=== PATIENT | male | born 1950 | race Caucasian/White ===

== ENCOUNTER 2018-05-31 15:54 | Inpatient (IN) | payer OTHER ==
[2018-05-31 18:15] LABS: BASO % 0.6 % (0-2.0); EOS % 0.1 % (0-4.5); HEMATOCRIT 24.8 % (35.4-49); HEMOGLOBIN 8.2 GM/dL (11.7-16.9); LYMPH % 5.4 % (8-40); MCH 29.4 pg (25.7-33.7); MCHC 33.1 g/dl (32.0-35.9); MEAN CELL VOLUME 88.8 fl (80-96); MEAN PLT VOLUME 7.8 fl (7.5-11.1); MONO % 4.6 % (3.8-10.2); NEUT % 89.3 % (42.8-82.8); PLATELET COUNT 270 K/MM3 (134-434); RBC 2.79 M/mm3 (4.00-5.60); RDW 18.4 % (11.9-15.9); WHITE BLOOD COUNT 10.6 K/mm3 (4.0-10.0)
--- NOTE | 2018-05-31 18:16 | PDOC ---
History of Present Illness - General Chief Complaint: Blood Pressure Problem Stated Complaint: Blood Pressure Problem Time Seen by Provider: 05/31/18 17:20 History Source: Patient, Family Exam Limitations: No Limitations - History of Present Illness Initial Comments: 05/31/18 18:12 Maksim 67 YOM with h/o CAD s/p CABG, CHF with Defibrillator, COPD on 2-3L O2, ESRD on T//Sa HD via tunnel cath, HTN, HLD, hypothyroidism, gout, BPH, rt IT hip fx s/p repair, c/b ?VTE provoking mesenteric ischemia now on Eliquis, Recent mesenteric ischemia s/p colectomy in 04/2018 at [facility], s/p paracentesis with intra abdominal fluid/SBP/infection? s/p abx. From rehab facility presenting with anterior substernal chest pain, palpitations , sweats and sob at 2pm today, since resolved. also noted to be hypotensive earlier, pt states there is history of hypotension and he is on midodrine. Social: former smoker, resides at [facility] ROS Constitutional: no fevers or chills. HEENT: no headache or dizziness. No congestion. No visual/hearing disturbances. CVS: no syncope. +cp, palp Resp: +sob. No cough. Gastrointestinal: no abdominal pain, nausea or vomiting. Genitourinary: no urinary sx, hematuria. MUSCULOSKELETAL: No joint pain and swelling. No neck or back pain. SKIN: no redness or skin changes, no discharge, no rash. No wounds. Hematologic: no easy bruising/bleeding. NEUROLOGIC: No headache, dizziness, LOC or altered mental status. No weakness, numbness or tingling. Allergic/Immunologic: no allergies All other systems reviewed and negative, or as documented in HPI. PE: General: Awake, malaised appearing HEENT: NCAT, PERRL, EOMI, left eye lid with soft yellow nodular lesion, no oropharyngeal lesions, dry mucus membranes Resp: CTAB, normal and even respirations, no respiratory distress CVS: RRR, no murmurs, 2+ peripheral pulses throughout, no peripheral edema Chest: anterior sternotomy scar Abdomen: soft, obese, nontender, +fluid wave. no peritoneal signs. mid abdominal ex-lap vertical scar. Back: nontender, normal inspection and ROM MSK: no edema, NAM x4, ROM intact. No clubbing or cyanosis. normal bulk and tone. Extremities: no calf tenderness Neuro: alert, oriented appropriately; no focal neurologic deficits Skin: cool to touch, cap refill <2 sec, pale 06/04/18 07:43 Past History - Past Medical History Allergies/Adverse Reactions: Allergies Allergy/AdvReac Type Severity Reaction Status Date / Time gluten Allergy Verified 05/31/18 19:44 No Known Drug Allergies Allergy Verified 05/31/18 19:44 Home Medications: Ambulatory Orders Allopurinol [Zyloprim -] 1 tab PO DAILY 03/17/18 Amiodarone HCl 1 tab PO DAILY 03/17/18 Aspirin [ASA -] 81 mg PO DAILY 03/17/18 Carvedilol 1 tab PO BID 03/17/18 Levothyroxine [Synthroid -] 1 tab PO DAILY 03/17/18 Pravastatin Sodium [Pravachol -] 1 tab PO DAILY 03/17/18 Zolpidem Tartrate [Ambien Cr] 1 tab PO HS 03/17/18 Acetaminophen [Tylenol] 650 mg PO DAILY PRN 05/31/18 Apixaban [Eliquis -] 2.5 mg PO BID 05/31/18 Calcium Carbonate [Calcium] 500 mg PO AC 05/31/18 Citalopram Hydrobromide [Citalopram HBr] 20 mg PO DAILY 05/31/18 Cyanocobalamin [Vitamin B12 -] 100 mcg PO DAILY 05/31/18 Folic Acid - 1 mg PO DAILY 05/31/18 Melatonin/Pyridoxine HCl (B6) [Melatonin 10 mg Tablet] 1 each PO HS 05/31/18 Midodrine HCl [Proamatine -] 5 mg PO TID 05/31/18 Vit B Comp No.3/Folic/C/Biotin [Krystina-Zane Rx Tablet] 1 each PO DAILY 05/31/18 Anemia: Yes Asthma: No Cancer: No Cardiac Disorders: Yes (defibrillator (Chevia)) CVA: No COPD: Yes CHF: Yes Dementia: No Diabetes: No GI Disorders: Yes (celiac sprue) Disorders: No HTN: No Hypercholesterolemia: No Liver Disease: No Seizures: No Thyroid Disease: Yes - Surgical History Cardiac Surgery: Yes (2006 bypass 5,defib) Orthopedic Surgery: Yes (right arm fracture repair) - Suicide/Smoking/Psychosocial Hx Smoking History: Former smoker Have you smoked in the past 12 months: No If you are a former smoker, when did you quit?: 12yrs Hx Alcohol Use: No Drug/Substance Use Hx: No Substance Use Type: None Hx Substance Use Treatment: No *Physical Exam - Vital Signs Last Vital Signs Temp Pulse Resp BP Pulse Ox 105/70 05/31/18 17:30 Moderate Sedation - Procedure Monitoring Vital Signs: Procedure Monitoring Vital Signs Temperature Pulse Rate Respiratory Rate Blood Pressure 105/70 05/31/18 17:30 O2 Sat by Pulse Oximetry (%) Heart Score/ECG Review - ECG Impressions Normal ECG: No Comment:: 05/31/18 18:41 EKG normal sinus rhythm, low voltage, no interval abnormalities, narrow QRS, ST and T wave segments and morphology normal. Nonspecific T wave abnormalities ED Treatment Course - LABORATORY CBC & Chemistry Diagram: 06/03/18 21:10 06/03/18 16:30 - RADIOLOGY Radiology Studies Ordered: Category Date Time Status CHEST X-RAY PORTABLE* [RAD] Stat Radiology 05/31/18 17:51 Ordered ABDOMEN US -LIMITED [US] Stat Ultrasound 05/31/18 17:52 Ordered Medical Decision Making - Medical Decision Making 05/31/18 18:40 I, Jeanne Manriquez MD, attest that this document has been prepared under my direction and personally reviewed by me in its entirety. I further attest, that it accurately reflects all work, treatment, procedures and medical decision -making performed by me. See HPI for details Vital signs reviewed, wnl. mildly soft BP. on home 2-3L O2 via nasal cannula for baseline COPD, BP stable on recheck Prior notes reviewed, including admissions, discharges and consultations. laboratory results and imaging reviewed, basic labs notable for acute change in H/H, drop down to 8.2/24.8 Guaic negative for occult blood. anuric coags_elevated, on NOAC witht INR >5. currently no bleeding episodes/ complication. Cr c/w ESRD. due for dialysis tomorrow. Cardiac panel_trop neg, reassuring; needs trending and serials/tele EKG normal sinus rhythm, low voltage, no interval abnormalities, narrow QRS, ST and T wave segments and morphology normal. Nonspecific T wave abnormalities ED course: uncomplicated. BP soft, but improved, no e/o infection or hypovolemia. has h/o chf, so no fluids for now or gently. RUQ sono to eval for ascites Dispo: anticipate admission for anemia, chest pain eval, deranged INR and trending, abdominal ascites of unclear etiology. 06/04/18 07:45 06/04/18 07:46 06/04/18 07:46 *DC/Admit/Observation/Transfer Diagnosis at time of Disposition: ESRD (end stage renal disease), S/P partial colectomy, Hypotension, Supratherapeutic INR, Chest pain - Discharge Dispostion Condition at time of disposition: Guarded Decision to Admit order: Yes - Referrals - Patient Instructions - Post Discharge Activity
[2018-05-31 18:35] LABS: PROTHROMBIN TIME (PATIENT) 61.5 SEC (9.7-13.0)
[2018-05-31 18:48] LABS: ALBUMIN 1.6 g/dl (3.4-5.0); ALK PHOS 168 U/L (45-117); ANION GAP 11 MMOL/L (8-16); BILIRUBIN,TOTAL 0.4 mg/dL (0.2-1); BLOOD UREA NITROGEN 45 mg/dL (7-18); CALCIUM 7.4 mg/dL (8.5-10.1); CHLORIDE 101 mmol/L (98-107); CO2 25 mmol/L (21-32); CREATININE 5.3 mg/dL (0.55-1.3); GLUCOSE,RANDOM 184 mg/dL (74-106); INR 5.13 (0.83-1.09); MAGNESIUM 2.3 mg/dL (1.8-2.4); PHOSPHOROUS 4.3 mg/dL (2.5-4.9); POTASSIUM 4.9 mmol/L (3.5-5.1); SGOT/AST 26 U/L (15-37); SGPT/ALT 24 U/L (13-61); SODIUM 137 mmol/L (136-145); TOT PROT 4.5 g/dl (6.4-8.2)
--- NOTE | 2018-05-31 22:38 | PDOC ---
*Physical Exam - Vital Signs Last Vital Signs Temp Pulse Resp BP Pulse Ox 98.4 F 75 18 104/54 L 99 05/31/18 20:54 05/31/18 20:54 05/31/18 20:54 05/31/18 20:54 05/31/18 20:54 ED Treatment Course - LABORATORY CBC & Chemistry Diagram: 05/31/18 17:56 05/31/18 17:56 - ADDITIONAL ORDERS Additional order review: Laboratory Results 05/31/18 05/31/18 05/31/18 19:25 18:08 17:56 PT with INR INR PTT (Actin FS) 38.6 H Sodium 137 Potassium 4.9 Chloride 101 Carbon Dioxide 25 Anion Gap 11 BUN 45 H Creatinine 5.3 H Creat Clearance w eGFR 10.84 Random Glucose 184 H Calcium 7.4 L Phosphorus 4.3 Magnesium 2.3 Total Bilirubin 0.4 AST 26 ALT 24 Alkaline Phosphatase 168 H Troponin I 0.02 Total Protein 4.5 L Albumin 1.6 L Stool Occult Blood Negative 05/31/18 17:56 PT with INR 61.50 H INR 5.13 H* PTT (Actin FS) Sodium Potassium Chloride Carbon Dioxide Anion Gap BUN Creatinine Creat Clearance w eGFR Random Glucose Calcium Phosphorus Magnesium Total Bilirubin AST ALT Alkaline Phosphatase Troponin I Total Protein Albumin Stool Occult Blood 05/31/18 17:56 RBC 2.79 L MCV 88.8 D MCHC 33.1 RDW 18.4 H MPV 7.8 D Neutrophils % 89.3 H D Lymphocytes % 5.4 L D Monocytes % 4.6 Eosinophils % 0.1 D Basophils % 0.6 Medical Decision Making - Medical Decision Making 05/31/18 22:36 Patient signed out to me by day attending Dr. Manriquez Will follow up ultrasound, will admit per plan for new anemia, chest pain 05/31/18 23:[address] Mireles will admit to med tele *DC/Admit/Observation/Transfer Diagnosis at time of Disposition: ESRD (end stage renal disease) - Discharge Dispostion Condition at time of disposition: Good Decision to Admit order: Yes - Referrals Referrals: Flakito Cintron MD [Primary Care Provider] - - Patient Instructions - Post Discharge Activity
--- NOTE | 2018-05-31 23:28 | PN ---
Teaching Attending Note Name of Resident: Ej Mireles ATTENDING PHYSICIAN STATEMENT I saw and evaluated the patient. I reviewed the resident's note and discussed the case with the resident. I agree with the resident's findings and plan as documented. PCP: Dr. Su and Dr. Cintron ([facility] in [place]) SUBJECTIVE: Seen and examined, please see resident note and paper documents from [facility] from 05/29 DC for further historical information. In summation he presents from [facility] [place] for hypotension and palpitations /SOB felt today during OT; he did have his HD session cut early due to malaise, etc. yesterday. He has a complicated recent history as documented below; he requested to be taken somewhere other than [facility] so he was brought here. He states that these sx are accompanied by anxiety and his daughter who is bedside does agree. He was found to be hypotensive in a matter that sounds consistent with his prior hospitalization for which he was started on midodrine several days ago. He had transient SOB with the episode. He tells me that he is on home O2 now at 2-3 liters but prior to his recent multiple hospitalizations he was not on any O2 and he hasn't smoked cigarettes in years. His functional status has diminished a remarkable amount since his hip fracture in april (please see below). He is being compliant with his abx for SBP; he had an echo done last week which showed moderate global hypokinesis. He is free of symptoms at this moment. Ascites noted on exam. Summation of prior hospitalization at [facility]: 04/26/2018 with R- intertrochanteric hip fx s/p ORIF complicated by mesenteric ischemia. He had an ex-lap with SBP (~55cm jejunum with extended R-hemicollectomy and 19cm ileum resected). He was discharged to [facility] 05/08/2018 on NOAC. He syncopized on 05/12 and had his AICD interrogated which had no documented significant issues. At that visit he was noted to be anemic and was transfused 2 PRBC at HD. Discharged back to rehab on 05/17. On 05/23/18 to 05/29/18 he was admitted for a third time to [facility] due to SOB/nausea at HD and was treated for SOB 2/2 fluid overload and SBP. That hospitalization he is documented as having a lactic acidosis. Echo done which revealed moderate global hypokinesis. He had imaging done showing free intraperitoneal fluid which grew out Klebsiella oxytoca and he was discharged on PO cipro/flagyl ( total of 14 days abx recommended). He had repeated bouts of hypotension documented; his antihypertensives were DCd and he was started on midodrine 5 TID prior to being sent back to [facility] on 05/29 10 sys ROS done and negative aside from HPI PMH and PSH reviewed; CAD s/p CABG 2005, CHF s/p AICD ([facility]), COPD, Chronic O2 dependence on Home O2 2-3L, ESRD TTS via tunneled catheter, hypotension on midodrine, gout, HTN, HLD, BPH Recent abdominal surgery for mesenteric ischemia Recent hip repair with rehab complicated for the above Home Meds: Eliquis 2.5 BID, amio 200 QD, ASA 81 QD, LT4 100 QD, Ambien 12.5 qHS , pravastatin 40 QD, Loperamide 2mg PO TID, allopurinol 100 QD, metro 500 PO q8H , cipro 500 PO Q12H OBJECTIVE: VS, labs, imaging reviewed NAD, AAO, resting comfortably in bed with no complaints on 2L O2 via NC Abdomen is distended with positive fluid wave; post-op ex-lap scar noted with good healing and no surrounding cellulitic change RRR s1/2 no mgr Lungs CTAB w/ sym exp CN2-12 wnl, no fnd ASSESSMENT AND PLAN: Patient presents after multiple complex admissions at outside facility with recurring hypotension and transient SOB; he wishes to pursue his further care at [facility] 1) Transient Hypotension with SOB -Based on the present information we have, this sounds similar to his previous presentations at the alf. He is on his baseline O2 saturation at 2-3L but this has only been his requirements for the past month since the surgery. -For the SOB we will investigate heart failure as potential cause given that he had prior incomplete HD session with 1+ LE edema and trace crackles on exam. Checking BNP. Just had CTA at other facility to r/o PE so no need to repeat. Checking flu and viral pannel in case he caught a pathogen at his facility. No clarice PNA. COPD exacerbation less likely given that he is a nonsmoker for many years. -For the transient hypotension, we will obtain full old records. Need the full echo report, but he is known to have moderate global hypokinesis per DC summary. He was recently started on midodrine 5 TID for this which will be continued. We will interrogate his pacemaker and check orthostatics. He doesn' t appear septic, etc. but he has multiple other reasons for continued orthostasis. Would also DC his ambien due to potential autonomic interplay. 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 2) Palpitations -Similar to prior episodes he had in the past; no clarice chest pain, persay. Happened with #1. Will place on telemetry and interrogate pacemaker. Will optimize K and Mg. CV to see. 3) +Ascites with SBP, ?h/o cirrhosis -Checking hepatitis pannel and HIV pannel -Continue cipro/flagyl for his full 14 day course. Obtain full sensativities from [facility]. If ID is needed can involve. -Check RUQ US. He does have ascites on exam but don't want to precipitate any hypotension by doing a STAT paracentesis. 4) CHF (need full echo report; moderate global hypokinesis known from [facility]) -Cardiomegaly noted; known moderate global hypokinesis -Fluid management at HD -In terms of PO meds, he is not on any evidence-based BB or DELANO; I suspect this is due to his recurring hypotension. Will need to go over old records to ensure he is on as proper GDMT as possible. CV to see, as well. 5) ESRD on HD -Dry weight in 80kg range; his key sander doesn't come here. Via permacath. -Consult nephro for HD. Monitor BMP, Mg, Phos. Renal Diet. QD weights. He does not make urine. 6) Supratherepeutic INR -On eliquis; holding and hold ASA to mitigate bleeding risk. Trend INR. Resume meds when clinically appropriate. May be due to excretion? He is on dose-adjusted. No s/s bleeding 7) Recent Mesenteric Ischemia -On eliquis with ST INR; post op scars noted. -Resume eliquis when clinically appropriate; obtain old surgical records. 8) Recent R-intertrochanteric fx s/p ORIF 04/26 -Has not been ambulating post op. Consult PT. Pain is controlled at this point. 9) HTN -Home meds DCd on prior visit due to recurring hypotension 10) HLD -Continue home statin 11) Recurring transient hypotension on midodrine -Per above 12) Hypothyroidism -Check TSH, continue LT4 13) Hx Gout -Continue allopurinol 14) Hx CAD s/p CABG 2005 -Resume ASA when clinically appropriate. Continue statin. not documented as being on plavix, BB, delano. CV seeing for above issue. 15) Hypoalbuminemia -Check prealbumin; consult nutrition 16) Chronic Normocytic Anemia -Has required transfusions in past; monitor and XF perameter of 8 17) Leukocytosis -Could be due to ongoing issues from SBP. Trend and obtain old labs from [facility] to compare. 18) Weakness -Consulting PT 19) Need for AVF -Planning as outpatient; encourage followup FENA -2L fluid restriction -PRN replete; QD BMP, Mg, Phos -Renal diet -As tolerated with PT consult Full Code
--- NOTE | 2018-06-01 01:02 | HP ---
<Sara Kapadia - Last Filed: 06/05/18 06:44> CHIEF COMPLAINT: SOB + Palpitations + Chest pain PCP: Dr. Cintron CARDIO: Dr. Shah ([facility]) HISTORY OF PRESENT ILLNESS: 67 y/o F with PMHx of CAD s/p CABG, Defibrillator ([employer]), COPD (on 2-3L Home O2), ESRD (On HD // via Right Tunnel Cath), CHF presents from [facility]) with Chest pain. Patients daughter was present at bedside and provided the bulk of the history. In early April, Patient had his Right Hip repaired s/p fall. A few days later patient became unresponsive and was found to have VTE provoking mesenteric ischemia for which a colectomy was preformed. Since then, patient has been declining, becoming more anxious and lethargic. One week ago, patients HD session was stopped short because he became nauseous. Later that day he was sent to [facility] for lethargy and was found to have ascities for which a paracentesis was preformed; Unclear if the fluid was infected however patient was discharged on Metronidazole 500mg PO. Earlier today, patient became anxious and ended his HD session early again. Today while sitting, patient felt a 5/10 substernal chest pain described as a nonradiating Ache. It was accompanied by palpitations, SOB and diaphoresis at approx. 2pm. Currently his chest pain in 0/10. Patient mentions his chest pain comes on with thoughts of fear and anxiety. He has had this combination of symptoms The daughter mentions that the patient has had increased anxiety since begining HD approximately 2 years ago, and it has become more intense since his hip sx. Additionally she mentions that his anxiety contributes to his palpitations. He has had psych follow up at this Rehab center and has mentioned "feelings of uselessness" to his daughter. Patient recently started on Midodrine approx. 1 week ago; his BP at the rehab has reached 75/45 earlier today. 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 Ambulation: Without assistance Residence: [facility] Family History: Father: after MS at age 52 Mother: Heart disease Allergies gluten Allergy (Verified 05/31/18 19:44) No Known Drug Allergies Allergy (Verified 05/31/18 19:44) HOME MEDICATIONS: Home Medications Medication Instructions Recorded Allopurinol [Zyloprim -] 1 tab PO DAILY 03/17/18 Amiodarone HCl 1 tab PO DAILY 03/17/18 Aspirin [ASA -] 81 mg PO DAILY 03/17/18 Carvedilol 1 tab PO BID 03/17/18 Levothyroxine [Synthroid -] 1 tab PO DAILY 03/17/18 Pravastatin Sodium [Pravachol -] 1 tab PO DAILY 03/17/18 Zolpidem Tartrate [Ambien Cr] 1 tab PO HS 03/17/18 Acetaminophen [Tylenol] 650 mg PO DAILY PRN 05/31/18 Apixaban [Eliquis -] 2.5 mg PO BID 05/31/18 Calcium Carbonate [Calcium] 500 mg PO AC 05/31/18 Citalopram Hydrobromide 20 mg PO DAILY 05/31/18 [Citalopram HBr] Cyanocobalamin [Vitamin B12 -] 100 mcg PO DAILY 05/31/18 Folic Acid - 1 mg PO DAILY 05/31/18 Melatonin/Pyridoxine HCl (B6) 1 each PO HS 05/31/18 [Melatonin 10 mg Tablet] Midodrine HCl [Proamatine -] 5 mg PO TID 05/31/18 Vit B Comp No.3/Folic/C/Biotin 1 each PO DAILY 05/31/18 [Krystina-Zane Rx Tablet] REVIEW OF SYSTEMS As per HPI PHYSICAL EXAMINATION Vital Signs - 24 hr 05/31/18 05/31/18 05/31/18 17:30 18:35 19:00 Temperature Pulse Rate [ 77 72 Left Radial] Respiratory 18 Rate Blood Pressure 105/70 106/59 L 88/56 L [Arm] O2 Sat by Pulse 100 100 Oximetry (%) 05/31/18 05/31/18 19:44 20:54 Temperature 98.4 F Pulse Rate [ 72 75 Left Radial] Respiratory 20 18 Rate Blood Pressure 107/54 L 104/54 L [Arm] O2 Sat by Pulse 100 99 Oximetry (%) GENERAL: A&Ox3, NAD HEAD: NCAT EYES: PERRL, EOMI EARS, NOSE, THROAT: Oropharynx clear without exudates. Moist mucous membranes. NECK: No JVD, Right sided tunnel Catheter placement LUNGS: CTA b/l, No wheezes, no crackles, on 2L NC HEART: Regular rate and rhythm, normal S1 and S2 without murmur ABDOMEN: Soft, nontender, Distended with positive fluid wave, + bowel sounds, no guarding, no rebound EXTREMITIES: 2+ pulses, warm, No peripheral edema. NEUROLOGICAL: Cranial nerves II-XII intact. Normal speech. Gross sensation intact throughout. 5/5 Muscle strength throughout. SKIN: Warm, dry. Post-Colectomy scar mid-abdomen without active drainage, not tender to palpation. Laboratory Results - last 24 hr 05/31/18 05/31/18 05/31/18 17:56 17:56 17:56 WBC 10.6 H RBC 2.79 L Hgb 8.2 L Hct 24.8 L D MCV 88.8 D MCH 29.4 MCHC 33.1 RDW 18.4 H Plt Count 270 D MPV 7.8 D Absolute Neuts (auto) 9.5 H Neutrophils % 89.3 H D Lymphocytes % 5.4 L D Monocytes % 4.6 Eosinophils % 0.1 D Basophils % 0.6 Nucleated RBC % 0 PT with INR 61.50 H INR 5.13 H* PTT (Actin FS) Sodium 137 Potassium 4.9 Chloride 101 Carbon Dioxide 25 Anion Gap 11 BUN 45 H Creatinine 5.3 H Creat Clearance w eGFR 10.84 Random Glucose 184 H Calcium 7.4 L Phosphorus 4.3 Magnesium 2.3 Total Bilirubin 0.4 AST 26 ALT 24 Alkaline Phosphatase 168 H Troponin I 0.02 Total Protein 4.5 L Albumin 1.6 L Stool Occult Blood 05/31/18 05/31/18 05/31/18 18:08 19:25 22:00 WBC RBC Hgb Hct MCV MCH MCHC RDW Plt Count MPV Absolute Neuts (auto) Neutrophils % Lymphocytes % Monocytes % Eosinophils % Basophils % Nucleated RBC % PT with INR INR PTT (Actin FS) 38.6 H Sodium Potassium Chloride Carbon Dioxide Anion Gap BUN Creatinine Creat Clearance w eGFR Random Glucose Calcium Phosphorus Magnesium Total Bilirubin AST ALT Alkaline Phosphatase Troponin I 0.03 Total Protein Albumin Stool Occult Blood Negative ASSESSMENT/PLAN: 67 y/o F with PMHx of CAD s/p CABG, Defibrillator ([employer]), COPD (on 2-3L Home O2), ESRD (On HD // via Right Tunnel Cath), CHF presents with SOB, Palpitations and Hypotension #SOB + Palpitations -Uses 2-3L via NC at home for the past month -CTA at [facility] did not reveal PE -CXR did not reveal effusion, infiltrate -Unclear Etiology however will consider HF -BNP, Flu swab ordered -Monitor Electrolytes -Cardiology (Dr. Rudolph) Consulted #Hypotension -Transient as patient was 104/54 in ED -Will need to obtain Echo report and prior Cardiology records -Will need to interrogate pacemaker -Recently started on Midodrine 5mg TID (as per [facility] DC Summary) -Hold Ambien #Ascites with SNP -S/P Thoracentesis at [facility]; Obtain records for Cytologies -Hepatitis panel, HIV pannel, RUQ US ordered -Continue PO Flagyl #CHF -Will need to obtain Echo report and prior Cardiology records as patients home med list does not include BB or ACEi -Cardiology (Dr. Rudolph) Consulted -Fluid management at HD #ESRD on HD (TuThSat) -Via Tunnel Catheter, Anuric at baseline -Nephrology (Dr. Jones) consulted for HD -Continue to monitor Electrolytes -Renal Diet -Daily weights -Prior plans for AVF were placed on hold as patient had R Hip fx, will need to follow up as outpatient #SupraTherapeutic INR -On Eliquis (Renal dosing) -Will Hold ASA, Eliquis -Trend INR #Normocytic Anemia -Unclear Etiology -Consider Transfusion threshold 8.0 however will leave final decision as per primary team #Leukocytosis -Afebrile however recent hx of Ascites, SBP -Trend #HypoAlbuminemia -In the setting of of CHF, Liver disease; Still consider malnutrition -Will Check Prealbumin -Consider Dietary consult #Mesenteric Ischemia s/p Surgery, on Eliquis -Supratherapeutic INR noted today -Hold Eliquis -Would benefit from obtaining prior surgical records #Hx of Right Hip Fx s/p ORIF -Would benefit from obtaining prior surgical records -Will Consult PT as patient has not been ambulating post-op #Hx of HTN/HLD -Has been becoming Hypotensive at home -Hold anti-htn meds -Continue home dose stating #Hx of HypoThyroidism -Check TSH -Continue home dose Levothyroxine #Hx of Gout -Continue home dose Allopurinol #Hx of CAD s/p CABG -Continue home dose Statin -Hold ASA -Cardiology (Dr. Rudolph) Consulted for further rec's #FEN -PO Fluids -Lytes WNL -Renal diet #PPx -DVT: SCDs Dispo: Admit to tele Visit type - Emergency Visit Emergency Visit: Yes ED Registration Date: 05/31/18 Care time: The patient presented to the Emergency Department on the above date and was hospitalized for further evaluation of their emergent condition. - New Patient This patient is new to me today: Yes Date on this admission: 06/05/18 - Critical Care Critical Care patient: No <Gregg Williamson - Last Filed: 06/12/18 21:00> Seen and examined;agree with all the above aside form as edited by me in my own note. Thank you. Was present for all vital parts of encounter; plan discussed with me. Agree with above as documented by the resident.
[2018-06-01 06:21] LABS: BASO % 0.2 % (0-2.0); EOS % 0.4 % (0-4.5); HEMATOCRIT 23.9 % (35.4-49); HEMOGLOBIN 7.5 GM/dL (11.7-16.9); LYMPH % 7.4 % (8-40); MCHC 31.2 g/dl (32.0-35.9); MEAN CELL VOLUME 89.7 fl (80-96); MEAN PLT VOLUME 7.6 fl (7.5-11.1); MONO % 5.6 % (3.8-10.2); NEUT % 86.4 % (42.8-82.8); PLATELET COUNT 243 K/MM3 (134-434); RBC 2.67 M/mm3 (4.00-5.60); RDW 18.1 % (11.9-15.9); WHITE BLOOD COUNT 9.8 K/mm3 (4.0-10.0)
[2018-06-01 06:48] LABS: ALBUMIN 1.5 g/dl (3.4-5.0); ALK PHOS 149 U/L (45-117); ANION GAP 8 MMOL/L (8-16); BILIRUBIN,TOTAL 0.4 mg/dL (0.2-1); BLOOD UREA NITROGEN 49 mg/dL (7-18); CALCIUM 7.1 mg/dL (8.5-10.1); CHLORIDE 102 mmol/L (98-107); CO2 27 mmol/L (21-32); CREATININE 5.5 mg/dL (0.55-1.3); GLUCOSE,RANDOM 155 mg/dL (74-106); MAGNESIUM 2.2 mg/dL (1.8-2.4); PHOSPHOROUS 4.2 mg/dL (2.5-4.9); POTASSIUM 4.9 mmol/L (3.5-5.1); PREALBUMIN 4.7 mg/dl (20-40); SGOT/AST 20 U/L (15-37); SGPT/ALT 18 U/L (13-61); SODIUM 138 mmol/L (136-145); TOT PROT 4.3 g/dl (6.4-8.2)
--- NOTE | 2018-06-01 09:38 | PN ---
Physical Exam: SUBJECTIVE: Patient seen and examined at bed side today. States that he is feeling uncomfortable in the stretcher. Otherwise he fees fine. Review of systems negative. Patient's mother at bed side requesting for him to get something to eat as he hasn't eaten for more than 25 hours. Information as per discharge summary from [facility] (attached in the chart):- Patient is a 67 year old male new patient at [facility] came from a fci at [facility] for evaluation of chest pain and shortness of breath. Patient reports he was at usual state of health until 04/26/18 then he had a left hip fracture underwent ORIF at [facility]. Had a DVT followed by mesenteric ischemia s/p Ex lap with right hemicolectomy and resection of 55 cm of jejunum. Patient on Eliquis 2.5 mg BID. He was again readmitted for hypotension, shortness of breath and nausea during dialysis, Midodrine was started. At that admission, was found to have ascites on CT abdomen/Pelvis, s/p paracentesis 700 mls, cx positive for Klebsiella. Was treated with Ceftriaxone and discharged home on Ciprofloxacin BID and Metronidazole for 7 days. OBJECTIVE: Vital Signs Period Temp Pulse Resp BP Sys/Emery Pulse Ox Last 24 Hr 98.2 F-98.4 F 72-77 17-20 88-110/54-70 98-100 GENERAL: Middle aged male, lying in bed, is awake, alert, and fully oriented, in no acute distress. EYES: EOM intact, no pallor or icterus. NECK: Supple. LUNGS: B/L coarse breath sounds, no wheeze. HEART: Regular rate and rhythm, S1, S2 with systolic murmur. ABDOMEN: Vertical surgical scar johnny + wellington removed, area looks dry and clean , abdomen is soft, nontender, no organomegaly. UPPER EXTREMITIES: 2+ pulses, warm, well-perfused, no edema. LOWER EXTREMITIES: Left Heel: Stage II ulcer + B/L no edema. NEUROLOGICAL: No facial droop, Normal speech, gait not observed. PSYCH: Normal mood, normal affect. SKIN: Warm, dry, normal turgor, no rashes or lesions noted Laboratory Results - last 24 hr 05/31/18 05/31/18 05/31/18 17:56 17:56 17:56 WBC 10.6 H RBC 2.79 L Hgb 8.2 L Hct 24.8 L D MCV 88.8 D MCH 29.4 MCHC 33.1 RDW 18.4 H Plt Count 270 D MPV 7.8 D Absolute Neuts (auto) 9.5 H Neutrophils % 89.3 H D Lymphocytes % 5.4 L D Monocytes % 4.6 Eosinophils % 0.1 D Basophils % 0.6 Nucleated RBC % 0 PT with INR 61.50 H INR 5.13 H* PTT (Actin FS) Sodium 137 Potassium 4.9 Chloride 101 Carbon Dioxide 25 Anion Gap 11 BUN 45 H Creatinine 5.3 H Creat Clearance w eGFR 10.84 Random Glucose 184 H Calcium 7.4 L Phosphorus 4.3 Magnesium 2.3 Total Bilirubin 0.4 AST 26 ALT 24 Alkaline Phosphatase 168 H Troponin I 0.02 B-Natriuretic Peptide Total Protein 4.5 L Albumin 1.6 L Prealbumin Stool Occult Blood 05/31/18 05/31/18 05/31/18 18:08 19:25 22:00 WBC RBC Hgb Hct MCV MCH MCHC RDW Plt Count MPV Absolute Neuts (auto) Neutrophils % Lymphocytes % Monocytes % Eosinophils % Basophils % Nucleated RBC % PT with INR INR PTT (Actin FS) 38.6 H Sodium Potassium Chloride Carbon Dioxide Anion Gap BUN Creatinine Creat Clearance w eGFR Random Glucose Calcium Phosphorus Magnesium Total Bilirubin AST ALT Alkaline Phosphatase Troponin I 0.03 B-Natriuretic Peptide Total Protein Albumin Prealbumin Stool Occult Blood Negative 06/01/18 06/01/18 06/01/18 05:10 05:30 05:30 WBC 9.8 RBC 2.67 L Hgb 7.5 L Hct 23.9 L MCV 89.7 MCH 28.0 MCHC 31.2 L RDW 18.1 H Plt Count 243 MPV 7.6 Absolute Neuts (auto) 8.4 H Neutrophils % 86.4 H Lymphocytes % 7.4 L D Monocytes % 5.6 Eosinophils % 0.4 D Basophils % 0.2 Nucleated RBC % 0 PT with INR INR PTT (Actin FS) Sodium 138 Potassium 4.9 Chloride 102 Carbon Dioxide 27 Anion Gap 8 BUN 49 H Creatinine 5.5 H Creat Clearance w eGFR 10.39 Random Glucose 155 H Calcium 7.1 L Phosphorus 4.2 Magnesium 2.2 Total Bilirubin 0.4 AST 20 ALT 18 Alkaline Phosphatase 149 H Troponin I 0.03 B-Natriuretic Peptide Total Protein 4.3 L Albumin 1.5 L Prealbumin 4.7 L Stool Occult Blood 06/01/18 07:55 WBC RBC Hgb Hct MCV MCH MCHC RDW Plt Count MPV Absolute Neuts (auto) Neutrophils % Lymphocytes % Monocytes % Eosinophils % Basophils % Nucleated RBC % PT with INR INR PTT (Actin FS) Sodium Potassium Chloride Carbon Dioxide Anion Gap BUN Creatinine Creat Clearance w eGFR Random Glucose Calcium Phosphorus Magnesium Total Bilirubin AST ALT Alkaline Phosphatase Troponin I B-Natriuretic Peptide 36310.4 H Total Protein Albumin Prealbumin Stool Occult Blood Active Medications Generic Name Dose Route Start Last Admin Trade Name Freq PRN Reason Stop Dose Admin Amiodarone HCl mg 06/01/18 10:00 Cordarone - PO DAILY [facility] Citalopram Hydrobromide 20 mg 06/01/18 10:00 Celexa - PO DAILY [facility] Cyanocobalamin 100 mcg 06/01/18 10:00 Vitamin B12 - PO DAILY [facility] Folic Acid 1 mg 06/01/18 10:00 Folic Acid - PO DAILY [facility] Levothyroxine Sodium mcg 06/01/18 10:00 Synthroid - PO DAILY [facility] Metronidazole 500 mg 06/01/18 10:00 Flagyl - PO DAILY [facility] Midodrine 5 mg 06/01/18 14:00 Proamatine - PO TID [facility] Non-Formulary Medication 500 mg 06/01/18 08:30 Calcium Carbonate [Calcium] PO AC [facility] Non-Formulary Medication 1 each 06/01/18 10:00 Vit B Comp No.3/Folic/C/Biotin [Krystina-Zane Rx Tablet] PO DAILY [facility] IMAGING: The CTA of A/P report from 05/23/18 revealed a prior hemicolectomy, dilated loops of small bowel, large volume of ascites with scattered bubbles of free air in the LUQ, homogeneous liver that was not enlarged, normal appearing spleen, non specific segmental small bowel wall thickening. ? if related to surgery vs. bowel leak. CTA of the chest 05/23/18: Report was provided: small rt. pleural effusion, filling defect in SVC around HD catheter, partially occluded infra azygous/ supra azygous SVC, partially occluding filling defect in the lt. brachiocephalic vein, innumerable chest wall and mediastinal collateral 05/24/[address] scan of the A/P with PO and IV contrast to eval for the previously noted air bubbles in ascites: small b/l pleural effusions, no extravasation of contrast, mod amount of fluid in abdomen with thin rim of peripheral enhancement and multiple foci of free air. ? normal peritoneal enhancement with ? resolving post surgical airvs. infectious fluid collection. 05/24/18 US of abdomen at time of paracentesis: innumerable loculations and septations: paracentesis performed in "outer right abdomen". It does appear that 60 cc was removed for labarotory analysis. Ultrasound abdomen 06/01/18: Complex fluid/Ascites with septations seen in [address] abdomen/Pelvis. CXR: s/p CABG, right sided pleural effusion, infiltrate at the bases cannot be excluded. ASSESSMENT/PLAN: Patient is a 67 year old male with PMHx of CAD s/p CABG, Defibrillator ([employer]), COPD (on 2-3L Home O2), ESRD (On HD // via Right Tunnel Cath) , CHF presents from [facility]) with Chest pain. # Chest pain -unlikely ACS Troponin x 3 negative Likely due to anxiety. EKG: Sinus rhythm with prolonged Qtc. ECHO pending CXR: s/p CABG, right sided pleural effusion, infiltrate at the bases cannot be excluded. # Shortness of breath/Palpitations likely from anxiety # Prolonged Qtc Qtc is 544. Avoid qtc prolonging agents. # Recent hx of ascites Paracentesis done at [facility], cx Klebsiella and discharged on Metronidazole and Ciprofloxacin Medical records from [facility] attached in the chart. Ultrasound of abdomen 05/31/18 showed Complex fluid/Ascites with septations seen in 4 quadrants Hepatitis panel, HIV pending Started on IV Flagyl 500 mg TID and IV Ceftriaxone daily. ID consult requested. Pending CT abdomen/Pelvis with IV and PO contrast, HD to follow after CT. GI consult, recommended ID/Surgical evaluation. # History of ischemic colitis s/p right hemicolectomy # Congestive heart failure BNP 60851.4. ECHO pending Hold Coreg 3.125 mg PO BID # ESRD on TTS AVF created on 05/03/18 at [facility]. # Normocytic anemia likely from anemia of chronic disease H/H 8.2/24.8--> 7.5/23.9 Continue Folic acid and Vitamin B12 # CAD s/p CABG Continue Aspirin 81 mg # Hypotensive episodes during dialysis On Midodrine 5 mg TID # Hypothyroidism Continue Synthroid 100 mcg # Insomnia On Melatonin 10 mg, hold for now # Depression Continue Citalopram and Zolpidem # FEN Not on IV Fluids Electrolytes WNL Sodium controlled diet # Prophylaxis For DVT: On Eliquis at home, will hold since he might need thoracocentesis For GI: Not indicated # Code Status: Full Code # Dispo: Admit in Med. Surg. Duration of stay unknown. Plan of care explained to the patient and his family. They verbalized understanding. Case discussed with Dr. Pink. Visit type - Emergency Visit Emergency Visit: Yes ED Registration Date: 05/31/18 Care time: The patient presented to the Emergency Department on the above date and was hospitalized for further evaluation of their emergent condition. - New Patient This patient is new to me today: Yes Date on this admission: 06/01/18 - Critical Care Critical Care patient: No - Discharge Referral Referred to [facility] Med P.C.: No
--- NOTE | 2018-06-01 09:49 | PN ---
Teaching Attending Note Name of Resident: Silvina Cleveland ATTENDING PHYSICIAN STATEMENT I saw and evaluated the patient. I reviewed the resident's note and discussed the case with the resident. I agree with the resident's findings and plan as documented. SUBJECTIVE: Mr Schaeffer complains of weakness. Currently no cp, sob, n/v. OBJECTIVE: Last Vital Signs Temp Pulse Resp BP Pulse Ox 36.8 C 72 17 110/54 L 98 06/01/18 06:20 06/01/18 06:20 06/01/18 06:20 06/01/18 06:20 06/01/18 06:20 Gen: nad Pulm: ctab w/o w/r/r CV: rrr w/o m/r/g Abd: +bs, s/nt, distention/ascites Ext: minimal edema BLE CBC, BMP 06/01/18 05:30 06/01/18 05:30 ASSESSMENT AND PLAN: Problem List - Problems (1) Hypotension Assessment/Plan: -has worsened since surgeries back in April per patient -cannot tolerate hypertensives -on midodrine to maintain blood pressure for HD -? if aspect of sepsis considering loculated ascites -start antibiotics -monitor -continue midodrine Code(s): I95.9 - HYPOTENSION, UNSPECIFIED (2) ESRD (end stage renal disease) Assessment/Plan: -case d/w Dr Jones -planning for HD Code(s): N18.6 - END STAGE RENAL DISEASE (3) Ascites Assessment/Plan: -patient with ischemic colitis s/p partial resection -recent paracentesis at OSH showing SBP -started on antibiotics -U/S here showing loculations -GI and surgery consulted -start on IV rocephin and flagyl -ID consult as well Code(s): R18.8 - OTHER ASCITES (4) Supratherapeutic INR Assessment/Plan: -currently holding eliquis -recheck INR -? if underlying liver pathology as elevated more than expected Code(s): R79.1 - ABNORMAL COAGULATION PROFILE (5) CAD (coronary artery disease) Assessment/Plan: -case d/w Cardiology -ECHO reviewed -holding coreg secondary to hypotension Code(s): I25.10 - ATHSCL HEART DISEASE OF [place] CORONARY ARTERY W/O ANG PCTRS (6) CHF (congestive heart failure) Assessment/Plan: -ECHO reviewed -most likely secondary to incomplete HD -case d/w cardiology -planning for HD Code(s): I50.9 - HEART FAILURE, UNSPECIFIED Qualifiers: Heart failure chronicity: acute on chronic (7) Hypothyroid Assessment/Plan: -continue synthroid Code(s): E03.9 - HYPOTHYROIDISM, UNSPECIFIED (8) SBP (spontaneous bacterial peritonitis) Assessment/Plan: -with loculated ascites -change to IV antibiotics as above -consult GI/ID/surgery Code(s): K65.2 - SPONTANEOUS BACTERIAL PERITONITIS
[2018-06-01] MEDS ORDERED: metroNIDAZOLE 250 MG TABLET PO SCH (10:00)
[2018-06-01] MEDS ORDERED: LEVOTHYROXINE NA 100 MCG TABLET (FP) PO SCH (10:00)
[2018-06-01] MEDS ORDERED: AMIODARONE HCL 200 MG TABLET (FP) PO SCH (10:00)
--- NOTE | 2018-06-01 12:44 | CON.NEP ---
Consult - History of Present Illness History of Present Illness: Patient is a 67 y/o gentleman with a significant past medical history of CAD s/ p CABG, Defibrillator ([employer]), COPD (on 2-3L Home O2), ESRD (On HD / via Right Tunnel Cath), CHF, R-intertrochanteric hip fx s/p ORIF complicated by mesenteric ischemia (04/2018), SBP who presented to [facility] from [facility]) with hypotension and palpitations/SOB while in OT. Furthermore, pt endorses that he has been experiencing anxiety before his HD sessions, last HD was this past Tuesday. Pt endorses he was started on HD approximately 2 years ago via R permacath. Presently resting in bed, family at bedside. Denies sob, chest pain, dizziness currently. Classified Advertising Manager: Dr Flakito Cintron - Alcohol/Substance Use Hx Alcohol Use: No - Smoking History Smoking history: Former smoker Have you smoked in the past 12 months: No If you are a former smoker, when did you quit?: 12yrs Home Medications - Allergies Allergies/Adverse Reactions: Allergies Allergy/AdvReac Type Severity Reaction Status Date / Time gluten Allergy Verified 05/31/18 19:44 No Known Drug Allergies Allergy Verified 05/31/18 19:44 - Home Medications Home Medications: Ambulatory Orders Allopurinol [Zyloprim -] 1 tab PO DAILY 03/17/18 Amiodarone HCl 1 tab PO DAILY 03/17/18 Aspirin [ASA -] 81 mg PO DAILY 03/17/18 Carvedilol 1 tab PO BID 03/17/18 Levothyroxine [Synthroid -] 1 tab PO DAILY 03/17/18 Pravastatin Sodium [Pravachol -] 1 tab PO DAILY 03/17/18 Zolpidem Tartrate [Ambien Cr] 1 tab PO HS 03/17/18 Acetaminophen [Tylenol] 650 mg PO DAILY PRN 05/31/18 Apixaban [Eliquis -] 2.5 mg PO BID 05/31/18 Calcium Carbonate [Calcium] 500 mg PO AC 05/31/18 Citalopram Hydrobromide [Citalopram HBr] 20 mg PO DAILY 05/31/18 Cyanocobalamin [Vitamin B12 -] 100 mcg PO DAILY 05/31/18 Folic Acid - 1 mg PO DAILY 05/31/18 Melatonin/Pyridoxine HCl (B6) [Melatonin 10 mg Tablet] 1 each PO HS 05/31/18 Midodrine HCl [Proamatine -] 5 mg PO TID 05/31/18 Vit B Comp No.3/Folic/C/Biotin [Krystina-Zane Rx Tablet] 1 each PO DAILY 05/31/18 Nephrology Consult - Height Height: 1.73 m - Weight Weight: 78.471 kg - BMI Body Mass Index (BMI): 26.3 - Lab Results CBC,BMP: CBC, BMP 06/01/18 05:30 06/01/18 05:30 Anion Gap: Anion Gap Anion Gap 8 MMOL/L (8-16) 06/01/18 05:30 - Physical Examination Vital Signs: Vital Signs Temperature 98.2 F 06/01/18 06:20 Pulse Rate 72 06/01/18 06:20 Respiratory Rate 17 06/01/18 06:20 Blood Pressure 110/54 L 06/01/18 06:20 O2 Sat by Pulse Oximetry (%) 98 06/01/18 06:20 Constitutional: Yes: Calm Eyes: Yes: EOM Intact (Nodular lesion above left eyelid.) HENT: Yes: Atraumatic, Normocephalic Cardiovascular: Yes: Regular Rate and Rhythm, S1, S2 Respiratory: Yes: Diminished Gastrointestinal: Yes: Soft (Linear Surgical scar abdomen s/p ex-lap), Ascites, Hypoactive Bowel Sounds Access for Hemodialysis: Permacath Extremities: Yes: Other (2= pitting edema b/l lower extremities) Edema: LLE: 2+, RLE: 2+ Neurological: Yes: Alert, Oriented Assessment/Plan Pt is a 67 y/o gentleman with a significant past medical history of CAD s/p CABG , Defibrillator ([employer]), COPD (on 2-3L Home O2), ESRD (On HD // via Right Tunnel Cath), CHF, R-intertrochanteric hip fx s/p ORIF complicated by mesenteric ischemia (04/2018) who presented to [facility] from [facility]) with hypotension and palpitations/SOB while in OT. # ESRD -Will undergo HD session today. Pt endorses that his usual HD time is 3 hours. -Monitor BP -BMP in AM -Antihypertensive medications held due to recent episodes of hypotension. Will continue to follow.
--- NOTE | 2018-06-01 12:46 | EKG ---
Test Reason : Blood Pressure : / mmHG Vent. Rate : 080 BPM Atrial Rate : 080 BPM P-R Int : 202 ms QRS Dur : 108 ms QT Int : 472 ms P-R-T Axes : 016 036 027 degrees QTc Int : 544 ms NORMAL SINUS RHYTHM SEPTAL INFARCT , AGE UNDETERMINED PROLONGED QT ABNORMAL ECG NO PREVIOUS ECGS AVAILABLE Confirmed by SYLVESTER HEMPHILL MD ([id number]) on 06/01/2018 12:46:20 PM Referred By: Confirmed By:SYLVESTER HEMPHILL MD
--- NOTE | 2018-06-01 14:18 | ECHO ---
Name: CARYN, LARY Exam:Adult Echocardiogram Study Date: 06/01/2018 10:30 AM Age: 67 yrs Reason For Study: EVALUATE LV FUNCTION MMode/2D Measurements & Calculations IVSd: 0.90 cm Ao root diam: 3.4 cm LVIDd: 4.2 cm LA dimension: 3.9 cm LVIDs: 3.3 cm LVPWd: 1.00 cm LVPWs: 2.0 cm EDV(Teich): 78.9 ml ESV(Teich): 43.4 ml Doppler Measurements & Calculations MV E max maciel: 41.5 cm/sec Ao V2 max: 105.2 cm/sec MV A max maciel: 65.6 cm/sec Ao max P.5 mmHg MV E/A: 0.63 MV dec time: 0.13 sec LV V1 max P.5 mmHg TR max maciel: 238.9 cm/sec LV V1 max: 79.5 cm/sec TR max P.4 mmHg PA V2 max: 97.1 cm/sec Med Peak E' Maciel: 7.7 cm/sec PA max P.8 mmHg Med E/e': 5.4 Lat Peak E' Maciel: 10.7 cm/sec Lat E/e': 3.9 Procedure A complete two-dimensional transthoracic echocardiogram was performed (2D, M-mode, Doppler and color flow Doppler). Left Ventricle The left ventricle is normal in size. Ejection Fraction = 45-50%. Left ventricular systolic function is mildly reduced. There is mild global hypokinesis of the left ventricle. Right Ventricle The right ventricle is normal in size and function. There is a pacemaker lead in the right ventricle. Atria Normal left and right atrial size and function. Mitral Valve There is no mitral regurgitation noted. Tricuspid Valve There is trace tricuspid regurgitation. Right ventricular systolic pressure is normal. Aortic Valve No hemodynamically significant valvular aortic stenosis. No aortic regurgitation is present. Pulmonic Valve There is no pulmonic valvular regurgitation. Great Vessels The aortic root is normal size. Pericardium/Pleura There is no pericardial effusion. Interpretation Summary Left ventricular systolic function is mildly reduced. There is mild global hypokinesis of the left ventricle. The right ventricle is normal in size and function. There is a pacemaker lead in the right ventricle and atrium. There is trace tricuspid regurgitation. MD Sandro Kemp 06/01/2018 02:17 PM
[2018-06-01] MEDS ORDERED: PT OWN MED DRAWER 7, Y5N ONE (14:43)
--- NOTE | 2018-06-01 14:54 | CON.CARD ---
Consult Consult Specialty:: Cardiology Referred by:: Apryl Reason for Consultation:: hypotension, h/o CHF - History of Present Illness Chief Complaint: hypotension, CHF History of Present Illness: 67M h/o CAD s/p CABG 2005, chronic systolic HF s/p ICD ([employer]), COPD on chronic O2 2-3L, ESRD on HD, hypotension on midodrine, HTN, HLD p/w hypotension, palpitations, dyspnea. Recently admitted to [facility] for hip fx s/p ORIF c/b mesenteric ischemia, s/p ex lap, discharged on eliquis. ICD interrogated 05/12 as patient also had syncope, no events. Echo also was done during that admission which showed moderate global hypokinesis, report not avilable. He also was started on midodrine for hypotension and BP meds were stopped. Presently no chest pain, palps, dizziness, dyspnea. Eliquis and aspirin were stopped due to elevated INR. He used to see Dr. Shah at [place] for cardiology, has not been seen since 2012, recently saw Dr. Stover for device check in clinic 03/2018. Currently he complains of feeling tired, notes that he had a sudden episode of feeling very short of breath yesterday, anxiety , palpitations. - Past Medical History Cardio/Vascular: Yes: CAD Pulmonary: Yes: COPD, O2 Dependent - Alcohol/Substance Use Hx Alcohol Use: No - Smoking History Smoking history: Former smoker Have you smoked in the past 12 months: No If you are a former smoker, when did you quit?: 12yrs Home Medications - Allergies Allergies/Adverse Reactions: Allergies Allergy/AdvReac Type Severity Reaction Status Date / Time gluten Allergy Verified 05/31/18 19:44 No Known Drug Allergies Allergy Verified 05/31/18 19:44 - Home Medications Home Medications: Ambulatory Orders Allopurinol [Zyloprim -] 1 tab PO DAILY 03/17/18 Amiodarone HCl 1 tab PO DAILY 03/17/18 Aspirin [ASA -] 81 mg PO DAILY 03/17/18 Carvedilol 1 tab PO BID 03/17/18 Levothyroxine [Synthroid -] 1 tab PO DAILY 03/17/18 Pravastatin Sodium [Pravachol -] 1 tab PO DAILY 03/17/18 Zolpidem Tartrate [Ambien Cr] 1 tab PO HS 03/17/18 Acetaminophen [Tylenol] 650 mg PO DAILY PRN 05/31/18 Apixaban [Eliquis -] 2.5 mg PO BID 05/31/18 Calcium Carbonate [Calcium] 500 mg PO AC 05/31/18 Citalopram Hydrobromide [Citalopram HBr] 20 mg PO DAILY 05/31/18 Cyanocobalamin [Vitamin B12 -] 100 mcg PO DAILY 05/31/18 Folic Acid - 1 mg PO DAILY 05/31/18 Melatonin/Pyridoxine HCl (B6) [Melatonin 10 mg Tablet] 1 each PO HS 05/31/18 Midodrine HCl [Proamatine -] 5 mg PO TID 05/31/18 Vit B Comp No.3/Folic/C/Biotin [Krystina-Zane Rx Tablet] 1 each PO DAILY 05/31/18 Review of Systems - Review of Systems Constitutional: reports: No Symptoms Eyes: reports: No Symptoms HENT: reports: No Symptoms Neck: reports: No Symptoms Cardiovascular: reports: Edema Respiratory: reports: No Symptoms Gastrointestinal: reports: No Symptoms Genitourinary: reports: No Symptoms Musculoskeletal: reports: No Symptoms Integumentary: reports: No Symptoms Neurological: reports: No Symptoms Endocrine: reports: No Symptoms Hematology/Lymphatic: reports: No Symptoms Psychiatric: reports: No Symptoms Vital Signs: Vital Signs Temperature 98.2 F 06/01/18 06:20 Pulse Rate 70 06/01/18 13:39 Respiratory Rate 20 06/01/18 13:39 Blood Pressure 111/56 L 06/01/18 13:39 O2 Sat by Pulse Oximetry (%) 97 06/01/18 13:53 Constitutional: Yes: Well Nourished, No Distress, Calm Eyes: Yes: Conjunctiva Clear, EOM Intact HENT: Yes: Atraumatic, Normocephalic Neck: Yes: Supple, Trachea Midline Respiratory: Yes: Regular, Rales (bases bilaterally) Gastrointestinal: Yes: Normal Bowel Sounds, Soft Cardiovascular: Yes: Regular Rate and Rhythm JVD: No Carotid Bruit: No PMI: Non-Displaced Heart Sounds: Yes: S1, S2 Musculoskeletal: No: Back Pain Extremities: No: Cold Edema: Yes Edema: LLE: 1+, RLE: 1+ Peripheral Pulses WNL: Yes Peripheral Pulses: 2+ Left Doralis Pedis, 2+ Right Dorsalis Pedis Integumentary: No: Jaundice Neurological: Yes: Alert, Oriented Psychiatric: Yes: Alert, Oriented - Other Data Labs, Other Data: CBC, BMP 06/01/18 05:30 06/01/18 05:30 INR, PTT INR 5.13 (0.83-1.09) H* 05/31/18 17:56 Troponin, BNP 05/31/18 05/31/18 06/01/18 17:56 22:00 05:10 Troponin I 0.02 0.03 0.03 B-Natriuretic Peptide 06/01/18 07:55 Troponin I B-Natriuretic Peptide 88163.4 H Troponin, BNP 05/31/18 05/31/18 06/01/18 17:56 22:00 05:10 Troponin I 0.02 0.03 0.03 B-Natriuretic Peptide 06/01/18 07:55 Troponin I B-Natriuretic Peptide 39246.4 H Assessment/Plan echo 05/2018 nl LV size, mildly reduced function EF 45-50%, mild global hypokinesis of LV, nl RV, ppm lead in RV and RA, tr TR EKG: sinus, prolonged QTC, old septal infarct Shortness of breath, palpitations - trop neg x 3 - BNP elevated however unclear significance in patient with ESRD with known HF, however does have edema, rales on exam - due for HD, nephrology following - also with COPD hx, on chronic O2 - device interrogation pending, [employer] -admitted to tele acute on chronic systolic HF - mildly reduced EF on echo - appears volume up as above, however had partial HD session on Tuesday due to feeling anxious and is due today - volume management per renal - not on DELANO/BB due to low BP Prolonged QTc - avoid QT prolonging agents - maintain K >4, Mg >2 s/p ICD - outpatient follow up, Dr. Stover - recent device checks unremarkable per patient, pending device check here for recnet palps hypotension - continue midodrine ESRD on HD - renal consulted CAD, s/p CABG - cont statin - holding aspirin, elevated INR and anemia mesenteric ischemia - recent dx, s/p surgery during recent admission for hip fx, was started on eliquis - holding eliquis due to elevated INR and anemia anemia - manage per primary
--- NOTE | 2018-06-01 15:32 | PN ---
Teaching Attending Note Name of Resident: Myke Gilliland (nephrology) ATTENDING PHYSICIAN STATEMENT I saw and evaluated the patient. I reviewed the resident's note and discussed the case with the resident. I agree with the resident's findings and plan as documented. Renal Pt is a 67 year old male with pmhx of ESRD, CAD, CABG, COPD, CHF, SBP, DVT, and HLD who presents with shortness of breath. He said it began when he was in rehab. He wantd bipap as it usually helps him however they did not give him any. He later felt worsening shortness of breath and chest discomfort. He is now awake and alert. He is on a TTS HD schedule. He was last dialyzed on Tuesday. He is due for HD today. pmhx esrd cad chf hypothyroidism, aicd, copd hld htn gout pshx aicd cabg allergies gluten family hx denies social hx liven in de ros dyspnea on exertion Current Medications Generic Name Dose Route Start Last Admin Trade Name Freq PRN Reason Stop Dose Admin Amiodarone HCl 200 mg 06/01/18 11:21 Cordarone - PO DAILY JULIAN Calcium Carbonate 500 mg 06/01/18 16:30 Os-Merlin 500mg - PO TIDAC JULIAN Citalopram Hydrobromide 20 mg 06/01/18 13:15 Celexa - PO DAILY JULIAN Cyanocobalamin 100 mcg 06/01/18 13:15 Vitamin B12 - PO DAILY JULIAN Folic Acid 1 mg 06/01/18 13:15 Folic Acid - PO DAILY JULIAN Ceftriaxone Sodium 2 gm in 50 mls @ 100 mls/hr 06/01/18 13:45 Ceftriaxone 2 Gm-D5w Bag IVPB DAILY JULIAN Protocol Metronidazole 500 mg in 100 mls @ 100 mls/hr 06/01/18 13:45 Flagyl 500mg Premixed Ivpb - IVPB Q8H-IV JULIAN Levothyroxine Sodium 100 mcg 06/02/18 07:00 Synthroid - PO DAILY@0700 JULIAN Midodrine 5 mg 06/01/18 14:00 Proamatine - PO TID-MID JULIAN Multivit/Ca Carb/B Cmplx/FA/Prenat 1 tablet 06/01/18 13:30 Nephro-Zane - PO DAILY JULIAN Last Vital Signs Temp Pulse Resp BP Pulse Ox 98.2 F 70 20 111/56 L 97 06/01/18 06:20 06/01/18 13:39 06/01/18 13:39 06/01/18 13:39 06/01/18 13:53 Laboratory Tests 05/31/18 05/31/18 06/01/18 17:56 17:56 05:30 WBC 10.6 H Hgb 8.2 L 7.5 L Sodium Potassium BUN 45 H Creatinine 5.3 H B-Natriuretic Peptide Albumin 1.6 L 06/01/18 06/01/18 05:30 07:55 WBC Hgb Sodium 138 Potassium 4.9 BUN 49 H Creatinine 5.5 H B-Natriuretic Peptide 81438.4 H Albumin 1.5 L Laboratory Tests 05/31/18 05/31/18 06/01/18 17:56 22:00 05:10 Troponin I 0.02 0.03 0.03 cardio s1s2 pulm scattered rhonchi GI surgical scars, bs positive ext trace edema neuro awake skin neg rash ext pos pulses psych calm Impression 1. ESRD 2. CAD 3. CABG 4. COPD 5. CHF 6. SBP 7. DVT 8. hx mesinteric ischemia 9. hypothyroidism 10. gout 11. hld 12. pleural effusion Plan - will arrange for HD today - monitor bp - cardio eval, trop neg - cont oxygen and monitor pulse ox - pt admitted to tele - albumin with HD - midodrine for hypotension - will follow Dr Jones
[2018-06-01] MEDS ORDERED: SODIUM CHLORIDE 250 ML IV PRN (15:34)
--- NOTE | 2018-06-01 16:20 | CON.GI ---
Consult Consult Specialty:: GI Referred by:: Hospitalist Service Reason for Consultation:: Ascites - History of Present Illness Chief Complaint: "I had chest pain, was anxious and lost my breath" History of Present Illness: 67M admitted from HD decondary to chest pain, SOB and anxiety. he does not received care at [facility] and was residing in the . There is a discharge summary from [facility]: he was admitted there 05/23/18 and discharged 05/29/18. He recently had right ORIF secondary to fall/syncope at [facility] 04/26/18 during previous admission. post operatively his course was complicated by mesenteric ischemia, s/p Ex-Lap with resection of jejnum/ileum and including extended right hemicolectomy. Describes him receiving 2 U PRBC transfusion. Discharged from [facility] then readmitted 05/23/18 secondary to SBH secondary to nausea, SOB during HD. Diarrhea was noted since bowel resection. During 05/23-05/29 admission: noted to have lactic acidosis, echo revealed mod global hypokinesis, CTA of the abdomen/pelvis revealed ascites. He underwent 700cc paracentesis. seropurulent fluid described. cultures + for Kleb Oxytoca. Started on ceftriaxone, with hospital course complicated by hypotension. Started on midodrine and BP meds were D/C's. Diagnosed with SBP and CHF exacerbation per discharge summary. Discharge instruction recommended he take cipro twice a day / flagyl for 7 days. The CTA of A/P report from 05/23/18 revealed a prior hemicolectomy, dilated loops of small bowel, large volume of ascites with scattered bubbles of free air in the LUQ, homogeneous liver that was not enlarged, normal appearing spleen, non specific segmental small bowel wall thickening. ? if related to surgery vs. bowel leak. CTA of the chest 05/23/18: Report was provided: small rt. pleural effusion, filling defect in SVC around HD catheter, partially occluded infra azygous/ supra azygous SVC, partially occluding filling defect in the lt. brachiocephalic vein, innumerable chest wall and mediastinal collateral 05/24/[address] scan of the A/P with PO and IV contrast to eval for the previously noted air bubbles in ascites: small b/l pleural effusions, no extravasation of contrast, mod amount of fluid in abdomen with thin rim of peripheral enhancement and multiple foci of free air. ? normal peritoneal enhancement with ? resolving post surgical airvs. infectious fluid collection. 05/24/18 US of abdomen at time of paracentesis: innumerable loculations and septations: paracentesis performed in "outer right abdomen". It does appear that 60 cc was removed for labarotory analysis. He currently denies any abdominal pain There has been no overt GI bleeding INR was 5 on admission, however, he was not on coumadin. Was on Eliquis - History Source History Provided By: Patient, Medical Record - Past Medical History Cardio/Vascular: Yes: CAD, CHF, Hyperlipdemia Pulmonary: Yes: COPD, O2 Dependent Gastrointestinal: Yes: Other (mesenteric ischemia) Renal/: Yes: Renal Failure (ESRD on HD) Rheumatology: Yes: Gout Endocrine: Yes: Hypothyroidism - Past Surgical History Past Surgical History: Yes: AV Fistula/Graft Additional Surgical History: Small bowel resection / extended right hemicomectomy - Alcohol/Substance Use Hx Alcohol Use: No - Smoking History Smoking history: Former smoker Have you smoked in the past 12 months: No If you are a former smoker, when did you quit?: 12yrs - Social History Usual Living Arrangement: Jail ADL: Support Services Place of : [facility] History of Recent Travel: No Home Medications - Allergies Allergies/Adverse Reactions: Allergies Allergy/AdvReac Type Severity Reaction Status Date / Time gluten Allergy Verified 05/31/18 19:44 No Known Drug Allergies Allergy Verified 05/31/18 19:44 - Home Medications Home Medications: Ambulatory Orders Allopurinol [Zyloprim -] 1 tab PO DAILY 03/17/18 Amiodarone HCl 1 tab PO DAILY 03/17/18 Aspirin [ASA -] 81 mg PO DAILY 03/17/18 Carvedilol 1 tab PO BID 03/17/18 Levothyroxine [Synthroid -] 1 tab PO DAILY 03/17/18 Pravastatin Sodium [Pravachol -] 1 tab PO DAILY 03/17/18 Zolpidem Tartrate [Ambien Cr] 1 tab PO HS 03/17/18 Acetaminophen [Tylenol] 650 mg PO DAILY PRN 05/31/18 Apixaban [Eliquis -] 2.5 mg PO BID 05/31/18 Calcium Carbonate [Calcium] 500 mg PO AC 05/31/18 Citalopram Hydrobromide [Citalopram HBr] 20 mg PO DAILY 05/31/18 Cyanocobalamin [Vitamin B12 -] 100 mcg PO DAILY 05/31/18 Folic Acid - 1 mg PO DAILY 05/31/18 Melatonin/Pyridoxine HCl (B6) [Melatonin 10 mg Tablet] 1 each PO HS 05/31/18 Midodrine HCl [Proamatine -] 5 mg PO TID 05/31/18 Vit B Comp No.3/Folic/C/Biotin [Krystina-Zane Rx Tablet] 1 each PO DAILY 05/31/18 Family Disease History - Family Disease History Other Family History: No family history of colorectal cancer or other GI malignancy. Review of Systems - Review of Systems Constitutional: denies: Chills, Fever Cardiovascular: reports: Chest Pain, Palpitations, Shortness of Breath Gastrointestinal: reports: Diarrhea. denies: Abdominal Pain, Melena, Rectal Bleeding, Vomiting, Vomiting Blood Physical Exam-GI Vital Signs: Vital Signs Temperature 98.2 F 06/01/18 06:20 Pulse Rate 70 06/01/18 13:39 Respiratory Rate 20 06/01/18 13:39 Blood Pressure 111/56 L 06/01/18 13:39 O2 Sat by Pulse Oximetry (%) 97 06/01/18 13:53 Constitutional: Yes: Calm Eyes: No: Sclera Icterus Cardiovascular: Yes: Regular Rate and Rhythm. No: Murmur Respiratory: Yes: CTA Bilaterally Gastrointestinal Inspection: Yes: Distention (mildley protuberant), Scars ( mideline surgical scar with [place]) ...Auscultate: Yes: Normoactive Bowel Sounds ...Palpate: No: Hepatomegaly, Splenomegaly, Tenderness ...Rectal Exam: Yes: Other (No external lesions, no masses, light espino stool) Edema: Yes Edema: RLE: 1+ Neurological: Yes: Alert Labs: CBC, BMP 06/01/18 05:30 06/01/18 05:30 INR, PTT INR 5.13 (0.83-1.09) H* 05/31/18 17:56 Hepatic Panel Total Bilirubin 0.4 mg/dL (0.2-1) 06/01/18 05:30 AST 20 U/L (15-37) 06/01/18 05:30 ALT 18 U/L (13-61) 06/01/18 05:30 Alkaline Phosphatase 149 U/L (45-117) H 06/01/18 05:30 Albumin 1.5 g/dl (3.4-5.0) L 06/01/18 05:30 Problem List - Problems (1) Ascites Assessment/Plan: Given previous history of recent bowel ischemia and surgery without a prior history of liver disease, it would be hard to chalk this up to spontaneous bacterial peritonitis secondary to preexisting liver disease. I question if this was a secondary peritonitis secondary secondary to the above Would advise obtaining fluid analysis and official peritoneal fluid culture/ sentivity results to make sure this was not a polymicrobial infection. fluid analysis will also help clarify etiology of the ascites Repeat CT scan of the abdomen and pelvis with IV contrast ID consult to help direct antibiotic management Will likely need repeat diagnostic paracentesis depending on CT scan results when coagulopathy permits Anemic: No overt GI bleeding. Guaiac negative oin specimen sent from ER and nor overt blooc or melena noted on my digital rectal exam. Likely multifactorial. Anemia work-up per primary team. Considere heme evaluation coagulation derangement, anemia and thromboses. Code(s): R18.8 - OTHER ASCITES
[2018-06-01] MEDS ORDERED: CEFTRIAXONE 2 GM-D5W BAG 2 GM/50 ML BAG IVPB SCH (17:15)
--- NOTE | 2018-06-01 17:16 | CON.ID ---
Consult Consult Specialty:: infectious diseases Reason for Consultation:: sepsis,ascites - History of Present Illness Chief Complaint: abd pain ,distension History of Present Illness: 67M admitted from HD decondary to chest pain, SOB and anxiety. he does not received care at [facility] and was residing in the . There is a discharge summary from [facility]: he was admitted there 05/23/18 and discharged 05/29/18. He recently had right ORIF secondary to fall/syncope at [facility] 04/26/18 during previous admission. post operatively his course was complicated by mesenteric ischemia, s/p Ex-Lap with resection of jejnum/ileum and including extended right hemicolectomy. Describes him receiving 2 U PRBC transfusion. Discharged from [facility] then readmitted 05/23/18 secondary to SB secondary to nausea, SOB during HD. Diarrhea was noted since bowel resection. During 05/23-05/29 admission: noted to have lactic acidosis, echo revealed mod global hypokinesis, CTA of the abdomen/pelvis revealed ascites. He underwent 700cc paracentesis. seropurulent fluid described. cultures + for Kleb Oxytoca. Started on ceftriaxone, with hospital course complicated by hypotension. Started on midodrine and BP meds were D/C's. Diagnosed with SBP and CHF exacerbation per discharge summary. Discharge instruction recommended he take cipro twice a day / flagyl for 7 days. patient now came here with the above complaint - History Source History Provided By: Patient, Family Member Limitations to Obtaining History: No Limitations - Past Medical History Cardio/Vascular: Yes: CAD, CHF, Hyperlipdemia Pulmonary: Yes: COPD, O2 Dependent Gastrointestinal: Yes: Other (mesenteric ischemia) Renal/: Yes: Renal Failure (ESRD on HD) Rheumatology: Yes: Gout Endocrine: Yes: Hypothyroidism - Past Surgical History Past Surgical History: Yes: AV Fistula/Graft Additional Surgical History: Small bowel resection / extended right hemicomectomy - Alcohol/Substance Use Hx Alcohol Use: No - Smoking History Smoking history: Former smoker Have you smoked in the past 12 months: No If you are a former smoker, when did you quit?: 12yrs - Social History Usual Living Arrangement: Skilled Nursing ADL: Support Services History of Recent Travel: No Home Medications - Allergies Allergies/Adverse Reactions: Allergies Allergy/AdvReac Type Severity Reaction Status Date / Time gluten Allergy Verified 05/31/18 19:44 No Known Drug Allergies Allergy Verified 05/31/18 19:44 - Home Medications Home Medications: Ambulatory Orders RX: Amiodarone HCl 1 tab PO DAILY 03/17/18 RX: Levothyroxine [Synthroid -] 1 tab PO DAILY 03/17/18 RX: Pravastatin Sodium [Pravachol -] 1 tab PO DAILY 03/17/18 RX: Acetaminophen [Tylenol] 650 mg PO DAILY PRN 05/31/18 RX: Calcium Carbonate [Calcium] 500 mg PO AC 05/31/18 RX: Citalopram Hydrobromide [Citalopram HBr] 20 mg PO DAILY 05/31/18 RX: Cyanocobalamin [Vitamin B12 -] 100 mcg PO DAILY 05/31/18 RX: Folic Acid - 1 mg PO DAILY 05/31/18 RX: Melatonin/Pyridoxine HCl (B6) [Melatonin Tr 10 mg Tablet] 1 each PO HS 05/31 RX: Midodrine HCl [Proamatine -] 5 mg PO TID 05/31/18 RX: Vit B Comp No.3/Folic/C/Biotin [Krystina-Zane Rx Tablet] 1 each PO DAILY RX: Acetaminophen [Tylenol .Regular Strength -] 650 mg PO Q4H PRN tablet RX: Buspirone HCl [Buspar -] 10 mg PO TID tablet 06/15/18 RX: Collagenase Clostridium Hist. [Santyl -] 1 applic TP DAILY tube 06/15/18 RX: Cyclobenzaprine HCl 2.5 mg PO Q12H PRN tablet 06/15/18 RX: Lidocaine 5% Patch [Lidoderm -] 1 patch TP DAILY patch 06/15/18 RX: Lidocaine Patch Removal [Lidoderm Patch Removal] 1 each MC DAILY@2200 each 06/15/18 RX: Piperacillin/Tazob 2.25 gm [Zosyn -] 2.25 gm IVPB Q8H-IV vial 06/15/18 RX: Ranitidine [Zantac -] 150 mg PO BID tablet 06/15/18 RX: Heparin - 1,000 unit IVPUSH PRN PRN vial 06/21/18 RX: Heparin - 5,000 unit IVPUSH PRN PRN vial 06/21/18 RX: Heparin - 25,000 unit IV TITR vial 06/21/18 Family Disease History - Family Disease History Other Family History: No family history of colorectal cancer or other GI malignancy. Review of Systems - Review of Systems Constitutional: reports: Weakness Eyes: reports: No Symptoms HENT: reports: No Symptoms Neck: reports: No Symptoms Cardiovascular: reports: No Symptoms Respiratory: reports: SOB Gastrointestinal: reports: Abdominal Pain, Other Genitourinary: reports: No Symptoms Musculoskeletal: reports: No Symptoms Integumentary: reports: Wound Neurological: reports: No Symptoms Endocrine: reports: No Symptoms Hematology/Lymphatic: reports: No Symptoms Psychiatric: reports: No Symptoms Physical Exam Vital Signs: Vital Signs Temperature 97.9 F 06/01/18 16:13 Pulse Rate 73 06/01/18 16:13 Respiratory Rate 20 06/01/18 16:13 Blood Pressure 107/56 L 06/01/18 16:13 O2 Sat by Pulse Oximetry (%) 97 06/01/18 16:59 Constitutional: Yes: No Distress, Calm Eyes: Yes: Conjunctiva Clear Cardiovascular: Yes: Regular Rate and Rhythm Respiratory: Yes: Regular, Poor Air Entry (bases) Gastrointestinal: Yes: Normal Bowel Sounds, Soft, Ascites Musculoskeletal: Yes: WNL Extremities: Yes: Other Wound/Incision: Yes: Dressing Dry and Intact Neurological: Yes: Alert, Oriented Psychiatric: Yes: Alert, Oriented Labs: CBC, BMP 06/01/18 05:30 06/01/18 05:30 Imaging - Results Chest X-ray: Report Reviewed, Image Reviewed Ultrasound: Report Reviewed, Image Reviewed Assessment/Plan ASSESSMENT AND PLAN: (1) Hypotension Code(s): I95.9 - HYPOTENSION, UNSPECIFIED (2) ESRD (end stage renal disease) Code(s): N18.6 - END STAGE RENAL DISEASE (3) Ascites Code(s): R18.8 - OTHER ASCITES (4) Supratherapeutic INR Code(s): R79.1 - ABNORMAL COAGULATION PROFILE (5) CAD (coronary artery disease) Code(s): I25.10 - ATHSCL HEART DISEASE OF [place] CORONARY ARTERY W/O ANG PCTRS (6) CHF (congestive heart failure) Code(s): I50.9 - HEART FAILURE, UNSPECIFIED Qualifiers: Heart failure chronicity: acute on chronic (7) Hypothyroid Code(s): E03.9 - HYPOTHYROIDISM, UNSPECIFIED (8) SBP (secondary bacterial peritonitis) Code(s): K65.2 - SPONTANEOUS BACTERIAL PERITONITIS (9) Anxiety -consult psychiatry 10 b/l heel ulcer plan will start patient on zosyn patient will need tapping surgery to see the patient rest continue current mgmt once we have all the results then will decide further
[2018-06-01] MEDS ORDERED: EPOETIN ALFA 3,000 UNIT/1 ML ML IVPUSH ONE (18:00)
[2018-06-01] MEDS: ALBUMIN HUMAN 25% 12.5 GM/50 ML VIAL IVPB SCH ×3 (21:04→21:09)
[2018-06-02] MEDS ORDERED: MELATONIN 5 MG TABLETS PO ONE (01:39)
[2018-06-02 04:17] LABS: HEP.C VIRUS AB 0.1 s/co ratio (0.0-0.9); HEPATITIS B CORE ANTIBODY,IGM Negative (Negative)
[2018-06-02 06:45] LABS: HEMATOCRIT 22.9 % (35.4-49); HEMOGLOBIN 7.1 GM/dL (11.7-16.9); MCH 27.8 pg (25.7-33.7); MCHC 30.8 g/dl (32.0-35.9); MEAN CELL VOLUME 90.2 fl (80-96); MEAN PLT VOLUME 7.7 fl (7.5-11.1); PLATELET COUNT 206 K/MM3 (134-434); RBC 2.54 M/mm3 (4.00-5.60); RDW 18.5 % (11.9-15.9); WHITE BLOOD COUNT 8.3 K/mm3 (4.0-10.0)
[2018-06-02] MEDS: CALCIUM (OYSTER SHELL) 500 MG TABLET (FP) PO SCH ×3 (07:00→16:43)
[2018-06-02 07:01] LABS: INR 3.53 (0.83-1.09); PROTHROMBIN TIME (PATIENT) 42.2 SEC (9.7-13.0)
[2018-06-02] MEDS: LEVOTHYROXINE NA 100 MCG TABLET (FP) PO SCH (07:01)
[2018-06-02 07:37] LABS: ALBUMIN 2.1 g/dl (3.4-5.0); ALK PHOS 129 U/L (45-117); ANION GAP 8 MMOL/L (8-16); BILIRUBIN,TOTAL 0.4 mg/dL (0.2-1); BLOOD UREA NITROGEN 28 mg/dL (7-18); CALCIUM 7.2 mg/dL (8.5-10.1); CHLORIDE 103 mmol/L (98-107); CO2 30 mmol/L (21-32); CREATININE 3.6 mg/dL (0.55-1.3); GLUCOSE,RANDOM 145 mg/dL (74-106); MAGNESIUM 2.1 mg/dL (1.8-2.4); PHOSPHOROUS 2.4 mg/dL (2.5-4.9); POTASSIUM 3.9 mmol/L (3.5-5.1); SGOT/AST 17 U/L (15-37); SGPT/ALT 15 U/L (13-61); SODIUM 141 mmol/L (136-145); TOT PROT 4.7 g/dl (6.4-8.2)
[2018-06-02] MEDS: COLLAGENASE CLOSTRIDIUM HIST. 30 GRAMS TUBE TP SCH ×2 (07:44→09:40)
[2018-06-02] MEDS: FOLIC ACID 1 MG TABLET (FP) PO SCH ×2 (07:52→09:34)
[2018-06-02] MEDS: VITAMIN B COMP W-C 1 EA TABLET PO SCH ×2 (07:52→09:34)
[2018-06-02] MEDS: CYANOCOBALAMIN (VITAMIN B-12) 100 MCG TABLET PO SCH ×2 (07:52→09:34)
[2018-06-02] MEDS: CITALOPRAM HYDROBROMIDE 20 MG TABLET (FP) PO SCH ×2 (07:52→09:34)
[2018-06-02] MEDS: MIDODRINE HCL 5 MG TABLET PO SCH ×4 (07:53→17:24)
[2018-06-02] MEDS ORDERED: PT OWN MED DRAWER 7, Y5N ONE ×2 (09:07→13:57)
[2018-06-02] MEDS ORDERED: DEXTROSE 5%-WATER 100 ML IVPB ONE (09:26)
[2018-06-02] MEDS: AMIODARONE HCL 200 MG TABLET (FP) PO SCH (09:34)
[2018-06-02] MEDS: ACETAMINOPHEN 325 MG TABLET (FP) PO PRN (09:35)
[2018-06-02] MEDS ORDERED: CEFTRIAXONE 2 GM in DEXTROSE 5%-WATER 100 ML IVPB SCH (10:00)
--- NOTE | 2018-06-02 11:49 | PN ---
Physical Exam: SUBJECTIVE: Patient seen and examined at bedside. Endorses poor sleep overnight. Underwent HD yesterday, 1 KG removed. OBJECTIVE: Vital Signs Period Temp Pulse Resp BP Sys/Emery Pulse Ox Last 24 Hr 97.3 F-98.4 F 70-90 18-20 99-125/56-94 97-97 GENERAL: NAD. AAOx3 HEAD: Normal with no signs of trauma. Nodular lesion above left eyelid. EYES: EOMI, Conjunctiva clear NECK: Trachea midline, full range of motion, supple. LUNGS: Crackles at bases HEART: RRR S1S2 ABDOMEN: Nontender, +ascited. Surgical scar 2/2 ex-lap. No dilated veins appreciated. EXTREMITIES: Right lower extremity visibly more swollen than left. 1+ pitting edema b/l. Ulcer left heel stage II. Laboratory Results - last 24 hr 06/01/18 06/01/18 06/01/18 07:55 07:55 12:30 WBC RBC Hgb Hct MCV MCH MCHC RDW Plt Count MPV PT with INR INR PTT (Actin FS) Sodium Potassium Chloride Carbon Dioxide Anion Gap BUN Creatinine Creat Clearance w eGFR Random Glucose Calcium Phosphorus Magnesium Total Bilirubin AST ALT Alkaline Phosphatase Total Protein Albumin TSH Hepatitis A IgM Ab Negative Hep Bs Antigen Negative Hep B Core IgM Ab Negative Negative Hepatitis C Antibody 0.1 HIV Genotype Non reactive Influenza A (Rapid) Negative Influenza B (Rapid) Negative 06/02/18 06/02/18 06/02/18 05:30 05:30 05:30 WBC 8.3 RBC 2.54 L Hgb 7.1 L Hct 22.9 L MCV 90.2 MCH 27.8 MCHC 30.8 L RDW 18.5 H Plt Count 206 MPV 7.7 PT with INR 42.20 H INR 3.53 H PTT (Actin FS) Sodium 141 Potassium 3.9 Chloride 103 Carbon Dioxide 30 Anion Gap 8 BUN 28 H Creatinine 3.6 H Creat Clearance w eGFR 16.95 Random Glucose 145 H Calcium 7.2 L Phosphorus 2.4 L Magnesium 2.1 Total Bilirubin 0.4 AST 17 ALT 15 Alkaline Phosphatase 129 H Total Protein 4.7 L Albumin 2.1 L TSH 19.40 H Hepatitis A IgM Ab Hep Bs Antigen Hep B Core IgM Ab Hepatitis C Antibody HIV Genotype Influenza A (Rapid) Influenza B (Rapid) 06/02/18 05:30 WBC RBC Hgb Hct MCV MCH MCHC RDW Plt Count MPV PT with INR INR PTT (Actin FS) 36.4 Sodium Potassium Chloride Carbon Dioxide Anion Gap BUN Creatinine Creat Clearance w eGFR Random Glucose Calcium Phosphorus Magnesium Total Bilirubin AST ALT Alkaline Phosphatase Total Protein Albumin TSH Hepatitis A IgM Ab Hep Bs Antigen Hep B Core IgM Ab Hepatitis C Antibody HIV Genotype Influenza A (Rapid) Influenza B (Rapid) Active Medications Generic Name Dose Route Start Last Admin Trade Name Freq PRN Reason Stop Dose Admin Acetaminophen 650 mg 06/02/18 08:58 06/02/18 09:35 Tylenol - PO 650 mg Q4H PRN Administration HEADACHE Amiodarone HCl 200 mg 06/01/18 11:21 06/02/18 09:34 Cordarone - PO 200 mg DAILY JULIAN Administration Calcium Carbonate 500 mg 06/01/18 16:30 06/02/18 07:00 Os-Merlin 500mg - PO 500 mg TIDAC JULIAN Administration Citalopram Hydrobromide 20 mg 06/01/18 13:15 06/02/18 09:34 Celexa - PO 20 mg DAILY JULIAN Administration Collagenase 1 applic 06/01/18 17:15 06/02/18 09:40 Santyl - TP 1 applic DAILY JULIAN Administration Protocol Cyanocobalamin 100 mcg 06/01/18 13:15 06/02/18 09:34 Vitamin B12 - PO 100 mcg DAILY JULIAN Administration Folic Acid 1 mg 06/01/18 13:15 06/02/18 09:34 Folic Acid - PO 1 mg DAILY JULIAN Administration Metronidazole 500 mg in 100 mls @ 100 mls/hr 06/01/18 18:00 06/02/18 09:34 Flagyl 500mg Premixed Ivpb - IVPB 100 mls/hr Q8H-IV JULIAN Administration Sodium Chloride 250 mls @ 3,000 mls/hr 06/01/18 15:34 Normal Saline - IV 06/02/18 15:34 PRN PRN Hypotension during Dialysis Ceftriaxone Sodium 2 gm/ 100 mls @ 200 mls/hr 06/02/18 10:00 06/02/18 09:34 Dextrose IVPB 200 mls/hr DAILY JULIAN Administration Protocol Levothyroxine Sodium 100 mcg 06/02/18 07:00 06/02/18 07:01 Synthroid - PO 100 mcg DAILY@0700 JULIAN Administration Midodrine 5 mg 06/01/18 14:00 06/02/18 09:34 Proamatine - PO 5 mg TID-MID JULIAN Administration Multivit/Ca Carb/B Cmplx/FA/Prenat 1 tablet 06/01/18 13:30 06/02/18 09:34 Nephro-Zane - PO 1 tablet DAILY JULIAN Administration ASSESSMENT/PLAN: Pt is a 67 y/o gentleman with a significant past medical history of CAD s/p CABG , Defibrillator ([employer]), COPD (on 2-3L Home O2), ESRD (On HD // via Right Tunnel Cath), CHF, R-intertrochanteric hip fx s/p ORIF complicated by mesenteric ischemia (04/2018) who presented to [facility] from [facility] with hypotension and palpitations/SOB while in OT. # ESRD -Underwent HD yesterday. 1 KG removed. No acute events. 3 Hrs duration. -Albumin 12.5 gm x 4 doses w/ HD. -HD tomorrow. -Midodrine for hypotension -Epogen for anemia -CTAP--> Ascites large amount seen in abdomen and pelvis associated w/ mild smooth diffuse peritoneal thickening. Surgery consulted. No Fluids Monitor Electrolytes Sodium Controlled Diet DVT ppx: INR Supratherapeutic. Not on AC at this juncture Dispo: Tele Visit type - Emergency Visit Emergency Visit: Yes ED Registration Date: 05/31/18 Care time: The patient presented to the Emergency Department on the above date and was hospitalized for further evaluation of their emergent condition. - New Patient This patient is new to me today: No - Critical Care Critical Care patient: No - Discharge Referral Referred to [facility] Med P.C.: No
--- NOTE | 2018-06-02 12:18 | PN ---
Teaching Attending Note Name of Resident: Myke Gilliland (Nephrology) ATTENDING PHYSICIAN STATEMENT I saw and evaluated the patient. I reviewed the resident's note and discussed the case with the resident. I agree with the resident's findings and plan as documented. Renal Pt seen and examined at bedside. He tolerated HD last night. He feels that his breathing is much improved. Current Medications Generic Name Dose Route Start Last Admin Trade Name Freq PRN Reason Stop Dose Admin Acetaminophen 650 mg 06/02/18 08:58 06/02/18 09:35 Tylenol - PO 650 mg Q4H PRN Administration HEADACHE Amiodarone HCl 200 mg 06/01/18 11:21 06/02/18 09:34 Cordarone - PO 200 mg DAILY JULIAN Administration Calcium Carbonate 500 mg 06/01/18 16:30 06/02/18 12:06 Os-Merlin 500mg - PO 500 mg TIDAC JULIAN Administration Citalopram Hydrobromide 20 mg 06/01/18 13:15 06/02/18 09:34 Celexa - PO 20 mg DAILY JULIAN Administration Collagenase 1 applic 06/01/18 17:15 06/02/18 09:40 Santyl - TP 1 applic DAILY JULIAN Administration Protocol Cyanocobalamin 100 mcg 06/01/18 13:15 06/02/18 09:34 Vitamin B12 - PO 100 mcg DAILY JULIAN Administration Folic Acid 1 mg 06/01/18 13:15 06/02/18 09:34 Folic Acid - PO 1 mg DAILY JULIAN Administration Metronidazole 500 mg in 100 mls @ 100 mls/hr 06/01/18 18:00 06/02/18 09:34 Flagyl 500mg Premixed Ivpb - IVPB 100 mls/hr Q8H-IV JULIAN Administration Sodium Chloride 250 mls @ 3,000 mls/hr 06/01/18 15:34 Normal Saline - IV 06/02/18 15:34 PRN PRN Hypotension during Dialysis Ceftriaxone Sodium 2 gm/ 100 mls @ 200 mls/hr 06/02/18 10:00 06/02/18 09:34 Dextrose IVPB 200 mls/hr DAILY JULIAN Administration Protocol Levothyroxine Sodium 100 mcg 06/02/18 07:00 06/02/18 07:01 Synthroid - PO 100 mcg DAILY@0700 JULIAN Administration Midodrine 5 mg 06/01/18 14:00 06/02/18 09:34 Proamatine - PO 5 mg TID-MID JULIAN Administration Multivit/Ca Carb/B Cmplx/FA/Prenat 1 tablet 06/01/18 13:30 06/02/18 09:34 Nephro-Zane - PO 1 tablet DAILY JULIAN Administration Last Vital Signs Temp Pulse Resp BP Pulse Ox 97.3 F L 82 18 125/94 100 06/02/18 06:20 06/02/18 06:20 06/02/18 06:20 06/02/18 06:20 06/02/18 09:00 Laboratory Tests 06/02/18 05:30 Potassium 3.9 Creatinine 3.6 H cardio s1s2 pulm scattered rhonchi GI surgical scars, bs positive ext trace edema neuro awake skin neg rash ext pos pulses psych calm Impression 1. ESRD 2. CAD 3. CABG 4. COPD 5. CHF 6. SBP 7. DVT 8. hx mesinteric ischemia 9. hypothyroidism 10. gout 11. hld 12. pleural effusion 13. anemia Plan - will arrange for HD in am - surgery follow up for ct findings - pt feels that breathing is improved today - albumin with HD - midodrine for hypotension, bp relatively stable - epogen for anemia - monitor hg - will follow Dr Jones
--- NOTE | 2018-06-02 12:39 | PN ---
Progress Note (short form) - Note Progress Note: s: no cp sob palps dizzy o: Vital Signs Period Temp Pulse Resp BP Sys/Emery Pulse Ox Last 24 Hr 97.3 F-98.4 F 70-90 18-20 99-125/56-94 97-100 Constitutional: Yes: Well Nourished, No Distress, Calm Eyes: Yes: Conjunctiva Clear, EOM Intact HENT: Yes: Atraumatic, Normocephalic Neck: Yes: Supple, Trachea Midline Respiratory: Yes: Regular, Rales (bases bilaterally) Gastrointestinal: Yes: Normal Bowel Sounds, Soft Cardiovascular: Yes: Regular Rate and Rhythm JVD: No Carotid Bruit: No PMI: Non-Displaced Heart Sounds: Yes: S1, S2 Musculoskeletal: No: Back Pain Extremities: No: Cold Edema: trace Peripheral Pulses: 2+ Left Doralis Pedis, 2+ Right Dorsalis Pedis Integumentary: No: Jaundice Neurological: Yes: Alert, Oriented - Other Data Labs, Other Data: CBC, BMP 06/02/18 05:30 06/02/18 05:30 Current Medications Generic Name Dose Route Start Last Admin Trade Name Freq PRN Reason Stop Dose Admin Acetaminophen 650 mg 06/02/18 08:58 06/02/18 09:35 Tylenol - PO 650 mg Q4H PRN Administration HEADACHE Albumin Human 12.5 gm 06/03/18 12:30 Albumin Human 25% IVPB 06/03/18 14:01 Q30M JULIAN Amiodarone HCl 200 mg 06/01/18 11:21 06/02/18 09:34 Cordarone - PO 200 mg DAILY JULIAN Administration Calcium Carbonate 500 mg 06/01/18 16:30 06/02/18 12:06 Os-Merlin 500mg - PO 500 mg TIDAC JULIAN Administration Citalopram Hydrobromide 20 mg 06/01/18 13:15 06/02/18 09:34 Celexa - PO 20 mg DAILY JULIAN Administration Collagenase 1 applic 06/01/18 17:15 06/02/18 09:40 Santyl - TP 1 applic DAILY JULIAN Administration Protocol Cyanocobalamin 100 mcg 06/01/18 13:15 06/02/18 09:34 Vitamin B12 - PO 100 mcg DAILY JULIAN Administration Epoetin Josemanuel 10,000 unit 06/03/18 12:18 Procrit - IVPUSH 06/03/18 12:19 ONCE ONE Folic Acid 1 mg 06/01/18 13:15 06/02/18 09:34 Folic Acid - PO 1 mg DAILY JULIAN Administration Metronidazole 500 mg in 100 mls @ 100 mls/hr 06/01/18 18:00 06/02/18 09:34 Flagyl 500mg Premixed Ivpb - IVPB 100 mls/hr Q8H-IV JULIAN Administration Sodium Chloride 250 mls @ 3,000 mls/hr 06/01/18 15:34 Normal Saline - IV 06/02/18 15:34 PRN PRN Hypotension during Dialysis Ceftriaxone Sodium 2 gm/ 100 mls @ 200 mls/hr 06/02/18 10:00 06/02/18 09:34 Dextrose IVPB 200 mls/hr DAILY JULIAN Administration Protocol Sodium Chloride 250 mls @ 3,000 mls/hr 06/02/18 12:18 Normal Saline - IV 06/03/18 12:18 PRN PRN Hypotension during Dialysis Levothyroxine Sodium 100 mcg 06/02/18 07:00 06/02/18 07:01 Synthroid - PO 100 mcg DAILY@0700 JULIAN Administration Midodrine 5 mg 06/01/18 14:00 06/02/18 09:34 Proamatine - PO 5 mg TID-MID JULIAN Administration Multivit/Ca Carb/B Cmplx/FA/Prenat 1 tablet 06/01/18 13:30 06/02/18 09:34 Nephro-Zane - PO 1 tablet DAILY JULIAN Administration Assessment/Plan echo 05/2018 nl LV size, mildly reduced function EF 45-50%, mild global hypokinesis of LV, nl RV, ppm lead in RV and RA, tr TR EKG: sinus, prolonged QTC, old septal infarct tele: sr Shortness of breath, palpitations - trop neg x 3 - BNP elevated however unclear significance in patient with ESRD with known HF, however does have edema, rales on exam - due for HD, nephrology following - also with COPD hx, on chronic O2 - device interrogation pending, [employer] -after hd pt feeling better, no sob acute on chronic systolic HF - mildly reduced EF on echo - appears volume up as above, however had partial HD session on Tuesday due to feeling anxious and is due today - volume management per renal-->pt feeling better after hd - not on DELANO/BB due to low BP Prolonged QTc - avoid QT prolonging agents - maintain K >4, Mg >2 s/p ICD - outpatient follow up, Dr. Stover - recent device checks unremarkable per patient, pending device check here for recent palps hypotension - continue midodrine ESRD on HD - renal consulted CAD, s/p CABG - cont statin - holding aspirin, elevated INR and anemia mesenteric ischemia - recent dx, s/p surgery during recent admission for hip fx, was started on eliquis - holding eliquis due to elevated INR and anemia anemia - manage per primary
--- NOTE | 2018-06-02 14:06 | PN ---
GI Progress Note Subjective: No acute events No abdominal pain States feeling well Discussed things with Mr. Schaeffer a bit more. He denies prior history of liver disease, alcohol abuse. Does not recall ever being told of having ascites prior to the hospitalization at [facility] at which time paracentesis was performed. - Objective Vital Signs: Vital Signs Temperature 97.9 F 06/02/18 11:00 Pulse Rate 91 H 06/02/18 11:00 Respiratory Rate 18 06/02/18 11:00 Blood Pressure 113/59 L 06/02/18 11:00 O2 Sat by Pulse Oximetry (%) 100 06/02/18 09:00 Constitutional: Calm Eyes: No: Sclera Icterus Cardiovascular: Yes: Regular Rate and Rhythm Respiratory: Yes: Diminished (at bases biaterally) Gastrointestinal Inspection: Yes: Scars (midline scar with [place]). No: Distention ...Auscultate: Yes: Normoactive Bowel Sounds ...Palpate: Yes: Soft. No: Tenderness ...Percussion: Yes: Fluid Wave. No: Tympanitic Neurological: Yes: Alert Labs: CBC, BMP 06/02/18 05:30 06/02/18 05:30 INR, PTT INR 3.53 (0.83-1.09) H 06/02/18 05:30 Problem List - Problems (1) Ascites Assessment/Plan: Obtain previous culture and fluid analysis studies from [facility] Will likely need repeat diagnostic paracentesis with fluid sent for cell count with diff, culture,cytology, albumin, total protein, LDH, glucose, AFB culture and smear Abx per ID Anemia w/u per primary team Code(s): R18.8 - OTHER ASCITES
--- NOTE | 2018-06-02 15:54 | PN ---
Physical Exam: SUBJECTIVE: Patient seen and examined at bed side this morning. Wants to get his anti-anxiety medications. States he takes Ambient 30 mg HS daily and is asking for medications to help him sleep. Denies chest pain, sob, cough, palpitation, abdominal pain, nausea or vomiting. HD done yesterday after CT abdomen/pelvis with IV and PO contrast. OBJECTIVE: Vital Signs Period Temp Pulse Resp BP Sys/Emery Pulse Ox Last 24 Hr 97.3 F-98.4 F 73-91 18-20 99-125/56-94 97-100 GENERAL: Middle aged male, lying in bed, is awake, alert, and fully oriented, in no acute distress. EYES: EOM intact, no pallor or icterus. NECK: Supple. LUNGS: B/L coarse breath sounds, no wheeze. HEART: Regular rate and rhythm, S1, S2 with systolic murmur. ABDOMEN: Vertical surgical scar johnny + [place] removed, area looks dry and clean , abdomen is soft, nontender, no organomegaly. UPPER EXTREMITIES: 2+ pulses, warm, well-perfused, no edema. LOWER EXTREMITIES: Left Heel: Stage II ulcer + B/L no edema. NEUROLOGICAL: No facial droop, Normal speech, gait not observed. PSYCH: Normal mood, normal affect. SKIN: Warm, dry, normal turgor, no rashes or lesions noted Laboratory Results - last 24 hr 06/01/18 06/01/18 06/02/18 07:55 07:55 05:30 WBC RBC Hgb Hct MCV MCH MCHC RDW Plt Count MPV PT with INR INR PTT (Actin FS) Sodium 141 Potassium 3.9 Chloride 103 Carbon Dioxide 30 Anion Gap 8 BUN 28 H Creatinine 3.6 H Creat Clearance w eGFR 16.95 POC Glucometer Random Glucose 145 H Calcium 7.2 L Phosphorus 2.4 L Magnesium 2.1 Total Bilirubin 0.4 AST 17 ALT 15 Alkaline Phosphatase 129 H Total Protein 4.7 L Albumin 2.1 L TSH 19.40 H Hepatitis A IgM Ab Negative Hep Bs Antigen Negative Hep B Core IgM Ab Negative Negative Hepatitis C Antibody 0.1 HIV Genotype Non reactive 06/02/18 06/02/18 06/02/18 05:30 05:30 05:30 WBC 8.3 RBC 2.54 L Hgb 7.1 L Hct 22.9 L MCV 90.2 MCH 27.8 MCHC 30.8 L RDW 18.5 H Plt Count 206 MPV 7.7 PT with INR 42.20 H INR 3.53 H PTT (Actin FS) 36.4 Sodium Potassium Chloride Carbon Dioxide Anion Gap BUN Creatinine Creat Clearance w eGFR POC Glucometer Random Glucose Calcium Phosphorus Magnesium Total Bilirubin AST ALT Alkaline Phosphatase Total Protein Albumin TSH Hepatitis A IgM Ab Hep Bs Antigen Hep B Core IgM Ab Hepatitis C Antibody HIV Genotype 06/02/18 12:23 WBC RBC Hgb Hct MCV MCH MCHC RDW Plt Count MPV PT with INR INR PTT (Actin FS) Sodium Potassium Chloride Carbon Dioxide Anion Gap BUN Creatinine Creat Clearance w eGFR POC Glucometer 215 Random Glucose Calcium Phosphorus Magnesium Total Bilirubin AST ALT Alkaline Phosphatase Total Protein Albumin TSH Hepatitis A IgM Ab Hep Bs Antigen Hep B Core IgM Ab Hepatitis C Antibody HIV Genotype Active Medications Generic Name Dose Route Start Last Admin Trade Name Freq PRN Reason Stop Dose Admin Acetaminophen 650 mg 06/02/18 08:58 06/02/18 09:35 Tylenol - PO 650 mg Q4H PRN Administration HEADACHE Albumin Human 12.5 gm 06/03/18 12:30 Albumin Human 25% IVPB 06/03/18 14:01 Q30M JULIAN Amiodarone HCl 200 mg 06/01/18 11:21 06/02/18 09:34 Cordarone - PO 200 mg DAILY JULIAN Administration Calcium Carbonate 500 mg 06/01/18 16:30 06/02/18 12:06 Os-Merlin 500mg - PO 500 mg TIDAC JULIAN Administration Citalopram Hydrobromide 20 mg 06/01/18 13:15 06/02/18 09:34 Celexa - PO 20 mg DAILY JULIAN Administration Collagenase 1 applic 06/01/18 17:15 06/02/18 09:40 Santyl - TP 1 applic DAILY JULIAN Administration Protocol Cyanocobalamin 100 mcg 06/01/18 13:15 06/02/18 09:34 Vitamin B12 - PO 100 mcg DAILY JULIAN Administration Epoetin Josemanuel 10,000 unit 06/03/18 12:18 Procrit - IVPUSH 06/03/18 12:19 ONCE ONE Folic Acid 1 mg 06/01/18 13:15 06/02/18 09:34 Folic Acid - PO 1 mg DAILY JULIAN Administration Sodium Chloride 250 mls @ 3,000 mls/hr 06/02/18 12:18 Normal Saline - IV 06/03/18 12:18 PRN PRN Hypotension during Dialysis Piperacillin Sod/Tazobactam 50 mls @ 100 mls/hr 06/02/18 18:00 Sod 2.25 gm/ Dextrose IVPB Q8H-IV JULIAN Protocol Levothyroxine Sodium 100 mcg 06/02/18 07:00 06/02/18 07:01 Synthroid - PO 100 mcg DAILY@0700 JULIAN Administration Midodrine 5 mg 06/01/18 14:00 06/02/18 14:00 Proamatine - PO 5 mg TID-MID JULIAN Administration Multivit/Ca Carb/B Cmplx/FA/Prenat 1 tablet 06/01/18 13:30 06/02/18 09:34 Nephro-Zane - PO 1 tablet DAILY JULIAN Administration IMAGING DONE AT another facility: The CTA of A/P 05/23/18 revealed a prior hemicolectomy, dilated loops of small bowel, large volume of ascites with scattered bubbles of free air in the LUQ, homogeneous liver that was not enlarged, normal appearing spleen, non specific segmental small bowel wall thickening. ? if related to surgery vs. bowel leak. CTA of the chest 05/23/18: Report was provided: small rt. pleural effusion, filling defect in SVC around HD catheter, partially occluded infra azygous/ supra azygous SVC, partially occluding filling defect in the lt. brachiocephalic vein, innumerable chest wall and mediastinal collateral 05/24/[address] scan of the A/P with PO and IV contrast to eval for the previously noted air bubbles in ascites: small b/l pleural effusions, no extravasation of contrast, mod amount of fluid in abdomen with thin rim of peripheral enhancement and multiple foci of free air. ? normal peritoneal enhancement with ? resolving post surgical airvs. infectious fluid collection. 05/24/18 US of abdomen at time of paracentesis: innumerable loculations and septations: paracentesis performed in "outer right abdomen". IMAGING DONE AT [facility]: Ultrasound abdomen 06/01/18: Complex fluid/Ascites with septations seen in [address] abdomen/Pelvis. CXR: s/p CABG, right sided pleural effusion, infiltrate at the bases cannot be excluded. 06/01/18 CT abdomen/Pelvis with IV and PO contrast: A large amount of ascites is seen within the abdomen and pelvis with associated mild smooth diffuse peritoneal thickening. A small pneumoperitoneum is noted - ? history of recent paracentesis (and/or secondary to perforation). Correlate clinically. Marked bilateral renal atrophy. Bilateral flank subcutaneous edema. No definite CT evidence of current colitis. 06/01/18: ECHO: Left ventricular systolic function is mildly reduced. There is mild global hypokinesis of left ventricle. Right ventricle is normal in size and function. There is a pacemaker lead in the right ventricle and atrium. Trace TR. ASSESSMENT/PLAN: Patient is a 67 year old male with PMHx of CAD s/p CABG, Defibrillator (Cochise Trusera), COPD (on 2-3L Home O2), ESRD (On HD // via Right Tunnel Cath) , CHF presents from [facility] with Chest pain. Records from [facility]3] attached in the chart. # Loculated ascites CT abdomen/Pelvis done yesterday, unable to see loculation as was previously seen in Ultrasound Will try to obtain records from [facility]3]-the reports of paracentesis done last week. HIV, Hep panel negative Continue to treat empirically with IV Ceftriaxone and IV Azithromycin. GI recommending repeat diagnostic paracentesis. However the INR is 3.5, will hold paracentesis until INR Is <1.5 # Supratherapeutic INR INR 5 on admission, 3.5 today. Patient on Eliquis which doesn't affect INR. Suspect it could be from liver disease Eliquis is on hold. Heme/onc consulted. # Chest pain -Likely due to anxiety. Troponin x 3 negative. EKG: Sinus rhythm no ST or T wave changes, unlikely ACS ECHO 06/01/18, report as above CXR: s/p CABG, right sided pleural effusion, infiltrate at the bases cannot be excluded. # Shortness of breath/Palpitations likely from anxiety # Prolonged Qtc Qtc is 544. Avoid qtc prolonging agents. # History of ischemic colitis s/p right hemicolectomy # Congestive heart failure BNP 80228.4. ECHO pending Hold Coreg 3.125 mg PO BID # ESRD on TTS AVF created on 05/03/18 at [facility]. HD done yesterday. # Normocytic anemia likely from anemia of chronic disease H/H 8.2/24.8--> 7.5/23.9--> 7.1/22.9 Continue Folic acid and Vitamin B12 # CAD s/p CABG Continue Aspirin 81 mg # Hypotensive episodes during dialysis On Midodrine 5 mg TID # Hypothyroidism Continue Synthroid 100 mcg # Insomnia On Melatonin 10 mg, hold for now # Depression Continue Citalopram and Zolpidem # FEN Not on IV Fluids Electrolytes WNL Sodium controlled diet # Prophylaxis For DVT: On Eliquis at home, has supratherapeutic INR so hold Eliquis For GI: Not indicated # Code Status: Full Code # Dispo: Admit in Tele. Duration of stay unknown. Plan of care explained to the patient and his family. They verbalized understanding. Case discussed with Dr. Pink. Visit type - Emergency Visit Emergency Visit: Yes ED Registration Date: 05/31/18 Care time: The patient presented to the Emergency Department on the above date and was hospitalized for further evaluation of their emergent condition. - New Patient This patient is new to me today: No - Critical Care Critical Care patient: No - Discharge Referral Referred to [facility] Med P.C.: No
--- NOTE | 2018-06-02 16:50 | PN ---
Teaching Attending Note Name of Resident: Silvina Cleveland ATTENDING PHYSICIAN STATEMENT I saw and evaluated the patient. I reviewed the resident's note and discussed the case with the resident. I agree with the resident's findings and plan as documented. SUBJECTIVE: Mr Schaeffer complains of insomnia and anxiety. No cp, sob, n/v OBJECTIVE: Last Vital Signs Temp Pulse Resp BP Pulse Ox 36.6 C 91 H 18 113/59 L 100 06/02/18 11:00 06/02/18 11:00 06/02/18 11:00 06/02/18 11:00 06/02/18 09:00 Gen: nad Pulm: ctab w/o w/r/r CV: rrr w/o m/r/g Abd: +bs, s/nt, distention Ext: no c/c/e CBC, BMP 06/02/18 05:30 06/02/18 05:30 ASSESSMENT AND PLAN: (1) Hypotension Assessment/Plan: -improved -? if infectious (even though no leukocytosis or fever) secondary to fluid infection -also consider if he takes anxiolytics because he is constantly demanding something for anxiety -improved today -continue antibiotics -continue midodrine -if blood pressure stable today, will trial low dose of anxiolytics Code(s): I95.9 - HYPOTENSION, UNSPECIFIED (2) ESRD (end stage renal disease) Assessment/Plan: -case d/w Dr Jones -s/p HD -continue per nephrology recommendations Code(s): N18.6 - END STAGE RENAL DISEASE (3) Ascites Assessment/Plan: -case d/w surgery and ID -plan to change rocephin and flagyl to zosyn -CT scan reviewed with Dr Crum -Dr Crum to d/w surgeon at [facility] previous surgeries -no leak found on CT scan -may benefit from drainage by IR Code(s): R18.8 - OTHER ASCITES (4) Supratherapeutic INR Assessment/Plan: -consult hematology Code(s): R79.1 - ABNORMAL COAGULATION PROFILE (5) CAD (coronary artery disease) Assessment/Plan: -case d/w Cardiology -ECHO reviewed -holding coreg secondary to hypotension Code(s): I25.10 - ATHSCL HEART DISEASE OF [place] CORONARY ARTERY W/O ANG PCTRS (6) CHF (congestive heart failure) Assessment/Plan: -ECHO reviewed -improved after HD Code(s): I50.9 - HEART FAILURE, UNSPECIFIED Qualifiers: Heart failure chronicity: acute on chronic (7) Hypothyroid Assessment/Plan: -continue synthroid Code(s): E03.9 - HYPOTHYROIDISM, UNSPECIFIED (8) SBP (secondary bacterial peritonitis) Assessment/Plan: -with loculated ascites -as above Code(s): K65.2 - SPONTANEOUS BACTERIAL PERITONITIS (9) Anxiety -consult psychiatry Problem List - Problems (1) Hypotension Code(s): I95.9 - HYPOTENSION, UNSPECIFIED (2) ESRD (end stage renal disease) Code(s): N18.6 - END STAGE RENAL DISEASE (3) Ascites Code(s): R18.8 - OTHER ASCITES (4) Supratherapeutic INR Code(s): R79.1 - ABNORMAL COAGULATION PROFILE (5) CAD (coronary artery disease) Code(s): I25.10 - ATHSCL HEART DISEASE OF [place] CORONARY ARTERY W/O ANG PCTRS (6) CHF (congestive heart failure) Code(s): I50.9 - HEART FAILURE, UNSPECIFIED Qualifiers: Heart failure chronicity: acute on chronic (7) Hypothyroid Code(s): E03.9 - HYPOTHYROIDISM, UNSPECIFIED (8) SBP (spontaneous bacterial peritonitis) Code(s): K65.2 - SPONTANEOUS BACTERIAL PERITONITIS
[2018-06-02] MEDS ORDERED: DEXTROSE 5%-WATER - 50 ML IVPB ONE (17:11)
[2018-06-02] MEDS ORDERED: PIPERACILLIN/TAZOBACTAM 2.25 GM VIAL IVPB ONE (17:11)
[2018-06-02] MEDS: PIPERACILLIN/TAZOB 2.25 GM 2.25 GM in DEXTROSE 5%-WATER - 50 ML IVPB SCH (17:24)
[2018-06-02] MEDS ORDERED: SODIUM CHLORIDE 250 ML IV PRN (18:07)
--- NOTE | 2018-06-02 19:18 | CONSULT ---
Consult Consult Specialty:: General Surgery Referred by:: Dr. Pink Reason for Consultation:: loculated ascites, ?peritonitis - History of Present Illness Chief Complaint: anxiety, denies abd pain; loculated ascites on imaging History of Present Illness: 67yoM with multiple medical problems and significant surgical history, including CAD s/p CABG, ESRD on HD, and COPD on O2; recently had fall requiring ORIF R hip, complicated right after by SB and extended R colon resection in April at [facility] for ischemic bowel, more recently found to have loculated ascites that grew Klebsiella on tap at [facility] last week. He was d/c' d from [facility] 05/29 to rehab, but readmitted here 05/31 after he had nausea and palpitations and anxiety during HD, similar to an episode that took him back to [facility] from 05/23-05/29. He did not want to return to [facility] from rehab, or again, according to chart. He had CT scan here that also shows large ascites with few air bubbles in LUQ (similar to report from [facility] last week), and surgery is asked to evaluate need for any intervention. He is seen and examined in bed, and he denies abdominal pain or vomiting. He has not had a fever. He has had loose stool, probably from the oral contrast from CT. He was dialyzed last night after the CT. He is tolerating diet. - History Source History Provided By: Patient, Medical Record, Caregiver (Dr. Pink) Limitations to Obtaining History: No Limitations - Past Medical History Cardio/Vascular: Yes: CAD, CHF, Deep Vein Thrombosis, Hyperlipdemia Pulmonary: Yes: COPD, O2 Dependent (only since hospital in Apr per pt) Gastrointestinal: Yes: Other (mesenteric/bowel ischemia) Renal/: Yes: Renal Failure (ESRD on HD), Hemodialysis Psych: Yes: Anxiety Rheumatology: Yes: Gout Endocrine: Yes: Hypothyroidism - Past Surgical History Past Surgical History: Yes: AICD (2006), CABG (2005), Colectomy (jejunal resection; also terminal ileal/appendix resection with extended right hemicolectomy for ischemia 05/09), Permanent Pacemaker (/AICD). No: AV Fistula/ Graft (planned but not yet done) Additional Surgical History: right wrist surgery w/hardware; right neck/chest permacath for HD; R hip ORIF 05/09 - Alcohol/Substance Use Hx Alcohol Use: No History of Substance Use: reports: None - Smoking History Smoking history: Former smoker Have you smoked in the past 12 months: No If you are a former smoker, when did you quit?: May 2005 - Social History Usual Living Arrangement: Skilled Nursing (since 05/09 - was previously at home and independent) ADL: Support Services History of Recent Travel: No Home Medications - Allergies Allergies/Adverse Reactions: Allergies Allergy/AdvReac Type Severity Reaction Status Date / Time gluten Allergy Verified 05/31/18 19:44 No Known Drug Allergies Allergy Verified 05/31/18 19:44 - Home Medications Home Medications: Ambulatory Orders Allopurinol [Zyloprim -] 1 tab PO DAILY 03/17/18 Amiodarone HCl 1 tab PO DAILY 03/17/18 Aspirin [ASA -] 81 mg PO DAILY 03/17/18 Carvedilol 1 tab PO BID 03/17/18 Levothyroxine [Synthroid -] 1 tab PO DAILY 03/17/18 Pravastatin Sodium [Pravachol -] 1 tab PO DAILY 03/17/18 Zolpidem Tartrate [Ambien Cr] 1 tab PO HS 03/17/18 Acetaminophen [Tylenol] 650 mg PO DAILY PRN 05/31/18 Apixaban [Eliquis -] 2.5 mg PO BID 05/31/18 Calcium Carbonate [Calcium] 500 mg PO AC 05/31/18 Citalopram Hydrobromide [Citalopram HBr] 20 mg PO DAILY 05/31/18 Cyanocobalamin [Vitamin B12 -] 100 mcg PO DAILY 05/31/18 Folic Acid - 1 mg PO DAILY 05/31/18 Melatonin/Pyridoxine HCl (B6) [Melatonin 10 mg Tablet] 1 each PO HS 05/31/18 Midodrine HCl [Proamatine -] 5 mg PO TID 05/31/18 Vit B Comp No.3/Folic/C/Biotin [Krystina-Zane Rx Tablet] 1 each PO DAILY 05/31/18 Family Disease History - Family Disease History Family History: Unremarkable Other Family History: No family history of colorectal cancer or other GI malignancy. Review of Systems - Review of Systems Constitutional: denies: Chills, Fever Eyes: denies: Blurred Vision, Recent Change in Vision HENT: denies: Difficult Swallowing, Throat Pain Neck: denies: Swollen Glands, Tenderness Cardiovascular: reports: Palpitations. denies: Chest Pain Respiratory: denies: Cough, SOB Gastrointestinal: denies: Abdominal Pain, Constipation, Diarrhea, Nausea, Vomiting Genitourinary: denies: Burning, Dysuria Musculoskeletal: reports: Extremity Pain (left heel (has sore/ulcer)). denies: Back Pain, Joint Swelling Integumentary: denies: Change in Color, Rash Neurological: denies: Dizziness, Headache Psychiatric: reports: Anxiety Physical Exam Vital Signs: Vital Signs Temperature 97.9 F 06/02/18 11:00 Pulse Rate 91 H 06/02/18 11:00 Respiratory Rate 18 06/02/18 11:00 Blood Pressure 113/59 L 06/02/18 11:00 O2 Sat by Pulse Oximetry (%) 100 06/02/18 09:00 Constitutional: Yes: Well Nourished, No Distress, Calm (but c/o anxiety) Eyes: Yes: Conjunctiva Clear, EOM Intact HENT: Yes: Atraumatic, Normocephalic Neck: Yes: Supple, Trachea Midline Cardiovascular: Yes: Regular Rate and Rhythm, Other (right permacath in place, left anterior chest with palpable aicd/healed scar) Respiratory: Yes: Regular, Diminished (at bases), On Nasal O2. No: Accessory Muscle Use, Wheezes Gastrointestinal: Yes: Normal Bowel Sounds (more on right), Soft, Ascites (+ fluid wave), Distention (with some tympany), Other (healing scar with scabbing in few spots, [place] have been removed). No: Tenderness ...Rectal Exam: Yes: Deferred Renal/: No: CVA Tenderness - Left, CVA Tenderness - Right Musculoskeletal: No: Joint Stiffness, Joint Swelling Extremities: Yes: Other (left foot/heel dressed - not taken down). No: Cool, Cyanosis Peripheral Pulses WNL: Yes (faint DP pulses) Integumentary: Yes: Incision (midline, healing). No: Jaundice, Rash Wound/Incision: Yes: Clean/Dry, Well Approximated, Open to air. No: Reddened Neurological: Yes: Alert, Oriented Psychiatric: Yes: Alert, Oriented Labs: CBC, BMP 06/02/18 05:30 06/02/18 05:30 CMP Sodium 141 mmol/L (136-145) 06/02/18 05:30 Potassium 3.9 mmol/L (3.5-5.1) 06/02/18 05:30 Chloride 103 mmol/L (98-107) 06/02/18 05:30 Carbon Dioxide 30 mmol/L (21-32) 06/02/18 05:30 Anion Gap 8 MMOL/L (8-16) 06/02/18 05:30 BUN 28 mg/dL (7-18) H 06/02/18 05:30 Creatinine 3.6 mg/dL (0.55-1.3) H 06/02/18 05:30 Creat Clearance w eGFR 16.95 (>60) 06/02/18 05:30 POC Glucometer 215 UNITS (80-120) 06/02/18 12:23 Random Glucose 145 mg/dL (74-106) H 06/02/18 05:30 Calcium 7.2 mg/dL (8.5-10.1) L 06/02/18 05:30 Phosphorus 2.4 mg/dL (2.5-4.9) L 06/02/18 05:30 Magnesium 2.1 mg/dL (1.8-2.4) 06/02/18 05:30 Total Bilirubin 0.4 mg/dL (0.2-1) 06/02/18 05:30 AST 17 U/L (15-37) 06/02/18 05:30 ALT 15 U/L (13-61) 06/02/18 05:30 Alkaline Phosphatase 129 U/L (45-117) H 06/02/18 05:30 Troponin I 0.03 ng/ml (0.00-0.05) 06/01/18 05:10 B-Natriuretic Peptide 25267.4 pg/ml (5-125) H 06/01/18 07:55 Total Protein 4.7 g/dl (6.4-8.2) L 06/02/18 05:30 Albumin 2.1 g/dl (3.4-5.0) L 06/02/18 05:30 Prealbumin 4.7 mg/dl (20-40) L 06/01/18 05:30 TSH 19.40 uIU/ml (0.358-3.74) H 06/02/18 05:30 INR, PTT INR 3.53 (0.83-1.09) H 06/02/18 05:30 INR down from 5 Microbiology 06/01/18 13:50 Blood Culture - Preliminary Blood - Peripheral Venous NO GROWTH OBTAINED AFTER 24 HOURS, INCUBATION TO CONTINUE FOR 4 DAYS. 06/01/18 13:40 Blood Culture - Preliminary Blood - Peripheral Venous NO GROWTH OBTAINED AFTER 24 HOURS, INCUBATION TO CONTINUE FOR 4 DAYS. Imaging - Results Cat Scan: Report Reviewed, Image Reviewed (images personally reviewed - copious ascites, few locules of air in LUQ, no apparent septations visible on CT; enteral contrast throughout bowel to rectum, anastomosis of SB to colon noted in LUQ, no contrast extravasation; no obstruction, also some pleural effusions) Problem List - Problems (1) Ascites Assessment/Plan: s/p paracentesis 05/24 at [facility] by report, possibly source of air locules? vs infectious peritonitis pt on abx per ID no abdominal pain or tenderness, no contrast extravasation on CT, no wbc, no fevers tends to argue against active infectious process ascites may be related to CHF, passive liver congestion? will review records from [facility], will reach out to surgeon for more info may be reasonable to retap fluid from LUQ for culture, possibly pelvis as well, if loculated, but would limit drainage to ~2L no acute surgical intervention indicated at this time will follow up discussed with Dr. Pink and Dr. Jones Thank you for the opportunity to participate in the care of this patient. Code(s): R18.8 - OTHER ASCITES Qualifiers: Ascites type: other type Qualified Code(s): R18.8 - Other ascites (2) S/P partial colectomy Code(s): Z90.49 - ACQUIRED ABSENCE OF OTHER SPECIFIED PARTS OF DIGESTIVE TRACT (3) S/P small bowel resection Code(s): Z90.49 - ACQUIRED ABSENCE OF OTHER SPECIFIED PARTS OF DIGESTIVE TRACT (4) Supratherapeutic INR Code(s): R79.1 - ABNORMAL COAGULATION PROFILE (5) CAD (coronary artery disease) Code(s): I25.10 - ATHSCL HEART DISEASE OF [place] CORONARY ARTERY W/O ANG PCTRS Qualifiers: Coronary Disease-Associated Artery/Lesion type: [place] artery [place] vs. transplanted heart: [place] heart Associated angina: without angina Qualified Code(s): I25.10 - Atherosclerotic heart disease of [place] coronary artery without angina pectoris (6) CHF (congestive heart failure) Code(s): I50.9 - HEART FAILURE, UNSPECIFIED Qualifiers: Heart failure type: unspecified Heart failure chronicity: acute on chronic Qualified Code(s): I50.9 - Heart failure, unspecified (7) ESRD (end stage renal disease) Code(s): N18.6 - END STAGE RENAL DISEASE (8) Hypothyroid Code(s): E03.9 - HYPOTHYROIDISM, UNSPECIFIED Qualifiers: Hypothyroidism type: unspecified Qualified Code(s): E03.9 - Hypothyroidism , unspecified
--- NOTE | 2018-06-02 23:06 | PN ---
Teaching Attending Note Name of Resident: Kenzie Yeung ATTENDING PHYSICIAN STATEMENT I saw and evaluated the patient. I reviewed the resident's note and discussed the case with the resident. I agree with the resident's findings and plan as documented. ASSESSMENT AND PLAN: 67M admitted from HD secondary to chest pain, SOB and anxiety. he was admitted to [facility] 05/23/18 and discharged 05/29/18. He recently had right ORIF secondary to fall/syncope at [facility] 04/26/18 during previous admission. post operatively his course was complicated by mesenteric ischemia, s/p Ex-Lap with resection of jejnum/ileum and including extended right hemicolectomy. . Discharged from [facility] then readmitted 05/23/18 secondary to SBH secondary to nausea , SOB during HD. Diarrhea was noted since bowel resection. During 05/23-05/29 admission: noted to have lactic acidosis, echo revealed mod global hypokinesis, CTA of the abdomen/pelvis revealed ascites. He underwent 700cc paracentesis. seropurulent fluid described. cultures + for Kleb Oxytoca. Started on ceftriaxone, with hospital course complicated by hypotension. CTA of the chest 05/23/18: Report was provided: small rt. pleural effusion, filling defect in SVC around HD catheter, partially occluded infra azygous/ supra azygous SVC, partially occluding filling defect in the lt. brachiocephalic vein, innumerable chest wall and mediastinal collateral 05/24/[address] a [address] scan of the A/P with PO and IV contrast to eval for the previously noted air bubbles in ascites: small b/l pleural effusions, no extravasation of contrast, mod amount of fluid in abdomen with thin rim of peripheral enhancement and multiple foci of free air. ? normal peritoneal enhancement with ? resolving post surgical airvs. infectious fluid collection. 05/24/18 US of abdomen at time of paracentesis: innumerable loculations and septations: paracentesis performed in "outer right abdomen". It does appear that 60 cc was removed for labarotory analysis. He currently denies any abdominal pain. Feels very fatigues - History Source History Provided By: Patient, Medical Record - Past Medical History Cardio/Vascular: Yes: CAD, CHF, Hyperlipdemia Pulmonary: Yes: COPD, O2 Dependent Gastrointestinal: Yes: Other (mesenteric ischemia) Renal/: Yes: Renal Failure (ESRD on HD) Rheumatology: Yes: Gout Endocrine: Yes: Hypothyroidism - Past Surgical History Past Surgical History: Yes: AV Fistula/Graft Additional Surgical History: Small bowel resection / extended right hemicomectomy - Alcohol/Substance Use Hx Alcohol Use: No - Smoking History Smoking history: Former smoker Have you smoked in the past 12 months: No If you are a former smoker, when did you quit?: 12yrs - Social History Usual Living Arrangement: [facility]L: Support Services [facility] of : [facility] History of Recent Travel: No Home Medications - Allergies Allergies/Adverse Reactions: Allergies Allergy/AdvReac Type Severity Reaction Status Date / Time gluten Allergy Verified 05/31/18 19:44 No Known Drug Allergies Allergy Verified 05/31/18 19:44 - Home Medications Home Medications: Ambulatory Orders Allopurinol [Zyloprim -] 1 tab PO DAILY 03/17/18 Amiodarone HCl 1 tab PO DAILY 03/17/18 Aspirin [ASA -] 81 mg PO DAILY 03/17/18 Carvedilol 1 tab PO BID 03/17/18 Levothyroxine [Synthroid -] 1 tab PO DAILY 03/17/18 Pravastatin Sodium [Pravachol -] 1 tab PO DAILY 03/17/18 Zolpidem Tartrate [Ambien Cr] 1 tab PO HS 03/17/18 Acetaminophen [Tylenol] 650 mg PO DAILY PRN 05/31/18 Apixaban [Eliquis -] 2.5 mg PO BID 05/31/18 Calcium Carbonate [Calcium] 500 mg PO AC 05/31/18 Citalopram Hydrobromide [Citalopram HBr] 20 mg PO DAILY 05/31/18 Cyanocobalamin [Vitamin B12 -] 100 mcg PO DAILY 05/31/18 Folic Acid - 1 mg PO DAILY 05/31/18 Melatonin/Pyridoxine HCl (B6) [Melatonin 10 mg Tablet] 1 each PO HS 05/31/18 Midodrine HCl [Proamatine -] 5 mg PO TID 05/31/18 Vit B Comp No.3/Folic/C/Biotin [Krystina-Zane Rx Tablet] 1 each PO DAILY 05/31/18 Family Disease History - Family Disease History Other Family History: No family history of colorectal cancer or other GI malignancy. Review of Systems - Review of Systems Constitutional: denies: Chills, Fever Cardiovascular: reports: Chest Pain, Palpitations, Shortness of Breath Gastrointestinal: reports: Diarrhea. denies: Abdominal Pain, Melena, Rectal Bleeding, Vomiting, Vomiting Blood Physical Exam-GI Vital Signs: Last Vital Signs Temp Pulse Resp BP Pulse Ox 98.4 F 69 18 120/63 98 06/02/18 22:00 06/02/18 22:00 06/02/18 22:00 06/02/18 22:00 06/02/18 21:00 Constitutional: Yes: Calm Eyes: No: Sclera Icterus Cardiovascular: Yes: Regular Rate and Rhythm. No: Murmur Respiratory: Yes: CTA Bilaterally Gastrointestinal Inspection: Yes: Distention (mildley protuberant), Scars ( mideline surgical scar with [place]) ...Auscultate: Yes: Normoactive Bowel Sounds ...Palpate: No: Hepatomegaly, Splenomegaly, Tenderness Edema: Yes Edema: RLE: 1+ Neurological: Yes: Alert Labs: Abnormal Lab Results 06/02/18 06/02/18 06/02/18 05:30 05:30 05:30 RBC 2.54 L Hgb 7.1 L Hct 22.9 L MCHC 30.8 L RDW 18.5 H PT with INR 42.20 H INR 3.53 H BUN 28 H Creatinine 3.6 H Random Glucose 145 H Calcium 7.2 L Phosphorus 2.4 L Alkaline Phosphatase 129 H Total Protein 4.7 L Albumin 2.1 L TSH 19.40 H A/P 67 y/o patient with multiple comorbidities including hypothyroid, COPD, CAD, CHF , ESRD on HD, recent fall/fx/admission to [facility] for ORIF , post op. complicated by mesenteric ischemia--s/p rt. hemicoloectomy. also readmitted there for ascites, new onset. Noted to have ? filling defects in SVC around the catheter. ascites w/u per gi team anemia--multifactorial CKD/chf ? gi losses tristan k iron studies transfuse prbcs at dialysis tomorrow svc filling defects around hd catheter check duplex ? ct chest with contrast--to coordinate with dialysis eliquis on hold for procedures mesenteric ischemia--? h/o--s/p extended rt. hemicolectomhy ? related to low flow state? ? no obvious thrombus ? thombophilia w/u utility
[2018-06-03] MEDS ORDERED: PIPERACILLIN/TAZOBACTAM 2.25 GM VIAL IVPB ONE ×3 (00:50→21:42)
[2018-06-03] MEDS ORDERED: DEXTROSE 5%-WATER - 50 ML IVPB ONE ×3 (00:50→21:43)
[2018-06-03] MEDS: PIPERACILLIN/TAZOB 2.25 GM 2.25 GM in DEXTROSE 5%-WATER - 50 ML IVPB SCH ×3 (01:30→21:55)
[2018-06-03] MEDS: LEVOTHYROXINE NA 100 MCG TABLET (FP) PO SCH (06:46)
[2018-06-03] MEDS: CALCIUM (OYSTER SHELL) 500 MG TABLET (FP) PO SCH ×3 (06:46→18:51)
[2018-06-03 08:02] LABS: INR 2.69 (0.83-1.09); PROTHROMBIN TIME (PATIENT) 32.1 SEC (9.7-13.0)
[2018-06-03 08:31] LABS: MAGNESIUM 2.1 mg/dL (1.8-2.4); PHOSPHOROUS 2.7 mg/dL (2.5-4.9)
[2018-06-03] MEDS: AMIODARONE HCL 200 MG TABLET (FP) PO SCH (10:21)
[2018-06-03] MEDS: COLLAGENASE CLOSTRIDIUM HIST. 30 GRAMS TUBE TP SCH (10:21)
[2018-06-03] MEDS: CYANOCOBALAMIN (VITAMIN B-12) 100 MCG TABLET PO SCH (10:21)
[2018-06-03] MEDS: CITALOPRAM HYDROBROMIDE 20 MG TABLET (FP) PO SCH (10:21)
[2018-06-03] MEDS: MIDODRINE HCL 5 MG TABLET PO SCH ×3 (10:21→18:51)
[2018-06-03] MEDS: VITAMIN B COMP W-C 1 EA TABLET PO SCH (10:21)
[2018-06-03] MEDS: FOLIC ACID 1 MG TABLET (FP) PO SCH (10:21)
--- NOTE | 2018-06-03 10:32 | PN ---
Progress Note (short form) - Note Progress Note: s: no cp sob palps dizzy o: Vital Signs Period Temp Pulse Resp BP Sys/Emery Pulse Ox Last 24 Hr 97.4 F-98.4 F 69-91 18-18 113-132/55-66 98 Constitutional: Yes: Well Nourished, No Distress, Calm Eyes: Yes: Conjunctiva Clear, EOM Intact HENT: Yes: Atraumatic, Normocephalic Neck: Yes: Supple, Trachea Midline Respiratory: Yes: Regular, Rales (bases bilaterally) Gastrointestinal: Yes: Normal Bowel Sounds, Soft Cardiovascular: Yes: Regular Rate and Rhythm JVD: No Carotid Bruit: No PMI: Non-Displaced Heart Sounds: Yes: S1, S2 Musculoskeletal: No: Back Pain Extremities: No: Cold Edema: trace Peripheral Pulses: 2+ Left Doralis Pedis, 2+ Right Dorsalis Pedis Integumentary: No: Jaundice Neurological: Yes: Alert, Oriented - Other Data Labs, Other Data: Current Medications Generic Name Dose Route Start Last Admin Trade Name Lois PRN Reason Stop Dose Admin Acetaminophen 650 mg 06/02/18 08:58 06/02/18 09:35 Tylenol - PO 650 mg Q4H PRN Administration HEADACHE Albumin Human 12.5 gm 06/03/18 12:30 Albumin Human 25% IVPB 06/03/18 14:01 Q30M JULIAN Amiodarone HCl 200 mg 06/01/18 11:21 06/03/18 10:21 Cordarone - PO 200 mg DAILY JULIAN Administration Calcium Carbonate 500 mg 06/01/18 16:30 06/03/18 06:46 Os-Merlin 500mg - PO 500 mg TIDAC JULIAN Administration Citalopram Hydrobromide 20 mg 06/01/18 13:15 06/03/18 10:21 Celexa - PO 20 mg DAILY JULIAN Administration Collagenase 1 applic 06/01/18 17:15 06/03/18 10:21 Santyl - TP 1 applic DAILY JULIAN Administration Protocol Cyanocobalamin 100 mcg 06/01/18 13:15 06/03/18 10:21 Vitamin B12 - PO 100 mcg DAILY JULIAN Administration Epoetin Josemanuel 10,000 unit 06/03/18 12:18 Procrit - IVPUSH 06/03/18 12:19 ONCE ONE Folic Acid 1 mg 06/01/18 13:15 06/03/18 10:21 Folic Acid - PO 1 mg DAILY JULIAN Administration Sodium Chloride 250 mls @ 3,000 mls/hr 06/02/18 12:18 Normal Saline - IV 06/03/18 12:18 PRN PRN Hypotension during Dialysis Piperacillin Sod/Tazobactam 50 mls @ 100 mls/hr 06/02/18 18:00 06/03/18 10:20 Sod 2.25 gm/ Dextrose IVPB 100 mls/hr Q8H-IV JULIAN Administration Protocol Levothyroxine Sodium 100 mcg 06/02/18 07:00 06/03/18 06:46 Synthroid - PO 100 mcg DAILY@0700 JULIAN Administration Midodrine 5 mg 06/01/18 14:00 06/03/18 10:21 Proamatine - PO 5 mg TID-MID JULIAN Administration Multivit/Ca Carb/B Cmplx/FA/Prenat 1 tablet 06/01/18 13:30 06/03/18 10:21 Nephro-Zane - PO 1 tablet DAILY JULIAN Administration CBC, BMP 06/02/18 05:30 06/02/18 05:30 Assessment/Plan echo 05/2018 nl LV size, mildly reduced function EF 45-50%, mild global hypokinesis of LV, nl RV, ppm lead in RV and RA, tr TR EKG: sinus, prolonged QTC, old septal infarct tele: sr Shortness of breath - trop neg x 3 - BNP elevated however unclear significance in patient with ESRD with known HF, however does have edema, rales on exam - due for HD, nephrology following - also with COPD hx, on chronic O2 - after hd pt feeling better, no sob acute on chronic systolic HF - mildly reduced EF on echo - appears volume up as above, however had partial HD session on Tuesday due to feeling anxious and is due today - volume management per renal-->pt feeling better after hd - not on DELANO/BB due to low BP Prolonged QTc - avoid QT prolonging agents - maintain K >4, Mg >2 s/p ICD ([employer]) - outpatient follow up, Dr. Stover - recent device checks unremarkable per patient hypotension - continue midodrine ESRD on HD - renal consulted CAD, s/p CABG - cont statin - holding aspirin, elevated INR and anemia mesenteric ischemia - recent dx, s/p surgery during recent admission for hip fx, was started on eliquis - holding eliquis due to elevated INR and anemia anemia - manage per primary
--- NOTE | 2018-06-03 13:01 | PN ---
Progress Note (short form) - Note Progress Note: RENAL Pt is awake and alert has not been dialyzed today yet but he will has a permcath in right chest no specific complaints Last Vital Signs Temp Pulse Resp BP Pulse Ox 98.0 F 94 H 18 143/74 100 06/03/18 09:00 06/03/18 09:00 06/03/18 09:00 06/03/18 09:00 06/03/18 09:00 lungs clear cvs s1s2 rr abd soft, some areas of fullness ext no edema CBC, BMP 06/02/18 05:30 06/02/18 05:30 Current Medications Generic Name Dose Route Start Last Admin Trade Name Freq PRN Reason Stop Dose Admin Acetaminophen 650 mg 06/02/18 08:58 06/02/18 09:35 Tylenol - PO 650 mg Q4H PRN Administration HEADACHE Albumin Human 12.5 gm 06/03/18 12:30 Albumin Human 25% IVPB 06/03/18 14:01 Q30M JULIAN Amiodarone HCl 200 mg 06/01/18 11:21 06/03/18 10:21 Cordarone - PO 200 mg DAILY JULIAN Administration Calcium Carbonate 500 mg 06/01/18 16:30 06/03/18 12:39 Os-Merlin 500mg - PO 500 mg TIDAC JULIAN Administration Citalopram Hydrobromide 20 mg 06/01/18 13:15 06/03/18 10:21 Celexa - PO 20 mg DAILY JULIAN Administration Collagenase 1 applic 06/01/18 17:15 06/03/18 10:21 Santyl - TP 1 applic DAILY JULIAN Administration Protocol Cyanocobalamin 100 mcg 06/01/18 13:15 06/03/18 10:21 Vitamin B12 - PO 100 mcg DAILY JULIAN Administration Epoetin Josemanuel 10,000 unit 06/03/18 12:18 Procrit - IVPUSH 06/03/18 12:19 ONCE ONE Folic Acid 1 mg 06/01/18 13:15 06/03/18 10:21 Folic Acid - PO 1 mg DAILY JULIAN Administration Sodium Chloride 250 mls @ 3,000 mls/hr 06/02/18 12:18 Normal Saline - IV 06/03/18 12:18 PRN PRN Hypotension during Dialysis Piperacillin Sod/Tazobactam 50 mls @ 100 mls/hr 06/02/18 18:00 06/03/18 10:20 Sod 2.25 gm/ Dextrose IVPB 100 mls/hr Q8H-IV JULIAN Administration Protocol Levothyroxine Sodium 100 mcg 06/02/18 07:00 06/03/18 06:46 Synthroid - PO 100 mcg DAILY@0700 JULIAN Administration Midodrine 5 mg 06/01/18 14:00 06/03/18 10:21 Proamatine - PO 5 mg TID-MID JULIAN Administration Multivit/Ca Carb/B Cmplx/FA/Prenat 1 tablet 06/01/18 13:30 06/03/18 10:21 Nephro-Zane - PO 1 tablet DAILY JULIAN Administration Impression 1. ESRD 2. CAD 3. CABG 4. COPD 5. CHF 6. SBP 7. DVT 8. hx mesinteric ischemia 9. hypothyroidism uncontrolled 10. gout 11. hld 12. pleural effusion 13. anemia 14 AICD Plan -surgical follow up -will need a fistula which will make it easier for him to get into a dialysis unit locally -HD today -fluid restriction -ascites fluid aspiration for SAAG MV
--- NOTE | 2018-06-03 13:56 | CON.PSY ---
Psychiatry Consult Chief Complaint: 67 year old male with anxiety and panic Disorder , ESRD on Dailysis seen for Psych eval. Patuient had been on Buspar 10 mg po tis for anxiety in the [facility]. Symptoms: reports: Anxiety - Previous Psychiatric Treatment Outpatient: None Inpatient: None - Previous Substance Abuse Treatment Outpatient: None Inpatient: None - Reason for Previous Treatment Reason for Previous Treatment: Anxiety or Panic Disorder - Current Medications Current Medications: Active Medications Acetaminophen (Tylenol -) 650 mg PO Q4H PRN PRN Reason: HEADACHE Last Admin: 06/02/18 09:35 Dose: 650 mg Albumin Human (Albumin Human 25%) 12.5 gm IVPB Q30M JULIAN Stop: 06/03/18 14:01 Amiodarone HCl (Cordarone -) 200 mg PO DAILY JULIAN Last Admin: 06/03/18 10:21 Dose: 200 mg Calcium Carbonate (Os-Merlin 500mg -) 500 mg PO TIDAC JULIAN Last Admin: 06/03/18 12:39 Dose: 500 mg Citalopram Hydrobromide (Celexa -) 20 mg PO DAILY JULIAN Last Admin: 06/03/18 10:21 Dose: 20 mg Collagenase (Santyl -) 1 applic TP DAILY [facility]; Protocol Last Admin: 06/03/18 10:21 Dose: 1 applic Cyanocobalamin (Vitamin B12 -) 100 mcg PO DAILY JULIAN Last Admin: 06/03/18 10:21 Dose: 100 mcg Epoetin Josemanuel (Procrit -) 10,000 unit IVPUSH ONCE ONE Stop: 06/03/18 12:19 Folic Acid (Folic Acid -) 1 mg PO DAILY JULIAN Last Admin: 06/03/18 10:21 Dose: 1 mg Sodium Chloride (Normal Saline -) 250 mls @ 3,000 mls/hr IV PRN PRN PRN Reason: Hypotension during Dialysis Stop: 06/03/18 12:18 Piperacillin Sod/Tazobactam (Sod 2.25 gm/ Dextrose) 50 mls @ 100 mls/hr IVPB Q8H-IV JULIAN; Protocol Last Admin: 06/03/18 10:20 Dose: 100 mls/hr Levothyroxine Sodium (Synthroid -) 100 mcg PO DAILY@0700 JULIAN Last Admin: 06/03/18 06:46 Dose: 100 mcg Midodrine (Proamatine -) 5 mg PO TID-MID JULIAN Last Admin: 06/03/18 10:21 Dose: 5 mg Multivit/Ca Carb/B Cmplx/FA/Prenat (Nephro-Zane -) 1 tablet PO DAILY [facility] Last Admin: 06/03/18 10:21 Dose: 1 tablet - Allergies Allergies: Allergies Allergy/AdvReac Type Severity Reaction Status Date / Time gluten Allergy Verified 05/31/18 19:44 No Known Drug Allergies Allergy Verified 05/31/18 19:44 - Current Living Status Usual Living Arrangement: Longterm - Current Mental Status Evaluation Appearance: Well Groomed Attitude: Cooperative - Affect Affect: Full Range - Mood Mood: Anxious - Speech/Language Expressive: Coherent - Psychomotor Activity Psychomotor Activity: Hyperactive - Thought Process Thought Process: Intact - Thought Content Hallucinations: Absent Delusions: Absent - Self Perception Self Perception: No Impairment - Cognition Attention: Alert Orientation: Time Memory, Immediate Recall: Intact Memory, Short Term: 3/3 Memory, Remote with Promptin/3 - Concentration Serial Sevens Intact: Yes Simple Calculations Intact: Yes - Abstraction Proverb Interpretation: Intact Judgement: Intact - Insight Insight: Intact - Impulse Control Impulse Control: Good Control - Suicidal Ideation Suicidal Ideation: No - Homicidal Ideation Homicidal Ideation: No Assessment/Plan 1) Add Buspar 10 mg po tid. 2) Continue with celexa 20mg po od.
[2018-06-03] MEDS ORDERED: PT OWN MED DRAWER 7, Y5N ONE (14:28)
[2018-06-03] MEDS: busPIRone HCL 10 MG TABLET (FP) PO SCH ×2 (14:46→21:58)
--- NOTE | 2018-06-03 14:50 | PN ---
Progress Note, Physician History of Present Illness: stable no new issues very anxious says he needs something for anxiousness - Current Medication List Current Medications: Active Medications Acetaminophen (Tylenol -) 650 mg PO Q4H PRN PRN Reason: HEADACHE Last Admin: 06/02/18 09:35 Dose: 650 mg Albumin Human (Albumin Human 25%) 12.5 gm IVPB Q30M JULIAN Stop: 06/03/18 14:01 Amiodarone HCl (Cordarone -) 200 mg PO DAILY [facility] Last Admin: 06/03/18 10:21 Dose: 200 mg Buspirone HCl (Buspar -) 10 mg PO TID [facility] Last Admin: 06/03/18 14:46 Dose: 10 mg Calcium Carbonate (Os-Merlin 500mg -) 500 mg PO TIDAC [facility] Last Admin: 06/03/18 12:39 Dose: 500 mg Citalopram Hydrobromide (Celexa -) 20 mg PO DAILY [facility] Last Admin: 06/03/18 10:21 Dose: 20 mg Collagenase (Santyl -) 1 applic TP DAILY [facility]; Protocol Last Admin: 06/03/18 10:21 Dose: 1 applic Cyanocobalamin (Vitamin B12 -) 100 mcg PO DAILY [facility] Last Admin: 06/03/18 10:21 Dose: 100 mcg Epoetin Josemanuel (Procrit -) 10,000 unit IVPUSH ONCE ONE Stop: 06/03/18 12:19 Folic Acid (Folic Acid -) 1 mg PO DAILY [facility] Last Admin: 06/03/18 10:21 Dose: 1 mg Sodium Chloride (Normal Saline -) 250 mls @ 3,000 mls/hr IV PRN PRN PRN Reason: Hypotension during Dialysis Stop: 06/03/18 12:18 Piperacillin Sod/Tazobactam (Sod 2.25 gm/ Dextrose) 50 mls @ 100 mls/hr IVPB Q8H-IV [facility]; Protocol Last Admin: 06/03/18 10:20 Dose: 100 mls/hr Levothyroxine Sodium (Synthroid -) 100 mcg PO DAILY@0700 [facility] Last Admin: 06/03/18 06:46 Dose: 100 mcg Midodrine (Proamatine -) 5 mg PO TID-MID [facility] Last Admin: 06/03/18 14:46 Dose: 5 mg Multivit/Ca Carb/B Cmplx/FA/Prenat (Nephro-Zane -) 1 tablet PO DAILY JULIAN Last Admin: 06/03/18 10:21 Dose: 1 tablet - Objective Vital Signs: Vital Signs Temperature 98.0 F 06/03/18 09:00 Pulse Rate 94 H 06/03/18 09:00 Respiratory Rate 18 06/03/18 09:00 Blood Pressure 143/74 06/03/18 09:00 O2 Sat by Pulse Oximetry (%) 100 06/03/18 09:00 Constitutional: Yes: No Distress, Anxious Cardiovascular: Yes: S1, S2 Respiratory: Yes: Regular, CTA Bilaterally Gastrointestinal: Yes: Normal Bowel Sounds, Soft Musculoskeletal: Yes: WNL Extremities: Yes: Other Neurological: Yes: Alert, Oriented Psychiatric: Yes: Alert, Oriented Labs: CBC, BMP 06/02/18 05:30 06/02/18 05:30 INR, PTT INR 2.69 (0.83-1.09) H 06/03/18 06:30 Assessment/Plan ASSESSMENT AND PLAN: (1) Hypotension Code(s): I95.9 - HYPOTENSION, UNSPECIFIED (2) ESRD (end stage renal disease) Code(s): N18.6 - END STAGE RENAL DISEASE (3) Ascites Code(s): R18.8 - OTHER ASCITES (4) Supratherapeutic INR Code(s): R79.1 - ABNORMAL COAGULATION PROFILE (5) CAD (coronary artery disease) Code(s): I25.10 - ATHSCL HEART DISEASE OF [place] CORONARY ARTERY W/O ANG PCTRS (6) CHF (congestive heart failure) Code(s): I50.9 - HEART FAILURE, UNSPECIFIED Qualifiers: Heart failure chronicity: acute on chronic (7) Hypothyroid Code(s): E03.9 - HYPOTHYROIDISM, UNSPECIFIED (8) SBP (secondary bacterial peritonitis) Code(s): K65.2 - SPONTANEOUS BACTERIAL PERITONITIS (9) Anxiety -consult psychiatry plan will change abx to zosyn nutrition rest as per the team close watch
--- NOTE | 2018-06-03 14:57 | PN ---
Progress Note, Physician History of Present Illness: patient stable no new issues - Current Medication List Current Medications: Active Medications Acetaminophen (Tylenol -) 650 mg PO Q4H PRN PRN Reason: HEADACHE Last Admin: 06/02/18 09:35 Dose: 650 mg Albumin Human (Albumin Human 25%) 12.5 gm IVPB Q30M [facility] Stop: 06/03/18 14:01 Amiodarone HCl (Cordarone -) 200 mg PO DAILY [facility] Last Admin: 06/03/18 10:21 Dose: 200 mg Buspirone HCl (Buspar -) 10 mg PO TID [facility] Last Admin: 06/03/18 14:46 Dose: 10 mg Calcium Carbonate (Os-Merlin 500mg -) 500 mg PO TIDAC [facility] Last Admin: 06/03/18 12:39 Dose: 500 mg Citalopram Hydrobromide (Celexa -) 20 mg PO DAILY [facility] Last Admin: 06/03/18 10:21 Dose: 20 mg Collagenase (Santyl -) 1 applic TP DAILY [facility]; Protocol Last Admin: 06/03/18 10:21 Dose: 1 applic Cyanocobalamin (Vitamin B12 -) 100 mcg PO DAILY [facility] Last Admin: 06/03/18 10:21 Dose: 100 mcg Epoetin Josemanuel (Procrit -) 10,000 unit IVPUSH ONCE ONE Stop: 06/03/18 12:19 Folic Acid (Folic Acid -) 1 mg PO DAILY [facility] Last Admin: 06/03/18 10:21 Dose: 1 mg Sodium Chloride (Normal Saline -) 250 mls @ 3,000 mls/hr IV PRN PRN PRN Reason: Hypotension during Dialysis Stop: 06/03/18 12:18 Piperacillin Sod/Tazobactam (Sod 2.25 gm/ Dextrose) 50 mls @ 100 mls/hr IVPB Q8H-IV [facility]; Protocol Last Admin: 06/03/18 10:20 Dose: 100 mls/hr Levothyroxine Sodium (Synthroid -) 100 mcg PO DAILY@0700 [facility] Last Admin: 06/03/18 06:46 Dose: 100 mcg Midodrine (Proamatine -) 5 mg PO TID-MID [facility] Last Admin: 06/03/18 14:46 Dose: 5 mg Multivit/Ca Carb/B Cmplx/FA/Prenat (Nephro-Zane -) 1 tablet PO DAILY [facility] Last Admin: 06/03/18 10:21 Dose: 1 tablet - Objective Vital Signs: Vital Signs Temperature 98.0 F 06/03/18 09:00 Pulse Rate 94 H 06/03/18 09:00 Respiratory Rate 18 06/03/18 09:00 Blood Pressure 143/74 06/03/18 09:00 O2 Sat by Pulse Oximetry (%) 100 06/03/18 09:00 Constitutional: Yes: No Distress, Calm Cardiovascular: Yes: Regular Rate and Rhythm Respiratory: Yes: Regular, CTA Bilaterally Gastrointestinal: Yes: Normal Bowel Sounds, Soft, Ascites Musculoskeletal: Yes: WNL Extremities: Yes: WNL Neurological: Yes: Alert, Oriented Psychiatric: Yes: Alert, Oriented Labs: CBC, BMP 06/02/18 05:30 06/02/18 05:30 INR, PTT INR 2.69 (0.83-1.09) H 06/03/18 06:30 Assessment/Plan ASSESSMENT AND PLAN: (1) Hypotension Code(s): I95.9 - HYPOTENSION, UNSPECIFIED (2) ESRD (end stage renal disease) Code(s): N18.6 - END STAGE RENAL DISEASE (3) Ascites Code(s): R18.8 - OTHER ASCITES (4) Supratherapeutic INR Code(s): R79.1 - ABNORMAL COAGULATION PROFILE (5) CAD (coronary artery disease) Code(s): I25.10 - ATHSCL HEART DISEASE OF [place] CORONARY ARTERY W/O ANG PCTRS (6) CHF (congestive heart failure) Code(s): I50.9 - HEART FAILURE, UNSPECIFIED Qualifiers: Heart failure chronicity: acute on chronic (7) Hypothyroid Code(s): E03.9 - HYPOTHYROIDISM, UNSPECIFIED (8) SBP (secondary bacterial peritonitis) Code(s): K65.2 - SPONTANEOUS BACTERIAL PERITONITIS (9) Anxiety -consult psychiatry plan continue abx consider tapping might deescalte abx rest as per the team final plan needs to be made dialysis
--- NOTE | 2018-06-03 16:12 | PN ---
Progress Note, Physician Chief Complaint: Mr Schaeffer is without complaint today. No cp, sob, n/v. - Current Medication List Current Medications: Active Medications Acetaminophen (Tylenol -) 650 mg PO Q4H PRN PRN Reason: HEADACHE Last Admin: 06/02/18 09:35 Dose: 650 mg Albumin Human (Albumin Human 25%) 12.5 gm IVPB Q30M JULIAN Stop: 06/03/18 14:01 Amiodarone HCl (Cordarone -) 200 mg PO DAILY [facility] Last Admin: 06/03/18 10:21 Dose: 200 mg Buspirone HCl (Buspar -) 10 mg PO TID [facility] Last Admin: 06/03/18 14:46 Dose: 10 mg Calcium Carbonate (Os-Merlin 500mg -) 500 mg PO TIDAC [facility] Last Admin: 06/03/18 12:39 Dose: 500 mg Citalopram Hydrobromide (Celexa -) 20 mg PO DAILY [facility] Last Admin: 06/03/18 10:21 Dose: 20 mg Collagenase (Santyl -) 1 applic TP DAILY [facility]; Protocol Last Admin: 06/03/18 10:21 Dose: 1 applic Cyanocobalamin (Vitamin B12 -) 100 mcg PO DAILY [facility] Last Admin: 06/03/18 10:21 Dose: 100 mcg Epoetin Josemanuel (Procrit -) 10,000 unit IVPUSH ONCE ONE Stop: 06/03/18 12:19 Folic Acid (Folic Acid -) 1 mg PO DAILY [facility] Last Admin: 06/03/18 10:21 Dose: 1 mg Sodium Chloride (Normal Saline -) 250 mls @ 3,000 mls/hr IV PRN PRN PRN Reason: Hypotension during Dialysis Stop: 06/03/18 12:18 Piperacillin Sod/Tazobactam (Sod 2.25 gm/ Dextrose) 50 mls @ 100 mls/hr IVPB Q8H-IV [facility]; Protocol Last Admin: 06/03/18 10:20 Dose: 100 mls/hr Levothyroxine Sodium (Synthroid -) 100 mcg PO DAILY@0700 [facility] Last Admin: 06/03/18 06:46 Dose: 100 mcg Midodrine (Proamatine -) 5 mg PO TID-MID [facility] Last Admin: 06/03/18 14:46 Dose: 5 mg Multivit/Ca Carb/B Cmplx/FA/Prenat (Nephro-Zane -) 1 tablet PO DAILY JULIAN Last Admin: 06/03/18 10:21 Dose: 1 tablet - Objective Vital Signs: Vital Signs Temperature 36.5 C 06/03/18 13:40 Pulse Rate 71 06/03/18 13:40 Respiratory Rate 18 06/03/18 13:40 Blood Pressure 122/62 06/03/18 13:40 O2 Sat by Pulse Oximetry (%) 100 06/03/18 09:00 Constitutional: Yes: Well Nourished, No Distress, Calm Cardiovascular: Yes: Regular Rate and Rhythm. No: Gallop, Murmur, Rub Respiratory: Yes: Regular, CTA Bilaterally. No: Rales, Rhonchi, Wheezes Gastrointestinal: Yes: Normal Bowel Sounds, Soft, Distention. No: Tenderness Extremities: Yes: WNL Edema: No Labs: CBC, BMP 06/02/18 05:30 06/02/18 05:30 INR, PTT INR 2.69 (0.83-1.09) H 06/03/18 06:30 Problem List - Problems (1) Hypotension Code(s): I95.9 - HYPOTENSION, UNSPECIFIED (2) ESRD (end stage renal disease) Code(s): N18.6 - END STAGE RENAL DISEASE (3) Ascites Code(s): R18.8 - OTHER ASCITES Qualifiers: Ascites type: other type Qualified Code(s): R18.8 - Other ascites (4) Supratherapeutic INR Code(s): R79.1 - ABNORMAL COAGULATION PROFILE (5) CAD (coronary artery disease) Code(s): I25.10 - ATHSCL HEART DISEASE OF [place] CORONARY ARTERY W/O ANG PCTRS Qualifiers: Coronary Disease-Associated Artery/Lesion type: [place] artery [place] vs. transplanted heart: [place] heart Associated angina: without angina Qualified Code(s): I25.10 - Atherosclerotic heart disease of [place] coronary artery without angina pectoris (6) CHF (congestive heart failure) Code(s): I50.9 - HEART FAILURE, UNSPECIFIED Qualifiers: Heart failure type: unspecified Heart failure chronicity: acute on chronic Qualified Code(s): I50.9 - Heart failure, unspecified (7) Hypothyroid Code(s): E03.9 - HYPOTHYROIDISM, UNSPECIFIED Qualifiers: Hypothyroidism type: unspecified Qualified Code(s): E03.9 - Hypothyroidism , unspecified (8) SBP (spontaneous bacterial peritonitis) Code(s): K65.2 - SPONTANEOUS BACTERIAL PERITONITIS Assessment/Plan (1) Hypotension Assessment/Plan: -currently resolved -off all antihypertensives -will transfuse 2 units since also hypotensive -attempt to stop midodrine if possible Code(s): I95.9 - HYPOTENSION, UNSPECIFIED (2) ESRD (end stage renal disease) Assessment/Plan: -cont HD per nephrology recommendations Code(s): N18.6 - END STAGE RENAL DISEASE (3) Ascites Assessment/Plan: -continue zosyn for possible infected ascites -may benefit from paracentesis on Tuesday Code(s): R18.8 - OTHER ASCITES (4) Supratherapeutic INR Assessment/Plan: -hematology consulted and appreciate assistance Code(s): R79.1 - ABNORMAL COAGULATION PROFILE (5) CAD (coronary artery disease) Assessment/Plan: -cardiology following -ECHO reviewed -holding coreg secondary to hypotension Code(s): I25.10 - ATHSCL HEART DISEASE OF [place] CORONARY ARTERY W/O ANG PCTRS (6) CHF (congestive heart failure) Assessment/Plan: -treating with HD Code(s): I50.9 - HEART FAILURE, UNSPECIFIED Qualifiers: Heart failure chronicity: acute on chronic (7) Hypothyroid Assessment/Plan: -continue synthroid Code(s): E03.9 - HYPOTHYROIDISM, UNSPECIFIED (8) SBP (secondary bacterial peritonitis) Assessment/Plan: -with loculated ascites -as above Code(s): K65.2 - SPONTANEOUS BACTERIAL PERITONITIS (9) Anxiety -appreciate psychiatry assistance -started on buspar -patient feels control is improved with starting buspar (10) Anemia -anemia of chronic disease -normally would transfuse below 7 -but since with lower blood pressures patient will benefit from transfusion -transfuse with HD
--- NOTE | 2018-06-03 16:41 | PN ---
Progress Note, Physician History of Present Illness: Reviewed available records from [facility]; orthopedic op note is present, gen surg op notes are not. In April, pt sustained R intertrochanteric fracture and had ORIF with gamma nail on 04/25/18. 04/27, he was febrile with change in mental status, R side weakness, but CT showed no clear evidence of stroke. He then became hypotensive with declining mental status and was intubated. Antibiotics and pressors were started for presumed septic shock. CT C/A/P showed pneumatosis of bowel, and 04/28 am, he went to OR for bowel resection. 55cm jejunum was removed (separately), and extended right hemicolectomy also performed (including terminal ileum, appendix, cecum, right colon, transverse colon), and ABTHERA (abdominal VAC dressing) was placed. He was returned to OR 04/30 for abdominal washout, resection and redo of SB anastomosis (presumed from pathology report), with ileocolic anastomosis and abdominal closure. He was extubated 05/01 and pressors weaned. Interrogation of his AICD showed 2 shocks back on 04/27 for tachycardia. Eliquis was started for presumed thromboembolic cause of bowel ischemia and questionable TIA/CVA. He was discharged to rehab 05/08. He was readmitted after a fall ?syncope 05/12, was transfused during HD for anemia, and discharged to rehab 05/17. At 05/22 dialysis, he c/o nausea and SOB and HD was terminated prematurely; he was sent back to ED, and readmitted 05/23-05/29/18. PE was ruled out, and echo showed moderate global hypokinesis. CT 05/23 also showed large volume ascites with few bubbles of air in LUQ. "Right outer abdomen" paracentesis was performed, with 60ml sent for culture/analysis (grew Klebsiella), and 700ml seropurulent fluid removed. Ceftriaxone was given. Hypotension was addressed by stopping his antihypertensive medication and starting midodrine. PO Cipro/Flagyl was recommended at d/c to rehab again 05/29, for 14 days. "Case discussed with surgery who state methylene blue test is not possible to evaluate for possible anastomotic leak at this time as patient does not have any drain in place." CT with oral contrast later in the day after paracentesis 05/24 showed no evidence of extravasation. He remained stable, comfortable and without distress or fever. Spoke with surgical manager Marycarmen at [facility] by phone, who will try to send the missing operative notes. Time spent on floor and phone with [facility], 45 minutes. Patient is off floor for hemodialysis and is not examined at this time. No acute events or change in status by report. Pt has been on diet. - Current Medication List Current Medications: Active Medications Acetaminophen (Tylenol -) 650 mg PO Q4H PRN PRN Reason: HEADACHE Last Admin: 06/02/18 09:35 Dose: 650 mg Albumin Human (Albumin Human 25%) 12.5 gm IVPB Q30M JULIAN Stop: 06/03/18 14:01 Amiodarone HCl (Cordarone -) 200 mg PO DAILY [facility] Last Admin: 06/03/18 10:21 Dose: 200 mg Buspirone HCl (Buspar -) 10 mg PO TID [facility] Last Admin: 06/03/18 14:46 Dose: 10 mg Calcium Carbonate (Os-Merlin 500mg -) 500 mg PO TIDAC [facility] Last Admin: 06/03/18 12:39 Dose: 500 mg Citalopram Hydrobromide (Celexa -) 20 mg PO DAILY [facility] Last Admin: 06/03/18 10:21 Dose: 20 mg Collagenase (Santyl -) 1 applic TP DAILY [facility]; Protocol Last Admin: 06/03/18 10:21 Dose: 1 applic Cyanocobalamin (Vitamin B12 -) 100 mcg PO DAILY [facility] Last Admin: 06/03/18 10:21 Dose: 100 mcg Epoetin Josemanuel (Procrit -) 10,000 unit IVPUSH ONCE ONE Stop: 06/03/18 12:19 Folic Acid (Folic Acid -) 1 mg PO DAILY [facility] Last Admin: 06/03/18 10:21 Dose: 1 mg Sodium Chloride (Normal Saline -) 250 mls @ 3,000 mls/hr IV PRN PRN PRN Reason: Hypotension during Dialysis Stop: 06/03/18 12:18 Piperacillin Sod/Tazobactam (Sod 2.25 gm/ Dextrose) 50 mls @ 100 mls/hr IVPB Q8H-IV JULIAN; Protocol Last Admin: 06/03/18 10:20 Dose: 100 mls/hr Levothyroxine Sodium (Synthroid -) 100 mcg PO DAILY@0700 [facility] Last Admin: 06/03/18 06:46 Dose: 100 mcg Midodrine (Proamatine -) 5 mg PO TID-MID [facility] Last Admin: 06/03/18 14:46 Dose: 5 mg Multivit/Ca Carb/B Cmplx/FA/Prenat (Nephro-Zane -) 1 tablet PO DAILY [facility] Last Admin: 06/03/18 10:21 Dose: 1 tablet - Objective Vital Signs: Vital Signs Temperature 97.7 F 06/03/18 13:40 Pulse Rate 71 06/03/18 13:40 Respiratory Rate 18 06/03/18 13:40 Blood Pressure 122/62 06/03/18 13:40 O2 Sat by Pulse Oximetry (%) 100 06/03/18 09:00 Labs: no new labs yet before HD except INR, PTT INR 2.69 (0.83-1.09) H 06/03/18 06:30 Problem List - Problems (1) Ascites Assessment/Plan: s/p SB resection and R extended hemicolectomy with return to OR for washout, additional small resection and closure CT findings by report very similar to those noted 05/23/18 s/p paracentesis 05/24/18 with growth of Klebsiella and abx treatment pt currently on Zosyn per ID ascites may be related to CHF, passive liver congestion? had bacterial growth 10d ago, but no contrast extravasation on CT, no wbc, no fevers - no evidence of bowel leak, tends to argue against active infectious process may be reasonable to retap fluid from LUQ for culture, possibly pelvis as well, if loculated, but would limit drainage to ~2L no acute surgical intervention indicated at this time discussed with Dr. Pink Code(s): R18.8 - OTHER ASCITES Qualifiers: Ascites type: other type Qualified Code(s): R18.8 - Other ascites (2) S/P partial colectomy Code(s): Z90.49 - ACQUIRED ABSENCE OF OTHER SPECIFIED PARTS OF DIGESTIVE TRACT (3) S/P small bowel resection Code(s): Z90.49 - ACQUIRED ABSENCE OF OTHER SPECIFIED PARTS OF DIGESTIVE TRACT (4) Supratherapeutic INR Code(s): R79.1 - ABNORMAL COAGULATION PROFILE (5) CAD (coronary artery disease) Code(s): I25.10 - ATHSCL HEART DISEASE OF [place] CORONARY ARTERY W/O ANG PCTRS Qualifiers: Coronary Disease-Associated Artery/Lesion type: [place] artery [place] vs. transplanted heart: [place] heart Associated angina: without angina Qualified Code(s): I25.10 - Atherosclerotic heart disease of [place] coronary artery without angina pectoris (6) CHF (congestive heart failure) Code(s): I50.9 - HEART FAILURE, UNSPECIFIED Qualifiers: Heart failure type: unspecified Heart failure chronicity: acute on chronic Qualified Code(s): I50.9 - Heart failure, unspecified (7) ESRD (end stage renal disease) Code(s): N18.6 - END STAGE RENAL DISEASE (8) Hypothyroid Code(s): E03.9 - HYPOTHYROIDISM, UNSPECIFIED Qualifiers: Hypothyroidism type: unspecified Qualified Code(s): E03.9 - Hypothyroidism , unspecified
[2018-06-03 17:20] LABS: HEMATOCRIT 22.5 % (35.4-49); HEMOGLOBIN 7.1 GM/dL (11.7-16.9); MCH 28.7 pg (25.7-33.7); MCHC 31.7 g/dl (32.0-35.9); MEAN CELL VOLUME 90.7 fl (80-96); MEAN PLT VOLUME 8.1 fl (7.5-11.1); PLATELET COUNT 222 K/MM3 (134-434); RBC 2.48 M/mm3 (4.00-5.60); RDW 18.8 % (11.9-15.9)
[2018-06-03 17:43] LABS: ANION GAP 11 MMOL/L (8-16); BLOOD UREA NITROGEN 36 mg/dL (7-18); CALCIUM 7.4 mg/dL (8.5-10.1); CHLORIDE 100 mmol/L (98-107); CO2 27 mmol/L (21-32); CREATININE 4.7 mg/dL (0.55-1.3); GLUCOSE,RANDOM 203 mg/dL (74-106); POTASSIUM 4.2 mmol/L (3.5-5.1); SODIUM 138 mmol/L (136-145)
[2018-06-03] MEDS ORDERED: EPOETIN ALFA 10,000 UNIT/1 ML VIAL IVPUSH ONE (18:15)
[2018-06-03] MEDS: ALBUMIN HUMAN 25% 12.5 GM/50 ML VIAL IVPB SCH ×4 (18:15→19:45)
[2018-06-03 21:23] LABS: HEMATOCRIT 23.5 % (35.4-49); HEMOGLOBIN 7.5 GM/dL (11.7-16.9); MCH 28.8 pg (25.7-33.7); MEAN CELL VOLUME 89.9 fl (80-96); MEAN PLT VOLUME 7.9 fl (7.5-11.1); PLATELET COUNT 200 K/MM3 (134-434); RBC 2.62 M/mm3 (4.00-5.60); RDW 18.7 % (11.9-15.9); WHITE BLOOD COUNT 9.9 K/mm3 (4.0-10.0)
[2018-06-03] MEDS: ACETAMINOPHEN 325 MG TABLET (FP) PO PRN (22:07)
[2018-06-04] MEDS ORDERED: PIPERACILLIN/TAZOBACTAM 2.25 GM VIAL IVPB ONE ×3 (02:07→12:51)
[2018-06-04] MEDS ORDERED: DEXTROSE 5%-WATER - 50 ML IVPB ONE ×3 (02:08→12:51)
[2018-06-04] MEDS: PIPERACILLIN/TAZOB 2.25 GM 2.25 GM in DEXTROSE 5%-WATER - 50 ML IVPB SCH ×3 (02:24→17:07)
[2018-06-04] MEDS: LEVOTHYROXINE NA 100 MCG TABLET (FP) PO SCH (06:45)
[2018-06-04] MEDS: CALCIUM (OYSTER SHELL) 500 MG TABLET (FP) PO SCH ×3 (06:45→16:48)
[2018-06-04] MEDS: busPIRone HCL 10 MG TABLET (FP) PO SCH ×3 (06:45→21:12)
[2018-06-04 07:49] LABS: BASO % 0.4 % (0-2.0); EOS % 0.8 % (0-4.5); HEMATOCRIT 27.4 % (35.4-49); HEMOGLOBIN 8.2 GM/dL (11.7-16.9); LYMPH % 8.9 % (8-40); MCH 27.8 pg (25.7-33.7); MCHC 29.9 g/dl (32.0-35.9); MEAN PLT VOLUME 8.3 fl (7.5-11.1); MONO % 6.6 % (3.8-10.2); NEUT % 83.3 % (42.8-82.8); PLATELET COUNT 181 K/MM3 (134-434); RBC 2.95 M/mm3 (4.00-5.60); RDW 18.8 % (11.9-15.9); WHITE BLOOD COUNT 9.2 K/mm3 (4.0-10.0)
[2018-06-04 08:12] LABS: INR 1.98 (0.83-1.09); PROTHROMBIN TIME (PATIENT) 23.5 SEC (9.7-13.0)
[2018-06-04 08:27] LABS: ANION GAP 8 MMOL/L (8-16); BLOOD UREA NITROGEN 20 mg/dL (7-18); CALCIUM 7.6 mg/dL (8.5-10.1); CHLORIDE 100 mmol/L (98-107); CO2 29 mmol/L (21-32); CREATININE 3.1 mg/dL (0.55-1.3); GLUCOSE,RANDOM 166 mg/dL (74-106); MAGNESIUM 1.9 mg/dL (1.8-2.4); PHOSPHOROUS 2.4 mg/dL (2.5-4.9); POTASSIUM 3.7 mmol/L (3.5-5.1); SODIUM 138 mmol/L (136-145)
[2018-06-04] MEDS ORDERED: PT OWN MED DRAWER 7, Y5N ONE ×3 (08:50→21:04)
[2018-06-04] MEDS: VITAMIN B COMP W-C 1 EA TABLET PO SCH (09:21)
[2018-06-04] MEDS: CITALOPRAM HYDROBROMIDE 20 MG TABLET (FP) PO SCH (09:21)
[2018-06-04] MEDS: CYANOCOBALAMIN (VITAMIN B-12) 100 MCG TABLET PO SCH (09:21)
[2018-06-04] MEDS: AMIODARONE HCL 200 MG TABLET (FP) PO SCH (09:21)
[2018-06-04] MEDS: MIDODRINE HCL 5 MG TABLET PO SCH ×3 (09:22→17:06)
[2018-06-04] MEDS: FOLIC ACID 1 MG TABLET (FP) PO SCH (09:22)
[2018-06-04] MEDS: COLLAGENASE CLOSTRIDIUM HIST. 30 GRAMS TUBE TP SCH (09:29)
--- NOTE | 2018-06-04 10:48 | PN ---
Progress Note (short form) - Note Progress Note: s: no cp sob palps dizzy o: Vital Signs Period Temp Pulse Resp BP Sys/Emery Pulse Ox Last 24 Hr 97.2 F-98.0 F 64-77 18-20 97-126/48-67 98-100 Constitutional: Yes: Well Nourished, No Distress, Calm Eyes: Yes: Conjunctiva Clear, EOM Intact HENT: Yes: Atraumatic, Normocephalic Neck: Yes: Supple, Trachea Midline Respiratory: Yes: Regular, Rales (bases bilaterally) Gastrointestinal: Yes: Normal Bowel Sounds, Soft Cardiovascular: Yes: Regular Rate and Rhythm JVD: No Carotid Bruit: No PMI: Non-Displaced Heart Sounds: Yes: S1, S2 Musculoskeletal: No: Back Pain Extremities: No: Cold Edema: trace Peripheral Pulses: 2+ Left Doralis Pedis, 2+ Right Dorsalis Pedis Integumentary: No: Jaundice Neurological: Yes: Alert, Oriented - Other Data Labs, Other Data: Current Medications Generic Name Dose Route Start Last Admin Trade Name Lois PRN Reason Stop Dose Admin Acetaminophen 650 mg 06/02/18 08:58 06/03/18 22:07 Tylenol - PO 650 mg Q4H PRN Administration HEADACHE Amiodarone HCl 200 mg 06/01/18 11:21 06/04/18 09:21 Cordarone - PO 200 mg DAILY JULIAN Administration Buspirone HCl 10 mg 06/03/18 14:00 06/04/18 06:45 Buspar - PO 10 mg TID JULIAN Administration Calcium Carbonate 500 mg 06/01/18 16:30 06/04/18 10:42 Os-Merlin 500mg - PO 500 mg TIDAC JULIAN Administration Citalopram Hydrobromide 20 mg 06/01/18 13:15 06/04/18 09:21 Celexa - PO 20 mg DAILY JULIAN Administration Collagenase 1 applic 06/01/18 17:15 06/04/18 09:29 Santyl - TP 1 applic DAILY JULIAN Administration Protocol Cyanocobalamin 100 mcg 06/01/18 13:15 06/04/18 09:21 Vitamin B12 - PO 100 mcg DAILY JULIAN Administration Folic Acid 1 mg 06/01/18 13:15 06/04/18 09:22 Folic Acid - PO 1 mg DAILY [facility]ULIAN Administration Piperacillin Sod/Tazobactam 50 mls @ 100 mls/hr 06/02/18 18:00 06/04/18 09:21 Sod 2.25 gm/ Dextrose IVPB 100 mls/hr Q8H-IV JULIAN Administration Protocol Levothyroxine Sodium 100 mcg 06/02/18 07:00 06/04/18 06:45 Synthroid - PO 100 mcg DAILY@0700 JULIAN Administration Midodrine 5 mg 06/01/18 14:00 06/04/18 09:22 Proamatine - PO 5 mg TID-MID JULIAN Administration Multivit/Ca Carb/B Cmplx/FA/Prenat 1 tablet 06/01/18 13:30 06/04/18 09:21 Nephro-Zane - PO 1 tablet DAILY JULIAN Administration CBC, BMP 06/04/18 06:30 06/04/18 06:30 Assessment/Plan echo 05/2018 nl LV size, mildly reduced function EF 45-50%, mild global hypokinesis of LV, nl RV, ppm lead in RV and RA, tr TR EKG: sinus, prolonged QTC, old septal infarct tele: sr Shortness of breath - trop neg x 3 - BNP elevated however unclear significance in patient with ESRD with known HF, however does have edema, rales on exam - also with COPD hx, on chronic O2 - after hd pt feeling better, no sob acute on chronic systolic HF - mildly reduced EF on echo - appeared volume up as above on admit - volume management per renal-->pt feeling better after hd - not on DELANO/BB due to low BP Prolonged QTc - avoid QT prolonging agents - maintain K >4, Mg >2 s/p ICD ([employer]) - outpatient follow up, Dr. Stover - recent device checks unremarkable per patient hypotension - continue midodrine ESRD on HD - renal consulted CAD, s/p CABG - cont statin - holding aspirin, elevated INR and anemia mesenteric ischemia - recent dx, s/p surgery during recent admission for hip fx, was started on eliquis - holding eliquis due to elevated INR and anemia anemia - manage per primary
--- NOTE | 2018-06-04 13:20 | PN ---
Progress Note, Physician History of Present Illness: patient stable doing well no complaints - Current Medication List Current Medications: Active Medications Acetaminophen (Tylenol -) 650 mg PO Q4H PRN PRN Reason: HEADACHE Last Admin: 06/03/18 22:07 Dose: 650 mg Amiodarone HCl (Cordarone -) 200 mg PO DAILY [facility] Last Admin: 06/04/18 09:21 Dose: 200 mg Buspirone HCl (Buspar -) 10 mg PO TID [facility] Last Admin: 06/04/18 13:09 Dose: 10 mg Calcium Carbonate (Os-Merlin 500mg -) 500 mg PO TIDAC [facility] Last Admin: 06/04/18 10:42 Dose: 500 mg Citalopram Hydrobromide (Celexa -) 20 mg PO DAILY [facility] Last Admin: 06/04/18 09:21 Dose: 20 mg Collagenase (Santyl -) 1 applic TP DAILY [facility]; Protocol Last Admin: 06/04/18 09:29 Dose: 1 applic Cyanocobalamin (Vitamin B12 -) 100 mcg PO DAILY [facility] Last Admin: 06/04/18 09:21 Dose: 100 mcg Folic Acid (Folic Acid -) 1 mg PO DAILY [facility] Last Admin: 06/04/18 09:22 Dose: 1 mg Piperacillin Sod/Tazobactam (Sod 2.25 gm/ Dextrose) 50 mls @ 100 mls/hr IVPB Q8H-IV [facility]; Protocol Last Admin: 06/04/18 09:21 Dose: 100 mls/hr Levothyroxine Sodium (Synthroid -) 100 mcg PO DAILY@0700 [facility] Last Admin: 06/04/18 06:45 Dose: 100 mcg Midodrine (Proamatine -) 5 mg PO TID-MID [facility] Last Admin: 06/04/18 13:09 Dose: 5 mg Multivit/Ca Carb/B Cmplx/FA/Prenat (Nephro-Zane -) 1 tablet PO DAILY [facility] Last Admin: 06/04/18 09:21 Dose: 1 tablet - Objective Vital Signs: Vital Signs Temperature 97.7 F 06/04/18 10:00 Pulse Rate 64 06/04/18 10:00 Respiratory Rate 20 06/04/18 10:00 Blood Pressure 110/57 L 06/04/18 10:00 O2 Sat by Pulse Oximetry (%) 100 06/04/18 09:00 Constitutional: Yes: No Distress, Calm Cardiovascular: Yes: S1, S2 Respiratory: Yes: Regular, CTA Bilaterally Gastrointestinal: Yes: Normal Bowel Sounds, Soft, Ascites Musculoskeletal: Yes: WNL Extremities: Yes: Other (b/l heel ulcers) Wound/Incision: Yes: Dressing Dry and Intact Neurological: Yes: Alert, Oriented Psychiatric: Yes: Alert, Oriented Labs: CBC, BMP 06/04/18 06:30 06/04/18 06:30 INR, PTT INR 1.98 (0.83-1.09) H 06/04/18 06:30 Assessment/Plan ASSESSMENT AND PLAN: (1) Hypotension Code(s): I95.9 - HYPOTENSION, UNSPECIFIED (2) ESRD (end stage renal disease) Code(s): N18.6 - END STAGE RENAL DISEASE (3) Ascites Code(s): R18.8 - OTHER ASCITES (4) Supratherapeutic INR Code(s): R79.1 - ABNORMAL COAGULATION PROFILE (5) CAD (coronary artery disease) Code(s): I25.10 - ATHSCL HEART DISEASE OF [place] CORONARY ARTERY W/O ANG PCTRS (6) CHF (congestive heart failure) Code(s): I50.9 - HEART FAILURE, UNSPECIFIED Qualifiers: Heart failure chronicity: acute on chronic (7) Hypothyroid Code(s): E03.9 - HYPOTHYROIDISM, UNSPECIFIED (8) SBP (secondary bacterial peritonitis) Code(s): K65.2 - SPONTANEOUS BACTERIAL PERITONITIS (9) Anxiety -consult psychiatry plan continue abx wound care final plan awaited rest as per the team
--- NOTE | 2018-06-04 13:22 | PN ---
Progress Note, Physician Chief Complaint: Mr Schaeffer is without complaint today. No cp, sob, n/v. - Current Medication List Current Medications: Active Medications Acetaminophen (Tylenol -) 650 mg PO Q4H PRN PRN Reason: HEADACHE Last Admin: 06/03/18 22:07 Dose: 650 mg Amiodarone HCl (Cordarone -) 200 mg PO DAILY [facility] Last Admin: 06/04/18 09:21 Dose: 200 mg Buspirone HCl (Buspar -) 10 mg PO TID [facility] Last Admin: 06/04/18 13:09 Dose: 10 mg Calcium Carbonate (Os-Merlin 500mg -) 500 mg PO TIDAC [facility] Last Admin: 06/04/18 10:42 Dose: 500 mg Citalopram Hydrobromide (Celexa -) 20 mg PO DAILY [facility] Last Admin: 06/04/18 09:21 Dose: 20 mg Collagenase (Santyl -) 1 applic TP DAILY [facility]; Protocol Last Admin: 06/04/18 09:29 Dose: 1 applic Cyanocobalamin (Vitamin B12 -) 100 mcg PO DAILY [facility] Last Admin: 06/04/18 09:21 Dose: 100 mcg Folic Acid (Folic Acid -) 1 mg PO DAILY [facility] Last Admin: 06/04/18 09:22 Dose: 1 mg Piperacillin Sod/Tazobactam (Sod 2.25 gm/ Dextrose) 50 mls @ 100 mls/hr IVPB Q8H-IV [facility]; Protocol Last Admin: 06/04/18 09:21 Dose: 100 mls/hr Levothyroxine Sodium (Synthroid -) 100 mcg PO DAILY@0700 [facility] Last Admin: 06/04/18 06:45 Dose: 100 mcg Midodrine (Proamatine -) 5 mg PO TID-MID [facility] Last Admin: 06/04/18 13:09 Dose: 5 mg Multivit/Ca Carb/B Cmplx/FA/Prenat (Nephro-Zane -) 1 tablet PO DAILY [facility] Last Admin: 06/04/18 09:21 Dose: 1 tablet - Objective Vital Signs: Vital Signs Temperature 36.5 C 06/04/18 10:00 Pulse Rate 64 06/04/18 10:00 Respiratory Rate 20 06/04/18 10:00 Blood Pressure 110/57 L 06/04/18 10:00 O2 Sat by Pulse Oximetry (%) 100 06/04/18 09:00 Constitutional: Yes: Well Nourished, No Distress, Calm Cardiovascular: Yes: Regular Rate and Rhythm. No: Gallop, Murmur, Rub Respiratory: Yes: Regular, CTA Bilaterally. No: Rales, Rhonchi, Wheezes Gastrointestinal: Yes: Normal Bowel Sounds, Soft, Ascites, Distention. No: Tenderness Extremities: Yes: WNL Edema: No Labs: CBC, BMP 06/04/18 06:30 06/04/18 06:30 INR, PTT INR 1.98 (0.83-1.09) H 06/04/18 06:30 Problem List - Problems (1) Hypotension Code(s): I95.9 - HYPOTENSION, UNSPECIFIED (2) ESRD (end stage renal disease) Code(s): N18.6 - END STAGE RENAL DISEASE (3) Ascites Code(s): R18.8 - OTHER ASCITES Qualifiers: Ascites type: other type Qualified Code(s): R18.8 - Other ascites (4) Supratherapeutic INR Code(s): R79.1 - ABNORMAL COAGULATION PROFILE (5) CAD (coronary artery disease) Code(s): I25.10 - ATHSCL HEART DISEASE OF [place] CORONARY ARTERY W/O ANG PCTRS Qualifiers: Coronary Disease-Associated Artery/Lesion type: [place] artery [place] vs. transplanted heart: [place] heart Associated angina: without angina Qualified Code(s): I25.10 - Atherosclerotic heart disease of [place] coronary artery without angina pectoris (6) CHF (congestive heart failure) Code(s): I50.9 - HEART FAILURE, UNSPECIFIED Qualifiers: Heart failure type: unspecified Heart failure chronicity: acute on chronic Qualified Code(s): I50.9 - Heart failure, unspecified (7) Hypothyroid Code(s): E03.9 - HYPOTHYROIDISM, UNSPECIFIED Qualifiers: Hypothyroidism type: unspecified Qualified Code(s): E03.9 - Hypothyroidism , unspecified (8) SBP (spontaneous bacterial peritonitis) Code(s): K65.2 - SPONTANEOUS BACTERIAL PERITONITIS Assessment/Plan (1) Hypotension Assessment/Plan: -currently resolved -off all antihypertensives -transfuse 2 units with HD since hypotensive -does not need urgently but suspect blood pressure would benefit from transfusion Code(s): I95.9 - HYPOTENSION, UNSPECIFIED (2) ESRD (end stage renal disease) Assessment/Plan: -cont HD per nephrology recommendations Code(s): N18.6 - END STAGE RENAL DISEASE (3) Ascites Assessment/Plan: -continue zosyn for possible infected ascites -may benefit from paracentesis on Tuesday -will d/w ID Code(s): R18.8 - OTHER ASCITES (4) Supratherapeutic INR Assessment/Plan: -hematology consulted and appreciate assistance Code(s): R79.1 - ABNORMAL COAGULATION PROFILE (5) CAD (coronary artery disease) Assessment/Plan: -cardiology following -ECHO reviewed -holding coreg secondary to hypotension Code(s): I25.10 - ATHSCL HEART DISEASE OF [place] CORONARY ARTERY W/O ANG PCTRS (6) CHF (congestive heart failure) Assessment/Plan: -treating with HD Code(s): I50.9 - HEART FAILURE, UNSPECIFIED Qualifiers: Heart failure chronicity: acute on chronic (7) Hypothyroid Assessment/Plan: -continue synthroid Code(s): E03.9 - HYPOTHYROIDISM, UNSPECIFIED (8) SBP (secondary bacterial peritonitis) Assessment/Plan: -with loculated ascites -as above Code(s): K65.2 - SPONTANEOUS BACTERIAL PERITONITIS (9) Anxiety -appreciate psychiatry assistance -started on buspar -patient feels control is improved with starting buspar (10) Anemia -anemia of chronic disease -normally would transfuse below 7 -but since with lower blood pressures patient will benefit from transfusion -transfuse with HD
--- NOTE | 2018-06-04 13:44 | PN ---
Progress Note (short form) - Note Progress Note: RENAL Pt is awake and alert says he has not felt better since falling Last Vital Signs Temp Pulse Resp BP Pulse Ox 97.7 F 64 20 110/57 L 100 06/04/18 10:00 06/04/18 10:00 06/04/18 10:00 06/04/18 10:00 06/04/18 09:00 lungs clear cvs s1s2 rr abd soft, some areas of fullness ext no edema neuro a+ox3 no tremors CBC, BMP 06/04/18 06:30 06/04/18 06:30 Current Medications Generic Name Dose Route Start Last Admin Trade Name Freq PRN Reason Stop Dose Admin Acetaminophen 650 mg 06/02/18 08:58 06/03/18 22:07 Tylenol - PO 650 mg Q4H PRN Administration HEADACHE Amiodarone HCl 200 mg 06/01/18 11:21 06/04/18 09:21 Cordarone - PO 200 mg DAILY JULIAN Administration Buspirone HCl 10 mg 06/03/18 14:00 06/04/18 13:09 Buspar - PO 10 mg TID JULIAN Administration Calcium Carbonate 500 mg 06/01/18 16:30 06/04/18 10:42 Os-Merlin 500mg - PO 500 mg TIDAC JULIAN Administration Citalopram Hydrobromide 20 mg 06/01/18 13:15 06/04/18 09:21 Celexa - PO 20 mg DAILY JULIAN Administration Collagenase 1 applic 06/01/18 17:15 06/04/18 09:29 Santyl - TP 1 applic DAILY JULIAN Administration Protocol Cyanocobalamin 100 mcg 06/01/18 13:15 06/04/18 09:21 Vitamin B12 - PO 100 mcg DAILY JULIAN Administration Folic Acid 1 mg 06/01/18 13:15 06/04/18 09:22 Folic Acid - PO 1 mg DAILY JULIAN Administration Piperacillin Sod/Tazobactam 50 mls @ 100 mls/hr 06/02/18 18:00 06/04/18 09:21 Sod 2.25 gm/ Dextrose IVPB 100 mls/hr Q8H-IV JULIAN Administration Protocol Levothyroxine Sodium 100 mcg 06/02/18 07:00 06/04/18 06:45 Synthroid - PO 100 mcg DAILY@0700 JULIAN Administration Midodrine 5 mg 06/01/18 14:00 06/04/18 13:09 Proamatine - PO 5 mg TID-MID JULIAN Administration Multivit/Ca Carb/B Cmplx/FA/Prenat 1 tablet 06/01/18 13:30 06/04/18 09:21 Nephro-Zane - PO 1 tablet DAILY JULIAN Administration Impression 1. ESRD 2. CAD 3. CABG 4. COPD 5. CHF 6. SBP 7. DVT 8. hx mesinteric ischemia 9. hypothyroidism uncontrolled 10. gout 11. hld 12. pleural effusion 13. anemia 14 AICD Plan -surgical follow up -will need a fistula which will make it easier for him to get into a dialysis unit locally -fluid restriction -ascites fluid aspiration for SAAG do not give calcium with food since his phos is low MV
--- NOTE | 2018-06-04 17:06 | PN ---
Progress Note, Physician History of Present Illness: Reviewed available records from [facility]; orthopedic op note is present, gen surg op notes are not. See summary of events in yesterday's note. Also spoke with surgical scheduler Marycarmen at [facility] by phone, who will try to send the missing operative notes. Nothing has been received by fax since. Patient is seen and examined in bed, daughter at bedside. He states he is feeling the best he has in a while. No GI complaints. Tolerating diet but not eating too much. No abdominal pain. Had some diarrhea, probably still from oral contrast. He has not been up much or had much PT for a while now, but would like to get up more. - Current Medication List Current Medications: Active Medications Acetaminophen (Tylenol -) 650 mg PO Q4H PRN PRN Reason: HEADACHE Last Admin: 06/03/18 22:07 Dose: 650 mg Amiodarone HCl (Cordarone -) 200 mg PO DAILY [facility] Last Admin: 06/04/18 09:21 Dose: 200 mg Buspirone HCl (Buspar -) 10 mg PO TID [facility] Last Admin: 06/04/18 13:09 Dose: 10 mg Calcium Carbonate (Os-Merlin 500mg -) 500 mg PO TIDAC [facility] Last Admin: 06/04/18 16:48 Dose: 500 mg Citalopram Hydrobromide (Celexa -) 20 mg PO DAILY [facility] Last Admin: 06/04/18 09:21 Dose: 20 mg Collagenase (Santyl -) 1 applic TP DAILY [facility]; Protocol Last Admin: 06/04/18 09:29 Dose: 1 applic Cyanocobalamin (Vitamin B12 -) 100 mcg PO DAILY [facility] Last Admin: 06/04/18 09:21 Dose: 100 mcg Folic Acid (Folic Acid -) 1 mg PO DAILY [facility] Last Admin: 06/04/18 09:22 Dose: 1 mg Piperacillin Sod/Tazobactam (Sod 2.25 gm/ Dextrose) 50 mls @ 100 mls/hr IVPB Q8H-IV [facility]; Protocol Last Admin: 06/04/18 09:21 Dose: 100 mls/hr Levothyroxine Sodium (Synthroid -) 100 mcg PO DAILY@0600 [facility] Midodrine (Proamatine -) 5 mg PO TID-MID [facility] Last Admin: 06/04/18 13:09 Dose: 5 mg Multivit/Ca Carb/B Cmplx/FA/Prenat (Nephro-Zane -) 1 tablet PO DAILY JULIAN Last Admin: 06/04/18 09:21 Dose: 1 tablet - Objective Vital Signs: Vital Signs Temperature 99.2 F 06/04/18 14:31 Pulse Rate 71 06/04/18 14:31 Respiratory Rate 20 06/04/18 14:31 Blood Pressure 109/46 L 06/04/18 14:31 O2 Sat by Pulse Oximetry (%) 100 06/04/18 09:00 Constitutional: Yes: Well Nourished, No Distress, Calm Eyes: Yes: Conjunctiva Clear, EOM Intact HENT: Yes: Atraumatic, Normocephalic Respiratory: Yes: Regular, On Nasal O2 Gastrointestinal: Yes: Soft, Ascites, Distention. No: Tenderness Extremities: No: Cool, Cyanosis Integumentary: Yes: Incision (healing midline). No: Jaundice, Rash Wound/Incision: Yes: Clean/Dry, Well Approximated, Open to air Neurological: Yes: Alert, Oriented Labs: CBC, BMP 06/04/18 06:30 06/04/18 06:30 INR, PTT INR 1.98 (0.83-1.09) H 06/04/18 06:30 INR down further, not quite normal yet Hb over 8 Problem List - Problems (1) Ascites Assessment/Plan: s/p SB resection and R extended hemicolectomy with return to OR for washout, additional small resection and closure CT findings by report very similar to those noted 05/23/18 s/p paracentesis 05/24/18 with growth of Klebsiella and abx treatment pt currently on Zosyn per ID ascites may be related to CHF, passive liver congestion? had bacterial growth 10d ago, but no contrast extravasation on CT, no wbc, no fevers - no evidence of bowel leak, tends to argue against active infectious process may be reasonable to retap fluid from LUQ for culture, possibly pelvis as well, if loculated, but would limit drainage to ~2L no acute surgical intervention indicated at this time will try to reach medical records at [facility] tomorrow for missing operative notes daughter may try to obtain CD with CT scans from there for comparison here Code(s): R18.8 - OTHER ASCITES Qualifiers: Ascites type: other type Qualified Code(s): R18.8 - Other ascites (2) S/P partial colectomy Code(s): Z90.49 - ACQUIRED ABSENCE OF OTHER SPECIFIED PARTS OF DIGESTIVE TRACT (3) S/P small bowel resection Code(s): Z90.49 - ACQUIRED ABSENCE OF OTHER SPECIFIED PARTS OF DIGESTIVE TRACT (4) Supratherapeutic INR Code(s): R79.1 - ABNORMAL COAGULATION PROFILE (5) CAD (coronary artery disease) Code(s): I25.10 - ATHSCL HEART DISEASE OF [id number] CORONARY ARTERY W/O ANG PCTRS Qualifiers: Coronary Disease-Associated Artery/Lesion type: [place] artery [place] vs. transplanted heart: [place] heart Associated angina: without angina Qualified Code(s): I25.10 - Atherosclerotic heart disease of [place] coronary artery without angina pectoris (6) CHF (congestive heart failure) Code(s): I50.9 - HEART FAILURE, UNSPECIFIED Qualifiers: Heart failure type: unspecified Heart failure chronicity: acute on chronic Qualified Code(s): I50.9 - Heart failure, unspecified (7) ESRD (end stage renal disease) Code(s): N18.6 - END STAGE RENAL DISEASE (8) Hypothyroid Code(s): E03.9 - HYPOTHYROIDISM, UNSPECIFIED Qualifiers: Hypothyroidism type: unspecified Qualified Code(s): E03.9 - Hypothyroidism , unspecified
[2018-06-05] MEDS ORDERED: DEXTROSE 5%-WATER - 50 ML IVPB ONE ×4 (01:24→17:21)
[2018-06-05] MEDS ORDERED: PIPERACILLIN/TAZOBACTAM 2.25 GM VIAL IVPB ONE ×4 (01:24→17:21)
[2018-06-05] MEDS: PIPERACILLIN/TAZOB 2.25 GM 2.25 GM in DEXTROSE 5%-WATER - 50 ML IVPB SCH ×3 (01:34→17:34)
[2018-06-05] MEDS ORDERED: PT OWN MED DRAWER 7, Y5N ONE ×2 (05:29→20:40)
[2018-06-05] MEDS: CALCIUM (OYSTER SHELL) 500 MG TABLET (FP) PO SCH ×3 (06:18→17:33)
[2018-06-05] MEDS: LEVOTHYROXINE NA 100 MCG TABLET (FP) PO SCH (06:18)
[2018-06-05] MEDS: busPIRone HCL 10 MG TABLET (FP) PO SCH ×3 (06:18→23:00)
[2018-06-05 06:58] LABS: EOS % 1.1 % (0-4.5); HEMATOCRIT 25.8 % (35.4-49); HEMOGLOBIN 7.8 GM/dL (11.7-16.9); LYMPH % 9.5 % (8-40); MCHC 30.2 g/dl (32.0-35.9); MEAN CELL VOLUME 92.5 fl (80-96); MEAN PLT VOLUME 8.1 fl (7.5-11.1); MONO % 7.7 % (3.8-10.2); NEUT % 80.7 % (42.8-82.8); PLATELET COUNT 172 K/MM3 (134-434); RBC 2.79 M/mm3 (4.00-5.60); RDW 19.2 % (11.9-15.9); WHITE BLOOD COUNT 9.1 K/mm3 (4.0-10.0)
[2018-06-05 07:20] LABS: INR 1.59 (0.83-1.09); PROTHROMBIN TIME (PATIENT) 18.8 SEC (9.7-13.0)
[2018-06-05 07:52] LABS: ANION GAP 9 MMOL/L (8-16); BLOOD UREA NITROGEN 25 mg/dL (7-18); CALCIUM 7.8 mg/dL (8.5-10.1); CHLORIDE 98 mmol/L (98-107); CO2 30 mmol/L (21-32); GLUCOSE,RANDOM 164 mg/dL (74-106); POTASSIUM 3.9 mmol/L (3.5-5.1); SODIUM 138 mmol/L (136-145)
[2018-06-05] MEDS: FOLIC ACID 1 MG TABLET (FP) PO SCH (09:46)
[2018-06-05] MEDS: AMIODARONE HCL 200 MG TABLET (FP) PO SCH (09:46)
[2018-06-05] MEDS: CITALOPRAM HYDROBROMIDE 20 MG TABLET (FP) PO SCH (09:46)
[2018-06-05] MEDS: VITAMIN B COMP W-C 1 EA TABLET PO SCH (09:46)
[2018-06-05] MEDS: CYANOCOBALAMIN (VITAMIN B-12) 100 MCG TABLET PO SCH (09:46)
[2018-06-05] MEDS: MIDODRINE HCL 5 MG TABLET PO SCH ×3 (09:47→17:33)
[2018-06-05] MEDS: COLLAGENASE CLOSTRIDIUM HIST. 30 GRAMS TUBE TP SCH (09:50)
[2018-06-05] MEDS: ACETAMINOPHEN 325 MG TABLET (FP) PO PRN (09:58)
--- NOTE | 2018-06-05 11:55 | PN ---
Progress Note, Physician Chief Complaint: Mr Schaeffer is without complaint today. No cp, sob, n/v. - Current Medication List Current Medications: Active Medications Acetaminophen (Tylenol -) 650 mg PO Q4H PRN PRN Reason: HEADACHE Last Admin: 06/05/18 09:58 Dose: 650 mg Amiodarone HCl (Cordarone -) 200 mg PO DAILY [facility] Last Admin: 06/05/18 09:46 Dose: 200 mg Buspirone HCl (Buspar -) 10 mg PO TID [facility] Last Admin: 06/05/18 06:18 Dose: 10 mg Calcium Carbonate (Os-Merlin 500mg -) 500 mg PO TIDAC [facility] Last Admin: 06/05/18 11:03 Dose: 500 mg Citalopram Hydrobromide (Celexa -) 20 mg PO DAILY [facility] Last Admin: 06/05/18 09:46 Dose: 20 mg Collagenase (Santyl -) 1 applic TP DAILY [facility]; Protocol Last Admin: 06/05/18 09:50 Dose: 1 applic Cyanocobalamin (Vitamin B12 -) 100 mcg PO DAILY [facility] Last Admin: 06/05/18 09:46 Dose: 100 mcg Folic Acid (Folic Acid -) 1 mg PO DAILY [facility] Last Admin: 06/05/18 09:46 Dose: 1 mg Piperacillin Sod/Tazobactam (Sod 2.25 gm/ Dextrose) 50 mls @ 100 mls/hr IVPB Q8H-IV [facility]; Protocol Last Admin: 06/05/18 09:47 Dose: 100 mls/hr Levothyroxine Sodium (Synthroid -) 100 mcg PO DAILY@0600 [facility] Last Admin: 06/05/18 06:18 Dose: 100 mcg Midodrine (Proamatine -) 5 mg PO TID-MID [facility] Last Admin: 06/05/18 09:47 Dose: 5 mg Multivit/Ca Carb/B Cmplx/FA/Prenat (Nephro-Zane -) 1 tablet PO DAILY [facility] Last Admin: 06/05/18 09:46 Dose: 1 tablet - Objective Vital Signs: Vital Signs Temperature 36.8 C 06/05/18 10:00 Pulse Rate 82 06/05/18 10:00 Respiratory Rate 20 06/05/18 10:00 Blood Pressure 121/60 06/05/18 10:00 O2 Sat by Pulse Oximetry (%) 100 06/05/18 09:00 Constitutional: Yes: Well Nourished, No Distress, Calm Cardiovascular: Yes: Regular Rate and Rhythm. No: Gallop, Murmur, Rub Respiratory: Yes: Regular, CTA Bilaterally. No: Rales, Rhonchi, Wheezes Gastrointestinal: Yes: Normal Bowel Sounds, Soft, Distention. No: Tenderness Extremities: Yes: WNL Edema: No Labs: CBC, BMP 06/05/18 05:30 06/05/18 05:30 INR, PTT INR 1.59 (0.83-1.09) H 06/05/18 05:30 Problem List - Problems (1) Hypotension Code(s): I95.9 - HYPOTENSION, UNSPECIFIED (2) ESRD (end stage renal disease) Code(s): N18.6 - END STAGE RENAL DISEASE (3) Ascites Code(s): R18.8 - OTHER ASCITES Qualifiers: Ascites type: other type Qualified Code(s): R18.8 - Other ascites (4) Supratherapeutic INR Code(s): R79.1 - ABNORMAL COAGULATION PROFILE (5) CAD (coronary artery disease) Code(s): I25.10 - ATHSCL HEART DISEASE OF [place] CORONARY ARTERY W/O ANG PCTRS Qualifiers: Coronary Disease-Associated Artery/Lesion type: [place] artery [place] vs. transplanted heart: [place] heart Associated angina: without angina Qualified Code(s): I25.10 - Atherosclerotic heart disease of [place] coronary artery without angina pectoris (6) CHF (congestive heart failure) Code(s): I50.9 - HEART FAILURE, UNSPECIFIED Qualifiers: Heart failure type: unspecified Heart failure chronicity: acute on chronic Qualified Code(s): I50.9 - Heart failure, unspecified (7) Hypothyroid Code(s): E03.9 - HYPOTHYROIDISM, UNSPECIFIED Qualifiers: Hypothyroidism type: unspecified Qualified Code(s): E03.9 - Hypothyroidism , unspecified (8) SBP (spontaneous bacterial peritonitis) Code(s): K65.2 - SPONTANEOUS BACTERIAL PERITONITIS Assessment/Plan (1) Hypotension Assessment/Plan: -currently resolved -off all antihypertensives -transfuse 2 units with HD since hypotensive -does not need urgently but suspect blood pressure would benefit from transfusion Code(s): I95.9 - HYPOTENSION, UNSPECIFIED (2) ESRD (end stage renal disease) Assessment/Plan: -cont HD per nephrology recommendations Code(s): N18.6 - END STAGE RENAL DISEASE (3) Ascites Assessment/Plan: -continue zosyn for possible infected ascites -INR stable -will d/w ID about paracentesis, will time it after transfusion if possible Code(s): R18.8 - OTHER ASCITES (4) Supratherapeutic INR Assessment/Plan: -hematology consulted and appreciate assistance -normalizing Code(s): R79.1 - ABNORMAL COAGULATION PROFILE (5) CAD (coronary artery disease) Assessment/Plan: -cardiology following -ECHO reviewed -holding coreg secondary to hypotension Code(s): I25.10 - ATHSCL HEART DISEASE OF [place] CORONARY ARTERY W/O ANG PCTRS (6) CHF (congestive heart failure) Assessment/Plan: -treating with HD Code(s): I50.9 - HEART FAILURE, UNSPECIFIED Qualifiers: Heart failure chronicity: acute on chronic (7) Hypothyroid Assessment/Plan: -continue synthroid Code(s): E03.9 - HYPOTHYROIDISM, UNSPECIFIED (8) SBP (secondary bacterial peritonitis) Assessment/Plan: -with loculated ascites -as above Code(s): K65.2 - SPONTANEOUS BACTERIAL PERITONITIS (9) Anxiety -continue buspar (10) Anemia -transfuse with HD
--- NOTE | 2018-06-05 12:23 | PN ---
Progress Note, Physician Chief Complaint: sob History of Present Illness: breathing great. best he's felt in many weeks no leg swelling no cp, palpit - Current Medication List Current Medications: Active Medications Acetaminophen (Tylenol -) 650 mg PO Q4H PRN PRN Reason: HEADACHE Last Admin: 06/05/18 09:58 Dose: 650 mg Amiodarone HCl (Cordarone -) 200 mg PO DAILY [facility] Last Admin: 06/05/18 09:46 Dose: 200 mg Buspirone HCl (Buspar -) 10 mg PO TID [facility] Last Admin: 06/05/18 06:18 Dose: 10 mg Calcium Carbonate (Os-Merlin 500mg -) 500 mg PO TIDAC [facility] Last Admin: 06/05/18 11:03 Dose: 500 mg Citalopram Hydrobromide (Celexa -) 20 mg PO DAILY [facility] Last Admin: 06/05/18 09:46 Dose: 20 mg Collagenase (Santyl -) 1 applic TP DAILY [facility]; Protocol Last Admin: 06/05/18 09:50 Dose: 1 applic Cyanocobalamin (Vitamin B12 -) 100 mcg PO DAILY [facility] Last Admin: 06/05/18 09:46 Dose: 100 mcg Folic Acid (Folic Acid -) 1 mg PO DAILY [facility] Last Admin: 06/05/18 09:46 Dose: 1 mg Piperacillin Sod/Tazobactam (Sod 2.25 gm/ Dextrose) 50 mls @ 100 mls/hr IVPB Q8H-IV [facility]; Protocol Last Admin: 06/05/18 09:47 Dose: 100 mls/hr Levothyroxine Sodium (Synthroid -) 100 mcg PO DAILY@0600 [facility] Last Admin: 06/05/18 06:18 Dose: 100 mcg Midodrine (Proamatine -) 5 mg PO TID-MID [facility] Last Admin: 06/05/18 09:47 Dose: 5 mg Multivit/Ca Carb/B Cmplx/FA/Prenat (Nephro-Zane -) 1 tablet PO DAILY [facility] Last Admin: 06/05/18 09:46 Dose: 1 tablet - Objective Vital Signs: Vital Signs Temperature 98.2 F 06/05/18 10:00 Pulse Rate 82 06/05/18 10:00 Respiratory Rate 20 06/05/18 10:00 Blood Pressure 121/60 06/05/18 10:00 O2 Sat by Pulse Oximetry (%) 100 06/05/18 09:00 Constitutional: Yes: Well Nourished, No Distress, Calm Cardiovascular: Yes: Regular Rate and Rhythm, JVD (probably mild), S1, S2. No: Gallop, Murmur Respiratory: Yes: Regular, CTA Bilaterally. No: Accessory Muscle Use, Rales, Wheezes Extremities: No: Cold Edema: No Neurological: Yes: Alert, Oriented Psychiatric: No: Agitated Labs: CBC, BMP 06/05/18 05:30 06/05/18 05:30 INR, PTT INR 1.59 (0.83-1.09) H 06/05/18 05:30 Assessment/Plan echo 05/2018 nl LV size, mildly reduced function EF 45-50%, mild global hypokinesis of LV, nl RV, ppm lead in RV and RA, tr TR EKG: sinus, prolonged QTC, old septal infarct CXR: blunting of R costophrenic angle. o/w clear CT abd: large ascites, small pneumoperitoneum, bilateral flank soft tissue edema tele: sr acute on chronic systolic HF, large ascites, bilat flank soft tissue edema - CT findings as above--right >> left sided volume overload. ? related to TSH of 14. ? 3rd spacing (albumin borderline) - mildly reduced EF on echo - sob much improved--cont volume management per renal via HD - workup and management of ascites per hospitalist, surgery (following) - not on DELANO/BB due to low BP - no signs ACS with neg troponins ESRD on HD - plan per renal Prolonged QTc - avoid QT prolonging agents - maintain K >4, Mg >2 s/p ICD ([employer]) - outpatient follow up, Dr. Stover - recent device checks unremarkable per patient hypotension history - bp stable here - continue midodrine ESRD on HD - renal consulted CAD, s/p CABG - cont statin - holding aspirin, elevated INR and anemia mesenteric ischemia - recent dx, s/p surgery during recent admission for hip fx, was started on eliquis - holding eliquis for now due to elevated INR and anemia--need to revisit this later in light of ? AF burden previously on ICD (will check with Dr Stover) and GI input re: need for preventing further bowel ischemia anemia - workup and management per primary D/C TELEMETRY
--- NOTE | 2018-06-05 15:17 | PN ---
Progress Note, Physician History of Present Illness: stable no complaints - Current Medication List Current Medications: Active Medications Acetaminophen (Tylenol -) 650 mg PO Q4H PRN PRN Reason: HEADACHE Last Admin: 06/05/18 09:58 Dose: 650 mg Amiodarone HCl (Cordarone -) 200 mg PO DAILY [facility] Last Admin: 06/05/18 09:46 Dose: 200 mg Buspirone HCl (Buspar -) 10 mg PO TID [facility] Last Admin: 06/05/18 13:30 Dose: 10 mg Calcium Carbonate (Os-Merlin 500mg -) 500 mg PO TIDAC [facility] Last Admin: 06/05/18 11:03 Dose: 500 mg Citalopram Hydrobromide (Celexa -) 20 mg PO DAILY [facility] Last Admin: 06/05/18 09:46 Dose: 20 mg Collagenase (Santyl -) 1 applic TP DAILY [facility]; Protocol Last Admin: 06/05/18 09:50 Dose: 1 applic Cyanocobalamin (Vitamin B12 -) 100 mcg PO DAILY [facility] Last Admin: 06/05/18 09:46 Dose: 100 mcg Folic Acid (Folic Acid -) 1 mg PO DAILY [facility] Last Admin: 06/05/18 09:46 Dose: 1 mg Piperacillin Sod/Tazobactam (Sod 2.25 gm/ Dextrose) 50 mls @ 100 mls/hr IVPB Q8H-IV [facility]; Protocol Last Admin: 06/05/18 09:47 Dose: 100 mls/hr Levothyroxine Sodium (Synthroid -) 100 mcg PO DAILY@0600 [facility] Last Admin: 06/05/18 06:18 Dose: 100 mcg Midodrine (Proamatine -) 5 mg PO TID-MID [facility] Last Admin: 06/05/18 13:30 Dose: 5 mg Multivit/Ca Carb/B Cmplx/FA/Prenat (Nephro-Zane -) 1 tablet PO DAILY [facility] Last Admin: 06/05/18 09:46 Dose: 1 tablet - Objective Vital Signs: Vital Signs Temperature 98.2 F 06/05/18 15:03 Pulse Rate 63 06/05/18 15:03 Respiratory Rate 20 06/05/18 15:03 Blood Pressure 92/40 L 06/05/18 15:03 O2 Sat by Pulse Oximetry (%) 100 06/05/18 09:00 Constitutional: Yes: No Distress, Calm Cardiovascular: Yes: S1, S2 Respiratory: Yes: Regular, CTA Bilaterally Gastrointestinal: Yes: Normal Bowel Sounds, Soft, Ascites Musculoskeletal: Yes: WNL Extremities: Yes: WNL Neurological: Yes: Alert, Oriented Psychiatric: Yes: Alert, Oriented Labs: CBC, BMP 06/05/18 05:30 06/05/18 05:30 INR, PTT INR 1.59 (0.83-1.09) H 06/05/18 05:30 Assessment/Plan ASSESSMENT AND PLAN: (1) Hypotension Code(s): I95.9 - HYPOTENSION, UNSPECIFIED (2) ESRD (end stage renal disease) Code(s): N18.6 - END STAGE RENAL DISEASE (3) Ascites Code(s): R18.8 - OTHER ASCITES (4) Supratherapeutic INR Code(s): R79.1 - ABNORMAL COAGULATION PROFILE (5) CAD (coronary artery disease) Code(s): I25.10 - ATHSCL HEART DISEASE OF [place] CORONARY ARTERY W/O ANG PCTRS (6) CHF (congestive heart failure) Code(s): I50.9 - HEART FAILURE, UNSPECIFIED Qualifiers: Heart failure chronicity: acute on chronic (7) Hypothyroid Code(s): E03.9 - HYPOTHYROIDISM, UNSPECIFIED (8) SBP (secondary bacterial peritonitis) Code(s): K65.2 - SPONTANEOUS BACTERIAL PERITONITIS (9) Anxiety -consult psychiatry plan continue abx consider tapping if everything negative stop abx rest as per the team
--- NOTE | 2018-06-05 15:42 | PN ---
Progress Note, Physician History of Present Illness: Reviewed available records from [facility]; orthopedic op note is present, gen surg op notes are not. See summary of events in yesterday's note. Spoke with med records at [facility] this morning, who will try to send the missing operative notes. Nothing more has been received by fax yet. Patient is seen and examined in bed, mother and sister at bedside. He states he is feeling almost the best he has since his Apr fall. No GI complaints. Tolerating diet. No abdominal pain. Just got back to bed. Pt states his daughter is trying to get CD of his CT scans from [facility]. - Current Medication List Current Medications: Active Medications Acetaminophen (Tylenol -) 650 mg PO Q4H PRN PRN Reason: HEADACHE Last Admin: 06/05/18 09:58 Dose: 650 mg Amiodarone HCl (Cordarone -) 200 mg PO DAILY [facility] Last Admin: 06/05/18 09:46 Dose: 200 mg Buspirone HCl (Buspar -) 10 mg PO TID [facility] Last Admin: 06/05/18 13:30 Dose: 10 mg Calcium Carbonate (Os-Merlin 500mg -) 500 mg PO TIDAC [facility] Last Admin: 06/05/18 11:03 Dose: 500 mg Citalopram Hydrobromide (Celexa -) 20 mg PO DAILY [facility] Last Admin: 06/05/18 09:46 Dose: 20 mg Collagenase (Santyl -) 1 applic TP DAILY [facility]; Protocol Last Admin: 06/05/18 09:50 Dose: 1 applic Cyanocobalamin (Vitamin B12 -) 100 mcg PO DAILY [facility] Last Admin: 06/05/18 09:46 Dose: 100 mcg Folic Acid (Folic Acid -) 1 mg PO DAILY [facility] Last Admin: 06/05/18 09:46 Dose: 1 mg Piperacillin Sod/Tazobactam (Sod 2.25 gm/ Dextrose) 50 mls @ 100 mls/hr IVPB Q8H-IV [facility]; Protocol Last Admin: 06/05/18 09:47 Dose: 100 mls/hr Levothyroxine Sodium (Synthroid -) 100 mcg PO DAILY@0600 [facility] Last Admin: 06/05/18 06:18 Dose: 100 mcg Midodrine (Proamatine -) 5 mg PO TID-MID [facility] Last Admin: 06/05/18 13:30 Dose: 5 mg Multivit/Ca Carb/B Cmplx/FA/Prenat (Nephro-Zane -) 1 tablet PO DAILY [facility] Last Admin: 06/05/18 09:46 Dose: 1 tablet - Objective Vital Signs: Vital Signs Temperature 98.2 F 06/05/18 15:03 Pulse Rate 63 06/05/18 15:03 Respiratory Rate 20 06/05/18 15:03 Blood Pressure 92/40 L 06/05/18 15:03 O2 Sat by Pulse Oximetry (%) 100 06/05/18 09:00 Constitutional: Yes: Well Nourished, No Distress, Calm Eyes: Yes: Conjunctiva Clear, EOM Intact HENT: Yes: Atraumatic, Normocephalic Respiratory: Yes: Regular, On Nasal O2 Gastrointestinal: Yes: Soft, Ascites, Distention. No: Tenderness Extremities: No: Cool, Cyanosis Integumentary: Yes: Incision (midline, healing). No: Jaundice, Rash Wound/Incision: Yes: Clean/Dry, Well Approximated (small scabbed spot in middle portion), Open to air. No: Draining, Reddened Neurological: Yes: Alert, Oriented Labs: CBC, BMP 06/05/18 05:30 06/05/18 05:30 INR, PTT INR 1.59 (0.83-1.09) H 06/05/18 05:30 coags almost down to normal Problem List - Problems (1) Ascites Assessment/Plan: s/p 04/28 SB resection and R extended hemicolectomy with return to OR 04/30 for washout, additional small resection and closure CT findings by report very similar to those noted 05/23/18 s/p paracentesis 05/24/18 with growth of Klebsiella and abx treatment pt currently on Zosyn per ID ascites may be related to CHF, passive liver congestion? had bacterial growth 10d ago, but no contrast extravasation on CT, no wbc, no fevers - no evidence of bowel leak, tends to argue against active infectious process may be reasonable to retap fluid from LUQ for culture, possibly pelvis as well, if loculated, but would limit drainage to ~2L no acute surgical intervention indicated at this time f/u when more records are available Code(s): R18.8 - OTHER ASCITES Qualifiers: Ascites type: other type Qualified Code(s): R18.8 - Other ascites (2) S/P partial colectomy Code(s): Z90.49 - ACQUIRED ABSENCE OF OTHER SPECIFIED PARTS OF DIGESTIVE TRACT (3) S/P small bowel resection Code(s): Z90.49 - ACQUIRED ABSENCE OF OTHER SPECIFIED PARTS OF DIGESTIVE TRACT (4) Supratherapeutic INR Code(s): R79.1 - ABNORMAL COAGULATION PROFILE (5) CAD (coronary artery disease) Code(s): I25.10 - ATHSCL HEART DISEASE OF [place] CORONARY ARTERY W/O ANG PCTRS Qualifiers: Coronary Disease-Associated Artery/Lesion type: [place] artery [place] vs. transplanted heart: [place] heart Associated angina: without angina Qualified Code(s): I25.10 - Atherosclerotic heart disease of [place] coronary artery without angina pectoris (6) CHF (congestive heart failure) Code(s): I50.9 - HEART FAILURE, UNSPECIFIED Qualifiers: Heart failure type: unspecified Heart failure chronicity: acute on chronic Qualified Code(s): I50.9 - Heart failure, unspecified (7) ESRD (end stage renal disease) Code(s): N18.6 - END STAGE RENAL DISEASE (8) Hypothyroid Code(s): E03.9 - HYPOTHYROIDISM, UNSPECIFIED Qualifiers: Hypothyroidism type: unspecified Qualified Code(s): E03.9 - Hypothyroidism , unspecified
--- NOTE | 2018-06-05 15:55 | PN ---
Progress Note, Physician History of Present Illness: Pt seen and examined at bedside. He is awake and appear comfortable. He denies shortness of breath. - Current Medication List Current Medications: Active Medications Acetaminophen (Tylenol -) 650 mg PO Q4H PRN PRN Reason: HEADACHE Last Admin: 06/05/18 09:58 Dose: 650 mg Amiodarone HCl (Cordarone -) 200 mg PO DAILY [facility] Last Admin: 06/05/18 09:46 Dose: 200 mg Buspirone HCl (Buspar -) 10 mg PO TID [facility] Last Admin: 06/05/18 13:30 Dose: 10 mg Calcium Carbonate (Os-Merlin 500mg -) 500 mg PO TIDAC [facility] Last Admin: 06/05/18 11:03 Dose: 500 mg Citalopram Hydrobromide (Celexa -) 20 mg PO DAILY [facility] Last Admin: 06/05/18 09:46 Dose: 20 mg Collagenase (Santyl -) 1 applic TP DAILY [facility]; Protocol Last Admin: 06/05/18 09:50 Dose: 1 applic Cyanocobalamin (Vitamin B12 -) 100 mcg PO DAILY [facility] Last Admin: 06/05/18 09:46 Dose: 100 mcg Folic Acid (Folic Acid -) 1 mg PO DAILY [facility] Last Admin: 06/05/18 09:46 Dose: 1 mg Piperacillin Sod/Tazobactam (Sod 2.25 gm/ Dextrose) 50 mls @ 100 mls/hr IVPB Q8H-IV [facility]; Protocol Last Admin: 06/05/18 09:47 Dose: 100 mls/hr Levothyroxine Sodium (Synthroid -) 100 mcg PO DAILY@0600 [facility] Last Admin: 06/05/18 06:18 Dose: 100 mcg Midodrine (Proamatine -) 5 mg PO TID-MID [facility] Last Admin: 06/05/18 13:30 Dose: 5 mg Multivit/Ca Carb/B Cmplx/FA/Prenat (Nephro-Zane -) 1 tablet PO DAILY [facility] Last Admin: 06/05/18 09:46 Dose: 1 tablet - Objective Vital Signs: Vital Signs Temperature 98.2 F 06/05/18 15:03 Pulse Rate 63 06/05/18 15:03 Respiratory Rate 20 06/05/18 15:03 Blood Pressure 92/40 L 06/05/18 15:03 O2 Sat by Pulse Oximetry (%) 100 06/05/18 09:00 Constitutional: Yes: Calm Eyes: Yes: Conjunctiva Clear HENT: Yes: Atraumatic Neck: Yes: Supple Cardiovascular: Yes: S1, S2 Respiratory: Yes: CTA Bilaterally Gastrointestinal: Yes: Soft Genitourinary: Yes: Incontinence Edema: Yes Edema: LLE: Trace, RLE: Trace Neurological: Yes: Oriented Labs: CBC, BMP 06/05/18 05:30 06/05/18 05:30 INR, PTT INR 1.59 (0.83-1.09) H 06/05/18 05:30 Assessment/Plan Current Medications Generic Name Dose Route Start Last Admin Trade Name Freq PRN Reason Stop Dose Admin Acetaminophen 650 mg 06/02/18 08:58 06/05/18 09:58 Tylenol - PO 650 mg Q4H PRN Administration HEADACHE Amiodarone HCl 200 mg 06/01/18 11:21 06/05/18 09:46 Cordarone - PO 200 mg DAILY [facility] Administration Buspirone HCl 10 mg 06/03/18 14:00 06/05/18 13:30 Buspar - PO 10 mg TID [facility] Administration Calcium Carbonate 500 mg 06/01/18 16:30 06/05/18 11:03 Os-Merlin 500mg - PO 500 mg TIDAC [facility] Administration Citalopram Hydrobromide 20 mg 06/01/18 13:15 06/05/18 09:46 Celexa - PO 20 mg DAILY [facility] Administration Collagenase 1 applic 06/01/18 17:15 06/05/18 09:50 Santyl - TP 1 applic DAILY [facility] Administration Protocol Cyanocobalamin 100 mcg 06/01/18 13:15 06/05/18 09:46 Vitamin B12 - PO 100 mcg DAILY [facility] Administration Folic Acid 1 mg 06/01/18 13:15 06/05/18 09:46 Folic Acid - PO 1 mg DAILY [facility] Administration Piperacillin Sod/Tazobactam 50 mls @ 100 mls/hr 06/02/18 18:00 06/05/18 09:47 Sod 2.25 gm/ Dextrose IVPB 100 mls/hr Q8H-IV [facility] Administration Protocol Levothyroxine Sodium 100 mcg 06/05/18 06:00 06/05/18 06:18 Synthroid - PO 100 mcg DAILY@0600 [facility] Administration Midodrine 5 mg 06/01/18 14:00 06/05/18 13:30 Proamatine - PO 5 mg TID-MID [facility] Administration Multivit/Ca Carb/B Cmplx/FA/Prenat 1 tablet 06/01/18 13:30 06/05/18 09:46 Nephro-Zane - PO 1 tablet DAILY [facility] Administration Impression 1. ESRD 2. CAD 3. CABG 4. COPD 5. CHF 6. SBP 7. DVT 8. hx mesinteric ischemia 9. hypothyroidism 10. gout 11. hld 12. pleural effusion 13. anemia Plan - HD tomorrow - epogen for anemia - surgery follow up - pending placement for HD - will need follow up with Dr Woodard for fistula - monitor hg - will follow Dr Jones
[2018-06-05] MEDS ORDERED: SODIUM CHLORIDE 250 ML IV PRN ×2 (15:57→15:58)
[2018-06-06] MEDS ORDERED: DEXTROSE 5%-WATER - 50 ML IVPB ONE ×2 (03:19→16:43)
[2018-06-06] MEDS ORDERED: PIPERACILLIN/TAZOBACTAM 2.25 GM VIAL IVPB ONE ×2 (03:19→16:43)
[2018-06-06] MEDS: PIPERACILLIN/TAZOB 2.25 GM 2.25 GM in DEXTROSE 5%-WATER - 50 ML IVPB SCH ×3 (03:22→17:14)
[2018-06-06] MEDS: busPIRone HCL 10 MG TABLET (FP) PO SCH ×3 (05:57→21:01)
[2018-06-06] MEDS: LEVOTHYROXINE NA 100 MCG TABLET (FP) PO SCH (05:57)
[2018-06-06] MEDS: CALCIUM (OYSTER SHELL) 500 MG TABLET (FP) PO SCH ×4 (06:16→17:14)
--- NOTE | 2018-06-06 09:51 | PN ---
Progress Note (short form) - Note Progress Note: Chief Complaint: sob History of Present Illness: sob improved, no cp, palps, dizziness, edema Current Medications Acetaminophen (Tylenol -) 650 mg PO Q4H PRN PRN Reason: HEADACHE Last Admin: 06/05/18 09:58 Dose: 650 mg Albumin Human (Albumin Human 25%) 12.5 gm IVPB Q30M [facility] Amiodarone HCl (Cordarone -) 200 mg PO DAILY [facility] Last Admin: 06/05/18 09:46 Dose: 200 mg Buspirone HCl (Buspar -) 10 mg PO TID [facility] Last Admin: 06/06/18 05:57 Dose: Not Given Calcium Carbonate (Os-Merlin 500mg -) 500 mg PO TIDAC [facility] Last Admin: 06/06/18 06:16 Dose: Not Given Citalopram Hydrobromide (Celexa -) 20 mg PO DAILY [facility] Last Admin: 06/05/18 09:46 Dose: 20 mg Collagenase (Santyl -) 1 applic TP DAILY [facility]; Protocol Last Admin: 06/05/18 09:50 Dose: 1 applic Cyanocobalamin (Vitamin B12 -) 100 mcg PO DAILY [facility] Last Admin: 06/05/18 09:46 Dose: 100 mcg Epoetin Josemanuel (Epogen -) 10,000 unit IVPUSH ONCE ONE Stop: 06/06/18 15:59 Folic Acid (Folic Acid -) 1 mg PO DAILY [facility] Last Admin: 06/05/18 09:46 Dose: 1 mg Piperacillin Sod/Tazobactam (Sod 2.25 gm/ Dextrose) 50 mls @ 100 mls/hr IVPB Q8H-IV [facility]; Protocol Last Admin: 06/06/18 03:22 Dose: 100 mls/hr Sodium Chloride (Normal Saline -) 250 mls @ 3,000 mls/hr IV PRN PRN PRN Reason: Hypotension during Dialysis Stop: 06/06/18 15:57 Sodium Chloride (Normal Saline -) 250 mls @ 3,000 mls/hr IV PRN PRN PRN Reason: Hypotension during Dialysis Stop: 06/06/18 15:58 Levothyroxine Sodium (Synthroid -) 100 mcg PO DAILY@0600 [facility] Last Admin: 06/06/18 05:57 Dose: Not Given Midodrine (Proamatine -) 5 mg PO TID-MID [facility] Last Admin: 06/05/18 17:33 Dose: 5 mg Multivit/Ca Carb/B Cmplx/FA/Prenat (Nephro-Zane -) 1 tablet PO DAILY [facility] Last Admin: 06/05/18 09:46 Dose: 1 tablet - Objective Vital Signs: Vital Signs Period Temp Pulse Resp BP Sys/Emery Pulse Ox Last 24 Hr 98.1 F-98.2 F 63-82 20-20 92-121/40-60 100 Constitutional: Yes: Well Nourished, No Distress, Calm Cardiovascular: Yes: Regular Rate and Rhythm, JVD (probably mild), S1, S2. No: Gallop, Murmur Respiratory: Yes: Regular, CTA Bilaterally. No: Accessory Muscle Use, Rales, Wheezes Extremities: No: Cold Edema: No Neurological: Yes: Alert, Oriented Psychiatric: No: Agitated Assessment/Plan echo 05/2018 nl LV size, mildly reduced function EF 45-50%, mild global hypokinesis of LV, nl RV, ppm lead in RV and RA, tr TR EKG: sinus, prolonged QTC, old septal infarct CXR: blunting of R costophrenic angle. o/w clear CT abd: large ascites, small pneumoperitoneum, bilateral flank soft tissue edema tele: sr acute on chronic systolic HF, large ascites, bilat flank soft tissue edema - CT findings as above--right >> left sided volume overload. ? related to TSH of 14. ? 3rd spacing (albumin borderline) - mildly reduced EF on echo - sob improving --cont volume management per renal via HD - workup and management of ascites per hospitalist, surgery (following) - not on DELANO/BB due to low BP - no signs ACS with neg troponins ESRD on HD - plan per renal Prolonged QTc - avoid QT prolonging agents - maintain K >4, Mg >2 s/p ICD ([employer]ING) - implanted for CHF, ischemic cardiomyopathy in 2012 - outpatient follow up, Dr. Stover - recent device checks unremarkable per patient hypotension history - bp stable here - continue midodrine ESRD on HD - renal consulted CAD, s/p CABG - cont statin - holding aspirin, elevated INR and anemia mesenteric ischemia - recent dx, s/p surgery during recent admission for hip fx, was started on eliquis - holding eliquis for now due to elevated INR and anemia - per Dr. Stover no AF previously noted on ICD anemia - workup and management per primary
[2018-06-06] MEDS: FOLIC ACID 1 MG TABLET (FP) PO SCH ×2 (09:58→14:26)
[2018-06-06] MEDS: CITALOPRAM HYDROBROMIDE 20 MG TABLET (FP) PO SCH ×2 (09:58→14:26)
[2018-06-06] MEDS: AMIODARONE HCL 200 MG TABLET (FP) PO SCH (09:58)
[2018-06-06] MEDS: COLLAGENASE CLOSTRIDIUM HIST. 30 GRAMS TUBE TP SCH (09:59)
[2018-06-06] MEDS: CYANOCOBALAMIN (VITAMIN B-12) 100 MCG TABLET PO SCH ×2 (09:59→14:26)
[2018-06-06] MEDS: MIDODRINE HCL 5 MG TABLET PO SCH ×3 (09:59→17:14)
[2018-06-06] MEDS: VITAMIN B COMP W-C 1 EA TABLET PO SCH ×2 (09:59→14:26)
[2018-06-06] MEDS ORDERED: EPOETIN ALFA 10,000 UNIT/1 ML VIAL IVPUSH ONE (10:00)
[2018-06-06 11:02] LABS: ANION GAP 10 MMOL/L (8-16); BLOOD UREA NITROGEN 30 mg/dL (7-18); CALCIUM 7.7 mg/dL (8.5-10.1); CHLORIDE 101 mmol/L (98-107); CO2 28 mmol/L (21-32); CREATININE 4.9 mg/dL (0.55-1.3); GLUCOSE,RANDOM 147 mg/dL (74-106); POTASSIUM 4.1 mmol/L (3.5-5.1); SODIUM 139 mmol/L (136-145)
[2018-06-06 12:39] LABS: INR 1.37 (0.83-1.09); PROTHROMBIN TIME (PATIENT) 16.2 SEC (9.7-13.0)
[2018-06-06 13:11] LABS: CREATININE 1.8 mg/dL (0.55-1.3)
--- NOTE | 2018-06-06 13:14 | PN ---
Progress Note, Physician History of Present Illness: Pt seen and examined at bedside. He is awake and alert. He is tolerating HD. - Current Medication List Current Medications: Active Medications Acetaminophen (Tylenol -) 650 mg PO Q4H PRN PRN Reason: HEADACHE Last Admin: 06/05/18 09:58 Dose: 650 mg Albumin Human (Albumin Human 25%) 12.5 gm IVPB Q30M [facility] Amiodarone HCl (Cordarone -) 200 mg PO DAILY [facility] Last Admin: 06/06/18 09:58 Dose: Not Given Buspirone HCl (Buspar -) 10 mg PO TID [facility] Last Admin: 06/06/18 05:57 Dose: Not Given Calcium Carbonate (Os-Merlin 500mg -) 500 mg PO TIDAC [facility] Last Admin: 06/06/18 09:59 Dose: Not Given Citalopram Hydrobromide (Celexa -) 20 mg PO DAILY [facility] Last Admin: 06/06/18 09:58 Dose: Not Given Collagenase (Santyl -) 1 applic TP DAILY [facility]; Protocol Last Admin: 06/06/18 09:59 Dose: Not Given Cyanocobalamin (Vitamin B12 -) 100 mcg PO DAILY [facility] Last Admin: 06/06/18 09:59 Dose: Not Given Folic Acid (Folic Acid -) 1 mg PO DAILY [facility] Last Admin: 06/06/18 09:58 Dose: Not Given Piperacillin Sod/Tazobactam (Sod 2.25 gm/ Dextrose) 50 mls @ 100 mls/hr IVPB Q8H-IV [facility]; Protocol Last Admin: 06/06/18 09:59 Dose: Not Given Sodium Chloride (Normal Saline -) 250 mls @ 3,000 mls/hr IV PRN PRN PRN Reason: Hypotension during Dialysis Stop: 06/06/18 15:57 Sodium Chloride (Normal Saline -) 250 mls @ 3,000 mls/hr IV PRN PRN PRN Reason: Hypotension during Dialysis Stop: 06/06/18 15:58 Levothyroxine Sodium (Synthroid -) 100 mcg PO DAILY@0600 [facility] Last Admin: 06/06/18 05:57 Dose: Not Given Midodrine (Proamatine -) 5 mg PO TID-MID [facility] Last Admin: 06/06/18 09:59 Dose: Not Given Multivit/Ca Carb/B Cmplx/FA/Prenat (Nephro-Zane -) 1 tablet PO DAILY [facility] Last Admin: 06/06/18 09:59 Dose: Not Given - Objective Vital Signs: Vital Signs Temperature 97.8 F 06/06/18 08:35 Pulse Rate 79 06/06/18 12:05 Respiratory Rate 18 06/06/18 12:05 Blood Pressure 123/56 L 06/06/18 12:05 O2 Sat by Pulse Oximetry (%) 100 06/06/18 09:00 Constitutional: Yes: Calm Eyes: Yes: Conjunctiva Clear HENT: Yes: Atraumatic Neck: Yes: Supple Cardiovascular: Yes: S1, S2 Respiratory: Yes: CTA Bilaterally Gastrointestinal: Yes: Soft Genitourinary: Yes: Incontinence Extremities: Yes: WNL Edema: Yes Edema: LLE: Trace, RLE: Trace Neurological: Yes: Oriented Psychiatric: Yes: Oriented Labs: CBC, BMP 06/06/18 11:42 INR, PTT INR 1.37 (0.83-1.09) H 06/06/18 09:50 Assessment/Plan Current Medications Generic Name Dose Route Start Last Admin Trade Name Freq PRN Reason Stop Dose Admin Acetaminophen 650 mg 06/02/18 08:58 06/05/18 09:58 Tylenol - PO 650 mg Q4H PRN Administration HEADACHE Albumin Human 12.5 gm 06/06/18 16:00 Albumin Human 25% IVPB Q30M [facility] Amiodarone HCl 200 mg 06/01/18 11:21 06/06/18 09:58 Cordarone - PO Not Given DAILY [facility] Buspirone HCl 10 mg 06/03/18 14:00 06/06/18 05:57 Buspar - PO Not Given TID [facility] Calcium Carbonate 500 mg 06/01/18 16:30 06/06/18 09:59 Os-Merlin 500mg - PO Not Given TIDAC [facility] Citalopram Hydrobromide 20 mg 06/01/18 13:15 06/06/18 09:58 Celexa - PO Not Given DAILY [facility] Collagenase 1 applic 06/01/18 17:15 06/06/18 09:59 Santyl - TP Not Given DAILY [facility] Protocol Cyanocobalamin 100 mcg 06/01/18 13:15 06/06/18 09:59 Vitamin B12 - PO Not Given DAILY [facility] Folic Acid 1 mg 06/01/18 13:15 06/06/18 09:58 Folic Acid - PO Not Given DAILY [facility] Piperacillin Sod/Tazobactam 50 mls @ 100 mls/hr 06/02/18 18:00 06/06/18 09:59 Sod 2.25 gm/ Dextrose IVPB Not Given Q8H-IV [facility] Protocol Sodium Chloride 250 mls @ 3,000 mls/hr 06/05/18 15:57 Normal Saline - IV 06/06/18 15:57 PRN PRN Hypotension during Dialysis Sodium Chloride 250 mls @ 3,000 mls/hr 06/05/18 15:58 Normal Saline - IV 06/06/18 15:58 PRN PRN Hypotension during Dialysis Levothyroxine Sodium 100 mcg 06/05/18 06:00 06/06/18 05:57 Synthroid - PO Not Given DAILY@0600 [facility] Midodrine 5 mg 06/01/18 14:00 06/06/18 09:59 Proamatine - PO Not Given TID-MID [facility] Multivit/Ca Carb/B Cmplx/FA/Prenat 1 tablet 06/01/18 13:30 06/06/18 09:59 Nephro-Zane - PO Not Given DAILY [facility] Impression 1. ESRD 2. CAD 3. CABG 4. COPD 5. CHF 6. SBP 7. DVT 8. hx mesinteric ischemia 9. hypothyroidism 10. gout 11. hld 12. pleural effusion 13. anemia Plan - HD today - follow up hg - epogen for anemia - pending placement for HD - will need follow up with Dr Woodard for fistula - will follow Dr Jones
[2018-06-06 14:09] LABS: BASO % 1.3 % (0-2.0); EOS % 1.1 % (0-4.5); HEMOGLOBIN 7.3 GM/dL (11.7-16.9); LYMPH % 8.4 % (8-40); MCH 28.4 pg (25.7-33.7); MCHC 30.4 g/dl (32.0-35.9); MEAN CELL VOLUME 93.4 fl (80-96); MONO % 7.3 % (3.8-10.2); NEUT % 81.9 % (42.8-82.8); PLATELET COUNT 160 K/MM3 (134-434); RBC 2.57 M/mm3 (4.00-5.60); RDW 20.5 % (11.9-15.9); WHITE BLOOD COUNT 7.9 K/mm3 (4.0-10.0)
[2018-06-06] MEDS ORDERED: PT OWN MED DRAWER 7, Y5N ONE (14:16)
--- NOTE | 2018-06-06 14:22 | PN ---
Progress Note, Physician History of Present Illness: stable no complaints - Current Medication List Current Medications: Active Medications Acetaminophen (Tylenol -) 650 mg PO Q4H PRN PRN Reason: HEADACHE Last Admin: 06/05/18 09:58 Dose: 650 mg Albumin Human (Albumin Human 25%) 12.5 gm IVPB Q30M [facility] Amiodarone HCl (Cordarone -) 200 mg PO DAILY [facility] Last Admin: 06/06/18 09:58 Dose: Not Given Buspirone HCl (Buspar -) 10 mg PO TID [facility] Last Admin: 06/06/18 05:57 Dose: Not Given Calcium Carbonate (Os-Merlin 500mg -) 500 mg PO TIDAC [facility] Last Admin: 06/06/18 09:59 Dose: Not Given Citalopram Hydrobromide (Celexa -) 20 mg PO DAILY [facility] Last Admin: 06/06/18 09:58 Dose: Not Given Collagenase (Santyl -) 1 applic TP DAILY [facility]; Protocol Last Admin: 06/06/18 09:59 Dose: Not Given Cyanocobalamin (Vitamin B12 -) 100 mcg PO DAILY [facility] Last Admin: 06/06/18 09:59 Dose: Not Given Folic Acid (Folic Acid -) 1 mg PO DAILY [facility] Last Admin: 06/06/18 09:58 Dose: Not Given Piperacillin Sod/Tazobactam (Sod 2.25 gm/ Dextrose) 50 mls @ 100 mls/hr IVPB Q8H-IV [facility]; Protocol Last Admin: 06/06/18 09:59 Dose: Not Given Sodium Chloride (Normal Saline -) 250 mls @ 3,000 mls/hr IV PRN PRN PRN Reason: Hypotension during Dialysis Stop: 06/06/18 15:57 Sodium Chloride (Normal Saline -) 250 mls @ 3,000 mls/hr IV PRN PRN PRN Reason: Hypotension during Dialysis Stop: 06/06/18 15:58 Levothyroxine Sodium (Synthroid -) 100 mcg PO DAILY@0600 [facility] Last Admin: 06/06/18 05:57 Dose: Not Given Midodrine (Proamatine -) 5 mg PO TID-MID [facility] Last Admin: 06/06/18 09:59 Dose: Not Given Multivit/Ca Carb/B Cmplx/FA/Prenat (Nephro-Zane -) 1 tablet PO DAILY [facility] Last Admin: 06/06/18 09:59 Dose: Not Given - Objective Vital Signs: Vital Signs Temperature 97.8 F 06/06/18 08:35 Pulse Rate 79 06/06/18 12:05 Respiratory Rate 18 06/06/18 12:05 Blood Pressure 123/56 L 06/06/18 12:05 O2 Sat by Pulse Oximetry (%) 100 06/06/18 09:00 Constitutional: Yes: No Distress, Calm Cardiovascular: Yes: S1, S2 Respiratory: Yes: Regular, CTA Bilaterally Gastrointestinal: Yes: Normal Bowel Sounds, Soft, Ascites Musculoskeletal: Yes: WNL Extremities: Yes: Other Wound/Incision: Yes: Dressing Dry and Intact Neurological: Yes: Alert, Oriented Psychiatric: Yes: Alert, Oriented Labs: CBC, BMP 06/06/18 08:40 06/06/18 11:42 INR, PTT INR 1.37 (0.83-1.09) H 06/06/18 09:50 Assessment/Plan ASSESSMENT AND PLAN: (1) Hypotension Code(s): I95.9 - HYPOTENSION, UNSPECIFIED (2) ESRD (end stage renal disease) Code(s): N18.6 - END STAGE RENAL DISEASE (3) Ascites Code(s): R18.8 - OTHER ASCITES (4) Supratherapeutic INR Code(s): R79.1 - ABNORMAL COAGULATION PROFILE (5) CAD (coronary artery disease) Code(s): I25.10 - ATHSCL HEART DISEASE OF [place] CORONARY ARTERY W/O ANG PCTRS (6) CHF (congestive heart failure) Code(s): I50.9 - HEART FAILURE, UNSPECIFIED Qualifiers: Heart failure chronicity: acute on chronic (7) Hypothyroid Code(s): E03.9 - HYPOTHYROIDISM, UNSPECIFIED (8) SBP (secondary bacterial peritonitis) Code(s): K65.2 - SPONTANEOUS BACTERIAL PERITONITIS (9) Anxiety -consult psychiatry 10 b/l heel ulcer plan continue abx wound care final plan awaited rest as per the team will stop abx tomorrow
[2018-06-06 14:59] LABS: ANISOCYTOSIS 2+; MACROCYTOSIS 1+; OVALOCYTE 1+
[2018-06-06 15:18] LABS: PLATELET ESTIMATE ADEQUATE
--- NOTE | 2018-06-06 15:50 | PN ---
Teaching Attending Note Name of Resident: Mindy Floyd ATTENDING PHYSICIAN STATEMENT I saw and evaluated the patient. I reviewed the resident's note and discussed the case with the resident. I agree with the resident's findings and plan as documented. SUBJECTIVE: Mr Schaeffer is without complaint. No cp, sob, n/v. OBJECTIVE: Last Vital Signs Temp Pulse Resp BP Pulse Ox 36.6 C 79 18 97/44 L 100 06/06/18 08:35 06/06/18 12:05 06/06/18 14:52 06/06/18 14:52 06/06/18 09:00 Gen: nad Pulm: ctab w/o w/r/r CV: rrr w/o m/r/g Abd: +bs, s/nt, distention Ext: no c/c/e CBC, BMP 06/06/18 08:40 06/06/18 11:42 ASSESSMENT AND PLAN: (1) Hypotension Assessment/Plan: -transfuse today -continue midodrine but see if can stop after transfusion Code(s): I95.9 - HYPOTENSION, UNSPECIFIED (2) ESRD (end stage renal disease) Assessment/Plan: -cont HD per nephrology recommendations -received HD today Code(s): N18.6 - END STAGE RENAL DISEASE (3) Ascites Assessment/Plan: -continue zosyn for concern for secondary bacterial peritonitis -paracentesis ordered Code(s): R18.8 - OTHER ASCITES (4) Supratherapeutic INR Assessment/Plan: -hematology consulted and appreciate assistance -normalized Code(s): R79.1 - ABNORMAL COAGULATION PROFILE (5) CAD (coronary artery disease) Assessment/Plan: -cardiology following -ECHO reviewed -holding coreg secondary to hypotension Code(s): I25.10 - ATHSCL HEART DISEASE OF [place] CORONARY ARTERY W/O ANG PCTRS (6) CHF (congestive heart failure) Assessment/Plan: -treating with HD Code(s): I50.9 - HEART FAILURE, UNSPECIFIED Qualifiers: Heart failure chronicity: acute on chronic (7) Hypothyroid Assessment/Plan: -continue synthroid Code(s): E03.9 - HYPOTHYROIDISM, UNSPECIFIED (8) SBP (secondary bacterial peritonitis) Assessment/Plan: -with loculated ascites -on zosyn Code(s): K65.2 - SPONTANEOUS BACTERIAL PERITONITIS (9) Anxiety -continue buspar (10) Anemia -transfuse today Dispo -patient much improved -will need paracentesis with fluid evaluation -d/w ID after paracentesis if need to continue Abx -expect discharge in next 48-72 hours Problem List - Problems (1) Hypotension Code(s): I95.9 - HYPOTENSION, UNSPECIFIED (2) ESRD (end stage renal disease) Code(s): N18.6 - END STAGE RENAL DISEASE (3) Ascites Code(s): R18.8 - OTHER ASCITES Qualifiers: Ascites type: other type Qualified Code(s): R18.8 - Other ascites (4) Supratherapeutic INR Code(s): R79.1 - ABNORMAL COAGULATION PROFILE (5) CAD (coronary artery disease) Code(s): I25.10 - ATHSCL HEART DISEASE OF [place] CORONARY ARTERY W/O ANG PCTRS Qualifiers: Coronary Disease-Associated Artery/Lesion type: [place] artery [place] vs. transplanted heart: [place] heart Associated angina: without angina Qualified Code(s): I25.10 - Atherosclerotic heart disease of [place] coronary artery without angina pectoris (6) CHF (congestive heart failure) Code(s): I50.9 - HEART FAILURE, UNSPECIFIED Qualifiers: Heart failure type: unspecified Heart failure chronicity: acute on chronic Qualified Code(s): I50.9 - Heart failure, unspecified (7) Hypothyroid Code(s): E03.9 - HYPOTHYROIDISM, UNSPECIFIED Qualifiers: Hypothyroidism type: unspecified Qualified Code(s): E03.9 - Hypothyroidism , unspecified (8) SBP (spontaneous bacterial peritonitis) Code(s): K65.2 - SPONTANEOUS BACTERIAL PERITONITIS
[2018-06-06] MEDS ORDERED: ALBUMIN HUMAN 25% 12.5 GM/50 ML VIAL IVPB SCH (16:00)
--- NOTE | 2018-06-06 16:36 | PN ---
Physical Exam: SUBJECTIVE: Patient seen and examined by me at bedside. Patient reports prior to admission he was able to walk but is too weak to walk now States chest pain has resolved after starting Celexa and Buspar Otherwise, patient denies fever, chills, nausea, vomiting, abdominal pain, chest pain, palpitations, headaches, acute vision changes, urinary symptoms. OBJECTIVE: Vital Signs Period Temp Pulse Resp BP Sys/Emery Pulse Ox Last 24 Hr 97.8 F-98.1 F 0-83 18-20 92-123/44-68 100-100 GENERAL: The patient is awake, alert, frail looking and fully oriented, in no acute distress. EYES: Sclera anicteric, conjunctiva clear. No ptosis. ENT:Moist mucous membranes. LUNGS: Breath sounds equal, clear to auscultation bilaterally, no wheezes, no crackles, no accessory muscle use. HEART: Regular rate and rhythm, S1, S2 with (+) JOSIE ABDOMEN: Soft, nontender, nondistended, normoactive bowel sounds (+) vertical incisional scar C/D/I EXTREMITIES: No edema. (+) Stage II ulcer of left heel and second toe SKIN: Warm, dry, normal turgor, no rashes or lesions noted Laboratory Tests 06/06/18 08:40 06/06/18 11:42 06/06/18 09:50 PT with INR 16.20 H INR 1.37 H Active Medications Generic Name Dose Route Start Last Admin Trade Name Freq PRN Reason Stop Dose Admin Acetaminophen 650 mg 06/02/18 08:58 06/05/18 09:58 Tylenol - PO 650 mg Q4H PRN Administration HEADACHE Albumin Human 12.5 gm 06/06/18 16:00 Albumin Human 25% IVPB Q30M JULIAN Amiodarone HCl 200 mg 06/01/18 11:21 06/06/18 09:58 Cordarone - PO Not Given DAILY JULIAN Buspirone HCl 10 mg 06/03/18 14:00 06/06/18 14:26 Buspar - PO 10 mg TID JULIAN Administration Calcium Carbonate 500 mg 06/01/18 16:30 06/06/18 14:26 Os-Merlin 500mg - PO 500 mg TIDAC JULIAN Administration Citalopram Hydrobromide 20 mg 06/01/18 13:15 06/06/18 14:26 Celexa - PO 20 mg DAILY JULIAN Administration Collagenase 1 applic 06/01/18 17:15 06/06/18 09:59 Santyl - TP Not Given DAILY JULIAN Protocol Cyanocobalamin 100 mcg 06/01/18 13:15 06/06/18 14:26 Vitamin B12 - PO 100 mcg DAILY JULIAN Administration Folic Acid 1 mg 06/01/18 13:15 06/06/18 14:26 Folic Acid - PO 1 mg DAILY JULIAN Administration Piperacillin Sod/Tazobactam 50 mls @ 100 mls/hr 06/02/18 18:00 06/06/18 09:59 Sod 2.25 gm/ Dextrose IVPB Not Given Q8H-IV JULIAN Protocol Sodium Chloride 250 mls @ 3,000 mls/hr 06/05/18 15:57 Normal Saline - IV 06/06/18 15:57 PRN PRN Hypotension during Dialysis Levothyroxine Sodium 100 mcg 06/05/18 06:00 06/06/18 05:57 Synthroid - PO Not Given DAILY@0600 JULIAN Midodrine 5 mg 06/01/18 14:00 06/06/18 14:26 Proamatine - PO 5 mg TID-MID JULIAN Administration Multivit/Ca Carb/B Cmplx/FA/Prenat 1 tablet 06/01/18 13:30 06/06/18 14:26 Nephro-Zane - PO 1 tablet DAILY JULIAN Administration ASSESSMENT/PLAN: Patienti s a 67 year old male with a PMHx of CAD s/p CABG, Defibrillator ( [employer]), COPD (on 2-3L Home O2), ESRD (On HD // via Right Tunnel Cath), CHF presents from [facility]) with Chest pain. #Loculated Ascites -Concerning for SMP -Continue Zosyn 2.25gm Q8H (Day #4) -ID following -HIV and Hep negative -Paracentesis pending #Supratherapeutic INR- Improved -Today 1.37 -Patient no longer requires Eliquis, as per oncology -Continue to monitor #Hypotension -Continue Midodrine -Patient with low BP today # Chest pain -Likely due to anxiety. -Troponin x 3 negative. EKG: Sinus rhythm no ST or T wave changes, unlikely ACS #ESRD -HD today -Epogen for anemia -Will need follow up with Dr Woodard for fistula #CAD -Holding Coreg due to hypotension -Continue Amiodarone Acute on Chronic systolic CHF -Improved -No SOB today -Continue HD to remove fluid -On no ARB/DELANO or BB due to low BP #Hypothyroidism -Continue Synthroid #Anxiety -Continue Buspar and Celexa #F/E/N -On no fluids -Electrolytes wnl -Sodium controlled diet #Prophylaxis -SCD's for DVT. -No GI required #Disposition -Full code -Pending Paracentesis tomorrow Mindy Floyd MD-PGY3 Visit type - Emergency Visit Emergency Visit: Yes ED Registration Date: 05/31/18 Care time: The patient presented to the Emergency Department on the above date and was hospitalized for further evaluation of their emergent condition. - New Patient This patient is new to me today: Yes Date on this admission: 06/06/18 - Critical Care Critical Care patient: No
[2018-06-07] MEDS ORDERED: DEXTROSE 5%-WATER - 50 ML IVPB ONE ×2 (00:46→09:40)
[2018-06-07] MEDS ORDERED: PIPERACILLIN/TAZOBACTAM 2.25 GM VIAL IVPB ONE ×2 (00:46→09:40)
[2018-06-07] MEDS: PIPERACILLIN/TAZOB 2.25 GM 2.25 GM in DEXTROSE 5%-WATER - 50 ML IVPB SCH ×2 (01:25→09:57)
[2018-06-07] MEDS: ACETAMINOPHEN 325 MG TABLET (FP) PO PRN ×2 (02:54→22:36)
[2018-06-07] MEDS: busPIRone HCL 10 MG TABLET (FP) PO SCH ×3 (05:56→22:36)
[2018-06-07] MEDS: LEVOTHYROXINE NA 100 MCG TABLET (FP) PO SCH (05:56)
[2018-06-07 06:14] LABS: BASO % 1.2 % (0-2.0); EOS % 0.7 % (0-4.5); HEMATOCRIT 28.6 % (35.4-49); HEMOGLOBIN 9.4 GM/dL (11.7-16.9); LYMPH % 9.8 % (8-40); MCH 29.8 pg (25.7-33.7); MEAN CELL VOLUME 90.3 fl (80-96); MONO % 8.3 % (3.8-10.2); PLATELET COUNT 156 K/MM3 (134-434); RBC 3.16 M/mm3 (4.00-5.60); RDW 18.6 % (11.9-15.9); WHITE BLOOD COUNT 7.4 K/mm3 (4.0-10.0)
[2018-06-07] MEDS: CALCIUM (OYSTER SHELL) 500 MG TABLET (FP) PO SCH ×3 (06:27→18:39)
[2018-06-07 06:32] LABS: ANION GAP 8 MMOL/L (8-16); BLOOD UREA NITROGEN 20 mg/dL (7-18); CALCIUM 7.7 mg/dL (8.5-10.1); CHLORIDE 101 mmol/L (98-107); CO2 30 mmol/L (21-32); CREATININE 3.6 mg/dL (0.55-1.3); GLUCOSE,RANDOM 150 mg/dL (74-106); MAGNESIUM 1.9 mg/dL (1.8-2.4); PHOSPHOROUS 2.7 mg/dL (2.5-4.9); POTASSIUM 3.4 mmol/L (3.5-5.1); SODIUM 139 mmol/L (136-145)
[2018-06-07 06:44] LABS: INR 1.39 (0.83-1.09); PROTHROMBIN TIME (PATIENT) 16.4 SEC (9.7-13.0)
[2018-06-07 06:46] LABS: ACTIVATED PTT 31.1 SECONDS (25.2-36.5)
--- NOTE | 2018-06-07 07:56 | PN ---
Physical Exam: SUBJECTIVE: Patient seen and examined by me at bedside. No acute events overnight. Reports he's having full body aches, especially his back due to the bed. Patient's family did bring in a foam mattress support. Patient also reports multiple episodes of watery diarrhea in the past 24 hours, confirmed by nurse Otherwise, patient denies any chest pain, palpitations, shortness of breath, fever, chills, nausea, vomiting, headaches, acute vision changes. OBJECTIVE: Vital Signs Period Temp Pulse Resp BP Sys/Emery Pulse Ox Last 24 Hr 97.5 F-98 F 0-98 18-20 92-126/44-68 100-100 GENERAL: The patient is awake, alert, frail looking and fully oriented, in no acute distress. EYES: Sclera anicteric, conjunctiva clear. No ptosis. ENT: Moist mucous membranes. LUNGS: bibasilar fine rales with no wheezing or no accessory muscle use. HEART: Regular rate and rhythm, S1, S2 with (+) JOSIE ABDOMEN: Soft, nontender, nondistended, normoactive bowel sounds (+) vertical incisional scar C/D/I EXTREMITIES: No edema. (+) Stage II ulcer of left heel and second toe SKIN: Warm, dry, normal turgor, no rashes or lesions noted Laboratory Results 06/07/18 05:30 06/07/18 05:30 06/07/18 06/07/18 05:30 05:30 PT with INR 16.40 H INR 1.39 H Phosphorus 2.7 Magnesium 1.9 Active Medications Generic Name Dose Route Start Last Admin Trade Name Freq PRN Reason Stop Dose Admin Acetaminophen 650 mg 06/02/18 08:58 06/07/18 02:54 Tylenol - PO 650 mg Q4H PRN Administration HEADACHE Albumin Human 12.5 gm 06/06/18 16:00 Albumin Human 25% IVPB Q30M JULIAN Amiodarone HCl 200 mg 06/01/18 11:21 06/06/18 09:58 Cordarone - PO Not Given DAILY JULIAN Buspirone HCl 10 mg 06/03/18 14:00 06/07/18 05:56 Buspar - PO 10 mg TID JULIAN Administration Calcium Carbonate 500 mg 06/01/18 16:30 06/07/18 06:27 Os-Merlin 500mg - PO 500 mg TIDAC JULIAN Administration Citalopram Hydrobromide 20 mg 06/01/18 13:15 06/06/18 14:26 Celexa - PO 20 mg DAILY JULIAN Administration Collagenase 1 applic 06/01/18 17:15 06/06/18 09:59 Santyl - TP Not Given DAILY JULIAN Protocol Cyanocobalamin 100 mcg 06/01/18 13:15 06/06/18 14:26 Vitamin B12 - PO 100 mcg DAILY JULIAN Administration Folic Acid 1 mg 06/01/18 13:15 06/06/18 14:26 Folic Acid - PO 1 mg DAILY JULIAN Administration Piperacillin Sod/Tazobactam 50 mls @ 100 mls/hr 06/02/18 18:00 06/07/18 01:25 Sod 2.25 gm/ Dextrose IVPB 100 mls/hr Q8H-IV JULIAN Administration Protocol Sodium Chloride 250 mls @ 3,000 mls/hr 06/05/18 15:57 Normal Saline - IV 06/06/18 15:57 PRN PRN Hypotension during Dialysis Levothyroxine Sodium 100 mcg 06/05/18 06:00 06/07/18 05:56 Synthroid - PO 100 mcg DAILY@0600 JULIAN Administration Midodrine 5 mg 06/01/18 14:00 06/06/18 17:14 Proamatine - PO Not Given TID-MID JULIAN Multivit/Ca Carb/B Cmplx/FA/Prenat 1 tablet 06/01/18 13:30 06/06/18 14:26 Nephro-Zane - PO 1 tablet DAILY JULIAN Administration ASSESSMENT/PLAN: Patient is a 67 year old male with a PMHx of CAD s/p CABG, Defibrillator ( [employer]), COPD (on 2-3L Home O2), ESRD (On HD // via Right Tunnel Cath), CHF presents from [facility] with Chest pain. #Loculated Ascites -Discontinued antibiotics today, as per ID. Will monitor off abx -ID following -Paracentesis to be done today with fluid analysis ordered #Supratherapeutic INR- Improved -Today 1.39 -Patient no longer requires Eliquis, as per oncology. Will continue to monitor off of it -Continue to monitor Diarrhea -Possibly infectious vs mechanical. Rule out C.diff. Possibly from recent colectomy -Cdiff and stool cultures/stain sent -Continue to monitor #Filling defect SVC/Left brachiocephalic -Shown on CTA chest report from 05/23/2018 -Will check UE duplex of neck #Hypotension -Continue Midodrine -Patient with low BP today but has improved -Continue to monitor # Chest pain -Likely due to anxiety. -Troponin x 3 negative. EKG: Sinus rhythm no ST or T wave changes, unlikely ACS -Denies any chest pain, especially after celexa was given #ESRD -HD done yesterday and scheduled for tomorrow -Epogen for anemia -Will need follow up with Dr Woodard for fistula #CAD -Holding Coreg due to hypotension -Continue Amiodarone as patient has history of shocks from ICD Acute on Chronic systolic CHF -Improved -No SOB today -Continue HD to remove fluid -On no ARB/DELANO or BB due to low BP #Hypothyroidism -TSH elevated -Free T4 and T3 pending -Endocrinology consult placed #Anxiety -Continue Buspar and Celexa #Mesentric ischemia s/p right hemicolectomy #F/E/N -On no fluids -Hypokalemia. -Sodium controlled diet #Prophylaxis -SCD's for DVT. -No GI required #Disposition -Full code -Pending Paracentesis. Mindy Floyd MD-PGY3 Visit type - Emergency Visit Emergency Visit: Yes ED Registration Date: 05/31/18 Care time: The patient presented to the Emergency Department on the above date and was hospitalized for further evaluation of their emergent condition. - New Patient This patient is new to me today: No - Critical Care Critical Care patient: No
--- NOTE | 2018-06-07 09:34 | PN ---
Progress Note (short form) - Note Progress Note: Chief Complaint: sob History of Present Illness: sob improved, no cp, palps, dizziness, edema Current Medications Acetaminophen (Tylenol -) 650 mg PO Q4H PRN PRN Reason: HEADACHE Last Admin: 06/07/18 02:54 Dose: 650 mg Albumin Human (Albumin Human 25%) 12.5 gm IVPB Q30M ON LICENSE OF [facility] Amiodarone HCl (Cordarone -) 200 mg PO DAILY ON LICENSE OF [facility] Last Admin: 06/06/18 09:58 Dose: Not Given Buspirone HCl (Buspar -) 10 mg PO TID ON LICENSE OF [facility] Last Admin: 06/07/18 05:56 Dose: 10 mg Calcium Carbonate (Os-Merlin 500mg -) 500 mg PO TIDAC ON LICENSE OF [facility] Last Admin: 06/07/18 06:27 Dose: 500 mg Citalopram Hydrobromide (Celexa -) 20 mg PO DAILY ON LICENSE OF [facility] Last Admin: 06/06/18 14:26 Dose: 20 mg Collagenase (Santyl -) 1 applic TP DAILY ON LICENSE OF [facility]; Protocol Last Admin: 06/06/18 09:59 Dose: Not Given Cyanocobalamin (Vitamin B12 -) 100 mcg PO DAILY ON LICENSE OF [facility] Last Admin: 06/06/18 14:26 Dose: 100 mcg Folic Acid (Folic Acid -) 1 mg PO DAILY ON LICENSE OF [facility] Last Admin: 06/06/18 14:26 Dose: 1 mg Piperacillin Sod/Tazobactam (Sod 2.25 gm/ Dextrose) 50 mls @ 100 mls/hr IVPB Q8H-IV ON LICENSE OF [facility]; Protocol Last Admin: 06/07/18 01:25 Dose: 100 mls/hr Sodium Chloride (Normal Saline -) 250 mls @ 3,000 mls/hr IV PRN PRN PRN Reason: Hypotension during Dialysis Stop: 06/06/18 15:57 Levothyroxine Sodium (Synthroid -) 100 mcg PO DAILY@0600 ON LICENSE OF [facility] Last Admin: 06/07/18 05:56 Dose: 100 mcg Midodrine (Proamatine -) 5 mg PO TID-MID ON LICENSE OF [facility] Last Admin: 06/06/18 17:14 Dose: Not Given Multivit/Ca Carb/B Cmplx/FA/Prenat (Nephro-Zane -) 1 tablet PO DAILY ON LICENSE OF [facility] Last Admin: 06/06/18 14:26 Dose: 1 tablet - Objective Vital Signs: Vital Signs Period Temp Pulse Resp BP Sys/Emery Pulse Ox Last 24 Hr 97.5 F-98 F 0-98 18-18 92-126/42-65 100-100 Constitutional: Yes: Well Nourished, No Distress, Calm Cardiovascular: Yes: Regular Rate and Rhythm, JVD (probably mild), S1, S2. No: Gallop, Murmur Respiratory: Yes: Regular, CTA Bilaterally. No: Accessory Muscle Use, Rales, Wheezes Extremities: No: Cold Edema: No Neurological: Yes: Alert, Oriented Psychiatric: No: Agitated Assessment/Plan echo 05/2018 nl LV size, mildly reduced function EF 45-50%, mild global hypokinesis of LV, nl RV, ppm lead in RV and RA, tr TR EKG: sinus, prolonged QTC, old septal infarct CXR: blunting of R costophrenic angle. o/w clear CT abd: large ascites, small pneumoperitoneum, bilateral flank soft tissue edema tele: sr acute on chronic systolic HF, large ascites, bilat flank soft tissue edema - CT findings as above--right >> left sided volume overload. ? related to TSH of 14. ? 3rd spacing (albumin borderline) - mildly reduced EF on echo - sob improved --cont volume management per renal via HD - workup and management of ascites per hospitalist, surgery (following) - not on DELANO/BB due to low BP - no signs ACS with neg troponins ESRD on HD - plan per renal Prolonged QTc - avoid QT prolonging agents - maintain K >4, Mg >2 s/p ICD ([employer]) - implanted for CHF, ischemic cardiomyopathy in 2012 - outpatient follow up, Dr. Stover - recent device checks unremarkable per patient hypotension history - bp stable here - continue midodrine - holding ACEI, BB ESRD on HD - renal consulted CAD, s/p CABG - cont statin - holding aspirin, elevated INR and anemia mesenteric ischemia - recent dx, s/p surgery during recent admission for hip fx, was started on eliquis - holding eliquis due to elevated INR and anemia - per Dr. Stover no AF previously noted on ICD anemia - workup and management per primary
[2018-06-07] MEDS: FOLIC ACID 1 MG TABLET (FP) PO SCH (09:57)
[2018-06-07] MEDS: AMIODARONE HCL 200 MG TABLET (FP) PO SCH (09:58)
[2018-06-07] MEDS: VITAMIN B COMP W-C 1 EA TABLET PO SCH (09:58)
[2018-06-07] MEDS: CYANOCOBALAMIN (VITAMIN B-12) 100 MCG TABLET PO SCH (09:58)
[2018-06-07] MEDS: COLLAGENASE CLOSTRIDIUM HIST. 30 GRAMS TUBE TP SCH (09:58)
[2018-06-07] MEDS: CITALOPRAM HYDROBROMIDE 20 MG TABLET (FP) PO SCH (09:59)
[2018-06-07] MEDS: MIDODRINE HCL 5 MG TABLET PO SCH ×3 (09:59→18:39)
--- NOTE | 2018-06-07 11:34 | PN ---
Progress Note, Physician History of Present Illness: stable no new issues cx reports from previous hospital from tap noted no abd pain - Current Medication List Current Medications: Active Medications Acetaminophen (Tylenol -) 650 mg PO Q4H PRN PRN Reason: HEADACHE Last Admin: 06/07/18 02:54 Dose: 650 mg Albumin Human (Albumin Human 25%) 12.5 gm IVPB Q30M [facility] Amiodarone HCl (Cordarone -) 200 mg PO DAILY [facility] Last Admin: 06/07/18 09:58 Dose: 200 mg Buspirone HCl (Buspar -) 10 mg PO TID [facility] Last Admin: 06/07/18 05:56 Dose: 10 mg Calcium Carbonate (Os-Merlin 500mg -) 500 mg PO TIDAC [facility] Last Admin: 06/07/18 06:27 Dose: 500 mg Citalopram Hydrobromide (Celexa -) 20 mg PO DAILY [facility] Last Admin: 06/07/18 09:59 Dose: 20 mg Collagenase (Santyl -) 1 applic TP DAILY [facility]; Protocol Last Admin: 06/07/18 09:58 Dose: 1 applic Cyanocobalamin (Vitamin B12 -) 100 mcg PO DAILY [facility] Last Admin: 06/07/18 09:58 Dose: 100 mcg Folic Acid (Folic Acid -) 1 mg PO DAILY [facility] Last Admin: 06/07/18 09:57 Dose: 1 mg Sodium Chloride (Normal Saline -) 250 mls @ 3,000 mls/hr IV PRN PRN PRN Reason: Hypotension during Dialysis Stop: 06/06/18 15:57 Levothyroxine Sodium (Synthroid -) 100 mcg PO DAILY@0600 [facility] Last Admin: 06/07/18 05:56 Dose: 100 mcg Midodrine (Proamatine -) 5 mg PO TID-MID [facility] Last Admin: 06/07/18 09:59 Dose: 5 mg Multivit/Ca Carb/B Cmplx/FA/Prenat (Nephro-Zane -) 1 tablet PO DAILY [facility] Last Admin: 06/07/18 09:58 Dose: 1 tablet - Objective Vital Signs: Vital Signs Temperature 97.5 F L 06/07/18 06:33 Pulse Rate 74 06/07/18 06:33 Respiratory Rate 18 06/07/18 09:19 Blood Pressure 93/42 L 06/07/18 09:19 O2 Sat by Pulse Oximetry (%) 100 06/07/18 08:46 Constitutional: Yes: No Distress, Calm Cardiovascular: Yes: S1, S2 Respiratory: Yes: Regular, CTA Bilaterally Gastrointestinal: Yes: Normal Bowel Sounds, Soft Musculoskeletal: Yes: WNL Extremities: Yes: Other Neurological: Yes: Alert, Oriented Psychiatric: Yes: Alert, Oriented Labs: CBC, BMP 06/07/18 05:30 06/07/18 05:30 INR, PTT INR 1.39 (0.83-1.09) H 06/07/18 05:30 Assessment/Plan ASSESSMENT AND PLAN: (1) Hypotension Code(s): I95.9 - HYPOTENSION, UNSPECIFIED (2) ESRD (end stage renal disease) Code(s): N18.6 - END STAGE RENAL DISEASE (3) Ascites Code(s): R18.8 - OTHER ASCITES (4) Supratherapeutic INR Code(s): R79.1 - ABNORMAL COAGULATION PROFILE (5) CAD (coronary artery disease) Code(s): I25.10 - ATHSCL HEART DISEASE OF [place] CORONARY ARTERY W/O ANG PCTRS (6) CHF (congestive heart failure) Code(s): I50.9 - HEART FAILURE, UNSPECIFIED Qualifiers: Heart failure chronicity: acute on chronic (7) Hypothyroid Code(s): E03.9 - HYPOTHYROIDISM, UNSPECIFIED (8) SBP (secondary bacterial peritonitis) Code(s): K65.2 - SPONTANEOUS BACTERIAL PERITONITIS (9) Anxiety -consult psychiatry 10 b/l heel ulcer plan will stop abx awaiting for tapping rest as per the tem patient improving
[2018-06-07] MEDS ORDERED: SODIUM CHLORIDE 250 ML IV PRN (11:41)
--- NOTE | 2018-06-07 11:41 | PN ---
Progress Note, Physician History of Present Illness: Pt seen and examined at bedside. He is awake and alert. He had a prbc transfusion yesterday. - Current Medication List Current Medications: Active Medications Acetaminophen (Tylenol -) 650 mg PO Q4H PRN PRN Reason: HEADACHE Last Admin: 06/07/18 02:54 Dose: 650 mg Albumin Human (Albumin Human 25%) 12.5 gm IVPB Q30M [facility] Amiodarone HCl (Cordarone -) 200 mg PO DAILY [facility] Last Admin: 06/07/18 09:58 Dose: 200 mg Buspirone HCl (Buspar -) 10 mg PO TID [facility] Last Admin: 06/07/18 05:56 Dose: 10 mg Calcium Carbonate (Os-Merlin 500mg -) 500 mg PO TIDAC [facility] Last Admin: 06/07/18 06:27 Dose: 500 mg Citalopram Hydrobromide (Celexa -) 20 mg PO DAILY [facility] Last Admin: 06/07/18 09:59 Dose: 20 mg Collagenase (Santyl -) 1 applic TP DAILY [facility]; Protocol Last Admin: 06/07/18 09:58 Dose: 1 applic Cyanocobalamin (Vitamin B12 -) 100 mcg PO DAILY [facility] Last Admin: 06/07/18 09:58 Dose: 100 mcg Folic Acid (Folic Acid -) 1 mg PO DAILY [facility] Last Admin: 06/07/18 09:57 Dose: 1 mg Sodium Chloride (Normal Saline -) 250 mls @ 3,000 mls/hr IV PRN PRN PRN Reason: Hypotension during Dialysis Stop: 06/06/18 15:57 Levothyroxine Sodium (Synthroid -) 100 mcg PO DAILY@0600 [facility] Last Admin: 06/07/18 05:56 Dose: 100 mcg Midodrine (Proamatine -) 5 mg PO TID-MID [facility] Last Admin: 06/07/18 09:59 Dose: 5 mg Multivit/Ca Carb/B Cmplx/FA/Prenat (Nephro-Zane -) 1 tablet PO DAILY [facility] Last Admin: 06/07/18 09:58 Dose: 1 tablet - Objective Vital Signs: Vital Signs Temperature 97.5 F L 06/07/18 06:33 Pulse Rate 74 06/07/18 06:33 Respiratory Rate 18 06/07/18 09:19 Blood Pressure 93/42 L 06/07/18 09:19 O2 Sat by Pulse Oximetry (%) 100 06/07/18 08:46 Constitutional: Yes: Calm Eyes: Yes: Conjunctiva Clear HENT: Yes: Atraumatic Neck: Yes: Supple Cardiovascular: Yes: S1, S2 Respiratory: Yes: CTA Bilaterally, On Nasal O2 Gastrointestinal: Yes: Soft, Other (abd scars) Genitourinary: Yes: Incontinence Musculoskeletal: Yes: Muscle Weakness Edema: No Neurological: Yes: Oriented Psychiatric: Yes: Oriented Labs: CBC, BMP 06/07/18 05:30 06/07/18 05:30 INR, PTT INR 1.39 (0.83-1.09) H 06/07/18 05:30 Assessment/Plan Current Medications Generic Name Dose Route Start Last Admin Trade Name Freq PRN Reason Stop Dose Admin Acetaminophen 650 mg 06/02/18 08:58 06/07/18 02:54 Tylenol - PO 650 mg Q4H PRN Administration HEADACHE Albumin Human 12.5 gm 06/06/18 16:00 Albumin Human 25% IVPB Q30M [facility] Amiodarone HCl 200 mg 06/01/18 11:21 06/07/18 09:58 Cordarone - PO 200 mg DAILY [facility] Administration Buspirone HCl 10 mg 06/03/18 14:00 06/07/18 05:56 Buspar - PO 10 mg TID [facility] Administration Calcium Carbonate 500 mg 06/01/18 16:30 06/07/18 06:27 Os-Merlin 500mg - PO 500 mg TIDAC [facility] Administration Citalopram Hydrobromide 20 mg 06/01/18 13:15 06/07/18 09:59 Celexa - PO 20 mg DAILY [facility] Administration Collagenase 1 applic 06/01/18 17:15 06/07/18 09:58 Santyl - TP 1 applic DAILY [facility] Administration Protocol Cyanocobalamin 100 mcg 06/01/18 13:15 06/07/18 09:58 Vitamin B12 - PO 100 mcg DAILY [facility] Administration Folic Acid 1 mg 06/01/18 13:15 06/07/18 09:57 Folic Acid - PO 1 mg DAILY [facility] Administration Sodium Chloride 250 mls @ 3,000 mls/hr 06/05/18 15:57 Normal Saline - IV 06/06/18 15:57 PRN PRN Hypotension during Dialysis Levothyroxine Sodium 100 mcg 06/05/18 06:00 06/07/18 05:56 Synthroid - PO 100 mcg DAILY@0600 [facility] Administration Midodrine 5 mg 06/01/18 14:00 06/07/18 09:59 Proamatine - PO 5 mg TID-MID [facility] Administration Multivit/Ca Carb/B Cmplx/FA/Prenat 1 tablet 06/01/18 13:30 06/07/18 09:58 Nephro-Zane - PO 1 tablet DAILY [facility] Administration Impression 1. ESRD 2. CAD 3. CABG 4. COPD 5. CHF 6. SBP 7. DVT 8. hx mesinteric ischemia 9. hypothyroidism 10. gout 11. hld 12. pleural effusion 13. anemia Plan - HD in am - hg improved - cont epogen - pending placement for HD - will need follow up with Dr Woodard for fistula once stable - will follow Dr Jones
--- NOTE | 2018-06-07 12:10 | PN ---
Teaching Attending Note Name of Resident: Mindy Floyd ATTENDING PHYSICIAN STATEMENT I saw and evaluated the patient. I reviewed the resident's note and discussed the case with the resident. I agree with the resident's findings and plan as documented with exceptions below. SUBJECTIVE: Patient seen and examined. Occasional abdominal pain, overall unchanged. Has been having multiple episodes of watery non bloody diarrhea. NO fevers, chills, dyspnea, new chest pain or concerns otherwise. Occasionally anxious. Tolerating diet well. OBJECTIVE: Vital Signs Period Temp Pulse Resp BP Sys/Emery Pulse Ox Last 24 Hr 97.5 F-98 F 71-98 18-18 93-126/42-58 100-100 Intake & Output 06/04/18 06/05/18 06/06/18 06/07/18 23:59 23:59 23:59 23:59 Intake Total 640 400 130 450 Balance 640 400 130 450 Weight 200 lb 6.4 oz 200 lb 12.8 oz 202 lb 6.4 oz General: lying in bed in no acute distress Neck: soft, supple, no JVD Chest: bibasilar fine rales, no wheezing, good air entry Abdomen:Soft, distended, midline surgical scar, no active discharge/erythema or bleed, mild vague tenderness around the scar, no voluntary or involuntary guarding or rigidity, positive bowel sounds Extremities: no edema Home Medications Medication Instructions Recorded Allopurinol [Zyloprim -] 1 tab PO DAILY 03/17/18 Amiodarone HCl 1 tab PO DAILY 03/17/18 Aspirin [ASA -] 81 mg PO DAILY 03/17/18 Carvedilol 1 tab PO BID 03/17/18 Levothyroxine [Synthroid -] 1 tab PO DAILY 03/17/18 Pravastatin Sodium [Pravachol -] 1 tab PO DAILY 03/17/18 Zolpidem Tartrate [Ambien Cr] 1 tab PO HS 03/17/18 Acetaminophen [Tylenol] 650 mg PO DAILY PRN 05/31/18 Apixaban [Eliquis -] 2.5 mg PO BID 05/31/18 Calcium Carbonate [Calcium] 500 mg PO AC 05/31/18 Citalopram Hydrobromide 20 mg PO DAILY 05/31/18 [Citalopram HBr] Cyanocobalamin [Vitamin B12 -] 100 mcg PO DAILY 05/31/18 Folic Acid - 1 mg PO DAILY 05/31/18 Melatonin/Pyridoxine HCl (B6) 1 each PO HS 05/31/18 [Melatonin 10 mg Tablet] Midodrine HCl [Proamatine -] 5 mg PO TID 05/31/18 Vit B Comp No.3/Folic/C/Biotin 1 each PO DAILY 05/31/18 [Krystina-Zane Rx Tablet] Active Medications Acetaminophen (Tylenol -) 650 mg PO Q4H PRN PRN Reason: HEADACHE Last Admin: 06/07/18 02:54 Dose: 650 mg Albumin Human (Albumin Human 25%) 12.5 gm IVPB Q30M [facility] Albumin Human (Albumin Human 25%) 12.5 gm IVPB Q30M [facility] Amiodarone HCl (Cordarone -) 200 mg PO DAILY [facility] Last Admin: 06/07/18 09:58 Dose: 200 mg Buspirone HCl (Buspar -) 10 mg PO TID [facility] Last Admin: 06/07/18 05:56 Dose: 10 mg Calcium Carbonate (Os-Merlin 500mg -) 500 mg PO TIDAC [facility] Last Admin: 06/07/18 06:27 Dose: 500 mg Citalopram Hydrobromide (Celexa -) 20 mg PO DAILY [facility] Last Admin: 06/07/18 09:59 Dose: 20 mg Collagenase (Santyl -) 1 applic TP DAILY [facility]; Protocol Last Admin: 06/07/18 09:58 Dose: 1 applic Cyanocobalamin (Vitamin B12 -) 100 mcg PO DAILY [facility] Last Admin: 06/07/18 09:58 Dose: 100 mcg Epoetin Josemanuel (Epogen -) 10,000 unit IVPUSH ONCE ONE Stop: 06/08/18 11:42 Folic Acid (Folic Acid -) 1 mg PO DAILY [facility] Last Admin: 06/07/18 09:57 Dose: 1 mg Sodium Chloride (Normal Saline -) 250 mls @ 3,000 mls/hr IV PRN PRN PRN Reason: Hypotension during Dialysis Stop: 06/06/18 15:57 Sodium Chloride (Normal Saline -) 250 mls @ 3,000 mls/hr IV PRN PRN PRN Reason: Hypotension during Dialysis Stop: 06/08/18 11:41 Levothyroxine Sodium (Synthroid -) 100 mcg PO DAILY@0600 [facility] Last Admin: 06/07/18 05:56 Dose: 100 mcg Midodrine (Proamatine -) 5 mg PO TID-MID [facility] Last Admin: 06/07/18 09:59 Dose: 5 mg Multivit/Ca Carb/B Cmplx/FA/Prenat (Nephro-Zane -) 1 tablet PO DAILY [facility] Last Admin: 06/07/18 09:58 Dose: 1 tablet Laboratory Results - last 24 hr 06/03/18 06/06/18 06/06/18 16:30 08:40 09:50 WBC 7.9 RBC 2.57 L Hgb 7.3 L Hct 24.0 L MCV 93.4 MCH 28.4 MCHC 30.4 L RDW 20.5 H Plt Count 160 MPV 8.0 Absolute Neuts (auto) 6.5 Neutrophils % 81.9 Lymphocytes % 8.4 Monocytes % 7.3 Eosinophils % 1.1 Basophils % 1.3 Nucleated RBC % 0 Hypochromia 0 Platelet Estimate Adequate Polychromasia 1+ Poikilocytosis 0 Anisocytosis 2+ Microcytosis 0 Macrocytosis 1+ Ovalocytes 1+ PT with INR 16.20 H INR 1.37 H PTT (Actin FS) Sodium Potassium Chloride Carbon Dioxide Anion Gap BUN Creatinine Creat Clearance w eGFR Random Glucose Calcium Phosphorus Magnesium Blood Type O POSITIVE Antibody Screen Negative Crossmatch See Detail 06/06/18 06/07/18 06/07/18 11:42 05:30 05:30 WBC 7.4 RBC 3.16 L Hgb 9.4 L Hct 28.6 L D MCV 90.3 MCH 29.8 MCHC 33.0 RDW 18.6 H Plt Count 156 MPV 8.0 Absolute Neuts (auto) 5.9 Neutrophils % 80.0 Lymphocytes % 9.8 Monocytes % 8.3 Eosinophils % 0.7 Basophils % 1.2 Nucleated RBC % 0 Hypochromia Platelet Estimate Polychromasia Poikilocytosis Anisocytosis Microcytosis Macrocytosis Ovalocytes PT with INR INR PTT (Actin FS) Sodium 139 Potassium 3.4 L Chloride 101 Carbon Dioxide 30 Anion Gap 8 BUN 10 20 H Creatinine 1.8 H 3.6 H Creat Clearance w eGFR 16.95 Random Glucose 150 H Calcium 7.7 L Phosphorus 2.7 Magnesium 1.9 Blood Type Antibody Screen Crossmatch 06/07/18 05:30 WBC RBC Hgb Hct MCV MCH MCHC RDW Plt Count MPV Absolute Neuts (auto) Neutrophils % Lymphocytes % Monocytes % Eosinophils % Basophils % Nucleated RBC % Hypochromia Platelet Estimate Polychromasia Poikilocytosis Anisocytosis Microcytosis Macrocytosis Ovalocytes PT with INR 16.40 H INR 1.39 H PTT (Actin FS) 31.1 Sodium Potassium Chloride Carbon Dioxide Anion Gap BUN Creatinine Creat Clearance w eGFR Random Glucose Calcium Phosphorus Magnesium Blood Type Antibody Screen Crossmatch Microbiology 06/01/18 13:40 Blood - Peripheral Venous Blood Culture - Final NO GROWTH AFTER 5 DAYS INCUBATION 06/01/18 13:50 Blood - Peripheral Venous Blood Culture - Final NO GROWTH AFTER 5 DAYS INCUBATION ASSESSMENT AND PLAN: 67 yom with PMhx of CAD s/p CABG 2005, chronic systolic HF s/p ICD ([employer]), COPD on chronic O2 2-3L, ESRD on HD, hypotension on midodrine, HTN , HLD, admitted to [facility] for hip fracture s/p ORIF, course complicated by mesentric ischemia, s/p right hemicolectomy, readmitted on 05/23/2018 with shortness of breath/nausea with HD, found with ascitis s/p paracentesis, cultures with Kleb Oxytoca, s/p ceftriaxone, d/dena on ?Cipro/flagyl x 7 days readmitted with chest pain/dyspnea/anxiety during HD, found with ascitis, elevated INR . -Dyspnea, acute on chronic systolic heart failure exacerbation, EF 45-50% -Chest pain, ?anxiety mediated, resolved -Elevated INR, suspect from passive hepatic congestion/Nutritional/Eliquis -Ascitis, r/o secondary bacterial peritonitis -Mesentric ischemia s/p right hemicolectomy -Diarrhea, ?from colectomy, r/o C difficile -?Filling defect SVC/Left brachiocephalic on CTA chest report from 05/23/2018 -CAD s/p CABG -ICD s/p reported h/o shocks on Amiodarone -COPD on 2-3 l home oxygen -Hypotension on Midodrine (off coreg/ACEi) -Hypothyroidism -Hypoalbuminemia -Anemia, suspect multifactorial s/p 1 unit PRBC 06/06 Plan: Abdominal exam benign currently. Surgery/GI/ID input noted. For IR guided paracentesis today, send fluid studies. ID input noted, off zosyn, monitor clinically. Check Stool C difficile. FOBT neg. s/p 1unit PRBC, appropriate response. HD per renal, ongoing fluid removal. Albumin/epoeitin per renal Cardiology input noted. Continue amiodarone. OFf coreg/ACEi for now given hypotension. Continue midodrine. Discussed with Dr. Doe about fpc AC, will check Duplex UE and neck for now. Eliquis on hold given elevated INR on admission, now pending further plans for intervention. TSH noted, check Free T4 and total T3. Endocrine input. DVTPPX sCDs dispo pending resolution of medical issues. PT eval. Add incentive spirometry Plan discussed with patient, all questions answered
--- NOTE | 2018-06-07 14:15 | PN ---
Progress Note, Physician History of Present Illness: Pt seen/examined at bedside, feeling better, reports generalized aches which he states is not new, also reports 2 episodes of loose stool this am, no blood, denies abdominal pain, n/v, fever/chills. HD yesterday, pending paracentesis today. - Current Medication List Current Medications: Active Medications Acetaminophen (Tylenol -) 650 mg PO Q4H PRN PRN Reason: HEADACHE Last Admin: 06/07/18 02:54 Dose: 650 mg Albumin Human (Albumin Human 25%) 12.5 gm IVPB Q30M [facility] Albumin Human (Albumin Human 25%) 12.5 gm IVPB Q30M [facility] Amiodarone HCl (Cordarone -) 200 mg PO DAILY [facility] Last Admin: 06/07/18 09:58 Dose: 200 mg Buspirone HCl (Buspar -) 10 mg PO TID [facility] Last Admin: 06/07/18 05:56 Dose: 10 mg Calcium Carbonate (Os-Merlin 500mg -) 500 mg PO TIDAC [facility] Last Admin: 06/07/18 12:42 Dose: Not Given Citalopram Hydrobromide (Celexa -) 20 mg PO DAILY [facility] Last Admin: 06/07/18 09:59 Dose: 20 mg Collagenase (Santyl -) 1 applic TP DAILY [facility]; Protocol Last Admin: 06/07/18 09:58 Dose: 1 applic Cyanocobalamin (Vitamin B12 -) 100 mcg PO DAILY [facility] Last Admin: 06/07/18 09:58 Dose: 100 mcg Epoetin Josemanuel (Epogen -) 10,000 unit IVPUSH ONCE ONE Stop: 06/08/18 11:42 Folic Acid (Folic Acid -) 1 mg PO DAILY [facility] Last Admin: 06/07/18 09:57 Dose: 1 mg Sodium Chloride (Normal Saline -) 250 mls @ 3,000 mls/hr IV PRN PRN PRN Reason: Hypotension during Dialysis Stop: 06/06/18 15:57 Sodium Chloride (Normal Saline -) 250 mls @ 3,000 mls/hr IV PRN PRN PRN Reason: Hypotension during Dialysis Stop: 06/08/18 11:41 Levothyroxine Sodium (Synthroid -) 100 mcg PO DAILY@0600 [facility] Last Admin: 06/07/18 05:56 Dose: 100 mcg Midodrine (Proamatine -) 5 mg PO TID-MID [facility] Last Admin: 06/07/18 09:59 Dose: 5 mg Multivit/Ca Carb/B Cmplx/FA/Prenat (Nephro-Zane -) 1 tablet PO DAILY [facility] Last Admin: 06/07/18 09:58 Dose: 1 tablet - Objective Vital Signs: Vital Signs Temperature 97.5 F L 06/07/18 06:33 Pulse Rate 74 06/07/18 06:33 Respiratory Rate 18 06/07/18 09:19 Blood Pressure 93/42 L 06/07/18 09:19 O2 Sat by Pulse Oximetry (%) 100 06/07/18 08:46 Constitutional: Yes: Well Nourished, No Distress, Calm Cardiovascular: Yes: WNL, Regular Rate and Rhythm Respiratory: Yes: WNL, Regular, CTA Bilaterally Gastrointestinal: Yes: WNL, Normal Bowel Sounds, Soft, Other (Abd soft, nt, nd) Edema: No Labs: CBC, BMP 06/07/18 05:30 06/07/18 05:30 INR, PTT INR 1.39 (0.83-1.09) H 06/07/18 05:30 Problem List - Problems (1) Ascites Assessment/Plan: 67 yo male h/o CAD s/p CABG (2005), CHF s/p ICD, COPD on chronic O2 2-3L, ESRD on HD, hypotension on midodrine, HTN, recently admitted to [facility] for hip fracture s/p ORIF, course complicated by mesenteric ischemia, s/p right hemicolectomy presenting with chest pain and sob with ascites of unclear exact etiology ?cardiac. No known h/o liver disease. Pending paracentesis today. Loose stool reported, no blood. -Follow up results of peritoneal fluid analysis - as previously noted, please send for cell count with diff, culture, cytology, albumin, total protein, LDH, glucose, AFB culture -Recommend check stool C difficile, ova/parasites if further loose stool, though may be component of bile salt diarrhea Code(s): R18.8 - OTHER ASCITES Qualifiers: Ascites type: other type Qualified Code(s): R18.8 - Other ascites
--- NOTE | 2018-06-07 17:09 | CONSULT ---
Consult Consult Specialty:: Endocrinology Referred by:: Dr Jurado Reason for Consultation:: Hypothyroidism - History of Present Illness Chief Complaint: Tiredness History of Present Illness: This is a 67 yo man with PMhx of CAD s/p CABG 2005, chronic systolic HF s/p ICD ([employer] COPD on chronic O2 2-3L, ESRD on HD, hypotension on midodrine, HTN, HLD, Hypothyroidism for about a year admitted to [facility] for hip fracture s/p ORIF, course complicated by mesentric ischemia, s/p right hemicolectomy, readmitted on 05/23/2018 with shortness of breath/nausea with HD, found with ascitis s/p paracentesis, cultures with Kleb Oxytoca, s/p ceftriaxone , d/dena on ?Cipro/flagyl x 7 days readmitted with chest pain/dyspnea/anxiety during HD, found with ascitis, elevated INR . Pt referred for evaluation of elevated TSH. Pt currently c/o Tiredness and loose BM. - History Source History Provided By: Patient, Family Member, Medical Record - Past Medical History Cardio/Vascular: Yes: CAD, CHF, Deep Vein Thrombosis, Hyperlipdemia Pulmonary: Yes: COPD, O2 Dependent (only since hospital in Apr per pt) Gastrointestinal: Yes: Other (mesenteric/bowel ischemia) Renal/: Yes: Renal Failure (ESRD on HD), Hemodialysis Psych: Yes: Anxiety Rheumatology: Yes: Gout Endocrine: Yes: Hypothyroidism - Past Surgical History Past Surgical History: Yes: AICD (2006), CABG (2005), Colectomy (jejunal and ileal resection with extended right hemicolectomy for ischemia 05/09). No: AV Fistula/Graft (planned but not yet done) Additional Surgical History: right wrist surgery w/hardware; right neck/chest permacath for HD; R hip ORIF 05/09 - Alcohol/Substance Use Hx Alcohol Use: No History of Substance Use: reports: None - Smoking History Smoking history: Former smoker Have you smoked in the past 12 months: No If you are a former smoker, when did you quit?: 12yrs - Social History Usual Living Arrangement: [facility] ADL: Support Services History of Recent Travel: No Home Medications - Allergies Allergies/Adverse Reactions: Allergies Allergy/AdvReac Type Severity Reaction Status Date / Time gluten Allergy Verified 05/31/18 19:44 No Known Drug Allergies Allergy Verified 05/31/18 19:44 - Home Medications Home Medications: Ambulatory Orders Allopurinol [Zyloprim -] 1 tab PO DAILY 03/17/18 Amiodarone HCl 1 tab PO DAILY 03/17/18 Aspirin [ASA -] 81 mg PO DAILY 03/17/18 Carvedilol 1 tab PO BID 03/17/18 Levothyroxine [Synthroid -] 1 tab PO DAILY 03/17/18 Pravastatin Sodium [Pravachol -] 1 tab PO DAILY 03/17/18 Zolpidem Tartrate [Ambien Cr] 1 tab PO HS 03/17/18 Acetaminophen [Tylenol] 650 mg PO DAILY PRN 05/31/18 Apixaban [Eliquis -] 2.5 mg PO BID 05/31/18 Calcium Carbonate [Calcium] 500 mg PO AC 05/31/18 Citalopram Hydrobromide [Citalopram HBr] 20 mg PO DAILY 05/31/18 Cyanocobalamin [Vitamin B12 -] 100 mcg PO DAILY 05/31/18 Folic Acid - 1 mg PO DAILY 05/31/18 Melatonin/Pyridoxine HCl (B6) [Melatonin 10 mg Tablet] 1 each PO HS 05/31/18 Midodrine HCl [Proamatine -] 5 mg PO TID 05/31/18 Vit B Comp No.3/Folic/C/Biotin [Krystina-Zane Rx Tablet] 1 each PO DAILY 05/31/18 Family Disease History - Family Disease History Family Disease History: Other: Daughter (Thyroid disorder ?type) Other Family History: No family history of colorectal cancer or other GI malignancy. Review of Systems - Review of Systems Constitutional: reports: Malaise, Weakness Eyes: reports: No Symptoms HENT: reports: No Symptoms Neck: reports: No Symptoms Cardiovascular: reports: No Symptoms Respiratory: reports: No Symptoms Gastrointestinal: reports: Diarrhea Genitourinary: reports: No Symptoms Musculoskeletal: reports: No Symptoms Integumentary: reports: No Symptoms Neurological: reports: No Symptoms Endocrine: reports: No Symptoms Hematology/Lymphatic: reports: No Symptoms Physical Exam Vital Signs: Vital Signs Temperature 97.9 F 06/07/18 15:04 Pulse Rate 69 06/07/18 15:04 Respiratory Rate 20 06/07/18 15:04 Blood Pressure 120/54 L 06/07/18 15:04 O2 Sat by Pulse Oximetry (%) 100 06/07/18 08:46 Constitutional: Yes: No Distress, Calm Eyes: Yes: Conjunctiva Clear, EOM Intact HENT: Yes: Atraumatic, Normocephalic Neck: Yes: Supple, Trachea Midline Cardiovascular: Yes: Regular Rate and Rhythm Respiratory: Yes: Regular, CTA Bilaterally Gastrointestinal: Yes: Normal Bowel Sounds, Soft Extremities: Yes: WNL, Other (Dressings over both heels) Edema: No Neurological: Yes: Alert, Oriented Labs: CBC, BMP 06/07/18 05:30 06/07/18 05:30 Assessment/Plan AP: Hypothyroidism: TSH 19.4 with FT4 1.15 in the hospital Will multiple GI issues pt had including Hemicolectomy, it is very likely that the elevated TSH is secondary to malabsorption of LT4 continue LT4 100 for now' Repeat TSH in 2 days. If not improvement in TSH will consider changing dose of LT4 ESRD CAD s/p CABG COPD CHF H/O mesinteric ischemia S/p Ex-Lap with resection of jejnum/ileum and extended right hemicolectomy HLD Anemia
[2018-06-07 17:35] LABS: BF WBC & OTHER NUCLEATED CELLS 68965 /mm3
--- NOTE | 2018-06-07 18:59 | PN ---
Progress Note, Physician History of Present Illness: Reviewed available records from [facility]; orthopedic op note is present, gen surg op notes are not, despite second request sent specifically for those. He is seen and examined in bed, sleeping but wakes while I'm there. He felt somewhat weak today, and is eating but not as well today. HD due tomorrow. Got blood but after HD yesterday, not with. Denies abdominal pain. Mother and daughter are at bedside. Daughter obtained multiple CDs from [facility] for us to review - will do so with radiology tomorrow. Pt had paracentesis today - spoke with Dr. Golden, who stated he has multiple loculated areas of fluid, difficult to find a window, but he got 60ml from right abdomen for cell counts and cultures, dark, turbid-appearing. There are numerous septations present on ultrasound. - Current Medication List Current Medications: Active Medications Acetaminophen (Tylenol -) 650 mg PO Q4H PRN PRN Reason: HEADACHE Last Admin: 06/07/18 02:54 Dose: 650 mg Albumin Human (Albumin Human 25%) 12.5 gm IVPB Q30M [facility] Amiodarone HCl (Cordarone -) 200 mg PO DAILY [facility] Last Admin: 06/07/18 09:58 Dose: 200 mg Buspirone HCl (Buspar -) 10 mg PO TID [facility] Last Admin: 06/07/18 14:39 Dose: 10 mg Calcium Carbonate (Os-Merlin 500mg -) 500 mg PO TIDAC [facility] Last Admin: 06/07/18 18:39 Dose: 500 mg Citalopram Hydrobromide (Celexa -) 20 mg PO DAILY [facility] Last Admin: 06/07/18 09:59 Dose: 20 mg Collagenase (Santyl -) 1 applic TP DAILY [facility]; Protocol Last Admin: 06/07/18 09:58 Dose: 1 applic Cyanocobalamin (Vitamin B12 -) 100 mcg PO DAILY [facility] Last Admin: 06/07/18 09:58 Dose: 100 mcg Epoetin Josemanuel (Epogen -) 10,000 unit IVPUSH ONCE ONE Stop: 06/08/18 11:42 Folic Acid (Folic Acid -) 1 mg PO DAILY [facility] Last Admin: 06/07/18 09:57 Dose: 1 mg Sodium Chloride (Normal Saline -) 250 mls @ 3,000 mls/hr IV PRN PRN PRN Reason: Hypotension during Dialysis Stop: 06/08/18 11:41 Levothyroxine Sodium (Synthroid -) 100 mcg PO DAILY@0600 [facility] Last Admin: 06/07/18 05:56 Dose: 100 mcg Midodrine (Proamatine -) 5 mg PO TID-MID [facility] Last Admin: 06/07/18 18:39 Dose: 5 mg Multivit/Ca Carb/B Cmplx/FA/Prenat (Nephro-Zane -) 1 tablet PO DAILY [facility] Last Admin: 06/07/18 09:58 Dose: 1 tablet - Objective Vital Signs: Vital Signs Temperature 97.9 F 06/07/18 15:04 Pulse Rate 69 06/07/18 15:04 Respiratory Rate 20 06/07/18 15:04 Blood Pressure 120/54 L 06/07/18 15:04 O2 Sat by Pulse Oximetry (%) 100 06/07/18 08:46 Constitutional: Yes: Well Nourished, No Distress, Calm Eyes: Yes: Conjunctiva Clear, EOM Intact HENT: Yes: Atraumatic, Normocephalic Respiratory: Yes: Cough (wet/productive), On Nasal O2 Gastrointestinal: Yes: Soft, Ascites, Distention, Other (healing incision). No : Tenderness Extremities: No: Cool, Cyanosis Integumentary: Yes: Incision (midline, healing). No: Jaundice, Rash Wound/Incision: Yes: Clean/Dry, Well Approximated, Open to air Neurological: Yes: Alert, Oriented Labs: CBC, BMP 06/07/18 05:30 06/07/18 05:30 INR, PTT INR 1.39 (0.83-1.09) H 06/07/18 05:30 Microbiology 06/01/18 13:40 Blood Culture - Final Blood - Peripheral Venous NO GROWTH AFTER 5 DAYS INCUBATION 06/01/18 13:50 Blood Culture - Final Blood - Peripheral Venous NO GROWTH AFTER 5 DAYS INCUBATION - ....Imaging Ultrasound: Image Reviewed (images from US guided paracentesis reviewed - numerous loculated/septated areas of fluid noted) Problem List - Problems (1) Ascites Assessment/Plan: s/p paracentesis 1/2 at [facility] by report, possibly source of air locules? vs infectious peritonitis pt on abx per ID no abdominal pain or tenderness, no contrast extravasation on CT, no wbc, no fevers tends to argue against active infectious process ascites may be related to CHF, passive liver congestion? reviewed records from [facility], do not have surgical operative notes from abdominal operations s/p paracentesis today of small amount dark turbid fluid for cultures and studies no acute surgical intervention indicated at this time will follow up cultures Code(s): R18.8 - OTHER ASCITES Qualifiers: Ascites type: other type Qualified Code(s): R18.8 - Other ascites (2) S/P partial colectomy Code(s): Z90.49 - ACQUIRED ABSENCE OF OTHER SPECIFIED PARTS OF DIGESTIVE TRACT (3) S/P small bowel resection Code(s): Z90.49 - ACQUIRED ABSENCE OF OTHER SPECIFIED PARTS OF DIGESTIVE TRACT (4) Supratherapeutic INR Code(s): R79.1 - ABNORMAL COAGULATION PROFILE (5) CAD (coronary artery disease) Code(s): I25.10 - ATHSCL HEART DISEASE OF [place] CORONARY ARTERY W/O ANG PCTRS Qualifiers: Coronary Disease-Associated Artery/Lesion type: [place] artery [place] vs. transplanted heart: [place] heart Associated angina: without angina Qualified Code(s): I25.10 - Atherosclerotic heart disease of [place] coronary artery without angina pectoris (6) CHF (congestive heart failure) Code(s): I50.9 - HEART FAILURE, UNSPECIFIED Qualifiers: Heart failure type: unspecified Heart failure chronicity: acute on chronic Qualified Code(s): I50.9 - Heart failure, unspecified (7) ESRD (end stage renal disease) Code(s): N18.6 - END STAGE RENAL DISEASE (8) Hypothyroid Code(s): E03.9 - HYPOTHYROIDISM, UNSPECIFIED Qualifiers: Hypothyroidism type: unspecified Qualified Code(s): E03.9 - Hypothyroidism , unspecified
[2018-06-07 20:56] LABS: BODY FLUID MACROPHAGES 2 %
[2018-06-07] MEDS ORDERED: PT OWN MED DRAWER 7, Y5N ONE (21:00)
[2018-06-08] MEDS: busPIRone HCL 10 MG TABLET (FP) PO SCH ×3 (05:26→21:19)
[2018-06-08] MEDS: LEVOTHYROXINE NA 100 MCG TABLET (FP) PO SCH (05:26)
[2018-06-08 06:22] LABS: EOS % 1.1 % (0-4.5); HEMATOCRIT 28.6 % (35.4-49); HEMOGLOBIN 9.5 GM/dL (11.7-16.9); LYMPH % 13.8 % (8-40); MCH 30.2 pg (25.7-33.7); MCHC 33.1 g/dl (32.0-35.9); MEAN CELL VOLUME 91.3 fl (80-96); MEAN PLT VOLUME 8.3 fl (7.5-11.1); MONO % 9.3 % (3.8-10.2); NEUT % 74.8 % (42.8-82.8); PLATELET COUNT 147 K/MM3 (134-434); RBC 3.13 M/mm3 (4.00-5.60); RDW 19.7 % (11.9-15.9); WHITE BLOOD COUNT 6.5 K/mm3 (4.0-10.0)
[2018-06-08] MEDS: ACETAMINOPHEN 325 MG TABLET (FP) PO PRN ×4 (06:34→21:19)
[2018-06-08 08:43] LABS: ALBUMIN 1.9 g/dl (3.4-5.0); ALK PHOS 108 U/L (45-117); ANION GAP 12 MMOL/L (8-16); BILIRUBIN,TOTAL 0.6 mg/dL (0.2-1); BLOOD UREA NITROGEN 28 mg/dL (7-18); CALCIUM 7.7 mg/dL (8.5-10.1); CHLORIDE 102 mmol/L (98-107); CO2 28 mmol/L (21-32); CREATININE 4.4 mg/dL (0.55-1.3); GLUCOSE,RANDOM 120 mg/dL (74-106); MAGNESIUM 1.7 mg/dL (1.8-2.4); PHOSPHOROUS 3.1 mg/dL (2.5-4.9); POTASSIUM 3.5 mmol/L (3.5-5.1); SGOT/AST 15 U/L (15-37); SGPT/ALT 15 U/L (13-61); SODIUM 141 mmol/L (136-145); TOT PROT 4.6 g/dl (6.4-8.2)
[2018-06-08] MEDS: CALCIUM (OYSTER SHELL) 500 MG TABLET (FP) PO SCH ×4 (08:48→17:57)
--- NOTE | 2018-06-08 08:49 | PN ---
GI Progress Note Subjective: No acute events Reviewed old records: did not see prior peritoneal fluid analysis or officiel culture reports Echo at [facility] revealed global mod to severe hypokinesis Fluid analysis s/p paracentesis at [facility]: WBC > 60K and predominantly neutrophils Denies abdominal pain - Objective Vital Signs: Vital Signs Temperature 97.9 F 06/08/18 05:35 Pulse Rate 73 06/08/18 05:35 Respiratory Rate 16 06/08/18 08:23 Blood Pressure 120/56 L 06/08/18 05:35 O2 Sat by Pulse Oximetry (%) 99 06/08/18 08:23 Constitutional: Calm Cardiovascular: Yes: Regular Rate and Rhythm Respiratory: No: Diminished Gastrointestinal Inspection: Yes: Distention (mildly proptuberant), Scars ...Auscultate: Yes: Normoactive Bowel Sounds ...Palpate: No: Hepatomegaly, Splenomegaly, Tenderness ...Percussion: No: Tympanitic Neurological: Yes: Alert Labs: CBC, BMP 06/08/18 05:30 INR, PTT INR 1.39 (0.83-1.09) H 06/07/18 05:30 Hepatic Panel Total Bilirubin 0.6 mg/dL (0.2-1) 06/08/18 05:30 AST 15 U/L (15-37) 06/08/18 05:30 ALT 15 U/L (13-61) 06/08/18 05:30 Alkaline Phosphatase 108 U/L (45-117) 06/08/18 05:30 Albumin 1.9 g/dl (3.4-5.0) L 06/08/18 05:30 Problem List - Problems (1) Ascites Assessment/Plan: Very high WBC count in current peritoneal fluid analysis. Unclear if this is trending down from recent paracentesis at [facility] as do not have prior fluid analysis for comparison. ? if ascites secondary post op in setting of chronic kidney disease, to preexisting and unknown chronic liver disease with decompensation s/p surgical interventions and subsequent perotinitis. Asymptomatic currently and off antibiotics. Would have ID reevaluate given current fluid analysis findings Culture is pending Follow-up peritoneal fluid chemistries Check LFTS this morning Obtain prior records of peritoneal fluid analysis /official culture report from [facility] Code(s): R18.8 - OTHER ASCITES Qualifiers: Ascites type: other type Qualified Code(s): R18.8 - Other ascites
[2018-06-08] MEDS ORDERED: PIPERACILLIN/TAZOB 2.25 GM 2.25 GM in DEXTROSE 5%-WATER - 50 ML IVPB ONE (10:38)
[2018-06-08] MEDS ORDERED: EPOETIN ALFA 10,000 UNIT/1 ML VIAL IVPUSH ONE (11:15)
[2018-06-08] MEDS: ALBUMIN HUMAN 25% 12.5 GM/50 ML VIAL IVPB SCH ×4 (11:15→12:45)
--- NOTE | 2018-06-08 11:39 | PN ---
Progress Note (short form) - Note Progress Note: s: no cp sob palps dizzy o: Vital Signs Period Temp Pulse Resp BP Sys/Emery Pulse Ox Last 24 Hr 97.1 F-98.0 F 55-78 16-21 110-126/47-68 98-100 Constitutional: Yes: Well Nourished, No Distress, Calm Eyes: Yes: Conjunctiva Clear, EOM Intact HENT: Yes: Atraumatic, Normocephalic Neck: Yes: Supple, Trachea Midline Respiratory: Yes: cta bl nl eff Gastrointestinal: Yes: Normal Bowel Sounds, Soft Cardiovascular: Yes: Regular Rate and Rhythm JVD: No Carotid Bruit: No PMI: Non-Displaced Heart Sounds: Yes: S1, S2 Musculoskeletal: No: Back Pain Extremities: No: Cold Edema: trace Peripheral Pulses: 2+ Left Doralis Pedis, 2+ Right Dorsalis Pedis Integumentary: No: Jaundice Neurological: Yes: Alert, Oriented Current Medications Generic Name Dose Route Start Last Admin Trade Name Freq PRN Reason Stop Dose Admin Acetaminophen 650 mg 06/02/18 08:58 06/08/18 10:28 Tylenol - PO 650 mg Q4H PRN Administration HEADACHE Albumin Human 12.5 gm 06/08/18 11:15 Albumin Human 25% IVPB 06/08/18 12:46 Q30M [facility] Amiodarone HCl 200 mg 06/01/18 11:21 06/07/18 09:58 Cordarone - PO 200 mg DAILY [facility] Administration Buspirone HCl 10 mg 06/03/18 14:00 06/08/18 05:26 Buspar - PO Not Given TID JULIAN Calcium Carbonate 500 mg 06/01/18 16:30 06/07/18 18:39 Os-Merlin 500mg - PO 500 mg TIDAC JULIAN Administration Citalopram Hydrobromide 20 mg 06/01/18 13:15 06/07/18 09:59 Celexa - PO 20 mg DAILY [facility] Administration Collagenase 1 applic 06/01/18 17:15 06/07/18 09:58 Santyl - TP 1 applic DAILY [facility] Administration Protocol Cyanocobalamin 100 mcg 06/01/18 13:15 06/07/18 09:58 Vitamin B12 - PO 100 mcg DAILY [facility] Administration Folic Acid 1 mg 06/01/18 13:15 06/07/18 09:57 Folic Acid - PO 1 mg DAILY [facility] Administration Sodium Chloride 250 mls @ 3,000 mls/hr 06/07/18 11:41 Normal Saline - IV 06/08/18 11:41 PRN PRN Hypotension during Dialysis Piperacillin Sod/Tazobactam 50 mls @ 100 mls/hr 06/08/18 10:38 Sod 2.25 gm/ Dextrose IVPB 06/08/18 11:07 ONCE ONE Protocol Levothyroxine Sodium 100 mcg 06/05/18 06:00 06/08/18 05:26 Synthroid - PO Not Given DAILY@0600 [facility] Midodrine 5 mg 06/08/18 10:00 Proamatine - PO TID-MID [facility] Multivit/Ca Carb/B Cmplx/FA/Prenat 1 tablet 06/01/18 13:30 06/07/18 09:58 Nephro-Zane - PO 1 tablet DAILY [facility] Administration CBC, BMP 06/08/18 05:30 06/08/18 05:30 Assessment/Plan echo 05/2018 nl LV size, mildly reduced function EF 45-50%, mild global hypokinesis of LV, nl RV, ppm lead in RV and RA, tr TR EKG: sinus, prolonged QTC, old septal infarct Shortness of breath - trop neg x 3 - BNP elevated however unclear significance in patient with ESRD with known HF, however does have edema, rales on exam - also with COPD hx, on chronic O2 - after hd pt feeling better, no sob acute on chronic systolic HF - mildly reduced EF on echo - appeared volume up as above on admit - volume management per renal-->pt feeling better after hd - not on DELANO/BB due to low BP Prolonged QTc - avoid QT prolonging agents - maintain K >4, Mg >2 s/p ICD (RotaryView) - outpatient follow up, Dr. Stover - recent device checks unremarkable per patient hypotension - continue midodrine ESRD on HD - renal consulted CAD, s/p CABG - cont statin - holding aspirin, elevated INR and anemia mesenteric ischemia - recent dx, s/p surgery during recent admission for hip fx, was started on eliquis - holding eliquis due to elevated INR and anemia anemia - manage per primary ascites: -GI, ID following
--- NOTE | 2018-06-08 11:51 | PN ---
Teaching Attending Note Name of Resident: Mindy Floyd ATTENDING PHYSICIAN STATEMENT I saw and evaluated the patient. I reviewed the resident's note and discussed the case with the resident. I agree with the resident's findings and plan as documented with exceptions below. SUBJECTIVE: Patient seen and examined. denies any new abdominal pain. Ongoing diarrhea, tolerating diet. no new chest pain, dyspnea noted. OBJECTIVE: Vital Signs Period Temp Pulse Resp BP Sys/Emery Pulse Ox Last 24 Hr 97.1 F-98.0 F 55-78 16-21 110-126/47-68 98-100 Intake & Output 06/05/18 06/06/18 06/07/18 06/08/18 23:59 23:59 23:59 23:59 Intake Total 400 130 540 10 Balance 400 130 540 10 Weight 200 lb 12.8 oz 202 lb 6.4 oz 197 lb 9.6 oz General: lying in bed in no acute distress Chest: few basilar rales, otherwise clear Abdomen:soft, unchanged distension, vertical midline scar with no active erythema/discharge, non tender throughout, no voluntary or involuntary guarding or rigidity, positive bowel sounds Extremities: no edema Home Medications Medication Instructions Recorded Allopurinol [Zyloprim -] 1 tab PO DAILY 03/17/18 Amiodarone HCl 1 tab PO DAILY 03/17/18 Aspirin [ASA -] 81 mg PO DAILY 03/17/18 Carvedilol 1 tab PO BID 03/17/18 Levothyroxine [Synthroid -] 1 tab PO DAILY 03/17/18 Pravastatin Sodium [Pravachol -] 1 tab PO DAILY 03/17/18 Zolpidem Tartrate [Ambien Cr] 1 tab PO HS 03/17/18 Acetaminophen [Tylenol] 650 mg PO DAILY PRN 05/31/18 Apixaban [Eliquis -] 2.5 mg PO BID 05/31/18 Calcium Carbonate [Calcium] 500 mg PO AC 05/31/18 Citalopram Hydrobromide 20 mg PO DAILY 05/31/18 [Citalopram HBr] Cyanocobalamin [Vitamin B12 -] 100 mcg PO DAILY 05/31/18 Folic Acid - 1 mg PO DAILY 05/31/18 Melatonin/Pyridoxine HCl (B6) 1 each PO HS 05/31/18 [Melatonin 10 mg Tablet] Midodrine HCl [Proamatine -] 5 mg PO TID 05/31/18 Vit B Comp No.3/Folic/C/Biotin 1 each PO DAILY 05/31/18 [Krystina-Zane Rx Tablet] Active Medications Acetaminophen (Tylenol -) 650 mg PO Q4H PRN PRN Reason: HEADACHE Last Admin: 06/08/18 10:28 Dose: 650 mg Albumin Human (Albumin Human 25%) 12.5 gm IVPB Q30M [facility] Stop: 06/08/18 12:46 Last Admin: 06/08/18 11:45 Dose: 12.5 gm Amiodarone HCl (Cordarone -) 200 mg PO DAILY [facility] Last Admin: 06/07/18 09:58 Dose: 200 mg Buspirone HCl (Buspar -) 10 mg PO TID [facility] Last Admin: 06/08/18 05:26 Dose: Not Given Calcium Carbonate (Os-Merlin 500mg -) 500 mg PO TIDAC [facility] Last Admin: 06/07/18 18:39 Dose: 500 mg Citalopram Hydrobromide (Celexa -) 20 mg PO DAILY [facility] Last Admin: 06/07/18 09:59 Dose: 20 mg Collagenase (Santyl -) 1 applic TP DAILY [facility]; Protocol Last Admin: 06/07/18 09:58 Dose: 1 applic Cyanocobalamin (Vitamin B12 -) 100 mcg PO DAILY [facility] Last Admin: 06/07/18 09:58 Dose: 100 mcg Folic Acid (Folic Acid -) 1 mg PO DAILY [facility] Last Admin: 06/07/18 09:57 Dose: 1 mg Levothyroxine Sodium (Synthroid -) 100 mcg PO DAILY@0600 [facility] Last Admin: 06/08/18 05:26 Dose: Not Given Midodrine (Proamatine -) 5 mg PO TID-MID [facility] Multivit/Ca Carb/B Cmplx/FA/Prenat (Nephro-Zane -) 1 tablet PO DAILY [facility] Last Admin: 06/07/18 09:58 Dose: 1 tablet Laboratory Results - last 24 hr 06/07/18 06/07/18 06/08/18 05:30 15:10 01:31 WBC RBC Hgb Hct MCV MCH MCHC RDW Plt Count MPV Absolute Neuts (auto) Neutrophils % Lymphocytes % Monocytes % Eosinophils % Basophils % Nucleated RBC % Sodium 139 Potassium 3.4 L Chloride 101 Carbon Dioxide 30 Anion Gap 8 BUN 20 H Creatinine 3.6 H Creat Clearance w eGFR 16.95 Random Glucose 150 H Calcium 7.7 L Phosphorus 2.7 Magnesium 1.9 Total Bilirubin AST ALT Alkaline Phosphatase Total Protein Albumin Free T4 1.15 Fluid Source Ascitic fluid Fluid WBC 75108 Fluid RBC 0 Fluid Neutrophils 86 Fluid Lymphocytes 12 Pleural Macrophages 2 Stool Occult Blood Negative 06/08/18 06/08/18 05:30 05:30 WBC 6.5 RBC 3.13 L Hgb 9.5 L Hct 28.6 L MCV 91.3 MCH 30.2 MCHC 33.1 RDW 19.7 H Plt Count 147 MPV 8.3 Absolute Neuts (auto) 4.8 Neutrophils % 74.8 Lymphocytes % 13.8 D Monocytes % 9.3 Eosinophils % 1.1 Basophils % 1.0 Nucleated RBC % 0 Sodium 141 Potassium 3.5 Chloride 102 Carbon Dioxide 28 Anion Gap 12 BUN 28 H Creatinine 4.4 H Creat Clearance w eGFR 13.44 Random Glucose 120 H Calcium 7.7 L Phosphorus 3.1 Magnesium 1.7 L Total Bilirubin 0.6 AST 15 ALT 15 Alkaline Phosphatase 108 Total Protein 4.6 L Albumin 1.9 L Free T4 Fluid Source Fluid WBC Fluid RBC Fluid Neutrophils Fluid Lymphocytes Pleural Macrophages Stool Occult Blood Microbiology 06/07/18 15:10 Paracentesis AFB Smear Concentration - Preliminary 06/07/18 15:10 Paracentesis Mycobacterial Culture - Preliminary 06/01/18 13:40 Blood - Peripheral Venous Blood Culture - Final NO GROWTH AFTER 5 DAYS INCUBATION 06/01/18 13:50 Blood - Peripheral Venous Blood Culture - Final NO GROWTH AFTER 5 DAYS INCUBATION ASSESSMENT AND PLAN: 67 yom with PMhx of CAD s/p CABG 2005, chronic systolic HF s/p ICD ([email or web address]), COPD on chronic O2 2-3L, ESRD on HD, hypotension on midodrine, HTN , HLD, admitted to [facility] for hip fracture s/p ORIF, course complicated by mesentric ischemia, s/p right hemicolectomy, readmitted on 05/23/2018 with shortness of breath/nausea with HD, found with ascitis s/p paracentesis, cultures with Kleb Oxytoca, s/p ceftriaxone, d/dena on ?Cipro/flagyl x 7 days readmitted with chest pain/dyspnea/anxiety during HD, found with ascitis, elevated INR . -Dyspnea, acute on chronic systolic heart failure exacerbation, EF 45-50% -Chest pain, ?anxiety mediated, resolved -Elevated INR, suspect from passive hepatic congestion/Nutritional/Eliquis -Ascitis, r/o secondary bacterial peritonitis -Mesentric ischemia s/p right hemicolectomy -Diarrhea, ?from colectomy, r/o C difficile -?Filling defect SVC/Left brachiocephalic on CTA chest report from 05/23/2018, ? SVC thrombus -CAD s/p CABG -ICD s/p reported h/o shocks on Amiodarone -COPD on 2-3 l home oxygen -Hypotension on Midodrine (off coreg/ACEi) -Hypothyroidism -Hypoalbuminemia -Anemia, suspect multifactorial s/p 1 unit PRBC 06/06 Plan: Abdominal exam benign currently. Surgery/GI/ID input noted. Ascitic fluid with >00622 WBc, zosyn x1. discuss with Id to resume abx for now. Follow up cultures. GI input appreciated. Attempting to get records from [facility], advised patient if daughter can bring in CD of entire medical records. Follow up stool studies. FOBT neg. s/p 1unit PRBC, appropriate response. HD per renal, ongoing fluid removal. Albumin/epoeitin per renal Cardiology input noted. Continue amiodarone. OFf coreg/ACEi for now given hypotension. Continue midodrine. Discussed with Dr. Doe about nursing home AC, will check Duplex UE and neck for now. Plan for additional chest imaging and AC accordingly. Eliquis on hold given elevated INR on admission, now pending further plans for intervention. Heparin drip in 24 hours till additional imaging available, if ok with GI and no active bleed concerns. TSH noted, Free T4 noted, Endocrine input appreciated, repeat TSH in 2 days, levothyroxine redosing accordingly. DVTPPX start heparin DVTPPX for now. dispo pending resolution of medical issues. PT eval. Add incentive spirometry Plan discussed with patient, hematology, GI, all questions answered
[2018-06-08] MEDS ORDERED: PT OWN MED DRAWER 7, Y5N ONE ×2 (14:54→18:42)
[2018-06-08] MEDS: CYANOCOBALAMIN (VITAMIN B-12) 100 MCG TABLET PO SCH (15:00)
[2018-06-08] MEDS: AMIODARONE HCL 200 MG TABLET (FP) PO SCH (15:00)
[2018-06-08] MEDS: FOLIC ACID 1 MG TABLET (FP) PO SCH (15:00)
[2018-06-08] MEDS: VITAMIN B COMP W-C 1 EA TABLET PO SCH (15:00)
[2018-06-08] MEDS: CITALOPRAM HYDROBROMIDE 20 MG TABLET (FP) PO SCH (15:00)
[2018-06-08] MEDS: MIDODRINE HCL 2.5 MG TABLET PO SCH ×3 (15:01→17:57)
[2018-06-08] MEDS: COLLAGENASE CLOSTRIDIUM HIST. 30 GRAMS TUBE TP SCH (15:01)
[2018-06-08] MEDS: HEPARIN NA (PORCINE) 5,000 UNITS/ML 1ML VIAL SQ SCH ×2 (15:02→21:31)
--- NOTE | 2018-06-08 15:21 | PN ---
Progress Note, Physician History of Present Illness: Pt seen and examined at bedside. He is awake and alert. He is tolerating HD. - Current Medication List Current Medications: Active Medications Acetaminophen (Tylenol -) 650 mg PO Q4H PRN PRN Reason: HEADACHE Last Admin: 06/08/18 14:57 Dose: 650 mg Amiodarone HCl (Cordarone -) 200 mg PO DAILY [facility] Last Admin: 06/08/18 15:00 Dose: 200 mg Buspirone HCl (Buspar -) 10 mg PO TID [facility] Last Admin: 06/08/18 14:59 Dose: 10 mg Calcium Carbonate (Os-Merlin 500mg -) 500 mg PO TIDAC [facility] Last Admin: 06/08/18 14:59 Dose: 500 mg Citalopram Hydrobromide (Celexa -) 20 mg PO DAILY [facility] Last Admin: 06/08/18 15:00 Dose: 20 mg Collagenase (Santyl -) 1 applic TP DAILY [facility]; Protocol Last Admin: 06/08/18 15:01 Dose: 1 applic Cyanocobalamin (Vitamin B12 -) 100 mcg PO DAILY [facility] Last Admin: 06/08/18 15:00 Dose: 100 mcg Folic Acid (Folic Acid -) 1 mg PO DAILY [facility] Last Admin: 06/08/18 15:00 Dose: 1 mg Heparin Sodium (Porcine) (Heparin -) 5,000 unit SQ TID [facility] Last Admin: 06/08/18 15:02 Dose: 5,000 unit Levothyroxine Sodium (Synthroid -) 100 mcg PO DAILY@0600 [facility] Last Admin: 06/08/18 05:26 Dose: Not Given Midodrine (Proamatine -) 5 mg PO TID-MID [facility] Last Admin: 06/08/18 15:01 Dose: 5 mg Multivit/Ca Carb/B Cmplx/FA/Prenat (Nephro-Zane -) 1 tablet PO DAILY [facility] Last Admin: 06/08/18 15:00 Dose: 1 tablet - Objective Vital Signs: Vital Signs Temperature 97.3 F L 06/08/18 14:10 Pulse Rate 76 06/08/18 14:10 Respiratory Rate 18 06/08/18 14:10 Blood Pressure 147/67 06/08/18 14:10 O2 Sat by Pulse Oximetry (%) 100 06/08/18 10:55 Constitutional: Yes: Calm Eyes: Yes: Conjunctiva Clear HENT: Yes: Atraumatic Neck: Yes: Supple Cardiovascular: Yes: S1, S2 Respiratory: Yes: CTA Bilaterally Gastrointestinal: Yes: Soft Musculoskeletal: Yes: Muscle Weakness Edema: No Neurological: Yes: Oriented Labs: CBC, BMP 06/08/18 05:30 06/08/18 05:30 INR, PTT INR 1.39 (0.83-1.09) H 06/07/18 05:30 Assessment/Plan Current Medications Generic Name Dose Route Start Last Admin Trade Name Freq PRN Reason Stop Dose Admin Acetaminophen 650 mg 06/02/18 08:58 06/08/18 14:57 Tylenol - PO 650 mg Q4H PRN Administration HEADACHE Amiodarone HCl 200 mg 06/01/18 11:21 06/08/18 15:00 Cordarone - PO 200 mg DAILY [facility]ULIAN Administration Buspirone HCl 10 mg 06/03/18 14:00 06/08/18 14:59 Buspar - PO 10 mg TID JULIAN Administration Calcium Carbonate 500 mg 06/01/18 16:30 06/08/18 14:59 Os-Merlin 500mg - PO 500 mg TIDAC JULIAN Administration Citalopram Hydrobromide 20 mg 06/01/18 13:15 06/08/18 15:00 Celexa - PO 20 mg DAILY [facility]IAN Administration Collagenase 1 applic 06/01/18 17:15 06/08/18 15:01 Santyl - TP 1 applic DAILY [facility] Administration Protocol Cyanocobalamin 100 mcg 06/01/18 13:15 06/08/18 15:00 Vitamin B12 - PO 100 mcg DAILY [facility] Administration Folic Acid 1 mg 06/01/18 13:15 06/08/18 15:00 Folic Acid - PO 1 mg DAILY [facility] Administration Heparin Sodium (Porcine) 5,000 unit 06/08/18 14:00 06/08/18 15:02 Heparin - SQ 5,000 unit TID [facility]ULIAN Administration Levothyroxine Sodium 100 mcg 06/05/18 06:00 06/08/18 05:26 Synthroid - PO Not Given DAILY@0600 [facility] Midodrine 5 mg 06/08/18 10:00 06/08/18 15:01 Proamatine - PO 5 mg TID-MID [facility]IAN Administration Multivit/Ca Carb/B Cmplx/FA/Prenat 1 tablet 06/01/18 13:30 06/08/18 15:00 Nephro-Zane - PO 1 tablet DAILY [facility] Administration Impression 1. ESRD 2. CAD 3. CABG 4. COPD 5. CHF 6. SBP 7. DVT 8. hx mesinteric ischemia 9. hypothyroidism 10. gout 11. hld 12. pleural effusion 13. anemia Plan - HD today - monitor hg - cont epogen - will need fistula once medically stable - will follow - renal diet Dr Jones
[2018-06-08] MEDS ORDERED: DEXTROSE 5%-WATER - 50 ML IVPB ONE (17:14)
[2018-06-08] MEDS ORDERED: PIPERACILLIN/TAZOBACTAM 2.25 GM VIAL IVPB ONE (17:14)
--- NOTE | 2018-06-08 17:15 | PATH ---
Cytology Non-Gynecological Report Patient Name: LARY RUBIN Med. Rec. #: [id number] /Age/Gender: 1950 (Age: 67) / M Account: [id number] Location: 4 W TELEMETRY U Taken: 06/07/2018 Received: 06/07/2018 Reported: 06/08/2018 Physicians: Arnold Jacobs M.D. Specimen(s) Received PERITONEAL FLUID Clinical History Ascites Final Diagnosis ABDOMINAL FLUID, PARACENTESIS: SATISFACTORY FOR EVALUATION. NO MALIGNANT CELLS IDENTIFIED. ACUTE INFLAMMATORY EXUDATE COMPRISED OF NUMEROUS NEUTROPHILS AND SCATTERED LYMPHOCYTES IN A BACKGROUND CELLULAR DEBRIS. Electronically Signed Bianca Dimas M.D. Gross Description Approximately 50 cc of yellow fluid received fixed in 50% alcohol. One cytofunnel prepared and Pap stained. One cellblock prepared.
--- NOTE | 2018-06-08 17:27 | PN ---
Progress Note, Physician History of Present Illness: Pt seen and examined. Events noted. s/p paracentesis, results so far noted. Pt denies abd pain. Had 3 unformed stools today, reports improvement. - Current Medication List Current Medications: Active Medications Acetaminophen (Tylenol -) 650 mg PO Q4H PRN PRN Reason: HEADACHE Last Admin: 06/08/18 14:57 Dose: 650 mg Amiodarone HCl (Cordarone -) 200 mg PO DAILY [facility] Last Admin: 06/08/18 15:00 Dose: 200 mg Buspirone HCl (Buspar -) 10 mg PO TID [facility] Last Admin: 06/08/18 14:59 Dose: 10 mg Calcium Carbonate (Os-Merlin 500mg -) 500 mg PO TIDAC [facility] Last Admin: 06/08/18 14:59 Dose: 500 mg Citalopram Hydrobromide (Celexa -) 20 mg PO DAILY [facility] Last Admin: 06/08/18 15:00 Dose: 20 mg Collagenase (Santyl -) 1 applic TP DAILY [facility]; Protocol Last Admin: 06/08/18 15:01 Dose: 1 applic Cyanocobalamin (Vitamin B12 -) 100 mcg PO DAILY [facility] Last Admin: 06/08/18 15:00 Dose: 100 mcg Folic Acid (Folic Acid -) 1 mg PO DAILY [facility] Last Admin: 06/08/18 15:00 Dose: 1 mg Heparin Sodium (Porcine) (Heparin -) 5,000 unit SQ TID [facility] Last Admin: 06/08/18 15:02 Dose: 5,000 unit Piperacillin Sod/Tazobactam (Sod 2.25 gm/ Dextrose) 50 mls @ 100 mls/hr IVPB Q8H-IV [facility]; Protocol Levothyroxine Sodium (Synthroid -) 100 mcg PO DAILY@0600 [facility] Last Admin: 06/08/18 05:26 Dose: Not Given Midodrine (Proamatine -) 5 mg PO TID-MID [facility] Last Admin: 06/08/18 15:01 Dose: 5 mg Multivit/Ca Carb/B Cmplx/FA/Prenat (Nephro-Zane -) 1 tablet PO DAILY [facility] Last Admin: 06/08/18 15:00 Dose: 1 tablet - Objective Vital Signs: Vital Signs Temperature 97.3 F L 06/08/18 14:10 Pulse Rate 76 06/08/18 14:10 Respiratory Rate 18 06/08/18 14:10 Blood Pressure 147/67 06/08/18 14:10 O2 Sat by Pulse Oximetry (%) 100 06/08/18 10:55 Constitutional: Yes: No Distress Cardiovascular: Yes: Regular Rate and Rhythm Respiratory: Yes: Regular Gastrointestinal: Yes: Normal Bowel Sounds, Soft Neurological: Yes: Alert Labs: CBC, BMP 06/08/18 05:30 06/08/18 05:30 INR, PTT INR 1.39 (0.83-1.09) H 06/07/18 05:30 Laboratory Last Values WBC 6.5 K/mm3 (4.0-10.0) 06/08/18 05:30 RBC 3.13 M/mm3 (4.00-5.60) L 06/08/18 05:30 Hgb 9.5 GM/dL (11.7-16.9) L 06/08/18 05:30 Hct 28.6 % (35.4-49) L 06/08/18 05:30 MCV 91.3 fl (80-96) 06/08/18 05:30 MCH 30.2 pg (25.7-33.7) 06/08/18 05:30 MCHC 33.1 g/dl (32.0-35.9) 06/08/18 05:30 RDW 19.7 % (11.9-15.9) H 06/08/18 05:30 Plt Count 147 K/MM3 (134-434) 06/08/18 05:30 MPV 8.3 fl (7.5-11.1) 06/08/18 05:30 Absolute Neuts (auto) 4.8 K/mm3 (1.5-8.0) 06/08/18 05:30 Neutrophils % 74.8 % (42.8-82.8) 06/08/18 05:30 Lymphocytes % 13.8 % (8-40) D 06/08/18 05:30 Monocytes % 9.3 % (3.8-10.2) 06/08/18 05:30 Eosinophils % 1.1 % (0-4.5) 06/08/18 05:30 Basophils % 1.0 % (0-2.0) 06/08/18 05:30 Nucleated RBC % 0 % (0-0) 06/08/18 05:30 Hypochromia 0 06/06/18 08:40 Platelet Estimate Adequate 06/06/18 08:40 Polychromasia 1+ 06/06/18 08:40 Poikilocytosis 0 06/06/18 08:40 Anisocytosis 2+ 06/06/18 08:40 Microcytosis 0 06/06/18 08:40 Macrocytosis 1+ 06/06/18 08:40 Ovalocytes 1+ 06/06/18 08:40 PT with INR 16.40 SEC (9.7-13.0) H 06/07/18 05:30 INR 1.39 (0.83-1.09) H 06/07/18 05:30 PTT (Actin FS) 31.1 SECONDS (25.2-36.5) 06/07/18 05:30 Sodium 141 mmol/L (136-145) 06/08/18 05:30 Potassium 3.5 mmol/L (3.5-5.1) 06/08/18 05:30 Chloride 102 mmol/L (98-107) 06/08/18 05:30 Carbon Dioxide 28 mmol/L (21-32) 06/08/18 05:30 Anion Gap 12 MMOL/L (8-16) 06/08/18 05:30 BUN 28 mg/dL (7-18) H 06/08/18 05:30 Creatinine 4.4 mg/dL (0.55-1.3) H 06/08/18 05:30 Creat Clearance w eGFR 13.44 (>60) 06/08/18 05:30 POC Glucometer 215 UNITS (80-120) 06/02/18 12:23 Random Glucose 120 mg/dL (74-106) H 06/08/18 05:30 Calcium 7.7 mg/dL (8.5-10.1) L 06/08/18 05:30 Phosphorus 3.1 mg/dL (2.5-4.9) 06/08/18 05:30 Magnesium 1.7 mg/dL (1.8-2.4) L 06/08/18 05:30 Total Bilirubin 0.6 mg/dL (0.2-1) 06/08/18 05:30 AST 15 U/L (15-37) 06/08/18 05:30 ALT 15 U/L (13-61) 06/08/18 05:30 Alkaline Phosphatase 108 U/L (45-117) 06/08/18 05:30 Troponin I 0.03 ng/ml (0.00-0.05) 06/01/18 05:10 B-Natriuretic Peptide 94622.4 pg/ml (5-125) H 06/01/18 07:55 Total Protein 4.6 g/dl (6.4-8.2) L 06/08/18 05:30 Albumin 1.9 g/dl (3.4-5.0) L 06/08/18 05:30 Prealbumin 4.7 mg/dl (20-40) L 06/01/18 05:30 TSH 19.40 uIU/ml (0.358-3.74) H 06/02/18 05:30 Free T4 1.15 ng/dl (0.76-1.16) 06/07/18 05:30 Fluid Source Ascitic fluid 06/07/18 15:10 Fluid WBC 06089 /mm3 06/07/18 15:10 Fluid RBC 0 /mm3 06/07/18 15:10 Fluid Neutrophils 86 % 06/07/18 15:10 Fluid Lymphocytes 12 % 06/07/18 15:10 Pleural Macrophages 2 % 06/07/18 15:10 Stool Occult Blood Negative (NEGATIVE) 06/08/18 01:31 Hepatitis A IgM Ab Negative (Negative) 06/01/18 07:55 Hep Bs Antigen Negative (Negative) 06/01/18 07:55 Hep B Core IgM Ab Negative (Negative) 06/01/18 07:55 Hepatitis C Antibody 0.1 s/co ratio (0.0-0.9) 06/01/18 07:55 HIV Genotype Non reactive (Non Reactive) 06/01/18 07:55 Influenza A (Rapid) Negative 06/01/18 12:30 Influenza B (Rapid) Negative 06/01/18 12:30 Blood Type O POSITIVE 06/03/18 16:30 Antibody Screen Negative 06/03/18 16:30 Crossmatch See Detail 06/03/18 16:30 Assessment/Plan Ascites fluid s/p paracentesis Diarrhea b/l heel ulcers ESRD CAD mesenteric ischemia s/p hemicolectomy COPD -- ascites fluid >68.9K, neut 86% -- restart antibiotics, await cultures -- CDT/Ag negative
--- NOTE | 2018-06-08 17:33 | PN ---
Physical Exam: SUBJECTIVE: Patient seen and examined by me at bedside. Patient continues to have diarrhea. C.diff came back negative Medical disk CD brought in by daughter and given to Dr. Crum for further review Patient otherwise offers no complaints Denies any fever, chill, nausea, vomiting, chest pain, urinary or bladder symptoms, headaches, dizziness. OBJECTIVE: Vital Signs Period Temp Pulse Resp BP Sys/Emery Pulse Ox Last 24 Hr 96.1 F-98.2 F 55-79 16-21 106-147/47-68 98-100 GENERAL: The patient is awake, alert, frail looking and fully oriented, in no acute distress. EYES: Sclera anicteric, conjunctiva clear. No ptosis. ENT: Moist mucous membranes. LUNGS: bibasilar fine rales with no wheezing or no accessory muscle use. HEART: Regular rate and rhythm, S1, S2 with (+) JOSIE ABDOMEN: Soft, nontender, nondistended, normoactive bowel sounds (+) vertical incisional scar C/D/I EXTREMITIES: No edema. (+) Stage II ulcer of left heel and second toe SKIN: Warm, dry, normal turgor, no rashes or lesions noted Laboratory Results 06/08/18 05:30 06/08/18 05:30 06/08/18 05:30 Phosphorus 3.1 Magnesium 1.7 L Total Bilirubin 0.6 AST 15 ALT 15 Alkaline Phosphatase 108 Total Protein 4.6 L Albumin 1.9 L Active Medications Generic Name Dose Route Start Last Admin Trade Name Freq PRN Reason Stop Dose Admin Acetaminophen 650 mg 06/02/18 08:58 06/08/18 14:57 Tylenol - PO 650 mg Q4H PRN Administration HEADACHE Amiodarone HCl 200 mg 06/01/18 11:21 06/08/18 15:00 Cordarone - PO 200 mg DAILY [facility] Administration Buspirone HCl 10 mg 06/03/18 14:00 06/08/18 14:59 Buspar - PO 10 mg TID [facility] Administration Calcium Carbonate 500 mg 06/01/18 16:30 06/08/18 14:59 Os-Merlin 500mg - PO 500 mg TIDAC [facility] Administration Citalopram Hydrobromide 20 mg 06/01/18 13:15 06/08/18 15:00 Celexa - PO 20 mg DAILY [facility] Administration Collagenase 1 applic 06/01/18 17:15 06/08/18 15:01 Santyl - TP 1 applic DAILY [facility] Administration Protocol Cyanocobalamin 100 mcg 06/01/18 13:15 06/08/18 15:00 Vitamin B12 - PO 100 mcg DAILY [facility] Administration Folic Acid 1 mg 06/01/18 13:15 06/08/18 15:00 Folic Acid - PO 1 mg DAILY [facility] Administration Heparin Sodium (Porcine) 5,000 unit 06/08/18 14:00 06/08/18 15:02 Heparin - SQ 5,000 unit TID [facility] Administration Piperacillin Sod/Tazobactam 50 mls @ 100 mls/hr 06/08/18 18:00 Sod 2.25 gm/ Dextrose IVPB Q8H-IV [facility] Protocol Levothyroxine Sodium 100 mcg 06/05/18 06:00 06/08/18 05:26 Synthroid - PO Not Given DAILY@0600 [facility] Midodrine 5 mg 06/08/18 10:00 06/08/18 15:01 Proamatine - PO 5 mg TID-MID [facility] Administration Multivit/Ca Carb/B Cmplx/FA/Prenat 1 tablet 06/01/18 13:30 06/08/18 15:00 Nephro-Zane - PO 1 tablet DAILY [facility] Administration ASSESSMENT/PLAN: Patient is a 67 year old male with a PMHx of CAD s/p CABG, Defibrillator ( [employer]), COPD (on 2-3L Home O2), ESRD (On HD // via Right Tunnel Cath), CHF presents from [facility]) with Chest pain. #Loculated Ascites -Discontinued antibiotics today, as per ID. Will monitor off abx -ID following -Paracentesis done yesterday with >35343 WBC predominately neutrophils. Spoke to ID and one order of Zosyn ordered -Rest of the fluid analysis pending #Supratherapeutic INR- Improved -Today 1.39 -Patient no longer requires Eliquis, as per oncology. Will continue to monitor off of it -Continue to monitor #Mesentric ischemia s/p right hemicolectomy -Patient had procedures done at [facility] but refuses to go back there. Would like to have different opinions at this hospital and further management. -Disks of his medical record at [facility] brought in by daughter today and gave it to Dr. Crum, who will further evaluate. #Diarrhea -Possibly infectious vs mechanical. Rule out C.diff. Possibly from recent colectomy -Cdiff and stool cultures/stain sent -Continue to monitor #Filling defect SVC/Left brachiocephalic -Shown on CTA chest report from 05/23/2018 -UE duplex of neck pending #Hypotension -Continue Midodrine -Patient with low BP but has improved -Continue to monitor # Chest pain -Likely due to anxiety. -Troponin x 3 negative. EKG: Sinus rhythm no ST or T wave changes, unlikely ACS -Denies any chest pain, especially after celexa was given #ESRD -HD to be done today -Epogen for anemia -Will need follow up with Dr Woodard for fistula #CAD -Holding Coreg due to hypotension -Continue Amiodarone as patient has history of shocks from ICD Acute on Chronic systolic CHF -Improved -No SOB today -Continue HD to remove fluid -On no ARB/DELANO or BB due to low BP #Hypothyroidism -TSH elevated -Free T4 and T3 pending -Endocrinology consult placed #Anxiety -Continue Buspar and Celexa #F/E/N -On no fluids -Hypokalemia. -Sodium controlled diet #Prophylaxis -SCD's for DVT. -No GI required #Disposition -Full code -Pending Paracentesis. Mindy Floyd [id number] Visit type - Emergency Visit Emergency Visit: Yes ED Registration Date: 05/31/18 Care time: The patient presented to the Emergency Department on the above date and was hospitalized for further evaluation of their emergent condition. - New Patient This patient is new to me today: No - Critical Care Critical Care patient: No
[2018-06-08] MEDS: PIPERACILLIN/TAZOB 2.25 GM 2.25 GM in DEXTROSE 5%-WATER - 50 ML IVPB SCH (17:55)
--- NOTE | 2018-06-08 18:31 | PN ---
Progress Note, Physician History of Present Illness: Patient seen and examined at bedside. No complaint after HD. No acute event reported by RN. - Current Medication List Current Medications: Active Medications Acetaminophen (Tylenol -) 650 mg PO Q4H PRN PRN Reason: HEADACHE Last Admin: 06/08/18 14:57 Dose: 650 mg Amiodarone HCl (Cordarone -) 200 mg PO DAILY [facility] Last Admin: 06/08/18 15:00 Dose: 200 mg Buspirone HCl (Buspar -) 10 mg PO TID [facility] Last Admin: 06/08/18 14:59 Dose: 10 mg Calcium Carbonate (Os-Merlin 500mg -) 500 mg PO TIDAC [facility] Last Admin: 06/08/18 17:57 Dose: 500 mg Citalopram Hydrobromide (Celexa -) 20 mg PO DAILY [facility] Last Admin: 06/08/18 15:00 Dose: 20 mg Collagenase (Santyl -) 1 applic TP DAILY [facility]; Protocol Last Admin: 06/08/18 15:01 Dose: 1 applic Cyanocobalamin (Vitamin B12 -) 100 mcg PO DAILY [facility] Last Admin: 06/08/18 15:00 Dose: 100 mcg Folic Acid (Folic Acid -) 1 mg PO DAILY [facility] Last Admin: 06/08/18 15:00 Dose: 1 mg Heparin Sodium (Porcine) (Heparin -) 5,000 unit SQ TID [facility] Last Admin: 06/08/18 15:02 Dose: 5,000 unit Piperacillin Sod/Tazobactam (Sod 2.25 gm/ Dextrose) 50 mls @ 100 mls/hr IVPB Q8H-IV [facility]; Protocol Last Admin: 06/08/18 17:55 Dose: 100 mls/hr Levothyroxine Sodium (Synthroid -) 100 mcg PO DAILY@0600 [facility] Last Admin: 06/08/18 05:26 Dose: Not Given Midodrine (Proamatine -) 5 mg PO TID-MID [facility] Last Admin: 06/08/18 17:57 Dose: 5 mg Multivit/Ca Carb/B Cmplx/FA/Prenat (Nephro-Zane -) 1 tablet PO DAILY [facility] Last Admin: 06/08/18 15:00 Dose: 1 tablet - Objective Vital Signs: Vital Signs Temperature 97.3 F L 06/08/18 14:10 Pulse Rate 76 06/08/18 14:10 Respiratory Rate 18 06/08/18 14:10 Blood Pressure 147/67 06/08/18 14:10 O2 Sat by Pulse Oximetry (%) 100 06/08/18 10:55 Constitutional: Yes: No Distress, Calm Cardiovascular: Yes: Regular Rate and Rhythm, Murmur, S1, S2 Respiratory: Yes: Rhonchi Gastrointestinal: Yes: Normal Bowel Sounds, Soft Edema: No Labs: CBC, BMP 06/08/18 05:30 06/08/18 05:30 INR, PTT INR 1.39 (0.83-1.09) H 06/07/18 05:30 Impression/Plan Impression/Plan: 67 yo m h.o cad s/p cabg, sCHF w. ICD, COPD on home O2, ESRD on HD, mesenteric ischemia s/p hemicolectomy admitted to the hospital for sob, chest pain now being evaluated for mesenteric ischemia. Impression Mesenteria ischemia ascite w/ SBP supratherapeutic INR Plan record from [facility] showed thrombus in L brachiocephalic vein and SVC awaiting doppler of UE and neck vascular consult patient will need to be on AC pending vascular input Joe Argueta PGY3 Visit type - Emergency Visit Emergency Visit: No - New Patient This patient is new to me today: Yes Date on this admission: 06/08/18 - Critical Care Critical Care patient: No - Discharge Referral Referred to [facility] Med P.C.: No
--- NOTE | 2018-06-08 19:22 | PN ---
Progress Note (short form) - Note Progress Note: VA[facility] Surgery Pt seen and examined. Left heel eschar from pressure. Start santyl and offload heel with heel pads. Once pt is cleared from medical and ID standpoint, can place avf in right arm. If pt still here next week can do before DC Armando Woodard DO
--- NOTE | 2018-06-08 22:30 | PN ---
Teaching Attending Note Name of Resident: Joe Argueta ATTENDING PHYSICIAN STATEMENT I saw and evaluated the patient. I reviewed the resident's note and discussed the case with the resident. I agree with the resident's findings and plan as documented. ASSESSMENT AND PLAN: 67 y/o patient with multiple comorbidities including hypothyroid, COPD, CAD, CHF , ESRD on HD, recent fall/fx/admission to [facility] for ORIF , post op. complicated by mesenteric ischemia--s/p rt. hemicoloectomy. also readmitted there for ascites, new onset. Noted to have ? filling defects in SVC around the catheter. ascites--?peritonitis anemia--multifactorial CKD/chf ? gi losses tristan k iron studies transfuse prbcs as necessary svc filling defects around hd catheter check duplex ? ct chest with contrast--to coordinate with dialysis a/c onhold mesenteric ischemia--? h/o--s/p extended rt. hemicolectomhy ? related to low flow state? ? no obvious thrombus ? thombophilia w/u utility
[2018-06-08] MEDS ORDERED: HEPARIN NA (PORCINE) 5,000 UNITS/ML 1ML VIAL IVPUSH PRN ×2 (23:20)
[2018-06-09] MEDS: HEPARIN - 25,000 UNIT in SODIUM CHLORIDE 495 ML IV SCH ×3 (00:05→23:34)
[2018-06-09] MEDS ORDERED: PIPERACILLIN/TAZOBACTAM 2.25 GM VIAL IVPB ONE ×3 (01:03→17:08)
[2018-06-09] MEDS ORDERED: DEXTROSE 5%-WATER - 50 ML IVPB ONE ×3 (01:04→17:08)
[2018-06-09] MEDS: PIPERACILLIN/TAZOB 2.25 GM 2.25 GM in DEXTROSE 5%-WATER - 50 ML IVPB SCH ×3 (01:30→17:11)
[2018-06-09] MEDS: CALCIUM (OYSTER SHELL) 500 MG TABLET (FP) PO SCH ×3 (06:46→17:10)
[2018-06-09] MEDS: busPIRone HCL 10 MG TABLET (FP) PO SCH ×3 (06:46→21:05)
[2018-06-09] MEDS: LEVOTHYROXINE NA 100 MCG TABLET (FP) PO SCH (06:46)
--- NOTE | 2018-06-09 07:49 | HOSP ---
Subjective - Review of Symptoms Subjective: Was notified by the nurse that the patient's US results showed a new DVT in the patient's right IJ. Patient's vital signs stable and patient has no new complaints at this time. Ordered PTT stat. Started Heparin gtt. Will sign out to day team to follow up. Physical Examination Vital Signs: Vital Signs Temperature 98.1 F 06/09/18 05:36 Pulse Rate 81 06/09/18 05:36 Respiratory Rate 20 06/09/18 05:36 Blood Pressure 126/52 L 06/09/18 05:36 O2 Sat by Pulse Oximetry (%) 96 06/08/18 21:00 Visit type - Emergency Visit Emergency Visit: Yes ED Registration Date: 05/31/18 Care time: The patient presented to the Emergency Department on the above date and was hospitalized for further evaluation of their emergent condition. - New Patient This patient is new to me today: Yes Date on this admission: 06/09/18 - Critical Care Critical Care patient: No
[2018-06-09 08:00] LABS: BASO % 1.3 % (0-2.0); EOS % 1.1 % (0-4.5); HEMATOCRIT 28.5 % (35.4-49); HEMOGLOBIN 9.5 GM/dL (11.7-16.9); LYMPH % 12.2 % (8-40); MCH 30.6 pg (25.7-33.7); MCHC 33.3 g/dl (32.0-35.9); MEAN CELL VOLUME 91.8 fl (80-96); MEAN PLT VOLUME 8.1 fl (7.5-11.1); MONO % 9.7 % (3.8-10.2); NEUT % 75.7 % (42.8-82.8); PLATELET COUNT 146 K/MM3 (134-434); RDW 19.7 % (11.9-15.9); WHITE BLOOD COUNT 5.2 K/mm3 (4.0-10.0)
[2018-06-09 08:18] LABS: INR 1.31 (0.83-1.09); PROTHROMBIN TIME (PATIENT) 15.5 SEC (9.7-13.0)
[2018-06-09 08:20] LABS: ACTIVATED PTT 46.9 SECONDS (25.2-36.5)
[2018-06-09 08:25] LABS: ALBUMIN 2.4 g/dl (3.4-5.0); ALK PHOS 106 U/L (45-117); ANION GAP 9 MMOL/L (8-16); BILIRUBIN,TOTAL 0.8 mg/dL (0.2-1); BLOOD UREA NITROGEN 17 mg/dL (7-18); CHLORIDE 102 mmol/L (98-107); CO2 30 mmol/L (21-32); CREATININE 3.3 mg/dL (0.55-1.3); GLUCOSE,RANDOM 121 mg/dL (74-106); POTASSIUM 3.6 mmol/L (3.5-5.1); SGOT/AST 12 U/L (15-37); SGPT/ALT 13 U/L (13-61); SODIUM 142 mmol/L (136-145); TOT PROT 4.8 g/dl (6.4-8.2)
[2018-06-09] MEDS ORDERED: PT OWN MED DRAWER 7, Y5N ONE (09:00)
--- NOTE | 2018-06-09 10:16 | PN ---
Teaching Attending Note Name of Resident: Mindy Floyd ATTENDING PHYSICIAN STATEMENT I saw and evaluated the patient. I reviewed the resident's note and discussed the case with the resident. I agree with the resident's findings and plan as documented with exceptions below SUBJECTIVE: Patient seen and examined. No nausea, vomiting, abdominal pain. Ongoing watery non bloody diarrhea. No fevers, chills or new concerns. Tolerating diet well. OBJECTIVE: Vital Signs Period Temp Pulse Resp BP Sys/Emery Pulse Ox Last 24 Hr 96.1 F-98.2 F 60-81 18-20 106-147/52-67 96-100 Intake & Output 06/06/18 06/07/18 06/08/18 06/09/18 23:59 23:59 23:59 23:59 Intake Total 130 540 360 290 Balance 130 540 360 290 Weight 202 lb 6.4 oz 197 lb 9.6 oz General: lying in bed in no acute distress Chest bibasilar rales Abdomen:Soft, unchanged distension, midline surgical scar, no voluntary or involuntary guarding or rigidity, positive bowel sounds Extremities: no edema Home Medications Medication Instructions Recorded Allopurinol [Zyloprim -] 1 tab PO DAILY 03/17/18 Amiodarone HCl 1 tab PO DAILY 03/17/18 Aspirin [ASA -] 81 mg PO DAILY 03/17/18 Carvedilol 1 tab PO BID 03/17/18 Levothyroxine [Synthroid -] 1 tab PO DAILY 03/17/18 Pravastatin Sodium [Pravachol -] 1 tab PO DAILY 03/17/18 Zolpidem Tartrate [Ambien Cr] 1 tab PO HS 03/17/18 Acetaminophen [Tylenol] 650 mg PO DAILY PRN 05/31/18 Apixaban [Eliquis -] 2.5 mg PO BID 05/31/18 Calcium Carbonate [Calcium] 500 mg PO AC 05/31/18 Citalopram Hydrobromide 20 mg PO DAILY 05/31/18 [Citalopram HBr] Cyanocobalamin [Vitamin B12 -] 100 mcg PO DAILY 05/31/18 Folic Acid - 1 mg PO DAILY 05/31/18 Melatonin/Pyridoxine HCl (B6) 1 each PO HS 05/31/18 [Melatonin 10 mg Tablet] Midodrine HCl [Proamatine -] 5 mg PO TID 05/31/18 Vit B Comp No.3/Folic/C/Biotin 1 each PO DAILY 05/31/18 [Krystina-Zane Rx Tablet] Active Medications Acetaminophen (Tylenol -) 650 mg PO Q4H PRN PRN Reason: HEADACHE Last Admin: 06/08/18 21:19 Dose: 650 mg Amiodarone HCl (Cordarone -) 200 mg PO DAILY [facility] Last Admin: 06/08/18 15:00 Dose: 200 mg Buspirone HCl (Buspar -) 10 mg PO TID [facility] Last Admin: 06/09/18 06:46 Dose: 10 mg Calcium Carbonate (Os-Merlin 500mg -) 500 mg PO TIDAC [facility] Last Admin: 06/09/18 06:46 Dose: 500 mg Citalopram Hydrobromide (Celexa -) 20 mg PO DAILY [facility] Last Admin: 06/08/18 15:00 Dose: 20 mg Collagenase (Santyl -) 1 applic TP DAILY [facility]; Protocol Last Admin: 06/08/18 15:01 Dose: 1 applic Cyanocobalamin (Vitamin B12 -) 100 mcg PO DAILY [facility] Last Admin: 06/08/18 15:00 Dose: 100 mcg Folic Acid (Folic Acid -) 1 mg PO DAILY [facility] Last Admin: 06/08/18 15:00 Dose: 1 mg Heparin Sodium (Porcine) (Heparin -) 1,000 unit IVPUSH PRN PRN PRN Reason: Heparin Heparin Sodium (Porcine) (Heparin -) 5,000 unit IVPUSH PRN PRN PRN Reason: Heparin Piperacillin Sod/Tazobactam (Sod 2.25 gm/ Dextrose) 50 mls @ 100 mls/hr IVPB Q8H-IV [facility]; Protocol Last Admin: 06/09/18 01:30 Dose: 100 mls/hr Heparin Sodium (Porcine) 25, (000 unit/ Sodium Chloride) 500 mls @ 20 mls/hr IV TITR [facility]; Protocol Last Admin: 06/09/18 00:05 Dose: 1,000 unit/hr, 20 mls/hr Levothyroxine Sodium (Synthroid -) 100 mcg PO DAILY@0600 [facility] Last Admin: 06/09/18 06:46 Dose: 100 mcg Midodrine (Proamatine -) 5 mg PO TID-MID [facility] Last Admin: 06/08/18 17:57 Dose: 5 mg Multivit/Ca Carb/B Cmplx/FA/Prenat (Nephro-Zane -) 1 tablet PO DAILY [facility] Last Admin: 06/08/18 15:00 Dose: 1 tablet Laboratory Results - last 24 hr 06/07/18 06/08/18 06/09/18 05:30 23:20 06:20 WBC RBC Hgb Hct MCV MCH MCHC RDW Plt Count MPV Absolute Neuts (auto) Neutrophils % Lymphocytes % Monocytes % Eosinophils % Basophils % Nucleated RBC % PT with INR INR PTT (Actin FS) 32.9 Sodium 142 Potassium 3.6 Chloride 102 Carbon Dioxide 30 Anion Gap 9 BUN 17 Creatinine 3.3 H Creat Clearance w eGFR 18.74 Random Glucose 121 H Calcium 8.0 L Phosphorus 2.0 L Magnesium 2.0 Total Bilirubin 0.8 AST 12 L ALT 13 Alkaline Phosphatase 106 Total Protein 4.8 L Albumin 2.4 L TSH 26.70 H D Total T3 58.00 L 06/09/18 06/09/18 06:20 06:20 WBC 5.2 RBC 3.10 L Hgb 9.5 L Hct 28.5 L MCV 91.8 MCH 30.6 MCHC 33.3 RDW 19.7 H Plt Count 146 MPV 8.1 Absolute Neuts (auto) 3.9 Neutrophils % 75.7 Lymphocytes % 12.2 Monocytes % 9.7 Eosinophils % 1.1 Basophils % 1.3 Nucleated RBC % 0 PT with INR 15.50 H INR 1.31 H PTT (Actin FS) 46.9 H Sodium Potassium Chloride Carbon Dioxide Anion Gap BUN Creatinine Creat Clearance w eGFR Random Glucose Calcium Phosphorus Magnesium Total Bilirubin AST ALT Alkaline Phosphatase Total Protein Albumin TSH Total T3 Microbiology 06/07/18 15:10 Paracentesis Gram Stain - Final 06/07/18 15:10 Paracentesis Body Fluid Culture - Preliminary NO AEROBIC GROWTH, 24 HRS 06/08/18 01:31 Stool Gram Stain - Final 06/08/18 01:31 Stool Clostridium difficile Antigen (FLORINA) - Final 06/08/18 01:31 Stool Clostridium difficile Toxin Assay - Final 06/07/18 15:10 Paracentesis RODRIGUEZ Preparation - Preliminary 06/07/18 15:10 Paracentesis Fungal Culture - Preliminary 06/07/18 15:10 Paracentesis AFB Smear Concentration - Preliminary 06/07/18 15:10 Paracentesis Mycobacterial Culture - Preliminary 06/01/18 13:40 Blood - Peripheral Venous Blood Culture - Final NO GROWTH AFTER 5 DAYS INCUBATION 06/01/18 13:50 Blood - Peripheral Venous Blood Culture - Final NO GROWTH AFTER 5 DAYS INCUBATION ASSESSMENT AND PLAN: 67 yom with PMhx of CAD s/p CABG 2005, chronic systolic HF s/p ICD ([employer]), COPD on chronic O2 2-3L, ESRD on HD, hypotension on midodrine, HTN , HLD, admitted to [facility] for hip fracture s/p ORIF, course complicated by mesentric ischemia, s/p right hemicolectomy/jejunal/ileal resection, readmitted on 05/23/2018 with shortness of breath/nausea with HD, found with ascitis s/p paracentesis wiht 700 seropurulent fluid, reported cultures with Kleb Oxytoca, s /p ceftriaxone, d/dena on ?Cipro/flagyl x 7 days readmitted with chest pain/ dyspnea/anxiety during HD, found with ascitis, elevated INR . 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 SVC thrombus -CAD s/p CABG -ICD s/p reported h/o shocks on Amiodarone -COPD on 2-3 L home oxygen -Hypotension on Midodrine (off coreg/ACEi) -Hypothyroidism -Hypoalbuminemia -Anemia, suspect multifactorial s/p 1 unit PRBC 06/06 Plan: Abdominal exam benign currently. Surgery/GI/ID input noted. Ascitic fluid with >[id number] WBc, zosyn x1. Cultures neg so far, Continue Zosyn per ID. Follow up with surgery for further plan, retrieve prior records information from patient/daughter. GI input appreciated. Stool studies neg so far. FOBT neg. s/p 1unit PRBC, appropriate response. Neck US with Right IJ thrombus. Heparin drip.transition to eliquis pending surgery/GI input for possible intervention. Hematology input appreciated. Monitor h/h closely. HD per renal, ongoing fluid removal. Albumin/epoeitin per renal Cardiology input noted. Continue amiodarone (prior h/o ICD shocks x 2). OFf coreg/ACEi for now given hypotension. Continue midodrine. TSH noted, Free T4 noted, Endocrine input appreciated, repeat TSH in 2 days, levothyroxine redosing accordingly. DVTPPX heparin drip as above PT eval. Incentive spirometry Plan for D/c to SNF once medical issues improve if no furhter intervention planned. Plan discussed with patient and CM.
[2018-06-09] MEDS: FOLIC ACID 1 MG TABLET (FP) PO SCH (10:41)
[2018-06-09] MEDS: VITAMIN B COMP W-C 1 EA TABLET PO SCH (10:41)
[2018-06-09] MEDS: AMIODARONE HCL 200 MG TABLET (FP) PO SCH (10:41)
[2018-06-09] MEDS: CITALOPRAM HYDROBROMIDE 20 MG TABLET (FP) PO SCH (10:41)
[2018-06-09] MEDS: CYANOCOBALAMIN (VITAMIN B-12) 100 MCG TABLET PO SCH (10:41)
[2018-06-09] MEDS: MIDODRINE HCL 2.5 MG TABLET PO SCH ×3 (10:42→17:13)
[2018-06-09] MEDS: COLLAGENASE CLOSTRIDIUM HIST. 30 GRAMS TUBE TP SCH (10:43)
--- NOTE | 2018-06-09 10:58 | PN ---
Progress Note (short form) - Note Progress Note: s: no cp sob palps dizzy o: Vital Signs Period Temp Pulse Resp BP Sys/Emery Pulse Ox Last 24 Hr 97.3 F-98.2 F 60-81 18-20 106-147/52-67 96 Constitutional: Yes: Well Nourished, No Distress, Calm Eyes: Yes: Conjunctiva Clear HENT: Yes: Atraumatic, Normocephalic Neck: Yes: Supple, Trachea Midline Respiratory: Yes: cta bl nl eff Gastrointestinal: Yes: Normal Bowel Sounds, Soft Cardiovascular: Yes: Regular Rate and Rhythm JVD: No Carotid Bruit: No PMI: Non-Displaced Heart Sounds: Yes: S1, S2 Musculoskeletal: No: Back Pain Extremities: No: Cold Edema: trace Peripheral Pulses: 2+ Left Doralis Pedis, 2+ Right Dorsalis Pedis Integumentary: No: Jaundice Neurological: Yes: Alert, Oriented Current Medications Generic Name Dose Route Start Last Admin Trade Name Freq PRN Reason Stop Dose Admin Acetaminophen 650 mg 06/02/18 08:58 06/08/18 21:19 Tylenol - PO 650 mg Q4H PRN Administration HEADACHE Amiodarone HCl 200 mg 06/01/18 11:21 06/09/18 10:41 Cordarone - PO 200 mg DAILY [facility]UL[facility] Administration Buspirone HCl 10 mg 06/03/18 14:00 06/09/18 06:46 Buspar - PO 10 mg TID [facility] Administration Calcium Carbonate 500 mg 06/01/18 16:30 06/09/18 10:47 Os-Merlin 500mg - PO 500 mg TIDAC [facility] Administration Citalopram Hydrobromide 20 mg 06/01/18 13:15 06/09/18 10:41 Celexa - PO 20 mg DAILY [facility] Administration Collagenase 1 applic 06/01/18 17:15 06/09/18 10:43 Santyl - TP 1 applic DAILY [facility] Administration Protocol Cyanocobalamin 100 mcg 06/01/18 13:15 06/09/18 10:41 Vitamin B12 - PO 100 mcg DAILY [facility] Administration Folic Acid 1 mg 06/01/18 13:15 06/09/18 10:41 Folic Acid - PO 1 mg DAILY [facility] Administration Heparin Sodium (Porcine) 1,000 unit 06/08/18 23:20 Heparin - IVPUSH PRN PRN Heparin Heparin Sodium (Porcine) 5,000 unit 06/08/18 23:20 Heparin - IVPUSH PRN PRN Heparin Piperacillin Sod/Tazobactam 50 mls @ 100 mls/hr 06/08/18 18:00 06/09/18 10:39 Sod 2.25 gm/ Dextrose IVPB 100 mls/hr Q8H-IV [facility] Administration Protocol Heparin Sodium (Porcine) 25, 500 mls @ 20 mls/hr 06/08/18 23:30 06/09/18 00: 05 000 unit/ Sodium Chloride IV 1,000 unit/hr TITR [facility]UL[facility] 20 mls/hr Administration Protocol 1,000 UNIT/HR Levothyroxine Sodium 100 mcg 06/05/18 06:00 06/09/18 06:46 Synthroid - PO 100 mcg DAILY@0600 [facility] Administration Midodrine 5 mg 06/08/18 10:00 06/09/18 10:42 Proamatine - PO 5 mg TID-MID [facility] Administration Multivit/Ca Carb/B Cmplx/FA/Prenat 1 tablet 06/01/18 13:30 06/09/18 10:41 Nephro-Zane - PO 1 tablet DAILY [facility] Administration CBC, BMP 06/09/18 06:20 06/09/18 06:20 Assessment/Plan echo 05/2018 nl LV size, mildly reduced function EF 45-50%, mild global hypokinesis of LV, nl RV, ppm lead in RV and RA, tr TR EKG: sinus, prolonged QTC, old septal infarct Shortness of breath - trop neg x 3 - also with COPD hx, on chronic O2 - after hd pt feeling better, no sob acute on chronic systolic HF - mildly reduced EF on echo - appeared volume up as above on admit - volume management per renal-->pt feeling better after hd - not on DELANO/BB due to low BP Prolonged QTc - avoid QT prolonging agents - maintain K >4, Mg >2 s/p ICD ([employer]) - outpatient follow up, Dr. Stover - recent device checks unremarkable per patient hypotension - continue midodrine ESRD on HD - renal consulted CAD, s/p CABG - cont statin - holding aspirin, elevated INR and anemia mesenteric ischemia - recent dx, s/p surgery during recent admission for hip fx, was started on eliquis - holding eliquis due to elevated INR and anemia anemia - manage per primary ascites: -GI, ID following Right IJ dvt: -plans per vascular, on hep gtt
--- NOTE | 2018-06-09 12:57 | PN ---
Progress Note, Physician History of Present Illness: Pt seen and examined at bedside. He is awake and alert. He denies chest pain. - Current Medication List Current Medications: Active Medications Acetaminophen (Tylenol -) 650 mg PO Q4H PRN PRN Reason: HEADACHE Last Admin: 06/08/18 21:19 Dose: 650 mg Amiodarone HCl (Cordarone -) 200 mg PO DAILY [facility] Last Admin: 06/09/18 10:41 Dose: 200 mg Buspirone HCl (Buspar -) 10 mg PO TID [facility] Last Admin: 06/09/18 06:46 Dose: 10 mg Calcium Carbonate (Os-Merlin 500mg -) 500 mg PO TIDAC [facility] Last Admin: 06/09/18 10:47 Dose: 500 mg Citalopram Hydrobromide (Celexa -) 20 mg PO DAILY [facility] Last Admin: 06/09/18 10:41 Dose: 20 mg Collagenase (Santyl -) 1 applic TP DAILY [facility]; Protocol Last Admin: 06/09/18 10:43 Dose: 1 applic Cyanocobalamin (Vitamin B12 -) 100 mcg PO DAILY [facility] Last Admin: 06/09/18 10:41 Dose: 100 mcg Folic Acid (Folic Acid -) 1 mg PO DAILY [facility] Last Admin: 06/09/18 10:41 Dose: 1 mg Heparin Sodium (Porcine) (Heparin -) 1,000 unit IVPUSH PRN PRN PRN Reason: Heparin Heparin Sodium (Porcine) (Heparin -) 5,000 unit IVPUSH PRN PRN PRN Reason: Heparin Piperacillin Sod/Tazobactam (Sod 2.25 gm/ Dextrose) 50 mls @ 100 mls/hr IVPB Q8H-IV [facility]; Protocol Last Admin: 06/09/18 10:39 Dose: 100 mls/hr Heparin Sodium (Porcine) 25, (000 unit/ Sodium Chloride) 500 mls @ 20 mls/hr IV TITR [facility]; Protocol Last Admin: 06/09/18 00:05 Dose: 1,000 unit/hr, 20 mls/hr Levothyroxine Sodium (Synthroid -) 100 mcg PO DAILY@0600 [facility] Last Admin: 06/09/18 06:46 Dose: 100 mcg Midodrine (Proamatine -) 5 mg PO TID-MID [facility] Last Admin: 06/09/18 10:42 Dose: 5 mg Multivit/Ca Carb/B Cmplx/FA/Prenat (Nephro-Zane -) 1 tablet PO DAILY [facility] Last Admin: 06/09/18 10:41 Dose: 1 tablet - Objective Vital Signs: Vital Signs Temperature 98.2 F 06/09/18 10:00 Pulse Rate 80 06/09/18 10:00 Respiratory Rate 20 06/09/18 10:00 Blood Pressure 120/52 L 06/09/18 10:00 O2 Sat by Pulse Oximetry (%) 96 06/09/18 09:00 Constitutional: Yes: Calm Eyes: Yes: Conjunctiva Clear HENT: Yes: Atraumatic Neck: Yes: Supple Cardiovascular: Yes: S1, S2 Respiratory: Yes: On Nasal O2 Gastrointestinal: Yes: Soft Genitourinary: Yes: Incontinence Musculoskeletal: Yes: Muscle Weakness Edema: No Neurological: Yes: Oriented Psychiatric: Yes: Oriented Labs: CBC, BMP 06/09/18 06:20 06/09/18 06:20 INR, PTT INR 1.31 (0.83-1.09) H 06/09/18 06:20 Problem List - Problems (1) ESRD (end stage renal disease) Code(s): N18.6 - END STAGE RENAL DISEASE Assessment/Plan Current Medications Generic Name Dose Route Start Last Admin Trade Name Freq PRN Reason Stop Dose Admin Acetaminophen 650 mg 06/02/18 08:58 06/08/18 21:19 Tylenol - PO 650 mg Q4H PRN Administration HEADACHE Amiodarone HCl 200 mg 06/01/18 11:21 06/09/18 10:41 Cordarone - PO 200 mg DAILY [facility] Administration Buspirone HCl 10 mg 06/03/18 14:00 06/09/18 06:46 Buspar - PO 10 mg TID [facility] Administration Calcium Carbonate 500 mg 06/01/18 16:30 06/09/18 10:47 Os-Merlin 500mg - PO 500 mg TIDAC [facility] Administration Citalopram Hydrobromide 20 mg 06/01/18 13:15 06/09/18 10:41 Celexa - PO 20 mg DAILY [facility] Administration Collagenase 1 applic 06/01/18 17:15 06/09/18 10:43 Santyl - TP 1 applic DAILY [facility] Administration Protocol Cyanocobalamin 100 mcg 06/01/18 13:15 06/09/18 10:41 Vitamin B12 - PO 100 mcg DAILY [facility] Administration Folic Acid 1 mg 06/01/18 13:15 06/09/18 10:41 Folic Acid - PO 1 mg DAILY [facility] Administration Heparin Sodium (Porcine) 1,000 unit 06/08/18 23:20 Heparin - IVPUSH PRN PRN Heparin Heparin Sodium (Porcine) 5,000 unit 06/08/18 23:20 Heparin - IVPUSH PRN PRN Heparin Piperacillin Sod/Tazobactam 50 mls @ 100 mls/hr 06/08/18 18:00 06/09/18 10:39 Sod 2.25 gm/ Dextrose IVPB 100 mls/hr Q8H-IV [facility] Administration Protocol Heparin Sodium (Porcine) 25, 500 mls @ 20 mls/hr 06/08/18 23:30 06/09/18 00: 05 000 unit/ Sodium Chloride IV 1,000 unit/hr TITR [facility] 20 mls/hr Administration Protocol 1,000 UNIT/HR Levothyroxine Sodium 100 mcg 06/05/18 06:00 06/09/18 06:46 Synthroid - PO 100 mcg DAILY@0600 [facility] Administration Midodrine 5 mg 06/08/18 10:00 06/09/18 10:42 Proamatine - PO 5 mg TID-MID [facility] Administration Multivit/Ca Carb/B Cmplx/FA/Prenat 1 tablet 06/01/18 13:30 06/09/18 10:41 Nephro-Zane - PO 1 tablet DAILY [facility] Administration Impression 1. ESRD 2. CAD 3. CABG 4. COPD 5. CHF 6. SBP 7. DVT 8. hx mesinteric ischemia 9. hypothyroidism 10. gout 11. hld 12. pleural effusion 13. anemia Plan - HD in am - vascular follow up for clot - monitor hg - cont epogen - will need fistula once medically stable - will follow - renal diet Dr Jones
[2018-06-09 13:16] LABS: BODY FLUID ALBUMIN 1.5 g/dL (.)
--- NOTE | 2018-06-09 14:17 | PN ---
Progress Note (short form) - Note Progress Note: No new complaints Still has diarrhoea Vital Signs Period Temp Pulse Resp BP Sys/Emery Pulse Ox Last 24 Hr 98.1 F-98.4 F 60-81 20-20 119-129/52-59 96-96 PE: AOx3 Neck: Supple, No JVD Lungs: CTA CVS: S1S2 Acd: Benign Ext: No edema Neuro: No focal deficit CMP Sodium 142 mmol/L (136-145) 06/09/18 06:20 Potassium 3.6 mmol/L (3.5-5.1) 06/09/18 06:20 Chloride 102 mmol/L (98-107) 06/09/18 06:20 Carbon Dioxide 30 mmol/L (21-32) 06/09/18 06:20 Anion Gap 9 MMOL/L (8-16) 06/09/18 06:20 BUN 17 mg/dL (7-18) 06/09/18 06:20 Creatinine 3.3 mg/dL (0.55-1.3) H 06/09/18 06:20 Creat Clearance w eGFR 18.74 (>60) 06/09/18 06:20 POC Glucometer 144 UNITS (80-120) 06/07/18 16:44 Random Glucose 121 mg/dL (74-106) H 06/09/18 06:20 Calcium 8.0 mg/dL (8.5-10.1) L 06/09/18 06:20 Phosphorus 2.0 mg/dL (2.5-4.9) L 06/09/18 06:20 Magnesium 2.0 mg/dL (1.8-2.4) 06/09/18 06:20 Total Bilirubin 0.8 mg/dL (0.2-1) 06/09/18 06:20 AST 12 U/L (15-37) L 06/09/18 06:20 ALT 13 U/L (13-61) 06/09/18 06:20 Alkaline Phosphatase 106 U/L (45-117) 06/09/18 06:20 Troponin I 0.03 ng/ml (0.00-0.05) 06/01/18 05:10 B-Natriuretic Peptide 83107.4 pg/ml (5-125) H 06/01/18 07:55 Total Protein 4.8 g/dl (6.4-8.2) L 06/09/18 06:20 Albumin 2.4 g/dl (3.4-5.0) L 06/09/18 06:20 Prealbumin 4.7 mg/dl (20-40) L 06/01/18 05:30 TSH 26.70 uIU/ml (0.358-3.74) H D 06/09/18 06:20 Free T4 1.15 ng/dl (0.76-1.16) 06/07/18 05:30 Total T3 58.00 ng/dl (71-180) L 06/07/18 05:30 Current Medications Generic Name Dose Route Start Last Admin Trade Name Freq PRN Reason Stop Dose Admin Acetaminophen 650 mg 06/02/18 08:58 06/08/18 21:19 Tylenol - PO 650 mg Q4H PRN Administration HEADACHE Albumin Human 12.5 gm 06/10/18 13:00 Albumin Human 25% IVPB Q30M [facility] Amiodarone HCl 200 mg 06/01/18 11:21 06/09/18 10:41 Cordarone - PO 200 mg DAILY [facility] Administration Buspirone HCl 10 mg 06/03/18 14:00 06/09/18 14:45 Buspar - PO 10 mg TID [facility] Administration Calcium Carbonate 500 mg 06/01/18 16:30 06/09/18 10:47 Os-Merlin 500mg - PO 500 mg TIDAC [facility] Administration Citalopram Hydrobromide 20 mg 06/01/18 13:15 06/09/18 10:41 Celexa - PO 20 mg DAILY [facility] Administration Collagenase 1 applic 06/01/18 17:15 06/09/18 10:43 Santyl - TP 1 applic DAILY [facility] Administration Protocol Cyanocobalamin 100 mcg 06/01/18 13:15 06/09/18 10:41 Vitamin B12 - PO 100 mcg DAILY [facility] Administration Epoetin Josemanuel 10,000 unit 06/10/18 12:57 Epogen - IVPUSH 06/10/18 12:58 ONCE ONE Folic Acid 1 mg 06/01/18 13:15 06/09/18 10:41 Folic Acid - PO 1 mg DAILY [facility] Administration Heparin Sodium (Porcine) 1,000 unit 06/08/18 23:20 Heparin - IVPUSH PRN PRN Heparin Heparin Sodium (Porcine) 5,000 unit 06/08/18 23:20 Heparin - IVPUSH PRN PRN Heparin Piperacillin Sod/Tazobactam 50 mls @ 100 mls/hr 06/08/18 18:00 06/09/18 10:39 Sod 2.25 gm/ Dextrose IVPB 100 mls/hr Q8H-IV [facility] Administration Protocol Heparin Sodium (Porcine) 25, 500 mls @ 20 mls/hr 06/08/18 23:30 06/09/18 00: 05 000 unit/ Sodium Chloride IV 1,000 unit/hr TITR [facility] 20 mls/hr Administration Protocol 1,000 UNIT/HR Sodium Chloride 250 mls @ 3,000 mls/hr 06/09/18 12:57 Normal Saline - IV 06/10/18 12:57 PRN PRN Hypotension during Dialysis Fluconazole 100 mls @ 100 mls/hr 06/09/18 16:00 Diflucan 200 Mg/D5w Premixed Ivpb - IVPB Q48H [facility] Levothyroxine Sodium 100 mcg 06/05/18 06:00 06/09/18 06:46 Synthroid - PO 100 mcg DAILY@0600 [facility] Administration Midodrine 5 mg 06/08/18 10:00 06/09/18 14:45 Proamatine - PO 5 mg TID-MID [facility] Administration Multivit/Ca Carb/B Cmplx/FA/Prenat 1 tablet 06/01/18 13:30 06/09/18 10:41 Nephro-Zane - PO 1 tablet DAILY [facility] Administration AP: Hypothyroidism: TSH 26.7 from 19.4 with FT4 1.15 in the hospital Will multiple GI issues pt had including Hemicolectomy, it is very likely that the elevated TSH is secondary to malabsorption of LT4 Pt has missed doses when he goes for HD Increase LT4 125 mcg ESRD CAD s/p CABG COPD CHF H/O mesinteric ischemia S/p Ex-Lap with resection of jejnum/ileum and extended right hemicolectomy HLD Anemia
--- NOTE | 2018-06-09 14:35 | PN ---
Progress Note, Physician History of Present Illness: patient says he has no complaints but belly looks slightly big n rt ij thrombus noted no new issues - Current Medication List Current Medications: Active Medications Acetaminophen (Tylenol -) 650 mg PO Q4H PRN PRN Reason: HEADACHE Last Admin: 06/08/18 21:19 Dose: 650 mg Albumin Human (Albumin Human 25%) 12.5 gm IVPB Q30M [facility] Amiodarone HCl (Cordarone -) 200 mg PO DAILY [facility] Last Admin: 06/09/18 10:41 Dose: 200 mg Buspirone HCl (Buspar -) 10 mg PO TID [facility] Last Admin: 06/09/18 06:46 Dose: 10 mg Calcium Carbonate (Os-Merlin 500mg -) 500 mg PO TIDAC [facility] Last Admin: 06/09/18 10:47 Dose: 500 mg Citalopram Hydrobromide (Celexa -) 20 mg PO DAILY [facility] Last Admin: 06/09/18 10:41 Dose: 20 mg Collagenase (Santyl -) 1 applic TP DAILY [facility]; Protocol Last Admin: 06/09/18 10:43 Dose: 1 applic Cyanocobalamin (Vitamin B12 -) 100 mcg PO DAILY [facility] Last Admin: 06/09/18 10:41 Dose: 100 mcg Epoetin Josemanuel (Epogen -) 10,000 unit IVPUSH ONCE ONE Stop: 06/10/18 12:58 Folic Acid (Folic Acid -) 1 mg PO DAILY [facility] Last Admin: 06/09/18 10:41 Dose: 1 mg Heparin Sodium (Porcine) (Heparin -) 1,000 unit IVPUSH PRN PRN PRN Reason: Heparin Heparin Sodium (Porcine) (Heparin -) 5,000 unit IVPUSH PRN PRN PRN Reason: Heparin Piperacillin Sod/Tazobactam (Sod 2.25 gm/ Dextrose) 50 mls @ 100 mls/hr IVPB Q8H-IV [facility]; Protocol Last Admin: 06/09/18 10:39 Dose: 100 mls/hr Heparin Sodium (Porcine) 25, (000 unit/ Sodium Chloride) 500 mls @ 20 mls/hr IV TITR [facility]; Protocol Last Admin: 06/09/18 00:05 Dose: 1,000 unit/hr, 20 mls/hr Sodium Chloride (Normal Saline -) 250 mls @ 3,000 mls/hr IV PRN PRN PRN Reason: Hypotension during Dialysis Stop: 06/10/18 12:57 Levothyroxine Sodium (Synthroid -) 100 mcg PO DAILY@0600 [facility] Last Admin: 06/09/18 06:46 Dose: 100 mcg Midodrine (Proamatine -) 5 mg PO TID-MID [facility] Last Admin: 06/09/18 10:42 Dose: 5 mg Multivit/Ca Carb/B Cmplx/FA/Prenat (Nephro-Zane -) 1 tablet PO DAILY [facility] Last Admin: 06/09/18 10:41 Dose: 1 tablet - Objective Vital Signs: Vital Signs Temperature 98.2 F 06/09/18 10:00 Pulse Rate 80 06/09/18 10:00 Respiratory Rate 20 06/09/18 10:00 Blood Pressure 120/52 L 06/09/18 10:00 O2 Sat by Pulse Oximetry (%) 96 06/09/18 09:00 Constitutional: Yes: No Distress, Calm Cardiovascular: Yes: Regular Rate and Rhythm Respiratory: Yes: Regular, CTA Bilaterally Gastrointestinal: Yes: Normal Bowel Sounds, Soft Musculoskeletal: Yes: WNL Extremities: Yes: Other Wound/Incision: Yes: Dressing Dry and Intact Neurological: Yes: Alert, Oriented Psychiatric: Yes: Alert, Oriented Labs: CBC, BMP 06/09/18 06:20 06/09/18 06:20 INR, PTT INR 1.31 (0.83-1.09) H 06/09/18 06:20 Assessment/Plan ASSESSMENT AND PLAN: (1) Hypotension Code(s): I95.9 - HYPOTENSION, UNSPECIFIED (2) ESRD (end stage renal disease) Code(s): N18.6 - END STAGE RENAL DISEASE (3) Ascites Code(s): R18.8 - OTHER ASCITES (4) Supratherapeutic INR Code(s): R79.1 - ABNORMAL COAGULATION PROFILE (5) CAD (coronary artery disease) Code(s): I25.10 - ATHSCL HEART DISEASE OF [place] CORONARY ARTERY W/O ANG PCTRS (6) CHF (congestive heart failure) Code(s): I50.9 - HEART FAILURE, UNSPECIFIED Qualifiers: Heart failure chronicity: acute on chronic (7) Hypothyroid Code(s): E03.9 - HYPOTHYROIDISM, UNSPECIFIED (8) SBP (secondary bacterial peritonitis) Code(s): K65.2 - SPONTANEOUS BACTERIAL PERITONITIS (9) Anxiety -consult psychiatry 10 b/l heel ulcer as far as i think i am worried is there any leak from the gi tract a small leak as the collection poly microbial from the last time as far as i know had 2 0rganism and patient has loculated effusions plan will continue abx await for final cx rest as per the team consider further plan
--- NOTE | 2018-06-09 14:50 | PN ---
<Jose Manuel Boykin - Last Filed: 06/09/18 15:20> Progress Note, Physician - Current Medication List Current Medications: Active Medications Acetaminophen (Tylenol -) 650 mg PO Q4H PRN PRN Reason: HEADACHE Last Admin: 06/08/18 21:19 Dose: 650 mg Albumin Human (Albumin Human 25%) 12.5 gm IVPB Q30M [facility] Amiodarone HCl (Cordarone -) 200 mg PO DAILY [facility] Last Admin: 06/09/18 10:41 Dose: 200 mg Buspirone HCl (Buspar -) 10 mg PO TID [facility] Last Admin: 06/09/18 14:45 Dose: 10 mg Calcium Carbonate (Os-Merlin 500mg -) 500 mg PO TIDAC [facility] Last Admin: 06/09/18 10:47 Dose: 500 mg Citalopram Hydrobromide (Celexa -) 20 mg PO DAILY [facility] Last Admin: 06/09/18 10:41 Dose: 20 mg Collagenase (Santyl -) 1 applic TP DAILY [facility]; Protocol Last Admin: 06/09/18 10:43 Dose: 1 applic Cyanocobalamin (Vitamin B12 -) 100 mcg PO DAILY [facility] Last Admin: 06/09/18 10:41 Dose: 100 mcg Epoetin Josemanuel (Epogen -) 10,000 unit IVPUSH ONCE ONE Stop: 06/10/18 12:58 Folic Acid (Folic Acid -) 1 mg PO DAILY [facility] Last Admin: 06/09/18 10:41 Dose: 1 mg Heparin Sodium (Porcine) (Heparin -) 1,000 unit IVPUSH PRN PRN PRN Reason: Heparin Heparin Sodium (Porcine) (Heparin -) 5,000 unit IVPUSH PRN PRN PRN Reason: Heparin Piperacillin Sod/Tazobactam (Sod 2.25 gm/ Dextrose) 50 mls @ 100 mls/hr IVPB Q8H-IV [facility]; Protocol Last Admin: 06/09/18 10:39 Dose: 100 mls/hr Heparin Sodium (Porcine) 25, (000 unit/ Sodium Chloride) 500 mls @ 20 mls/hr IV TITR [facility]; Protocol Last Admin: 06/09/18 00:05 Dose: 1,000 unit/hr, 20 mls/hr Sodium Chloride (Normal Saline -) 250 mls @ 3,000 mls/hr IV PRN PRN PRN Reason: Hypotension during Dialysis Stop: 06/10/18 12:57 Levothyroxine Sodium (Synthroid -) 100 mcg PO DAILY@0600 [facility] Last Admin: 06/09/18 06:46 Dose: 100 mcg Midodrine (Proamatine -) 5 mg PO TID-MID [facility] Last Admin: 06/09/18 14:45 Dose: 5 mg Multivit/Ca Carb/B Cmplx/FA/Prenat (Nephro-Zane -) 1 tablet PO DAILY [facility] Last Admin: 06/09/18 10:41 Dose: 1 tablet - Objective Vital Signs: Vital Signs Temperature 98.4 F 06/09/18 14:05 Pulse Rate 80 06/09/18 14:05 Respiratory Rate 20 06/09/18 14:05 Blood Pressure 119/59 L 06/09/18 14:05 O2 Sat by Pulse Oximetry (%) 96 06/09/18 09:00 Labs: CBC, BMP 06/09/18 06:20 06/09/18 06:20 INR, PTT INR 1.31 (0.83-1.09) H 06/09/18 06:20 <Joe Argueta - Last Filed: 06/09/18 16:01> Progress Note, Physician History of Present Illness: Patient seen and examined at bedside. No complaint, denies fever, chills, sob, chest pain, abd pain. - Current Medication List Current Medications: Active Medications Acetaminophen (Tylenol -) 650 mg PO Q4H PRN PRN Reason: HEADACHE Last Admin: 06/08/18 21:19 Dose: 650 mg Albumin Human (Albumin Human 25%) 12.5 gm IVPB Q30M [facility] Amiodarone HCl (Cordarone -) 200 mg PO DAILY [facility] Last Admin: 06/09/18 10:41 Dose: 200 mg Buspirone HCl (Buspar -) 10 mg PO TID [facility] Last Admin: 06/09/18 14:45 Dose: 10 mg Calcium Carbonate (Os-Merlin 500mg -) 500 mg PO TIDAC [facility] Last Admin: 06/09/18 10:47 Dose: 500 mg Citalopram Hydrobromide (Celexa -) 20 mg PO DAILY [facility] Last Admin: 06/09/18 10:41 Dose: 20 mg Collagenase (Santyl -) 1 applic TP DAILY [facility]; Protocol Last Admin: 06/09/18 10:43 Dose: 1 applic Cyanocobalamin (Vitamin B12 -) 100 mcg PO DAILY [facility] Last Admin: 06/09/18 10:41 Dose: 100 mcg Epoetin Josemanuel (Epogen -) 10,000 unit IVPUSH ONCE ONE Stop: 06/10/18 12:58 Folic Acid (Folic Acid -) 1 mg PO DAILY [facility] Last Admin: 06/09/18 10:41 Dose: 1 mg Heparin Sodium (Porcine) (Heparin -) 1,000 unit IVPUSH PRN PRN PRN Reason: Heparin Heparin Sodium (Porcine) (Heparin -) 5,000 unit IVPUSH PRN PRN PRN Reason: Heparin Piperacillin Sod/Tazobactam (Sod 2.25 gm/ Dextrose) 50 mls @ 100 mls/hr IVPB Q8H-IV [facility]; Protocol Last Admin: 06/09/18 10:39 Dose: 100 mls/hr Heparin Sodium (Porcine) 25, (000 unit/ Sodium Chloride) 500 mls @ 20 mls/hr IV TITR [facility]; Protocol Last Admin: 06/09/18 00:05 Dose: 1,000 unit/hr, 20 mls/hr Sodium Chloride (Normal Saline -) 250 mls @ 3,000 mls/hr IV PRN PRN PRN Reason: Hypotension during Dialysis Stop: 06/10/18 12:57 Levothyroxine Sodium (Synthroid -) 100 mcg PO DAILY@0600 [facility] Last Admin: 06/09/18 06:46 Dose: 100 mcg Midodrine (Proamatine -) 5 mg PO TID-MID [facility] Last Admin: 06/09/18 14:45 Dose: 5 mg Multivit/Ca Carb/B Cmplx/FA/Prenat (Nephro-Zane -) 1 tablet PO DAILY [facility] Last Admin: 06/09/18 10:41 Dose: 1 tablet - Objective Vital Signs: Vital Signs Temperature 98.2 F 06/09/18 10:00 Pulse Rate 80 06/09/18 10:00 Respiratory Rate 20 06/09/18 10:00 Blood Pressure 120/52 L 06/09/18 10:00 O2 Sat by Pulse Oximetry (%) 96 06/09/18 09:00 Constitutional: Yes: No Distress, Calm HENT: Yes: Atraumatic, Normocephalic Cardiovascular: Yes: Regular Rate and Rhythm, S1, S2. No: Murmur Respiratory: Yes: CTA Bilaterally Gastrointestinal: Yes: Normal Bowel Sounds, Soft, Other (perm cath upper R chest ) Edema: No Wound/Incision: Yes: Dressing Dry and Intact Neurological: Yes: Alert, Oriented Labs: CBC, BMP 06/09/18 06:20 06/09/18 06:20 INR, PTT INR 1.31 (0.83-1.09) H 06/09/18 06:20 Impression/Plan Impression/Plan: 67 yo m h.o cad s/p cabg, sCHF w. ICD, COPD on home O2, ESRD on HD, mesenteric ischemia s/p hemicolectomy admitted to the hospital for sob, chest pain now being evaluated for mesenteric ischemia. Impression Mesenteria ischemia ascite w/ SBP supratherapeutic INR Plan doppler of UE and neck confirms IJ thrombus recommend CT chest to r/o other etiologies of thrombosis will obtain 2nd opinion from covering package checker from [facility] regarding role of AC Joe Argueta PGY3 Visit type - Emergency Visit Emergency Visit: No - New Patient This patient is new to me today: No - Critical Care Critical Care patient: No - Discharge Referral Referred to [facility] Med [facility] No
--- NOTE | 2018-06-09 15:20 | PN ---
Teaching Attending Note Name of Resident: Joe Argueta ATTENDING PHYSICIAN STATEMENT I saw and evaluated the patient. I reviewed the resident's note and discussed the case with the resident. I agree with the resident's findings and plan as documented. SUBJECTIVE: Patient seen and examined Complains of diarrhea. No chest pain Last Vital Signs Temp Pulse Resp BP Pulse Ox 98.4 F 80 20 119/59 L 96 06/09/18 14:05 06/09/18 14:05 06/09/18 14:05 06/09/18 14:05 06/09/18 09:00 HEENT: RADHA, EOM Intact Oropharynx: No thrush, No mucositis Cor: RSR, No murmurs, No gallops Lungs: Clear to P&A Abd: Soft, Normal bowel sounds, No organomegaly, surgical scar Ext:No significant edema Skin: No rashes, Integument intact Catheter right neck CBC, BMP 06/09/18 06:20 06/09/18 06:20 Current Medications Generic Name Dose Route Start Last Admin Trade Name Freq PRN Reason Stop Dose Admin Acetaminophen 650 mg 06/02/18 08:58 06/08/18 21:19 Tylenol - PO 650 mg Q4H PRN Administration HEADACHE Albumin Human 12.5 gm 06/10/18 13:00 Albumin Human 25% IVPB Q30M [facility] Amiodarone HCl 200 mg 06/01/18 11:21 06/09/18 10:41 Cordarone - PO 200 mg DAILY [facility] Administration Buspirone HCl 10 mg 06/03/18 14:00 06/09/18 14:45 Buspar - PO 10 mg TID [facility] Administration Calcium Carbonate 500 mg 06/01/18 16:30 06/09/18 10:47 Os-Merlin 500mg - PO 500 mg TIDAC [facility] Administration Citalopram Hydrobromide 20 mg 06/01/18 13:15 06/09/18 10:41 Celexa - PO 20 mg DAILY [facility] Administration Collagenase 1 applic 06/01/18 17:15 06/09/18 10:43 Santyl - TP 1 applic DAILY [facility] Administration Protocol Cyanocobalamin 100 mcg 06/01/18 13:15 06/09/18 10:41 Vitamin B12 - PO 100 mcg DAILY [facility] Administration Epoetin Josemanuel 10,000 unit 06/10/18 12:57 Epogen - IVPUSH 06/10/18 12:58 ONCE ONE Folic Acid 1 mg 06/01/18 13:15 06/09/18 10:41 Folic Acid - PO 1 mg DAILY [facility] Administration Heparin Sodium (Porcine) 1,000 unit 06/08/18 23:20 Heparin - IVPUSH PRN PRN Heparin Heparin Sodium (Porcine) 5,000 unit 06/08/18 23:20 Heparin - IVPUSH PRN PRN Heparin Piperacillin Sod/Tazobactam 50 mls @ 100 mls/hr 06/08/18 18:00 06/09/18 10:39 Sod 2.25 gm/ Dextrose IVPB 100 mls/hr Q8H-IV [facility] Administration Protocol Heparin Sodium (Porcine) 25, 500 mls @ 20 mls/hr 06/08/18 23:30 06/09/18 00: 05 000 unit/ Sodium Chloride IV 1,000 unit/hr TITR [facility] 20 mls/hr Administration Protocol 1,000 UNIT/HR Sodium Chloride 250 mls @ 3,000 mls/hr 06/09/18 12:57 Normal Saline - IV 06/10/18 12:57 PRN PRN Hypotension during Dialysis Levothyroxine Sodium 100 mcg 06/05/18 06:00 06/09/18 06:46 Synthroid - PO 100 mcg DAILY@0600 [facility] Administration Midodrine 5 mg 06/08/18 10:00 06/09/18 14:45 Proamatine - PO 5 mg TID-MID [facility] Administration Multivit/Ca Carb/B Cmplx/FA/Prenat 1 tablet 06/01/18 13:30 06/09/18 10:41 Nephro-Zane - PO 1 tablet DAILY [facility] Administration Impression: Multiple co- morbid medical problems Mesenteric ischemia Ascites SbP Right IJ thrombus Presumed etiology for Right IJ thrombusis is catheter . However would do CTA -- CT with contrast and follow with HD. Will need fistula and when catheter removed would continue with 3 months of a/ c. Eliquis would be preferred NOAC. ASSESSMENT AND PLAN:
--- NOTE | 2018-06-09 17:06 | PN ---
Progress Note (short form) - Note Progress Note: Peritoneal chemistry analysis noted: SAA.4 Total protein: 3.0 (elevated) LDH: markedly elevated Low SAAG high protein ascites with markedly elevated LDH does not support cardiac / portal hypertensive etiology. It is more consistent with an exudative process. Suspect secondary perotinitis Suspect related to ischemic bowel episode and subsequent surgery. Clnically he is asymptomatic and there is no growth from current fluid cultures Awaiting previous records re: prior cell count / official culture report ID following: will need to determine total length of treatment. Problem List - Problems (1) Ascites Code(s): R18.8 - OTHER ASCITES Qualifiers: Ascites type: other type Qualified Code(s): R18.8 - Other ascites
[2018-06-09] MEDS: FLUCONAZOLE 200 MG/D5W 100 ML IVPB SCH (17:09)
--- NOTE | 2018-06-09 17:30 | PN ---
Progress Note, Physician History of Present Illness: Reviewed available records from [facility]; orthopedic op note is present, gen surg op notes are not, despite second request sent specifically for those. He is seen and examined in bed, awake, with daughter at bedside. He is frustrated and upset about possibly needing to return to [facility]. Denies abdominal pain. His other daughter obtained multiple CDs from [facility] for us to review; radiology has uploaded a number of studies, all of which appear to be from his April visit and nearly all preop. Pt had paracentesis by IR, which had numerous WBC in turbid sample, but is growing nothing 2 days later. Fluid analysis shows elevated LDH but mostly exudative picture. I spoke with Marycarmen, salesperson surgical appliances at [facility], and requested a call from one of his surgeons, as well as the operative notes and his fluid analysis from paracentesis there to be faxed to us. She will try to have both done. I also left a message on a number thought to be Dr. Schilling's (one of the surgeons) to please call me back. - Current Medication List Current Medications: Active Medications Acetaminophen (Tylenol -) 650 mg PO Q4H PRN PRN Reason: HEADACHE Last Admin: 06/08/18 21:19 Dose: 650 mg Albumin Human (Albumin Human 25%) 12.5 gm IVPB Q30M [facility] Amiodarone HCl (Cordarone -) 200 mg PO DAILY [facility] Last Admin: 06/09/18 10:41 Dose: 200 mg Buspirone HCl (Buspar -) 10 mg PO TID [facility] Last Admin: 06/09/18 14:45 Dose: 10 mg Calcium Carbonate (Os-Merlin 500mg -) 500 mg PO TIDAC [facility] Last Admin: 06/09/18 17:10 Dose: 500 mg Citalopram Hydrobromide (Celexa -) 20 mg PO DAILY [facility] Last Admin: 06/09/18 10:41 Dose: 20 mg Collagenase (Santyl -) 1 applic TP DAILY [facility]; Protocol Last Admin: 06/09/18 10:43 Dose: 1 applic Cyanocobalamin (Vitamin B12 -) 100 mcg PO DAILY [facility] Last Admin: 06/09/18 10:41 Dose: 100 mcg Epoetin Josemanuel (Epogen -) 10,000 unit IVPUSH ONCE ONE Stop: 06/10/18 12:58 Folic Acid (Folic Acid -) 1 mg PO DAILY [facility] Last Admin: 06/09/18 10:41 Dose: 1 mg Heparin Sodium (Porcine) (Heparin -) 1,000 unit IVPUSH PRN PRN PRN Reason: Heparin Heparin Sodium (Porcine) (Heparin -) 5,000 unit IVPUSH PRN PRN PRN Reason: Heparin Piperacillin Sod/Tazobactam (Sod 2.25 gm/ Dextrose) 50 mls @ 100 mls/hr IVPB Q8H-IV [facility]; Protocol Last Admin: 06/09/18 17:11 Dose: 100 mls/hr Heparin Sodium (Porcine) 25, (000 unit/ Sodium Chloride) 500 mls @ 20 mls/hr IV TITR [facility]; Protocol Last Admin: 06/09/18 09:06 Dose: 1,100 unit/hr, 22 mls/hr Sodium Chloride (Normal Saline -) 250 mls @ 3,000 mls/hr IV PRN PRN PRN Reason: Hypotension during Dialysis Stop: 06/10/18 12:57 Fluconazole (Diflucan 200 Mg/D5w Premixed Ivpb -) 100 mls @ 100 mls/hr IVPB Q48H [facility] Last Admin: 06/09/18 17:09 Dose: 100 mls/hr Levothyroxine Sodium (Synthroid -) 125 mcg PO DAILY@0600 [facility] Midodrine (Proamatine -) 5 mg PO TID-MID [facility] Last Admin: 06/09/18 17:13 Dose: 5 mg Multivit/Ca Carb/B Cmplx/FA/Prenat (Nephro-Zane -) 1 tablet PO DAILY [facility] Last Admin: 06/09/18 10:41 Dose: 1 tablet - Objective Vital Signs: Vital Signs Temperature 98.4 F 06/09/18 14:05 Pulse Rate 80 06/09/18 14:05 Respiratory Rate 20 06/09/18 14:05 Blood Pressure 119/59 L 06/09/18 14:05 O2 Sat by Pulse Oximetry (%) 96 06/09/18 09:00 Constitutional: Yes: Well Nourished, No Distress, Anxious Eyes: Yes: Conjunctiva Clear, EOM Intact HENT: Yes: Atraumatic, Normocephalic Gastrointestinal: Yes: Soft, Ascites, Distention. No: Tenderness Extremities: Yes: Other (heels dressed). No: Cool, Cyanosis Wound/Incision: Yes: Clean/Dry (midline abdominal scar/healing incision), Well Approximated, Open to air Neurological: Yes: Alert, Oriented Labs: CBC, BMP 06/09/18 06:20 06/09/18 06:20 INR, PTT INR 1.31 (0.83-1.09) H 06/09/18 06:20 PTT 50 CMP Sodium 142 mmol/L (136-145) 06/09/18 06:20 Potassium 3.6 mmol/L (3.5-5.1) 06/09/18 06:20 Chloride 102 mmol/L (98-107) 06/09/18 06:20 Carbon Dioxide 30 mmol/L (21-32) 06/09/18 06:20 Anion Gap 9 MMOL/L (8-16) 06/09/18 06:20 BUN 17 mg/dL (7-18) 06/09/18 06:20 Creatinine 3.3 mg/dL (0.55-1.3) H 06/09/18 06:20 Creat Clearance w eGFR 18.74 (>60) 06/09/18 06:20 POC Glucometer 144 UNITS (80-120) 06/07/18 16:44 Random Glucose 121 mg/dL (74-106) H 06/09/18 06:20 Calcium 8.0 mg/dL (8.5-10.1) L 06/09/18 06:20 Phosphorus 2.0 mg/dL (2.5-4.9) L 06/09/18 06:20 Magnesium 2.0 mg/dL (1.8-2.4) 06/09/18 06:20 Total Bilirubin 0.8 mg/dL (0.2-1) 06/09/18 06:20 AST 12 U/L (15-37) L 06/09/18 06:20 ALT 13 U/L (13-61) 06/09/18 06:20 Alkaline Phosphatase 106 U/L (45-117) 06/09/18 06:20 Troponin I 0.03 ng/ml (0.00-0.05) 06/01/18 05:10 B-Natriuretic Peptide 36998.4 pg/ml (5-125) H 06/01/18 07:55 Total Protein 4.8 g/dl (6.4-8.2) L 06/09/18 06:20 Albumin 2.4 g/dl (3.4-5.0) L 06/09/18 06:20 Prealbumin 4.7 mg/dl (20-40) L 06/01/18 05:30 TSH 26.70 uIU/ml (0.358-3.74) H D 06/09/18 06:20 Free T4 1.15 ng/dl (0.76-1.16) 06/07/18 05:30 Total T3 58.00 ng/dl (71-180) L 06/07/18 05:30 Microbiology 06/08/18 09:20 Salmonella/Shigella Culture - Preliminary Stool NO ENTERIC PATHOGENS, 24 HOURS, ON PRIMARY PLATES Yersinia Culture - Preliminary NO ENTERIC PATHOGENS, 24 HOURS, ON PRIMARY PLATES Vibrio Culture - Final NO GROWTH OF VIBRIO SPECIES OBTAINED Escherichia coli 0157 Culture - Final NO GROWTH OF E COLI 0157 OBTAINED 06/07/18 15:10 Gram Stain - Final Paracentesis Body Fluid Culture - Preliminary NO AEROBIC GROWTH, 24 HRS 06/08/18 01:31 Gram Stain - Final Stool 06/08/18 01:31 Clostridium difficile Antigen (FLORINA) - Final Stool Clostridium difficile Toxin Assay - Final 06/07/18 15:10 RODRIGUEZ Preparation - Preliminary Paracentesis Fungal Culture - Preliminary Problem List - Problems (1) Ascites Assessment/Plan: s/p paracentesis 05/24 at [facility] was to finish abx outpatient but came here on 05/31 pt on abx per ID no abdominal pain or tenderness, no contrast extravasation on CT, no wbc, no fevers tends to argue against active infectious process no growth on paracentesis fluid, lots of wbc in fluid - may represent resolving peritonitis? reviewed records from [facility], do not have surgical operative notes from abdominal operations also trying to get fluid analysis from their paracentesis for comparison in absence of leukocytosis, fever, abdominal pain or tenderness, clinical signs of peritonitis, would not pursue surgical intervention at this time trying to reach [facility] surgeon(s) to discuss per daughter, while there in early May, "when he was worse than he is now," they did not want to operate in any case, if surgery were indicated, he would need to return to [facility], or a tertiary center willing to accept him discussed with Dr. Floyd of primary team and Dr. Jurado Code(s): R18.8 - OTHER ASCITES Qualifiers: Qualified Code(s): R18.8 - Other ascites (2) S/P partial colectomy Code(s): Z90.49 - ACQUIRED ABSENCE OF OTHER SPECIFIED PARTS OF DIGESTIVE TRACT (3) S/P small bowel resection Code(s): Z90.49 - ACQUIRED ABSENCE OF OTHER SPECIFIED PARTS OF DIGESTIVE TRACT (4) Supratherapeutic INR Code(s): R79.1 - ABNORMAL COAGULATION PROFILE (5) CAD (coronary artery disease) Code(s): I25.10 - ATHSCL HEART DISEASE OF [place] CORONARY ARTERY W/O ANG PCTRS Qualifiers: Qualified Code(s): I25.10 - Atherosclerotic heart disease of [place] coronary artery without angina pectoris (6) CHF (congestive heart failure) Code(s): I50.9 - HEART FAILURE, UNSPECIFIED Qualifiers: Qualified Code(s): I50.9 - Heart failure, unspecified (7) ESRD (end stage renal disease) Code(s): N18.6 - END STAGE RENAL DISEASE (8) Hypothyroid Code(s): E03.9 - HYPOTHYROIDISM, UNSPECIFIED Qualifiers: Qualified Code(s): E03.9 - Hypothyroidism, unspecified
--- NOTE | 2018-06-09 17:53 | PN ---
Physical Exam: SUBJECTIVE: Patient seen and examined by me at bedside. No acute events overnight Still complains of diarrhea Patient is still feeling weak and unable to ambulate Denies any fever, chill, nausea, vomiting, chest pain, urinary or bladder symptoms, headaches, dizziness. OBJECTIVE: Vital Signs Period Temp Pulse Resp BP Sys/Emery Pulse Ox Last 24 Hr 98.1 F-98.4 F 60-81 20-20 119-129/52-59 96-96 GENERAL: The patient is awake, alert, frail looking and fully oriented, in no acute distress. EYES: Sclera anicteric, conjunctiva clear. No ptosis. ENT: Moist mucous membranes. LUNGS: bibasilar fine rales with no wheezing or no accessory muscle use. HEART: Regular rate and rhythm, S1, S2 with (+) JOSIE ABDOMEN: Soft, nontender, nondistended, normoactive bowel sounds (+) vertical incisional scar C/D/I EXTREMITIES: No edema. (+) Stage I ulcer of left heel and second toe SKIN: Warm, dry, normal turgor, no rashes or lesions noted Laboratory Results 06/09/18 06:20 06/09/18 06:20 Active Medications Generic Name Dose Route Start Last Admin Trade Name Freq PRN Reason Stop Dose Admin Acetaminophen 650 mg 06/02/18 08:58 06/08/18 21:19 Tylenol - PO 650 mg Q4H PRN Administration HEADACHE Albumin Human 12.5 gm 06/10/18 13:00 Albumin Human 25% IVPB Q30M JULIAN Amiodarone HCl 200 mg 06/01/18 11:21 06/09/18 10:41 Cordarone - PO 200 mg DAILY JULIAN Administration Buspirone HCl 10 mg 06/03/18 14:00 06/09/18 14:45 Buspar - PO 10 mg TID JULIAN Administration Calcium Carbonate 500 mg 06/01/18 16:30 06/09/18 17:10 Os-Merlin 500mg - PO 500 mg TIDAC JULIAN Administration Citalopram Hydrobromide 20 mg 06/01/18 13:15 06/09/18 10:41 Celexa - PO 20 mg DAILY JULIAN Administration Collagenase 1 applic 06/01/18 17:15 06/09/18 10:43 Santyl - TP 1 applic DAILY JULIAN Administration Protocol Cyanocobalamin 100 mcg 06/01/18 13:15 06/09/18 10:41 Vitamin B12 - PO 100 mcg DAILY JULIAN Administration Epoetin Josemanuel 10,000 unit 06/10/18 12:57 Epogen - IVPUSH 06/10/18 12:58 ONCE ONE Folic Acid 1 mg 06/01/18 13:15 06/09/18 10:41 Folic Acid - PO 1 mg DAILY JULIAN Administration Heparin Sodium (Porcine) 1,000 unit 06/08/18 23:20 Heparin - IVPUSH PRN PRN Heparin Heparin Sodium (Porcine) 5,000 unit 06/08/18 23:20 Heparin - IVPUSH PRN PRN Heparin Piperacillin Sod/Tazobactam 50 mls @ 100 mls/hr 06/08/18 18:00 06/09/18 17:11 Sod 2.25 gm/ Dextrose IVPB 100 mls/hr Q8H-IV JULIAN Administration Protocol Heparin Sodium (Porcine) 25, 500 mls @ 20 mls/hr 06/08/18 23:30 06/09/18 09: 06 000 unit/ Sodium Chloride IV 1,100 unit/hr TITR JULIAN 22 mls/hr Administration Protocol 1,000 UNIT/HR Sodium Chloride 250 mls @ 3,000 mls/hr 06/09/18 12:57 Normal Saline - IV 06/10/18 12:57 PRN PRN Hypotension during Dialysis Fluconazole 100 mls @ 100 mls/hr 06/09/18 16:00 06/09/18 17:09 Diflucan 200 Mg/D5w Premixed Ivpb - IVPB 100 mls/hr Q48H JULIAN Administration Levothyroxine Sodium 125 mcg 06/10/18 06:00 Synthroid - PO DAILY@0600 JULIAN Midodrine 5 mg 06/08/18 10:00 06/09/18 17:13 Proamatine - PO 5 mg TID-MID JULIAN Administration Multivit/Ca Carb/B Cmplx/FA/Prenat 1 tablet 06/01/18 13:30 06/09/18 10:41 Nephro-Zane - PO 1 tablet DAILY JULIAN Administration ASSESSMENT/PLAN: Patient is a 67 year old male with a PMHx of CAD s/p CABG, Defibrillator ( [employer]), COPD (on 2-3L Home O2), ESRD (On HD // via Right Tunnel Cath), CHF presents from [facility] ([place]) with Chest pain. #Loculated Ascites -Paracentesis done with >49279 WBC predominately neutrophils. Fluid analysis revealed SAAG <1.1, with high protein and LDH, Consistent with exudative fluid. This may be from possible obstruction, infection, peritonitis -Continue IV Zosyn 2.25gm Q8H -Surgery following and will need to call surgeon from [facility] ([facility] however patient refuses to go to [facility] Patient clinically stable with no fevers , leukocytosis and tolerating PO #Supratherapeutic INR- Improved -Today 1.39 -Patient no longer requires Eliquis, as per oncology. Will continue to monitor off of it -Continue to monitor #Mesentric ischemia s/p right hemicolectomy -Patient had procedures done at [facility] but refuses to go back there. Would like to have different opinions at this hospital and further management. Spoke to surgeon, Dr. Menon for second opinion but is not currently air control/anti air warfare officer and unable to see patient. Recommended patient to be transferred to [facility] where the procedure happened. -Will attempt to have patient transferred to [facility]. #Diarrhea -Possibly infectious vs mechanical. C.Diff negative. Possibly from recent colectomy -Continue to monitor #Filling defect SVC/Left brachiocephalic -Shown on CTA chest report from 05/23/2018 -UE duplex shows right IJ thrombus -Started Heparin drip and then transition to Eliquis outpatient #Hypotension -Continue Midodrine -Patient with low BP but has improved -Continue to monitor #Chest pain -Likely due to anxiety. -Troponin x 3 negative. 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 -Sodium controlled diet #Prophylaxis -SCD's for DVT. -No GI required #Disposition -Full code -Pending Paracentesis. Mindy Floyd [id number] Visit type - Emergency Visit Emergency Visit: Yes ED Registration Date: 05/31/18 Care time: The patient presented to the Emergency Department on the above date and was hospitalized for further evaluation of their emergent condition. - New Patient This patient is new to me today: No - Critical Care Critical Care patient: No
[2018-06-09] MEDS: ACETAMINOPHEN 325 MG TABLET (FP) PO PRN (23:32)
[2018-06-10] MEDS: HEPARIN - 25,000 UNIT in SODIUM CHLORIDE 495 ML IV SCH ×2 (00:46→18:21)
[2018-06-10] MEDS ORDERED: PIPERACILLIN/TAZOBACTAM 2.25 GM VIAL IVPB ONE ×3 (01:37→17:53)
[2018-06-10] MEDS ORDERED: DEXTROSE 5%-WATER - 50 ML IVPB ONE ×3 (01:37→17:53)
[2018-06-10] MEDS: PIPERACILLIN/TAZOB 2.25 GM 2.25 GM in DEXTROSE 5%-WATER - 50 ML IVPB SCH ×3 (02:47→18:03)
[2018-06-10] MEDS: LEVOTHYROXINE NA 125 MCG TABLET (FP) PO SCH (06:31)
[2018-06-10] MEDS: busPIRone HCL 10 MG TABLET (FP) PO SCH ×3 (06:31→22:40)
[2018-06-10] MEDS: CALCIUM (OYSTER SHELL) 500 MG TABLET (FP) PO SCH ×3 (06:31→15:36)
[2018-06-10] MEDS ORDERED: SODIUM CHLORIDE 250 ML IV PRN (07:00)
[2018-06-10] MEDS: ACETAMINOPHEN 325 MG TABLET (FP) PO PRN ×3 (07:16→22:57)
[2018-06-10 08:23] LABS: BASO % 1.9 % (0-2.0); EOS % 1.1 % (0-4.5); HEMATOCRIT 29.1 % (35.4-49); HEMOGLOBIN 9.6 GM/dL (11.7-16.9); LYMPH % 16.2 % (8-40); MCH 30.4 pg (25.7-33.7); MCHC 32.9 g/dl (32.0-35.9); MEAN CELL VOLUME 92.6 fl (80-96); MEAN PLT VOLUME 8.2 fl (7.5-11.1); MONO % 10.8 % (3.8-10.2); PLATELET COUNT 161 K/MM3 (134-434); RBC 3.14 M/mm3 (4.00-5.60); RDW 21.5 % (11.9-15.9); WHITE BLOOD COUNT 5.3 K/mm3 (4.0-10.0)
[2018-06-10] MEDS: ALBUMIN HUMAN 25% 12.5 GM/50 ML VIAL IVPB SCH ×4 (08:30→10:33)
[2018-06-10 08:51] LABS: ANION GAP 9 MMOL/L (8-16); BLOOD UREA NITROGEN 23 mg/dL (7-18); CALCIUM 7.9 mg/dL (8.5-10.1); CHLORIDE 102 mmol/L (98-107); CO2 28 mmol/L (21-32); GLUCOSE,RANDOM 113 mg/dL (74-106); MAGNESIUM 1.9 mg/dL (1.8-2.4); PHOSPHOROUS 1.9 mg/dL (2.5-4.9); POTASSIUM 3.7 mmol/L (3.5-5.1); SODIUM 139 mmol/L (136-145)
[2018-06-10] MEDS ORDERED: EPOETIN ALFA 10,000 UNIT/1 ML VIAL IVPUSH ONE (09:00)
[2018-06-10] MEDS: AMIODARONE HCL 200 MG TABLET (FP) PO SCH (12:16)
[2018-06-10] MEDS: FOLIC ACID 1 MG TABLET (FP) PO SCH (12:16)
[2018-06-10] MEDS: CITALOPRAM HYDROBROMIDE 20 MG TABLET (FP) PO SCH (12:16)
[2018-06-10] MEDS: VITAMIN B COMP W-C 1 EA TABLET PO SCH (12:17)
[2018-06-10] MEDS: CYANOCOBALAMIN (VITAMIN B-12) 100 MCG TABLET PO SCH (12:18)
[2018-06-10] MEDS: COLLAGENASE CLOSTRIDIUM HIST. 30 GRAMS TUBE TP SCH (12:18)
[2018-06-10] MEDS: MIDODRINE HCL 2.5 MG TABLET PO SCH ×3 (12:19→18:12)
--- NOTE | 2018-06-10 12:29 | PN ---
Progress Note, Physician History of Present Illness: Pt remains afebrile, denies abd pain. Still with loose stools. - Current Medication List Current Medications: Active Medications Acetaminophen (Tylenol -) 650 mg PO Q4H PRN PRN Reason: HEADACHE Last Admin: 06/10/18 07:16 Dose: 650 mg Amiodarone HCl (Cordarone -) 200 mg PO DAILY [facility] Last Admin: 06/10/18 12:16 Dose: 200 mg Buspirone HCl (Buspar -) 10 mg PO TID [facility] Last Admin: 06/10/18 06:31 Dose: 10 mg Calcium Carbonate (Os-Merlin 500mg -) 500 mg PO TIDAC [facility] Last Admin: 06/10/18 12:16 Dose: 500 mg Citalopram Hydrobromide (Celexa -) 20 mg PO DAILY [facility] Last Admin: 06/10/18 12:16 Dose: 20 mg Collagenase (Santyl -) 1 applic TP DAILY [facility]; Protocol Last Admin: 06/10/18 12:18 Dose: 1 applic Cyanocobalamin (Vitamin B12 -) 100 mcg PO DAILY [facility] Last Admin: 06/10/18 12:18 Dose: 100 mcg Folic Acid (Folic Acid -) 1 mg PO DAILY [facility] Last Admin: 06/10/18 12:16 Dose: 1 mg Heparin Sodium (Porcine) (Heparin -) 1,000 unit IVPUSH PRN PRN PRN Reason: Heparin Heparin Sodium (Porcine) (Heparin -) 5,000 unit IVPUSH PRN PRN PRN Reason: Heparin Piperacillin Sod/Tazobactam (Sod 2.25 gm/ Dextrose) 50 mls @ 100 mls/hr IVPB Q8H-IV JULIAN; Protocol Last Admin: 06/10/18 12:17 Dose: 100 mls/hr Heparin Sodium (Porcine) 25, (000 unit/ Sodium Chloride) 500 mls @ 20 mls/hr IV TITR JULIAN; Protocol Last Admin: 06/10/18 00:46 Dose: 1,100 unit/hr, 22 mls/hr Sodium Chloride (Normal Saline -) 250 mls @ 3,000 mls/hr IV PRN PRN PRN Reason: Hypotension during Dialysis Stop: 06/10/18 18:00 Fluconazole (Diflucan 200 Mg/D5w Premixed Ivpb -) 100 mls @ 100 mls/hr IVPB Q48H JULIAN Last Admin: 06/09/18 17:09 Dose: 100 mls/hr Levothyroxine Sodium (Synthroid -) 125 mcg PO DAILY@0600 [facility] Last Admin: 06/10/18 06:31 Dose: 125 mcg Midodrine (Proamatine -) 5 mg PO TID-MID [facility] Last Admin: 06/10/18 12:19 Dose: 5 mg Multivit/Ca Carb/B Cmplx/FA/Prenat (Nephro-Zane -) 1 tablet PO DAILY [facility] Last Admin: 06/10/18 12:17 Dose: 1 tablet - Objective Vital Signs: Vital Signs Temperature 97.7 F 06/10/18 07:25 Pulse Rate 63 06/10/18 11:05 Respiratory Rate 18 06/10/18 11:05 Blood Pressure 109/56 L 06/10/18 11:05 O2 Sat by Pulse Oximetry (%) 98 06/09/18 20:30 Constitutional: Yes: No Distress, Calm Cardiovascular: Yes: Regular Rate and Rhythm Respiratory: Yes: Regular Gastrointestinal: Yes: Normal Bowel Sounds, Soft, Ascites Extremities: Yes: WNL Integumentary: Yes: WNL Neurological: Yes: Alert Labs: CBC, BMP 06/10/18 07:30 06/10/18 07:30 INR, PTT INR 1.31 (0.83-1.09) H 06/09/18 06:20 Microbiology 06/07/18 15:10 Paracentesis Gram Stain - Final 06/07/18 15:10 Paracentesis Body Fluid Culture - Preliminary NO AEROBIC GROWTH, 24 HRS 06/07/18 15:10 Paracentesis Anaerobic Culture - Final NO ANAEROBES WERE ISOLATED 06/08/18 09:20 Stool Salmonella/Shigella Culture - Preliminary NO ENTERIC PATHOGENS, 24 HOURS, ON PRIMARY PLATES 06/08/18 09:20 Stool Yersinia Culture - Preliminary NO ENTERIC PATHOGENS, 24 HOURS, ON PRIMARY PLATES 06/08/18 09:20 Stool Vibrio Culture - Final NO GROWTH OF VIBRIO SPECIES OBTAINED 06/08/18 09:20 Stool Escherichia coli 0157 Culture - Final NO GROWTH OF E COLI 0157 OBTAINED 06/08/18 01:31 Stool Gram Stain - Final 06/08/18 01:31 Stool Clostridium difficile Antigen (FLORINA) - Final 06/08/18 01:31 Stool Clostridium difficile Toxin Assay - Final 06/07/18 15:10 Paracentesis RODRIGUEZ Preparation - Preliminary 06/07/18 15:10 Paracentesis Fungal Culture - Preliminary 06/07/18 15:10 Paracentesis AFB Smear Concentration - Preliminary 06/07/18 15:10 Paracentesis Mycobacterial Culture - Preliminary 06/01/18 13:40 Blood - Peripheral Venous Blood Culture - Final NO GROWTH AFTER 5 DAYS INCUBATION 06/01/18 13:50 Blood - Peripheral Venous Blood Culture - Final NO GROWTH AFTER 5 DAYS INCUBATION Assessment/Plan Ascites fluid s/p paracentesis Diarrhea b/l heel ulcers ESRD CAD mesenteric ischemia s/p hemicolectomy COPD R IJ thrombus -- lab results noted -- awaiting fluid analysis results from previous hospitalization -- stool studies neg -- cont. current antibiotics
--- NOTE | 2018-06-10 13:02 | PN ---
Physical Exam: SUBJECTIVE: Patient seen and examined, denies any nausea, vomiting, abdominal pain. No new chest pain or new concerns. OBJECTIVE: Vital Signs Period Temp Pulse Resp BP Sys/Emery Pulse Ox Last 24 Hr 97.7 F-98.4 F 63-86 17-20 90-127/50-66 98 GENERAL: The patient is awake, alert, and fully oriented, in no acute distress. HEAD: Normal with no signs of trauma. EYES: PERRL, extraocular movements intact, sclera anicteric, conjunctiva clear. No ptosis. ENT: Ears normal, nares patent, oropharynx clear without exudates, moist mucous membranes. NECK: Trachea midline, full range of motion, supple. LUNGS: few basilar rales, good air entry, no wheezing HEART: Regular rate and rhythm, S1, S2 without murmur, rub or gallop. ABDOMEN: Soft, unchanged distension, midline surgical scar, no voluntary or involuntary guarding or rigidity, positive bowel sounds Extremities: no edema PSYCH: Normal mood, normal affect. SKIN: Warm, dry, normal turgor, no rashes or lesions noted Laboratory Results - last 24 hr 06/03/18 06/07/18 06/07/18 16:30 12:19 15:10 WBC RBC Hgb Hct MCV MCH MCHC RDW Plt Count MPV Absolute Neuts (auto) Neutrophils % Lymphocytes % Monocytes % Eosinophils % Basophils % Nucleated RBC % PTT (Actin FS) Sodium Potassium Chloride Carbon Dioxide Anion Gap BUN Creatinine Creat Clearance w eGFR POC Glucometer 193 Random Glucose Calcium Phosphorus Magnesium Fluid Total Protein 3.0 Fluid Albumin 1.5 Body Fluid LDH Source 9447 Fluid Amylase 40 Fluid Triglycerides 35 Blood Type O POSITIVE Antibody Screen Negative Crossmatch See Detail 06/07/18 06/09/18 06/10/18 16:44 15:45 07:30 WBC RBC Hgb Hct MCV MCH MCHC RDW Plt Count MPV Absolute Neuts (auto) Neutrophils % Lymphocytes % Monocytes % Eosinophils % Basophils % Nucleated RBC % PTT (Actin FS) 50.0 H 71.5 H Sodium Potassium Chloride Carbon Dioxide Anion Gap BUN Creatinine Creat Clearance w eGFR POC Glucometer 144 Random Glucose Calcium Phosphorus Magnesium Fluid Total Protein Fluid Albumin Body Fluid LDH Source Fluid Amylase Fluid Triglycerides Blood Type Antibody Screen Crossmatch 06/10/18 06/10/18 07:30 07:30 WBC 5.3 RBC 3.14 L Hgb 9.6 L Hct 29.1 L MCV 92.6 MCH 30.4 MCHC 32.9 RDW 21.5 H Plt Count 161 MPV 8.2 Absolute Neuts (auto) 3.7 Neutrophils % 70.0 Lymphocytes % 16.2 D Monocytes % 10.8 H Eosinophils % 1.1 Basophils % 1.9 Nucleated RBC % 0 PTT (Actin FS) Sodium 139 Potassium 3.7 Chloride 102 Carbon Dioxide 28 Anion Gap 9 BUN 23 H Creatinine 4.0 H Creat Clearance w eGFR 15.01 POC Glucometer Random Glucose 113 H Calcium 7.9 L Phosphorus 1.9 L Magnesium 1.9 Fluid Total Protein Fluid Albumin Body Fluid LDH Source Fluid Amylase Fluid Triglycerides Blood Type Antibody Screen Crossmatch Active Medications Generic Name Dose Route Start Last Admin Trade Name Freq PRN Reason Stop Dose Admin Acetaminophen 650 mg 06/10/18 00:02 06/10/18 13:00 Tylenol - PO 650 mg Q4H PRN Administration HEADACHE Amiodarone HCl 200 mg 06/10/18 10:00 06/10/18 12:16 Cordarone - PO 200 mg DAILY JULIAN Administration Buspirone HCl 10 mg 06/10/18 06:00 06/10/18 06:31 Buspar - PO 10 mg TID JULIAN Administration Calcium Carbonate 500 mg 06/10/18 07:00 06/10/18 12:16 Os-Merlin 500mg - PO 500 mg TIDAC JULIAN Administration Citalopram Hydrobromide 20 mg 06/10/18 10:00 06/10/18 12:16 Celexa - PO 20 mg DAILY JULIAN Administration Collagenase 1 applic 06/10/18 10:00 06/10/18 12:18 Santyl - TP 1 applic DAILY JULIAN Administration Protocol Cyanocobalamin 100 mcg 06/10/18 10:00 06/10/18 12:18 Vitamin B12 - PO 100 mcg DAILY JULIAN Administration Folic Acid 1 mg 06/10/18 10:00 06/10/18 12:16 Folic Acid - PO 1 mg DAILY JULIAN Administration Heparin Sodium (Porcine) 1,000 unit 06/08/18 23:20 Heparin - IVPUSH PRN PRN Heparin Heparin Sodium (Porcine) 5,000 unit 06/08/18 23:20 Heparin - IVPUSH PRN PRN Heparin Piperacillin Sod/Tazobactam 50 mls @ 100 mls/hr 06/08/18 18:00 06/10/18 12:17 Sod 2.25 gm/ Dextrose IVPB 100 mls/hr Q8H-IV JULIAN Administration Protocol Heparin Sodium (Porcine) 25, 500 mls @ 20 mls/hr 06/08/18 23:30 06/10/18 00: 46 000 unit/ Sodium Chloride IV 1,100 unit/hr TITR JULIAN 22 mls/hr Administration Protocol 1,000 UNIT/HR Sodium Chloride 250 mls @ 3,000 mls/hr 06/10/18 07:00 Normal Saline - IV 06/10/18 18:00 PRN PRN Hypotension during Dialysis Fluconazole 100 mls @ 100 mls/hr 06/09/18 16:00 06/09/18 17:09 Diflucan 200 Mg/D5w Premixed Ivpb - IVPB 100 mls/hr Q48H JULIAN Administration Levothyroxine Sodium 125 mcg 06/10/18 06:00 06/10/18 06:31 Synthroid - PO 125 mcg DAILY@0600 JULIAN Administration Midodrine 5 mg 06/08/18 10:00 06/10/18 12:19 Proamatine - PO 5 mg TID-MID JULIAN Administration Multivit/Ca Carb/B Cmplx/FA/Prenat 1 tablet 06/10/18 10:00 06/10/18 12:17 Nephro-Zane - PO 1 tablet DAILY JULIAN Administration ASSESSMENT/PLAN: 67 yom with PMhx of CAD s/p CABG 2005, chronic systolic HF s/p ICD ([employer]), COPD on chronic O2 2-3L, ESRD on HD, hypotension on midodrine, HTN , HLD, admitted to [facility] for hip fracture s/p ORIF, course complicated by mesentric ischemia, s/p right hemicolectomy/jejunal/ileal resection, readmitted on 05/23/2018 with shortness of breath/nausea with HD, found with ascitis s/p paracentesis wiht 700 seropurulent fluid, reported cultures with Kleb Oxytoca, s /p ceftriaxone, d/dena on ?Cipro/flagyl x 7 days readmitted with chest pain/ dyspnea/anxiety during HD, found with ascitis, elevated INR . 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 SVC thrombus -CAD s/p CABG -ICD s/p reported h/o shocks on Amiodarone -COPD on 2-3 L home oxygen -Hypotension on Midodrine (off coreg/ACEi) -Hypothyroidism -Hypoalbuminemia -Anemia, suspect multifactorial s/p 1 unit PRBC 06/06 Plan: Abdominal exam benign currently. Surgery/GI/ID input noted. Ascitic fluid with >92323 WBc, zosyn x1. Cultures neg so far, Continue Zosyn per ID. Discussed with Dr. Crum, in process with discussion with Surgeon at [facility] to retrieve information and co-ordinate further care. GI input appreciated. Stool studies neg so far. FOBT neg. s/p 1unit PRBC, appropriate response. Neck US with Right IJ thrombus. Heparin drip.CTA chest noted. Ttransition to eliquis pending surgery/GI input for possible intervention. Hematology input appreciated. Monitor h/h closely. HD per renal, ongoing fluid removal. Albumin/epoeitin per renal Cardiology input noted. Continue amiodarone (prior h/o ICD shocks x 2). OFf coreg/ACEi for now given hypotension. Continue midodrine. TSH noted, Free T4 noted, Endocrine input appreciated, levothyroxine dose increased. DVTPPX heparin drip as above PT eval. Incentive spirometry Plan for D/c to SNF vs transfer for further care based on clinical course. Plan discussed with patient and nursing. Extensive discussion was held with patient's both daughters on 06/09, current clinical course, management were discussed in detail. Visit type - Emergency Visit Emergency Visit: Yes ED Registration Date: 05/31/18 Care time: The patient presented to the Emergency Department on the above date and was hospitalized for further evaluation of their emergent condition. - New Patient This patient is new to me today: No - Critical Care Critical Care patient: No - Discharge Referral Referred to [facility] Med [facility] No
[2018-06-10 13:58] LABS: ANISOCYTOSIS 1+; MACROCYTOSIS 0; PLATELET ESTIMATE DECREASED; TEAR DROP CELLS 1+
--- NOTE | 2018-06-10 14:00 | PN ---
Progress Note (short form) - Note Progress Note: Patient seen in follow up. No new complaints. No significant events overnight. Inpatient Meds reviewed. Current Medications Generic Name Dose Route Start Last Admin Trade Name Frefletcher PRN Reason Stop Dose Admin Acetaminophen 650 mg 06/10/18 00:02 06/10/18 13:00 Tylenol - PO 650 mg Q4H PRN Administration HEADACHE Amiodarone HCl 200 mg 06/10/18 10:00 06/10/18 12:16 Cordarone - PO 200 mg DAILY JLUIAN Administration Buspirone HCl 10 mg 06/10/18 06:00 06/10/18 06:31 Buspar - PO 10 mg TID JULIAN Administration Calcium Carbonate 500 mg 06/10/18 07:00 06/10/18 12:16 Os-Merlin 500mg - PO 500 mg TIDAC JULIAN Administration Citalopram Hydrobromide 20 mg 06/10/18 10:00 06/10/18 12:16 Celexa - PO 20 mg DAILY JULIAN Administration Collagenase 1 applic 06/10/18 10:00 06/10/18 12:18 Santyl - TP 1 applic DAILY JULIAN Administration Protocol Cyanocobalamin 100 mcg 06/10/18 10:00 06/10/18 12:18 Vitamin B12 - PO 100 mcg DAILY JULIAN Administration Folic Acid 1 mg 06/10/18 10:00 06/10/18 12:16 Folic Acid - PO 1 mg DAILY JULIAN Administration Heparin Sodium (Porcine) 1,000 unit 06/08/18 23:20 Heparin - IVPUSH PRN PRN Heparin Heparin Sodium (Porcine) 5,000 unit 06/08/18 23:20 Heparin - IVPUSH PRN PRN Heparin Piperacillin Sod/Tazobactam 50 mls @ 100 mls/hr 06/08/18 18:00 06/10/18 12:17 Sod 2.25 gm/ Dextrose IVPB 100 mls/hr Q8H-IV JULIAN Administration Protocol Heparin Sodium (Porcine) 25, 500 mls @ 20 mls/hr 06/08/18 23:30 06/10/18 00: 46 000 unit/ Sodium Chloride IV 1,100 unit/hr TITR JULIAN 22 mls/hr Administration Protocol 1,000 UNIT/HR Sodium Chloride 250 mls @ 3,000 mls/hr 06/10/18 07:00 Normal Saline - IV 06/10/18 18:00 PRN PRN Hypotension during Dialysis Fluconazole 100 mls @ 100 mls/hr 06/09/18 16:00 06/09/18 17:09 Diflucan 200 Mg/D5w Premixed Ivpb - IVPB 100 mls/hr Q48H JULIAN Administration Levothyroxine Sodium 125 mcg 06/10/18 06:00 06/10/18 06:31 Synthroid - PO 125 mcg DAILY@0600 JULIAN Administration Midodrine 5 mg 06/08/18 10:00 06/10/18 12:19 Proamatine - PO 5 mg TID-MID JULIAN Administration Multivit/Ca Carb/B Cmplx/FA/Prenat 1 tablet 06/10/18 10:00 06/10/18 12:17 Nephro-Zane - PO 1 tablet DAILY JULIAN Administration On Examination: General: In no acute distress, lying comfortably in bed. Extremities: No pallor or icterus. No pedal edema. No palpable lymphadenopathy. Tunneled catheter RIJ, no visible swelling. CVS: S1, S2, regular, no gallop or murmur. Chest: good air entry bilaterally, clear Abdomen: Non-distended, non-tender, no palpable organomegaly. Neuro: Alert, oriented, non-focal. Labs: CBC, BMP 06/10/18 07:30 06/10/18 07:30 Assessment. Suspected mesenteric ischemia, and multiple other comorbidities (incl ESRF on HD , ascites/peritonitis) Hematologyconsulted re concenr about incidentally noted RIJ catheter associated thrombosis, also concern about possible SVC thrombosis, not confirmed or ruled out on recent CT. No plans to remove catheter presently. Agree with ongoing anticoagulation while catheter in-situ. Heparin gtt presently, but would be reasonable to use renally doses apixaban. Ongoing risk:benefit evaluation of anticoagulation. Appears to be high risk for thrombosis presently. When recovered from acute issues, if follow up imaging reveals resolution of observed thrombi, then would be reasonable to discontinue anticoagulation at that time.
--- NOTE | 2018-06-10 14:07 | PN ---
Progress Note, Physician History of Present Illness: Pt seen and examined at bedside. He is awake and alert. He feels that his breathing is improved today compared to yesterday. - Current Medication List Current Medications: Active Medications Acetaminophen (Tylenol -) 650 mg PO Q4H PRN PRN Reason: HEADACHE Last Admin: 06/10/18 13:00 Dose: 650 mg Amiodarone HCl (Cordarone -) 200 mg PO DAILY [facility] Last Admin: 06/10/18 12:16 Dose: 200 mg Buspirone HCl (Buspar -) 10 mg PO TID [facility] Last Admin: 06/10/18 06:31 Dose: 10 mg Calcium Carbonate (Os-Merlin 500mg -) 500 mg PO TIDAC [facility] Last Admin: 06/10/18 12:16 Dose: 500 mg Citalopram Hydrobromide (Celexa -) 20 mg PO DAILY [facility] Last Admin: 06/10/18 12:16 Dose: 20 mg Collagenase (Santyl -) 1 applic TP DAILY [facility]; Protocol Last Admin: 06/10/18 12:18 Dose: 1 applic Cyanocobalamin (Vitamin B12 -) 100 mcg PO DAILY [facility] Last Admin: 06/10/18 12:18 Dose: 100 mcg Folic Acid (Folic Acid -) 1 mg PO DAILY [facility] Last Admin: 06/10/18 12:16 Dose: 1 mg Heparin Sodium (Porcine) (Heparin -) 1,000 unit IVPUSH PRN PRN PRN Reason: Heparin Heparin Sodium (Porcine) (Heparin -) 5,000 unit IVPUSH PRN PRN PRN Reason: Heparin Piperacillin Sod/Tazobactam (Sod 2.25 gm/ Dextrose) 50 mls @ 100 mls/hr IVPB Q8H-IV [facility]; Protocol Last Admin: 06/10/18 12:17 Dose: 100 mls/hr Heparin Sodium (Porcine) 25, (000 unit/ Sodium Chloride) 500 mls @ 20 mls/hr IV TITR [facility]; Protocol Last Admin: 06/10/18 00:46 Dose: 1,100 unit/hr, 22 mls/hr Sodium Chloride (Normal Saline -) 250 mls @ 3,000 mls/hr IV PRN PRN PRN Reason: Hypotension during Dialysis Stop: 06/10/18 18:00 Fluconazole (Diflucan 200 Mg/D5w Premixed Ivpb -) 100 mls @ 100 mls/hr IVPB Q48H [facility] Last Admin: 06/09/18 17:09 Dose: 100 mls/hr Levothyroxine Sodium (Synthroid -) 125 mcg PO DAILY@0600 [facility] Last Admin: 06/10/18 06:31 Dose: 125 mcg Midodrine (Proamatine -) 5 mg PO TID-MID [facility] Last Admin: 06/10/18 12:19 Dose: 5 mg Multivit/Ca Carb/B Cmplx/FA/Prenat (Nephro-Zane -) 1 tablet PO DAILY [facility] Last Admin: 06/10/18 12:17 Dose: 1 tablet - Objective Vital Signs: Vital Signs Temperature 97.7 F 06/10/18 07:25 Pulse Rate 63 06/10/18 11:05 Respiratory Rate 18 06/10/18 11:05 Blood Pressure 109/56 L 06/10/18 11:05 O2 Sat by Pulse Oximetry (%) 98 06/09/18 20:30 Constitutional: Yes: Calm Eyes: Yes: Conjunctiva Clear HENT: Yes: Atraumatic Cardiovascular: Yes: S1, S2 Respiratory: Yes: On Nasal O2 Gastrointestinal: Yes: Soft Musculoskeletal: Yes: Muscle Weakness Edema: No Neurological: Yes: Oriented Psychiatric: Yes: Oriented Labs: CBC, BMP 06/10/18 07:30 06/10/18 07:30 INR, PTT INR 1.31 (0.83-1.09) H 06/09/18 06:20 Problem List - Problems (1) ESRD (end stage renal disease) Code(s): N18.6 - END STAGE RENAL DISEASE Assessment/Plan Current Medications Generic Name Dose Route Start Last Admin Trade Name Freq PRN Reason Stop Dose Admin Acetaminophen 650 mg 06/10/18 00:02 06/10/18 13:00 Tylenol - PO 650 mg Q4H PRN Administration HEADACHE Amiodarone HCl 200 mg 06/10/18 10:00 06/10/18 12:16 Cordarone - PO 200 mg DAILY [facility] Administration Buspirone HCl 10 mg 06/10/18 06:00 06/10/18 06:31 Buspar - PO 10 mg TID [facility] Administration Calcium Carbonate 500 mg 06/10/18 07:00 06/10/18 12:16 Os-Merlin 500mg - PO 500 mg TIDAC [facility] Administration Citalopram Hydrobromide 20 mg 06/10/18 10:00 06/10/18 12:16 Celexa - PO 20 mg DAILY [facility] Administration Collagenase 1 applic 06/10/18 10:00 06/10/18 12:18 Santyl - TP 1 applic DAILY [facility] Administration Protocol Cyanocobalamin 100 mcg 06/10/18 10:00 06/10/18 12:18 Vitamin B12 - PO 100 mcg DAILY [facility] Administration Folic Acid 1 mg 06/10/18 10:00 06/10/18 12:16 Folic Acid - PO 1 mg DAILY [facility] Administration Heparin Sodium (Porcine) 1,000 unit 06/08/18 23:20 Heparin - IVPUSH PRN PRN Heparin Heparin Sodium (Porcine) 5,000 unit 06/08/18 23:20 Heparin - IVPUSH PRN PRN Heparin Piperacillin Sod/Tazobactam 50 mls @ 100 mls/hr 06/08/18 18:00 06/10/18 12:17 Sod 2.25 gm/ Dextrose IVPB 100 mls/hr Q8H-IV [facility] Administration Protocol Heparin Sodium (Porcine) 25, 500 mls @ 20 mls/hr 06/08/18 23:30 06/10/18 00: 46 000 unit/ Sodium Chloride IV 1,100 unit/hr TITR [facility] 22 mls/hr Administration Protocol 1,000 UNIT/HR Sodium Chloride 250 mls @ 3,000 mls/hr 06/10/18 07:00 Normal Saline - IV 06/10/18 18:00 PRN PRN Hypotension during Dialysis Fluconazole 100 mls @ 100 mls/hr 06/09/18 16:00 06/09/18 17:09 Diflucan 200 Mg/D5w Premixed Ivpb - IVPB 100 mls/hr Q48H [facility] Administration Levothyroxine Sodium 125 mcg 06/10/18 06:00 06/10/18 06:31 Synthroid - PO 125 mcg DAILY@0600 [facility] Administration Midodrine 5 mg 06/08/18 10:00 06/10/18 12:19 Proamatine - PO 5 mg TID-MID [facility] Administration Multivit/Ca Carb/B Cmplx/FA/Prenat 1 tablet 06/10/18 10:00 06/10/18 12:17 Nephro-Zane - PO 1 tablet DAILY [facility] Administration Impression 1. ESRD 2. CAD 3. CABG 4. COPD 5. CHF 6. SBP 7. DVT 8. hx mesinteric ischemia 9. hypothyroidism 10. gout 11. hld 12. pleural effusion 13. anemia Plan - HD today - renal diet - vascular follow up - pt had ct angio yesterday - monitor hg - cont epogen - will need fistula once medically stable - will follow Dr Jones
[2018-06-10] MEDS ORDERED: PT OWN MED DRAWER 7, Y5N ONE (18:16)
[2018-06-10] MEDS: BANATROL PLUS POWDER PACKET PO SCH (22:40)
[2018-06-11] MEDS ORDERED: PIPERACILLIN/TAZOBACTAM 2.25 GM VIAL IVPB ONE ×3 (00:23→18:09)
[2018-06-11] MEDS ORDERED: DEXTROSE 5%-WATER - 50 ML IVPB ONE ×3 (00:24→18:09)
[2018-06-11] MEDS: HEPARIN - 25,000 UNIT in SODIUM CHLORIDE 495 ML IV SCH ×2 (01:58→18:28)
[2018-06-11] MEDS: PIPERACILLIN/TAZOB 2.25 GM 2.25 GM in DEXTROSE 5%-WATER - 50 ML IVPB SCH ×3 (01:59→18:30)
[2018-06-11] MEDS: ACETAMINOPHEN 325 MG TABLET (FP) PO PRN ×4 (06:22→21:54)
[2018-06-11] MEDS: busPIRone HCL 10 MG TABLET (FP) PO SCH ×3 (06:22→21:54)
[2018-06-11] MEDS: LEVOTHYROXINE NA 125 MCG TABLET (FP) PO SCH (06:25)
[2018-06-11] MEDS: BANATROL PLUS POWDER PACKET PO SCH ×3 (06:25→21:57)
[2018-06-11 06:26] LABS: BASO % 1.4 % (0-2.0); EOS % 1.6 % (0-4.5); HEMATOCRIT 29.9 % (35.4-49); HEMOGLOBIN 9.7 GM/dL (11.7-16.9); MCH 30.5 pg (25.7-33.7); MCHC 32.4 g/dl (32.0-35.9); MEAN CELL VOLUME 94.2 fl (80-96); MEAN PLT VOLUME 7.7 fl (7.5-11.1); MONO % 12.4 % (3.8-10.2); NEUT % 65.6 % (42.8-82.8); PLATELET COUNT 150 K/MM3 (134-434); RBC 3.18 M/mm3 (4.00-5.60); RDW 22.6 % (11.9-15.9); WHITE BLOOD COUNT 4.6 K/mm3 (4.0-10.0)
[2018-06-11] MEDS: CALCIUM (OYSTER SHELL) 500 MG TABLET (FP) PO SCH ×3 (06:49→16:18)
[2018-06-11 08:09] LABS: ALBUMIN 2.4 g/dl (3.4-5.0); ALK PHOS 104 U/L (45-117); ANION GAP 10 MMOL/L (8-16); BILIRUBIN,TOTAL 0.4 mg/dL (0.2-1); BLOOD UREA NITROGEN 13 mg/dL (7-18); CALCIUM 8.4 mg/dL (8.5-10.1); CHLORIDE 103 mmol/L (98-107); CO2 29 mmol/L (21-32); CREATININE 3.1 mg/dL (0.55-1.3); GLUCOSE,RANDOM 121 mg/dL (74-106); MAGNESIUM 1.9 mg/dL (1.8-2.4); PHOSPHOROUS 1.7 mg/dL (2.5-4.9); POTASSIUM 3.5 mmol/L (3.5-5.1); SGOT/AST 14 U/L (15-37); SGPT/ALT 12 U/L (13-61); SODIUM 142 mmol/L (136-145); TOT PROT 4.9 g/dl (6.4-8.2)
--- NOTE | 2018-06-11 11:20 | PN ---
Physical Exam: SUBJECTIVE: Patient seen and examined, no chest pain, nausea, vomiting or abdominal pain. Tolerating diet well, no new concerns . OBJECTIVE: Vital Signs Period Temp Pulse Resp BP Sys/Emery Pulse Ox Last 24 Hr 98.1 F-98.6 F 65-83 18-22 101-121/54-75 98 Intake & Output 06/08/18 06/09/18 06/10/18 06/11/18 23:59 23:59 23:59 23:59 Intake Total 286 413 2648 50 Balance 483 742 2853 50 Weight 197 lb 9.6 oz 189 lb 12.8 oz GENERAL: The patient is awake, alert, and fully oriented, in no acute distress. HEAD: Normal with no signs of trauma. EYES: PERRL, extraocular movements intact, sclera anicteric, conjunctiva clear. No ptosis. ENT: Ears normal, nares patent, oropharynx clear without exudates, moist mucous membranes. NECK: Trachea midline, full range of motion, supple. LUNGS: few basilar rales, good air entry HEART: S1S2 Regular ABDOMEN: Soft, unchanged distension, non tenderness throughout, no voluntary or involuntary guarding or rigidity, positive bowel sounds, midline well healing incision EXTREMITIES: no pedal edema NEUROLOGICAL: Cranial nerves II through XII grossly intact. Normal speech, gait not observed. PSYCH: Normal mood, normal affect. Laboratory Results - last 24 hr 06/07/18 06/08/18 06/10/18 15:10 09:20 07:30 WBC RBC Hgb Hct MCV MCH MCHC RDW Plt Count MPV Absolute Neuts (auto) Neutrophils % Lymphocytes % Monocytes % Eosinophils % Basophils % Nucleated RBC % Hypochromia 0 Platelet Estimate Decreased Polychromasia 1+ Poikilocytosis 1+ Basophilic Stippling 1+ Anisocytosis 1+ Microcytosis 1+ Macrocytosis 0 Tear Drop Cells 1+ Stomatocytes 1+ PTT (Actin FS) Sodium Potassium Chloride Carbon Dioxide Anion Gap BUN Creatinine Creat Clearance w eGFR Random Glucose Calcium Phosphorus Magnesium Total Bilirubin AST ALT Alkaline Phosphatase Total Protein Albumin POC Fluid pH 7.0 Stool O & P Wet [place] & P Permanent Slide Final report 06/11/18 06/11/18 06/11/18 05:50 05:50 05:50 WBC 4.6 RBC 3.18 L Hgb 9.7 L Hct 29.9 L MCV 94.2 MCH 30.5 MCHC 32.4 RDW 22.6 H Plt Count 150 MPV 7.7 Absolute Neuts (auto) 3.0 Neutrophils % 65.6 Lymphocytes % 19.0 Monocytes % 12.4 H Eosinophils % 1.6 Basophils % 1.4 Nucleated RBC % 0 Hypochromia Platelet Estimate Polychromasia Poikilocytosis Basophilic Stippling Anisocytosis Microcytosis Macrocytosis Tear Drop Cells Stomatocytes PTT (Actin FS) 63.2 H Sodium 142 Potassium 3.5 Chloride 103 Carbon Dioxide 29 Anion Gap 10 BUN 13 Creatinine 3.1 H Creat Clearance w eGFR 20.14 Random Glucose 121 H Calcium 8.4 L Phosphorus 1.7 L Magnesium 1.9 Total Bilirubin 0.4 AST 14 L ALT 12 L Alkaline Phosphatase 104 Total Protein 4.9 L Albumin 2.4 L POC Fluid pH Stool O & P Wet [place] P Permanent Slide Active Medications Generic Name Dose Route Start Last Admin Trade Name Freq PRN Reason Stop Dose Admin Acetaminophen 650 mg 06/10/18 00:02 06/11/18 06:22 Tylenol - PO 650 mg Q4H PRN Administration HEADACHE Amiodarone HCl 200 mg 06/10/18 10:00 06/10/18 12:16 Cordarone - PO 200 mg DAILY [facility] Administration Buspirone HCl 10 mg 06/10/18 06:00 06/11/18 06:22 Buspar - PO 10 mg TID [facility] Administration Calcium Carbonate 500 mg 06/10/18 07:00 06/11/18 06:49 Os-Merlin 500mg - PO 500 mg TIDAC [facility] Administration Citalopram Hydrobromide 20 mg 06/10/18 10:00 06/10/18 12:16 Celexa - PO 20 mg DAILY [facility] Administration Collagenase 1 applic 06/10/18 10:00 06/10/18 12:18 Santyl - TP 1 applic DAILY [facility] Administration Protocol Cyanocobalamin 100 mcg 06/10/18 10:00 06/10/18 12:18 Vitamin B12 - PO 100 mcg DAILY [facility] Administration Folic Acid 1 mg 06/10/18 10:00 06/10/18 12:16 Folic Acid - PO 1 mg DAILY [facility] Administration Heparin Sodium (Porcine) 1,000 unit 06/08/18 23:20 Heparin - IVPUSH PRN PRN Heparin Heparin Sodium (Porcine) 5,000 unit 06/08/18 23:20 Heparin - IVPUSH PRN PRN Heparin Piperacillin Sod/Tazobactam 50 mls @ 100 mls/hr 06/08/18 18:00 06/11/18 01:59 Sod 2.25 gm/ Dextrose IVPB 100 mls/hr Q8H-IV [facility] Administration Protocol Heparin Sodium (Porcine) 25, 500 mls @ 20 mls/hr 06/08/18 23:30 06/11/18 01: 58 000 unit/ Sodium Chloride IV Not Given TITR [facility] Protocol 1,000 UNIT/HR Fluconazole 100 mls @ 100 mls/hr 06/09/18 16:00 06/09/18 17:09 Diflucan 200 Mg/D5w Premixed Ivpb - IVPB 100 mls/hr Q48H [facility] Administration Levothyroxine Sodium 125 mcg 06/10/18 06:00 06/11/18 06:25 Synthroid - PO 125 mcg DAILY@0600 [facility] Administration Midodrine 5 mg 06/08/18 10:00 06/10/18 18:12 Proamatine - PO 5 mg TID-MID [facility] Administration Multivit/Ca Carb/B Cmplx/FA/Prenat 1 tablet 06/10/18 10:00 06/10/18 12:17 Nephro-Zane - PO 1 tablet DAILY [facility] Administration Microbiology 06/07/18 15:10 Paracentesis Gram Stain - Final 06/07/18 15:10 Paracentesis Body Fluid Culture - Final NO GROWTH OF AEROBIC ORGANISMS AFTER 48 HOURS INCUBATION 06/07/18 15:10 Paracentesis Anaerobic Culture - Final NO ANAEROBES WERE ISOLATED 06/08/18 09:20 Stool Salmonella/Shigella Culture - Final NO GROWTH OF SALMONELLA OR SHIGELLA SPECIES OBTAINED 06/08/18 09:20 Stool Campylobacter Culture - Final NO GROWTH OF CAMPYLOBACTER SPECIES OBTAINED 06/08/18 09:20 Stool Yersinia Culture - Final NO GROWTH OF YERSINIA SPECIES OBTAINED 06/08/18 09:20 Stool Vibrio Culture - Final NO GROWTH OF VIBRIO SPECIES OBTAINED 06/08/18 09:20 Stool Escherichia coli 0157 Culture - Final NO GROWTH OF E COLI 0157 OBTAINED 06/08/18 01:31 Stool Gram Stain - Final 06/08/18 01:31 Stool Clostridium difficile Antigen (FLORINA) - Final 06/08/18 01:31 Stool Clostridium difficile Toxin Assay - Final 06/07/18 15:10 Paracentesis RODRIGUEZ Preparation - Preliminary 06/07/18 15:10 Paracentesis Fungal Culture - Preliminary 06/07/18 15:10 Paracentesis AFB Smear Concentration - Preliminary 06/07/18 15:10 Paracentesis Mycobacterial Culture - Preliminary 06/01/18 13:40 Blood - Peripheral Venous Blood Culture - Final NO GROWTH AFTER 5 DAYS INCUBATION 06/01/18 13:50 Blood - Peripheral Venous Blood Culture - Final NO GROWTH AFTER 5 DAYS INCUBATION ASSESSMENT/PLAN: 67 yom with PMhx of CAD s/p CABG 2005, chronic systolic HF s/p ICD ([employer]), COPD on chronic O2 2-3L, ESRD on HD, hypotension on midodrine, HTN , HLD, admitted to [facility] for hip fracture s/p ORIF, course complicated by mesentric ischemia, s/p right hemicolectomy/jejunal/ileal resection, readmitted on 05/23/2018 with shortness of breath/nausea with HD, found with ascitis s/p paracentesis wiht 700 seropurulent fluid, reported cultures with Kleb Oxytoca, s /p ceftriaxone, d/dena on ?Cipro/flagyl x 7 days readmitted with chest pain/ dyspnea/anxiety during HD, found with ascitis, elevated INR . 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 SVC thrombus -CAD s/p CABG -ICD s/p reported h/o shocks on Amiodarone -COPD on 2-3 L home oxygen -Hypotension on Midodrine (off coreg/ACEi) -Hypothyroidism -Hypoalbuminemia -Anemia, suspect multifactorial s/p 1 unit PRBC 06/06 Plan: Abdominal exam benign currently. Surgery/GI/ID input noted. Ascitic fluid with >19874 WBC. Cultures neg so far, Continue Zosyn per ID. Discussed with Dr. Crum, in process with discussion with Surgeon at [facility] to retrieve information and co-ordinate further care. GI input appreciated. Stool studies neg so far. FOBT neg. s/p 1unit PRBC, appropriate response. Neck US with Right IJ thrombus. Heparin drip.CTA chest noted. Transition to eliquis pending surgery/GI input for possible intervention. Hematology input appreciated. Monitor h/h closely. HD per renal, ongoing fluid removal. Albumin/epoeitin per renal Cardiology input noted. Continue amiodarone (prior h/o ICD shocks x 2). OFf coreg/ACEi for now given hypotension. Continue midodrine. TSH noted, Free T4 noted, Endocrine input appreciated, levothyroxine dose increased. DVTPPX heparin drip as above PT eval. Incentive spirometry Plan for D/c to SNF vs transfer for further care based on clinical course. Plan discussed with patient and nursing. Visit type - Emergency Visit Emergency Visit: Yes ED Registration Date: 05/31/18 Care time: The patient presented to the Emergency Department on the above date and was hospitalized for further evaluation of their emergent condition. - New Patient This patient is new to me today: No - Critical Care Critical Care patient: No - Discharge Referral Referred to [facility] Med P.C.: No
[2018-06-11] MEDS: FOLIC ACID 1 MG TABLET (FP) PO SCH (11:25)
[2018-06-11] MEDS: AMIODARONE HCL 200 MG TABLET (FP) PO SCH (11:25)
[2018-06-11] MEDS: MIDODRINE HCL 2.5 MG TABLET PO SCH ×3 (11:26→18:30)
[2018-06-11] MEDS: CITALOPRAM HYDROBROMIDE 20 MG TABLET (FP) PO SCH (11:26)
[2018-06-11] MEDS: VITAMIN B COMP W-C 1 EA TABLET PO SCH (11:27)
[2018-06-11] MEDS: CYANOCOBALAMIN (VITAMIN B-12) 100 MCG TABLET PO SCH (11:27)
[2018-06-11] MEDS: COLLAGENASE CLOSTRIDIUM HIST. 30 GRAMS TUBE TP SCH (11:27)
--- NOTE | 2018-06-11 13:46 | PN ---
Progress Note (short form) - Note Progress Note: Patient seen in follow up. No new complaints. No significant events overnight. Inpatient Meds reviewed. Current Medications Acetaminophen (Tylenol -) 650 mg PO Q4H PRN PRN Reason: HEADACHE Last Admin: 06/11/18 11:25 Dose: 650 mg Amiodarone HCl (Cordarone -) 200 mg PO DAILY [facility] Last Admin: 06/11/18 11:25 Dose: 200 mg Buspirone HCl (Buspar -) 10 mg PO TID [facility] Last Admin: 06/11/18 13:21 Dose: 10 mg Calcium Carbonate (Os-Merlin 500mg -) 500 mg PO TIDAC [facility] Last Admin: 06/11/18 11:25 Dose: 500 mg Citalopram Hydrobromide (Celexa -) 20 mg PO DAILY [facility] Last Admin: 06/11/18 11:26 Dose: 20 mg Collagenase (Santyl -) 1 applic TP DAILY [facility]; Protocol Last Admin: 06/11/18 11:27 Dose: 1 applic Cyanocobalamin (Vitamin B12 -) 100 mcg PO DAILY [facility] Last Admin: 06/11/18 11:27 Dose: 100 mcg Folic Acid (Folic Acid -) 1 mg PO DAILY [facility] Last Admin: 06/11/18 11:25 Dose: 1 mg Heparin Sodium (Porcine) (Heparin -) 1,000 unit IVPUSH PRN PRN PRN Reason: Heparin Heparin Sodium (Porcine) (Heparin -) 5,000 unit IVPUSH PRN PRN PRN Reason: Heparin Piperacillin Sod/Tazobactam (Sod 2.25 gm/ Dextrose) 50 mls @ 100 mls/hr IVPB Q8H-IV [facility]; Protocol Last Admin: 06/11/18 11:26 Dose: 100 mls/hr Heparin Sodium (Porcine) 25, (000 unit/ Sodium Chloride) 500 mls @ 20 mls/hr IV TITR [facility]; Protocol Last Admin: 06/11/18 01:58 Dose: Not Given Fluconazole (Diflucan 200 Mg/D5w Premixed Ivpb -) 100 mls @ 100 mls/hr IVPB Q48H [facility] Last Admin: 06/09/18 17:09 Dose: 100 mls/hr Levothyroxine Sodium (Synthroid -) 125 mcg PO DAILY@0600 [facility] Last Admin: 06/11/18 06:25 Dose: 125 mcg Midodrine (Proamatine -) 5 mg PO TID-MID [facility] Last Admin: 06/11/18 13:22 Dose: 5 mg Multivit/Ca Carb/B Cmplx/FA/Prenat (Nephro-Zane -) 1 tablet PO DAILY [facility] Last Admin: 06/11/18 11:27 Dose: 1 tablet On Examination: Last Vital Signs Temp Pulse Resp BP Pulse Ox 98.1 F 68 18 121/54 L 98 06/11/18 07:00 06/11/18 07:00 06/11/18 07:00 06/11/18 07:00 06/10/18 21:00 General: In no acute distress, lying comfortably in bed. Labs: CBC, BMP 06/11/18 05:50 06/11/18 05:50 Assessment. Suspected mesenteric ischemia, and multiple other comorbidities (incl ESRF on HD , ascites/peritonitis) Hematologyconsulted re concenr about incidentally noted RIJ catheter associated thrombosis, also concern about possible SVC thrombosis, not confirmed or ruled out on recent CT. No plans to remove catheter presently. Agree with ongoing anticoagulation while catheter in-situ. Heparin gtt presently, but would be reasonable to use renally doses apixaban. Ongoing risk:benefit evaluation of anticoagulation. Appears to be high risk for thrombosis presently. When recovered from acute issues, if follow up imaging reveals resolution of observed thrombi, then would be reasonable to discontinue anticoagulation at that time.
--- NOTE | 2018-06-11 15:22 | PN ---
Progress Note, Physician History of Present Illness: Pt without new complaints. Denies abd pain, remains afebrile. - Current Medication List Current Medications: Active Medications Acetaminophen (Tylenol -) 650 mg PO Q4H PRN PRN Reason: HEADACHE Last Admin: 06/11/18 11:25 Dose: 650 mg Amiodarone HCl (Cordarone -) 200 mg PO DAILY [facility] Last Admin: 06/11/18 11:25 Dose: 200 mg Buspirone HCl (Buspar -) 10 mg PO TID [facility] Last Admin: 06/11/18 13:21 Dose: 10 mg Calcium Carbonate (Os-Merlin 500mg -) 500 mg PO TIDAC [facility] Last Admin: 06/11/18 11:25 Dose: 500 mg Citalopram Hydrobromide (Celexa -) 20 mg PO DAILY [facility] Last Admin: 06/11/18 11:26 Dose: 20 mg Collagenase (Santyl -) 1 applic TP DAILY [facility]; Protocol Last Admin: 06/11/18 11:27 Dose: 1 applic Cyanocobalamin (Vitamin B12 -) 100 mcg PO DAILY [facility] Last Admin: 06/11/18 11:27 Dose: 100 mcg Folic Acid (Folic Acid -) 1 mg PO DAILY [facility] Last Admin: 06/11/18 11:25 Dose: 1 mg Heparin Sodium (Porcine) (Heparin -) 1,000 unit IVPUSH PRN PRN PRN Reason: Heparin Heparin Sodium (Porcine) (Heparin -) 5,000 unit IVPUSH PRN PRN PRN Reason: Heparin Piperacillin Sod/Tazobactam (Sod 2.25 gm/ Dextrose) 50 mls @ 100 mls/hr IVPB Q8H-IV [facility]; Protocol Last Admin: 06/11/18 11:26 Dose: 100 mls/hr Heparin Sodium (Porcine) 25, (000 unit/ Sodium Chloride) 500 mls @ 20 mls/hr IV TITR [facility]; Protocol Last Admin: 06/11/18 01:58 Dose: Not Given Fluconazole (Diflucan 200 Mg/D5w Premixed Ivpb -) 100 mls @ 100 mls/hr IVPB Q48H [facility] Last Admin: 06/09/18 17:09 Dose: 100 mls/hr Levothyroxine Sodium (Synthroid -) 125 mcg PO DAILY@0600 [facility] Last Admin: 06/11/18 06:25 Dose: 125 mcg Midodrine (Proamatine -) 5 mg PO TID-MID [facility] Last Admin: 06/11/18 13:22 Dose: 5 mg Multivit/Ca Carb/B Cmplx/FA/Prenat (Nephro-Zane -) 1 tablet PO DAILY [facility] Last Admin: 06/11/18 11:27 Dose: 1 tablet - Objective Vital Signs: Vital Signs Temperature 97.8 F 06/11/18 14:07 Pulse Rate 70 06/11/18 14:07 Respiratory Rate 17 06/11/18 14:07 Blood Pressure 112/58 L 06/11/18 14:07 O2 Sat by Pulse Oximetry (%) 98 06/10/18 21:00 Constitutional: Yes: No Distress Cardiovascular: Yes: Regular Rate and Rhythm Respiratory: Yes: Regular Gastrointestinal: Yes: Normal Bowel Sounds, Soft Wound/Incision: Yes: Dressing Dry and Intact Psychiatric: Yes: Alert Labs: CBC, BMP 06/11/18 05:50 06/11/18 05:50 INR, PTT INR 1.31 (0.83-1.09) H 06/09/18 06:20 Microbiology 06/07/18 15:10 Paracentesis Gram Stain - Final 06/07/18 15:10 Paracentesis Body Fluid Culture - Final NO GROWTH OF AEROBIC ORGANISMS AFTER 48 HOURS INCUBATION 06/07/18 15:10 Paracentesis Anaerobic Culture - Final NO ANAEROBES WERE ISOLATED 06/08/18 09:20 Stool Salmonella/Shigella Culture - Final NO GROWTH OF SALMONELLA OR SHIGELLA SPECIES OBTAINED 06/08/18 09:20 Stool Campylobacter Culture - Final NO GROWTH OF CAMPYLOBACTER SPECIES OBTAINED 06/08/18 09:20 Stool Yersinia Culture - Final NO GROWTH OF YERSINIA SPECIES OBTAINED 06/08/18 09:20 Stool Vibrio Culture - Final NO GROWTH OF VIBRIO SPECIES OBTAINED 06/08/18 09:20 Stool Escherichia coli 0157 Culture - Final NO GROWTH OF E COLI 0157 OBTAINED 06/08/18 01:31 Stool Gram Stain - Final 06/08/18 01:31 Stool Clostridium difficile Antigen (FLORINA) - Final 06/08/18 01:31 Stool Clostridium difficile Toxin Assay - Final 06/07/18 15:10 Paracentesis RODRIGUEZ Preparation - Preliminary 06/07/18 15:10 Paracentesis Fungal Culture - Preliminary 06/07/18 15:10 Paracentesis AFB Smear Concentration - Preliminary 06/07/18 15:10 Paracentesis Mycobacterial Culture - Preliminary 06/01/18 13:40 Blood - Peripheral Venous Blood Culture - Final NO GROWTH AFTER 5 DAYS INCUBATION 06/01/18 13:50 Blood - Peripheral Venous Blood Culture - Final NO GROWTH AFTER 5 DAYS INCUBATION Assessment/Plan Ascites fluid s/p paracentesis Diarrhea b/l heel ulcers ESRD CAD mesenteric ischemia s/p hemicolectomy COPD R IJ thrombus -- Pt remains stable, afebrile -- Peritoneal fluid cultures - no growth -- awaiting fluid analysis results, not available -- stool studies neg -- will consider d/c antibiotics tomorrow
[2018-06-11] MEDS: FLUCONAZOLE 200 MG/D5W 100 ML IVPB SCH (16:18)
[2018-06-11] MEDS ORDERED: PT OWN MED DRAWER 7, Y5N ONE (18:09)
--- NOTE | 2018-06-11 18:19 | PN ---
Progress Note, Physician History of Present Illness: Pt seen and examined at bedside. He is awake and alert. He denies shortness of breath. - Current Medication List Current Medications: Active Medications Acetaminophen (Tylenol -) 650 mg PO Q4H PRN PRN Reason: HEADACHE Last Admin: 06/11/18 16:19 Dose: 650 mg Amiodarone HCl (Cordarone -) 200 mg PO DAILY [facility] Last Admin: 06/11/18 11:25 Dose: 200 mg Buspirone HCl (Buspar -) 10 mg PO TID [facility] Last Admin: 06/11/18 13:21 Dose: 10 mg Calcium Carbonate (Os-Merlin 500mg -) 500 mg PO TIDAC [facility] Last Admin: 06/11/18 16:18 Dose: 500 mg Citalopram Hydrobromide (Celexa -) 20 mg PO DAILY [facility] Last Admin: 06/11/18 11:26 Dose: 20 mg Collagenase (Santyl -) 1 applic TP DAILY [facility]; Protocol Last Admin: 06/11/18 11:27 Dose: 1 applic Cyanocobalamin (Vitamin B12 -) 100 mcg PO DAILY [facility] Last Admin: 06/11/18 11:27 Dose: 100 mcg Folic Acid (Folic Acid -) 1 mg PO DAILY [facility] Last Admin: 06/11/18 11:25 Dose: 1 mg Heparin Sodium (Porcine) (Heparin -) 1,000 unit IVPUSH PRN PRN PRN Reason: Heparin Heparin Sodium (Porcine) (Heparin -) 5,000 unit IVPUSH PRN PRN PRN Reason: Heparin Piperacillin Sod/Tazobactam (Sod 2.25 gm/ Dextrose) 50 mls @ 100 mls/hr IVPB Q8H-IV [facility]; Protocol Last Admin: 06/11/18 11:26 Dose: 100 mls/hr Heparin Sodium (Porcine) 25, (000 unit/ Sodium Chloride) 500 mls @ 20 mls/hr IV TITR [facility]; Protocol Last Admin: 06/11/18 01:58 Dose: Not Given Fluconazole (Diflucan 200 Mg/D5w Premixed Ivpb -) 100 mls @ 100 mls/hr IVPB Q48H [facility] Last Admin: 06/11/18 16:18 Dose: 100 mls/hr Levothyroxine Sodium (Synthroid -) 125 mcg PO DAILY@0600 [facility] Last Admin: 06/11/18 06:25 Dose: 125 mcg Midodrine (Proamatine -) 5 mg PO TID-MID [facility] Last Admin: 06/11/18 13:22 Dose: 5 mg Multivit/Ca Carb/B Cmplx/FA/Prenat (Nephro-Zane -) 1 tablet PO DAILY [facility] Last Admin: 06/11/18 11:27 Dose: 1 tablet - Objective Vital Signs: Vital Signs Temperature 97.8 F 06/11/18 14:07 Pulse Rate 70 06/11/18 14:07 Respiratory Rate 17 06/11/18 14:07 Blood Pressure 112/58 L 06/11/18 14:07 O2 Sat by Pulse Oximetry (%) 98 06/10/18 21:00 Constitutional: Yes: Calm Eyes: Yes: Conjunctiva Clear HENT: Yes: Atraumatic Neck: Yes: Supple Cardiovascular: Yes: S1, S2 Respiratory: Yes: On Nasal O2 Gastrointestinal: Yes: Normal Bowel Sounds, Soft Musculoskeletal: Yes: Muscle Weakness Edema: No Neurological: Yes: Oriented Psychiatric: Yes: Oriented Labs: CBC, BMP 06/11/18 05:50 06/11/18 05:50 INR, PTT INR 1.31 (0.83-1.09) H 06/09/18 06:20 Problem List - Problems (1) ESRD (end stage renal disease) Code(s): N18.6 - END STAGE RENAL DISEASE Assessment/Plan Current Medications Generic Name Dose Route Start Last Admin Trade Name Freq PRN Reason Stop Dose Admin Acetaminophen 650 mg 06/10/18 00:02 06/11/18 16:19 Tylenol - PO 650 mg Q4H PRN Administration HEADACHE Amiodarone HCl 200 mg 06/10/18 10:00 06/11/18 11:25 Cordarone - PO 200 mg DAILY [facility] Administration Buspirone HCl 10 mg 06/10/18 06:00 06/11/18 13:21 Buspar - PO 10 mg TID [facility] Administration Calcium Carbonate 500 mg 06/10/18 07:00 06/11/18 16:18 Os-Merlin 500mg - PO 500 mg TIDAC [facility] Administration Citalopram Hydrobromide 20 mg 06/10/18 10:00 06/11/18 11:26 Celexa - PO 20 mg DAILY [facility] Administration Collagenase 1 applic 06/10/18 10:00 06/11/18 11:27 Santyl - TP 1 applic DAILY [facility] Administration Protocol Cyanocobalamin 100 mcg 06/10/18 10:00 06/11/18 11:27 Vitamin B12 - PO 100 mcg DAILY [facility] Administration Folic Acid 1 mg 06/10/18 10:00 06/11/18 11:25 Folic Acid - PO 1 mg DAILY [facility] Administration Heparin Sodium (Porcine) 1,000 unit 06/08/18 23:20 Heparin - IVPUSH PRN PRN Heparin Heparin Sodium (Porcine) 5,000 unit 06/08/18 23:20 Heparin - IVPUSH PRN PRN Heparin Piperacillin Sod/Tazobactam 50 mls @ 100 mls/hr 06/08/18 18:00 06/11/18 11:26 Sod 2.25 gm/ Dextrose IVPB 100 mls/hr Q8H-IV [facility] Administration Protocol Heparin Sodium (Porcine) 25, 500 mls @ 20 mls/hr 06/08/18 23:30 06/11/18 01: 58 000 unit/ Sodium Chloride IV Not Given TITR [facility] Protocol 1,000 UNIT/HR Fluconazole 100 mls @ 100 mls/hr 06/09/18 16:00 06/11/18 16:18 Diflucan 200 Mg/D5w Premixed Ivpb - IVPB 100 mls/hr Q48H [facility] Administration Levothyroxine Sodium 125 mcg 06/10/18 06:00 06/11/18 06:25 Synthroid - PO 125 mcg DAILY@0600 [facility] Administration Midodrine 5 mg 06/08/18 10:00 06/11/18 13:22 Proamatine - PO 5 mg TID-MID [facility] Administration Multivit/Ca Carb/B Cmplx/FA/Prenat 1 tablet 06/10/18 10:00 06/11/18 11:27 Nephro-Zane - PO 1 tablet DAILY [facility] Administration Impression 1. ESRD 2. CAD 3. CABG 4. COPD 5. CHF 6. SBP 7. DVT 8. hx mesinteric ischemia 9. hypothyroidism 10. gout 11. hld 12. pleural effusion 13. anemia Plan - next HD on Tuesday - renal diet - vascular follow up - pending placement for HD - monitor hg - cont epogen - will need fistula once medically stable - will follow Dr Jones
[2018-06-12] MEDS ORDERED: DEXTROSE 5%-WATER - 50 ML IVPB ONE ×3 (00:57→17:19)
[2018-06-12] MEDS ORDERED: PIPERACILLIN/TAZOBACTAM 2.25 GM VIAL IVPB ONE ×3 (00:57→17:19)
[2018-06-12] MEDS: PIPERACILLIN/TAZOB 2.25 GM 2.25 GM in DEXTROSE 5%-WATER - 50 ML IVPB SCH ×3 (01:41→19:54)
[2018-06-12] MEDS: HEPARIN - 25,000 UNIT in SODIUM CHLORIDE 495 ML IV SCH ×2 (01:47→19:18)
[2018-06-12] MEDS: ACETAMINOPHEN 325 MG TABLET (FP) PO PRN ×4 (01:49→21:59)
[2018-06-12] MEDS: BANATROL PLUS POWDER PACKET PO SCH ×3 (06:09→21:59)
[2018-06-12] MEDS: busPIRone HCL 10 MG TABLET (FP) PO SCH ×3 (06:09→21:59)
[2018-06-12] MEDS: CALCIUM (OYSTER SHELL) 500 MG TABLET (FP) PO SCH ×3 (06:26→19:52)
[2018-06-12] MEDS: LEVOTHYROXINE NA 125 MCG TABLET (FP) PO SCH (06:26)
[2018-06-12 07:29] LABS: BASO % 1.4 % (0-2.0); EOS % 1.9 % (0-4.5); HEMATOCRIT 31.4 % (35.4-49); HEMOGLOBIN 10.1 GM/dL (11.7-16.9); LYMPH % 16.7 % (8-40); MCH 30.6 pg (25.7-33.7); MCHC 32.2 g/dl (32.0-35.9); MEAN CELL VOLUME 94.9 fl (80-96); MEAN PLT VOLUME 8.1 fl (7.5-11.1); MONO % 12.3 % (3.8-10.2); NEUT % 67.7 % (42.8-82.8); PLATELET COUNT 154 K/MM3 (134-434); RBC 3.31 M/mm3 (4.00-5.60); RDW 23.3 % (11.9-15.9); WHITE BLOOD COUNT 4.9 K/mm3 (4.0-10.0)
[2018-06-12 07:52] LABS: ANION GAP 10 MMOL/L (8-16); BLOOD UREA NITROGEN 18 mg/dL (7-18); CALCIUM 8.1 mg/dL (8.5-10.1); CHLORIDE 103 mmol/L (98-107); CO2 27 mmol/L (21-32); CREATININE 3.9 mg/dL (0.55-1.3); GLUCOSE,RANDOM 133 mg/dL (74-106); MAGNESIUM 1.8 mg/dL (1.8-2.4); POTASSIUM 3.6 mmol/L (3.5-5.1); SODIUM 140 mmol/L (136-145)
[2018-06-12] MEDS ORDERED: PT OWN MED DRAWER 7, Y5N ONE ×3 (09:42→19:50)
[2018-06-12] MEDS: VITAMIN B COMP W-C 1 EA TABLET PO SCH (09:47)
[2018-06-12] MEDS: AMIODARONE HCL 200 MG TABLET (FP) PO SCH (09:48)
[2018-06-12] MEDS: CITALOPRAM HYDROBROMIDE 20 MG TABLET (FP) PO SCH (09:48)
[2018-06-12] MEDS: CYANOCOBALAMIN (VITAMIN B-12) 100 MCG TABLET PO SCH (09:48)
[2018-06-12] MEDS: FOLIC ACID 1 MG TABLET (FP) PO SCH (09:48)
--- NOTE | 2018-06-12 09:51 | PN ---
Physical Exam: SUBJECTIVE: Patient seen and examined by me at bedside Reports back pain for the last week and getting worse with no improvement with Tylenol Patient otherwise denies any abdominal pain, chest pain, palpitations, shortness of breath, headaches, nausea, vomiting, fever, chills. OBJECTIVE: Vital Signs Period Temp Pulse Resp BP Sys/Emery Pulse Ox Last 24 Hr 97.3 F-98.0 F 65-70 17-18 112-129/58-63 98 GENERAL: The patient is awake, alert, frail looking and fully oriented, in no acute distress. EYES: Sclera anicteric, conjunctiva clear. No ptosis. ENT: Moist mucous membranes. LUNGS: bibasilar fine rales with no wheezing or no accessory muscle use. HEART: Regular rate and rhythm, S1, S2 with (+) JOSIE ABDOMEN: Soft, nontender, nondistended, normoactive bowel sounds (+) vertical incisional scar C/D/I EXTREMITIES: No edema. (+) Stage I ulcer of left heel and second toe SKIN: Warm, dry, normal turgor, no rashes or lesions noted Laboratory Results 06/12/18 06:30 06/12/18 06:30 Active Medications Generic Name Dose Route Start Last Admin Trade Name Freq PRN Reason Stop Dose Admin Acetaminophen 650 mg 06/10/18 00:02 06/12/18 06:09 Tylenol - PO 650 mg Q4H PRN Administration HEADACHE Amiodarone HCl 200 mg 06/10/18 10:00 06/11/18 11:25 Cordarone - PO 200 mg DAILY [facility] Administration Buspirone HCl 10 mg 06/10/18 06:00 06/12/18 06:09 Buspar - PO 10 mg TID [facility] Administration Calcium Carbonate 500 mg 06/10/18 07:00 06/12/18 06:26 Os-Merlin 500mg - PO 500 mg TIDAC [facility] Administration Citalopram Hydrobromide 20 mg 06/10/18 10:00 06/11/18 11:26 Celexa - PO 20 mg DAILY [facility] Administration Collagenase 1 applic 06/10/18 10:00 06/11/18 11:27 Santyl - TP 1 applic DAILY [facility] Administration Protocol Cyanocobalamin 100 mcg 06/10/18 10:00 06/11/18 11:27 Vitamin B12 - PO 100 mcg DAILY [facility] Administration Folic Acid 1 mg 06/10/18 10:00 06/11/18 11:25 Folic Acid - PO 1 mg DAILY [facility] Administration Heparin Sodium (Porcine) 1,000 unit 06/08/18 23:20 Heparin - IVPUSH PRN PRN Heparin Heparin Sodium (Porcine) 5,000 unit 06/08/18 23:20 Heparin - IVPUSH PRN PRN Heparin Piperacillin Sod/Tazobactam 50 mls @ 100 mls/hr 06/08/18 18:00 06/12/18 01:41 Sod 2.25 gm/ Dextrose IVPB 100 mls/hr Q8H-IV [facility] Administration Protocol Heparin Sodium (Porcine) 25, 500 mls @ 20 mls/hr 06/08/18 23:30 06/12/18 08: 04 000 unit/ Sodium Chloride IV 1,100 unit/hr TITR [facility] 22 mls/hr Titration Protocol 1,000 UNIT/HR Fluconazole 100 mls @ 100 mls/hr 06/09/18 16:00 06/11/18 16:18 Diflucan 200 Mg/D5w Premixed Ivpb - IVPB 100 mls/hr Q48H [facility] Administration Levothyroxine Sodium 125 mcg 06/10/18 06:00 06/12/18 06:26 Synthroid - PO 125 mcg DAILY@0600 [facility] Administration Lidocaine 1 patch 06/12/18 10:00 Lidoderm Patch - TP DAILY [facility] Midodrine 5 mg 06/08/18 10:00 06/11/18 18:30 Proamatine - PO 5 mg TID-MID [facility] Administration Miscellaneous 1 each 06/12/18 22:00 Lidoderm Patch Removal MC DAILY@2200 [facility] Multivit/Ca Carb/B Cmplx/FA/Prenat 1 tablet 06/10/18 10:00 06/11/18 11:27 Nephro-Zane - PO 1 tablet DAILY [facility] Administration ASSESSMENT/PLAN: Patient is a 67 year old male with a PMHx of CAD s/p CABG, Defibrillator ( [employer]), COPD (on 2-3L Home O2), ESRD (On HD // via Right Tunnel Cath), CHF presents from [facility]) with Chest pain. #Loculated Ascites -Paracentesis done with >01045 WBC predominately neutrophils. Fluid analysis revealed SAAG <1.1, with high protein and LDH, Consistent with exudative fluid. This may be from possible obstruction, infection, peritonitis -Continue IV Zosyn 2.25gm Q8H day#5 -Surgery following and will need to call surgeon from [facility], however patient refuses to go to [facility]. Patient clinically stable with no fevers , leukocytosis and tolerating PO #Mesentric ischemia s/p right hemicolectomy -Patient had procedures done at [facility] but refuses to go back there. Would like to have different opinions at this hospital and further management. Spoke to surgeon, Dr. 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 Recommended patient to be transferred to [facility] where the procedure happened. -Will attempt to have patient transferred back to [facility] once Dr. Crum speaks to surgeon there #Supratherapeutic INR- Resolved -Continue Heparin Drip for thrombus -Continue to monitor #Back Pain -Lidocaine patch for pain #Diarrhea -Possibly infectious vs mechanical. C.Diff negative. Possibly from recent colectomy -Continue to monitor #Filling defect SVC/Left brachiocephalic -Shown on CTA chest report from 05/23/2018 -UE duplex shows right IJ thrombus -Continue Heparin drip and then transition to Eliquis outpatient #Hypotension -Continue Midodrine -Patient with low BP but has improved -Continue to monitor #Chest pain -Likely due to anxiety. -Resolved #ESRD -HD to be done (T,TH,Tue) -Epogen for anemia -Will need follow up with Dr Woodard for fistula #CAD -Holding Coreg due to hypotension -Continue Amiodarone as patient has history of shocks from ICD #Acute on Chronic systolic CHF -Improved -No SOB today -Continue HD to remove fluid -On no ARB/DELANO or BB due to low BP #Hypothyroidism elevated TSH is secondary to malabsorption of LT4 -Increased LT4 125 mcg, as per endo #Anxiety -Continue Buspar and Celexa #F/E/N -On no fluids -Electrolytes wnl. -Sodium controlled diet #Prophylaxis -Heparin drip for DVT. -No GI required #Disposition -Full code -Pending call back from surgeon art [facility] Mindy Floyd [id number] Visit type - Emergency Visit Emergency Visit: Yes ED Registration Date: 05/31/18 Care time: The patient presented to the Emergency Department on the above date and was hospitalized for further evaluation of their emergent condition. - New Patient This patient is new to me today: No - Critical Care Critical Care patient: No
[2018-06-12] MEDS: MIDODRINE HCL 2.5 MG TABLET PO SCH ×3 (09:52→19:52)
[2018-06-12] MEDS: RANITIDINE HCL 150 MG TABLET (FP) PO SCH ×3 (11:28→21:43)
[2018-06-12] MEDS: LIDOCAINE 5% TOPICAL PATCH TP SCH (11:29)
--- NOTE | 2018-06-12 11:59 | PN ---
Teaching Attending Note Name of Resident: Mindy Floyd ATTENDING PHYSICIAN STATEMENT I saw and evaluated the patient. I reviewed the resident's note and discussed the case with the resident. I agree with the resident's findings and plan as documented with exceptions below. SUBJECTIVE: Patient seen and examined. Reports generalize back pain/spasms, attributes to the 'bed'. no nausea, vomiting, chest pain or abdominal symptoms, tolerating diet well. OBJECTIVE: Vital Signs Period Temp Pulse Resp BP Sys/Emery Pulse Ox Last 24 Hr 97.3 F-98.0 F 65-70 17-18 112-129/58-63 98 Intake & Output 06/09/18 06/10/18 06/11/18 06/12/18 23:59 23:59 23:59 23:59 Intake Total 716 1490 700 292 Balance 716 1490 700 292 Weight 189 lb 12.8 oz General: lying in bed in no acute distress Chest; few basilar rales Abdomen:Soft, unchanged distension, well healing midline incision, positive bowel sounds, NT throughout Musculoskeletal: no spinal or paraspinal tenderness, LE power 5/5 Home Medications Medication Instructions Recorded Allopurinol [Zyloprim -] 1 tab PO DAILY 03/17/18 Amiodarone HCl 1 tab PO DAILY 03/17/18 Aspirin [ASA -] 81 mg PO DAILY 03/17/18 Carvedilol 1 tab PO BID 03/17/18 Levothyroxine [Synthroid -] 1 tab PO DAILY 03/17/18 Pravastatin Sodium [Pravachol -] 1 tab PO DAILY 03/17/18 Zolpidem Tartrate [Ambien Cr] 1 tab PO HS 03/17/18 Acetaminophen [Tylenol] 650 mg PO DAILY PRN 05/31/18 Apixaban [Eliquis -] 2.5 mg PO BID 05/31/18 Calcium Carbonate [Calcium] 500 mg PO AC 05/31/18 Citalopram Hydrobromide 20 mg PO DAILY 05/31/18 [Citalopram HBr] Cyanocobalamin [Vitamin B12 -] 100 mcg PO DAILY 05/31/18 Folic Acid - 1 mg PO DAILY 05/31/18 Melatonin/Pyridoxine HCl (B6) 1 each PO HS 05/31/18 [Melatonin 10 mg Tablet] Midodrine HCl [Proamatine -] 5 mg PO TID 05/31/18 Vit B Comp No.3/Folic/C/Biotin 1 each PO DAILY 05/31/18 [Krystina-Zane Rx Tablet] Active Medications Acetaminophen (Tylenol -) 650 mg PO Q4H PRN PRN Reason: HEADACHE Last Admin: 06/12/18 06:09 Dose: 650 mg Amiodarone HCl (Cordarone -) 200 mg PO DAILY [facility] Last Admin: 06/12/18 09:48 Dose: 200 mg Buspirone HCl (Buspar -) 10 mg PO TID [facility] Last Admin: 06/12/18 06:09 Dose: 10 mg Calcium Carbonate (Os-Merlin 500mg -) 500 mg PO TIDAC [facility] Last Admin: 06/12/18 11:27 Dose: 500 mg Citalopram Hydrobromide (Celexa -) 20 mg PO DAILY [facility] Last Admin: 06/12/18 09:48 Dose: 20 mg Collagenase (Santyl -) 1 applic TP DAILY [facility]; Protocol Last Admin: 06/11/18 11:27 Dose: 1 applic Cyanocobalamin (Vitamin B12 -) 100 mcg PO DAILY [facility] Last Admin: 06/12/18 09:48 Dose: 100 mcg Folic Acid (Folic Acid -) 1 mg PO DAILY [facility] Last Admin: 06/12/18 09:48 Dose: 1 mg Heparin Sodium (Porcine) (Heparin -) 1,000 unit IVPUSH PRN PRN PRN Reason: Heparin Heparin Sodium (Porcine) (Heparin -) 5,000 unit IVPUSH PRN PRN PRN Reason: Heparin Piperacillin Sod/Tazobactam (Sod 2.25 gm/ Dextrose) 50 mls @ 100 mls/hr IVPB Q8H-IV [facility]; Protocol Last Admin: 06/12/18 09:53 Dose: 100 mls/hr Heparin Sodium (Porcine) 25, (000 unit/ Sodium Chloride) 500 mls @ 20 mls/hr IV TITR [facility]; Protocol Last Titration: 06/12/18 08:04 Dose: 1,100 unit/hr, 22 mls/hr Fluconazole (Diflucan 200 Mg/D5w Premixed Ivpb -) 100 mls @ 100 mls/hr IVPB Q48H [facility] Last Admin: 06/11/18 16:18 Dose: 100 mls/hr Levothyroxine Sodium (Synthroid -) 125 mcg PO DAILY@0600 [facility] Last Admin: 06/12/18 06:26 Dose: 125 mcg Lidocaine (Lidoderm Patch -) 1 patch TP DAILY [facility] Last Admin: 06/12/18 11:29 Dose: 1 patch Midodrine (Proamatine -) 5 mg PO TID-MID [facility] Last Admin: 06/12/18 09:52 Dose: 5 mg Miscellaneous (Lidoderm Patch Removal) 1 each MC DAILY@2200 [facility] Multivit/Ca Carb/B Cmplx/FA/Prenat (Nephro-Zane -) 1 tablet PO DAILY [facility] Last Admin: 06/12/18 09:47 Dose: 1 tablet Ranitidine HCl (Zantac -) 150 mg PO BID [facility] Last Admin: 06/12/18 11:28 Dose: Not Given Laboratory Results - last 24 hr 06/12/18 06/12/18 06/12/18 06:30 06:30 06:30 WBC 4.9 RBC 3.31 L Hgb 10.1 L Hct 31.4 L MCV 94.9 MCH 30.6 MCHC 32.2 RDW 23.3 H Plt Count 154 MPV 8.1 Absolute Neuts (auto) 3.3 Neutrophils % 67.7 Lymphocytes % 16.7 Monocytes % 12.3 H Eosinophils % 1.9 Basophils % 1.4 Nucleated RBC % 0 PTT (Actin FS) 56.4 H Sodium 140 Potassium 3.6 Chloride 103 Carbon Dioxide 27 Anion Gap 10 BUN 18 Creatinine 3.9 H Creat Clearance w eGFR 15.45 Random Glucose 133 H Calcium 8.1 L Phosphorus 2.0 L Magnesium 1.8 Microbiology 06/07/18 15:10 Paracentesis Gram Stain - Final 06/07/18 15:10 Paracentesis Body Fluid Culture - Final NO GROWTH OF AEROBIC ORGANISMS AFTER 48 HOURS INCUBATION 06/07/18 15:10 Paracentesis Anaerobic Culture - Final NO ANAEROBES WERE ISOLATED 06/08/18 09:20 Stool Salmonella/Shigella Culture - Final NO GROWTH OF SALMONELLA OR SHIGELLA SPECIES OBTAINED 06/08/18 09:20 Stool Campylobacter Culture - Final NO GROWTH OF CAMPYLOBACTER SPECIES OBTAINED 06/08/18 09:20 Stool Yersinia Culture - Final NO GROWTH OF YERSINIA SPECIES OBTAINED 06/08/18 09:20 Stool Vibrio Culture - Final NO GROWTH OF VIBRIO SPECIES OBTAINED 06/08/18 09:20 Stool Escherichia coli 0157 Culture - Final NO GROWTH OF E COLI 0157 OBTAINED 06/08/18 01:31 Stool Gram Stain - Final 06/08/18 01:31 Stool Clostridium difficile Antigen (FLORINA) - Final 06/08/18 01:31 Stool Clostridium difficile Toxin Assay - Final 06/07/18 15:10 Paracentesis RODRIGUEZ Preparation - Preliminary 06/07/18 15:10 Paracentesis Fungal Culture - Preliminary 06/07/18 15:10 Paracentesis AFB Smear Concentration - Preliminary 06/07/18 15:10 Paracentesis Mycobacterial Culture - Preliminary 06/01/18 13:40 Blood - Peripheral Venous Blood Culture - Final NO GROWTH AFTER 5 DAYS INCUBATION 06/01/18 13:50 Blood - Peripheral Venous Blood Culture - Final NO GROWTH AFTER 5 DAYS INCUBATION ASSESSMENT AND PLAN: 67 yom with PMhx of CAD s/p CABG 2005, chronic systolic HF s/p ICD ([employer]), COPD on chronic O2 2-3L, ESRD on HD, hypotension on midodrine, HTN , HLD, admitted to [facility] for hip fracture s/p ORIF, course complicated by mesentric ischemia, s/p right hemicolectomy/jejunal/ileal resection, readmitted on 05/23/2018 with shortness of breath/nausea with HD, found with ascitis s/p paracentesis wiht 700 seropurulent fluid, reported cultures with Kleb Oxytoca, s /p ceftriaxone, d/dena on ?Cipro/flagyl x 7 days readmitted with chest pain/ dyspnea/anxiety during HD, found with ascitis, elevated INR . 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 SVC thrombus -CAD s/p CABG -ICD s/p reported h/o shocks on Amiodarone -COPD on 2-3 L home oxygen -Hypotension on Midodrine (off coreg/ACEi) -Hypothyroidism -Hypoalbuminemia -Anemia, suspect multifactorial s/p 1 unit PRBC 06/06 -Low back pain, musculoskeletal Plan: Abdominal exam benign currently. Surgery/GI/ID input noted. Ascitic fluid with >05734 WBC. Cultures neg so far, Continue Zosyn per ID. Discussed with Dr. Crum, in process with discussion with Surgeon at [facility] to retrieve information and co-ordinate further care, awaiting call back as discussed Patient currently stable, afebrile, with normal WBC and non concerning abdominal exam. GI input appreciated. Stool studies neg so far. FOBT neg. s/p 1unit PRBC, appropriate response. Neck US with Right IJ thrombus. Heparin drip.CTA chest noted. Transition to [facility] pending surgery/GI input for possible intervention. Hematology input appreciated. Monitor h/h closely. HD per renal, ongoing fluid removal. Albumin/epoeitin per renal Cardiology input noted. Continue amiodarone (prior h/o ICD shocks x 2). OFf coreg/ACEi for now given hypotension. Continue midodrine. TSH noted, Free T4 noted, Endocrine input appreciated, levothyroxine dose increased. OFfer to do lumbar xray, patient declines "no its the bed". DVTPPX heparin drip as above PT eval. Incentive spirometry Plan for D/c to SNF vs transfer for further care based on clinical course. Plan discussed with patient and nursing.
--- NOTE | 2018-06-12 12:51 | PN ---
Progress Note (short form) - Note Progress Note: - Note Progress Note: s: no cp sob palps dizzy o: Vital Signs Period Temp Pulse Resp BP Sys/Emery Pulse Ox Last 24 Hr 97.3 F-98.2 F 60-81 18-20 106-147/52-67 96 Constitutional: Yes: Well Nourished, No Distress, Calm Eyes: Yes: Conjunctiva Clear HENT: Yes: Atraumatic, Normocephalic Neck: Yes: Supple, Trachea Midline Respiratory: Yes: cta bl nl eff Gastrointestinal: Yes: Normal Bowel Sounds, Soft Cardiovascular: Yes: Regular Rate and Rhythm JVD: No Carotid Bruit: No PMI: Non-Displaced Heart Sounds: Yes: S1, S2 Musculoskeletal: No: Back Pain Extremities: No: Cold Edema: trace Peripheral Pulses: 2+ Left Doralis Pedis, 2+ Right Dorsalis Pedis Integumentary: No: Jaundice Neurological: Yes: Alert, Oriented Current Medications Acetaminophen (Tylenol -) 650 mg PO Q4H PRN PRN Reason: HEADACHE Last Admin: 06/12/18 06:09 Dose: 650 mg Amiodarone HCl (Cordarone -) 200 mg PO DAILY [facility] Last Admin: 06/12/18 09:48 Dose: 200 mg Buspirone HCl (Buspar -) 10 mg PO TID [facility] Last Admin: 06/12/18 06:09 Dose: 10 mg Calcium Carbonate (Os-Merlin 500mg -) 500 mg PO TIDAC [facility] Last Admin: 06/12/18 11:27 Dose: 500 mg Citalopram Hydrobromide (Celexa -) 20 mg PO DAILY [facility] Last Admin: 06/12/18 09:48 Dose: 20 mg Collagenase (Santyl -) 1 applic TP DAILY [facility]; Protocol Last Admin: 06/11/18 11:27 Dose: 1 applic Cyanocobalamin (Vitamin B12 -) 100 mcg PO DAILY [facility] Last Admin: 06/12/18 09:48 Dose: 100 mcg Folic Acid (Folic Acid -) 1 mg PO DAILY [facility] Last Admin: 06/12/18 09:48 Dose: 1 mg Heparin Sodium (Porcine) (Heparin -) 1,000 unit IVPUSH PRN PRN PRN Reason: Heparin Heparin Sodium (Porcine) (Heparin -) 5,000 unit IVPUSH PRN PRN PRN Reason: Heparin Piperacillin Sod/Tazobactam (Sod 2.25 gm/ Dextrose) 50 mls @ 100 mls/hr IVPB Q8H-IV [facility]; Protocol Last Admin: 06/12/18 09:53 Dose: 100 mls/hr Heparin Sodium (Porcine) 25, (000 unit/ Sodium Chloride) 500 mls @ 20 mls/hr IV TITR [facility]; Protocol Last Titration: 06/12/18 08:04 Dose: 1,100 unit/hr, 22 mls/hr Fluconazole (Diflucan 200 Mg/D5w Premixed Ivpb -) 100 mls @ 100 mls/hr IVPB Q48H [facility] Last Admin: 06/11/18 16:18 Dose: 100 mls/hr Levothyroxine Sodium (Synthroid -) 125 mcg PO DAILY@0600 [facility] Last Admin: 06/12/18 06:26 Dose: 125 mcg Lidocaine (Lidoderm Patch -) 1 patch TP DAILY [facility] Last Admin: 06/12/18 11:29 Dose: 1 patch Midodrine (Proamatine -) 5 mg PO TID-MID [facility] Last Admin: 06/12/18 09:52 Dose: 5 mg Miscellaneous (Lidoderm Patch Removal) 1 each MC DAILY@2200 [facility] Multivit/Ca Carb/B Cmplx/FA/Prenat (Nephro-Zane -) 1 tablet PO DAILY [facility] Last Admin: 06/12/18 09:47 Dose: 1 tablet Ranitidine HCl (Zantac -) 150 mg PO BID [facility] Last Admin: 06/12/18 11:28 Dose: Not Given Assessment/Plan echo 05/2018 nl LV size, mildly reduced function EF 45-50%, mild global hypokinesis of LV, nl RV, ppm lead in RV and RA, tr TR EKG: sinus, prolonged QTC, old septal infarct Shortness of breath - trop neg x 3 - also with COPD hx, on chronic O2 - after hd pt feeling better, no sob acute on chronic systolic HF - mildly reduced EF on echo - appeared volume up as above on admit - volume management per renal-->pt feeling better after hd - not on DELANO/BB due to low BP Prolonged QTc - avoid QT prolonging agents - maintain K >4, Mg >2 s/p ICD ([place]) - outpatient follow up, Dr. Stover - recent device checks unremarkable per patient - cont amiodarone hypotension - continue midodrine ESRD on HD - renal consulted CAD, s/p CABG - cont statin - holding aspirin, elevated INR and anemia mesenteric ischemia - recent dx, s/p surgery during recent admission for hip fx anemia - manage per primary ascites: -GI, ID following, on abx. manage per primary Right IJ dvt: -plans per vascular, on hep gtt
[2018-06-12 13:42] VITALS: BMI 28.7
--- NOTE | 2018-06-12 14:17 | PN ---
Progress Note, Physician History of Present Illness: no complaints no new issues - Current Medication List Current Medications: Active Medications Acetaminophen (Tylenol -) 650 mg PO Q4H PRN PRN Reason: HEADACHE Last Admin: 06/12/18 06:09 Dose: 650 mg Amiodarone HCl (Cordarone -) 200 mg PO DAILY [facility] Last Admin: 06/12/18 09:48 Dose: 200 mg Buspirone HCl (Buspar -) 10 mg PO TID [facility] Last Admin: 06/12/18 06:09 Dose: 10 mg Calcium Carbonate (Os-Merlin 500mg -) 500 mg PO TIDAC [facility] Last Admin: 06/12/18 11:27 Dose: 500 mg Citalopram Hydrobromide (Celexa -) 20 mg PO DAILY [facility] Last Admin: 06/12/18 09:48 Dose: 20 mg Collagenase (Santyl -) 1 applic TP DAILY [facility]; Protocol Last Admin: 06/11/18 11:27 Dose: 1 applic Cyanocobalamin (Vitamin B12 -) 100 mcg PO DAILY [facility] Last Admin: 06/12/18 09:48 Dose: 100 mcg Folic Acid (Folic Acid -) 1 mg PO DAILY [facility] Last Admin: 06/12/18 09:48 Dose: 1 mg Heparin Sodium (Porcine) (Heparin -) 1,000 unit IVPUSH PRN PRN PRN Reason: Heparin Heparin Sodium (Porcine) (Heparin -) 5,000 unit IVPUSH PRN PRN PRN Reason: Heparin Piperacillin Sod/Tazobactam (Sod 2.25 gm/ Dextrose) 50 mls @ 100 mls/hr IVPB Q8H-IV [facility]; Protocol Last Admin: 06/12/18 09:53 Dose: 100 mls/hr Heparin Sodium (Porcine) 25, (000 unit/ Sodium Chloride) 500 mls @ 20 mls/hr IV TITR [facility]; Protocol Last Titration: 06/12/18 08:04 Dose: 1,100 unit/hr, 22 mls/hr Fluconazole (Diflucan 200 Mg/D5w Premixed Ivpb -) 100 mls @ 100 mls/hr IVPB Q48H [facility] Last Admin: 06/11/18 16:18 Dose: 100 mls/hr Levothyroxine Sodium (Synthroid -) 125 mcg PO DAILY@0600 [facility] Last Admin: 06/12/18 06:26 Dose: 125 mcg Lidocaine (Lidoderm Patch -) 1 patch TP DAILY [facility] Last Admin: 06/12/18 11:29 Dose: 1 patch Midodrine (Proamatine -) 5 mg PO TID-MID [facility] Last Admin: 06/12/18 09:52 Dose: 5 mg Miscellaneous (Lidoderm Patch Removal) 1 each MC DAILY@2200 [facility] Multivit/Ca Carb/B Cmplx/FA/Prenat (Nephro-Zane -) 1 tablet PO DAILY [facility] Last Admin: 06/12/18 09:47 Dose: 1 tablet Ranitidine HCl (Zantac -) 150 mg PO BID [facility] Last Admin: 06/12/18 11:28 Dose: Not Given - Objective Vital Signs: Vital Signs Temperature 97.3 F L 06/12/18 06:00 Pulse Rate 76 06/12/18 10:00 Respiratory Rate 18 06/12/18 10:00 Blood Pressure 110/60 06/12/18 10:00 O2 Sat by Pulse Oximetry (%) 98 06/12/18 09:00 Constitutional: Yes: No Distress, Calm Cardiovascular: Yes: S1, S2 Respiratory: Yes: Regular, CTA Bilaterally Gastrointestinal: Yes: Normal Bowel Sounds, Soft, Ascites Musculoskeletal: Yes: WNL Extremities: Yes: WNL Wound/Incision: Yes: Dressing Dry and Intact, Other Neurological: Yes: Alert, Oriented Psychiatric: Yes: Alert, Oriented Labs: CBC, BMP 06/12/18 06:30 06/12/18 06:30 INR, PTT INR 1.31 (0.83-1.09) H 06/09/18 06:20 Assessment/Plan ASSESSMENT AND PLAN: (1) Hypotension Code(s): I95.9 - HYPOTENSION, UNSPECIFIED (2) ESRD (end stage renal disease) Code(s): N18.6 - END STAGE RENAL DISEASE (3) Ascites Code(s): R18.8 - OTHER ASCITES (4) Supratherapeutic INR Code(s): R79.1 - ABNORMAL COAGULATION PROFILE (5) CAD (coronary artery disease) Code(s): I25.10 - ATHSCL HEART DISEASE OF [place] CORONARY ARTERY W/O ANG PCTRS (6) CHF (congestive heart failure) Code(s): I50.9 - HEART FAILURE, UNSPECIFIED Qualifiers: Heart failure chronicity: acute on chronic (7) Hypothyroid Code(s): E03.9 - HYPOTHYROIDISM, UNSPECIFIED (8) SBP (secondary bacterial peritonitis) Code(s): K65.2 - SPONTANEOUS BACTERIAL PERITONITIS (9) Anxiety -consult psychiatry 10 b/l heel ulcer as far as i think i am worried is there any leak from the gi tract a small leak as the collection poly microbial from the last time as far as i know had 2 0rganism and patient has loculated effusions plan can stop abx after today can switch to oral augmentin according to renal dosing final plan awaited rest as per he team
--- NOTE | 2018-06-12 15:16 | PN ---
Progress Note, Physician History of Present Illness: Reviewed available records from [facility]; orthopedic op note is present, gen surg op notes are not, despite second request sent specifically for those. I spoke with another surgical appliances salesperson at [facility], and re-requested a call from one of his surgeons, as well as the operative notes and his fluid analysis from paracentesis there. He was able to tell me that cell count there was 54478 WBC and 40K RBC, 78% neutrophils, 12% lymphocytes, and LDH was 5302. The fluid grew Klebsiella and Lactobacillus. He will try to fax the missing op notes. His daughter had obtained multiple CDs from [facility] for us to review; radiology uploaded a number of studies, all of which appear to be from his April visit and nearly all preop. Pt had paracentesis by IR here, which had 68K WBC in turbid sample, but has grown nothing. Fluid analysis shows elevated LDH but mostly exudative picture. He is seen and examined in bed, awake. Denies abdominal pain but does have back pain; he said sitting up in chair was worse than lying in bed. He is eating and having BMs. I explained that he will need to follow up in surgical clinic at [facility] to see his surgeons at some point, though he also states he would never let them operate on him again. - Current Medication List Current Medications: Active Medications Acetaminophen (Tylenol -) 650 mg PO Q4H PRN PRN Reason: HEADACHE Last Admin: 06/12/18 06:09 Dose: 650 mg Amiodarone HCl (Cordarone -) 200 mg PO DAILY [facility] Last Admin: 06/12/18 09:48 Dose: 200 mg Buspirone HCl (Buspar -) 10 mg PO TID [facility] Last Admin: 06/12/18 15:06 Dose: 10 mg Calcium Carbonate (Os-Merlin 500mg -) 500 mg PO TIDAC [facility] Last Admin: 06/12/18 11:27 Dose: 500 mg Citalopram Hydrobromide (Celexa -) 20 mg PO DAILY [facility] Last Admin: 06/12/18 09:48 Dose: 20 mg Collagenase (Santyl -) 1 applic TP DAILY [facility]; Protocol Last Admin: 06/11/18 11:27 Dose: 1 applic Cyanocobalamin (Vitamin B12 -) 100 mcg PO DAILY [facility] Last Admin: 01/21/19 09:48 Dose: 100 mcg Folic Acid (Folic Acid -) 1 mg PO DAILY [facility] Last Admin: 06/12/18 09:48 Dose: 1 mg Heparin Sodium (Porcine) (Heparin -) 1,000 unit IVPUSH PRN PRN PRN Reason: Heparin Heparin Sodium (Porcine) (Heparin -) 5,000 unit IVPUSH PRN PRN PRN Reason: Heparin Piperacillin Sod/Tazobactam (Sod 2.25 gm/ Dextrose) 50 mls @ 100 mls/hr IVPB Q8H-IV [facility]; Protocol Last Admin: 06/12/18 09:53 Dose: 100 mls/hr Heparin Sodium (Porcine) 25, (000 unit/ Sodium Chloride) 500 mls @ 20 mls/hr IV TITR [facility]; Protocol Last Titration: 06/12/18 08:04 Dose: 1,100 unit/hr, 22 mls/hr Fluconazole (Diflucan 200 Mg/D5w Premixed Ivpb -) 100 mls @ 100 mls/hr IVPB Q48H [facility] Last Admin: 06/11/18 16:18 Dose: 100 mls/hr Levothyroxine Sodium (Synthroid -) 125 mcg PO DAILY@0600 [facility] Last Admin: 06/12/18 06:26 Dose: 125 mcg Lidocaine (Lidoderm Patch -) 1 patch TP DAILY [facility] Last Admin: 06/12/18 11:29 Dose: 1 patch Midodrine (Proamatine -) 5 mg PO TID-MID [facility] Last Admin: 06/12/18 15:06 Dose: 5 mg Miscellaneous (Lidoderm Patch Removal) 1 each MC DAILY@2200 [facility] Multivit/Ca Carb/B Cmplx/FA/Prenat (Nephro-Zane -) 1 tablet PO DAILY [facility] Last Admin: 06/12/18 09:47 Dose: 1 tablet Ranitidine HCl (Zantac -) 150 mg PO BID [facility] Last Admin: 06/12/18 11:28 Dose: Not Given - Objective Vital Signs: Vital Signs Temperature 97.3 F L 06/12/18 06:00 Pulse Rate 76 06/12/18 10:00 Respiratory Rate 18 06/12/18 10:00 Blood Pressure 110/60 06/12/18 10:00 O2 Sat by Pulse Oximetry (%) 98 06/12/18 09:00 Constitutional: Yes: Well Nourished, No Distress, Calm Eyes: Yes: Conjunctiva Clear, EOM Intact HENT: Yes: Atraumatic, Normocephalic Gastrointestinal: Yes: Soft, Ascites, Distention. No: Tenderness Musculoskeletal: Yes: Back Pain Extremities: No: Cool, Cyanosis Integumentary: Yes: Incision (healing abd midline). No: Jaundice, Rash Wound/Incision: Yes: Clean/Dry, Well Approximated, Open to air Neurological: Yes: Alert, Oriented Labs: CBC, BMP 06/12/18 06:30 06/12/18 06:30 PTT therapeutic Microbiology 06/07/18 15:10 Gram Stain - Final Paracentesis Body Fluid Culture - Final NO GROWTH OF AEROBIC ORGANISMS AFTER 48 HOURS INCUBATION Anaerobic Culture - Final NO ANAEROBES WERE ISOLATED Problem List - Problems (1) Ascites Assessment/Plan: s/p paracentesis 05/24 at [facility] was to finish abx outpatient but came here on 05/31 pt on abx per ID - changing to oral per Dr. Espinoza no abdominal pain or tenderness, no contrast extravasation on CT, no wbc, no fevers tends to argue against active infectious process no growth on paracentesis fluid, lots of wbc in fluid - may represent resolving peritonitis per [facility], wbc in fluid were more on 05/24 (84.8K vs 68K here) reviewed records from [facility], still do not have surgical operative notes from abdominal operations resident may fax if available in absence of leukocytosis, fever, abdominal pain or tenderness, clinical signs of peritonitis, would not pursue surgical intervention at this time have not been able to reach [facility] surgeon(s) to discuss per daughter, while there in early May, "when he was worse than he is now," they did not want to operate in any case, if surgery were indicated, he would need to return to [facility], or a tertiary center willing to accept him encouraged to f/u with their surgeons anyway, and consider presenting to a tertiary center if he gets sick suddenly after discharge would make sure pt has CD of radiologic studies here when he leaves discussed with Dr. Espinoza, will talk to Dr. Jurado Code(s): R18.8 - OTHER ASCITES Qualifiers: Ascites type: other type Qualified Code(s): R18.8 - Other ascites (2) S/P partial colectomy Code(s): Z90.49 - ACQUIRED ABSENCE OF OTHER SPECIFIED PARTS OF DIGESTIVE TRACT (3) S/P small bowel resection Code(s): Z90.49 - ACQUIRED ABSENCE OF OTHER SPECIFIED PARTS OF DIGESTIVE TRACT (4) Supratherapeutic INR Code(s): R79.1 - ABNORMAL COAGULATION PROFILE (5) CAD (coronary artery disease) Code(s): I25.10 - ATHSCL HEART DISEASE OF [place] CORONARY ARTERY W/O ANG PCTRS Qualifiers: Coronary Disease-Associated Artery/Lesion type: [place] artery [place] vs. transplanted heart: [place] heart Associated angina: without angina Qualified Code(s): I25.10 - Atherosclerotic heart disease of [place] coronary artery without angina pectoris (6) CHF (congestive heart failure) Code(s): I50.9 - HEART FAILURE, UNSPECIFIED Qualifiers: Heart failure type: unspecified Heart failure chronicity: acute on chronic Qualified Code(s): I50.9 - Heart failure, unspecified (7) ESRD (end stage renal disease) Code(s): N18.6 - END STAGE RENAL DISEASE (8) Hypothyroid Code(s): E03.9 - HYPOTHYROIDISM, UNSPECIFIED Qualifiers: Hypothyroidism type: unspecified Qualified Code(s): E03.9 - Hypothyroidism , unspecified
--- NOTE | 2018-06-12 15:36 | PN ---
Progress Note, Physician History of Present Illness: Pt seen and examined at bedside. He is awake and alert. He denies shortness of breath. - Current Medication List Current Medications: Active Medications Acetaminophen (Tylenol -) 650 mg PO Q4H PRN PRN Reason: HEADACHE Last Admin: 06/12/18 06:09 Dose: 650 mg Amiodarone HCl (Cordarone -) 200 mg PO DAILY [facility] Last Admin: 06/12/18 09:48 Dose: 200 mg Buspirone HCl (Buspar -) 10 mg PO TID [facility] Last Admin: 06/12/18 15:06 Dose: 10 mg Calcium Carbonate (Os-Merlin 500mg -) 500 mg PO TIDAC [facility] Last Admin: 06/12/18 11:27 Dose: 500 mg Citalopram Hydrobromide (Celexa -) 20 mg PO DAILY [facility] Last Admin: 06/12/18 09:48 Dose: 20 mg Collagenase (Santyl -) 1 applic TP DAILY [facility]; Protocol Last Admin: 06/11/18 11:27 Dose: 1 applic Cyanocobalamin (Vitamin B12 -) 100 mcg PO DAILY [facility] Last Admin: 06/12/18 09:48 Dose: 100 mcg Folic Acid (Folic Acid -) 1 mg PO DAILY [facility] Last Admin: 06/12/18 09:48 Dose: 1 mg Heparin Sodium (Porcine) (Heparin -) 1,000 unit IVPUSH PRN PRN PRN Reason: Heparin Heparin Sodium (Porcine) (Heparin -) 5,000 unit IVPUSH PRN PRN PRN Reason: Heparin Piperacillin Sod/Tazobactam (Sod 2.25 gm/ Dextrose) 50 mls @ 100 mls/hr IVPB Q8H-IV [facility]; Protocol Last Admin: 06/12/18 09:53 Dose: 100 mls/hr Heparin Sodium (Porcine) 25, (000 unit/ Sodium Chloride) 500 mls @ 20 mls/hr IV TITR [facility]; Protocol Last Titration: 06/12/18 08:04 Dose: 1,100 unit/hr, 22 mls/hr Fluconazole (Diflucan 200 Mg/D5w Premixed Ivpb -) 100 mls @ 100 mls/hr IVPB Q48H [facility] Last Admin: 06/11/18 16:18 Dose: 100 mls/hr Levothyroxine Sodium (Synthroid -) 125 mcg PO DAILY@0600 [facility] Last Admin: 06/12/18 06:26 Dose: 125 mcg Lidocaine (Lidoderm Patch -) 1 patch TP DAILY [facility] Last Admin: 06/12/18 11:29 Dose: 1 patch Midodrine (Proamatine -) 5 mg PO TID-MID [facility] Last Admin: 06/12/18 15:06 Dose: 5 mg Miscellaneous (Lidoderm Patch Removal) 1 each MC DAILY@2200 [facility] Multivit/Ca Carb/B Cmplx/FA/Prenat (Nephro-Zane -) 1 tablet PO DAILY [facility] Last Admin: 06/12/18 09:47 Dose: 1 tablet Ranitidine HCl (Zantac -) 150 mg PO BID [facility] Last Admin: 06/12/18 11:28 Dose: Not Given - Objective Vital Signs: Vital Signs Temperature 97.3 F L 06/12/18 06:00 Pulse Rate 76 06/12/18 10:00 Respiratory Rate 18 06/12/18 10:00 Blood Pressure 110/60 06/12/18 10:00 O2 Sat by Pulse Oximetry (%) 98 06/12/18 09:00 Constitutional: Yes: Calm Eyes: Yes: Conjunctiva Clear HENT: Yes: Atraumatic Neck: Yes: Supple Cardiovascular: Yes: S1, S2 Respiratory: Yes: On Nasal O2 Gastrointestinal: Yes: Soft Genitourinary: Yes: Incontinence Edema: No Neurological: Yes: Oriented Psychiatric: Yes: Oriented Labs: CBC, BMP 06/12/18 06:30 06/12/18 06:30 INR, PTT INR 1.31 (0.83-1.09) H 06/09/18 06:20 Problem List - Problems (1) ESRD (end stage renal disease) Code(s): N18.6 - END STAGE RENAL DISEASE Assessment/Plan Current Medications Generic Name Dose Route Start Last Admin Trade Name Freq PRN Reason Stop Dose Admin Acetaminophen 650 mg 06/10/18 00:02 06/12/18 06:09 Tylenol - PO 650 mg Q4H PRN Administration HEADACHE Amiodarone HCl 200 mg 06/10/18 10:00 06/12/18 09:48 Cordarone - PO 200 mg DAILY [facility] Administration Buspirone HCl 10 mg 06/10/18 06:00 06/12/18 15:06 Buspar - PO 10 mg TID [facility] Administration Calcium Carbonate 500 mg 06/10/18 07:00 06/12/18 11:27 Os-Merlin 500mg - PO 500 mg TIDAC [facility] Administration Citalopram Hydrobromide 20 mg 06/10/18 10:00 06/12/18 09:48 Celexa - PO 20 mg DAILY [facility] Administration Collagenase 1 applic 06/10/18 10:00 06/11/18 11:27 Santyl - TP 1 applic DAILY [facility] Administration Protocol Cyanocobalamin 100 mcg 06/10/18 10:00 06/12/18 09:48 Vitamin B12 - PO 100 mcg DAILY [facility] Administration Folic Acid 1 mg 06/10/18 10:00 06/12/18 09:48 Folic Acid - PO 1 mg DAILY [facility] Administration Heparin Sodium (Porcine) 1,000 unit 06/08/18 23:20 Heparin - IVPUSH PRN PRN Heparin Heparin Sodium (Porcine) 5,000 unit 06/08/18 23:20 Heparin - IVPUSH PRN PRN Heparin Piperacillin Sod/Tazobactam 50 mls @ 100 mls/hr 06/08/18 18:00 06/12/18 09:53 Sod 2.25 gm/ Dextrose IVPB 100 mls/hr Q8H-IV [facility] Administration Protocol Heparin Sodium (Porcine) 25, 500 mls @ 20 mls/hr 06/08/18 23:30 06/12/18 08: 04 000 unit/ Sodium Chloride IV 1,100 unit/hr TITR [facility] 22 mls/hr Titration Protocol 1,000 UNIT/HR Fluconazole 100 mls @ 100 mls/hr 06/09/18 16:00 06/11/18 16:18 Diflucan 200 Mg/D5w Premixed Ivpb - IVPB 100 mls/hr Q48H [facility] Administration Levothyroxine Sodium 125 mcg 06/10/18 06:00 06/12/18 06:26 Synthroid - PO 125 mcg DAILY@0600 [facility] Administration Lidocaine 1 patch 06/12/18 10:00 06/12/18 11:29 Lidoderm Patch - TP 1 patch DAILY [facility] Administration Midodrine 5 mg 06/08/18 10:00 06/12/18 15:06 Proamatine - PO 5 mg TID-MID [facility] Administration Miscellaneous 1 each 06/12/18 22:00 Lidoderm Patch Removal MC DAILY@2200 [facility] Multivit/Ca Carb/B Cmplx/FA/Prenat 1 tablet 06/10/18 10:00 06/12/18 09:47 Nephro-Zane - PO 1 tablet DAILY [facility] Administration Ranitidine HCl 150 mg 06/12/18 10:30 06/12/18 11:28 Zantac - PO Not Given BID [facility] Impression 1. ESRD 2. CAD 3. CABG 4. COPD 5. CHF 6. SBP 7. DVT 8. hx mesinteric ischemia 9. hypothyroidism 10. gout 11. hld 12. pleural effusion 13. anemia Plan - HD tomorrow - epogen for anemia - monitor bp - renal diet - monitor hg - will need fistula once medically stable - will follow Dr Jones
--- NOTE | 2018-06-12 19:24 | PN ---
Progress Note (short form) - Note Progress Note: Patient seen and examined no c/o Last Vital Signs Temp Pulse Resp BP Pulse Ox 97.3 F L 63 18 114/60 98 06/12/18 18:00 06/12/18 18:00 06/12/18 18:00 06/12/18 18:00 06/12/18 09:00 Cor: RSR, No murmurs, No gallops Lungs: Clear to P&A Abd: Soft, Normal bowel sounds, No organomegaly Ext:No significant edema Abnormal Lab Results 06/12/18 06/12/18 06/12/18 06:30 06:30 06:30 RBC 3.31 L Hgb 10.1 L Hct 31.4 L RDW 23.3 H Monocytes % 12.3 H PTT (Actin FS) 56.4 H Creatinine 3.9 H Random Glucose 133 H Calcium 8.1 L Phosphorus 2.0 L Active Medications Generic Name Dose Route Start Last Admin Trade Name Freq PRN Reason Stop Dose Admin Acetaminophen 650 mg 06/10/18 00:02 06/12/18 15:46 Tylenol - PO 650 mg Q4H PRN Administration HEADACHE Albumin Human 12.5 gm 06/13/18 15:45 Albumin Human 25% IVPB Q30M [facility] Amiodarone HCl 200 mg 06/10/18 10:00 06/12/18 09:48 Cordarone - PO 200 mg DAILY [facility] Administration Buspirone HCl 10 mg 06/10/18 06:00 06/12/18 15:06 Buspar - PO 10 mg TID [facility] Administration Calcium Carbonate 500 mg 06/10/18 07:00 06/12/18 11:27 Os-Merlin 500mg - PO 500 mg TIDAC [facility] Administration Citalopram Hydrobromide 20 mg 06/10/18 10:00 06/12/18 09:48 Celexa - PO 20 mg DAILY [facility] Administration Collagenase 1 applic 06/10/18 10:00 06/11/18 11:27 Santyl - TP 1 applic DAILY [facility] Administration Protocol Cyanocobalamin 100 mcg 06/10/18 10:00 06/12/18 09:48 Vitamin B12 - PO 100 mcg DAILY [facility] Administration Epoetin Josemanuel 10,000 unit 06/13/18 15:36 Procrit - IVPUSH 06/13/18 15:37 ONCE ONE Folic Acid 1 mg 06/10/18 10:00 06/12/18 09:48 Folic Acid - PO 1 mg DAILY [facility] Administration Heparin Sodium (Porcine) 1,000 unit 06/08/18 23:20 Heparin - IVPUSH PRN PRN Heparin Heparin Sodium (Porcine) 5,000 unit 06/08/18 23:20 Heparin - IVPUSH PRN PRN Heparin Piperacillin Sod/Tazobactam 50 mls @ 100 mls/hr 06/08/18 18:00 06/12/18 09:53 Sod 2.25 gm/ Dextrose IVPB 100 mls/hr Q8H-IV [facility] Administration Protocol Heparin Sodium (Porcine) 25, 500 mls @ 20 mls/hr 06/08/18 23:30 06/12/18 19: 18 000 unit/ Sodium Chloride IV 1,100 unit/hr TITR [facility] 22 mls/hr Administration Protocol 1,000 UNIT/HR Fluconazole 100 mls @ 100 mls/hr 06/09/18 16:00 06/11/18 16:18 Diflucan 200 Mg/D5w Premixed Ivpb - IVPB 100 mls/hr Q48H [facility] Administration Sodium Chloride 250 mls @ 3,000 mls/hr 06/12/18 15:36 Normal Saline - IV 06/13/18 15:36 PRN PRN Hypotension during Dialysis Levothyroxine Sodium 125 mcg 06/10/18 06:00 06/12/18 06:26 Synthroid - PO 125 mcg DAILY@0600 [facility] Administration Lidocaine 1 patch 06/12/18 10:00 06/12/18 11:29 Lidoderm Patch - TP 1 patch DAILY [facility] Administration Midodrine 5 mg 06/08/18 10:00 06/12/18 15:06 Proamatine - PO 5 mg TID-MID [facility] Administration Miscellaneous 1 each 06/12/18 22:00 Lidoderm Patch Removal MC DAILY@2200 [facility] Multivit/Ca Carb/B Cmplx/FA/Prenat 1 tablet 06/10/18 10:00 06/12/18 09:47 Nephro-Zane - PO 1 tablet DAILY [facility] Administration Ranitidine HCl 150 mg 06/12/18 10:30 06/12/18 15:59 Zantac - PO 150 mg BID [facility] Administration A/P 67 y/o patient with multiple comorbidities including hypothyroid, COPD, CAD, CHF , ESRD on HD, recent fall/fx/admission to [facility] for ORIF , post op. complicated by mesenteric ischemia--s/p rt. hemicoloectomy. also readmitted there for ascites, new onset. Noted to have ? filling defects in SVC around the catheter. ascites--?peritonitis/+ free air ? SBP anemia--multifactorial CKD/chf ? gi losses tristan k iron studies transfuse prbcs as necessary svc filling defects around hd catheter duplex with rt. IJ thrombosis on heparin. To consider eliquis at discharge vasular f/u ongoing a/c as catheter still in place with clot mesenteric ischemia--? h/o--s/p extended rt. hemicolectomhy ? related to low flow state? ? no obvious thrombus ? thombophilia w/u utility
[2018-06-12] MEDS: COLLAGENASE CLOSTRIDIUM HIST. 30 GRAMS TUBE TP SCH (21:58)
[2018-06-12] MEDS: LIDOCAINE PATCH REMOVAL MC SCH (21:59)
[2018-06-13] MEDS ORDERED: DEXTROSE 5%-WATER - 50 ML IVPB ONE ×3 (01:59→16:18)
[2018-06-13] MEDS ORDERED: PIPERACILLIN/TAZOBACTAM 2.25 GM VIAL IVPB ONE ×3 (01:59→16:18)
[2018-06-13] MEDS: HEPARIN - 25,000 UNIT in SODIUM CHLORIDE 495 ML IV SCH ×3 (02:15→23:39)
[2018-06-13] MEDS: PIPERACILLIN/TAZOB 2.25 GM 2.25 GM in DEXTROSE 5%-WATER - 50 ML IVPB SCH ×3 (02:16→18:26)
[2018-06-13] MEDS: ACETAMINOPHEN 325 MG TABLET (FP) PO PRN ×4 (02:17→21:24)
[2018-06-13] MEDS: BANATROL PLUS POWDER PACKET PO SCH ×3 (06:04→21:13)
[2018-06-13] MEDS: CALCIUM (OYSTER SHELL) 500 MG TABLET (FP) PO SCH ×3 (07:00→16:33)
[2018-06-13] MEDS: LEVOTHYROXINE NA 125 MCG TABLET (FP) PO SCH (07:00)
[2018-06-13] MEDS: busPIRone HCL 10 MG TABLET (FP) PO SCH ×3 (07:00→21:24)
[2018-06-13] MEDS: LIDOCAINE 5% TOPICAL PATCH TP SCH (09:14)
[2018-06-13] MEDS: MIDODRINE HCL 2.5 MG TABLET PO SCH ×3 (10:00→18:26)
[2018-06-13] MEDS: RANITIDINE HCL 150 MG TABLET (FP) PO SCH ×3 (10:00→21:24)
[2018-06-13 10:13] LABS: BASO % 1.5 % (0-2.0); EOS % 2.5 % (0-4.5); HEMATOCRIT 32.6 % (35.4-49); HEMOGLOBIN 10.2 GM/dL (11.7-16.9); LYMPH % 18.8 % (8-40); MCH 30.3 pg (25.7-33.7); MCHC 31.4 g/dl (32.0-35.9); MEAN CELL VOLUME 96.7 fl (80-96); MEAN PLT VOLUME 8.2 fl (7.5-11.1); NEUT % 66.2 % (42.8-82.8); PLATELET COUNT 160 K/MM3 (134-434); RBC 3.37 M/mm3 (4.00-5.60); RDW 24.6 % (11.9-15.9); WHITE BLOOD COUNT 4.8 K/mm3 (4.0-10.0)
[2018-06-13] MEDS ORDERED: SODIUM CHLORIDE 250 ML IV PRN (10:47)
[2018-06-13] MEDS: ALBUMIN HUMAN 25% 12.5 GM/50 ML VIAL IVPB SCH ×4 (11:00→12:30)
[2018-06-13] MEDS ORDERED: EPOETIN ALFA 10,000 UNIT/1 ML VIAL IVPUSH ONE (11:00)
[2018-06-13 11:28] LABS: ALBUMIN 2.3 g/dl (3.4-5.0); ALK PHOS 113 U/L (45-117); ANION GAP 13 MMOL/L (8-16); BILIRUBIN,TOTAL 0.6 mg/dL (0.2-1); BLOOD UREA NITROGEN 26 mg/dL (7-18); CALCIUM 8.3 mg/dL (8.5-10.1); CHLORIDE 105 mmol/L (98-107); CO2 23 mmol/L (21-32); CREATININE 4.7 mg/dL (0.55-1.3); GLUCOSE,RANDOM 113 mg/dL (74-106); SGOT/AST 13 U/L (15-37); SGPT/ALT 11 U/L (13-61); SODIUM 141 mmol/L (136-145); TOT PROT 4.9 g/dl (6.4-8.2)
--- NOTE | 2018-06-13 12:19 | PN ---
Teaching Attending Note Name of Resident: Mindy Floyd ATTENDING PHYSICIAN STATEMENT I saw and evaluated the patient. I reviewed the resident's note and discussed the case with the resident. I agree with the resident's findings and plan as documented with exceptions below SUBJECTIVE: Patient seen and examined. Back pain better, but had recurrence last night. NO nausea, vomiting or abdominal pain. Feels better otherwise, tolerating diet. OBJECTIVE: Vital Signs Period Temp Pulse Resp BP Sys/Emery Pulse Ox Last 24 Hr 97.3 F-98.0 F 61-87 18-20 94-130/55-67 96 Intake & Output 06/10/18 06/11/18 06/12/18 06/13/18 23:59 23:59 23:59 23:59 Intake Total 6863 612 6630 314 Balance 5438 981 0079 314 Weight 189 lb 12.8 oz General: lying in bed in no acute distress Chest: few basilar rales Abdomen:Soft, unchanged distension, healing midline vertical scar, NT throughout , positive bowel sounds Extremities: no edema, LE SLR neg, power 5/5 Musculoskeletal: no spinal tenderness noted Home Medications Medication Instructions Recorded Allopurinol [Zyloprim -] 1 tab PO DAILY 03/17/18 Amiodarone HCl 1 tab PO DAILY 03/17/18 Aspirin [ASA -] 81 mg PO DAILY 03/17/18 Carvedilol 1 tab PO BID 03/17/18 Levothyroxine [Synthroid -] 1 tab PO DAILY 03/17/18 Pravastatin Sodium [Pravachol -] 1 tab PO DAILY 03/17/18 Zolpidem Tartrate [Ambien Cr] 1 tab PO HS 03/17/18 Acetaminophen [Tylenol] 650 mg PO DAILY PRN 05/31/18 Apixaban [Eliquis -] 2.5 mg PO BID 05/31/18 Calcium Carbonate [Calcium] 500 mg PO AC 05/31/18 Citalopram Hydrobromide 20 mg PO DAILY 05/31/18 [Citalopram HBr] Cyanocobalamin [Vitamin B12 -] 100 mcg PO DAILY 05/31/18 Folic Acid - 1 mg PO DAILY 05/31/18 Melatonin/Pyridoxine HCl (B6) 1 each PO HS 05/31/18 [Melatonin 10 mg Tablet] Midodrine HCl [Proamatine -] 5 mg PO TID 05/31/18 Vit B Comp No.3/Folic/C/Biotin 1 each PO DAILY 05/31/18 [Krystina-Zane Rx Tablet] Active Medications Acetaminophen (Tylenol -) 650 mg PO Q4H PRN PRN Reason: HEADACHE Last Admin: 06/13/18 06:31 Dose: 650 mg Albumin Human (Albumin Human 25%) 12.5 gm IVPB Q30M [facility] Amiodarone HCl (Cordarone -) 200 mg PO DAILY [facility] Last Admin: 06/12/18 09:48 Dose: 200 mg Buspirone HCl (Buspar -) 10 mg PO TID [facility] Last Admin: 06/12/18 21:59 Dose: 10 mg Calcium Carbonate (Os-Merlin 500mg -) 500 mg PO TIDAC [facility] Last Admin: 06/12/18 19:52 Dose: 500 mg Citalopram Hydrobromide (Celexa -) 20 mg PO DAILY [facility] Last Admin: 06/12/18 09:48 Dose: 20 mg Collagenase (Santyl -) 1 applic TP DAILY [facility]; Protocol Last Admin: 06/12/18 21:58 Dose: 1 applic Cyanocobalamin (Vitamin B12 -) 100 mcg PO DAILY [facility] Last Admin: 06/12/18 09:48 Dose: 100 mcg Folic Acid (Folic Acid -) 1 mg PO DAILY [facility] Last Admin: 06/12/18 09:48 Dose: 1 mg Heparin Sodium (Porcine) (Heparin -) 1,000 unit IVPUSH PRN PRN PRN Reason: Heparin Heparin Sodium (Porcine) (Heparin -) 5,000 unit IVPUSH PRN PRN PRN Reason: Heparin Piperacillin Sod/Tazobactam (Sod 2.25 gm/ Dextrose) 50 mls @ 100 mls/hr IVPB Q8H-IV [facility]; Protocol Last Admin: 06/13/18 02:16 Dose: 100 mls/hr Heparin Sodium (Porcine) 25, (000 unit/ Sodium Chloride) 500 mls @ 20 mls/hr IV TITR [facility]; Protocol Last Admin: 06/13/18 02:15 Dose: Not Given Fluconazole (Diflucan 200 Mg/D5w Premixed Ivpb -) 100 mls @ 100 mls/hr IVPB Q48H [facility] Last Admin: 06/11/18 16:18 Dose: 100 mls/hr Levothyroxine Sodium (Synthroid -) 125 mcg PO DAILY@0600 [facility] Last Admin: 06/12/18 06:26 Dose: 125 mcg Lidocaine (Lidoderm Patch -) 1 patch TP DAILY [facility] Last Admin: 06/13/18 09:14 Dose: 1 patch Midodrine (Proamatine -) 5 mg PO TID-MID [facility] Last Admin: 06/12/18 19:52 Dose: 5 mg Miscellaneous (Lidoderm Patch Removal) 1 each MC DAILY@2200 [facility] Last Admin: 06/12/18 21:59 Dose: 1 each Multivit/Ca Carb/B Cmplx/FA/Prenat (Nephro-Zane -) 1 tablet PO DAILY [facility] Last Admin: 06/12/18 09:47 Dose: 1 tablet Ranitidine HCl (Zantac -) 150 mg PO BID [facility] Last Admin: 06/12/18 21:43 Dose: Not Given Laboratory Results - last 24 hr 06/13/18 06/13/18 06/13/18 09:35 09:35 09:35 WBC 4.8 RBC 3.37 L Hgb 10.2 L Hct 32.6 L MCV 96.7 H MCH 30.3 MCHC 31.4 L RDW 24.6 H Plt Count 160 MPV 8.2 Absolute Neuts (auto) 3.2 Neutrophils % 66.2 Lymphocytes % 18.8 Monocytes % 11.0 H Eosinophils % 2.5 Basophils % 1.5 Nucleated RBC % 0 PTT (Actin FS) 68.0 H Sodium 141 Potassium 4.0 Chloride 105 Carbon Dioxide 23 Anion Gap 13 BUN 26 H Creatinine 4.7 H Creat Clearance w eGFR 12.46 Random Glucose 113 H Calcium 8.3 L Total Bilirubin 0.6 AST 13 L ALT 11 L Alkaline Phosphatase 113 Total Protein 4.9 L Albumin 2.3 L Microbiology 06/07/18 15:10 Paracentesis AFB Smear Concentration - Preliminary 06/07/18 15:10 Paracentesis Mycobacterial Culture - Preliminary 06/07/18 15:10 Paracentesis Gram Stain - Final 06/07/18 15:10 Paracentesis Body Fluid Culture - Final NO GROWTH OF AEROBIC ORGANISMS AFTER 48 HOURS INCUBATION 06/07/18 15:10 Paracentesis Anaerobic Culture - Final NO ANAEROBES WERE ISOLATED 06/08/18 09:20 Stool Salmonella/Shigella Culture - Final NO GROWTH OF SALMONELLA OR SHIGELLA SPECIES OBTAINED 06/08/18 09:20 Stool Campylobacter Culture - Final NO GROWTH OF CAMPYLOBACTER SPECIES OBTAINED 06/08/18 09:20 Stool Yersinia Culture - Final NO GROWTH OF YERSINIA SPECIES OBTAINED 06/08/18 09:20 Stool Vibrio Culture - Final NO GROWTH OF VIBRIO SPECIES OBTAINED 06/08/18 09:20 Stool Escherichia coli 0157 Culture - Final NO GROWTH OF E COLI 0157 OBTAINED 06/08/18 01:31 Stool Gram Stain - Final 06/08/18 01:31 Stool Clostridium difficile Antigen (FLORINA) - Final 06/08/18 01:31 Stool Clostridium difficile Toxin Assay - Final 06/07/18 15:10 Paracentesis RODRIGUEZ Preparation - Preliminary 06/07/18 15:10 Paracentesis Fungal Culture - Preliminary 06/01/18 13:40 Blood - Peripheral Venous Blood Culture - Final NO GROWTH AFTER 5 DAYS INCUBATION 06/01/18 13:50 Blood - Peripheral Venous Blood Culture - Final NO GROWTH AFTER 5 DAYS INCUBATION ASSESSMENT AND PLAN: 67 yom with PMhx of CAD s/p CABG 2005, chronic systolic HF s/p ICD (Applits), COPD on chronic O2 2-3L, ESRD on HD, hypotension on midodrine, HTN , HLD, admitted to [facility] for hip fracture s/p ORIF, course complicated by mesentric ischemia, s/p right hemicolectomy/jejunal/ileal resection, readmitted on 05/23/2018 with shortness of breath/nausea with HD, found with ascitis s/p paracentesis wiht 700 seropurulent fluid, reported cultures with Kleb Oxytoca, s /p ceftriaxone, d/dena on ?Cipro/flagyl x 7 days readmitted with chest pain/ dyspnea/anxiety during HD, found with ascitis, elevated INR . 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 SVC thrombus -CAD s/p CABG -ICD s/p reported h/o shocks on Amiodarone -COPD on 2-3 L home oxygen -Hypotension on Midodrine (off coreg/ACEi) -Hypothyroidism -Hypoalbuminemia -Anemia, suspect multifactorial s/p 1 unit PRBC 06/06 -Low back pain, musculoskeletal Plan: Abdominal exam benign currently. Surgery/GI/ID input noted. Discussed with Dr. Crum, ascitic fluid at [facility] reportedly with >28504 WBC. Here with >60010 WBC. Cultures neg so far, Continue Zosyn per ID. Discussed with Dr. Crum, in process with discussion with Surgeon at [facility] to retrieve information and co-ordinate further care, awaiting call back as discussed Patient currently stable, afebrile, with normal WBC and non concerning abdominal exam. GI input appreciated. Stool studies neg so far. FOBT neg. s/p 1unit PRBC, appropriate response. Neck US with Right IJ thrombus. Heparin drip.CTA chest noted. Transition to eliquis pending surgery/GI input for possible intervention. Hematology input appreciated. Monitor h/h closely. HD per renal, ongoing fluid removal. Albumin/epoeitin per renal Cardiology input noted. Continue amiodarone (prior h/o ICD shocks x 2). OFf coreg/ACEi for now given hypotension. Continue midodrine. TSH noted, Free T4 noted, Endocrine input appreciated, levothyroxine dose increased. OFfered to do lumbar xray, patient declines "no its the bed". Lidocaine patch, Add low dose flexeril prn and monitor. PT eval. DVTPPX heparin drip as above Incentive spirometry Plan for D/c to SNF vs transfer for further care based on clinical course. Plan discussed with patient and nursing.
[2018-06-13 12:46] LABS: ANISOCYTOSIS 2+; MACROCYTOSIS 0; PLATELET ESTIMATE NORMAL
--- NOTE | 2018-06-13 12:54 | PN ---
Progress Note, Physician History of Present Illness: clinically stable no complaints back pain - Current Medication List Current Medications: Active Medications Acetaminophen (Tylenol -) 650 mg PO Q4H PRN PRN Reason: HEADACHE Last Admin: 06/13/18 06:31 Dose: 650 mg Albumin Human (Albumin Human 25%) 12.5 gm IVPB Q30M [facility] Last Admin: 06/13/18 12:30 Dose: 12.5 gm Amiodarone HCl (Cordarone -) 200 mg PO DAILY [facility] Last Admin: 06/12/18 09:48 Dose: 200 mg Buspirone HCl (Buspar -) 10 mg PO TID [facility] Last Admin: 06/12/18 21:59 Dose: 10 mg Calcium Carbonate (Os-Merlin 500mg -) 500 mg PO TIDAC [facility] Last Admin: 06/12/18 19:52 Dose: 500 mg Citalopram Hydrobromide (Celexa -) 20 mg PO DAILY [facility] Last Admin: 06/12/18 09:48 Dose: 20 mg Collagenase (Santyl -) 1 applic TP DAILY [facility]; Protocol Last Admin: 06/12/18 21:58 Dose: 1 applic Cyanocobalamin (Vitamin B12 -) 100 mcg PO DAILY [facility] Last Admin: 06/12/18 09:48 Dose: 100 mcg Cyclobenzaprine HCl (Cyclobenzaprine Hcl) 2.5 mg PO Q12H PRN PRN Reason: MUSCLE SPASMS Folic Acid (Folic Acid -) 1 mg PO DAILY [facility] Last Admin: 06/12/18 09:48 Dose: 1 mg Heparin Sodium (Porcine) (Heparin -) 1,000 unit IVPUSH PRN PRN PRN Reason: Heparin Heparin Sodium (Porcine) (Heparin -) 5,000 unit IVPUSH PRN PRN PRN Reason: Heparin Piperacillin Sod/Tazobactam (Sod 2.25 gm/ Dextrose) 50 mls @ 100 mls/hr IVPB Q8H-IV [facility]; Protocol Last Admin: 06/13/18 02:16 Dose: 100 mls/hr Heparin Sodium (Porcine) 25, (000 unit/ Sodium Chloride) 500 mls @ 20 mls/hr IV TITR [facility]; Protocol Last Admin: 06/13/18 02:15 Dose: Not Given Fluconazole (Diflucan 200 Mg/D5w Premixed Ivpb -) 100 mls @ 100 mls/hr IVPB Q48H [facility] Last Admin: 06/11/18 16:18 Dose: 100 mls/hr Levothyroxine Sodium (Synthroid -) 125 mcg PO DAILY@0600 [facility] Last Admin: 06/12/18 06:26 Dose: 125 mcg Lidocaine (Lidoderm Patch -) 1 patch TP DAILY [facility] Last Admin: 06/13/18 09:14 Dose: 1 patch Midodrine (Proamatine -) 5 mg PO TID-MID [facility] Last Admin: 06/12/18 19:52 Dose: 5 mg Miscellaneous (Lidoderm Patch Removal) 1 each MC DAILY@2200 [facility] Last Admin: 06/12/18 21:59 Dose: 1 each Multivit/Ca Carb/B Cmplx/FA/Prenat (Nephro-Znae -) 1 tablet PO DAILY [facility] Last Admin: 06/12/18 09:47 Dose: 1 tablet Ranitidine HCl (Zantac -) 150 mg PO BID [facility] Last Admin: 06/12/18 21:43 Dose: Not Given - Objective Vital Signs: Vital Signs Temperature 97.5 F L 06/13/18 09:25 Pulse Rate 64 06/13/18 11:00 Respiratory Rate 18 06/13/18 11:00 Blood Pressure 109/61 06/13/18 11:00 O2 Sat by Pulse Oximetry (%) 96 06/12/18 21:00 Constitutional: Yes: No Distress, Calm Cardiovascular: Yes: S1, S2 Respiratory: Yes: Regular, CTA Bilaterally Gastrointestinal: Yes: Normal Bowel Sounds, Soft, Ascites Musculoskeletal: Yes: WNL Extremities: Yes: Other Wound/Incision: Yes: Dressing Dry and Intact Neurological: Yes: Alert, Oriented Labs: CBC, BMP 06/13/18 09:35 06/13/18 09:35 INR, PTT INR 1.31 (0.83-1.09) H 06/09/18 06:20 Assessment/Plan ASSESSMENT AND PLAN: (1) Hypotension Code(s): I95.9 - HYPOTENSION, UNSPECIFIED (2) ESRD (end stage renal disease) Code(s): N18.6 - END STAGE RENAL DISEASE (3) Ascites Code(s): R18.8 - OTHER ASCITES (4) Supratherapeutic INR Code(s): R79.1 - ABNORMAL COAGULATION PROFILE (5) CAD (coronary artery disease) Code(s): I25.10 - ATHSCL HEART DISEASE OF [place] CORONARY ARTERY W/O ANG PCTRS (6) CHF (congestive heart failure) Code(s): I50.9 - HEART FAILURE, UNSPECIFIED Qualifiers: Heart failure chronicity: acute on chronic (7) Hypothyroid Code(s): E03.9 - HYPOTHYROIDISM, UNSPECIFIED (8) SBP (secondary bacterial peritonitis) Code(s): K65.2 - SPONTANEOUS BACTERIAL PERITONITIS (9) Anxiety -consult psychiatry 10 b/l heel ulcer as far as i think i am worried is there any leak from the gi tract a small leak as the collection poly microbial from the last time as far as i know had 2 0rganism and patient has loculated effusions plan continue abx for now will need a plan surgery on case should transfer the patient final plan needs to be made
--- NOTE | 2018-06-13 13:08 | PN ---
Progress Note, Physician History of Present Illness: Patient seen and examined at bedside. c/o intractable back pain which has been chronic but worsening. Received tylenol 30 mins ago without any relief. had vein mapping. - Current Medication List Current Medications: Active Medications Acetaminophen (Tylenol -) 650 mg PO Q4H PRN PRN Reason: HEADACHE Last Admin: 06/13/18 06:31 Dose: 650 mg Albumin Human (Albumin Human 25%) 12.5 gm IVPB Q30M [facility] Last Admin: 06/13/18 12:30 Dose: 12.5 gm Amiodarone HCl (Cordarone -) 200 mg PO DAILY [facility] Last Admin: 06/12/18 09:48 Dose: 200 mg Buspirone HCl (Buspar -) 10 mg PO TID [facility] Last Admin: 06/12/18 21:59 Dose: 10 mg Calcium Carbonate (Os-Merlin 500mg -) 500 mg PO TIDAC [facility] Last Admin: 06/12/18 19:52 Dose: 500 mg Citalopram Hydrobromide (Celexa -) 20 mg PO DAILY [facility] Last Admin: 06/12/18 09:48 Dose: 20 mg Collagenase (Santyl -) 1 applic TP DAILY [facility]; Protocol Last Admin: 06/12/18 21:58 Dose: 1 applic Cyanocobalamin (Vitamin B12 -) 100 mcg PO DAILY [facility] Last Admin: 06/12/18 09:48 Dose: 100 mcg Cyclobenzaprine HCl (Cyclobenzaprine Hcl) 2.5 mg PO Q12H PRN PRN Reason: MUSCLE SPASMS Folic Acid (Folic Acid -) 1 mg PO DAILY [facility] Last Admin: 06/12/18 09:48 Dose: 1 mg Heparin Sodium (Porcine) (Heparin -) 1,000 unit IVPUSH PRN PRN PRN Reason: Heparin Heparin Sodium (Porcine) (Heparin -) 5,000 unit IVPUSH PRN PRN PRN Reason: Heparin Piperacillin Sod/Tazobactam (Sod 2.25 gm/ Dextrose) 50 mls @ 100 mls/hr IVPB Q8H-IV [facility]; Protocol Last Admin: 06/13/18 02:16 Dose: 100 mls/hr Heparin Sodium (Porcine) 25, (000 unit/ Sodium Chloride) 500 mls @ 20 mls/hr IV TITR [facility]; Protocol Last Admin: 06/13/18 02:15 Dose: Not Given Fluconazole (Diflucan 200 Mg/D5w Premixed Ivpb -) 100 mls @ 100 mls/hr IVPB Q48H [facility] Last Admin: 06/11/18 16:18 Dose: 100 mls/hr Levothyroxine Sodium (Synthroid -) 125 mcg PO DAILY@0600 [facility] Last Admin: 06/12/18 06:26 Dose: 125 mcg Lidocaine (Lidoderm Patch -) 1 patch TP DAILY [facility] Last Admin: 06/13/18 09:14 Dose: 1 patch Midodrine (Proamatine -) 5 mg PO TID-MID [facility] Last Admin: 06/12/18 19:52 Dose: 5 mg Miscellaneous (Lidoderm Patch Removal) 1 each MC DAILY@2200 [facility] Last Admin: 06/12/18 21:59 Dose: 1 each Multivit/Ca Carb/B Cmplx/FA/Prenat (Nephro-Zane -) 1 tablet PO DAILY [facility] Last Admin: 06/12/18 09:47 Dose: 1 tablet Ranitidine HCl (Zantac -) 150 mg PO BID [facility] Last Admin: 06/12/18 21:43 Dose: Not Given - Objective Vital Signs: Vital Signs Temperature 97.5 F L 06/13/18 09:25 Pulse Rate 73 06/13/18 12:58 Respiratory Rate 18 06/13/18 12:58 Blood Pressure 111/59 L 06/13/18 12:58 O2 Sat by Pulse Oximetry (%) 96 06/12/18 21:00 Constitutional: Yes: No Distress, Calm Eyes: Yes: Conjunctiva Clear Cardiovascular: Yes: Regular Rate and Rhythm, S1, S2 Respiratory: Yes: CTA Bilaterally Gastrointestinal: Yes: Normal Bowel Sounds, Soft, Other (perm cath upper R chest ) Musculoskeletal: Yes: Back Pain Edema: No Neurological: Yes: Alert, Oriented Labs: CBC, BMP 06/13/18 09:35 06/13/18 09:35 INR, PTT INR 1.31 (0.83-1.09) H 06/09/18 06:20 Impression/Plan Impression/Plan: 67 yo m h.o cad s/p cabg, sCHF w. ICD, COPD on home O2, ESRD on HD, mesenteric ischemia s/p hemicolectomy admitted to the hospital for sob, chest pain now being evaluated for mesenteric ischemia. Impression Mesenteria ischemia ascite w/ SBP supratherapeutic INR Plan RIJ thrombus likely due to perm cath access on heparin gtt, will start NOAC on discharge and cont. AC till cathether is removed Joe Argueta PGY3 Visit type - Emergency Visit Emergency Visit: No - New Patient This patient is new to me today: No - Critical Care Critical Care patient: No - Discharge Referral Referred to [facility] No
--- NOTE | 2018-06-13 13:17 | PN ---
Physical Exam: SUBJECTIVE: Patient seen and examined by me at bedside. No acute events overnight Patient still complaints of back pain. Reports Lidocaine patch worked yesterday for several hours but no relief of symptoms today. Will start Flexeril Patient otherwise denies any fever, chills, nausea, vomiting, abdominal pain, chest pain, palpitations, shortness of breath, urinary or bowel symptoms. OBJECTIVE: Vital Signs Period Temp Pulse Resp BP Sys/Emery Pulse Ox Last 24 Hr 97.3 F-98.0 F 61-87 18-20 94-130/55-67 96 GENERAL: The patient is awake, alert, frail looking and fully oriented, in no acute distress. EYES: Sclera anicteric, conjunctiva clear. No ptosis. ENT: Moist mucous membranes. LUNGS: bibasilar fine rales with no wheezing or no accessory muscle use. HEART: Regular rate and rhythm, S1, S2 with (+) JOSIE ABDOMEN: Soft, nontender, nondistended, normoactive bowel sounds (+) vertical incisional scar C/D/I EXTREMITIES: No edema. (+) Stage I ulcer of left heel and second toe SKIN: Warm, dry, normal turgor, no rashes or lesions noted Laboratory Results 06/13/18 09:35 06/13/18 09:35 Active Medications Generic Name Dose Route Start Last Admin Trade Name Freq PRN Reason Stop Dose Admin Acetaminophen 650 mg 06/10/18 00:02 06/13/18 06:31 Tylenol - PO 650 mg Q4H PRN Administration HEADACHE Albumin Human 12.5 gm 06/13/18 11:00 06/13/18 12:30 Albumin Human 25% IVPB 12.5 gm Q30M JULIAN Administration Amiodarone HCl 200 mg 06/10/18 10:00 06/12/18 09:48 Cordarone - PO 200 mg DAILY JULIAN Administration Buspirone HCl 10 mg 06/10/18 06:00 06/12/18 21:59 Buspar - PO 10 mg TID JULIAN Administration Calcium Carbonate 500 mg 06/10/18 07:00 06/12/18 19:52 Os-Merlin 500mg - PO 500 mg TIDAC JULIAN Administration Citalopram Hydrobromide 20 mg 06/10/18 10:00 06/12/18 09:48 Celexa - PO 20 mg DAILY JULIAN Administration Collagenase 1 applic 06/10/18 10:00 06/12/18 21:58 Santyl - TP 1 applic DAILY JULIAN Administration Protocol Cyanocobalamin 100 mcg 06/10/18 10:00 06/12/18 09:48 Vitamin B12 - PO 100 mcg DAILY JULIAN Administration Cyclobenzaprine HCl 2.5 mg 06/13/18 12:19 Cyclobenzaprine Hcl PO Q12H PRN MUSCLE SPASMS Folic Acid 1 mg 06/10/18 10:00 06/12/18 09:48 Folic Acid - PO 1 mg DAILY JULIAN Administration Heparin Sodium (Porcine) 1,000 unit 06/08/18 23:20 Heparin - IVPUSH PRN PRN Heparin Heparin Sodium (Porcine) 5,000 unit 06/08/18 23:20 Heparin - IVPUSH PRN PRN Heparin Piperacillin Sod/Tazobactam 50 mls @ 100 mls/hr 06/08/18 18:00 06/13/18 02:16 Sod 2.25 gm/ Dextrose IVPB 100 mls/hr Q8H-IV JULIAN Administration Protocol Heparin Sodium (Porcine) 25, 500 mls @ 20 mls/hr 06/08/18 23:30 06/13/18 02: 15 000 unit/ Sodium Chloride IV Not Given TITR JULIAN Protocol 1,000 UNIT/HR Fluconazole 100 mls @ 100 mls/hr 06/09/18 16:00 06/11/18 16:18 Diflucan 200 Mg/D5w Premixed Ivpb - IVPB 100 mls/hr Q48H JULIAN Administration Levothyroxine Sodium 125 mcg 06/10/18 06:00 06/12/18 06:26 Synthroid - PO 125 mcg DAILY@0600 JULIAN Administration Lidocaine 1 patch 06/12/18 10:00 06/13/18 09:14 Lidoderm Patch - TP 1 patch DAILY JULIAN Administration Midodrine 5 mg 06/08/18 10:00 06/12/18 19:52 Proamatine - PO 5 mg TID-MID JULIAN Administration Miscellaneous 1 each 06/12/18 22:00 06/12/18 21:59 Lidoderm Patch Removal MC 1 each DAILY@2200 JULIAN Administration Multivit/Ca Carb/B Cmplx/FA/Prenat 1 tablet 06/10/18 10:00 06/12/18 09:47 Nephro-Zane - PO 1 tablet DAILY JULIAN Administration Ranitidine HCl 150 mg 06/12/18 10:30 06/12/18 21:43 Zantac - PO Not Given BID [facility] ASSESSMENT/PLAN: Patient is a 67 year old male with a PMHx of CAD s/p CABG, Defibrillator ( [employer]), COPD (on 2-3L Home O2), ESRD (On HD // via Right Tunnel Cath), CHF presents from [facility]) with Chest pain. #Loculated Ascites -Paracentesis done with >82812 WBC predominately neutrophils. Fluid analysis revealed SAAG <1.1, with high protein and LDH, Consistent with exudative fluid. This may be from possible obstruction, infection, peritonitis -Continue IV Zosyn 2.25gm Q8H day#5 -Surgery following and will need to call surgeon from [facility], however patient refuses to go to [facility]. Patient clinically stable with no fevers , leukocytosis and tolerating PO #Mesentric ischemia s/p right hemicolectomy -Patient had procedures done at [facility] but refuses to go back there. Would like to have different opinions at this hospital and further management. Spoke to surgeon, Dr. Menon for second opinion but is not currently restoration ecologist and unable to see patient. Recommended patient to be transferred to [facility] where the procedure happened. -Will attempt to have patient transferred back to [facility] once Dr. Crum speaks to surgeon there #Supratherapeutic INR- Resolved -Continue Heparin Drip for thrombus -Continue to monitor #Back Pain -Lidocaine patch for pain -Flexeril 2.5mg BID PRN #Diarrhea -Possibly infectious vs mechanical. C.Diff negative. Possibly from recent colectomy -Continue to monitor #Filling defect SVC/Left brachiocephalic -Shown on CTA chest report from 05/23/2018 -UE duplex shows right IJ thrombus -Continue Heparin drip and then transition to Eliquis outpatient #Hypotension -Continue Midodrine -Patient with low BP but has improved -Continue to monitor #Chest pain -Likely due to anxiety. 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 -Sodium controlled diet #Prophylaxis -Heparin drip for DVT. -No GI required #Disposition -Full code -Pending call back from surgeon sondra Ceja [id number] Visit type - Emergency Visit Emergency Visit: Yes ED Registration Date: 05/31/18 Care time: The patient presented to the Emergency Department on the above date and was hospitalized for further evaluation of their emergent condition. - New Patient This patient is new to me today: No - Critical Care Critical Care patient: No
[2018-06-13] MEDS: CYCLOBENZAPRINE HCL 5 MG TABLET PO PRN (13:39)
[2018-06-13] MEDS: AMIODARONE HCL 200 MG TABLET (FP) PO SCH (14:30)
[2018-06-13] MEDS: VITAMIN B COMP W-C 1 EA TABLET PO SCH (14:30)
[2018-06-13] MEDS: CYANOCOBALAMIN (VITAMIN B-12) 100 MCG TABLET PO SCH (14:31)
[2018-06-13] MEDS: CITALOPRAM HYDROBROMIDE 20 MG TABLET (FP) PO SCH (14:31)
[2018-06-13] MEDS: FOLIC ACID 1 MG TABLET (FP) PO SCH (14:31)
[2018-06-13] MEDS: FLUCONAZOLE 200 MG/D5W 100 ML IVPB SCH (15:02)
--- NOTE | 2018-06-13 16:28 | PN ---
Progress Note, Physician History of Present Illness: Pt seen and examined at bedside. He is awake and alert. He tolerated HD. He denies shortness of breath. - Current Medication List Current Medications: Active Medications Acetaminophen (Tylenol -) 650 mg PO Q4H PRN PRN Reason: HEADACHE Last Admin: 06/13/18 06:31 Dose: 650 mg Albumin Human (Albumin Human 25%) 12.5 gm IVPB Q30M JULIAN Last Admin: 06/13/18 12:30 Dose: 12.5 gm Amiodarone HCl (Cordarone -) 200 mg PO DAILY [facility] Last Admin: 06/13/18 14:30 Dose: 200 mg Buspirone HCl (Buspar -) 10 mg PO TID [facility] Last Admin: 06/13/18 14:32 Dose: 10 mg Calcium Carbonate (Os-Merlin 500mg -) 500 mg PO TIDAC [facility] Last Admin: 06/13/18 11:00 Dose: Not Given Citalopram Hydrobromide (Celexa -) 20 mg PO DAILY [facility] Last Admin: 06/13/18 14:31 Dose: 20 mg Collagenase (Santyl -) 1 applic TP DAILY [facility]; Protocol Last Admin: 06/12/18 21:58 Dose: 1 applic Cyanocobalamin (Vitamin B12 -) 100 mcg PO DAILY [facility] Last Admin: 06/13/18 14:31 Dose: 100 mcg Cyclobenzaprine HCl (Cyclobenzaprine Hcl) 2.5 mg PO Q12H PRN PRN Reason: MUSCLE SPASMS Last Admin: 06/13/18 13:39 Dose: 2.5 mg Folic Acid (Folic Acid -) 1 mg PO DAILY [facility] Last Admin: 06/13/18 14:31 Dose: 1 mg Heparin Sodium (Porcine) (Heparin -) 1,000 unit IVPUSH PRN PRN PRN Reason: Heparin Heparin Sodium (Porcine) (Heparin -) 5,000 unit IVPUSH PRN PRN PRN Reason: Heparin Piperacillin Sod/Tazobactam (Sod 2.25 gm/ Dextrose) 50 mls @ 100 mls/hr IVPB Q8H-IV JULIAN; Protocol Last Admin: 06/13/18 13:59 Dose: 100 mls/hr Heparin Sodium (Porcine) 25, (000 unit/ Sodium Chloride) 500 mls @ 20 mls/hr IV TITR JULIAN; Protocol Last Titration: 06/13/18 13:42 Dose: 1,100 unit/hr, 22 mls/hr Fluconazole (Diflucan 200 Mg/D5w Premixed Ivpb -) 100 mls @ 100 mls/hr IVPB Q48H [facility] Last Admin: 06/13/18 15:02 Dose: 100 mls/hr Levothyroxine Sodium (Synthroid -) 125 mcg PO DAILY@0600 [facility] Last Admin: 06/13/18 07:00 Dose: Not Given Lidocaine (Lidoderm Patch -) 1 patch TP DAILY [facility] Last Admin: 06/13/18 09:14 Dose: 1 patch Midodrine (Proamatine -) 5 mg PO TID-MID [facility] Last Admin: 06/13/18 14:33 Dose: 5 mg Miscellaneous (Lidoderm Patch Removal) 1 each MC DAILY@2200 [facility] Last Admin: 06/12/18 21:59 Dose: 1 each Multivit/Ca Carb/B Cmplx/FA/Prenat (Nephro-Zane -) 1 tablet PO DAILY [facility] Last Admin: 06/13/18 14:30 Dose: 1 tablet Ranitidine HCl (Zantac -) 150 mg PO BID [facility] Last Admin: 06/13/18 14:58 Dose: 150 mg - Objective Vital Signs: Vital Signs Temperature 97.4 F L 06/13/18 14:33 Pulse Rate 70 06/13/18 14:33 Respiratory Rate 22 H 06/13/18 14:33 Blood Pressure 100/60 06/13/18 14:33 O2 Sat by Pulse Oximetry (%) 96 06/12/18 21:00 Constitutional: Yes: Calm Eyes: Yes: Conjunctiva Clear HENT: Yes: Atraumatic Cardiovascular: Yes: S1, S2 Respiratory: Yes: On Nasal O2 Gastrointestinal: Yes: Soft Genitourinary: Yes: WNL Musculoskeletal: Yes: WNL Edema: No Neurological: Yes: Oriented Psychiatric: Yes: Oriented Labs: CBC, BMP 06/13/18 09:35 06/13/18 09:35 INR, PTT INR 1.31 (0.83-1.09) H 06/09/18 06:20 Problem List - Problems (1) ESRD (end stage renal disease) Code(s): N18.6 - END STAGE RENAL DISEASE Assessment/Plan Current Medications Generic Name Dose Route Start Last Admin Trade Name Freq PRN Reason Stop Dose Admin Acetaminophen 650 mg 06/10/18 00:02 06/13/18 06:31 Tylenol - PO 650 mg Q4H PRN Administration HEADACHE Albumin Human 12.5 gm 06/13/18 11:00 06/13/18 12:30 Albumin Human 25% IVPB 12.5 gm Q30M JULIAN Administration Amiodarone HCl 200 mg 06/10/18 10:00 06/13/18 14:30 Cordarone - PO 200 mg DAILY JULIAN Administration Buspirone HCl 10 mg 06/10/18 06:00 06/13/18 14:32 Buspar - PO 10 mg TID JULIAN Administration Calcium Carbonate 500 mg 06/10/18 07:00 06/13/18 11:00 Os-Merlin 500mg - PO Not Given TIDAC JULIAN Citalopram Hydrobromide 20 mg 06/10/18 10:00 06/13/18 14:31 Celexa - PO 20 mg DAILY JULIAN Administration Collagenase 1 applic 06/10/18 10:00 06/12/18 21:58 Santyl - TP 1 applic DAILY JULIAN Administration Protocol Cyanocobalamin 100 mcg 06/10/18 10:00 06/13/18 14:31 Vitamin B12 - PO 100 mcg DAILY JULIAN Administration Cyclobenzaprine HCl 2.5 mg 06/13/18 12:19 06/13/18 13:39 Cyclobenzaprine Hcl PO 2.5 mg Q12H PRN Administration MUSCLE SPASMS Folic Acid 1 mg 06/10/18 10:00 06/13/18 14:31 Folic Acid - PO 1 mg DAILY JULIAN Administration Heparin Sodium (Porcine) 1,000 unit 06/08/18 23:20 Heparin - IVPUSH PRN PRN Heparin Heparin Sodium (Porcine) 5,000 unit 06/08/18 23:20 Heparin - IVPUSH PRN PRN Heparin Piperacillin Sod/Tazobactam 50 mls @ 100 mls/hr 06/08/18 18:00 06/13/18 13:59 Sod 2.25 gm/ Dextrose IVPB 100 mls/hr Q8H-IV JULIAN Administration Protocol Heparin Sodium (Porcine) 25, 500 mls @ 20 mls/hr 06/08/18 23:30 06/13/18 13: 42 000 unit/ Sodium Chloride IV 1,100 unit/hr TITR JULIAN 22 mls/hr Titration Protocol 1,000 UNIT/HR Fluconazole 100 mls @ 100 mls/hr 06/09/18 16:00 06/13/18 15:02 Diflucan 200 Mg/D5w Premixed Ivpb - IVPB 100 mls/hr Q48H JULIAN Administration Levothyroxine Sodium 125 mcg 06/10/18 06:00 06/13/18 07:00 Synthroid - PO Not Given DAILY@0600 JULIAN Lidocaine 1 patch 06/12/18 10:00 06/13/18 09:14 Lidoderm Patch - TP 1 patch DAILY JULIAN Administration Midodrine 5 mg 06/08/18 10:00 06/13/18 14:33 Proamatine - PO 5 mg TID-MID JULIAN Administration Miscellaneous 1 each 06/12/18 22:00 06/12/18 21:59 Lidoderm Patch Removal MC 1 each DAILY@2200 JULIAN Administration Multivit/Ca Carb/B Cmplx/FA/Prenat 1 tablet 06/10/18 10:00 06/13/18 14:30 Nephro-Zane - PO 1 tablet DAILY JULIAN Administration Ranitidine HCl 150 mg 06/12/18 10:30 06/13/18 14:58 Zantac - PO 150 mg BID JULIAN Administration Impression 1. ESRD 2. CAD 3. CABG 4. COPD 5. CHF 6. SBP 7. DVT 8. hx mesinteric ischemia 9. hypothyroidism 10. gout 11. hld 12. pleural effusion 13. anemia Plan - pt tolerate HD today - monitor bp - epogen for anemia - renal diet - will need fistula once medically stable - will follow - discussed with family Dr Jones
[2018-06-13] MEDS ORDERED: PT OWN MED DRAWER 7, Y5N ONE ×2 (18:20→19:04)
[2018-06-13] MEDS: COLLAGENASE CLOSTRIDIUM HIST. 30 GRAMS TUBE TP SCH (19:34)
[2018-06-13] MEDS: LIDOCAINE PATCH REMOVAL MC SCH (21:25)
[2018-06-14] MEDS ORDERED: PIPERACILLIN/TAZOBACTAM 2.25 GM VIAL IVPB ONE ×3 (01:37→12:30)
[2018-06-14] MEDS ORDERED: DEXTROSE 5%-WATER - 50 ML IVPB ONE ×3 (01:38→12:30)
[2018-06-14] MEDS: PIPERACILLIN/TAZOB 2.25 GM 2.25 GM in DEXTROSE 5%-WATER - 50 ML IVPB SCH ×3 (01:53→19:42)
[2018-06-14] MEDS: CYCLOBENZAPRINE HCL 5 MG TABLET PO PRN ×2 (02:25→13:31)
[2018-06-14] MEDS: BANATROL PLUS POWDER PACKET PO SCH ×3 (06:42→22:50)
[2018-06-14] MEDS: LEVOTHYROXINE NA 125 MCG TABLET (FP) PO SCH (06:42)
[2018-06-14] MEDS: busPIRone HCL 10 MG TABLET (FP) PO SCH ×3 (06:42→21:40)
[2018-06-14] MEDS: CALCIUM (OYSTER SHELL) 500 MG TABLET (FP) PO SCH ×3 (06:42→17:52)
[2018-06-14] MEDS: ACETAMINOPHEN 325 MG TABLET (FP) PO PRN (06:42)
[2018-06-14 07:40] LABS: BASO % 1.3 % (0-2.0); EOS % 2.2 % (0-4.5); HEMATOCRIT 32.3 % (35.4-49); HEMOGLOBIN 10.3 GM/dL (11.7-16.9); LYMPH % 16.8 % (8-40); MEAN CELL VOLUME 96.9 fl (80-96); NEUT % 67.7 % (42.8-82.8); PLATELET COUNT 131 K/MM3 (134-434); RBC 3.33 M/mm3 (4.00-5.60); RDW 26.4 % (11.9-15.9); WHITE BLOOD COUNT 4.6 K/mm3 (4.0-10.0)
[2018-06-14 08:30] LABS: ANION GAP 8 MMOL/L (8-16); BLOOD UREA NITROGEN 15 mg/dL (7-18); CALCIUM 8.8 mg/dL (8.5-10.1); CHLORIDE 104 mmol/L (98-107); CO2 28 mmol/L (21-32); CREATININE 3.4 mg/dL (0.55-1.3); GLUCOSE,RANDOM 104 mg/dL (74-106); MAGNESIUM 1.9 mg/dL (1.8-2.4); PHOSPHOROUS 1.6 mg/dL (2.5-4.9); POTASSIUM 4.2 mmol/L (3.5-5.1); SODIUM 141 mmol/L (136-145)
--- NOTE | 2018-06-14 09:22 | PN ---
Progress Note, Physician History of Present Illness: Pt seen and examined at bedside. He is awake and alert. He complains of abdominal pain. He denies shortness of breath. He says he is not passing gas or stool. He did eat his breakfast. - Current Medication List Current Medications: Active Medications Acetaminophen (Tylenol -) 650 mg PO Q4H PRN PRN Reason: HEADACHE Last Admin: 06/14/18 06:42 Dose: 650 mg Amiodarone HCl (Cordarone -) 200 mg PO DAILY [facility] Last Admin: 06/13/18 14:30 Dose: 200 mg Buspirone HCl (Buspar -) 10 mg PO TID [facility] Last Admin: 06/14/18 06:42 Dose: 10 mg Calcium Carbonate (Os-Merlin 500mg -) 500 mg PO TIDAC [facility] Last Admin: 06/14/18 06:42 Dose: 500 mg Citalopram Hydrobromide (Celexa -) 20 mg PO DAILY [facility] Last Admin: 06/13/18 14:31 Dose: 20 mg Collagenase (Santyl -) 1 applic TP DAILY [facility]; Protocol Last Admin: 06/13/18 19:34 Dose: Not Given Cyanocobalamin (Vitamin B12 -) 100 mcg PO DAILY [facility] Last Admin: 06/13/18 14:31 Dose: 100 mcg Cyclobenzaprine HCl (Cyclobenzaprine Hcl) 2.5 mg PO Q12H PRN PRN Reason: MUSCLE SPASMS Last Admin: 06/14/18 02:25 Dose: 2.5 mg Folic Acid (Folic Acid -) 1 mg PO DAILY [facility] Last Admin: 06/13/18 14:31 Dose: 1 mg Heparin Sodium (Porcine) (Heparin -) 1,000 unit IVPUSH PRN PRN PRN Reason: Heparin Heparin Sodium (Porcine) (Heparin -) 5,000 unit IVPUSH PRN PRN PRN Reason: Heparin Piperacillin Sod/Tazobactam (Sod 2.25 gm/ Dextrose) 50 mls @ 100 mls/hr IVPB Q8H-IV JULIAN; Protocol Last Admin: 06/14/18 01:53 Dose: 100 mls/hr Heparin Sodium (Porcine) 25, (000 unit/ Sodium Chloride) 500 mls @ 20 mls/hr IV TITR JULIAN; Protocol Last Titration: 06/14/18 08:56 Dose: 950 unit/hr, 19 mls/hr Fluconazole (Diflucan 200 Mg/D5w Premixed Ivpb -) 100 mls @ 100 mls/hr IVPB Q48H [facility] Last Admin: 06/13/18 15:02 Dose: 100 mls/hr Levothyroxine Sodium (Synthroid -) 125 mcg PO DAILY@0600 [facility] Last Admin: 06/14/18 06:42 Dose: 125 mcg Lidocaine (Lidoderm Patch -) 1 patch TP DAILY [facility] Last Admin: 06/13/18 09:14 Dose: 1 patch Midodrine (Proamatine -) 5 mg PO TID-MID [facility] Last Admin: 06/13/18 18:26 Dose: 5 mg Miscellaneous (Lidoderm Patch Removal) 1 each MC DAILY@2200 [facility] Last Admin: 06/13/18 21:25 Dose: 1 each Multivit/Ca Carb/B Cmplx/FA/Prenat (Nephro-Zane -) 1 tablet PO DAILY [facility] Last Admin: 06/13/18 14:30 Dose: 1 tablet Ranitidine HCl (Zantac -) 150 mg PO BID [facility] Last Admin: 06/13/18 21:24 Dose: 150 mg - Objective Vital Signs: Vital Signs Temperature 97.9 F 06/14/18 06:00 Pulse Rate 69 06/14/18 06:00 Respiratory Rate 20 06/14/18 06:00 Blood Pressure 111/63 06/14/18 06:00 O2 Sat by Pulse Oximetry (%) 97 06/13/18 21:00 Constitutional: Yes: Calm Eyes: Yes: Conjunctiva Clear HENT: Yes: Atraumatic Cardiovascular: Yes: S1, S2 Respiratory: Yes: CTA Bilaterally Gastrointestinal: Yes: Distention. No: Tenderness Genitourinary: Yes: WNL Musculoskeletal: Yes: WNL Edema: No Neurological: Yes: Oriented Psychiatric: Yes: Oriented Labs: CBC, BMP 06/14/18 06:15 06/14/18 06:15 INR, PTT INR 1.31 (0.83-1.09) H 06/09/18 06:20 Problem List - Problems (1) ESRD (end stage renal disease) Code(s): N18.6 - END STAGE RENAL DISEASE Assessment/Plan Current Medications Generic Name Dose Route Start Last Admin Trade Name Freq PRN Reason Stop Dose Admin Acetaminophen 650 mg 06/10/18 00:02 06/14/18 06:42 Tylenol - PO 650 mg Q4H PRN Administration HEADACHE Amiodarone HCl 200 mg 06/10/18 10:00 06/13/18 14:30 Cordarone - PO 200 mg DAILY JULIAN Administration Buspirone HCl 10 mg 06/10/18 06:00 06/14/18 06:42 Buspar - PO 10 mg TID JULIAN Administration Calcium Carbonate 500 mg 06/10/18 07:00 06/14/18 06:42 Os-Merlin 500mg - PO 500 mg TIDAC JULIAN Administration Citalopram Hydrobromide 20 mg 06/10/18 10:00 06/13/18 14:31 Celexa - PO 20 mg DAILY JULIAN Administration Collagenase 1 applic 06/10/18 10:00 06/13/18 19:34 Santyl - TP Not Given DAILY [facility] Protocol Cyanocobalamin 100 mcg 06/10/18 10:00 06/13/18 14:31 Vitamin B12 - PO 100 mcg DAILY JULIAN Administration Cyclobenzaprine HCl 2.5 mg 06/13/18 12:19 06/14/18 02:25 Cyclobenzaprine Hcl PO 2.5 mg Q12H PRN Administration MUSCLE SPASMS Folic Acid 1 mg 06/10/18 10:00 06/13/18 14:31 Folic Acid - PO 1 mg DAILY JULIAN Administration Heparin Sodium (Porcine) 1,000 unit 06/08/18 23:20 Heparin - IVPUSH PRN PRN Heparin Heparin Sodium (Porcine) 5,000 unit 06/08/18 23:20 Heparin - IVPUSH PRN PRN Heparin Piperacillin Sod/Tazobactam 50 mls @ 100 mls/hr 06/08/18 18:00 06/14/18 01:53 Sod 2.25 gm/ Dextrose IVPB 100 mls/hr Q8H-IV JULIAN Administration Protocol Heparin Sodium (Porcine) 25, 500 mls @ 20 mls/hr 06/08/18 23:30 06/14/18 08: 56 000 unit/ Sodium Chloride IV 950 unit/hr TITR JULIAN 19 mls/hr Titration Protocol 1,000 UNIT/HR Fluconazole 100 mls @ 100 mls/hr 06/09/18 16:00 06/13/18 15:02 Diflucan 200 Mg/D5w Premixed Ivpb - IVPB 100 mls/hr Q48H JULIAN Administration Levothyroxine Sodium 125 mcg 06/10/18 06:00 06/14/18 06:42 Synthroid - PO 125 mcg DAILY@0600 JULIAN Administration Lidocaine 1 patch 06/12/18 10:00 06/13/18 09:14 Lidoderm Patch - TP 1 patch DAILY JULIAN Administration Midodrine 5 mg 06/08/18 10:00 06/13/18 18:26 Proamatine - PO 5 mg TID-MID JULIAN Administration Miscellaneous 1 each 06/12/18 22:00 06/13/18 21:25 Lidoderm Patch Removal MC 1 each DAILY@2200 JULIAN Administration Multivit/Ca Carb/B Cmplx/FA/Prenat 1 tablet 06/10/18 10:00 06/13/18 14:30 Nephro-Zane - PO 1 tablet DAILY JULIAN Administration Ranitidine HCl 150 mg 06/12/18 10:30 06/13/18 21:24 Zantac - PO 150 mg BID JULIAN Administration Impression 1. ESRD 2. CAD 3. CABG 4. COPD 5. CHF 6. SBP 7. DVT 8. hx mesinteric ischemia 9. hypothyroidism 10. gout 11. hld 12. pleural effusion 13. anemia 14. abd pain Plan - next HD tomorrow - make npo as he has abd pain - recall surgery - spoke to nurse - informed medical team - will evaluate for HD tomorrow - will need fistula once medically stable - will follow Dr Jones
[2018-06-14] MEDS: MIDODRINE HCL 2.5 MG TABLET PO SCH ×3 (10:00→17:53)
--- NOTE | 2018-06-14 11:13 | PN ---
Progress Note, Physician History of Present Illness: this morning complaints of worsening abdominal pain associated with nausea and vomiting. now says better - Current Medication List Current Medications: Active Medications Acetaminophen (Tylenol -) 650 mg PO Q4H PRN PRN Reason: HEADACHE Last Admin: 06/14/18 06:42 Dose: 650 mg Amiodarone HCl (Cordarone -) 200 mg PO DAILY [facility] Last Admin: 06/13/18 14:30 Dose: 200 mg Buspirone HCl (Buspar -) 10 mg PO TID [facility] Last Admin: 06/14/18 06:42 Dose: 10 mg Calcium Carbonate (Os-Merlin 500mg -) 500 mg PO TIDAC [facility] Last Admin: 06/14/18 06:42 Dose: 500 mg Citalopram Hydrobromide (Celexa -) 20 mg PO DAILY [facility] Last Admin: 06/13/18 14:31 Dose: 20 mg Collagenase (Santyl -) 1 applic TP DAILY [facility]; Protocol Last Admin: 06/13/18 19:34 Dose: Not Given Cyanocobalamin (Vitamin B12 -) 100 mcg PO DAILY [facility] Last Admin: 06/13/18 14:31 Dose: 100 mcg Cyclobenzaprine HCl (Cyclobenzaprine Hcl) 2.5 mg PO Q12H PRN PRN Reason: MUSCLE SPASMS Last Admin: 06/14/18 02:25 Dose: 2.5 mg Folic Acid (Folic Acid -) 1 mg PO DAILY [facility] Last Admin: 06/13/18 14:31 Dose: 1 mg Heparin Sodium (Porcine) (Heparin -) 1,000 unit IVPUSH PRN PRN PRN Reason: Heparin Heparin Sodium (Porcine) (Heparin -) 5,000 unit IVPUSH PRN PRN PRN Reason: Heparin Piperacillin Sod/Tazobactam (Sod 2.25 gm/ Dextrose) 50 mls @ 100 mls/hr IVPB Q8H-IV JULIAN; Protocol Last Admin: 06/14/18 01:53 Dose: 100 mls/hr Heparin Sodium (Porcine) 25, (000 unit/ Sodium Chloride) 500 mls @ 20 mls/hr IV TITR JULIAN; Protocol Last Titration: 06/14/18 08:56 Dose: 950 unit/hr, 19 mls/hr Fluconazole (Diflucan 200 Mg/D5w Premixed Ivpb -) 100 mls @ 100 mls/hr IVPB Q48H [facility] Last Admin: 06/13/18 15:02 Dose: 100 mls/hr Levothyroxine Sodium (Synthroid -) 125 mcg PO DAILY@0600 [facility] Last Admin: 06/14/18 06:42 Dose: 125 mcg Lidocaine (Lidoderm Patch -) 1 patch TP DAILY [facility] Last Admin: 06/13/18 09:14 Dose: 1 patch Midodrine (Proamatine -) 5 mg PO TID-MID [facility] Last Admin: 06/13/18 18:26 Dose: 5 mg Miscellaneous (Lidoderm Patch Removal) 1 each MC DAILY@2200 [facility] Last Admin: 06/13/18 21:25 Dose: 1 each Multivit/Ca Carb/B Cmplx/FA/Prenat (Nephro-Zane -) 1 tablet PO DAILY [facility] Last Admin: 06/13/18 14:30 Dose: 1 tablet Ranitidine HCl (Zantac -) 150 mg PO BID [facility] Last Admin: 06/13/18 21:24 Dose: 150 mg - Objective Vital Signs: Vital Signs Temperature 97.9 F 06/14/18 06:00 Pulse Rate 69 06/14/18 06:00 Respiratory Rate 20 06/14/18 06:00 Blood Pressure 111/63 06/14/18 06:00 O2 Sat by Pulse Oximetry (%) 97 06/13/18 21:00 Constitutional: Yes: No Distress Cardiovascular: Yes: S1, S2 Respiratory: Yes: Regular, CTA Bilaterally Gastrointestinal: Yes: Ascites Musculoskeletal: Yes: WNL Extremities: Yes: Other Wound/Incision: Yes: Dressing Dry and Intact Neurological: Yes: Alert, Oriented Psychiatric: Yes: Alert, Oriented Labs: CBC, BMP 06/14/18 06:15 06/14/18 06:15 INR, PTT INR 1.31 (0.83-1.09) H 06/09/18 06:20 Assessment/Plan ASSESSMENT AND PLAN: (1) Hypotension Code(s): I95.9 - HYPOTENSION, UNSPECIFIED (2) ESRD (end stage renal disease) Code(s): N18.6 - END STAGE RENAL DISEASE (3) Ascites Code(s): R18.8 - OTHER ASCITES (4) Supratherapeutic INR Code(s): R79.1 - ABNORMAL COAGULATION PROFILE (5) CAD (coronary artery disease) Code(s): I25.10 - ATHSCL HEART DISEASE OF [place] CORONARY ARTERY W/O ANG PCTRS (6) CHF (congestive heart failure) Code(s): I50.9 - HEART FAILURE, UNSPECIFIED Qualifiers: Heart failure chronicity: acute on chronic (7) Hypothyroid Code(s): E03.9 - HYPOTHYROIDISM, UNSPECIFIED (8) SBP (secondary bacterial peritonitis) Code(s): K65.2 - SPONTANEOUS BACTERIAL PERITONITIS (9) Anxiety -consult psychiatry 10 b/l heel ulcer plan continue abx decision needs to be made by surgery on further plan or patient needs to be txed to tertiary care dialysis rest as per the team
--- NOTE | 2018-06-14 11:41 | PN ---
Physical Exam: SUBJECTIVE: Patient seen and examined by me at bedside. No acute events overnight However, patient this morning complaints of worsening abdominal pain associated with nausea and vomiting. Will need to speak to Dr. Crum today as patient may need to be taken to OR. However, patient has no fevers or leukocytosis. Otherwise, denies fevers, chills, chest pain, shortness of breath, urinary symptoms OBJECTIVE: Vital Signs Period Temp Pulse Resp BP Sys/Emery Pulse Ox Last 24 Hr 97.4 F-98.0 F 57-73 18-22 100-133/46-69 97 GENERAL: The patient is awake, alert, frail looking and fully oriented, in no acute distress. EYES: Sclera anicteric, conjunctiva clear. No ptosis. ENT: Moist mucous membranes. LUNGS: bibasilar fine rales with no wheezing or no accessory muscle use. HEART: Regular rate and rhythm, S1, S2 with (+) JOSIE ABDOMEN: Soft, nontender, nondistended, normoactive bowel sounds (+) vertical incisional scar C/D/I EXTREMITIES: No edema. (+) Stage I ulcer of left heel and second toe SKIN: Warm, dry, normal turgor, no rashes or lesions noted Laboratory Results 06/14/18 06:15 06/14/18 06:15 06/14/18 06:15 Phosphorus 1.6 L Magnesium 1.9 Active Medications Generic Name Dose Route Start Last Admin Trade Name Freq PRN Reason Stop Dose Admin Acetaminophen 650 mg 06/10/18 00:02 06/14/18 06:42 Tylenol - PO 650 mg Q4H PRN Administration HEADACHE Amiodarone HCl 200 mg 06/10/18 10:00 06/13/18 14:30 Cordarone - PO 200 mg DAILY JULIAN Administration Buspirone HCl 10 mg 06/10/18 06:00 06/14/18 06:42 Buspar - PO 10 mg TID JULIAN Administration Calcium Carbonate 500 mg 06/10/18 07:00 06/14/18 06:42 Os-Merlin 500mg - PO 500 mg TIDAC JULIAN Administration Citalopram Hydrobromide 20 mg 06/10/18 10:00 06/13/18 14:31 Celexa - PO 20 mg DAILY JULIAN Administration Collagenase 1 applic 06/10/18 10:00 06/13/18 19:34 Santyl - TP Not Given DAILY JULIAN Protocol Cyanocobalamin 100 mcg 06/10/18 10:00 06/13/18 14:31 Vitamin B12 - PO 100 mcg DAILY JULIAN Administration Cyclobenzaprine HCl 2.5 mg 06/13/18 12:19 06/14/18 02:25 Cyclobenzaprine Hcl PO 2.5 mg Q12H PRN Administration MUSCLE SPASMS Folic Acid 1 mg 06/10/18 10:00 06/13/18 14:31 Folic Acid - PO 1 mg DAILY JULIAN Administration Heparin Sodium (Porcine) 1,000 unit 06/08/18 23:20 Heparin - IVPUSH PRN PRN Heparin Heparin Sodium (Porcine) 5,000 unit 06/08/18 23:20 Heparin - IVPUSH PRN PRN Heparin Piperacillin Sod/Tazobactam 50 mls @ 100 mls/hr 06/08/18 18:00 06/14/18 01:53 Sod 2.25 gm/ Dextrose IVPB 100 mls/hr Q8H-IV JULIAN Administration Protocol Heparin Sodium (Porcine) 25, 500 mls @ 20 mls/hr 06/08/18 23:30 06/14/18 08: 56 000 unit/ Sodium Chloride IV 950 unit/hr TITR JULIAN 19 mls/hr Titration Protocol 1,000 UNIT/HR Fluconazole 100 mls @ 100 mls/hr 06/09/18 16:00 06/13/18 15:02 Diflucan 200 Mg/D5w Premixed Ivpb - IVPB 100 mls/hr Q48H JULIAN Administration Levothyroxine Sodium 125 mcg 06/10/18 06:00 06/14/18 06:42 Synthroid - PO 125 mcg DAILY@0600 JULIAN Administration Lidocaine 1 patch 06/12/18 10:00 06/13/18 09:14 Lidoderm Patch - TP 1 patch DAILY JULIAN Administration Midodrine 5 mg 06/08/18 10:00 06/13/18 18:26 Proamatine - PO 5 mg TID-MID JULIAN Administration Miscellaneous 1 each 06/12/18 22:00 06/13/18 21:25 Lidoderm Patch Removal MC 1 each DAILY@2200 JULIAN Administration Multivit/Ca Carb/B Cmplx/FA/Prenat 1 tablet 06/10/18 10:00 06/13/18 14:30 Nephro-Zane - PO 1 tablet DAILY JULIAN Administration Ranitidine HCl 150 mg 06/12/18 10:30 06/13/18 21:24 Zantac - PO 150 mg BID JULIAN Administration ASSESSMENT/PLAN: Patient is a 67 year old male with a PMHx of CAD s/p CABG, Defibrillator ( [employer]), COPD (on 2-3L Home O2), ESRD (On HD // via Right Tunnel Cath), CHF presents from [facility]) with Chest pain. #Loculated Ascites -Paracentesis done with >44140 WBC predominately neutrophils. Fluid analysis revealed SAAG <1.1, with high protein and LDH, Consistent with exudative fluid. This may be from possible obstruction, infection, peritonitis -Continue IV Zosyn 2.25gm Q8H day#6 -Surgery following and will need to call surgeon from [facility], however patient refuses to go to [facility]. Patient clinically stable with no fevers , leukocytosis #Mesentric ischemia s/p right hemicolectomy -Complaints of Abdominal pain with vomiting today -Surgeons made aware -Patient had procedures done at [facility] but refuses to go back there. Would like to have different opinions at this hospital and further management. Spoke to surgeon, Dr. 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 Recommended patient to be transferred to [facility] where the procedure happened. -Will attempt to have patient transferred back to [facility] once Dr. Crum speaks to surgeon there #Supratherapeutic INR- Resolved -Continue Heparin Drip for thrombus -Continue to monitor #Back Pain -Lidocaine patch for pain -Flexeril 2.5mg BID PRN #Diarrhea -Possibly infectious vs mechanical. C.Diff negative. Possibly from recent colectomy -Continue to monitor #Filling defect SVC/Left brachiocephalic -Shown on CTA chest report from 05/23/2018 -UE duplex shows right IJ thrombus -Continue Heparin drip and then transition to Eliquis outpatient #Hypotension -Continue Midodrine -Patient with low BP but has improved -Continue to monitor #Chest pain -Likely due to anxiety. 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 -Sodium controlled diet #Prophylaxis -Heparin drip for DVT. -No GI required #Disposition -Full code -Pending call back from surgeon sondra Ceja [id number] Visit type - Emergency Visit Emergency Visit: Yes ED Registration Date: 05/31/18 Care time: The patient presented to the Emergency Department on the above date and was hospitalized for further evaluation of their emergent condition. - New Patient This patient is new to me today: No - Critical Care Critical Care patient: No
--- NOTE | 2018-06-14 11:49 | PN ---
Progress Note (short form) - Note Progress Note: - Note Progress Note: s: no cp sob palps dizzy. episode of abd pain this AM o: Vital Signs Period Temp Pulse Resp BP Sys/Emery Pulse Ox Last 24 Hr 97.3 F-98.0 F 57-80 18-22 98-133/46-69 97 Constitutional: Yes: Well Nourished, No Distress, Calm Eyes: Yes: Conjunctiva Clear HENT: Yes: Atraumatic, Normocephalic Neck: Yes: Supple, Trachea Midline Respiratory: Yes: cta bl nl eff Gastrointestinal: Yes: Normal Bowel Sounds, Soft Cardiovascular: Yes: Regular Rate and Rhythm JVD: No Carotid Bruit: No PMI: Non-Displaced Heart Sounds: Yes: S1, S2 Musculoskeletal: No: Back Pain Extremities: No: Cold Edema: trace Peripheral Pulses: 2+ Left Doralis Pedis, 2+ Right Dorsalis Pedis Integumentary: No: Jaundice Neurological: Yes: Alert, Oriented Current Medications Acetaminophen (Tylenol -) 650 mg PO Q4H PRN PRN Reason: HEADACHE Last Admin: 06/14/18 06:42 Dose: 650 mg Amiodarone HCl (Cordarone -) 200 mg PO DAILY [facility] Last Admin: 06/13/18 14:30 Dose: 200 mg Buspirone HCl (Buspar -) 10 mg PO TID [facility] Last Admin: 06/14/18 06:42 Dose: 10 mg Calcium Carbonate (Os-Merlin 500mg -) 500 mg PO TIDAC [facility] Last Admin: 06/14/18 06:42 Dose: 500 mg Citalopram Hydrobromide (Celexa -) 20 mg PO DAILY [facility] Last Admin: 06/13/18 14:31 Dose: 20 mg Collagenase (Santyl -) 1 applic TP DAILY [facility]; Protocol Last Admin: 06/13/18 19:34 Dose: Not Given Cyanocobalamin (Vitamin B12 -) 100 mcg PO DAILY [facility] Last Admin: 06/13/18 14:31 Dose: 100 mcg Cyclobenzaprine HCl (Cyclobenzaprine Hcl) 2.5 mg PO Q12H PRN PRN Reason: MUSCLE SPASMS Last Admin: 06/14/18 02:25 Dose: 2.5 mg Folic Acid (Folic Acid -) 1 mg PO DAILY [facility] Last Admin: 06/13/18 14:31 Dose: 1 mg Heparin Sodium (Porcine) (Heparin -) 1,000 unit IVPUSH PRN PRN PRN Reason: Heparin Heparin Sodium (Porcine) (Heparin -) 5,000 unit IVPUSH PRN PRN PRN Reason: Heparin Piperacillin Sod/Tazobactam (Sod 2.25 gm/ Dextrose) 50 mls @ 100 mls/hr IVPB Q8H-IV JULIAN; Protocol Last Admin: 06/14/18 01:53 Dose: 100 mls/hr Heparin Sodium (Porcine) 25, (000 unit/ Sodium Chloride) 500 mls @ 20 mls/hr IV TITR JULIAN; Protocol Last Titration: 06/14/18 08:56 Dose: 950 unit/hr, 19 mls/hr Fluconazole (Diflucan 200 Mg/D5w Premixed Ivpb -) 100 mls @ 100 mls/hr IVPB Q48H [facility] Last Admin: 06/13/18 15:02 Dose: 100 mls/hr Levothyroxine Sodium (Synthroid -) 125 mcg PO DAILY@0600 [facility] Last Admin: 06/14/18 06:42 Dose: 125 mcg Lidocaine (Lidoderm Patch -) 1 patch TP DAILY [facility] Last Admin: 06/13/18 09:14 Dose: 1 patch Midodrine (Proamatine -) 5 mg PO TID-MID [facility] Last Admin: 06/13/18 18:26 Dose: 5 mg Miscellaneous (Lidoderm Patch Removal) 1 each MC DAILY@2200 [facility] Last Admin: 06/13/18 21:25 Dose: 1 each Multivit/Ca Carb/B Cmplx/FA/Prenat (Nephro-Zane -) 1 tablet PO DAILY [facility] Last Admin: 06/13/18 14:30 Dose: 1 tablet Ranitidine HCl (Zantac -) 150 mg PO BID [facility] Last Admin: 06/13/18 21:24 Dose: 150 mg Assessment/Plan echo 05/2018 nl LV size, mildly reduced function EF 45-50%, mild global hypokinesis of LV, nl RV, ppm lead in RV and RA, tr TR EKG: sinus, prolonged QTC, old septal infarct Shortness of breath - trop neg x 3 - also with COPD hx, on chronic O2 - after hd pt feeling better, no sob acute on chronic systolic HF - mildly reduced EF on echo - appeared volume up as above on admit - volume management per renal, sob resolved after HD - not on DELANO/BB due to low BP Prolonged QTc - avoid QT prolonging agents - maintain K >4, Mg >2 s/p ICD (Pruffi) - outpatient follow up, Dr. Stover - recent device checks unremarkable per patient - cont amiodarone hypotension - continue midodrine ESRD on HD - renal consulted CAD, s/p CABG - cont statin - holding aspirin, elevated INR and anemia mesenteric ischemia - recent dx, s/p surgery during recent admission for hip fx anemia - manage per primary ascites: -GI, ID, surgery following, on abx. manage per primary Right IJ dvt: -plans per vascular, on hep gtt
[2018-06-14] MEDS ORDERED: PT OWN MED DRAWER 7, Y5N ONE ×4 (12:23→20:08)
[2018-06-14] MEDS: VITAMIN B COMP W-C 1 EA TABLET PO SCH (12:32)
[2018-06-14] MEDS: LIDOCAINE 5% TOPICAL PATCH TP SCH (12:33)
[2018-06-14] MEDS: FOLIC ACID 1 MG TABLET (FP) PO SCH (12:36)
[2018-06-14] MEDS: RANITIDINE HCL 150 MG TABLET (FP) PO SCH ×2 (12:36→21:40)
[2018-06-14] MEDS: CYANOCOBALAMIN (VITAMIN B-12) 100 MCG TABLET PO SCH (12:37)
[2018-06-14] MEDS: CITALOPRAM HYDROBROMIDE 20 MG TABLET (FP) PO SCH (12:37)
[2018-06-14] MEDS: AMIODARONE HCL 200 MG TABLET (FP) PO SCH (12:40)
--- NOTE | 2018-06-14 16:23 | PN ---
Teaching Attending Note Name of Resident: Mindy Floyd ATTENDING PHYSICIAN STATEMENT I saw and evaluated the patient. I reviewed the resident's note and discussed the case with the resident. I agree with the resident's findings and plan as documented. SUBJECTIVE: Mr Schaeffer had abdominal pain overnight and emesis this am. Currently says he is feeling better and denies cp, sob, n/v. OBJECTIVE: Last Vital Signs Temp Pulse Resp BP Pulse Ox 36.3 C L 65 22 H 127/65 97 06/14/18 14:23 06/14/18 14:23 06/14/18 14:23 06/14/18 14:23 06/14/18 09:00 Gen: nad Pulm: ctab w/o w/r/r CV: rrr w/o m/r/g Abd: +bs, distended, no TTP Ext: no c/c/e CBC, BMP 06/14/18 06:15 06/14/18 06:15 ASSESSMENT AND PLAN: (1) Hypotension Assessment/Plan: -continue midodrine -stable Code(s): I95.9 - HYPOTENSION, UNSPECIFIED (2) ESRD (end stage renal disease) Assessment/Plan: -case d/w nephrology -continue HD Code(s): N18.6 - END STAGE RENAL DISEASE (3) Ascites Assessment/Plan: -s/p paracentesis showing 68,965 WBCs -cultures negative -continue zosyn per ID recommendations -case d/w Dr Crum -will need definitive recommendation on whether patient needs surgical intervention this hospital stay Code(s): R18.8 - OTHER ASCITES (4) Supratherapeutic INR Assessment/Plan: -normalized -now on heparin gtt for VTE -will need bridge back to coumadin when planning for discharge Code(s): R79.1 - ABNORMAL COAGULATION PROFILE (5) CAD (coronary artery disease) Assessment/Plan: -quiescent Code(s): I25.10 - ATHSCL HEART DISEASE OF [place] CORONARY ARTERY W/O ANG PCTRS (6) CHF (congestive heart failure) Assessment/Plan: -treating with HD Code(s): I50.9 - HEART FAILURE, UNSPECIFIED Qualifiers: Heart failure chronicity: acute on chronic (7) Hypothyroid Assessment/Plan: -continue synthroid Code(s): E03.9 - HYPOTHYROIDISM, UNSPECIFIED (8) SBP (secondary bacterial peritonitis) Assessment/Plan: -as above Code(s): K65.2 - SPONTANEOUS BACTERIAL PERITONITIS (9) Anxiety -continue buspar (10) Anemia -stable Problem List - Problems (1) Hypotension Code(s): I95.9 - HYPOTENSION, UNSPECIFIED (2) ESRD (end stage renal disease) Code(s): N18.6 - END STAGE RENAL DISEASE (3) Ascites Code(s): R18.8 - OTHER ASCITES Qualifiers: Ascites type: other type Qualified Code(s): R18.8 - Other ascites (4) Supratherapeutic INR Code(s): R79.1 - ABNORMAL COAGULATION PROFILE (5) CAD (coronary artery disease) Code(s): I25.10 - ATHSCL HEART DISEASE OF [place] CORONARY ARTERY W/O ANG PCTRS Qualifiers: Coronary Disease-Associated Artery/Lesion type: [place] artery [place] vs. transplanted heart: [place] heart Associated angina: without angina Qualified Code(s): I25.10 - Atherosclerotic heart disease of [place] coronary artery without angina pectoris (6) CHF (congestive heart failure) Code(s): I50.9 - HEART FAILURE, UNSPECIFIED Qualifiers: Heart failure type: unspecified Heart failure chronicity: acute on chronic Qualified Code(s): I50.9 - Heart failure, unspecified (7) Hypothyroid Code(s): E03.9 - HYPOTHYROIDISM, UNSPECIFIED Qualifiers: Hypothyroidism type: unspecified Qualified Code(s): E03.9 - Hypothyroidism , unspecified (8) SBP (spontaneous bacterial peritonitis) Code(s): K65.2 - SPONTANEOUS BACTERIAL PERITONITIS
--- NOTE | 2018-06-14 16:36 | PN ---
Progress Note (short form) - Note Progress Note: Vascular Surgery Duplex reviewed. Right IJ clot is iatrogenic from permacath placement. Would not anticoagulate the pt, since clot in IJ is from trauma caused by the permacath. Armando Woodard DO
--- NOTE | 2018-06-14 16:58 | PN ---
Progress Note, Physician History of Present Illness: Operative notes from April received from medical records and reviewed. Spoke with Dr. Soliman, patient's surgeon at [facility]. He is seen and examined in bed, awake, with mother and daughter at bedside. He woke up this morning ~4am with lower abdominal pain, which was not initially relieved by a BM, but did get a bit better after a second loose BM. By breakfast , the pain was less, but he vomited his breakfast of Nepro and a muffin. At this time, he has more back pain than abdominal, across the lower lumbar region , and can't fully appreciate the abdominal pain he had earlier anymore. He is not hungry. He is not nauseated anymore. He has had no fevers, and wbc is still normal. He is not tender in the abdomen. Today's notes reviewed. - Current Medication List Current Medications: Active Medications Acetaminophen (Tylenol -) 650 mg PO Q4H PRN PRN Reason: HEADACHE Last Admin: 06/14/18 06:42 Dose: 650 mg Amiodarone HCl (Cordarone -) 200 mg PO DAILY [facility] Last Admin: 06/14/18 12:40 Dose: 200 mg Buspirone HCl (Buspar -) 10 mg PO TID [facility] Last Admin: 06/14/18 13:32 Dose: 10 mg Calcium Carbonate (Os-Merlin 500mg -) 500 mg PO TIDAC [facility] Last Admin: 06/14/18 12:37 Dose: 500 mg Citalopram Hydrobromide (Celexa -) 20 mg PO DAILY [facility] Last Admin: 06/14/18 12:37 Dose: 20 mg Collagenase (Santyl -) 1 applic TP DAILY [facility]; Protocol Last Admin: 06/13/18 19:34 Dose: Not Given Cyanocobalamin (Vitamin B12 -) 100 mcg PO DAILY [facility] Last Admin: 06/14/18 12:37 Dose: 100 mcg Cyclobenzaprine HCl (Cyclobenzaprine Hcl) 2.5 mg PO Q12H PRN PRN Reason: MUSCLE SPASMS Last Admin: 06/14/18 13:31 Dose: 2.5 mg Folic Acid (Folic Acid -) 1 mg PO DAILY [facility] Last Admin: 06/14/18 12:36 Dose: 1 mg Heparin Sodium (Porcine) (Heparin -) 1,000 unit IVPUSH PRN PRN PRN Reason: Heparin Heparin Sodium (Porcine) (Heparin -) 5,000 unit IVPUSH PRN PRN PRN Reason: Heparin Piperacillin Sod/Tazobactam (Sod 2.25 gm/ Dextrose) 50 mls @ 100 mls/hr IVPB Q8H-IV JULIAN; Protocol Last Admin: 06/14/18 12:31 Dose: 100 mls/hr Heparin Sodium (Porcine) 25, (000 unit/ Sodium Chloride) 500 mls @ 20 mls/hr IV TITR JULIAN; Protocol Last Titration: 06/14/18 08:56 Dose: 950 unit/hr, 19 mls/hr Fluconazole (Diflucan 200 Mg/D5w Premixed Ivpb -) 100 mls @ 100 mls/hr IVPB Q48H [facility] Last Admin: 06/13/18 15:02 Dose: 100 mls/hr Levothyroxine Sodium (Synthroid -) 125 mcg PO DAILY@0600 [facility] Last Admin: 06/14/18 06:42 Dose: 125 mcg Lidocaine (Lidoderm Patch -) 1 patch TP DAILY [facility] Last Admin: 06/14/18 12:33 Dose: 1 patch Midodrine (Proamatine -) 5 mg PO TID-MID [facility] Last Admin: 06/14/18 13:32 Dose: 5 mg Miscellaneous (Lidoderm Patch Removal) 1 each MC DAILY@2200 [facility] Last Admin: 06/13/18 21:25 Dose: 1 each Multivit/Ca Carb/B Cmplx/FA/Prenat (Nephro-Zane -) 1 tablet PO DAILY [facility] Last Admin: 06/14/18 12:32 Dose: 1 tablet Ranitidine HCl (Zantac -) 150 mg PO BID [facility] Last Admin: 06/14/18 12:36 Dose: 150 mg - Objective Vital Signs: Vital Signs Temperature 97.3 F L 06/14/18 14:23 Pulse Rate 65 06/14/18 14:23 Respiratory Rate 22 H 06/14/18 14:23 Blood Pressure 127/65 06/14/18 14:23 O2 Sat by Pulse Oximetry (%) 97 06/14/18 09:00 Constitutional: Yes: Well Nourished, Calm, Mild Distress (from back pain) Eyes: Yes: Conjunctiva Clear, EOM Intact HENT: Yes: Atraumatic, Normocephalic Gastrointestinal: Yes: Soft, Ascites, Distention, Hypoactive Bowel Sounds. No: Hernia, Tenderness, Vomiting Extremities: Yes: Other (both heels dressed). No: Cool, Cyanosis Integumentary: Yes: Incision (midline abdominal scar, healed). No: Jaundice, Rash Neurological: Yes: Alert, Oriented Labs: CBC, BMP 06/14/18 06:15 06/14/18 06:15 PTT 123 this am, hep held and resumed a bit lower, now 41 Phos 1.6 low Microbiology 06/07/18 15:10 AFB Smear Concentration - Final Paracentesis Mycobacterial Culture - Preliminary no AFB seen - ....Imaging Chest X-ray: Report Reviewed, Image Reviewed (CXR reviewed - improved basal aeration, no free air appreciated) Problem List - Problems (1) Ascites Assessment/Plan: s/p paracentesis 05/[address] [facility] was to finish abx outpatient but came here on 05/31 pt on abx per ID abdominal pain has essentially resolved, though unclear etiology no abdominal tenderness, no contrast extravasation on CT, no wbc, no fevers no growth on paracentesis fluid though wbc in fluid - may represent resolving peritonitis - tends to argue against active infectious process [per [facility], wbc in fluid were more on 05/24 (84.8K vs 68K here)] reviewed op notes from [facility] and spoke with Dr. Deirdre Soliman pt had damage control laparotomy 04/28 with resection of portion of jejunum and right colon and transverse colon and all of omentum, with surgicel and packing in upper quadrants and abdominal wound VAC 04/30 was returned to OR for washout and anastomoses - additional length of terminal ileum was taken to facilitate tension free anastomosis with left colon/ splenic flexure, and jejunojejunal anastomosis performed as well symptoms and clinical presentation in early May were quite similar to that here on 05/31 - without clinical picture of peritonitis he is only 6 weeks out from above operations, and surgery now would be difficult with risks including significant adhesions, bowel injury, possible need for ostomy and potential for wound complications, in addition to his underlying comorbidities in absence of leukocytosis, fever, abdominal tenderness, clinical signs of peritonitis, would not pursue surgical intervention at this time in any case, if surgery were indicated, he would need to return to [facility], or a tertiary center willing to accept him will repeat CT scan (PO/IV contrast) to ensure no significant changes (contrast extravasation, obstruction), and evaluate current state of ascites if still with large volume of ascites, even loculated, would consider reattempting IR/US-guided paracentesis to remove more fluid, especially if more accessible area can be identified - can discuss with IR tomorrow antibiotic duration per ID, but will need to stop at some point and follow clinically and/or with future imaging would make sure pt has CD of radiologic studies here when he leaves discussed with Dr. Pink Code(s): R18.8 - OTHER ASCITES Qualifiers: Ascites type: other type Qualified Code(s): R18.8 - Other ascites (2) S/P partial colectomy Code(s): Z90.49 - ACQUIRED ABSENCE OF OTHER SPECIFIED PARTS OF DIGESTIVE TRACT (3) S/P small bowel resection Code(s): Z90.49 - ACQUIRED ABSENCE OF OTHER SPECIFIED PARTS OF DIGESTIVE TRACT (4) Supratherapeutic INR Code(s): R79.1 - ABNORMAL COAGULATION PROFILE (5) CAD (coronary artery disease) Code(s): I25.10 - ATHSCL HEART DISEASE OF [place] CORONARY ARTERY W/O ANG PCTRS Qualifiers: Coronary Disease-Associated Artery/Lesion type: [place] artery [place] vs. transplanted heart: [place] heart Associated angina: without angina Qualified Code(s): I25.10 - Atherosclerotic heart disease of [place] coronary artery without angina pectoris (6) CHF (congestive heart failure) Code(s): I50.9 - HEART FAILURE, UNSPECIFIED Qualifiers: Heart failure type: unspecified Heart failure chronicity: acute on chronic Qualified Code(s): I50.9 - Heart failure, unspecified (7) ESRD (end stage renal disease) Code(s): N18.6 - END STAGE RENAL DISEASE (8) Hypothyroid Code(s): E03.9 - HYPOTHYROIDISM, UNSPECIFIED Qualifiers: Hypothyroidism type: unspecified Qualified Code(s): E03.9 - Hypothyroidism , unspecified
[2018-06-14] MEDS: COLLAGENASE CLOSTRIDIUM HIST. 30 GRAMS TUBE TP SCH (17:36)
[2018-06-14] MEDS ORDERED: MORPHINE SULFATE 2 MG/ML VIAL IVPUSH ONE (17:45)
--- NOTE | 2018-06-14 18:04 | PN ---
Progress Note (short form) - Note Progress Note: Patient seen a complains of back pains and was just medicated for pain Discussed with patient and sister Patient with IJ clot secondary to catheter. Can be discharged on NOAC which should bemaintained for 3 months. At time of surgery - discontinue NOAC x 72 hours preceding procedure.
[2018-06-14] MEDS: HEPARIN - 25,000 UNIT in SODIUM CHLORIDE 495 ML IV SCH (20:10)
[2018-06-14] MEDS: LIDOCAINE PATCH REMOVAL MC SCH (22:51)
[2018-06-15] MEDS ORDERED: DEXTROSE 5%-WATER - 50 ML IVPB ONE ×3 (00:25→20:17)
[2018-06-15] MEDS ORDERED: PIPERACILLIN/TAZOBACTAM 2.25 GM VIAL IVPB ONE ×3 (00:25→20:17)
[2018-06-15] MEDS: HEPARIN - 25,000 UNIT in SODIUM CHLORIDE 495 ML IV SCH ×2 (01:49→20:35)
[2018-06-15] MEDS: PIPERACILLIN/TAZOB 2.25 GM 2.25 GM in DEXTROSE 5%-WATER - 50 ML IVPB SCH ×3 (01:59→20:28)
[2018-06-15] MEDS: TRIMETHOBENZAMIDE HCL 300 MG CAPSULE PO ONE ×2 (02:08→04:20)
[2018-06-15] MEDS ORDERED: PT OWN MED DRAWER 7, Y5N ONE ×7 (04:15→22:55)
[2018-06-15] MEDS: ACETAMINOPHEN 325 MG TABLET (FP) PO PRN ×3 (04:17→20:33)
[2018-06-15] MEDS: busPIRone HCL 10 MG TABLET (FP) PO SCH ×3 (06:43→21:42)
[2018-06-15] MEDS: BANATROL PLUS POWDER PACKET PO SCH ×2 (06:45→15:03)
[2018-06-15] MEDS: LIDOCAINE 5% TOPICAL PATCH TP SCH (10:10)
[2018-06-15] MEDS: CYCLOBENZAPRINE HCL 5 MG TABLET PO PRN ×2 (10:53→21:42)
[2018-06-15] MEDS: AMIODARONE HCL 200 MG TABLET (FP) PO SCH (10:53)
[2018-06-15] MEDS: FOLIC ACID 1 MG TABLET (FP) PO SCH (10:54)
[2018-06-15] MEDS: RANITIDINE HCL 150 MG TABLET (FP) PO SCH ×2 (10:54→21:41)
[2018-06-15] MEDS: VITAMIN B COMP W-C 1 EA TABLET PO SCH (10:55)
[2018-06-15] MEDS: CALCIUM (OYSTER SHELL) 500 MG TABLET (FP) PO SCH ×2 (10:55→16:06)
--- NOTE | 2018-06-15 11:05 | PN ---
Physical Exam: SUBJECTIVE: Patient seen and examined by me at bedside. No acute events overnight Patient reports he slept throughout the night after morphine was given Still complains of back and abdominal pain Plans to have CT of abdomen done, as per surgery Otherwise, denies fevers, chills, chest pain, shortness of breath, urinary symptoms OBJECTIVE: Vital Signs Period Temp Pulse Resp BP Sys/Emery Pulse Ox Last 24 Hr 97.1 F-98 F 65-82 18-22 92-138/51-75 95 GENERAL: The patient is awake, alert, frail looking and fully oriented, in no acute distress. EYES: Sclera anicteric, conjunctiva clear. No ptosis. ENT: Moist mucous membranes. LUNGS: bibasilar fine rales with no wheezing or no accessory muscle use. HEART: Regular rate and rhythm, S1, S2 with (+) JOSIE ABDOMEN: Soft, nontender, nondistended, normoactive bowel sounds (+) vertical incisional scar C/D/I EXTREMITIES: No edema. (+) Stage I ulcer of left heel and second toe SKIN: Warm, dry, normal turgor, no rashes or lesions noted Laboratory Results 06/14/18 06/14/18 06/15/18 12:32 19:50 03:00 PTT (Actin FS) 41.2 H 75.5 H 67.3 H Active Medications Generic Name Dose Route Start Last Admin Trade Name Freq PRN Reason Stop Dose Admin Acetaminophen 650 mg 06/10/18 00:02 06/15/18 08:29 Tylenol - PO 650 mg Q4H PRN Administration HEADACHE Amiodarone HCl 200 mg 06/10/18 10:00 06/15/18 10:53 Cordarone - PO 200 mg DAILY JULIAN Administration Buspirone HCl 10 mg 06/10/18 06:00 06/15/18 06:43 Buspar - PO 10 mg TID JULIAN Administration Calcium Carbonate 500 mg 06/10/18 07:00 06/15/18 10:55 Os-Merlin 500mg - PO 500 mg TIDAC JULIAN Administration Citalopram Hydrobromide 20 mg 06/10/18 10:00 06/14/18 12:37 Celexa - PO 20 mg DAILY JULIAN Administration Collagenase 1 applic 06/10/18 10:00 06/14/18 17:36 Santyl - TP 1 applic DAILY JULIAN Administration Protocol Cyanocobalamin 100 mcg 06/10/18 10:00 06/14/18 12:37 Vitamin B12 - PO 100 mcg DAILY JULIAN Administration Cyclobenzaprine HCl 2.5 mg 06/13/18 12:19 06/15/18 10:53 Cyclobenzaprine Hcl PO 2.5 mg Q12H PRN Administration MUSCLE SPASMS Folic Acid 1 mg 06/10/18 10:00 06/15/18 10:54 Folic Acid - PO 1 mg DAILY JULIAN Administration Heparin Sodium (Porcine) 1,000 unit 06/08/18 23:20 06/14/18 14:00 Heparin - IVPUSH 1,000 unit PRN PRN Administration Heparin Heparin Sodium (Porcine) 5,000 unit 06/08/18 23:20 Heparin - IVPUSH PRN PRN Heparin Piperacillin Sod/Tazobactam 50 mls @ 100 mls/hr 06/08/18 18:00 06/15/18 10:10 Sod 2.25 gm/ Dextrose IVPB 100 mls/hr Q8H-IV JULIAN Administration Protocol Heparin Sodium (Porcine) 25, 500 mls @ 20 mls/hr 06/08/18 23:30 06/15/18 04: 57 000 unit/ Sodium Chloride IV 1,050 unit/hr TITR JULIAN 21 mls/hr Titration Protocol 1,000 UNIT/HR Fluconazole 100 mls @ 100 mls/hr 06/09/18 16:00 06/13/18 15:02 Diflucan 200 Mg/D5w Premixed Ivpb - IVPB 100 mls/hr Q48H JULIAN Administration Levothyroxine Sodium 125 mcg 06/10/18 06:00 06/14/18 06:42 Synthroid - PO 125 mcg DAILY@0600 JULIAN Administration Lidocaine 1 patch 06/12/18 10:00 06/15/18 10:10 Lidoderm Patch - TP 1 patch DAILY JULIAN Administration Midodrine 5 mg 06/08/18 10:00 06/14/18 17:53 Proamatine - PO 5 mg TID-MID JULIAN Administration Miscellaneous 1 each 06/12/18 22:00 06/14/18 22:51 Lidoderm Patch Removal MC 1 each DAILY@2200 JULIAN Administration Multivit/Ca Carb/B Cmplx/FA/Prenat 1 tablet 06/10/18 10:00 06/15/18 10:55 Nephro-Zane - PO 1 tablet DAILY JULIAN Administration Ranitidine HCl 150 mg 06/12/18 10:30 06/15/18 10:54 Zantac - PO 150 mg BID JULIAN Administration ASSESSMENT/PLAN: Patient is a 67 year old male with a PMHx of CAD s/p CABG, Defibrillator ( [employer]), COPD (on 2-3L Home O2), ESRD (On HD // via Right Tunnel Cath), CHF presents from [facility]) with Chest pain. #Loculated Ascites -Paracentesis done with >22469 WBC predominately neutrophils. Fluid analysis revealed SAAG <1.1, with high protein and LDH, Consistent with exudative fluid. This may be from possible obstruction, infection, peritonitis -Continue IV Zosyn 2.25gm Q8H day#7 -CT abdomen with contrast today -Surgery following and will need to call surgeon from [facility], however patient refuses to go to [facility]. Patient clinically stable with no fevers , leukocytosis #Mesentric ischemia s/p right hemicolectomy -Complaints of Abdominal pain today with no vomiting -CT abdomen today -Patient had procedures done at [facility] but refuses to go back there. Would like to have different opinions at this hospital and further management. Spoke to surgeon, Dr. Menon for second opinion but is not currently vision specialist and unable to see patient. Recommended patient to be transferred to [facility] where the procedure happened. -Will attempt to have patient transferred back to [facility] once Dr. Crum speaks to surgeon there #Supratherapeutic INR- Resolved -Continue Heparin Drip for thrombus -Continue to monitor #Back Pain -Lidocaine patch for pain -Flexeril 2.5mg BID PRN #Diarrhea -Possibly infectious vs mechanical. C.Diff negative. Possibly from recent colectomy -Continue to monitor #Filling defect SVC/Left brachiocephalic -Shown on CTA chest report from 05/23/2018 -UE duplex shows right IJ thrombus -Continue Heparin drip and then transition to Eliquis outpatient #Hypotension -Continue Midodrine -Patient with low BP but has improved -Continue to monitor #Chest pain -Likely due to anxiety. 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 -Sodium controlled diet #Prophylaxis -Heparin drip for DVT. -No GI required #Disposition -Full code -Pending call back from surgeon sondra Ceja [id number] Visit type - Emergency Visit Emergency Visit: Yes ED Registration Date: 05/31/18 Care time: The patient presented to the Emergency Department on the above date and was hospitalized for further evaluation of their emergent condition. - New Patient This patient is new to me today: No - Critical Care Critical Care patient: No
--- NOTE | 2018-06-15 13:17 | PN ---
Teaching Attending Note Name of Resident: Mindy Floyd ATTENDING PHYSICIAN STATEMENT I saw and evaluated the patient. I reviewed the resident's note and discussed the case with the resident. I agree with the resident's findings and plan as documented. SUBJECTIVE: Mr Schaeffer says he is feeling better today. Denies cp, sob, n/v OBJECTIVE: Last Vital Signs Temp Pulse Resp BP Pulse Ox 36.3 C L 86 18 96/69 95 06/15/18 14:34 06/15/18 17:05 06/15/18 17:05 06/15/18 17:05 06/14/18 21:00 Gen: nad Pulm: ctab w/o w/r/r CV: rrr w/o m/r/g Abd: +bs, s/nt, distended Ext: no c/c/e CBC, BMP 06/15/18 16:50 ASSESSMENT AND PLAN: (1) Hypotension Assessment/Plan: -continue midodrine -stable Code(s): I95.9 - HYPOTENSION, UNSPECIFIED (2) ESRD (end stage renal disease) Assessment/Plan: -case d/w nephrology -HD tonight Code(s): N18.6 - END STAGE RENAL DISEASE (3) Ascites Assessment/Plan: -case discussed with surgery -will order paracentesis for tomorrow (therapeutic and diagnostic) -also discussing possible transfer to tertiary care center for specialized care Code(s): R18.8 - OTHER ASCITES (4) Supratherapeutic INR Assessment/Plan: -normalized -now on heparin gtt for VTE -will need bridge back to coumadin when planning for discharge Code(s): R79.1 - ABNORMAL COAGULATION PROFILE (5) CAD (coronary artery disease) Assessment/Plan: -quiescent Code(s): I25.10 - ATHSCL HEART DISEASE OF [place] CORONARY ARTERY W/O ANG PCTRS (6) CHF (congestive heart failure) Assessment/Plan: -treating with HD Code(s): I50.9 - HEART FAILURE, UNSPECIFIED Qualifiers: Heart failure chronicity: acute on chronic (7) Hypothyroid Assessment/Plan: -continue synthroid Code(s): E03.9 - HYPOTHYROIDISM, UNSPECIFIED (8) SBP (secondary bacterial peritonitis) Assessment/Plan: -continue zosyn per ID -possible transfer to tertiary care center Code(s): K65.2 - SPONTANEOUS BACTERIAL PERITONITIS (9) Anxiety -continue buspar (10) Anemia -stable Problem List - Problems (1) Hypotension Code(s): I95.9 - HYPOTENSION, UNSPECIFIED (2) ESRD (end stage renal disease) Code(s): N18.6 - END STAGE RENAL DISEASE (3) Ascites Code(s): R18.8 - OTHER ASCITES Qualifiers: Ascites type: other type Qualified Code(s): R18.8 - Other ascites (4) Supratherapeutic INR Code(s): R79.1 - ABNORMAL COAGULATION PROFILE (5) CAD (coronary artery disease) Code(s): I25.10 - ATHSCL HEART DISEASE OF [place] CORONARY ARTERY W/O ANG PCTRS Qualifiers: Coronary Disease-Associated Artery/Lesion type: [place] artery [place] vs. transplanted heart: [place] heart Associated angina: without angina Qualified Code(s): I25.10 - Atherosclerotic heart disease of [place] coronary artery without angina pectoris (6) CHF (congestive heart failure) Code(s): I50.9 - HEART FAILURE, UNSPECIFIED Qualifiers: Heart failure type: unspecified Heart failure chronicity: acute on chronic Qualified Code(s): I50.9 - Heart failure, unspecified (7) Hypothyroid Code(s): E03.9 - HYPOTHYROIDISM, UNSPECIFIED Qualifiers: Hypothyroidism type: unspecified Qualified Code(s): E03.9 - Hypothyroidism , unspecified (8) SBP (spontaneous bacterial peritonitis) Code(s): K65.2 - SPONTANEOUS BACTERIAL PERITONITIS
--- NOTE | 2018-06-15 14:04 | PN ---
Progress Note, Physician History of Present Illness: stable no new issues plan is to transfer him to [facility] - Current Medication List Current Medications: Active Medications Acetaminophen (Tylenol -) 650 mg PO Q4H PRN PRN Reason: HEADACHE Last Admin: 06/15/18 08:29 Dose: 650 mg Amiodarone HCl (Cordarone -) 200 mg PO DAILY [facility] Last Admin: 06/15/18 10:53 Dose: 200 mg Buspirone HCl (Buspar -) 10 mg PO TID [facility] Last Admin: 06/15/18 06:43 Dose: 10 mg Calcium Carbonate (Os-Merlin 500mg -) 500 mg PO TIDAC [facility] Last Admin: 06/15/18 10:55 Dose: 500 mg Citalopram Hydrobromide (Celexa -) 20 mg PO DAILY [facility] Last Admin: 06/14/18 12:37 Dose: 20 mg Collagenase (Santyl -) 1 applic TP DAILY [facility]; Protocol Last Admin: 06/14/18 17:36 Dose: 1 applic Cyanocobalamin (Vitamin B12 -) 100 mcg PO DAILY [facility] Last Admin: 06/14/18 12:37 Dose: 100 mcg Cyclobenzaprine HCl (Cyclobenzaprine Hcl) 2.5 mg PO Q12H PRN PRN Reason: MUSCLE SPASMS Last Admin: 06/15/18 10:53 Dose: 2.5 mg Folic Acid (Folic Acid -) 1 mg PO DAILY [facility] Last Admin: 06/15/18 10:54 Dose: 1 mg Heparin Sodium (Porcine) (Heparin -) 1,000 unit IVPUSH PRN PRN PRN Reason: Heparin Last Admin: 06/14/18 14:00 Dose: 1,000 unit Heparin Sodium (Porcine) (Heparin -) 5,000 unit IVPUSH PRN PRN PRN Reason: Heparin Piperacillin Sod/Tazobactam (Sod 2.25 gm/ Dextrose) 50 mls @ 100 mls/hr IVPB Q8H-IV JULIAN; Protocol Last Admin: 06/15/18 10:10 Dose: 100 mls/hr Heparin Sodium (Porcine) 25, (000 unit/ Sodium Chloride) 500 mls @ 20 mls/hr IV TITR JULIAN; Protocol Last Titration: 06/15/18 04:57 Dose: 1,050 unit/hr, 21 mls/hr Fluconazole (Diflucan 200 Mg/D5w Premixed Ivpb -) 100 mls @ 100 mls/hr IVPB Q48H [facility] Last Admin: 06/13/18 15:02 Dose: 100 mls/hr Levothyroxine Sodium (Synthroid -) 125 mcg PO DAILY@0600 [facility] Last Admin: 06/14/18 06:42 Dose: 125 mcg Lidocaine (Lidoderm Patch -) 1 patch TP DAILY [facility] Last Admin: 06/15/18 10:10 Dose: 1 patch Midodrine (Proamatine -) 5 mg PO TID-MID [facility] Last Admin: 06/14/18 17:53 Dose: 5 mg Miscellaneous (Lidoderm Patch Removal) 1 each MC DAILY@2200 [facility] Last Admin: 06/14/18 22:51 Dose: 1 each Multivit/Ca Carb/B Cmplx/FA/Prenat (Nephro-Zane -) 1 tablet PO DAILY [facility] Last Admin: 06/15/18 10:55 Dose: 1 tablet Ranitidine HCl (Zantac -) 150 mg PO BID [facility] Last Admin: 06/15/18 10:54 Dose: 150 mg - Objective Vital Signs: Vital Signs Temperature 98 F 06/15/18 10:00 Pulse Rate 82 06/15/18 10:00 Respiratory Rate 18 06/15/18 10:00 Blood Pressure 138/75 06/15/18 10:00 O2 Sat by Pulse Oximetry (%) 95 06/14/18 21:00 Constitutional: Yes: No Distress, Calm Cardiovascular: Yes: S1, S2 Respiratory: Yes: Regular, CTA Bilaterally Gastrointestinal: Yes: Soft, Ascites Musculoskeletal: Yes: WNL Extremities: Yes: Other Wound/Incision: Yes: Dressing Dry and Intact Neurological: Yes: Alert, Oriented Labs: CBC, BMP 06/14/18 06:15 06/14/18 06:15 INR, PTT INR 1.31 (0.83-1.09) H 06/09/18 06:20 Assessment/Plan ASSESSMENT AND PLAN: (1) Hypotension Code(s): I95.9 - HYPOTENSION, UNSPECIFIED (2) ESRD (end stage renal disease) Code(s): N18.6 - END STAGE RENAL DISEASE (3) Ascites Code(s): R18.8 - OTHER ASCITES (4) Supratherapeutic INR Code(s): R79.1 - ABNORMAL COAGULATION PROFILE (5) CAD (coronary artery disease) Code(s): I25.10 - ATHSCL HEART DISEASE OF [place] CORONARY ARTERY W/O ANG PCTRS (6) CHF (congestive heart failure) Code(s): I50.9 - HEART FAILURE, UNSPECIFIED Qualifiers: Heart failure chronicity: acute on chronic (7) Hypothyroid Code(s): E03.9 - HYPOTHYROIDISM, UNSPECIFIED (8) SBP (secondary bacterial peritonitis) Code(s): K65.2 - SPONTANEOUS BACTERIAL PERITONITIS (9) Anxiety -consult psychiatry 10 b/l heel ulcer plan continue abx plan for transfer rest as per the team dialysis
[2018-06-15] MEDS: CYANOCOBALAMIN (VITAMIN B-12) 100 MCG TABLET PO SCH (15:02)
[2018-06-15] MEDS: MIDODRINE HCL 2.5 MG TABLET PO SCH ×3 (16:07→20:27)
--- NOTE | 2018-06-15 16:17 | PN ---
Progress Note, Physician History of Present Illness: Pt seen and examined at bedside. He went for CT scan. He does feel short of breath. - Current Medication List Current Medications: Active Medications Acetaminophen (Tylenol -) 650 mg PO Q4H PRN PRN Reason: HEADACHE Last Admin: 06/15/18 08:29 Dose: 650 mg Albumin Human (Albumin Human 25%) 12.5 gm IVPB Q30M [facility] Amiodarone HCl (Cordarone -) 200 mg PO DAILY [facility] Last Admin: 06/15/18 10:53 Dose: 200 mg Buspirone HCl (Buspar -) 10 mg PO TID [facility] Last Admin: 06/15/18 16:09 Dose: 10 mg Calcium Carbonate (Os-Merlin 500mg -) 500 mg PO TIDAC [facility] Last Admin: 06/15/18 16:06 Dose: 500 mg Citalopram Hydrobromide (Celexa -) 20 mg PO DAILY [facility] Last Admin: 06/14/18 12:37 Dose: 20 mg Collagenase (Santyl -) 1 applic TP DAILY [facility]; Protocol Last Admin: 06/14/18 17:36 Dose: 1 applic Cyanocobalamin (Vitamin B12 -) 100 mcg PO DAILY [facility] Last Admin: 06/15/18 15:02 Dose: 100 mcg Cyclobenzaprine HCl (Cyclobenzaprine Hcl) 2.5 mg PO Q12H PRN PRN Reason: MUSCLE SPASMS Last Admin: 06/15/18 10:53 Dose: 2.5 mg Epoetin Josemanuel (Epogen -) 10,000 unit IVPUSH ONCE ONE Stop: 06/15/18 16:13 Folic Acid (Folic Acid -) 1 mg PO DAILY [facility] Last Admin: 06/15/18 10:54 Dose: 1 mg Heparin Sodium (Porcine) (Heparin -) 1,000 unit IVPUSH PRN PRN PRN Reason: Heparin Last Admin: 06/14/18 14:00 Dose: 1,000 unit Heparin Sodium (Porcine) (Heparin -) 5,000 unit IVPUSH PRN PRN PRN Reason: Heparin Heparin Sodium (Porcine) 25, (000 unit/ Sodium Chloride) 500 mls @ 20 mls/hr IV TITR JULIAN; Protocol Last Titration: 06/15/18 04:57 Dose: 1,050 unit/hr, 21 mls/hr Fluconazole (Diflucan 200 Mg/D5w Premixed Ivpb -) 100 mls @ 100 mls/hr IVPB Q48H [facility] Last Admin: 06/13/18 15:02 Dose: 100 mls/hr Piperacillin Sod/Tazobactam (Sod 2.25 gm/ Dextrose) 50 mls @ 100 mls/hr IVPB Q8H-IV JULIAN Sodium Chloride (Normal Saline -) 250 mls @ 3,000 mls/hr IV PRN PRN PRN Reason: Hypotension during Dialysis Stop: 06/16/18 16:12 Levothyroxine Sodium (Synthroid -) 125 mcg PO DAILY@0600 [facility] Last Admin: 06/14/18 06:42 Dose: 125 mcg Lidocaine (Lidoderm Patch -) 1 patch TP DAILY [facility] Last Admin: 06/15/18 10:10 Dose: 1 patch Midodrine (Proamatine -) 5 mg PO TID-MID [facility] Last Admin: 06/15/18 16:08 Dose: 5 mg Miscellaneous (Lidoderm Patch Removal) 1 each MC DAILY@2200 [facility] Last Admin: 06/14/18 22:51 Dose: 1 each Multivit/Ca Carb/B Cmplx/FA/Prenat (Nephro-Zane -) 1 tablet PO DAILY [facility] Last Admin: 06/15/18 10:55 Dose: 1 tablet Ranitidine HCl (Zantac -) 150 mg PO BID [facility] Last Admin: 06/15/18 10:54 Dose: 150 mg - Objective Vital Signs: Vital Signs Temperature 97.4 F L 06/15/18 14:34 Pulse Rate 77 06/15/18 14:34 Respiratory Rate 18 06/15/18 14:34 Blood Pressure 129/61 06/15/18 14:34 O2 Sat by Pulse Oximetry (%) 95 06/14/18 21:00 Constitutional: Yes: Calm Eyes: Yes: Conjunctiva Clear HENT: Yes: Atraumatic Cardiovascular: Yes: S1, S2 Respiratory: Yes: On Nasal O2, Rhonchi Gastrointestinal: Yes: Ascites Musculoskeletal: Yes: Muscle Weakness Edema: LLE: Trace, RLE: Trace Neurological: Yes: Oriented Psychiatric: Yes: Oriented Labs: CBC, BMP 06/14/18 06:15 06/14/18 06:15 INR, PTT INR 1.31 (0.83-1.09) H 06/09/18 06:20 Problem List - Problems (1) ESRD (end stage renal disease) Code(s): N18.6 - END STAGE RENAL DISEASE Assessment/Plan Current Medications Generic Name Dose Route Start Last Admin Trade Name Freq PRN Reason Stop Dose Admin Acetaminophen 650 mg 06/10/18 00:02 06/15/18 08:29 Tylenol - PO 650 mg Q4H PRN Administration HEADACHE Albumin Human 12.5 gm 06/15/18 16:15 Albumin Human 25% IVPB Q30M [facility] Amiodarone HCl 200 mg 06/10/18 10:00 06/15/18 10:53 Cordarone - PO 200 mg DAILY JULIAN Administration Buspirone HCl 10 mg 06/10/18 06:00 06/15/18 16:09 Buspar - PO 10 mg TID JULIAN Administration Calcium Carbonate 500 mg 06/10/18 07:00 06/15/18 16:06 Os-Merlin 500mg - PO 500 mg TIDAC JULIAN Administration Citalopram Hydrobromide 20 mg 06/10/18 10:00 06/14/18 12:37 Celexa - PO 20 mg DAILY JULIAN Administration Collagenase 1 applic 06/10/18 10:00 06/14/18 17:36 Santyl - TP 1 applic DAILY JULIAN Administration Protocol Cyanocobalamin 100 mcg 06/10/18 10:00 06/15/18 15:02 Vitamin B12 - PO 100 mcg DAILY JULIAN Administration Cyclobenzaprine HCl 2.5 mg 06/13/18 12:19 06/15/18 10:53 Cyclobenzaprine Hcl PO 2.5 mg Q12H PRN Administration MUSCLE SPASMS Epoetin Josemanuel 10,000 unit 06/15/18 16:12 Epogen - IVPUSH 06/15/18 16:13 ONCE ONE Folic Acid 1 mg 06/10/18 10:00 06/15/18 10:54 Folic Acid - PO 1 mg DAILY JULIAN Administration Heparin Sodium (Porcine) 1,000 unit 06/08/18 23:20 06/14/18 14:00 Heparin - IVPUSH 1,000 unit PRN PRN Administration Heparin Heparin Sodium (Porcine) 5,000 unit 06/08/18 23:20 Heparin - IVPUSH PRN PRN Heparin Heparin Sodium (Porcine) 25, 500 mls @ 20 mls/hr 06/08/18 23:30 06/15/18 04: 57 000 unit/ Sodium Chloride IV 1,050 unit/hr TITR JULIAN 21 mls/hr Titration Protocol 1,000 UNIT/HR Fluconazole 100 mls @ 100 mls/hr 06/09/18 16:00 06/13/18 15:02 Diflucan 200 Mg/D5w Premixed Ivpb - IVPB 100 mls/hr Q48H JULIAN Administration Piperacillin Sod/Tazobactam 50 mls @ 100 mls/hr 06/15/18 18:00 Sod 2.25 gm/ Dextrose IVPB Q8H-IV JULIAN Sodium Chloride 250 mls @ 3,000 mls/hr 06/15/18 16:12 Normal Saline - IV 06/16/18 16:12 PRN PRN Hypotension during Dialysis Levothyroxine Sodium 125 mcg 06/10/18 06:00 06/14/18 06:42 Synthroid - PO 125 mcg DAILY@0600 JULIAN Administration Lidocaine 1 patch 06/12/18 10:00 06/15/18 10:10 Lidoderm Patch - TP 1 patch DAILY JULIAN Administration Midodrine 5 mg 06/08/18 10:00 06/15/18 16:08 Proamatine - PO 5 mg TID-MID JULIAN Administration Miscellaneous 1 each 06/12/18 22:00 06/14/18 22:51 Lidoderm Patch Removal MC 1 each DAILY@2200 JULIAN Administration Multivit/Ca Carb/B Cmplx/FA/Prenat 1 tablet 06/10/18 10:00 06/15/18 10:55 Nephro-Zane - PO 1 tablet DAILY JULIAN Administration Ranitidine HCl 150 mg 06/12/18 10:30 06/15/18 10:54 Zantac - PO 150 mg BID JULIAN Administration Impression 1. ESRD 2. CAD 3. CABG 4. COPD 5. CHF 6. SBP 7. DVT 8. hx mesinteric ischemia 9. hypothyroidism 10. gout 11. hld 12. pleural effusion 13. anemia 14. abd pain Plan - will arrange for HD today - surgery follow up - GI follow up - will need fistula once medically stable - will follow Dr Jones
--- NOTE | 2018-06-15 16:41 | PN ---
Progress Note (short form) - Note Progress Note: - Note Progress Note: s: no cp sob palps dizzy. o: Vital Signs Period Temp Pulse Resp BP Sys/Emrey Pulse Ox Last 24 Hr 97.1 F-98 F 77-82 18-20 92-138/51-75 95 Constitutional: Yes: Well Nourished, No Distress, Calm Eyes: Yes: Conjunctiva Clear HENT: Yes: Atraumatic, Normocephalic Neck: Yes: Supple, Trachea Midline Respiratory: Yes: cta bl nl eff Gastrointestinal: Yes: Normal Bowel Sounds, Soft Cardiovascular: Yes: Regular Rate and Rhythm JVD: No Carotid Bruit: No PMI: Non-Displaced Heart Sounds: Yes: S1, S2 Musculoskeletal: No: Back Pain Extremities: No: Cold Edema: trace Peripheral Pulses: 2+ Left Doralis Pedis, 2+ Right Dorsalis Pedis Integumentary: No: Jaundice Neurological: Yes: Alert, Oriented Current Medications Acetaminophen (Tylenol -) 650 mg PO Q4H PRN PRN Reason: HEADACHE Last Admin: 06/14/18 06:42 Dose: 650 mg Amiodarone HCl (Cordarone -) 200 mg PO DAILY [facility] Last Admin: 06/13/18 14:30 Dose: 200 mg Buspirone HCl (Buspar -) 10 mg PO TID [facility] Last Admin: 06/14/18 06:42 Dose: 10 mg Calcium Carbonate (Os-Merlin 500mg -) 500 mg PO TIDAC [facility] Last Admin: 06/14/18 06:42 Dose: 500 mg Citalopram Hydrobromide (Celexa -) 20 mg PO DAILY [facility] Last Admin: 06/13/18 14:31 Dose: 20 mg Collagenase (Santyl -) 1 applic TP DAILY [facility]; Protocol Last Admin: 06/13/18 19:34 Dose: Not Given Cyanocobalamin (Vitamin B12 -) 100 mcg PO DAILY [facility] Last Admin: 06/13/18 14:31 Dose: 100 mcg Cyclobenzaprine HCl (Cyclobenzaprine Hcl) 2.5 mg PO Q12H PRN PRN Reason: MUSCLE SPASMS Last Admin: 06/14/18 02:25 Dose: 2.5 mg Folic Acid (Folic Acid -) 1 mg PO DAILY [facility] Last Admin: 06/13/18 14:31 Dose: 1 mg Heparin Sodium (Porcine) (Heparin -) 1,000 unit IVPUSH PRN PRN PRN Reason: Heparin Heparin Sodium (Porcine) (Heparin -) 5,000 unit IVPUSH PRN PRN PRN Reason: Heparin Piperacillin Sod/Tazobactam (Sod 2.25 gm/ Dextrose) 50 mls @ 100 mls/hr IVPB Q8H-IV [facility]; Protocol Last Admin: 06/14/18 01:53 Dose: 100 mls/hr Heparin Sodium (Porcine) 25, (000 unit/ Sodium Chloride) 500 mls @ 20 mls/hr IV TITR [facility]; Protocol Last Titration: 06/14/18 08:56 Dose: 950 unit/hr, 19 mls/hr Fluconazole (Diflucan 200 Mg/D5w Premixed Ivpb -) 100 mls @ 100 mls/hr IVPB Q48H [facility] Last Admin: 06/13/18 15:02 Dose: 100 mls/hr Levothyroxine Sodium (Synthroid -) 125 mcg PO DAILY@0600 [facility] Last Admin: 06/14/18 06:42 Dose: 125 mcg Lidocaine (Lidoderm Patch -) 1 patch TP DAILY [facility] Last Admin: 06/13/18 09:14 Dose: 1 patch Midodrine (Proamatine -) 5 mg PO TID-MID [facility] Last Admin: 06/13/18 18:26 Dose: 5 mg Miscellaneous (Lidoderm Patch Removal) 1 each MC DAILY@2200 [facility] Last Admin: 06/13/18 21:25 Dose: 1 each Multivit/Ca Carb/B Cmplx/FA/Prenat (Nephro-Zane -) 1 tablet PO DAILY [facility] Last Admin: 06/13/18 14:30 Dose: 1 tablet Ranitidine HCl (Zantac -) 150 mg PO BID [facility] Last Admin: 06/13/18 21:24 Dose: 150 mg Assessment/Plan echo 05/2018 nl LV size, mildly reduced function EF 45-50%, mild global hypokinesis of LV, nl RV, ppm lead in RV and RA, tr TR EKG: sinus, prolonged QTC, old septal infarct Shortness of breath - trop neg x 3 - also with COPD hx, on chronic O2 - after hd pt feeling better, no sob acute on chronic systolic HF - mildly reduced EF on echo - appeared volume up as above on admit - volume management per renal, sob resolved after HD - not on DELANO/BB due to low BP Prolonged QTc - avoid QT prolonging agents - maintain K >4, Mg >2 s/p ICD (FAGUO) - outpatient follow up, Dr. Stover - recent device checks unremarkable per patient - cont amiodarone hypotension - continue midodrine ESRD on HD - renal consulted CAD, s/p CABG - cont statin - holding aspirin, elevated INR and anemia mesenteric ischemia - recent dx, s/p surgery during recent admission for hip fx anemia - manage per primary ascites: -GI, ID, surgery following, on abx. manage per primary Right IJ dvt: -plans per vascular, on hep gtt
[2018-06-15] MEDS: FLUCONAZOLE 200 MG/D5W 100 ML IVPB SCH (17:15)
--- NOTE | 2018-06-15 17:20 | PN ---
Progress Note, Physician History of Present Illness: no new issues stable being dialysed plan is for repeat tap - Current Medication List Current Medications: Active Medications Acetaminophen (Tylenol -) 650 mg PO Q4H PRN PRN Reason: HEADACHE Last Admin: 06/15/18 08:29 Dose: 650 mg Albumin Human (Albumin Human 25%) 12.5 gm IVPB Q30M [facility] Amiodarone HCl (Cordarone -) 200 mg PO DAILY [facility] Last Admin: 06/15/18 10:53 Dose: 200 mg Buspirone HCl (Buspar -) 10 mg PO TID [facility] Last Admin: 06/15/18 16:09 Dose: 10 mg Calcium Carbonate (Os-Merlin 500mg -) 500 mg PO TIDAC [facility] Last Admin: 06/15/18 16:06 Dose: 500 mg Citalopram Hydrobromide (Celexa -) 20 mg PO DAILY [facility] Last Admin: 06/14/18 12:37 Dose: 20 mg Collagenase (Santyl -) 1 applic TP DAILY [facility]; Protocol Last Admin: 06/14/18 17:36 Dose: 1 applic Cyanocobalamin (Vitamin B12 -) 100 mcg PO DAILY [facility] Last Admin: 06/15/18 15:02 Dose: 100 mcg Cyclobenzaprine HCl (Cyclobenzaprine Hcl) 2.5 mg PO Q12H PRN PRN Reason: MUSCLE SPASMS Last Admin: 06/15/18 10:53 Dose: 2.5 mg Epoetin Josemanuel (Epogen -) 10,000 unit IVPUSH ONCE ONE Stop: 06/15/18 16:13 Folic Acid (Folic Acid -) 1 mg PO DAILY [facility] Last Admin: 06/15/18 10:54 Dose: 1 mg Heparin Sodium (Porcine) (Heparin -) 1,000 unit IVPUSH PRN PRN PRN Reason: Heparin Last Admin: 06/14/18 14:00 Dose: 1,000 unit Heparin Sodium (Porcine) (Heparin -) 5,000 unit IVPUSH PRN PRN PRN Reason: Heparin Heparin Sodium (Porcine) 25, (000 unit/ Sodium Chloride) 500 mls @ 20 mls/hr IV TITR [facility]; Protocol Last Titration: 06/15/18 04:57 Dose: 1,050 unit/hr, 21 mls/hr Piperacillin Sod/Tazobactam (Sod 2.25 gm/ Dextrose) 50 mls @ 100 mls/hr IVPB Q8H-IV [facility] Sodium Chloride (Normal Saline -) 250 mls @ 3,000 mls/hr IV PRN PRN PRN Reason: Hypotension during Dialysis Stop: 06/16/18 16:12 Levothyroxine Sodium (Synthroid -) 125 mcg PO DAILY@0600 [facility] Last Admin: 06/14/18 06:42 Dose: 125 mcg Lidocaine (Lidoderm Patch -) 1 patch TP DAILY [facility] Last Admin: 06/15/18 10:10 Dose: 1 patch Midodrine (Proamatine -) 5 mg PO TID-MID [facility] Last Admin: 06/15/18 16:08 Dose: 5 mg Miscellaneous (Lidoderm Patch Removal) 1 each MC DAILY@2200 [facility] Last Admin: 06/14/18 22:51 Dose: 1 each Multivit/Ca Carb/B Cmplx/FA/Prenat (Nephro-Zane -) 1 tablet PO DAILY [facility] Last Admin: 06/15/18 10:55 Dose: 1 tablet Ranitidine HCl (Zantac -) 150 mg PO BID [facility] Last Admin: 06/15/18 10:54 Dose: 150 mg - Objective Vital Signs: Vital Signs Temperature 97.4 F L 06/15/18 14:34 Pulse Rate 86 06/15/18 17:05 Respiratory Rate 18 06/15/18 17:05 Blood Pressure 96/69 06/15/18 17:05 O2 Sat by Pulse Oximetry (%) 95 06/14/18 21:00 Constitutional: Yes: No Distress, Calm Cardiovascular: Yes: Regular Rate and Rhythm Respiratory: Yes: Regular, CTA Bilaterally Gastrointestinal: Yes: Normal Bowel Sounds, Soft, Ascites Musculoskeletal: Yes: WNL Extremities: Yes: WNL Neurological: Yes: Alert, Oriented Psychiatric: Yes: Alert, Oriented Labs: CBC, BMP 06/14/18 06:15 06/14/18 06:15 INR, PTT INR 1.31 (0.83-1.09) H 06/09/18 06:20 Assessment/Plan ASSESSMENT AND PLAN: (1) Hypotension Code(s): I95.9 - HYPOTENSION, UNSPECIFIED (2) ESRD (end stage renal disease) Code(s): N18.6 - END STAGE RENAL DISEASE (3) Ascites Code(s): R18.8 - OTHER ASCITES (4) Supratherapeutic INR Code(s): R79.1 - ABNORMAL COAGULATION PROFILE (5) CAD (coronary artery disease) Code(s): I25.10 - ATHSCL HEART DISEASE OF [place] CORONARY ARTERY W/O ANG PCTRS (6) CHF (congestive heart failure) Code(s): I50.9 - HEART FAILURE, UNSPECIFIED Qualifiers: Heart failure chronicity: acute on chronic (7) Hypothyroid Code(s): E03.9 - HYPOTHYROIDISM, UNSPECIFIED (8) SBP (secondary bacterial peritonitis) Code(s): K65.2 - SPONTANEOUS BACTERIAL PERITONITIS (9) Anxiety -consult psychiatry 10 b/l heel ulcer as far as i think i am worried is there any leak from the gi tract a small leak as the collection poly microbial from the last time as far as i know had 2 0rganism and patient has loculated effusions plan continue abx for now will see what tap shows rest continue current mgmt
[2018-06-15 17:54] LABS: BASO % 0.9 % (0-2.0); EOS % 1.3 % (0-4.5); HEMOGLOBIN 10.4 GM/dL (11.7-16.9); LYMPH % 13.5 % (8-40); MCHC 32.4 g/dl (32.0-35.9); MEAN CELL VOLUME 98.9 fl (80-96); MEAN PLT VOLUME 8.4 fl (7.5-11.1); MONO % 8.6 % (3.8-10.2); NEUT % 75.7 % (42.8-82.8); PLATELET COUNT 132 K/MM3 (134-434); RBC 3.24 M/mm3 (4.00-5.60); WHITE BLOOD COUNT 5.6 K/mm3 (4.0-10.0)
[2018-06-15] MEDS ORDERED: SODIUM CHLORIDE 250 ML IV PRN (18:03)
[2018-06-15] MEDS: ALBUMIN HUMAN 25% 12.5 GM/50 ML VIAL IVPB SCH ×4 (18:15→19:45)
[2018-06-15] MEDS ORDERED: EPOETIN ALFA 10,000 UNIT/1 ML VIAL IVPUSH ONE (18:15)
--- NOTE | 2018-06-15 18:31 | PN ---
Progress Note (short form) - Note Progress Note: Pt off floor at dialysis - not seen or examined at this time. CT abd/pelvis reviewed - contrast through to rectum, no obstructive signs, increased ascites surrounding bowels, same/similar few locules of air in LUQ in ascites, no contrast extravasation pt's discomfort likely related to increase in ascites he was hungry earlier and diet resumed, reportedly tolerated agree with repeat attempt at paracentesis for 1-2 L of fluid off - will need to hold heparin drip for few hours prior to procedure discussed with Dr. Pink - primary team to arrange tomorrow Problem List - Problems (1) Ascites Code(s): R18.8 - OTHER ASCITES Qualifiers: Ascites type: other type Qualified Code(s): R18.8 - Other ascites (2) S/P partial colectomy Code(s): Z90.49 - ACQUIRED ABSENCE OF OTHER SPECIFIED PARTS OF DIGESTIVE TRACT (3) S/P small bowel resection Code(s): Z90.49 - ACQUIRED ABSENCE OF OTHER SPECIFIED PARTS OF DIGESTIVE TRACT (4) Supratherapeutic INR Code(s): R79.1 - ABNORMAL COAGULATION PROFILE (5) CAD (coronary artery disease) Code(s): I25.10 - ATHSCL HEART DISEASE OF [place] CORONARY ARTERY W/O ANG PCTRS Qualifiers: Coronary Disease-Associated Artery/Lesion type: [place] artery [place] vs. transplanted heart: craig heart Associated angina: without angina Qualified Code(s): I25.10 - Atherosclerotic heart disease of [place] coronary artery without angina pectoris (6) CHF (congestive heart failure) Code(s): I50.9 - HEART FAILURE, UNSPECIFIED Qualifiers: Heart failure type: unspecified Heart failure chronicity: acute on chronic Qualified Code(s): I50.9 - Heart failure, unspecified (7) ESRD (end stage renal disease) Code(s): N18.6 - END STAGE RENAL DISEASE (8) Hypothyroid Code(s): E03.9 - HYPOTHYROIDISM, UNSPECIFIED Qualifiers: Hypothyroidism type: unspecified Qualified Code(s): E03.9 - Hypothyroidism , unspecified
[2018-06-15 18:41] LABS: INR 1.26 (0.83-1.09); PROTHROMBIN TIME (PATIENT) 14.9 SEC (9.7-13.0)
[2018-06-15] MEDS: COLLAGENASE CLOSTRIDIUM HIST. 30 GRAMS TUBE TP SCH (18:42)
--- NOTE | 2018-06-15 19:04 | DS ---
Physical Exam: SUBJECTIVE: Patient seen and examined by me at bedside. No acute events overnight Patient reports he slept throughout the night after morphine was given Still complains of back and abdominal pain Plans to have CT of abdomen done, as per surgery Otherwise, denies fevers, chills, chest pain, shortness of breath, urinary symptoms OBJECTIVE: Vital Signs Period Temp Pulse Resp BP Sys/Emery Pulse Ox Last 24 Hr 97.4 F-98 F 65-86 18-20 91-138/51-91 95 PHYSICAL EXAM GENERAL: The patient is awake, alert, frail looking and fully oriented, in no acute distress. EYES: Sclera anicteric, conjunctiva clear. No ptosis. ENT: Moist mucous membranes. LUNGS: bibasilar fine rales with no wheezing or no accessory muscle use. HEART: Regular rate and rhythm, S1, S2 with (+) JOSIE ABDOMEN: Soft, nontender, nondistended, normoactive bowel sounds (+) vertical incisional scar C/D/I EXTREMITIES: No edema. (+) Stage I ulcer of left heel and second toe SKIN: Warm, dry, normal turgor, no rashes or lesions noted LABS Laboratory Results - last 24 hr 06/14/18 06/15/18 06/15/18 19:50 03:00 16:50 WBC 5.6 RBC 3.24 L Hgb 10.4 L Hct 32.0 L MCV 98.9 H MCH 32.0 MCHC 32.4 RDW 27.0 H Plt Count 132 L MPV 8.4 Absolute Neuts (auto) 4.2 Neutrophils % 75.7 Lymphocytes % 13.5 Monocytes % 8.6 Eosinophils % 1.3 Basophils % 0.9 Nucleated RBC % 0 PT with INR INR PTT (Actin FS) 75.5 H 67.3 H Sodium Potassium Chloride Carbon Dioxide Anion Gap BUN Creatinine Creat Clearance w eGFR Random Glucose Calcium 06/15/18 06/15/18 16:50 16:50 WBC RBC Hgb Hct MCV MCH MCHC RDW Plt Count MPV Absolute Neuts (auto) Neutrophils % Lymphocytes % Monocytes % Eosinophils % Basophils % Nucleated RBC % PT with INR 14.90 H INR 1.26 H PTT (Actin FS) Sodium Cancelled Potassium Cancelled Chloride Cancelled Carbon Dioxide Cancelled Anion Gap Cancelled BUN Cancelled Creatinine Cancelled Creat Clearance w eGFR Cancelled Random Glucose Cancelled Calcium Cancelled HOSPITAL COURSE: Patient is a 67 y/o F with PMHx of CAD s/p CABG, Defibrillator ([employer]), COPD (on 2-3L Home O2), ESRD (On HD // via Right Tunnel Cath) , systolic CHF who presented from [facility] for chest pain and shortness of breath. Said it was an anxiety component. Cardiac work up negative for ACS but echo revealed mildly reduced function EF 45-50%, mild global hypokinesis of LV, nl RV, ppm lead in RV and RA, tr TR but was not in acute CHF exacerbation. EKG: sinus, prolonged QTC (544), old septal infarct Patient was found to have a distended abdomen with an incisional scar. Looked through his surgical record. In Summary of prior hospitalization at [facility] 04/26/2018 with R-intertrochanteric hip fx s/p ORIF complicated by mesenteric ischemia. He had an ex-lap with SBP (~55cm jejunum with extended R- hemicollectomy and 19cm ileum resected). He was discharged to [facility] 05/08/2018 on NOAC. He syncopized on 05/12 and had his AICD interrogated which had no documented significant issues. At that visit he was noted to be anemic and was transfused 2 PRBC at HD. Discharged back to rehab on 05/17. On 05/23/18 to 05/29/18 he was admitted for a third time to [facility] due to SOB/nausea at HD and was treated for SOB 2/2 fluid overload and SBP. That hospitalization he is documented as having a lactic acidosis. Echo done which revealed moderate global hypokinesis. He had imaging done showing free intraperitoneal fluid which grew out Klebsiella oxytoca and he was discharged on PO cipro/flagyl ( total of 14 days abx recommended). He had repeated bouts of hypotension documented; his antihypertensives were DCd and he was started on midodrine 5 TID prior to being sent back to [facility] on 05/29 Patient was found to have abdominal pain, back pain with abdominal distention. U/S and CT revealed Ascites with Paracentesis done and revealing WBC 69k, predominately neutrophils, exudative picture, concerning for peritonitis. Started him on Zosyn, renally dosed. Patient did not have a septic picture and was clinically stable. However, in the last three days, patient complains of worsening back pain, stomach pain and had episodes of vomiting. However, no leukocytosis or fevers. reviewed op notes by Surgeon and called surgeon from [facility] and spoke with Dr. Deirdre Soliman pt had damage control laparotomy 04/28 with resection of portion of jejunum and right colon and transverse colon and all of omentum, with surgicel and packing in upper quadrants and abdominal wound VAC. 04/30 was returned to OR for washout and anastomoses - additional length of terminal ileum was taken to facilitate tension free anastomosis with left colon/splenic flexure, and jejunojejunal anastomosis performed as well Symptoms and clinical presentation here quite similar to that here on 05/31 - without clinical picture of peritonitis He is only 6 weeks out from above operations, and surgery now would be difficult with risks including significant adhesions, bowel injury, possible need for ostomy and potential for wound complications, in addition to his underlying comorbidities CT abdomen repeated (06/15/17) revealed large volume ascites with a small amount of air identified in the left upper quadrant. Underlying infections to be excluded. if still with large volume of ascites, even loculated, would consider reattempting IR/US-guided paracentesis to remove more fluid, especially if more accessible area can be identified Patient accepted by Dr. Solomon, surgical attending Date of Admission:05/31/18 Date of Discharge: 06/15/18 Minutes to complete discharge: 45 Discharge Summary Reason For Visit: CHEST PAIN Current Active Problems Ascites (Acute) CAD (coronary artery disease) (Acute) CHF (congestive heart failure) (Acute) Chest pain (Acute) ESRD (end stage renal disease) (Acute) Hypotension (Acute) Hypothyroid (Acute) S/P partial colectomy (Acute) S/P small bowel resection (Acute) SBP (spontaneous bacterial peritonitis) (Acute) Supratherapeutic INR (Acute) Condition: Guarded - Instructions Diet, Activity, Other Instructions: -You were seen here for chest pain and shortness of breath. You were started on anti anxiery medication with relief of symptoms. However, your abdomen was distended and CT revealed a collection of fluid in the abdomen. When fluid was collected it was found to be infected and therefore started you on antibiotics. You might need to have another abdominal procedure to further evaluate. Patient is a 67 y/o F with PMHx of CAD s/p CABG, Defibrillator ([employer]), COPD (on 2-3L Home O2), ESRD (On HD // via Right Tunnel Cath) , systolic CHF who presented from [facility] for chest pain and shortness of breath. Said it was an anxiety component. Cardiac work up negative for ACS but echo revealed mildly reduced function EF 45-50%, mild global hypokinesis of LV, nl RV, ppm lead in RV and RA, tr TR but was not in acute CHF exacerbation. EKG: sinus, prolonged QTC (544), old septal infarct Patient was found to have a distended abdomen with an incisional scar. Looked through his surgical record. In Summary of prior hospitalization at [facility] 04/26/2018 with R-intertrochanteric hip fx s/p ORIF complicated by mesenteric ischemia. He had an ex-lap with SBP (~55cm jejunum with extended R- hemicollectomy and 19cm ileum resected). He was discharged to [facility] 05/08/2018 on NOAC. He syncopized on 05/12 and had his AICD interrogated which had no documented significant issues. At that visit he was noted to be anemic and was transfused 2 PRBC at HD. Discharged back to rehab on 05/17. On 05/23/18 to 05/29/18 he was admitted for a third time to [facility] due to SOB/nausea at HD and was treated for SOB 2/2 fluid overload and SBP. That hospitalization he is documented as having a lactic acidosis. Echo done which revealed moderate global hypokinesis. He had imaging done showing free intraperitoneal fluid which grew out Klebsiella oxytoca and he was discharged on PO cipro/flagyl ( total of 14 days abx recommended). He had repeated bouts of hypotension documented; his antihypertensives were DCd and he was started on midodrine 5 TID prior to being sent back to [facility] on 05/29 Patient was found to have abdominal pain, back pain with abdominal distention. U/S and CT revealed Ascites with Paracentesis done and revealing WBC 69k, predominately neutrophils, exudative picture, concerning for peritonitis. Started him on Zosyn, renally dosed. Patient did not have a septic picture and was clinically stable. However, in the last three days, patient complains of worsening back pain, stomach pain and had episodes of vomiting. However, no leukocytosis or fevers. reviewed op notes by Surgeon and called surgeon from [facility] and spoke with Dr. Deirdre Soliman pt had damage control laparotomy 04/28 with resection of portion of jejunum and right colon and transverse colon and all of omentum, with surgicel and packing in upper quadrants and abdominal wound VAC. 04/30 was returned to OR for washout and anastomoses - additional length of terminal ileum was taken to facilitate tension free anastomosis with left colon/splenic flexure, and jejunojejunal anastomosis performed as well Symptoms and clinical presentation here quite similar to that here on 05/31 - without clinical picture of peritonitis He is only 6 weeks out from above operations, and surgery now would be difficult with risks including significant adhesions, bowel injury, possible need for ostomy and potential for wound complications, in addition to his underlying comorbidities CT abdomen repeated (06/15/17) revealed large volume ascites with a small amount of air identified in the left upper quadrant. Underlying infections to be excluded. if still with large volume of ascites, even loculated, would consider reattempting IR/US-guided paracentesis to remove more fluid, especially if more accessible area can be identified Referrals: Flakito Cintron MD [Primary Care Provider] - - Home Medications Comprehensive Discharge Medication List: Ambulatory Orders Amiodarone HCl 1 tab PO DAILY 03/17/18 Levothyroxine [Synthroid -] 1 tab PO DAILY 03/17/18 Pravastatin Sodium [Pravachol -] 1 tab PO DAILY 03/17/18 Acetaminophen [Tylenol] 650 mg PO DAILY PRN 05/31/18 Calcium Carbonate [Calcium] 500 mg PO AC 05/31/18 Citalopram Hydrobromide [Citalopram HBr] 20 mg PO DAILY 05/31/18 Cyanocobalamin [Vitamin B12 -] 100 mcg PO DAILY 05/31/18 Folic Acid - 1 mg PO DAILY 05/31/18 Melatonin/Pyridoxine HCl (B6) [Melatonin Tr 10 mg Tablet] 1 each PO HS 05/31/18 Midodrine HCl [Proamatine -] 5 mg PO TID 05/31/18 Vit B Comp No.3/Folic/C/Biotin [Krystina-Zane Rx Tablet] 1 each PO DAILY 05/31/18 Acetaminophen [Tylenol .Regular Strength -] 650 mg PO Q4H PRN tablet 06/15/18 Buspirone HCl [Buspar -] 10 mg PO TID tablet 06/15/18 Collagenase Clostridium Hist. [Santyl -] 1 applic TP DAILY tube 06/15/18 Cyclobenzaprine HCl 2.5 mg PO Q12H PRN tablet 06/15/18 Heparin - 1,000 unit IVPUSH PRN PRN vial 06/15/18 Heparin - 5,000 unit IVPUSH PRN PRN vial 06/15/18 Heparin - 25,000 unit IV TITR vial 06/15/18 Lidocaine 5% Patch [Lidoderm -] 1 patch TP DAILY patch 06/15/18 Lidocaine Patch Removal [Lidoderm Patch Removal] 1 each MC DAILY@2200 each Piperacillin/Tazob 2.25 gm [Zosyn -] 2.25 gm IVPB Q8H-IV vial 06/15/18 Ranitidine [Zantac -] 150 mg PO BID tablet 06/15/18 - Discharge Referral Referred to [facility] No
[2018-06-15 19:13] LABS: ALBUMIN 2.3 g/dl (3.4-5.0); ALK PHOS 135 U/L (45-117); ANION GAP 12 MMOL/L (8-16); BILIRUBIN,TOTAL 0.5 mg/dL (0.2-1); BLOOD UREA NITROGEN 22 mg/dL (7-18); CALCIUM 8.1 mg/dL (8.5-10.1); CHLORIDE 104 mmol/L (98-107); CO2 24 mmol/L (21-32); CREATININE 4.4 mg/dL (0.55-1.3); GLUCOSE,RANDOM 101 mg/dL (74-106); MAGNESIUM 1.8 mg/dL (1.8-2.4); PHOSPHOROUS 2.4 mg/dL (2.5-4.9); POTASSIUM 3.9 mmol/L (3.5-5.1); SGOT/AST 14 U/L (15-37); SGPT/ALT 15 U/L (13-61); SODIUM 140 mmol/L (136-145); TOT PROT 4.9 g/dl (6.4-8.2)
[2018-06-15] MEDS: CITALOPRAM HYDROBROMIDE 20 MG TABLET (FP) PO SCH (20:26)
[2018-06-15] MEDS: LEVOTHYROXINE NA 125 MCG TABLET (FP) PO SCH (20:26)
[2018-06-16] MEDS: BANATROL PLUS POWDER PACKET PO SCH ×4 (01:24→21:24)
[2018-06-16] MEDS: HEPARIN - 25,000 UNIT in SODIUM CHLORIDE 495 ML IV SCH ×2 (01:25→22:29)
[2018-06-16] MEDS ORDERED: DEXTROSE 5%-WATER - 50 ML IVPB ONE ×3 (01:32→17:04)
[2018-06-16] MEDS ORDERED: PIPERACILLIN/TAZOBACTAM 2.25 GM VIAL IVPB ONE ×3 (01:32→17:04)
[2018-06-16] MEDS: PIPERACILLIN/TAZOB 2.25 GM 2.25 GM in DEXTROSE 5%-WATER - 50 ML IVPB SCH ×3 (02:01→17:25)
[2018-06-16] MEDS: CALCIUM (OYSTER SHELL) 500 MG TABLET (FP) PO SCH ×4 (02:01→18:05)
[2018-06-16] MEDS: LIDOCAINE PATCH REMOVAL MC SCH ×2 (02:01→21:53)
[2018-06-16] MEDS: LEVOTHYROXINE NA 125 MCG TABLET (FP) PO SCH (06:34)
[2018-06-16] MEDS: busPIRone HCL 10 MG TABLET (FP) PO SCH ×3 (06:34→21:53)
--- NOTE | 2018-06-16 06:42 | HOSP ---
Subjective - Review of Symptoms Subjective: was called and informed that the patient has been accepted for transfer to [facility]. When approaching the patient to inform him of this and discuss his options, patient stated that he had no knowledge of this transfer and did not wish to be transferred today. Explained the reasons for transfer to the patient and the reasoning behind why he would benefit from a higher level of care. Also explained the risks of not being transferred to [facility]. Patient verbalized understanding and still wished to stay. As a result of this, this writer producer contacted [facility] and informed them of such. Was called to bedside later in the night as the patient's daughter was at bedside. Re-explained the reasoning for transfer. Patient states that he was amenable to possible transfer in the AM. Explained o the patient and the patient 's daughter that the patient's assigned bed may no longer be available in the AM. Both parties verbalized understanding. <Arie Arias - Last Filed: 06/16/18 06:45> Physical Examination Vital Signs: Vital Signs Temperature 98.5 F 06/16/18 02:00 Pulse Rate 73 06/16/18 02:00 Respiratory Rate 18 06/16/18 02:00 Blood Pressure 141/67 06/16/18 02:00 O2 Sat by Pulse Oximetry (%) 96 06/15/18 21:00 Labs: CBC, ROMULO 06/15/18 16:50 06/15/18 16:50 <Arie Arias - Last Filed: 06/16/18 06:45> Vital Signs: Vital Signs Temperature 97.5 F L 06/24/18 05:35 Pulse Rate 67 06/24/18 05:35 Respiratory Rate 18 06/24/18 05:35 Blood Pressure 120/63 06/24/18 05:35 O2 Sat by Pulse Oximetry (%) 97 06/23/18 21:00 Labs: CBC, BMP 06/23/18 06:00 06/23/18 06:00 <Gregg Williamson - Last Filed: 07/01/18 20:01> Hospitalist Encounter Assessment: Agree with above resident documentation <Gregg Williamson - Last Filed: 07/01/18 20:01> Visit type - Emergency Visit Emergency Visit: Yes ED Registration Date: 05/31/18 Care time: The patient presented to the Emergency Department on the above date and was hospitalized for further evaluation of their emergent condition. - New Patient This patient is new to me today: Yes Date on this admission: 06/16/18 - Critical Care Critical Care patient: No <Arie Arias - Last Filed: 06/16/18 06:45>
[2018-06-16 07:22] LABS: HEMATOCRIT 29.9 % (35.4-49); HEMOGLOBIN 9.8 GM/dL (11.7-16.9); MCH 31.8 pg (25.7-33.7); MCHC 32.9 g/dl (32.0-35.9); MEAN CELL VOLUME 96.6 fl (80-96); MEAN PLT VOLUME 8.1 fl (7.5-11.1); PLATELET COUNT 121 K/MM3 (134-434); RDW 25.7 % (11.9-15.9); WHITE BLOOD COUNT 5.4 K/mm3 (4.0-10.0)
[2018-06-16 08:26] LABS: ALBUMIN 2.8 g/dl (3.4-5.0); ALK PHOS 133 U/L (45-117); ANION GAP 10 MMOL/L (8-16); BILIRUBIN,TOTAL 0.7 mg/dL (0.2-1); BLOOD UREA NITROGEN 12 mg/dL (7-18); CALCIUM 8.1 mg/dL (8.5-10.1); CHLORIDE 105 mmol/L (98-107); CO2 27 mmol/L (21-32); CREATININE 3.1 mg/dL (0.55-1.3); GLUCOSE,RANDOM 92 mg/dL (74-106); MAGNESIUM 1.6 mg/dL (1.8-2.4); PHOSPHOROUS 1.8 mg/dL (2.5-4.9); POTASSIUM 3.2 mmol/L (3.5-5.1); SGOT/AST 17 U/L (15-37); SGPT/ALT 15 U/L (13-61); SODIUM 142 mmol/L (136-145)
[2018-06-16] MEDS ORDERED: PT OWN MED DRAWER 7, Y5N ONE ×2 (09:05→19:22)
[2018-06-16] MEDS: LIDOCAINE 5% TOPICAL PATCH TP SCH (09:24)
[2018-06-16] MEDS: MIDODRINE HCL 2.5 MG TABLET PO SCH ×3 (09:31→18:05)
[2018-06-16] MEDS: AMIODARONE HCL 200 MG TABLET (FP) PO SCH (09:35)
[2018-06-16] MEDS: RANITIDINE HCL 150 MG TABLET (FP) PO SCH ×2 (09:35→21:53)
[2018-06-16] MEDS: FOLIC ACID 1 MG TABLET (FP) PO SCH (09:35)
[2018-06-16] MEDS: VITAMIN B COMP W-C 1 EA TABLET PO SCH (09:35)
[2018-06-16] MEDS: CYANOCOBALAMIN (VITAMIN B-12) 100 MCG TABLET PO SCH (09:36)
[2018-06-16] MEDS: CITALOPRAM HYDROBROMIDE 20 MG TABLET (FP) PO SCH (09:39)
[2018-06-16] MEDS ORDERED: MORPHINE SULFATE 2 MG/ML VIAL IVPUSH ONE (10:21)
--- NOTE | 2018-06-16 11:29 | PN ---
Progress Note, Physician History of Present Illness: patient refused transfer to [facility] patient no other issues plan might be to retap the patient - Current Medication List Current Medications: Active Medications Acetaminophen (Tylenol -) 650 mg PO Q4H PRN PRN Reason: HEADACHE Last Admin: 06/15/18 20:33 Dose: 650 mg Amiodarone HCl (Cordarone -) 200 mg PO DAILY [facility] Last Admin: 06/16/18 09:35 Dose: 200 mg Buspirone HCl (Buspar -) 10 mg PO TID [facility] Last Admin: 06/16/18 06:34 Dose: 10 mg Calcium Carbonate (Os-Merlin 500mg -) 500 mg PO TIDAC [facility] Last Admin: 06/16/18 11:20 Dose: Not Given Citalopram Hydrobromide (Celexa -) 20 mg PO DAILY [facility] Last Admin: 06/16/18 09:39 Dose: 20 mg Collagenase (Santyl -) 1 applic TP DAILY [facility]; Protocol Last Admin: 06/15/18 18:42 Dose: 1 applic Cyanocobalamin (Vitamin B12 -) 100 mcg PO DAILY [facility] Last Admin: 06/16/18 09:36 Dose: 100 mcg Cyclobenzaprine HCl (Cyclobenzaprine Hcl) 2.5 mg PO Q12H PRN PRN Reason: MUSCLE SPASMS Last Admin: 06/15/18 21:42 Dose: 2.5 mg Folic Acid (Folic Acid -) 1 mg PO DAILY [facility] Last Admin: 06/16/18 09:35 Dose: 1 mg Heparin Sodium (Porcine) (Heparin -) 1,000 unit IVPUSH PRN PRN PRN Reason: Heparin Last Admin: 06/14/18 14:00 Dose: 1,000 unit Heparin Sodium (Porcine) (Heparin -) 5,000 unit IVPUSH PRN PRN PRN Reason: Heparin Heparin Sodium (Porcine) 25, (000 unit/ Sodium Chloride) 500 mls @ 20 mls/hr IV TITR [facility]; Protocol Last Titration: 06/16/18 09:22 Dose: 1,000 unit/hr, 20 mls/hr Piperacillin Sod/Tazobactam (Sod 2.25 gm/ Dextrose) 50 mls @ 100 mls/hr IVPB Q8H-IV [facility] Last Admin: 06/16/18 09:28 Dose: 100 mls/hr Sodium Chloride (Normal Saline -) 250 mls @ 3,000 mls/hr IV PRN PRN PRN Reason: Hypotension during Dialysis Stop: 06/16/18 18:02 Levothyroxine Sodium (Synthroid -) 125 mcg PO DAILY@0600 [facility] Last Admin: 06/16/18 06:34 Dose: 125 mcg Lidocaine (Lidoderm Patch -) 1 patch TP DAILY [facility] Last Admin: 06/16/18 09:24 Dose: 1 patch Midodrine (Proamatine -) 5 mg PO TID-MID [facility] Last Admin: 06/16/18 09:31 Dose: 5 mg Miscellaneous (Lidoderm Patch Removal) 1 each MC DAILY@2200 [facility] Last Admin: 06/16/18 02:01 Dose: 1 each Multivit/Ca Carb/B Cmplx/FA/Prenat (Nephro-Zane -) 1 tablet PO DAILY [facility] Last Admin: 06/16/18 09:35 Dose: 1 tablet Ranitidine HCl (Zantac -) 150 mg PO BID [facility] Last Admin: 06/16/18 09:35 Dose: 150 mg - Objective Vital Signs: Vital Signs Temperature 98 F 06/16/18 06:00 Pulse Rate 74 06/16/18 06:00 Respiratory Rate 18 06/16/18 06:00 Blood Pressure 118/55 L 06/16/18 06:00 O2 Sat by Pulse Oximetry (%) 96 06/15/18 21:00 Constitutional: Yes: No Distress, Calm Cardiovascular: Yes: S1, S2 Gastrointestinal: Yes: Soft, Other Musculoskeletal: Yes: WNL Extremities: Yes: Other Wound/Incision: Yes: Dressing Dry and Intact Neurological: Yes: Alert, Oriented Psychiatric: Yes: Alert, Oriented Labs: CBC, BMP 06/16/18 06:08 06/16/18 06:08 INR, PTT INR 1.26 (0.83-1.09) H 06/15/18 16:50 Assessment/Plan ASSESSMENT AND PLAN: (1) Hypotension Code(s): I95.9 - HYPOTENSION, UNSPECIFIED (2) ESRD (end stage renal disease) Code(s): N18.6 - END STAGE RENAL DISEASE (3) Ascites Code(s): R18.8 - OTHER ASCITES (4) Supratherapeutic INR Code(s): R79.1 - ABNORMAL COAGULATION PROFILE (5) CAD (coronary artery disease) Code(s): I25.10 - ATHSCL HEART DISEASE OF [place] CORONARY ARTERY W/O ANG PCTRS (6) CHF (congestive heart failure) Code(s): I50.9 - HEART FAILURE, UNSPECIFIED Qualifiers: Heart failure chronicity: acute on chronic (7) Hypothyroid Code(s): E03.9 - HYPOTHYROIDISM, UNSPECIFIED (8) SBP (secondary bacterial peritonitis) Code(s): K65.2 - SPONTANEOUS BACTERIAL PERITONITIS (9) Anxiety -consult psychiatry 10 b/l heel ulcer plan continue abx get the patient tapped as patient refused transfer final plan needs to be made once we have tap results will decide rest as per the team and surgery
--- NOTE | 2018-06-16 12:26 | PN ---
Progress Note, Physician Chief Complaint: Mr Schaeffer complains of back/abdominal pain and nausea with vomiting. No cp or sob. - Current Medication List Current Medications: Active Medications Acetaminophen (Tylenol -) 650 mg PO Q4H PRN PRN Reason: HEADACHE Last Admin: 06/15/18 20:33 Dose: 650 mg Amiodarone HCl (Cordarone -) 200 mg PO DAILY [facility] Last Admin: 06/16/18 09:35 Dose: 200 mg Buspirone HCl (Buspar -) 10 mg PO TID [facility] Last Admin: 06/16/18 06:34 Dose: 10 mg Calcium Carbonate (Os-Merlin 500mg -) 500 mg PO TIDAC [facility] Last Admin: 06/16/18 11:20 Dose: Not Given Citalopram Hydrobromide (Celexa -) 20 mg PO DAILY [facility] Last Admin: 06/16/18 09:39 Dose: 20 mg Collagenase (Santyl -) 1 applic TP DAILY [facility]; Protocol Last Admin: 06/15/18 18:42 Dose: 1 applic Cyanocobalamin (Vitamin B12 -) 100 mcg PO DAILY [facility] Last Admin: 06/16/18 09:36 Dose: 100 mcg Cyclobenzaprine HCl (Cyclobenzaprine Hcl) 2.5 mg PO Q12H PRN PRN Reason: MUSCLE SPASMS Last Admin: 06/15/18 21:42 Dose: 2.5 mg Folic Acid (Folic Acid -) 1 mg PO DAILY [facility] Last Admin: 06/16/18 09:35 Dose: 1 mg Heparin Sodium (Porcine) (Heparin -) 1,000 unit IVPUSH PRN PRN PRN Reason: Heparin Last Admin: 06/14/18 14:00 Dose: 1,000 unit Heparin Sodium (Porcine) (Heparin -) 5,000 unit IVPUSH PRN PRN PRN Reason: Heparin Heparin Sodium (Porcine) 25, (000 unit/ Sodium Chloride) 500 mls @ 20 mls/hr IV TITR [facility]; Protocol Last Titration: 06/16/18 09:22 Dose: 1,000 unit/hr, 20 mls/hr Piperacillin Sod/Tazobactam (Sod 2.25 gm/ Dextrose) 50 mls @ 100 mls/hr IVPB Q8H-IV [facility] Last Admin: 06/16/18 09:28 Dose: 100 mls/hr Sodium Chloride (Normal Saline -) 250 mls @ 3,000 mls/hr IV PRN PRN PRN Reason: Hypotension during Dialysis Stop: 06/16/18 18:02 Levothyroxine Sodium (Synthroid -) 125 mcg PO DAILY@0600 [facility] Last Admin: 06/16/18 06:34 Dose: 125 mcg Lidocaine (Lidoderm Patch -) 1 patch TP DAILY [facility] Last Admin: 06/16/18 09:24 Dose: 1 patch Midodrine (Proamatine -) 5 mg PO TID-MID [facility] Last Admin: 06/16/18 09:31 Dose: 5 mg Miscellaneous (Lidoderm Patch Removal) 1 each MC DAILY@2200 [facility] Last Admin: 06/16/18 02:01 Dose: 1 each Multivit/Ca Carb/B Cmplx/FA/Prenat (Nephro-Zane -) 1 tablet PO DAILY [facility] Last Admin: 06/16/18 09:35 Dose: 1 tablet Ranitidine HCl (Zantac -) 150 mg PO BID [facility] Last Admin: 06/16/18 09:35 Dose: 150 mg - Objective Vital Signs: Vital Signs Temperature 36.6 C 06/16/18 06:00 Pulse Rate 74 06/16/18 06:00 Respiratory Rate 18 06/16/18 06:00 Blood Pressure 118/55 L 06/16/18 06:00 O2 Sat by Pulse Oximetry (%) 96 06/15/18 21:00 Constitutional: Yes: Well Nourished, No Distress, Calm Cardiovascular: Yes: Regular Rate and Rhythm. No: Gallop, Murmur, Rub Respiratory: Yes: Regular, CTA Bilaterally. No: Rales, Rhonchi, Wheezes Gastrointestinal: Yes: Normal Bowel Sounds, Soft, Distention, Tenderness Extremities: Yes: WNL Edema: No Labs: CBC, BMP 06/16/18 06:08 06/16/18 06:08 INR, PTT INR 1.26 (0.83-1.09) H 06/15/18 16:50 Problem List - Problems (1) Hypotension Code(s): I95.9 - HYPOTENSION, UNSPECIFIED (2) ESRD (end stage renal disease) Code(s): N18.6 - END STAGE RENAL DISEASE (3) Ascites Code(s): R18.8 - OTHER ASCITES Qualifiers: Ascites type: other type Qualified Code(s): R18.8 - Other ascites (4) Supratherapeutic INR Code(s): R79.1 - ABNORMAL COAGULATION PROFILE (5) CAD (coronary artery disease) Code(s): I25.10 - ATHSCL HEART DISEASE OF [place] CORONARY ARTERY W/O ANG PCTRS Qualifiers: Coronary Disease-Associated Artery/Lesion type: [place] artery [place] vs. transplanted heart: [place] heart Associated angina: without angina Qualified Code(s): I25.10 - Atherosclerotic heart disease of [place] coronary artery without angina pectoris (6) CHF (congestive heart failure) Code(s): I50.9 - HEART FAILURE, UNSPECIFIED Qualifiers: Heart failure type: unspecified Heart failure chronicity: acute on chronic Qualified Code(s): I50.9 - Heart failure, unspecified (7) Hypothyroid Code(s): E03.9 - HYPOTHYROIDISM, UNSPECIFIED Qualifiers: Hypothyroidism type: unspecified Qualified Code(s): E03.9 - Hypothyroidism , unspecified (8) SBP (spontaneous bacterial peritonitis) Code(s): K65.2 - SPONTANEOUS BACTERIAL PERITONITIS Assessment/Plan (1) Hypotension Assessment/Plan: -continue midodrine -stable Code(s): I95.9 - HYPOTENSION, UNSPECIFIED (2) ESRD (end stage renal disease) Assessment/Plan: -case d/w nephrology -received HD last night Code(s): N18.6 - END STAGE RENAL DISEASE (3) Ascites Assessment/Plan: -case discussed with surgery -paracentesis ordered today, office called this am as well to confirm -however IR stated that they were unaware (in spite of orders and multiple calls ) -need to hold heparin for 6 hours -plan now to do paracentesis on Tuesday Code(s): R18.8 - OTHER ASCITES (4) Supratherapeutic INR Assessment/Plan: -normalized -now on heparin gtt for VTE -will need bridge back to coumadin when planning for discharge Code(s): R79.1 - ABNORMAL COAGULATION PROFILE (5) CAD (coronary artery disease) Assessment/Plan: -quiescent Code(s): I25.10 - ATHSCL HEART DISEASE OF [place] CORONARY ARTERY W/O ANG PCTRS (6) CHF (congestive heart failure) Assessment/Plan: -treating with HD Code(s): I50.9 - HEART FAILURE, UNSPECIFIED Qualifiers: Heart failure chronicity: acute on chronic (7) Hypothyroid Assessment/Plan: -continue synthroid Code(s): E03.9 - HYPOTHYROIDISM, UNSPECIFIED (8) SBP (secondary bacterial peritonitis) Assessment/Plan: -continue zosyn per ID -patient was accepted to [facility] for transfer last night -however he declined transfer in spite of discussion happening with him per team and encouragement from family -surgery following, plan for paracentesis on Tuesday Code(s): K65.2 - SPONTANEOUS BACTERIAL PERITONITIS (9) Anxiety -continue buspar (10) Anemia -stable
--- NOTE | 2018-06-16 12:41 | PN ---
Progress Note, Physician History of Present Illness: Pt seen and examined at bedside. He tolerated HD last night. He was accepted for transfer to [facility] last night and he refused to go. - Current Medication List Current Medications: Active Medications Acetaminophen (Tylenol -) 650 mg PO Q4H PRN PRN Reason: HEADACHE Last Admin: 06/15/18 20:33 Dose: 650 mg Amiodarone HCl (Cordarone -) 200 mg PO DAILY [facility] Last Admin: 06/16/18 09:35 Dose: 200 mg Buspirone HCl (Buspar -) 10 mg PO TID [facility] Last Admin: 06/16/18 06:34 Dose: 10 mg Calcium Carbonate (Os-Merlin 500mg -) 500 mg PO TIDAC [facility] Last Admin: 06/16/18 11:20 Dose: Not Given Citalopram Hydrobromide (Celexa -) 20 mg PO DAILY [facility] Last Admin: 06/16/18 09:39 Dose: 20 mg Collagenase (Santyl -) 1 applic TP DAILY [facility]; Protocol Last Admin: 06/15/18 18:42 Dose: 1 applic Cyanocobalamin (Vitamin B12 -) 100 mcg PO DAILY [facility] Last Admin: 06/16/18 09:36 Dose: 100 mcg Cyclobenzaprine HCl (Cyclobenzaprine Hcl) 2.5 mg PO Q12H PRN PRN Reason: MUSCLE SPASMS Last Admin: 06/15/18 21:42 Dose: 2.5 mg Folic Acid (Folic Acid -) 1 mg PO DAILY [facility] Last Admin: 06/16/18 09:35 Dose: 1 mg Heparin Sodium (Porcine) (Heparin -) 1,000 unit IVPUSH PRN PRN PRN Reason: Heparin Last Admin: 06/14/18 14:00 Dose: 1,000 unit Heparin Sodium (Porcine) (Heparin -) 5,000 unit IVPUSH PRN PRN PRN Reason: Heparin Heparin Sodium (Porcine) 25, (000 unit/ Sodium Chloride) 500 mls @ 20 mls/hr IV TITR [facility]; Protocol Last Titration: 06/16/18 09:22 Dose: 1,000 unit/hr, 20 mls/hr Piperacillin Sod/Tazobactam (Sod 2.25 gm/ Dextrose) 50 mls @ 100 mls/hr IVPB Q8H-IV [facility] Last Admin: 06/16/18 09:28 Dose: 100 mls/hr Sodium Chloride (Normal Saline -) 250 mls @ 3,000 mls/hr IV PRN PRN PRN Reason: Hypotension during Dialysis Stop: 06/16/18 18:02 Levothyroxine Sodium (Synthroid -) 125 mcg PO DAILY@0600 [facility] Last Admin: 06/16/18 06:34 Dose: 125 mcg Lidocaine (Lidoderm Patch -) 1 patch TP DAILY [facility] Last Admin: 06/16/18 09:24 Dose: 1 patch Midodrine (Proamatine -) 5 mg PO TID-MID [facility] Last Admin: 06/16/18 09:31 Dose: 5 mg Miscellaneous (Lidoderm Patch Removal) 1 each MC DAILY@2200 [facility] Last Admin: 06/16/18 02:01 Dose: 1 each Multivit/Ca Carb/B Cmplx/FA/Prenat (Nephro-Zane -) 1 tablet PO DAILY [facility] Last Admin: 06/16/18 09:35 Dose: 1 tablet Ranitidine HCl (Zantac -) 150 mg PO BID [facility] Last Admin: 06/16/18 09:35 Dose: 150 mg - Objective Vital Signs: Vital Signs Temperature 98 F 06/16/18 06:00 Pulse Rate 74 06/16/18 06:00 Respiratory Rate 18 06/16/18 06:00 Blood Pressure 118/55 L 06/16/18 06:00 O2 Sat by Pulse Oximetry (%) 96 06/15/18 21:00 Constitutional: Yes: Calm Eyes: Yes: Conjunctiva Clear HENT: Yes: Atraumatic Cardiovascular: Yes: S1, S2 Respiratory: Yes: CTA Bilaterally Gastrointestinal: Yes: Ascites, Distention Genitourinary: Yes: WNL Musculoskeletal: Yes: WNL Edema: No Neurological: Yes: Oriented Psychiatric: Yes: Oriented Labs: CBC, BMP 06/16/18 06:08 06/16/18 06:08 INR, PTT INR 1.26 (0.83-1.09) H 06/15/18 16:50 Problem List - Problems (1) ESRD (end stage renal disease) Code(s): N18.6 - END STAGE RENAL DISEASE Assessment/Plan Current Medications Generic Name Dose Route Start Last Admin Trade Name Freq PRN Reason Stop Dose Admin Acetaminophen 650 mg 06/10/18 00:02 06/15/18 20:33 Tylenol - PO 650 mg Q4H PRN Administration HEADACHE Amiodarone HCl 200 mg 06/10/18 10:00 06/16/18 09:35 Cordarone - PO 200 mg DAILY [facility] Administration Buspirone HCl 10 mg 06/10/18 06:00 06/16/18 06:34 Buspar - PO 10 mg TID [facility] Administration Calcium Carbonate 500 mg 06/10/18 07:00 06/16/18 11:20 Os-Merlin 500mg - PO Not Given TIDAC [facility] Citalopram Hydrobromide 20 mg 06/10/18 10:00 06/16/18 09:39 Celexa - PO 20 mg DAILY [facility] Administration Collagenase 1 applic 06/10/18 10:00 06/15/18 18:42 Santyl - TP 1 applic DAILY [facility] Administration Protocol Cyanocobalamin 100 mcg 06/10/18 10:00 06/16/18 09:36 Vitamin B12 - PO 100 mcg DAILY [facility] Administration Cyclobenzaprine HCl 2.5 mg 06/13/18 12:19 06/15/18 21:42 Cyclobenzaprine Hcl PO 2.5 mg Q12H PRN Administration MUSCLE SPASMS Folic Acid 1 mg 06/10/18 10:00 06/16/18 09:35 Folic Acid - PO 1 mg DAILY [facility] Administration Heparin Sodium (Porcine) 1,000 unit 06/08/18 23:20 06/14/18 14:00 Heparin - IVPUSH 1,000 unit PRN PRN Administration Heparin Heparin Sodium (Porcine) 5,000 unit 06/08/18 23:20 Heparin - IVPUSH PRN PRN Heparin Heparin Sodium (Porcine) 25, 500 mls @ 20 mls/hr 06/08/18 23:30 06/16/18 09: 22 000 unit/ Sodium Chloride IV 1,000 unit/hr TITR [facility] 20 mls/hr Titration Protocol 1,000 UNIT/HR Piperacillin Sod/Tazobactam 50 mls @ 100 mls/hr 06/15/18 18:00 06/16/18 09:28 Sod 2.25 gm/ Dextrose IVPB 100 mls/hr Q8H-IV [facility] Administration Sodium Chloride 250 mls @ 3,000 mls/hr 06/15/18 18:03 Normal Saline - IV 06/16/18 18:02 PRN PRN Hypotension during Dialysis Levothyroxine Sodium 125 mcg 06/10/18 06:00 06/16/18 06:34 Synthroid - PO 125 mcg DAILY@0600 [facility] Administration Lidocaine 1 patch 06/12/18 10:00 06/16/18 09:24 Lidoderm Patch - TP 1 patch DAILY [facility] Administration Midodrine 5 mg 06/08/18 10:00 06/16/18 09:31 Proamatine - PO 5 mg TID-MID [facility] Administration Miscellaneous 1 each 06/12/18 22:00 06/16/18 02:01 Lidoderm Patch Removal MC 1 each DAILY@2200 [facility] Administration Multivit/Ca Carb/B Cmplx/FA/Prenat 1 tablet 06/10/18 10:00 06/16/18 09:35 Nephro-Zane - PO 1 tablet DAILY [facility] Administration Ranitidine HCl 150 mg 06/12/18 10:30 06/16/18 09:35 Zantac - PO 150 mg BID [facility] Administration Impression 1. ESRD 2. CAD 3. CABG 4. COPD 5. CHF 6. SBP 7. DVT 8. hx mesinteric ischemia 9. hypothyroidism 10. gout 11. hld 12. pleural effusion 13. anemia 14. abd pain Plan - next HD tomorrow - pt for IR drainage today - discussed with medical team - he refused transfer yesterday - GI follow up - will need fistula once medically stable - discussed with his daughter - will follow Dr Jones
[2018-06-16] MEDS: MORPHINE SULFATE 2 MG/ML VIAL IVPUSH PRN ×2 (17:16→21:54)
--- NOTE | 2018-06-16 17:18 | PN ---
GI Progress Note Subjective: Recalled by Mr. Schaeffer's nurse this afternoon Repeat paracentesis not performed today Mr. Schaeffer refused transfer to [facility] last night Mr. Schaeffer had vomitig this morning along with abdominal pain and back pain CT scan from yesterday failed to reveal bowel obstruction. It revealed increased ascites with bowel that seemed to be walled off fro the ascites Prior paracentesis revealed high protein, Low SAAG ascites with high LDH - Objective Vital Signs: Vital Signs Temperature 97.7 F 06/16/18 14:31 Pulse Rate 69 06/16/18 14:31 Respiratory Rate 18 06/16/18 14:31 Blood Pressure 125/70 06/16/18 14:31 O2 Sat by Pulse Oximetry (%) 96 06/16/18 09:00 Constitutional: Calm Eyes: No: Sclera Icterus Cardiovascular: Yes: Regular Rate and Rhythm Respiratory: Yes: Diminished (at bases bilaterally) Gastrointestinal Inspection: Yes: Scars (midline) ...Auscultate: Yes: Normoactive Bowel Sounds ...Palpate: Yes: Soft (Distended with + fluid wave. The ascites is not tense.) . No: Tenderness Edema: No (No LE edema) Neurological: Yes: Alert Labs: CBC, BMP 06/16/18 06:08 06/16/18 06:08 INR, PTT INR 1.26 (0.83-1.09) H 06/15/18 16:50 - ....Imaging Cat Scan: Report Reviewed, Image Reviewed Problem List - Problems (1) Ascites Assessment/Plan: Unclear etiology. Low SAAG / high protein ascites. This is not a clear picture of portal hypetensive etiology. ? infected nephrogenic ascites ? decompensated liver disease (despite fuid analysis) after surgical interventions at [facility] Given nausea and vomiting, ? if the loculated collecting fluide is putting pressure on the stomach and bowel. No obstruiction seen on yesterday's CT scan Will need repeat paracentesis for recheck cell count and because it continues to accumulate Trial of clear liquids in AM. if continued vomiting, check FUA Nephrology follow-up Surgery is following Being Maintained on Zosyn per ID Dr. Carrion covering the weekend Code(s): R18.8 - OTHER ASCITES Qualifiers: Ascites type: other type Qualified Code(s): R18.8 - Other ascites
[2018-06-16] MEDS: COLLAGENASE CLOSTRIDIUM HIST. 30 GRAMS TUBE TP SCH (18:32)
[2018-06-17] MEDS ORDERED: PIPERACILLIN/TAZOBACTAM 2.25 GM VIAL IVPB ONE ×3 (02:26→16:19)
[2018-06-17] MEDS ORDERED: DEXTROSE 5%-WATER - 50 ML IVPB ONE ×3 (02:27→16:19)
[2018-06-17] MEDS: PIPERACILLIN/TAZOB 2.25 GM 2.25 GM in DEXTROSE 5%-WATER - 50 ML IVPB SCH ×3 (02:40→17:20)
[2018-06-17] MEDS: BANATROL PLUS POWDER PACKET PO SCH ×3 (05:56→21:30)
[2018-06-17] MEDS: MORPHINE SULFATE 2 MG/ML VIAL IVPUSH PRN ×4 (06:18→21:30)
[2018-06-17] MEDS: busPIRone HCL 10 MG TABLET (FP) PO SCH ×3 (07:00→21:30)
[2018-06-17] MEDS: CALCIUM (OYSTER SHELL) 500 MG TABLET (FP) PO SCH ×3 (07:00→17:26)
[2018-06-17] MEDS: ALBUMIN HUMAN 25% 12.5 GM/50 ML VIAL IVPB SCH ×4 (07:30→09:49)
[2018-06-17 08:16] LABS: EOS % 1.9 % (0-4.5); HEMATOCRIT 31.3 % (35.4-49); HEMOGLOBIN 10.3 GM/dL (11.7-16.9); LYMPH % 12.8 % (8-40); MCH 32.5 pg (25.7-33.7); MCHC 33.1 g/dl (32.0-35.9); MEAN CELL VOLUME 98.4 fl (80-96); MONO % 9.6 % (3.8-10.2); NEUT % 74.7 % (42.8-82.8); PLATELET COUNT 129 K/MM3 (134-434); RBC 3.18 M/mm3 (4.00-5.60); RDW 27.7 % (11.9-15.9); WHITE BLOOD COUNT 5.7 K/mm3 (4.0-10.0)
[2018-06-17] MEDS ORDERED: SODIUM CHLORIDE 250 ML IV PRN (08:35)
[2018-06-17 08:47] LABS: ANION GAP 11 MMOL/L (8-16); BLOOD UREA NITROGEN 16 mg/dL (7-18); CALCIUM 8.1 mg/dL (8.5-10.1); CHLORIDE 106 mmol/L (98-107); CO2 26 mmol/L (21-32); CREATININE 3.9 mg/dL (0.55-1.3); GLUCOSE,RANDOM 94 mg/dL (74-106); MAGNESIUM 1.8 mg/dL (1.8-2.4); PHOSPHOROUS 2.5 mg/dL (2.5-4.9); POTASSIUM 3.2 mmol/L (3.5-5.1); SODIUM 143 mmol/L (136-145)
[2018-06-17] MEDS: MIDODRINE HCL 2.5 MG TABLET PO SCH ×3 (10:00→17:26)
[2018-06-17] MEDS ORDERED: EPOETIN ALFA 10,000 UNIT/1 ML VIAL IVPUSH ONE (10:00)
[2018-06-17 10:38] LABS: ANISOCYTOSIS 1+; PLATELET ESTIMATE DECREASED
[2018-06-17] MEDS ORDERED: PT OWN MED DRAWER 7, Y5N ONE (11:07)
[2018-06-17] MEDS: LIDOCAINE 5% TOPICAL PATCH TP SCH (11:08)
[2018-06-17] MEDS: RANITIDINE HCL 150 MG TABLET (FP) PO SCH ×2 (11:08→21:30)
--- NOTE | 2018-06-17 12:31 | PN ---
Progress Note, Physician Chief Complaint: hypotensioni History of Present Illness: feels well currently no sob, orthopnea no cp no leg swelling has not seen [employer] assistant. saw dr bojorquez 13 yrs ago (for chf) when was in heart failure after CABG and with active SVT--all resolved after SVT ablation he says sees dr leticia GARCIA for device only - Current Medication List Current Medications: Active Medications Acetaminophen (Tylenol -) 650 mg PO Q4H PRN PRN Reason: HEADACHE Last Admin: 06/15/18 20:33 Dose: 650 mg Amiodarone HCl (Cordarone -) 200 mg PO DAILY [facility] Last Admin: 06/16/18 09:35 Dose: 200 mg Buspirone HCl (Buspar -) 10 mg PO TID [facility] Last Admin: 06/16/18 21:53 Dose: 10 mg Calcium Carbonate (Os-Merlin 500mg -) 500 mg PO TIDAC [facility] Last Admin: 06/16/18 18:05 Dose: Not Given Citalopram Hydrobromide (Celexa -) 20 mg PO DAILY [facility] Last Admin: 06/16/18 09:39 Dose: 20 mg Collagenase (Santyl -) 1 applic TP DAILY [facility]; Protocol Last Admin: 06/16/18 18:32 Dose: 1 applic Cyanocobalamin (Vitamin B12 -) 100 mcg PO DAILY [facility] Last Admin: 06/16/18 09:36 Dose: 100 mcg Cyclobenzaprine HCl (Cyclobenzaprine Hcl) 2.5 mg PO Q12H PRN PRN Reason: MUSCLE SPASMS Last Admin: 06/15/18 21:42 Dose: 2.5 mg Folic Acid (Folic Acid -) 1 mg PO DAILY [facility] Last Admin: 06/16/18 09:35 Dose: 1 mg Heparin Sodium (Porcine) (Heparin -) 1,000 unit IVPUSH PRN PRN PRN Reason: Heparin Last Admin: 06/14/18 14:00 Dose: 1,000 unit Heparin Sodium (Porcine) (Heparin -) 5,000 unit IVPUSH PRN PRN PRN Reason: Heparin Heparin Sodium (Porcine) 25, (000 unit/ Sodium Chloride) 500 mls @ 20 mls/hr IV TITR [facility]; Protocol Last Titration: 06/17/18 10:52 Dose: 900 unit/hr, 18 mls/hr Piperacillin Sod/Tazobactam (Sod 2.25 gm/ Dextrose) 50 mls @ 100 mls/hr IVPB Q8H-IV [facility] Last Admin: 06/17/18 10:00 Dose: 100 mls/hr Sodium Chloride (Normal Saline -) 250 mls @ 3,000 mls/hr IV PRN PRN PRN Reason: Hypotension during Dialysis Stop: 06/18/18 08:34 Levothyroxine Sodium (Synthroid -) 125 mcg PO DAILY@0600 [facility] Last Admin: 06/16/18 06:34 Dose: 125 mcg Lidocaine (Lidoderm Patch -) 1 patch TP DAILY [facility] Last Admin: 06/17/18 11:08 Dose: 1 patch Midodrine (Proamatine -) 5 mg PO TID-MID [facility] Last Admin: 06/16/18 18:05 Dose: Not Given Miscellaneous (Lidoderm Patch Removal) 1 each MC DAILY@2200 [facility] Last Admin: 06/16/18 21:53 Dose: 1 each Morphine Sulfate (Morphine Sulfate) 1 mg IVPUSH Q4H PRN PRN Reason: PAIN LEVEL 6-10 Last Admin: 06/17/18 11:23 Dose: 1 mg Multivit/Ca Carb/B Cmplx/FA/Prenat (Nephro-Zane -) 1 tablet PO DAILY [facility] Last Admin: 06/16/18 09:35 Dose: 1 tablet Ranitidine HCl (Zantac -) 150 mg PO BID [facility] Last Admin: 06/17/18 11:08 Dose: 150 mg - Objective Vital Signs: Vital Signs Temperature 97.5 F L 06/17/18 06:55 Pulse Rate 64 06/17/18 10:35 Respiratory Rate 18 06/17/18 10:35 Blood Pressure 106/51 L 06/17/18 10:35 O2 Sat by Pulse Oximetry (%) 96 06/16/18 21:00 Constitutional: Yes: Well Nourished, No Distress, Calm Cardiovascular: Yes: Regular Rate and Rhythm, S1, S2. No: Gallop, Murmur Respiratory: Yes: Regular, CTA Bilaterally. No: Accessory Muscle Use, Rales Extremities: No: Cold Edema: No Neurological: Yes: Alert, Oriented Psychiatric: No: Agitated Labs: CBC, BMP 06/17/18 07:00 06/17/18 07:00 INR, PTT INR 1.26 (0.83-1.09) H 06/15/18 16:50 Assessment/Plan Echo 05/2018 nl LV size, mildly reduced function EF 45-50%, mild global hypokinesis of LV, nl RV, ppm lead in RV and RA, tr TR EKG: sinus, prolonged QTC, old septal infarct acute on chronic systolic HF: - mildly reduced EF on echo - appeared volume up as above on admit with SOB - sx's resolved with HD--volume management per renal - appears euvolemic at present time - not on DELANO/BB due to low BP - pt advised to see us in f/u to maintain general cardio care in this area (for chf and cad) Prolonged QTc - avoid QT prolonging agents - maintain K >4, Mg >2 s/p ICD ([place]) - outpatient follow up, Dr. Stover - recent device checks unremarkable per patient - cont amiodarone hypotension - continue midodrine - sbp remains 90s at times (>> 80s), but stable - same plan ESRD on HD - per renal CAD, s/p CABG - cont statin - holding aspirin due to elevated INR and anemia mesenteric ischemia - recent dx, s/p surgery during recent admission for hip fx anemia - manage per primary ascites: -GI, ID, surgery following, on abx. manage per primary Right IJ dvt: -plans per vascular, on hep gtt
--- NOTE | 2018-06-17 13:11 | PN ---
Progress Note, Physician History of Present Illness: says he has no complaints family in the room - Current Medication List Current Medications: Active Medications Acetaminophen (Tylenol -) 650 mg PO Q4H PRN PRN Reason: HEADACHE Last Admin: 06/15/18 20:33 Dose: 650 mg Amiodarone HCl (Cordarone -) 200 mg PO DAILY [facility] Last Admin: 06/16/18 09:35 Dose: 200 mg Buspirone HCl (Buspar -) 10 mg PO TID [facility] Last Admin: 06/16/18 21:53 Dose: 10 mg Calcium Carbonate (Os-Merlin 500mg -) 500 mg PO TIDAC [facility] Last Admin: 06/16/18 18:05 Dose: Not Given Citalopram Hydrobromide (Celexa -) 20 mg PO DAILY [facility] Last Admin: 06/16/18 09:39 Dose: 20 mg Collagenase (Santyl -) 1 applic TP DAILY [facility]; Protocol Last Admin: 06/16/18 18:32 Dose: 1 applic Cyanocobalamin (Vitamin B12 -) 100 mcg PO DAILY [facility] Last Admin: 06/16/18 09:36 Dose: 100 mcg Cyclobenzaprine HCl (Cyclobenzaprine Hcl) 2.5 mg PO Q12H PRN PRN Reason: MUSCLE SPASMS Last Admin: 06/15/18 21:42 Dose: 2.5 mg Folic Acid (Folic Acid -) 1 mg PO DAILY [facility] Last Admin: 06/16/18 09:35 Dose: 1 mg Heparin Sodium (Porcine) (Heparin -) 1,000 unit IVPUSH PRN PRN PRN Reason: Heparin Last Admin: 06/14/18 14:00 Dose: 1,000 unit Heparin Sodium (Porcine) (Heparin -) 5,000 unit IVPUSH PRN PRN PRN Reason: Heparin Heparin Sodium (Porcine) 25, (000 unit/ Sodium Chloride) 500 mls @ 20 mls/hr IV TITR [facility]; Protocol Last Titration: 06/17/18 10:52 Dose: 900 unit/hr, 18 mls/hr Piperacillin Sod/Tazobactam (Sod 2.25 gm/ Dextrose) 50 mls @ 100 mls/hr IVPB Q8H-IV [facility] Last Admin: 06/17/18 10:00 Dose: 100 mls/hr Sodium Chloride (Normal Saline -) 250 mls @ 3,000 mls/hr IV PRN PRN PRN Reason: Hypotension during Dialysis Stop: 06/18/18 08:34 Levothyroxine Sodium (Synthroid -) 125 mcg PO DAILY@0600 [facility] Last Admin: 06/16/18 06:34 Dose: 125 mcg Lidocaine (Lidoderm Patch -) 1 patch TP DAILY [facility] Last Admin: 06/17/18 11:08 Dose: 1 patch Midodrine (Proamatine -) 5 mg PO TID-MID [facility] Last Admin: 06/16/18 18:05 Dose: Not Given Miscellaneous (Lidoderm Patch Removal) 1 each MC DAILY@2200 [facility] Last Admin: 06/16/18 21:53 Dose: 1 each Morphine Sulfate (Morphine Sulfate) 1 mg IVPUSH Q4H PRN PRN Reason: PAIN LEVEL 6-10 Last Admin: 06/17/18 11:23 Dose: 1 mg Multivit/Ca Carb/B Cmplx/FA/Prenat (Nephro-Zane -) 1 tablet PO DAILY [facility] Last Admin: 06/16/18 09:35 Dose: 1 tablet Ranitidine HCl (Zantac -) 150 mg PO BID [facility] Last Admin: 06/17/18 11:08 Dose: 150 mg - Objective Vital Signs: Vital Signs Temperature 97.5 F L 06/17/18 06:55 Pulse Rate 64 06/17/18 10:35 Respiratory Rate 18 06/17/18 10:35 Blood Pressure 106/51 L 06/17/18 10:35 O2 Sat by Pulse Oximetry (%) 96 06/16/18 21:00 Constitutional: Yes: No Distress, Calm Cardiovascular: Yes: Regular Rate and Rhythm Respiratory: Yes: Regular, CTA Bilaterally Gastrointestinal: Yes: Normal Bowel Sounds, Soft Musculoskeletal: Yes: WNL Extremities: Yes: Other Neurological: Yes: Alert, Oriented Psychiatric: Yes: Alert, Oriented Labs: CBC, BMP 06/17/18 07:00 06/17/18 07:00 INR, PTT INR 1.26 (0.83-1.09) H 06/15/18 16:50 Assessment/Plan ASSESSMENT AND PLAN: (1) Hypotension Code(s): I95.9 - HYPOTENSION, UNSPECIFIED (2) ESRD (end stage renal disease) Code(s): N18.6 - END STAGE RENAL DISEASE (3) Ascites Code(s): R18.8 - OTHER ASCITES (4) Supratherapeutic INR Code(s): R79.1 - ABNORMAL COAGULATION PROFILE (5) CAD (coronary artery disease) Code(s): I25.10 - ATHSCL HEART DISEASE OF [place] CORONARY ARTERY W/O ANG PCTRS (6) CHF (congestive heart failure) Code(s): I50.9 - HEART FAILURE, UNSPECIFIED Qualifiers: Heart failure chronicity: acute on chronic (7) Hypothyroid Code(s): E03.9 - HYPOTHYROIDISM, UNSPECIFIED (8) SBP (secondary bacterial peritonitis) Code(s): K65.2 - SPONTANEOUS BACTERIAL PERITONITIS (9) Anxiety -consult psychiatry 10 b/l heel ulcer plan continue abx get the patient tapped d/w the family patient should be transferred
[2018-06-17] MEDS: LEVOTHYROXINE NA 125 MCG TABLET (FP) PO SCH (14:49)
[2018-06-17] MEDS: AMIODARONE HCL 200 MG TABLET (FP) PO SCH (14:50)
[2018-06-17] MEDS: CITALOPRAM HYDROBROMIDE 20 MG TABLET (FP) PO SCH (14:50)
--- NOTE | 2018-06-17 16:11 | PN ---
Progress Note (short form) - Note Progress Note: RENAL awake and alert doing well was dialyzed today Last Vital Signs Temp Pulse Resp BP Pulse Ox 98.4 F 74 22 H 119/52 L 95 06/17/18 14:45 06/17/18 14:45 06/17/18 14:45 06/17/18 14:45 06/17/18 12:00 lungs decreased breath sounds cvs s1s2 rr abd soft ext no edema neuro a+ox3 CBC, BMP 06/17/18 07:00 06/17/18 07:00 Current Medications Generic Name Dose Route Start Last Admin Trade Name Freq PRN Reason Stop Dose Admin Acetaminophen 650 mg 06/10/18 00:02 06/15/18 20:33 Tylenol - PO 650 mg Q4H PRN Administration HEADACHE Amiodarone HCl 200 mg 06/10/18 10:00 06/17/18 14:50 Cordarone - PO 200 mg DAILY [facility] Administration Buspirone HCl 10 mg 06/10/18 06:00 06/17/18 14:49 Buspar - PO 10 mg TID [facility] Administration Calcium Carbonate 500 mg 06/10/18 07:00 06/17/18 11:00 Os-Merlin 500mg - PO Not Given TIDAC [facility] Citalopram Hydrobromide 20 mg 06/10/18 10:00 06/17/18 14:50 Celexa - PO 20 mg DAILY [facility] Administration Collagenase 1 applic 06/10/18 10:00 06/16/18 18:32 Santyl - TP 1 applic DAILY [facility] Administration Protocol Cyanocobalamin 100 mcg 06/10/18 10:00 06/16/18 09:36 Vitamin B12 - PO 100 mcg DAILY [facility] Administration Cyclobenzaprine HCl 2.5 mg 06/13/18 12:19 06/15/18 21:42 Cyclobenzaprine Hcl PO 2.5 mg Q12H PRN Administration MUSCLE SPASMS Folic Acid 1 mg 06/10/18 10:00 06/16/18 09:35 Folic Acid - PO 1 mg DAILY [facility] Administration Heparin Sodium (Porcine) 1,000 unit 06/08/18 23:20 06/14/18 14:00 Heparin - IVPUSH 1,000 unit PRN PRN Administration Heparin Heparin Sodium (Porcine) 5,000 unit 06/08/18 23:20 Heparin - IVPUSH PRN PRN Heparin Heparin Sodium (Porcine) 25, 500 mls @ 20 mls/hr 06/08/18 23:30 06/17/18 10: 52 000 unit/ Sodium Chloride IV 900 unit/hr TITR [facility] 18 mls/hr Titration Protocol 1,000 UNIT/HR Piperacillin Sod/Tazobactam 50 mls @ 100 mls/hr 06/15/18 18:00 06/17/18 10:00 Sod 2.25 gm/ Dextrose IVPB 100 mls/hr Q8H-IV [facility] Administration Sodium Chloride 250 mls @ 3,000 mls/hr 06/17/18 08:35 Normal Saline - IV 06/18/18 08:34 PRN PRN Hypotension during Dialysis Levothyroxine Sodium 125 mcg 06/10/18 06:00 06/17/18 14:49 Synthroid - PO 125 mcg DAILY@0600 [facility] Administration Lidocaine 1 patch 06/12/18 10:00 06/17/18 11:08 Lidoderm Patch - TP 1 patch DAILY [facility] Administration Midodrine 5 mg 06/08/18 10:00 06/17/18 14:51 Proamatine - PO 5 mg TID-MID [facility] Administration Miscellaneous 1 each 06/12/18 22:00 06/16/18 21:53 Lidoderm Patch Removal MC 1 each DAILY@2200 [facility] Administration Morphine Sulfate 1 mg 06/16/18 16:29 06/17/18 15:28 Morphine Sulfate IVPUSH 1 mg Q4H PRN Administration PAIN LEVEL 6-10 Multivit/Ca Carb/B Cmplx/FA/Prenat 1 tablet 06/10/18 10:00 06/16/18 09:35 Nephro-Zane - PO 1 tablet DAILY [facility] Administration Ranitidine HCl 150 mg 06/12/18 10:30 06/17/18 11:08 Zantac - PO 150 mg BID [facility] Administration Impression 1. ESRD 2. CAD 3. CABG 4. COPD 5. CHF 6. SBP 7. DVT 8. hx mesinteric ischemia 9. hypothyroidism 10. gout 11. hld 12. pleural effusion 13. anemia 14. abd pain Plan seen in presence of and daughter who is a restorationism sister s/p HD today for IR MV
--- NOTE | 2018-06-17 16:30 | PN ---
Progress Note, Physician Chief Complaint: Mr Schaeffer is still having back and abdominal pain, says he feels full. No cp or sob. - Current Medication List Current Medications: Active Medications Acetaminophen (Tylenol -) 650 mg PO Q4H PRN PRN Reason: HEADACHE Last Admin: 06/15/18 20:33 Dose: 650 mg Amiodarone HCl (Cordarone -) 200 mg PO DAILY [facility] Last Admin: 06/17/18 14:50 Dose: 200 mg Buspirone HCl (Buspar -) 10 mg PO TID [facility] Last Admin: 06/17/18 14:49 Dose: 10 mg Calcium Carbonate (Os-Merlin 500mg -) 500 mg PO TIDAC [facility] Last Admin: 06/17/18 11:00 Dose: Not Given Citalopram Hydrobromide (Celexa -) 20 mg PO DAILY [facility] Last Admin: 06/17/18 14:50 Dose: 20 mg Collagenase (Santyl -) 1 applic TP DAILY [facility]; Protocol Last Admin: 06/16/18 18:32 Dose: 1 applic Cyanocobalamin (Vitamin B12 -) 100 mcg PO DAILY [facility] Last Admin: 06/16/18 09:36 Dose: 100 mcg Cyclobenzaprine HCl (Cyclobenzaprine Hcl) 2.5 mg PO Q12H PRN PRN Reason: MUSCLE SPASMS Last Admin: 06/15/18 21:42 Dose: 2.5 mg Folic Acid (Folic Acid -) 1 mg PO DAILY [facility] Last Admin: 06/16/18 09:35 Dose: 1 mg Heparin Sodium (Porcine) (Heparin -) 1,000 unit IVPUSH PRN PRN PRN Reason: Heparin Last Admin: 06/14/18 14:00 Dose: 1,000 unit Heparin Sodium (Porcine) (Heparin -) 5,000 unit IVPUSH PRN PRN PRN Reason: Heparin Heparin Sodium (Porcine) 25, (000 unit/ Sodium Chloride) 500 mls @ 20 mls/hr IV TITR [facility]; Protocol Last Titration: 06/17/18 10:52 Dose: 900 unit/hr, 18 mls/hr Piperacillin Sod/Tazobactam (Sod 2.25 gm/ Dextrose) 50 mls @ 100 mls/hr IVPB Q8H-IV [facility] Last Admin: 06/17/18 10:00 Dose: 100 mls/hr Sodium Chloride (Normal Saline -) 250 mls @ 3,000 mls/hr IV PRN PRN PRN Reason: Hypotension during Dialysis Stop: 06/18/18 08:34 Levothyroxine Sodium (Synthroid -) 125 mcg PO DAILY@0600 [facility] Last Admin: 06/17/18 14:49 Dose: 125 mcg Lidocaine (Lidoderm Patch -) 1 patch TP DAILY [facility] Last Admin: 06/17/18 11:08 Dose: 1 patch Midodrine (Proamatine -) 5 mg PO TID-MID [facility] Last Admin: 06/17/18 14:51 Dose: 5 mg Miscellaneous (Lidoderm Patch Removal) 1 each MC DAILY@2200 [facility] Last Admin: 06/16/18 21:53 Dose: 1 each Morphine Sulfate (Morphine Sulfate) 1 mg IVPUSH Q4H PRN PRN Reason: PAIN LEVEL 6-10 Last Admin: 06/17/18 15:28 Dose: 1 mg Multivit/Ca Carb/B Cmplx/FA/Prenat (Nephro-Zane -) 1 tablet PO DAILY [facility] Last Admin: 06/16/18 09:35 Dose: 1 tablet Ranitidine HCl (Zantac -) 150 mg PO BID [facility] Last Admin: 06/17/18 11:08 Dose: 150 mg - Objective Vital Signs: Vital Signs Temperature 36.9 C 06/17/18 14:45 Pulse Rate 74 06/17/18 14:45 Respiratory Rate 22 H 06/17/18 14:45 Blood Pressure 119/52 L 06/17/18 14:45 O2 Sat by Pulse Oximetry (%) 95 06/17/18 12:00 Constitutional: Yes: Well Nourished, No Distress, Calm Cardiovascular: Yes: Regular Rate and Rhythm. No: Gallop, Murmur, Rub Respiratory: Yes: Regular, CTA Bilaterally. No: Rales, Rhonchi, Wheezes Gastrointestinal: Yes: Distention, Hypoactive Bowel Sounds, Tenderness Extremities: Yes: WNL Edema: No Labs: CBC, BMP 06/17/18 07:00 06/17/18 07:00 INR, PTT INR 1.26 (0.83-1.09) H 06/15/18 16:50 Problem List - Problems (1) Hypotension Code(s): I95.9 - HYPOTENSION, UNSPECIFIED (2) ESRD (end stage renal disease) Code(s): N18.6 - END STAGE RENAL DISEASE (3) Ascites Code(s): R18.8 - OTHER ASCITES Qualifiers: Ascites type: other type Qualified Code(s): R18.8 - Other ascites (4) Supratherapeutic INR Code(s): R79.1 - ABNORMAL COAGULATION PROFILE (5) CAD (coronary artery disease) Code(s): I25.10 - ATHSCL HEART DISEASE OF [place] CORONARY ARTERY W/O ANG PCTRS Qualifiers: Coronary Disease-Associated Artery/Lesion type: [place] artery [place] vs. transplanted heart: [place] heart Associated angina: without angina Qualified Code(s): I25.10 - Atherosclerotic heart disease of [place] coronary artery without angina pectoris (6) CHF (congestive heart failure) Code(s): I50.9 - HEART FAILURE, UNSPECIFIED Qualifiers: Heart failure type: unspecified Heart failure chronicity: acute on chronic Qualified Code(s): I50.9 - Heart failure, unspecified (7) Hypothyroid Code(s): E03.9 - HYPOTHYROIDISM, UNSPECIFIED Qualifiers: Hypothyroidism type: unspecified Qualified Code(s): E03.9 - Hypothyroidism , unspecified (8) SBP (spontaneous bacterial peritonitis) Code(s): K65.2 - SPONTANEOUS BACTERIAL PERITONITIS Assessment/Plan (1) Hypotension Assessment/Plan: -continue midodrine -stable Code(s): I95.9 - HYPOTENSION, UNSPECIFIED (2) ESRD (end stage renal disease) Assessment/Plan: -nephrology following and managing HD Code(s): N18.6 - END STAGE RENAL DISEASE (3) Ascites Assessment/Plan: -plan for paracentesis on Tuesday -hold heparin gtt tomorrow night Code(s): R18.8 - OTHER ASCITES (4) Supratherapeutic INR Assessment/Plan: -normalized -now on heparin gtt for VTE -will need bridge back to coumadin when planning for discharge Code(s): R79.1 - ABNORMAL COAGULATION PROFILE (5) CAD (coronary artery disease) Assessment/Plan: -quiescent Code(s): I25.10 - ATHSCL HEART DISEASE OF [place] CORONARY ARTERY W/O ANG PCTRS (6) CHF (congestive heart failure) Assessment/Plan: -treating with HD Code(s): I50.9 - HEART FAILURE, UNSPECIFIED Qualifiers: Heart failure chronicity: acute on chronic (7) Hypothyroid Assessment/Plan: -continue synthroid Code(s): E03.9 - HYPOTHYROIDISM, UNSPECIFIED (8) SBP (secondary bacterial peritonitis) Assessment/Plan: -continue zosyn per ID -patient was accepted to [facility] for transfer last night -however he declined transfer in spite of discussion happening with him per team and encouragement from family -requesting transfer to [facility], awaiting call back -surgery following, plan for paracentesis on Tuesday Code(s): K65.2 - SPONTANEOUS BACTERIAL PERITONITIS (9) Anxiety -continue buspar (10) Anemia -stable
[2018-06-17] MEDS: VITAMIN B COMP W-C 1 EA TABLET PO SCH (17:25)
[2018-06-17] MEDS: FOLIC ACID 1 MG TABLET (FP) PO SCH (17:25)
[2018-06-17] MEDS: COLLAGENASE CLOSTRIDIUM HIST. 30 GRAMS TUBE TP SCH (17:25)
[2018-06-17] MEDS: CYANOCOBALAMIN (VITAMIN B-12) 100 MCG TABLET PO SCH (17:26)
[2018-06-17] MEDS: LIDOCAINE PATCH REMOVAL MC SCH (21:33)
[2018-06-18] MEDS ORDERED: PIPERACILLIN/TAZOBACTAM 2.25 GM VIAL IVPB ONE ×3 (01:38→17:08)
[2018-06-18] MEDS ORDERED: DEXTROSE 5%-WATER - 50 ML IVPB ONE ×3 (01:39→17:08)
[2018-06-18] MEDS: PIPERACILLIN/TAZOB 2.25 GM 2.25 GM in DEXTROSE 5%-WATER - 50 ML IVPB SCH ×3 (02:28→19:10)
[2018-06-18] MEDS: HEPARIN - 25,000 UNIT in SODIUM CHLORIDE 495 ML IV SCH (02:29)
[2018-06-18] MEDS: MORPHINE SULFATE 2 MG/ML VIAL IVPUSH PRN ×3 (02:58→18:31)
[2018-06-18] MEDS: BANATROL PLUS POWDER PACKET PO SCH ×3 (05:08→21:08)
[2018-06-18] MEDS: LEVOTHYROXINE NA 125 MCG TABLET (FP) PO SCH (06:24)
[2018-06-18] MEDS: CALCIUM (OYSTER SHELL) 500 MG TABLET (FP) PO SCH ×3 (06:24→18:30)
[2018-06-18] MEDS: busPIRone HCL 10 MG TABLET (FP) PO SCH ×4 (06:24→21:58)
[2018-06-18 07:23] LABS: BASO % 0.9 % (0-2.0); EOS % 1.1 % (0-4.5); HEMATOCRIT 33.6 % (35.4-49); HEMOGLOBIN 11.2 GM/dL (11.7-16.9); LYMPH % 11.2 % (8-40); MCH 33.8 pg (25.7-33.7); MCHC 33.3 g/dl (32.0-35.9); MEAN CELL VOLUME 101.4 fl (80-96); MEAN PLT VOLUME 8.1 fl (7.5-11.1); NEUT % 77.8 % (42.8-82.8); PLATELET COUNT 104 K/MM3 (134-434); RBC 3.32 M/mm3 (4.00-5.60); RDW 27.8 % (11.9-15.9); WHITE BLOOD COUNT 6.4 K/mm3 (4.0-10.0)
[2018-06-18 07:46] LABS: ANION GAP 7 MMOL/L (8-16); BLOOD UREA NITROGEN 9 mg/dL (7-18); CALCIUM 8.7 mg/dL (8.5-10.1); CHLORIDE 104 mmol/L (98-107); CO2 32 mmol/L (21-32); CREATININE 3.1 mg/dL (0.55-1.3); GLUCOSE,RANDOM 101 mg/dL (74-106); MAGNESIUM 1.7 mg/dL (1.8-2.4); PHOSPHOROUS 1.9 mg/dL (2.5-4.9); POTASSIUM 3.8 mmol/L (3.5-5.1); SODIUM 143 mmol/L (136-145)
[2018-06-18] MEDS: RANITIDINE HCL 150 MG TABLET (FP) PO SCH ×2 (09:38→21:59)
[2018-06-18] MEDS: AMIODARONE HCL 200 MG TABLET (FP) PO SCH (09:38)
[2018-06-18] MEDS: CITALOPRAM HYDROBROMIDE 20 MG TABLET (FP) PO SCH (09:38)
[2018-06-18] MEDS: VITAMIN B COMP W-C 1 EA TABLET PO SCH (09:38)
[2018-06-18] MEDS: MIDODRINE HCL 2.5 MG TABLET PO SCH ×4 (09:40→18:38)
[2018-06-18] MEDS: CYANOCOBALAMIN (VITAMIN B-12) 100 MCG TABLET PO SCH (09:41)
[2018-06-18] MEDS ORDERED: PT OWN MED DRAWER 7, Y5N ONE ×3 (09:46→19:50)
[2018-06-18] MEDS: LIDOCAINE 5% TOPICAL PATCH TP SCH (09:47)
[2018-06-18] MEDS: FOLIC ACID 1 MG TABLET (FP) PO SCH (09:47)
--- NOTE | 2018-06-18 11:48 | PN ---
Progress Note (short form) - Note Progress Note: RENAL awake and alert does not eat much due to pain in abdomen was dialyzed yesterday Last Vital Signs Temp Pulse Resp BP Pulse Ox 97.2 F L 92 H 24 H 116/73 96 06/18/18 10:51 06/18/18 09:27 06/18/18 09:27 06/18/18 09:27 06/17/18 21:00 lungs decreased breath sounds cvs s1s2 rr abd soft distended ext no edema neuro a+ox3 CBC, BMP 06/18/18 05:45 06/18/18 05:45 Current Medications Generic Name Dose Route Start Last Admin Trade Name Freq PRN Reason Stop Dose Admin Acetaminophen 650 mg 06/10/18 00:02 06/15/18 20:33 Tylenol - PO 650 mg Q4H PRN Administration HEADACHE Amiodarone HCl 200 mg 06/10/18 10:00 06/18/18 09:38 Cordarone - PO 200 mg DAILY [facility] Administration Buspirone HCl 10 mg 06/10/18 06:00 06/18/18 06:24 Buspar - PO 10 mg TID [facility] Administration Calcium Carbonate 500 mg 06/10/18 07:00 06/18/18 06:24 Os-Merlin 500mg - PO 500 mg TIDAC [facility] Administration Citalopram Hydrobromide 20 mg 06/10/18 10:00 06/18/18 09:38 Celexa - PO 20 mg DAILY [facility] Administration Collagenase 1 applic 06/10/18 10:00 06/17/18 17:25 Santyl - TP 1 applic DAILY [facility] Administration Protocol Cyanocobalamin 100 mcg 06/10/18 10:00 06/18/18 09:41 Vitamin B12 - PO 100 mcg DAILY [facility] Administration Cyclobenzaprine HCl 2.5 mg 06/13/18 12:19 06/15/18 21:42 Cyclobenzaprine Hcl PO 2.5 mg Q12H PRN Administration MUSCLE SPASMS Folic Acid 1 mg 06/10/18 10:00 06/18/18 09:47 Folic Acid - PO 1 mg DAILY [facility] Administration Heparin Sodium (Porcine) 1,000 unit 06/08/18 23:20 06/14/18 14:00 Heparin - IVPUSH 1,000 unit PRN PRN Administration Heparin Heparin Sodium (Porcine) 5,000 unit 06/08/18 23:20 Heparin - IVPUSH PRN PRN Heparin Heparin Sodium (Porcine) 25, 500 mls @ 20 mls/hr 06/08/18 23:30 06/18/18 02: 29 000 unit/ Sodium Chloride IV 900 unit/hr TITR [facility] 18 mls/hr Administration Protocol 1,000 UNIT/HR Piperacillin Sod/Tazobactam 50 mls @ 100 mls/hr 06/15/18 18:00 06/18/18 10:06 Sod 2.25 gm/ Dextrose IVPB 100 mls/hr Q8H-IV [facility] Administration Levothyroxine Sodium 125 mcg 06/10/18 06:00 06/18/18 06:24 Synthroid - PO 125 mcg DAILY@0600 [facility] Administration Lidocaine 1 patch 06/12/18 10:00 06/18/18 09:47 Lidoderm Patch - TP 1 patch DAILY [facility] Administration Midodrine 5 mg 06/08/18 10:00 06/18/18 09:40 Proamatine - PO 5 mg TID-MID [facility] Administration Miscellaneous 1 each 06/12/18 22:00 06/17/18 21:33 Lidoderm Patch Removal MC 1 each DAILY@2200 [facility] Administration Morphine Sulfate 1 mg 06/16/18 16:29 06/18/18 10:04 Morphine Sulfate IVPUSH 1 mg Q4H PRN Administration PAIN LEVEL 6-10 Multivit/Ca Carb/B Cmplx/FA/Prenat 1 tablet 06/10/18 10:00 06/18/18 09:38 Nephro-Zane - PO 1 tablet DAILY [facility] Administration Ranitidine HCl 150 mg 06/12/18 10:30 06/18/18 09:38 Zantac - PO 150 mg BID [facility] Administration Impression 1. ESRD 2. CAD 3. CABG 4. COPD 5. CHF 6. SBP 7. DVT 8. hx mesinteric ischemia 9. hypothyroidism 10. gout 11. hld 12. pleural effusion 13. anemia 14. abd pain Plan continue current management for paracentesis and transfer to tertiary care center [facility]
--- NOTE | 2018-06-18 11:57 | PN ---
Progress Note, Physician Chief Complaint: abd discomfort History of Present Illness: abdomen distended. feeling burning "indigestion" pain in belly denies sob no cp other than the indigestion, worsened by eating breakfast this morning no palpitations, syncope - Current Medication List Current Medications: Active Medications Acetaminophen (Tylenol -) 650 mg PO Q4H PRN PRN Reason: HEADACHE Last Admin: 06/15/18 20:33 Dose: 650 mg Amiodarone HCl (Cordarone -) 200 mg PO DAILY [facility] Last Admin: 06/18/18 09:38 Dose: 200 mg Buspirone HCl (Buspar -) 10 mg PO TID [facility] Last Admin: 06/18/18 06:24 Dose: 10 mg Calcium Carbonate (Os-Merlin 500mg -) 500 mg PO TIDAC [facility] Last Admin: 06/18/18 11:47 Dose: Not Given Citalopram Hydrobromide (Celexa -) 20 mg PO DAILY [facility] Last Admin: 06/18/18 09:38 Dose: 20 mg Collagenase (Santyl -) 1 applic TP DAILY [facility]; Protocol Last Admin: 06/17/18 17:25 Dose: 1 applic Cyanocobalamin (Vitamin B12 -) 100 mcg PO DAILY [facility] Last Admin: 06/18/18 09:41 Dose: 100 mcg Cyclobenzaprine HCl (Cyclobenzaprine Hcl) 2.5 mg PO Q12H PRN PRN Reason: MUSCLE SPASMS Last Admin: 06/15/18 21:42 Dose: 2.5 mg Folic Acid (Folic Acid -) 1 mg PO DAILY [facility] Last Admin: 06/18/18 09:47 Dose: 1 mg Heparin Sodium (Porcine) (Heparin -) 1,000 unit IVPUSH PRN PRN PRN Reason: Heparin Last Admin: 06/14/18 14:00 Dose: 1,000 unit Heparin Sodium (Porcine) (Heparin -) 5,000 unit IVPUSH PRN PRN PRN Reason: Heparin Heparin Sodium (Porcine) 25, (000 unit/ Sodium Chloride) 500 mls @ 20 mls/hr IV TITR [facility]; Protocol Last Admin: 06/18/18 02:29 Dose: 900 unit/hr, 18 mls/hr Piperacillin Sod/Tazobactam (Sod 2.25 gm/ Dextrose) 50 mls @ 100 mls/hr IVPB Q8H-IV [facility] Last Admin: 06/18/18 10:06 Dose: 100 mls/hr Levothyroxine Sodium (Synthroid -) 125 mcg PO DAILY@0600 [facility] Last Admin: 06/18/18 06:24 Dose: 125 mcg Lidocaine (Lidoderm Patch -) 1 patch TP DAILY [facility] Last Admin: 06/18/18 09:47 Dose: 1 patch Midodrine (Proamatine -) 5 mg PO TID-MID [facility] Last Admin: 06/18/18 09:40 Dose: 5 mg Miscellaneous (Lidoderm Patch Removal) 1 each MC DAILY@2200 [facility] Last Admin: 06/17/18 21:33 Dose: 1 each Morphine Sulfate (Morphine Sulfate) 1 mg IVPUSH Q4H PRN PRN Reason: PAIN LEVEL 6-10 Last Admin: 06/18/18 10:04 Dose: 1 mg Multivit/Ca Carb/B Cmplx/FA/Prenat (Nephro-Zane -) 1 tablet PO DAILY [facility] Last Admin: 06/18/18 09:38 Dose: 1 tablet Ranitidine HCl (Zantac -) 150 mg PO BID [facility] Last Admin: 06/18/18 09:38 Dose: 150 mg - Objective Vital Signs: Vital Signs Temperature 97.2 F L 06/18/18 10:51 Pulse Rate 92 H 06/18/18 09:27 Respiratory Rate 24 H 06/18/18 09:27 Blood Pressure 116/73 06/18/18 09:27 O2 Sat by Pulse Oximetry (%) 96 06/17/18 21:00 Constitutional: Yes: Well Nourished, No Distress, Calm Cardiovascular: Yes: Regular Rate and Rhythm, S1. No: JVD, Gallop, Murmur Respiratory: Yes: Regular, CTA Bilaterally, Diminished (bases). No: Accessory Muscle Use, Rales, Wheezes Extremities: No: Cold Edema: No Neurological: Yes: Alert, Oriented Psychiatric: No: Agitated Labs: CBC, BMP 06/18/18 05:45 06/18/18 05:45 INR, PTT INR 1.26 (0.83-1.09) H 06/15/18 16:50 Assessment/Plan Echo 05/2018 nl LV size, mildly reduced function EF 45-50%, mild global hypokinesis of LV, nl RV, ppm lead in RV and RA, tr TR EKG: sinus, prolonged QTC, old septal infarct ascites: - etiology unclear, per GI - plan is for paracentesis and transfer to tertiary center acute on chronic systolic HF: - mildly reduced EF on echo - appeared volume up as above on admit with SOB - sx's resolved with HD--volume management per renal - appears euvolemic at present time, apart from ascites which is being managed by GI - not on DELANO/BB due to low BP - pt advised to see us in f/u to maintain general cardio care in this area, as he is currently not being closely followed (for chf and cad) Prolonged QTc - avoid QT prolonging agents - maintain K >4, Mg >2 s/p ICD ([employer]) - outpatient follow up, Dr. Stover - recent device checks unremarkable per patient - cont amiodarone hypotension - continue midodrine - sbp remains 90s at times (>> 80s), but stable - same plan ESRD on HD - per renal CAD, s/p CABG - cont statin - holding aspirin due to elevated INR and anemia mesenteric ischemia - recent dx, s/p surgery during recent admission for hip fx anemia - manage per primary ascites: -GI, ID, surgery following, on abx. manage per primary Right IJ dvt: -plans per vascular, on hep gtt
--- NOTE | 2018-06-18 12:36 | PN ---
Progress Note, Physician History of Present Illness: no distress awaiting for consuelo; plan probably retap tomorrow - Current Medication List Current Medications: Active Medications Acetaminophen (Tylenol -) 650 mg PO Q4H PRN PRN Reason: HEADACHE Last Admin: 06/15/18 20:33 Dose: 650 mg Amiodarone HCl (Cordarone -) 200 mg PO DAILY [facility] Last Admin: 06/18/18 09:38 Dose: 200 mg Buspirone HCl (Buspar -) 10 mg PO TID [facility] Last Admin: 06/18/18 06:24 Dose: 10 mg Calcium Carbonate (Os-Merlin 500mg -) 500 mg PO TIDAC [facility] Last Admin: 06/18/18 11:47 Dose: Not Given Citalopram Hydrobromide (Celexa -) 20 mg PO DAILY [facility] Last Admin: 06/18/18 09:38 Dose: 20 mg Collagenase (Santyl -) 1 applic TP DAILY [facility]; Protocol Last Admin: 06/17/18 17:25 Dose: 1 applic Cyanocobalamin (Vitamin B12 -) 100 mcg PO DAILY [facility] Last Admin: 06/18/18 09:41 Dose: 100 mcg Cyclobenzaprine HCl (Cyclobenzaprine Hcl) 2.5 mg PO Q12H PRN PRN Reason: MUSCLE SPASMS Last Admin: 06/15/18 21:42 Dose: 2.5 mg Folic Acid (Folic Acid -) 1 mg PO DAILY [facility] Last Admin: 06/18/18 09:47 Dose: 1 mg Heparin Sodium (Porcine) (Heparin -) 1,000 unit IVPUSH PRN PRN PRN Reason: Heparin Last Admin: 06/14/18 14:00 Dose: 1,000 unit Heparin Sodium (Porcine) (Heparin -) 5,000 unit IVPUSH PRN PRN PRN Reason: Heparin Heparin Sodium (Porcine) 25, (000 unit/ Sodium Chloride) 500 mls @ 20 mls/hr IV TITR [facility]; Protocol Last Admin: 06/18/18 02:29 Dose: 900 unit/hr, 18 mls/hr Piperacillin Sod/Tazobactam (Sod 2.25 gm/ Dextrose) 50 mls @ 100 mls/hr IVPB Q8H-IV [facility] Last Admin: 06/18/18 10:06 Dose: 100 mls/hr Levothyroxine Sodium (Synthroid -) 125 mcg PO DAILY@0600 [facility] Last Admin: 06/18/18 06:24 Dose: 125 mcg Lidocaine (Lidoderm Patch -) 1 patch TP DAILY [facility] Last Admin: 06/18/18 09:47 Dose: 1 patch Midodrine (Proamatine -) 5 mg PO TID-MID [facility] Last Admin: 06/18/18 09:40 Dose: 5 mg Miscellaneous (Lidoderm Patch Removal) 1 each MC DAILY@2200 [facility] Last Admin: 06/17/18 21:33 Dose: 1 each Morphine Sulfate (Morphine Sulfate) 1 mg IVPUSH Q4H PRN PRN Reason: PAIN LEVEL 6-10 Last Admin: 06/18/18 10:04 Dose: 1 mg Multivit/Ca Carb/B Cmplx/FA/Prenat (Nephro-Zane -) 1 tablet PO DAILY [facility] Last Admin: 06/18/18 09:38 Dose: 1 tablet Ondansetron HCl (Zofran Injection) 4 mg IVPUSH Q4H PRN PRN Reason: NAUSEA AND/OR VOMITING Ranitidine HCl (Zantac -) 150 mg PO BID [facility] Last Admin: 06/18/18 09:38 Dose: 150 mg - Objective Vital Signs: Vital Signs Temperature 97.2 F L 06/18/18 10:51 Pulse Rate 92 H 06/18/18 09:27 Respiratory Rate 24 H 06/18/18 09:27 Blood Pressure 116/73 06/18/18 09:27 O2 Sat by Pulse Oximetry (%) 96 06/17/18 21:00 Constitutional: Yes: No Distress, Calm Cardiovascular: Yes: S1, S2 Respiratory: Yes: Regular, CTA Bilaterally Gastrointestinal: Yes: Soft, Ascites Musculoskeletal: Yes: WNL Extremities: Yes: Other Wound/Incision: Yes: Dressing Dry and Intact Neurological: Yes: Alert, Oriented Psychiatric: Yes: Alert, Oriented Labs: CBC, BMP 06/18/18 05:45 06/18/18 05:45 INR, PTT INR 1.26 (0.83-1.09) H 06/15/18 16:50 Assessment/Plan ASSESSMENT AND PLAN: (1) Hypotension Code(s): I95.9 - HYPOTENSION, UNSPECIFIED (2) ESRD (end stage renal disease) Code(s): N18.6 - END STAGE RENAL DISEASE (3) Ascites Code(s): R18.8 - OTHER ASCITES (4) Supratherapeutic INR Code(s): R79.1 - ABNORMAL COAGULATION PROFILE (5) CAD (coronary artery disease) Code(s): I25.10 - ATHSCL HEART DISEASE OF [place] CORONARY ARTERY W/O ANG PCTRS (6) CHF (congestive heart failure) Code(s): I50.9 - HEART FAILURE, UNSPECIFIED Qualifiers: Heart failure chronicity: acute on chronic (7) Hypothyroid Code(s): E03.9 - HYPOTHYROIDISM, UNSPECIFIED (8) SBP (secondary bacterial peritonitis) Code(s): K65.2 - SPONTANEOUS BACTERIAL PERITONITIS (9) Anxiety -consult psychiatry 10 b/l heel ulcer plan continue abx get the patient tapped awaiting for final plan rest as per the team
[2018-06-18] MEDS: ONDANSETRON 4 MG/2 ML VIAL IVPUSH PRN ×2 (14:36→18:51)
--- NOTE | 2018-06-18 15:34 | PN ---
GI Progress Note Subjective: GI Note ( covering Dr Todd): Pain persists. Unable to tolerate more than a few sips of liquids. Afebrile and WBC stable however. Jaya now tells me that he would be amenable to [facility] transfer and regrets that he declined. - Objective Vital Signs: Vital Signs Temperature 97.3 F L 06/18/18 14:01 Pulse Rate 66 06/18/18 14:01 Respiratory Rate 20 06/18/18 14:01 Blood Pressure 93/49 L 06/18/18 14:01 O2 Sat by Pulse Oximetry (%) 96 06/17/18 21:00 Laboratory Tests 06/13/18 06/16/18 06/18/18 09:35 06:08 05:45 WBC 4.8 5.4 6.4 Hgb 11.2 L BUN Creatinine 06/18/18 05:45 WBC Hgb BUN 9 Creatinine 3.1 H Constitutional: Calm ...Auscultate: Yes: Hypoactive Bowel Sounds ...Palpate: Yes: Soft, Other (no focal tenderness or peritoneal signs) Labs: CBC, BMP 06/18/18 05:45 06/18/18 05:45 INR, PTT INR 1.26 (0.83-1.09) H 06/15/18 16:50 Assessment/Plan Pain due to infected ascites on antibiotics Awaiting transfer to tertiary care center Dr Todd will return tomorrow Problem List - Problems (1) SBP (spontaneous bacterial peritonitis) Assessment/Plan: Pain due to infected ascites. Anticipating paracentesis tomorrow. Will inform Dr Todd that [facility] is a transfer option if [facility] doesn't transfer Jaya dickerson. Code(s): K65.2 - SPONTANEOUS BACTERIAL PERITONITIS (2) Abdominal pain Code(s): R10.9 - UNSPECIFIED ABDOMINAL PAIN (3) Ischemic colitis Code(s): K55.9 - VASCULAR DISORDER OF INTESTINE, UNSPECIFIED (4) Ascites Code(s): R18.8 - OTHER ASCITES Qualifiers: Ascites type: other type Qualified Code(s): R18.8 - Other ascites (5) S/P partial colectomy Code(s): Z90.49 - ACQUIRED ABSENCE OF OTHER SPECIFIED PARTS OF DIGESTIVE TRACT
--- NOTE | 2018-06-18 16:13 | PN ---
Progress Note, Physician Chief Complaint: Mr Schaeffer is still having back and abdominal pain with nausea and vomiting when eating. No cp or sob. - Current Medication List Current Medications: Active Medications Acetaminophen (Tylenol -) 650 mg PO Q4H PRN PRN Reason: HEADACHE Last Admin: 06/15/18 20:33 Dose: 650 mg Amiodarone HCl (Cordarone -) 200 mg PO DAILY [facility] Last Admin: 06/18/18 09:38 Dose: 200 mg Buspirone HCl (Buspar -) 10 mg PO TID [facility] Last Admin: 06/18/18 15:28 Dose: 10 mg Calcium Carbonate (Os-Merlin 500mg -) 500 mg PO TIDAC [facility] Last Admin: 06/18/18 11:47 Dose: Not Given Citalopram Hydrobromide (Celexa -) 20 mg PO DAILY [facility] Last Admin: 06/18/18 09:38 Dose: 20 mg Collagenase (Santyl -) 1 applic TP DAILY [facility]; Protocol Last Admin: 06/17/18 17:25 Dose: 1 applic Cyanocobalamin (Vitamin B12 -) 100 mcg PO DAILY [facility] Last Admin: 06/18/18 09:41 Dose: 100 mcg Cyclobenzaprine HCl (Cyclobenzaprine Hcl) 2.5 mg PO Q12H PRN PRN Reason: MUSCLE SPASMS Last Admin: 06/15/18 21:42 Dose: 2.5 mg Folic Acid (Folic Acid -) 1 mg PO DAILY [facility] Last Admin: 06/18/18 09:47 Dose: 1 mg Heparin Sodium (Porcine) (Heparin -) 1,000 unit IVPUSH PRN PRN PRN Reason: Heparin Stop: 06/18/18 22:00 Last Admin: 06/14/18 14:00 Dose: 1,000 unit Heparin Sodium (Porcine) (Heparin -) 5,000 unit IVPUSH PRN PRN PRN Reason: Heparin Stop: 06/18/18 22:00 Heparin Sodium (Porcine) 25, (000 unit/ Sodium Chloride) 500 mls @ 20 mls/hr IV TITR [facility]; Protocol Stop: 06/18/18 22:00 Last Admin: 06/18/18 02:29 Dose: 900 unit/hr, 18 mls/hr Piperacillin Sod/Tazobactam (Sod 2.25 gm/ Dextrose) 50 mls @ 100 mls/hr IVPB Q8H-IV [facility] Last Admin: 06/18/18 10:06 Dose: 100 mls/hr Levothyroxine Sodium (Synthroid -) 125 mcg PO DAILY@0600 [facility] Last Admin: 06/18/18 06:24 Dose: 125 mcg Lidocaine (Lidoderm Patch -) 1 patch TP DAILY [facility] Last Admin: 06/18/18 09:47 Dose: 1 patch Midodrine (Proamatine -) 5 mg PO TID-MID [facility] Last Admin: 06/18/18 14:35 Dose: Not Given Miscellaneous (Lidoderm Patch Removal) 1 each MC DAILY@2200 [facility] Last Admin: 06/17/18 21:33 Dose: 1 each Morphine Sulfate (Morphine Sulfate) 1 mg IVPUSH Q4H PRN PRN Reason: PAIN LEVEL 6-10 Last Admin: 06/18/18 10:04 Dose: 1 mg Multivit/Ca Carb/B Cmplx/FA/Prenat (Nephro-Zane -) 1 tablet PO DAILY [facility] Last Admin: 06/18/18 09:38 Dose: 1 tablet Ondansetron HCl (Zofran Injection) 4 mg IVPUSH Q4H PRN PRN Reason: NAUSEA AND/OR VOMITING Last Admin: 06/18/18 14:36 Dose: 4 mg Ranitidine HCl (Zantac -) 150 mg PO BID [facility] Last Admin: 06/18/18 09:38 Dose: 150 mg - Objective Vital Signs: Vital Signs Temperature 36.3 C L 06/18/18 14:01 Pulse Rate 66 06/18/18 14:01 Respiratory Rate 20 06/18/18 14:01 Blood Pressure 93/49 L 06/18/18 14:01 O2 Sat by Pulse Oximetry (%) 96 06/17/18 21:00 Constitutional: Yes: Well Nourished, No Distress, Calm Cardiovascular: Yes: Regular Rate and Rhythm. No: Gallop, Murmur, Rub Respiratory: Yes: Regular, CTA Bilaterally. No: Rales, Rhonchi, Wheezes Gastrointestinal: Yes: Normal Bowel Sounds, Ascites, Distention, Tenderness. No : Soft Extremities: Yes: WNL Edema: No Labs: CBC, BMP 06/18/18 05:45 06/18/18 05:45 INR, PTT INR 1.26 (0.83-1.09) H 06/15/18 16:50 Problem List - Problems (1) Hypotension Code(s): I95.9 - HYPOTENSION, UNSPECIFIED (2) ESRD (end stage renal disease) Code(s): N18.6 - END STAGE RENAL DISEASE (3) Ascites Code(s): R18.8 - OTHER ASCITES Qualifiers: Ascites type: other type Qualified Code(s): R18.8 - Other ascites (4) Supratherapeutic INR Code(s): R79.1 - ABNORMAL COAGULATION PROFILE (5) CAD (coronary artery disease) Code(s): I25.10 - ATHSCL HEART DISEASE OF [place] CORONARY ARTERY W/O ANG PCTRS Qualifiers: Coronary Disease-Associated Artery/Lesion type: [place] artery [place] vs. transplanted heart: [place] heart Associated angina: without angina Qualified Code(s): I25.10 - Atherosclerotic heart disease of [place] coronary artery without angina pectoris (6) CHF (congestive heart failure) Code(s): I50.9 - HEART FAILURE, UNSPECIFIED Qualifiers: Heart failure type: unspecified Heart failure chronicity: acute on chronic Qualified Code(s): I50.9 - Heart failure, unspecified (7) Hypothyroid Code(s): E03.9 - HYPOTHYROIDISM, UNSPECIFIED Qualifiers: Hypothyroidism type: unspecified Qualified Code(s): E03.9 - Hypothyroidism , unspecified (8) SBP (spontaneous bacterial peritonitis) Code(s): K65.2 - SPONTANEOUS BACTERIAL PERITONITIS Assessment/Plan (1) Hypotension Assessment/Plan: -continue midodrine -stable Code(s): I95.9 - HYPOTENSION, UNSPECIFIED (2) ESRD (end stage renal disease) Assessment/Plan: -nephrology following and managing HD Code(s): N18.6 - END STAGE RENAL DISEASE (3) Ascites Assessment/Plan: -paracentesis tomorrow -hold heparin tonight at 10pm Code(s): R18.8 - OTHER ASCITES (4) Supratherapeutic INR Assessment/Plan: -normalized -now on heparin gtt for VTE -will need bridge back to coumadin when planning for discharge Code(s): R79.1 - ABNORMAL COAGULATION PROFILE (5) CAD (coronary artery disease) Assessment/Plan: -quiescent Code(s): I25.10 - ATHSCL HEART DISEASE OF [place] CORONARY ARTERY W/O ANG PCTRS (6) CHF (congestive heart failure) Assessment/Plan: -treating with HD Code(s): I50.9 - HEART FAILURE, UNSPECIFIED Qualifiers: Heart failure chronicity: acute on chronic (7) Hypothyroid Assessment/Plan: -continue synthroid Code(s): E03.9 - HYPOTHYROIDISM, UNSPECIFIED (8) SBP (secondary bacterial peritonitis) Assessment/Plan: -continue zosyn per ID -paracentesis planned for tomorrow Code(s): K65.2 - SPONTANEOUS BACTERIAL PERITONITIS (9) Anxiety -continue buspar (10) Anemia -stable
[2018-06-18] MEDS: COLLAGENASE CLOSTRIDIUM HIST. 30 GRAMS TUBE TP SCH (18:51)
[2018-06-18] MEDS: LIDOCAINE PATCH REMOVAL MC SCH (21:59)
[2018-06-19] MEDS ORDERED: MAG HYDROX/AL HYDROX/SIMETH 30 ML UNIT-DOSE CUP PO ONE (01:07)
[2018-06-19] MEDS ORDERED: PIPERACILLIN/TAZOBACTAM 2.25 GM VIAL IVPB ONE ×3 (01:16→18:49)
[2018-06-19] MEDS ORDERED: DEXTROSE 5%-WATER - 50 ML IVPB ONE ×3 (01:16→18:49)
[2018-06-19] MEDS: PIPERACILLIN/TAZOB 2.25 GM 2.25 GM in DEXTROSE 5%-WATER - 50 ML IVPB SCH ×3 (01:20→19:01)
[2018-06-19] MEDS: ONDANSETRON 4 MG/2 ML VIAL IVPUSH PRN (02:25)
[2018-06-19] MEDS: busPIRone HCL 10 MG TABLET (FP) PO SCH ×3 (06:05→21:44)
[2018-06-19] MEDS: CALCIUM (OYSTER SHELL) 500 MG TABLET (FP) PO SCH ×3 (06:05→18:45)
[2018-06-19] MEDS: LEVOTHYROXINE NA 125 MCG TABLET (FP) PO SCH (06:05)
[2018-06-19] MEDS: BANATROL PLUS POWDER PACKET PO SCH ×3 (06:05→21:53)
[2018-06-19 08:27] LABS: BASO % 0.4 % (0-2.0); HEMATOCRIT 34.8 % (35.4-49); HEMOGLOBIN 11.1 GM/dL (11.7-16.9); LYMPH % 3.4 % (8-40); MCH 32.4 pg (25.7-33.7); MEAN CELL VOLUME 101.3 fl (80-96); MEAN PLT VOLUME 8.3 fl (7.5-11.1); MONO % 3.5 % (3.8-10.2); NEUT % 92.7 % (42.8-82.8); PLATELET COUNT 120 K/MM3 (134-434); RBC 3.44 M/mm3 (4.00-5.60); RDW 28.7 % (11.9-15.9); WHITE BLOOD COUNT 16.1 K/mm3 (4.0-10.0)
[2018-06-19 08:30] LABS: ALBUMIN 2.7 g/dl (3.4-5.0); ALK PHOS 261 U/L (45-117); ANION GAP 12 MMOL/L (8-16); BILIRUBIN,TOTAL 0.9 mg/dL (0.2-1); BLOOD UREA NITROGEN 15 mg/dL (7-18); CALCIUM 8.8 mg/dL (8.5-10.1); CHLORIDE 102 mmol/L (98-107); CO2 27 mmol/L (21-32); GLUCOSE,RANDOM 140 mg/dL (74-106); MAGNESIUM 1.9 mg/dL (1.8-2.4); POTASSIUM 3.7 mmol/L (3.5-5.1); SGOT/AST 23 U/L (15-37); SGPT/ALT 23 U/L (13-61); SODIUM 141 mmol/L (136-145); TOT PROT 5.3 g/dl (6.4-8.2)
[2018-06-19] MEDS ORDERED: PT OWN MED DRAWER 7, Y5N ONE ×6 (09:39→21:18)
[2018-06-19] MEDS: MIDODRINE HCL 2.5 MG TABLET PO SCH ×3 (09:55→19:00)
--- NOTE | 2018-06-19 10:45 | EKG ---
Test Reason : Blood Pressure : / mmHG Vent. Rate : 090 BPM Atrial Rate : 090 BPM P-R Int : 204 ms QRS Dur : 104 ms QT Int : 428 ms P-R-T Axes : 039 058 -36 degrees QTc Int : 523 ms NORMAL SINUS RHYTHM SEPTAL INFARCT (CITED ON OR BEFORE 31-MAY-2018) T WAVE ABNORMALITY, CONSIDER INFERIOR ISCHEMIA PROLONGED QT ABNORMAL ECG WHEN COMPARED WITH ECG OF 31-MAY-2018 16:35, T WAVE VARIATION Confirmed by JOSEPH ASHTON, CHELSEA ([id number]) on 06/19/2018 10:44:56 AM Referred By: DEVON MERRITT Confirmed By:CHELSEA RUIZ MD
[2018-06-19] MEDS: CITALOPRAM HYDROBROMIDE 20 MG TABLET (FP) PO SCH (11:35)
[2018-06-19] MEDS: LIDOCAINE 5% TOPICAL PATCH TP SCH (11:35)
[2018-06-19] MEDS: FOLIC ACID 1 MG TABLET (FP) PO SCH (11:36)
[2018-06-19] MEDS: CYANOCOBALAMIN (VITAMIN B-12) 100 MCG TABLET PO SCH (11:37)
[2018-06-19] MEDS: VITAMIN B COMP W-C 1 EA TABLET PO SCH (11:37)
[2018-06-19] MEDS: AMIODARONE HCL 200 MG TABLET (FP) PO SCH (11:44)
[2018-06-19] MEDS: RANITIDINE HCL 150 MG TABLET (FP) PO SCH ×2 (11:44→21:44)
[2018-06-19 12:33] LABS: ANISOCYTOSIS 1+; MACROCYTOSIS 1+; PLATELET ESTIMATE DECREASED
--- NOTE | 2018-06-19 12:38 | PN ---
Progress Note, Physician Chief Complaint: Mr Schaeffer was short of breath this morning but was secondary to anxiety. Currently feeling better and denying cp, sob, n/v. - Current Medication List Current Medications: Active Medications Acetaminophen (Tylenol -) 650 mg PO Q4H PRN PRN Reason: HEADACHE Last Admin: 06/15/18 20:33 Dose: 650 mg Amiodarone HCl (Cordarone -) 200 mg PO DAILY [facility] Last Admin: 06/19/18 11:44 Dose: Not Given Buspirone HCl (Buspar -) 10 mg PO TID [facility] Last Admin: 06/19/18 06:05 Dose: Not Given Calcium Carbonate (Os-Merlin 500mg -) 500 mg PO TIDAC [facility] Last Admin: 06/19/18 11:37 Dose: Not Given Citalopram Hydrobromide (Celexa -) 20 mg PO DAILY [facility] Last Admin: 06/19/18 11:35 Dose: Not Given Collagenase (Santyl -) 1 applic TP DAILY [facility]; Protocol Last Admin: 06/18/18 18:51 Dose: 1 applic Cyanocobalamin (Vitamin B12 -) 100 mcg PO DAILY [facility] Last Admin: 06/19/18 11:37 Dose: Not Given Cyclobenzaprine HCl (Cyclobenzaprine Hcl) 2.5 mg PO Q12H PRN PRN Reason: MUSCLE SPASMS Last Admin: 06/15/18 21:42 Dose: 2.5 mg Folic Acid (Folic Acid -) 1 mg PO DAILY [facility] Last Admin: 06/19/18 11:36 Dose: Not Given Piperacillin Sod/Tazobactam (Sod 2.25 gm/ Dextrose) 50 mls @ 100 mls/hr IVPB Q8H-IV [facility] Last Admin: 06/19/18 09:57 Dose: 100 mls/hr Levothyroxine Sodium (Synthroid -) 125 mcg PO DAILY@0600 [facility] Last Admin: 06/19/18 06:05 Dose: Not Given Lidocaine (Lidoderm Patch -) 1 patch TP DAILY [facility] Last Admin: 06/19/18 11:35 Dose: 1 patch Midodrine (Proamatine -) 5 mg PO TID-MID [facility] Last Admin: 06/19/18 09:55 Dose: 5 mg Miscellaneous (Lidoderm Patch Removal) 1 each MC DAILY@2200 [facility] Last Admin: 06/18/18 21:59 Dose: 1 each Morphine Sulfate (Morphine Sulfate) 1 mg IVPUSH Q4H PRN PRN Reason: PAIN LEVEL 6-10 Last Admin: 06/18/18 18:31 Dose: 1 mg Multivit/Ca Carb/B Cmplx/FA/Prenat (Nephro-Zane -) 1 tablet PO DAILY [facility] Last Admin: 06/19/18 11:37 Dose: Not Given Ondansetron HCl (Zofran Injection) 4 mg IVPUSH Q4H PRN PRN Reason: NAUSEA AND/OR VOMITING Last Admin: 06/19/18 02:25 Dose: 4 mg Ranitidine HCl (Zantac -) 150 mg PO BID [facility] Last Admin: 06/19/18 11:44 Dose: Not Given - Objective Vital Signs: Vital Signs Temperature 36.3 C L 06/19/18 09:05 Pulse Rate 80 06/19/18 11:42 Respiratory Rate 20 06/19/18 11:42 Blood Pressure 80/42 L 06/19/18 11:42 O2 Sat by Pulse Oximetry (%) 95 06/18/18 21:00 Constitutional: Yes: Well Nourished, No Distress, Calm Cardiovascular: Yes: Regular Rate and Rhythm. No: Gallop, Murmur, Rub Respiratory: Yes: Regular, CTA Bilaterally. No: Rales, Rhonchi, Wheezes Gastrointestinal: Yes: Normal Bowel Sounds, Ascites, Distention. No: Tenderness Extremities: Yes: WNL Edema: No Labs: CBC, BMP 06/19/18 07:10 06/19/18 07:10 INR, PTT INR 1.26 (0.83-1.09) H 06/15/18 16:50 Problem List - Problems (1) Hypotension Code(s): I95.9 - HYPOTENSION, UNSPECIFIED (2) ESRD (end stage renal disease) Code(s): N18.6 - END STAGE RENAL DISEASE (3) Ascites Code(s): R18.8 - OTHER ASCITES Qualifiers: Ascites type: other type Qualified Code(s): R18.8 - Other ascites (4) Supratherapeutic INR Code(s): R79.1 - ABNORMAL COAGULATION PROFILE (5) CAD (coronary artery disease) Code(s): I25.10 - ATHSCL HEART DISEASE OF [place] CORONARY ARTERY W/O ANG PCTRS Qualifiers: Coronary Disease-Associated Artery/Lesion type: [place] artery [place] vs. transplanted heart: [place] heart Associated angina: without angina Qualified Code(s): I25.10 - Atherosclerotic heart disease of [place] coronary artery without angina pectoris (6) CHF (congestive heart failure) Code(s): I50.9 - HEART FAILURE, UNSPECIFIED Qualifiers: Heart failure type: unspecified Heart failure chronicity: acute on chronic Qualified Code(s): I50.9 - Heart failure, unspecified (7) Hypothyroid Code(s): E03.9 - HYPOTHYROIDISM, UNSPECIFIED Qualifiers: Hypothyroidism type: unspecified Qualified Code(s): E03.9 - Hypothyroidism , unspecified (8) SBP (spontaneous bacterial peritonitis) Code(s): K65.2 - SPONTANEOUS BACTERIAL PERITONITIS Assessment/Plan (1) Hypotension Assessment/Plan: -episode of hypotension earlier, now back to baseline -suspect secondary to patient not taking midodrine from emesis -tolerating midodrine, will continue -will need albumin with paracentesis Code(s): I95.9 - HYPOTENSION, UNSPECIFIED (2) ESRD (end stage renal disease) Assessment/Plan: -nephrology following and managing HD Code(s): N18.6 - END STAGE RENAL DISEASE (3) Ascites Assessment/Plan: -attempted paracentesis today but was unstable this morning -will try again tomorrow -continue midodrine -restart heparin gtt, stop at 0400 tomorrow -plan for paracentesis tomorrow, large volume -will need albumin after paracentesis Code(s): R18.8 - OTHER ASCITES (4) Supratherapeutic INR Assessment/Plan: -restart heparin gtt -stop at 0400 for paracentesis Code(s): R79.1 - ABNORMAL COAGULATION PROFILE (5) CAD (coronary artery disease) Assessment/Plan: -quiescent Code(s): I25.10 - ATHSCL HEART DISEASE OF [place] CORONARY ARTERY W/O ANG PCTRS (6) CHF (congestive heart failure) Assessment/Plan: -treating with HD Code(s): I50.9 - HEART FAILURE, UNSPECIFIED Qualifiers: Heart failure chronicity: acute on chronic (7) Hypothyroid Assessment/Plan: -continue synthroid Code(s): E03.9 - HYPOTHYROIDISM, UNSPECIFIED (8) SBP (secondary bacterial peritonitis) Assessment/Plan: -continue zosyn per ID -paracentesis planned for tomorrow Code(s): K65.2 - SPONTANEOUS BACTERIAL PERITONITIS (9) Anxiety -continue buspar (10) Anemia -stable
--- NOTE | 2018-06-19 12:40 | PN ---
Progress Note, Physician Chief Complaint: abd pain History of Present Illness: no more abd pain, but distended. awaiting tap today no cp no sob no palpitations - Current Medication List Current Medications: Active Medications Acetaminophen (Tylenol -) 650 mg PO Q4H PRN PRN Reason: HEADACHE Last Admin: 06/15/18 20:33 Dose: 650 mg Amiodarone HCl (Cordarone -) 200 mg PO DAILY [facility] Last Admin: 06/19/18 11:44 Dose: Not Given Buspirone HCl (Buspar -) 10 mg PO TID [facility] Last Admin: 06/19/18 06:05 Dose: Not Given Calcium Carbonate (Os-Merlin 500mg -) 500 mg PO TIDAC [facility] Last Admin: 06/19/18 11:37 Dose: Not Given Citalopram Hydrobromide (Celexa -) 20 mg PO DAILY [facility] Last Admin: 06/19/18 11:35 Dose: Not Given Collagenase (Santyl -) 1 applic TP DAILY [facility]; Protocol Last Admin: 06/18/18 18:51 Dose: 1 applic Cyanocobalamin (Vitamin B12 -) 100 mcg PO DAILY [facility] Last Admin: 06/19/18 11:37 Dose: Not Given Cyclobenzaprine HCl (Cyclobenzaprine Hcl) 2.5 mg PO Q12H PRN PRN Reason: MUSCLE SPASMS Last Admin: 06/15/18 21:42 Dose: 2.5 mg Folic Acid (Folic Acid -) 1 mg PO DAILY [facility] Last Admin: 06/19/18 11:36 Dose: Not Given Piperacillin Sod/Tazobactam (Sod 2.25 gm/ Dextrose) 50 mls @ 100 mls/hr IVPB Q8H-IV [facility] Last Admin: 06/19/18 09:57 Dose: 100 mls/hr Levothyroxine Sodium (Synthroid -) 125 mcg PO DAILY@0600 [facility] Last Admin: 06/19/18 06:05 Dose: Not Given Lidocaine (Lidoderm Patch -) 1 patch TP DAILY [facility] Last Admin: 06/19/18 11:35 Dose: 1 patch Midodrine (Proamatine -) 5 mg PO TID-MID [facility] Last Admin: 06/19/18 09:55 Dose: 5 mg Miscellaneous (Lidoderm Patch Removal) 1 each MC DAILY@2200 [facility] Last Admin: 06/18/18 21:59 Dose: 1 each Morphine Sulfate (Morphine Sulfate) 1 mg IVPUSH Q4H PRN PRN Reason: PAIN LEVEL 6-10 Last Admin: 06/18/18 18:31 Dose: 1 mg Multivit/Ca Carb/B Cmplx/FA/Prenat (Nephro-Zane -) 1 tablet PO DAILY [facility] Last Admin: 06/19/18 11:37 Dose: Not Given Ondansetron HCl (Zofran Injection) 4 mg IVPUSH Q4H PRN PRN Reason: NAUSEA AND/OR VOMITING Last Admin: 06/19/18 02:25 Dose: 4 mg Ranitidine HCl (Zantac -) 150 mg PO BID [facility] Last Admin: 06/19/18 11:44 Dose: Not Given - Objective Vital Signs: Vital Signs Temperature 97.3 F L 06/19/18 09:05 Pulse Rate 80 06/19/18 11:42 Respiratory Rate 20 06/19/18 11:42 Blood Pressure 80/42 L 06/19/18 11:42 O2 Sat by Pulse Oximetry (%) 95 06/18/18 21:00 Constitutional: Yes: Well Nourished, No Distress, Calm Cardiovascular: Yes: Regular Rate and Rhythm, S1, S2. No: JVD, Gallop, Murmur Respiratory: Yes: Regular, CTA Bilaterally. No: Accessory Muscle Use, Rales, Wheezes Extremities: No: Cold Edema: No Neurological: Yes: Alert, Oriented Psychiatric: No: Agitated Labs: CBC, BMP 06/19/18 07:10 06/19/18 07:10 INR, PTT INR 1.26 (0.83-1.09) H 06/15/18 16:50 Assessment/Plan Echo 05/2018 nl LV size, mildly reduced function EF 45-50%, mild global hypokinesis of LV, nl RV, ppm lead in RV and RA, tr TR EKG: sinus, prolonged QTC, old septal infarct ascites: - etiology unclear, per GI - plan is for paracentesis and transfer to tertiary center acute on chronic systolic HF: - mildly reduced EF on echo - appeared volume up as above on admit with SOB - sx's resolved with HD--volume management per renal - appears euvolemic at present time, apart from ascites which is being managed by GI - not on DELANO/BB due to low BP - pt advised to see us in f/u to maintain general cardio care in this area, as he is currently not being closely followed (for chf and cad) Prolonged QTc - avoid QT prolonging agents - maintain K >4, Mg >2 s/p ICD ([employer]) - outpatient follow up, Dr. Stover - recent device checks unremarkable per patient - cont amiodarone hypotension - continue midodrine - sbp remains 90s at times (>> 80s), but stable - same plan ESRD on HD - per renal CAD, s/p CABG - cont statin - holding aspirin due to elevated INR and anemia mesenteric ischemia - recent dx, s/p surgery during recent admission for hip fx anemia - manage per primary ascites: -GI, ID, surgery following, on abx. manage per primary Right IJ dvt: -plans per vascular, on hep gtt
--- NOTE | 2018-06-19 14:32 | PN ---
Progress Note, Physician History of Present Illness: patient was hypotensive patient was vomiting patient unstable - Current Medication List Current Medications: Active Medications Acetaminophen (Tylenol -) 650 mg PO Q4H PRN PRN Reason: HEADACHE Last Admin: 06/15/18 20:33 Dose: 650 mg Amiodarone HCl (Cordarone -) 200 mg PO DAILY [facility] Last Admin: 06/19/18 11:44 Dose: Not Given Buspirone HCl (Buspar -) 10 mg PO TID [facility] Last Admin: 06/19/18 14:30 Dose: Not Given Calcium Carbonate (Os-Merlin 500mg -) 500 mg PO TIDAC [facility] Last Admin: 06/19/18 11:37 Dose: Not Given Citalopram Hydrobromide (Celexa -) 20 mg PO DAILY [facility] Last Admin: 06/19/18 11:35 Dose: Not Given Collagenase (Santyl -) 1 applic TP DAILY [facility]; Protocol Last Admin: 06/18/18 18:51 Dose: 1 applic Cyanocobalamin (Vitamin B12 -) 100 mcg PO DAILY [facility] Last Admin: 06/19/18 11:37 Dose: Not Given Cyclobenzaprine HCl (Cyclobenzaprine Hcl) 2.5 mg PO Q12H PRN PRN Reason: MUSCLE SPASMS Last Admin: 06/15/18 21:42 Dose: 2.5 mg Folic Acid (Folic Acid -) 1 mg PO DAILY [facility] Last Admin: 06/19/18 11:36 Dose: Not Given Piperacillin Sod/Tazobactam (Sod 2.25 gm/ Dextrose) 50 mls @ 100 mls/hr IVPB Q8H-IV [facility] Last Admin: 06/19/18 09:57 Dose: 100 mls/hr Levothyroxine Sodium (Synthroid -) 125 mcg PO DAILY@0600 [facility] Last Admin: 06/19/18 06:05 Dose: Not Given Lidocaine (Lidoderm Patch -) 1 patch TP DAILY [facility] Last Admin: 06/19/18 11:35 Dose: 1 patch Midodrine (Proamatine -) 5 mg PO TID-MID [facility] Last Admin: 06/19/18 14:26 Dose: 5 mg Miscellaneous (Lidoderm Patch Removal) 1 each MC DAILY@2200 [facility] Last Admin: 06/18/18 21:59 Dose: 1 each Morphine Sulfate (Morphine Sulfate) 1 mg IVPUSH Q4H PRN PRN Reason: PAIN LEVEL 6-10 Last Admin: 06/18/18 18:31 Dose: 1 mg Multivit/Ca Carb/B Cmplx/FA/Prenat (Nephro-Zane -) 1 tablet PO DAILY [facility] Last Admin: 06/19/18 11:37 Dose: Not Given Ondansetron HCl (Zofran Injection) 4 mg IVPUSH Q4H PRN PRN Reason: NAUSEA AND/OR VOMITING Last Admin: 06/19/18 02:25 Dose: 4 mg Ranitidine HCl (Zantac -) 150 mg PO BID [facility] Last Admin: 06/19/18 11:44 Dose: Not Given - Objective Vital Signs: Vital Signs Temperature 97.5 F L 06/19/18 13:54 Pulse Rate 74 06/19/18 13:54 Respiratory Rate 24 H 06/19/18 13:54 Blood Pressure 103/53 L 06/19/18 13:54 O2 Sat by Pulse Oximetry (%) 95 06/18/18 21:00 Constitutional: Yes: Calm, Other (stable now) Cardiovascular: Yes: S1, S2 Respiratory: Yes: Regular, CTA Bilaterally Gastrointestinal: Yes: Normal Bowel Sounds, Soft Musculoskeletal: Yes: WNL Extremities: Yes: Other Neurological: Yes: Alert, Oriented Psychiatric: Yes: Alert Labs: CBC, BMP 06/19/18 07:10 06/19/18 07:10 INR, PTT INR 1.26 (0.83-1.09) H 06/15/18 16:50 Assessment/Plan ASSESSMENT AND PLAN: (1) Hypotension Code(s): I95.9 - HYPOTENSION, UNSPECIFIED (2) ESRD (end stage renal disease) Code(s): N18.6 - END STAGE RENAL DISEASE (3) Ascites Code(s): R18.8 - OTHER ASCITES (4) Supratherapeutic INR Code(s): R79.1 - ABNORMAL COAGULATION PROFILE (5) CAD (coronary artery disease) Code(s): I25.10 - ATHSCL HEART DISEASE OF [place] CORONARY ARTERY W/O ANG PCTRS (6) CHF (congestive heart failure) Code(s): I50.9 - HEART FAILURE, UNSPECIFIED Qualifiers: Heart failure chronicity: acute on chronic (7) Hypothyroid Code(s): E03.9 - HYPOTHYROIDISM, UNSPECIFIED (8) SBP (secondary bacterial peritonitis) Code(s): K65.2 - SPONTANEOUS BACTERIAL PERITONITIS (9) Anxiety -consult psychiatry 10 b/l heel ulcer plan continue abx repeat tap surgery to see the patient rest continue current mgmt once we have all the results then will decide further
[2018-06-19] MEDS ORDERED: HEPARIN NA (PORCINE) 5,000 UNITS/ML 1ML VIAL IVPUSH PRN ×2 (15:14)
[2018-06-19] MEDS ORDERED: HEPARIN - 25,000 UNIT in SODIUM CHLORIDE 495 ML IV SCH (15:15)
--- NOTE | 2018-06-19 16:50 | PN ---
Progress Note, Physician History of Present Illness: Pt seen and examined at bedside. He is awake and alert. He did not go for paracentesis today. - Current Medication List Current Medications: Active Medications Acetaminophen (Tylenol -) 650 mg PO Q4H PRN PRN Reason: HEADACHE Last Admin: 06/15/18 20:33 Dose: 650 mg Amiodarone HCl (Cordarone -) 200 mg PO DAILY [facility] Last Admin: 06/19/18 11:44 Dose: Not Given Buspirone HCl (Buspar -) 10 mg PO TID [facility] Last Admin: 06/19/18 14:30 Dose: Not Given Calcium Carbonate (Os-Merlin 500mg -) 500 mg PO TIDAC [facility] Last Admin: 06/19/18 11:37 Dose: Not Given Citalopram Hydrobromide (Celexa -) 20 mg PO DAILY [facility] Last Admin: 06/19/18 11:35 Dose: Not Given Collagenase (Santyl -) 1 applic TP DAILY [facility]; Protocol Last Admin: 06/18/18 18:51 Dose: 1 applic Cyanocobalamin (Vitamin B12 -) 100 mcg PO DAILY [facility] Last Admin: 06/19/18 11:37 Dose: Not Given Cyclobenzaprine HCl (Cyclobenzaprine Hcl) 2.5 mg PO Q12H PRN PRN Reason: MUSCLE SPASMS Last Admin: 06/15/18 21:42 Dose: 2.5 mg Folic Acid (Folic Acid -) 1 mg PO DAILY [facility] Last Admin: 06/19/18 11:36 Dose: Not Given Heparin Sodium (Porcine) (Heparin -) 1,000 unit IVPUSH PRN PRN PRN Reason: Heparin Heparin Sodium (Porcine) (Heparin -) 5,000 unit IVPUSH PRN PRN PRN Reason: Heparin Piperacillin Sod/Tazobactam (Sod 2.25 gm/ Dextrose) 50 mls @ 100 mls/hr IVPB Q8H-IV [facility] Last Admin: 06/19/18 09:57 Dose: 100 mls/hr Heparin Sodium (Porcine) 25, (000 unit/ Sodium Chloride) 500 mls @ 20 mls/hr IV TITR [facility]; Protocol Stop: 06/20/18 04:00 Levothyroxine Sodium (Synthroid -) 125 mcg PO DAILY@0600 [facility] Last Admin: 06/19/18 06:05 Dose: Not Given Lidocaine (Lidoderm Patch -) 1 patch TP DAILY [facility] Last Admin: 06/19/18 11:35 Dose: 1 patch Midodrine (Proamatine -) 5 mg PO TID-MID [facility] Last Admin: 06/19/18 14:26 Dose: 5 mg Miscellaneous (Lidoderm Patch Removal) 1 each MC DAILY@2200 [facility] Last Admin: 06/18/18 21:59 Dose: 1 each Morphine Sulfate (Morphine Sulfate) 1 mg IVPUSH Q4H PRN PRN Reason: PAIN LEVEL 6-10 Last Admin: 06/18/18 18:31 Dose: 1 mg Multivit/Ca Carb/B Cmplx/FA/Prenat (Nephro-Zane -) 1 tablet PO DAILY [facility] Last Admin: 06/19/18 11:37 Dose: Not Given Ondansetron HCl (Zofran Injection) 4 mg IVPUSH Q4H PRN PRN Reason: NAUSEA AND/OR VOMITING Last Admin: 06/19/18 02:25 Dose: 4 mg Ranitidine HCl (Zantac -) 150 mg PO BID [facility] Last Admin: 06/19/18 11:44 Dose: Not Given - Objective Vital Signs: Vital Signs Temperature 97.5 F L 06/19/18 13:54 Pulse Rate 74 06/19/18 13:54 Respiratory Rate 24 H 06/19/18 13:54 Blood Pressure 103/53 L 06/19/18 13:54 O2 Sat by Pulse Oximetry (%) 95 06/18/18 21:00 Constitutional: Yes: Calm Eyes: Yes: Conjunctiva Clear HENT: Yes: Atraumatic Cardiovascular: Yes: S1, S2 Respiratory: Yes: On Nasal O2 Gastrointestinal: Yes: Ascites, Distention Genitourinary: Yes: WNL Musculoskeletal: Yes: Muscle Weakness Edema: Yes Edema: LLE: Trace, RLE: Trace Neurological: Yes: Oriented Psychiatric: Yes: Oriented Labs: CBC, BMP 06/19/18 07:10 06/19/18 07:10 INR, PTT INR 1.26 (0.83-1.09) H 06/15/18 16:50 Problem List - Problems (1) ESRD (end stage renal disease) Code(s): N18.6 - END STAGE RENAL DISEASE Assessment/Plan Current Medications Generic Name Dose Route Start Last Admin Trade Name Freq PRN Reason Stop Dose Admin Acetaminophen 650 mg 06/10/18 00:02 06/15/18 20:33 Tylenol - PO 650 mg Q4H PRN Administration HEADACHE Amiodarone HCl 200 mg 06/10/18 10:00 06/19/18 11:44 Cordarone - PO Not Given DAILY [facility] Buspirone HCl 10 mg 06/10/18 06:00 06/19/18 14:30 Buspar - PO Not Given TID [facility] Calcium Carbonate 500 mg 06/10/18 07:00 06/19/18 11:37 Os-Merlin 500mg - PO Not Given TIDAC [facility] Citalopram Hydrobromide 20 mg 06/10/18 10:00 06/19/18 11:35 Celexa - PO Not Given DAILY [facility] Collagenase 1 applic 06/10/18 10:00 06/18/18 18:51 Santyl - TP 1 applic DAILY [facility] Administration Protocol Cyanocobalamin 100 mcg 06/10/18 10:00 06/19/18 11:37 Vitamin B12 - PO Not Given DAILY [facility] Cyclobenzaprine HCl 2.5 mg 06/13/18 12:19 06/15/18 21:42 Cyclobenzaprine Hcl PO 2.5 mg Q12H PRN Administration MUSCLE SPASMS Folic Acid 1 mg 06/10/18 10:00 06/19/18 11:36 Folic Acid - PO Not Given DAILY [facility] Heparin Sodium (Porcine) 1,000 unit 06/19/18 15:14 Heparin - IVPUSH PRN PRN Heparin Heparin Sodium (Porcine) 5,000 unit 06/19/18 15:14 Heparin - IVPUSH PRN PRN Heparin Piperacillin Sod/Tazobactam 50 mls @ 100 mls/hr 06/15/18 18:00 06/19/18 09:57 Sod 2.25 gm/ Dextrose IVPB 100 mls/hr Q8H-IV [facility] Administration Heparin Sodium (Porcine) 25, 500 mls @ 20 mls/hr 06/19/18 15:15 000 unit/ Sodium Chloride IV 06/20/18 04:00 TITR [facility] Protocol 1,000 UNIT/HR Levothyroxine Sodium 125 mcg 06/10/18 06:00 06/19/18 06:05 Synthroid - PO Not Given DAILY@0600 [facility] Lidocaine 1 patch 06/12/18 10:00 06/19/18 11:35 Lidoderm Patch - TP 1 patch DAILY [facility] Administration Midodrine 5 mg 06/08/18 10:00 06/19/18 14:26 Proamatine - PO 5 mg TID-MID [facility] Administration Miscellaneous 1 each 06/12/18 22:00 06/18/18 21:59 Lidoderm Patch Removal MC 1 each DAILY@2200 [facility] Administration Morphine Sulfate 1 mg 06/16/18 16:29 06/18/18 18:31 Morphine Sulfate IVPUSH 1 mg Q4H PRN Administration PAIN LEVEL 6-10 Multivit/Ca Carb/B Cmplx/FA/Prenat 1 tablet 06/10/18 10:00 06/19/18 11:37 Nephro-Zane - PO Not Given DAILY [facility] Ondansetron HCl 4 mg 06/18/18 11:57 06/19/18 02:25 Zofran Injection IVPUSH 4 mg Q4H PRN Administration NAUSEA AND/OR VOMITING Ranitidine HCl 150 mg 06/12/18 10:30 06/19/18 11:44 Zantac - PO Not Given BID [facility] Impression 1. ESRD 2. CAD 3. CABG 4. COPD 5. CHF 6. SBP 7. DVT 8. hx mesinteric ischemia 9. hypothyroidism 10. gout 11. hld 12. pleural effusion 13. anemia 14. abd pain Plan - pt going for paracentesis tomorrow - will evaluate for HD after - discussed with medical team - will need fistula once medically stable - discussed with his daughter - will follow Dr Jones
[2018-06-19 21:16] LABS: INR 1.28 (0.83-1.09); PROTHROMBIN TIME (PATIENT) 15.2 SEC (9.7-13.0)
[2018-06-19 21:19] LABS: ACTIVATED PTT 34.5 SECONDS (25.2-36.5)
[2018-06-19] MEDS: ACETAMINOPHEN 325 MG TABLET (FP) PO PRN (21:47)
[2018-06-19] MEDS: LIDOCAINE PATCH REMOVAL MC SCH (21:53)
[2018-06-20] MEDS: COLLAGENASE CLOSTRIDIUM HIST. 30 GRAMS TUBE TP SCH ×2 (00:07→17:40)
[2018-06-20] MEDS ORDERED: PIPERACILLIN/TAZOBACTAM 2.25 GM VIAL IVPB ONE ×3 (01:00→16:51)
[2018-06-20] MEDS ORDERED: DEXTROSE 5%-WATER - 50 ML IVPB ONE ×3 (01:00→16:51)
[2018-06-20] MEDS: PIPERACILLIN/TAZOB 2.25 GM 2.25 GM in DEXTROSE 5%-WATER - 50 ML IVPB SCH ×3 (02:32→17:40)
[2018-06-20] MEDS: BANATROL PLUS POWDER PACKET PO SCH ×3 (06:00→22:58)
[2018-06-20] MEDS: CALCIUM (OYSTER SHELL) 500 MG TABLET (FP) PO SCH ×3 (06:00→17:39)
[2018-06-20] MEDS: busPIRone HCL 10 MG TABLET (FP) PO SCH ×3 (06:09→23:15)
[2018-06-20] MEDS: LEVOTHYROXINE NA 125 MCG TABLET (FP) PO SCH (06:09)
[2018-06-20 07:59] LABS: INR 1.23 (0.83-1.09); PROTHROMBIN TIME (PATIENT) 14.6 SEC (9.7-13.0)
[2018-06-20] MEDS ORDERED: EPOETIN ALFA 2,000 UNIT/1 ML VIAL IVPUSH ONE (08:00)
[2018-06-20] MEDS ORDERED: PT OWN MED DRAWER 7, Y5N ONE ×2 (09:55→18:59)
[2018-06-20] MEDS: LIDOCAINE 5% TOPICAL PATCH TP SCH (10:36)
[2018-06-20] MEDS: MIDODRINE HCL 2.5 MG TABLET PO SCH ×3 (10:37→17:38)
[2018-06-20] MEDS: RANITIDINE HCL 150 MG TABLET (FP) PO SCH ×2 (10:37→23:15)
--- NOTE | 2018-06-20 11:36 | PN ---
Progress Note (short form) - Note Progress Note: s: no chest pain, palps, dizzy, dyspnea Current Medications Acetaminophen (Tylenol -) 650 mg PO Q4H PRN PRN Reason: HEADACHE Last Admin: 06/19/18 21:47 Dose: 650 mg Amiodarone HCl (Cordarone -) 200 mg PO DAILY [facility] Last Admin: 06/19/18 11:44 Dose: Not Given Buspirone HCl (Buspar -) 10 mg PO TID [facility] Last Admin: 06/20/18 06:09 Dose: 10 mg Calcium Carbonate (Os-Merlin 500mg -) 500 mg PO TIDAC [facility] Last Admin: 06/20/18 06:00 Dose: Not Given Citalopram Hydrobromide (Celexa -) 20 mg PO DAILY [facility] Last Admin: 06/19/18 11:35 Dose: Not Given Collagenase (Santyl -) 1 applic TP DAILY [facility]; Protocol Last Admin: 06/20/18 00:07 Dose: Not Given Cyanocobalamin (Vitamin B12 -) 100 mcg PO DAILY [facility] Last Admin: 06/19/18 11:37 Dose: Not Given Cyclobenzaprine HCl (Cyclobenzaprine Hcl) 2.5 mg PO Q12H PRN PRN Reason: MUSCLE SPASMS Last Admin: 06/15/18 21:42 Dose: 2.5 mg Epoetin Josemanuel 2,000 unit/ (Epoetin Josemanuel 3,000 unit) 5,000 unit IVPUSH ONCE ONE Stop: 06/20/18 08:01 Folic Acid (Folic Acid -) 1 mg PO DAILY [facility] Last Admin: 06/19/18 11:36 Dose: Not Given Heparin Sodium (Porcine) (Heparin -) 1,000 unit IVPUSH PRN PRN PRN Reason: Heparin Heparin Sodium (Porcine) (Heparin -) 5,000 unit IVPUSH PRN PRN PRN Reason: Heparin Last Admin: 06/19/18 22:10 Dose: 5,000 unit Piperacillin Sod/Tazobactam (Sod 2.25 gm/ Dextrose) 50 mls @ 100 mls/hr IVPB Q8H-IV [facility] Last Admin: 06/20/18 10:38 Dose: 100 mls/hr Sodium Chloride (Normal Saline -) 250 mls @ 3,000 mls/hr IV PRN PRN PRN Reason: Hypotension during Dialysis Stop: 06/21/18 01:23 Levothyroxine Sodium (Synthroid -) 125 mcg PO DAILY@0600 [facility] Last Admin: 06/20/18 06:09 Dose: 125 mcg Lidocaine (Lidoderm Patch -) 1 patch TP DAILY [facility] Last Admin: 06/20/18 10:36 Dose: 1 patch Midodrine (Proamatine -) 5 mg PO TID-MID [facility] Last Admin: 06/20/18 10:37 Dose: 5 mg Miscellaneous (Lidoderm Patch Removal) 1 each MC DAILY@2200 [facility] Last Admin: 06/19/18 21:53 Dose: 1 each Morphine Sulfate (Morphine Sulfate) 1 mg IVPUSH Q4H PRN PRN Reason: PAIN LEVEL 6-10 Last Admin: 06/18/18 18:31 Dose: 1 mg Multivit/Ca Carb/B Cmplx/FA/Prenat (Nephro-Zane -) 1 tablet PO DAILY [facility] Last Admin: 06/19/18 11:37 Dose: Not Given Ondansetron HCl (Zofran Injection) 4 mg IVPUSH Q4H PRN PRN Reason: NAUSEA AND/OR VOMITING Last Admin: 06/19/18 02:25 Dose: 4 mg Ranitidine HCl (Zantac -) 150 mg PO BID [facility] Last Admin: 06/20/18 10:37 Dose: 150 mg - Objective Vital Signs Period Temp Pulse Resp BP Sys/Emery Pulse Ox Last 24 Hr 97.4 F-97.7 F 65-80 20-24 80-116/42-57 96 Constitutional: Yes: Well Nourished, No Distress, Calm Cardiovascular: Yes: Regular Rate and Rhythm, S1, S2. No: JVD, Gallop, Murmur Respiratory: Yes: Regular, CTA Bilaterally. No: Accessory Muscle Use, Rales, Wheezes Extremities: No: Cold Edema: No Neurological: Yes: Alert, Oriented Psychiatric: No: Agitated Assessment/Plan Echo 05/2018 nl LV size, mildly reduced function EF 45-50%, mild global hypokinesis of LV, nl RV, ppm lead in RV and RA, tr TR EKG: sinus, prolonged QTC, old septal infarct ascites: - etiology unclear, per GI - plan is for paracentesis and possible transfer to tertiary center acute on chronic systolic HF: - mildly reduced EF on echo - appeared volume up as above on admit with SOB - sx's resolved with HD--volume management per renal - appears euvolemic at present time, apart from ascites which is being managed by GI - not on DELANO/BB due to low BP - pt advised to see us in f/u to maintain general cardio care in this area, as he is currently not being closely followed (for chf and cad) Prolonged QTc - avoid QT prolonging agents - maintain K >4, Mg >2 s/p ICD ([employer]) - outpatient follow up, Dr. Stover - recent device checks unremarkable per patient - cont amiodarone hypotension - continue midodrine - sbp remains 90s at times (>> 80s), but stable - same plan ESRD on HD - per renal CAD, s/p CABG - cont statin - holding aspirin due to elevated INR and anemia mesenteric ischemia - recent dx, s/p surgery during recent admission for hip fx anemia - manage per primary ascites: -GI, ID, surgery following, on abx. manage per primary Right IJ dvt: -plans per vascular, on hep gtt
--- NOTE | 2018-06-20 12:18 | PN ---
Progress Note, Physician History of Present Illness: Pt seen and examined at bedside. He is going for paracentesis today. He denies fevers or chills. - Current Medication List Current Medications: Active Medications Acetaminophen (Tylenol -) 650 mg PO Q4H PRN PRN Reason: HEADACHE Last Admin: 06/19/18 21:47 Dose: 650 mg Amiodarone HCl (Cordarone -) 200 mg PO DAILY [facility] Last Admin: 06/19/18 11:44 Dose: Not Given Buspirone HCl (Buspar -) 10 mg PO TID [facility] Last Admin: 06/20/18 06:09 Dose: 10 mg Calcium Carbonate (Os-Merlin 500mg -) 500 mg PO TIDAC [facility] Last Admin: 06/20/18 06:00 Dose: Not Given Citalopram Hydrobromide (Celexa -) 20 mg PO DAILY [facility] Last Admin: 06/19/18 11:35 Dose: Not Given Collagenase (Santyl -) 1 applic TP DAILY [facility]; Protocol Last Admin: 06/20/18 00:07 Dose: Not Given Cyanocobalamin (Vitamin B12 -) 100 mcg PO DAILY [facility] Last Admin: 06/19/18 11:37 Dose: Not Given Cyclobenzaprine HCl (Cyclobenzaprine Hcl) 2.5 mg PO Q12H PRN PRN Reason: MUSCLE SPASMS Last Admin: 06/15/18 21:42 Dose: 2.5 mg Epoetin Josemanuel 2,000 unit/ (Epoetin Josemanuel 3,000 unit) 5,000 unit IVPUSH ONCE ONE Stop: 06/20/18 08:01 Folic Acid (Folic Acid -) 1 mg PO DAILY [facility] Last Admin: 06/19/18 11:36 Dose: Not Given Heparin Sodium (Porcine) (Heparin -) 1,000 unit IVPUSH PRN PRN PRN Reason: Heparin Heparin Sodium (Porcine) (Heparin -) 5,000 unit IVPUSH PRN PRN PRN Reason: Heparin Last Admin: 06/19/18 22:10 Dose: 5,000 unit Piperacillin Sod/Tazobactam (Sod 2.25 gm/ Dextrose) 50 mls @ 100 mls/hr IVPB Q8H-IV [facility] Last Admin: 06/20/18 10:38 Dose: 100 mls/hr Sodium Chloride (Normal Saline -) 250 mls @ 3,000 mls/hr IV PRN PRN PRN Reason: Hypotension during Dialysis Stop: 06/21/18 01:23 Levothyroxine Sodium (Synthroid -) 125 mcg PO DAILY@0600 [facility] Last Admin: 06/20/18 06:09 Dose: 125 mcg Lidocaine (Lidoderm Patch -) 1 patch TP DAILY [facility] Last Admin: 06/20/18 10:36 Dose: 1 patch Midodrine (Proamatine -) 5 mg PO TID-MID [facility] Last Admin: 06/20/18 10:37 Dose: 5 mg Miscellaneous (Lidoderm Patch Removal) 1 each MC DAILY@2200 [facility] Last Admin: 06/19/18 21:53 Dose: 1 each Morphine Sulfate (Morphine Sulfate) 1 mg IVPUSH Q4H PRN PRN Reason: PAIN LEVEL 6-10 Last Admin: 06/18/18 18:31 Dose: 1 mg Multivit/Ca Carb/B Cmplx/FA/Prenat (Nephro-Zane -) 1 tablet PO DAILY [facility] Last Admin: 06/19/18 11:37 Dose: Not Given Ondansetron HCl (Zofran Injection) 4 mg IVPUSH Q4H PRN PRN Reason: NAUSEA AND/OR VOMITING Last Admin: 06/19/18 02:25 Dose: 4 mg Ranitidine HCl (Zantac -) 150 mg PO BID [facility] Last Admin: 06/20/18 10:37 Dose: 150 mg - Objective Vital Signs: Vital Signs Temperature 97.4 F L 06/20/18 06:00 Pulse Rate 68 06/20/18 10:00 Respiratory Rate 18 06/20/18 10:00 Blood Pressure 110/60 06/20/18 10:00 O2 Sat by Pulse Oximetry (%) 100 06/20/18 09:00 Constitutional: Yes: Calm Eyes: Yes: Conjunctiva Clear HENT: Yes: Atraumatic Cardiovascular: Yes: S1, S2 Respiratory: Yes: CTA Bilaterally, On Nasal O2 Gastrointestinal: Yes: Ascites Genitourinary: Yes: WNL Edema: No Neurological: Yes: Oriented Psychiatric: Yes: Oriented Labs: CBC, BMP 06/19/18 07:10 06/19/18 07:10 INR, PTT INR 1.23 (0.83-1.09) H 06/20/18 07:00 Problem List - Problems (1) ESRD (end stage renal disease) Code(s): N18.6 - END STAGE RENAL DISEASE Assessment/Plan Current Medications Generic Name Dose Route Start Last Admin Trade Name Frefletcher PRN Reason Stop Dose Admin Acetaminophen 650 mg 06/10/18 00:02 06/19/18 21:47 Tylenol - PO 650 mg Q4H PRN Administration HEADACHE Amiodarone HCl 200 mg 06/10/18 10:00 06/19/18 11:44 Cordarone - PO Not Given DAILY [facility] Buspirone HCl 10 mg 06/10/18 06:00 06/20/18 06:09 Buspar - PO 10 mg TID [facility] Administration Calcium Carbonate 500 mg 06/10/18 07:00 06/20/18 06:00 Os-Merlin 500mg - PO Not Given TIDAC [facility] Citalopram Hydrobromide 20 mg 06/10/18 10:00 06/19/18 11:35 Celexa - PO Not Given DAILY [facility] Collagenase 1 applic 06/10/18 10:00 06/20/18 00:07 Santyl - TP Not Given DAILY [facility] Protocol Cyanocobalamin 100 mcg 06/10/18 10:00 06/19/18 11:37 Vitamin B12 - PO Not Given DAILY [facility] Cyclobenzaprine HCl 2.5 mg 06/13/18 12:19 06/15/18 21:42 Cyclobenzaprine Hcl PO 2.5 mg Q12H PRN Administration MUSCLE SPASMS Epoetin Josemanuel 2,000 unit/ 5,000 unit 06/20/18 08:00 Epoetin Josemanuel 3,000 unit IVPUSH 06/20/18 08:01 ONCE ONE Folic Acid 1 mg 06/10/18 10:00 06/19/18 11:36 Folic Acid - PO Not Given DAILY [facility] Heparin Sodium (Porcine) 1,000 unit 06/19/18 15:14 Heparin - IVPUSH PRN PRN Heparin Heparin Sodium (Porcine) 5,000 unit 06/19/18 15:14 06/19/18 22:10 Heparin - IVPUSH 5,000 unit PRN PRN Administration Heparin Piperacillin Sod/Tazobactam 50 mls @ 100 mls/hr 06/15/18 18:00 06/20/18 10:38 Sod 2.25 gm/ Dextrose IVPB 100 mls/hr Q8H-IV [facility] Administration Sodium Chloride 250 mls @ 3,000 mls/hr 06/20/18 01:23 Normal Saline - IV 06/21/18 01:23 PRN PRN Hypotension during Dialysis Levothyroxine Sodium 125 mcg 06/10/18 06:00 06/20/18 06:09 Synthroid - PO 125 mcg DAILY@0600 [facility] Administration Lidocaine 1 patch 06/12/18 10:00 06/20/18 10:36 Lidoderm Patch - TP 1 patch DAILY [facility] Administration Midodrine 5 mg 06/08/18 10:00 06/20/18 10:37 Proamatine - PO 5 mg TID-MID [facility] Administration Miscellaneous 1 each 06/12/18 22:00 06/19/18 21:53 Lidoderm Patch Removal MC 1 each DAILY@2200 [facility] Administration Morphine Sulfate 1 mg 06/16/18 16:29 06/18/18 18:31 Morphine Sulfate IVPUSH 1 mg Q4H PRN Administration PAIN LEVEL 6-10 Multivit/Ca Carb/B Cmplx/FA/Prenat 1 tablet 06/10/18 10:00 06/19/18 11:37 Nephro-Zane - PO Not Given DAILY [facility] Ondansetron HCl 4 mg 06/18/18 11:57 06/19/18 02:25 Zofran Injection IVPUSH 4 mg Q4H PRN Administration NAUSEA AND/OR VOMITING Ranitidine HCl 150 mg 06/12/18 10:30 06/20/18 10:37 Zantac - PO 150 mg BID [facility] Administration Impression 1. ESRD 2. CAD 3. CABG 4. COPD 5. CHF 6. SBP 7. DVT 8. hx mesinteric ischemia 9. hypothyroidism 10. gout 11. hld 12. pleural effusion 13. anemia 14. abd pain 15. ascites Plan - paracentesis today - HD today - UF depending on paracentesis volume - discussed with medical team - will need fistula once medically stable - will follow Dr Jones
--- NOTE | 2018-06-20 13:21 | PN ---
Progress Note (short form) - Note Progress Note: came to see patient. currently undergoing paracentesis Problem List - Problems (1) Ascites Code(s): R18.8 - OTHER ASCITES Qualifiers: Ascites type: other type Qualified Code(s): R18.8 - Other ascites
--- NOTE | 2018-06-20 13:42 | PN ---
GI Progress Note Subjective: S/P Paracentesis: Called US: 6200cc removed Mr. Schaeffer states feeling much improved in terms of abdominal pain and breathing - Objective Vital Signs: Vital Signs Temperature 97.4 F L 06/20/18 06:00 Pulse Rate 68 06/20/18 10:00 Respiratory Rate 18 06/20/18 10:00 Blood Pressure 110/60 06/20/18 10:00 O2 Sat by Pulse Oximetry (%) 100 06/20/18 09:00 Constitutional: Calm Eyes: No: Sclera Icterus Respiratory: Yes: Diminished (at bases b/l) Gastrointestinal Inspection: Yes: Distention (improved), Scars (midline vert. abdominoplevic surgical scar) ...Auscultate: Yes: Normoactive Bowel Sounds ...Palpate: No: Tenderness ...Percussion: No: Tympanitic Neurological: Yes: Alert Labs: CBC, BMP 06/19/18 07:10 06/19/18 07:10 INR, PTT INR 1.23 (0.83-1.09) H 06/20/18 07:00 Problem List - Problems (1) Ascites Assessment/Plan: S/P LV paracentesis. I called US: They states that Cell count and culture was sent ? infected nephrogenic ascites Unclear duration of Abx at this point Unclear transfer status as of yet ID following Follow-up repeat fluid cell count and culture Renal f/u Code(s): R18.8 - OTHER ASCITES Qualifiers: Ascites type: other type Qualified Code(s): R18.8 - Other ascites
--- NOTE | 2018-06-20 13:46 | PN ---
Progress Note, Physician History of Present Illness: stable had tap done no complaints - Current Medication List Current Medications: Active Medications Acetaminophen (Tylenol -) 650 mg PO Q4H PRN PRN Reason: HEADACHE Last Admin: 06/19/18 21:47 Dose: 650 mg Amiodarone HCl (Cordarone -) 200 mg PO DAILY [facility] Last Admin: 06/19/18 11:44 Dose: Not Given Buspirone HCl (Buspar -) 10 mg PO TID [facility] Last Admin: 06/20/18 06:09 Dose: 10 mg Calcium Carbonate (Os-Merlin 500mg -) 500 mg PO TIDAC [facility] Last Admin: 06/20/18 06:00 Dose: Not Given Citalopram Hydrobromide (Celexa -) 20 mg PO DAILY [facility] Last Admin: 06/19/18 11:35 Dose: Not Given Collagenase (Santyl -) 1 applic TP DAILY [facility]; Protocol Last Admin: 06/20/18 00:07 Dose: Not Given Cyanocobalamin (Vitamin B12 -) 100 mcg PO DAILY [facility] Last Admin: 06/19/18 11:37 Dose: Not Given Cyclobenzaprine HCl (Cyclobenzaprine Hcl) 2.5 mg PO Q12H PRN PRN Reason: MUSCLE SPASMS Last Admin: 06/15/18 21:42 Dose: 2.5 mg Epoetin Josemanuel 2,000 unit/ (Epoetin Josemanuel 3,000 unit) 5,000 unit IVPUSH ONCE ONE Stop: 06/20/18 08:01 Folic Acid (Folic Acid -) 1 mg PO DAILY [facility] Last Admin: 06/19/18 11:36 Dose: Not Given Heparin Sodium (Porcine) (Heparin -) 1,000 unit IVPUSH PRN PRN PRN Reason: Heparin Heparin Sodium (Porcine) (Heparin -) 5,000 unit IVPUSH PRN PRN PRN Reason: Heparin Last Admin: 06/19/18 22:10 Dose: 5,000 unit Piperacillin Sod/Tazobactam (Sod 2.25 gm/ Dextrose) 50 mls @ 100 mls/hr IVPB Q8H-IV [facility] Last Admin: 06/20/18 10:38 Dose: 100 mls/hr Sodium Chloride (Normal Saline -) 250 mls @ 3,000 mls/hr IV PRN PRN PRN Reason: Hypotension during Dialysis Stop: 06/21/18 01:23 Levothyroxine Sodium (Synthroid -) 125 mcg PO DAILY@0600 [facility] Last Admin: 06/20/18 06:09 Dose: 125 mcg Lidocaine (Lidoderm Patch -) 1 patch TP DAILY [facility] Last Admin: 06/20/18 10:36 Dose: 1 patch Midodrine (Proamatine -) 5 mg PO TID-MID [facility] Last Admin: 06/20/18 10:37 Dose: 5 mg Miscellaneous (Lidoderm Patch Removal) 1 each MC DAILY@2200 [facility] Last Admin: 06/19/18 21:53 Dose: 1 each Morphine Sulfate (Morphine Sulfate) 1 mg IVPUSH Q4H PRN PRN Reason: PAIN LEVEL 6-10 Last Admin: 06/18/18 18:31 Dose: 1 mg Multivit/Ca Carb/B Cmplx/FA/Prenat (Nephro-Zane -) 1 tablet PO DAILY [facility] Last Admin: 06/19/18 11:37 Dose: Not Given Ondansetron HCl (Zofran Injection) 4 mg IVPUSH Q4H PRN PRN Reason: NAUSEA AND/OR VOMITING Last Admin: 06/19/18 02:25 Dose: 4 mg Ranitidine HCl (Zantac -) 150 mg PO BID [facility] Last Admin: 06/20/18 10:37 Dose: 150 mg - Objective Vital Signs: Vital Signs Temperature 97.4 F L 06/20/18 06:00 Pulse Rate 68 06/20/18 10:00 Respiratory Rate 18 06/20/18 10:00 Blood Pressure 110/60 06/20/18 10:00 O2 Sat by Pulse Oximetry (%) 100 06/20/18 09:00 Constitutional: Yes: No Distress, Calm Cardiovascular: Yes: S1, S2 Gastrointestinal: Yes: Normal Bowel Sounds, Soft, Ascites, Distention Musculoskeletal: Yes: WNL Extremities: Yes: WNL Neurological: Yes: Alert, Oriented Psychiatric: Yes: Alert, Oriented Labs: CBC, BMP 06/19/18 07:10 06/19/18 07:10 INR, PTT INR 1.23 (0.83-1.09) H 06/20/18 07:00 Assessment/Plan ASSESSMENT AND PLAN: (1) Hypotension Code(s): I95.9 - HYPOTENSION, UNSPECIFIED (2) ESRD (end stage renal disease) Code(s): N18.6 - END STAGE RENAL DISEASE (3) Ascites Code(s): R18.8 - OTHER ASCITES (4) Supratherapeutic INR Code(s): R79.1 - ABNORMAL COAGULATION PROFILE (5) CAD (coronary artery disease) Code(s): I25.10 - ATHSCL HEART DISEASE OF [place] CORONARY ARTERY W/O ANG PCTRS (6) CHF (congestive heart failure) Code(s): I50.9 - HEART FAILURE, UNSPECIFIED Qualifiers: Heart failure chronicity: acute on chronic (7) Hypothyroid Code(s): E03.9 - HYPOTHYROIDISM, UNSPECIFIED (8) SBP (secondary bacterial peritonitis) Code(s): K65.2 - SPONTANEOUS BACTERIAL PERITONITIS (9) Anxiety -consult psychiatry 10 b/l heel ulcer plan continue abx tapped will see what the results show will decide after that about abx
[2018-06-20 14:26] LABS: ALBUMIN 2.6 g/dl (3.4-5.0); BILIRUBIN,DIRECT 0.4 mg/dL (0.0-0.2); BILIRUBIN,TOTAL 0.7 mg/dL (0.2-1); TOT PROT 5.1 g/dl (6.4-8.2)
--- NOTE | 2018-06-20 14:32 | PN ---
Physical Exam: SUBJECTIVE: Patient seen and examined by me at bedside. No acute events S/P Paracentesis today with 6200cc removed Reports improved abdominal pain. Otherwise, denies any fever, chills, nausea, vomiting, chest pain, palpitations , headaches OBJECTIVE: Vital Signs Period Temp Pulse Resp BP Sys/Emery Pulse Ox Last 24 Hr 97.4 F-97.7 F 65-78 18-22 89-116/49-60 96-100 GENERAL: The patient is awake, alert, frail looking and fully oriented, in no acute distress. EYES: Sclera anicteric, conjunctiva clear. No ptosis. ENT: Moist mucous membranes. LUNGS: CTA no wheezing or no accessory muscle use. HEART: Regular rate and rhythm, S1, S2 with (+) JOSIE ABDOMEN: Soft, nontender, nondistended, normoactive bowel sounds (+) vertical incisional scar C/D/I EXTREMITIES: No edema. (+) Stage I ulcer of left heel and second toe SKIN: Warm, dry, normal turgor, no rashes or lesions noted Laboratory Results - last 24 hr 06/19/18 06/20/18 06/20/18 20:30 07:00 07:00 PT with INR 15.20 H 14.60 H INR 1.28 H 1.23 H PTT (Actin FS) 34.5 38.3 H Active Medications Generic Name Dose Route Start Last Admin Trade Name Freq PRN Reason Stop Dose Admin Acetaminophen 650 mg 06/10/18 00:02 06/19/18 21:47 Tylenol - PO 650 mg Q4H PRN Administration HEADACHE Amiodarone HCl 200 mg 06/10/18 10:00 06/19/18 11:44 Cordarone - PO Not Given DAILY [facility] Buspirone HCl 10 mg 06/10/18 06:00 06/20/18 06:09 Buspar - PO 10 mg TID [facility] Administration Calcium Carbonate 500 mg 06/10/18 07:00 06/20/18 06:00 Os-Merlin 500mg - PO Not Given TIDAC [facility] Citalopram Hydrobromide 20 mg 06/10/18 10:00 06/19/18 11:35 Celexa - PO Not Given DAILY [facility] Collagenase 1 applic 06/10/18 10:00 06/20/18 00:07 Santyl - TP Not Given DAILY [facility] Protocol Cyanocobalamin 100 mcg 06/10/18 10:00 06/19/18 11:37 Vitamin B12 - PO Not Given DAILY [facility] Cyclobenzaprine HCl 2.5 mg 06/13/18 12:19 06/15/18 21:42 Cyclobenzaprine Hcl PO 2.5 mg Q12H PRN Administration MUSCLE SPASMS Epoetin Josemanuel 2,000 unit/ 5,000 unit 06/20/18 08:00 Epoetin Josemanuel 3,000 unit IVPUSH 06/20/18 08:01 ONCE ONE Folic Acid 1 mg 06/10/18 10:00 06/19/18 11:36 Folic Acid - PO Not Given DAILY [facility] Heparin Sodium (Porcine) 1,000 unit 06/19/18 15:14 Heparin - IVPUSH PRN PRN Heparin Heparin Sodium (Porcine) 5,000 unit 06/19/18 15:14 06/19/18 22:10 Heparin - IVPUSH 5,000 unit PRN PRN Administration Heparin Piperacillin Sod/Tazobactam 50 mls @ 100 mls/hr 06/15/18 18:00 06/20/18 10:38 Sod 2.25 gm/ Dextrose IVPB 100 mls/hr Q8H-IV [facility] Administration Sodium Chloride 250 mls @ 3,000 mls/hr 06/20/18 01:23 Normal Saline - IV 06/21/18 01:23 PRN PRN Hypotension during Dialysis Levothyroxine Sodium 125 mcg 06/10/18 06:00 06/20/18 06:09 Synthroid - PO 125 mcg DAILY@0600 [facility] Administration Lidocaine 1 patch 06/12/18 10:00 06/20/18 10:36 Lidoderm Patch - TP 1 patch DAILY [facility] Administration Midodrine 5 mg 06/08/18 10:00 06/20/18 10:37 Proamatine - PO 5 mg TID-MID [facility] Administration Miscellaneous 1 each 06/12/18 22:00 06/19/18 21:53 Lidoderm Patch Removal MC 1 each DAILY@2200 [facility] Administration Morphine Sulfate 1 mg 06/16/18 16:29 06/18/18 18:31 Morphine Sulfate IVPUSH 1 mg Q4H PRN Administration PAIN LEVEL 6-10 Multivit/Ca Carb/B Cmplx/FA/Prenat 1 tablet 06/10/18 10:00 06/19/18 11:37 Nephro-Zane - PO Not Given DAILY [facility] Ondansetron HCl 4 mg 06/18/18 11:57 06/19/18 02:25 Zofran Injection IVPUSH 4 mg Q4H PRN Administration NAUSEA AND/OR VOMITING Ranitidine HCl 150 mg 06/12/18 10:30 06/20/18 10:37 Zantac - PO 150 mg BID [facility] Administration ASSESSMENT/PLAN: Patient is a 67 year old male with a PMHx of CAD s/p CABG, Defibrillator ( [employer]), COPD (on 2-3L Home O2), ESRD (On HD // via Right Tunnel Cath), CH[facility] with Chest pain. #Ascites -Repeat Paracentesis today with 6200 cc of fluids removed. Results pending -Continue IV Zosyn 2.25gm Q8H day#12 -Will order Albumin #Mesentric ischemia s/p Right Hemicolectomy -Abdominal pain improved after paracentesis (06/20/18). Awaiting results -Patient refused transfer to tertiary center but now is requesting it. Will try [place] -Continue IV abx with Zosyn 2.25gm Q8H day#12 #Supratherapeutic INR- Resolved -Continue Heparin Drip for thrombus. Resume this evening -Continue to monitor #Back Pain -Lidocaine patch for pain -Flexeril 2.5mg BID PRN #Diarrhea -Possibly infectious vs mechanical. C.Diff negative. Possibly from recent colectomy -Continue to monitor #Filling defect SVC/Left brachiocephalic -Shown on CTA chest report from 05/23/2018 -UE duplex shows right IJ thrombus -Continue Heparin drip and then transition to Eliquis outpatient #Hypotension -Continue Midodrine -Patient with low BP but has improved -Continue to monitor #Chest pain -Likely due to anxiety. -Resolved #ESRD on HD -HD today (,,Tue) -Epogen for anemia -Will need follow up with Dr Woodard for fistula #CAD -Holding Coreg due to hypotension -Continue Amiodarone as patient has history of shocks from ICD #Acute on Chronic systolic CHF -Improved -No SOB today -Continue HD to remove fluid -On no ARB/DELANO or BB due to low BP #Hypothyroidism -Continue LT4 125 mcg, as per endo #Anxiety -Continue Buspar and Celexa #F/E/N -On no fluids -Electrolytes wnl. -Sodium controlled diet #Prophylaxis -Heparin drip for DVT. -No GI required #Disposition -Full code -S/P Paracentesis today. Awaiting results Mindy Floyd [id number] Visit type - Emergency Visit Emergency Visit: Yes ED Registration Date: 05/31/18 Care time: The patient presented to the Emergency Department on the above date and was hospitalized for further evaluation of their emergent condition. - New Patient This patient is new to me today: No - Critical Care Critical Care patient: No
--- NOTE | 2018-06-20 14:39 | PN ---
Teaching Attending Note Name of Resident: Mindy Floyd ATTENDING PHYSICIAN STATEMENT I saw and evaluated the patient. I reviewed the resident's note and discussed the case with the resident. I agree with the resident's findings and plan as documented. SUBJECTIVE: Mr Schaeffer complains of abdominal fullness. No cp or sob OBJECTIVE: Last Vital Signs Temp Pulse Resp BP Pulse Ox 36.2 C L 73 18 105/57 L 100 06/20/18 14:29 06/20/18 14:29 06/20/18 14:29 06/20/18 14:29 06/20/18 09:00 Gen: nad Pulm: ctab w/o w/r/r CV: rrr w/o m/r/g Abd: +bs, distended, TTP Ext: no c/c/e CBC, BMP 06/19/18 07:10 06/19/18 07:10 ASSESSMENT AND PLAN: (1) Hypotension Assessment/Plan: -improved with midodrine Code(s): I95.9 - HYPOTENSION, UNSPECIFIED (2) ESRD (end stage renal disease) Assessment/Plan: -case d/w Dr Jones -HD today but will not remove fluid Code(s): N18.6 - END STAGE RENAL DISEASE (3) Ascites Assessment/Plan: -s/p paracentesis -removed 6L, albumin ordered -follow up fluid studies Code(s): R18.8 - OTHER ASCITES (4) Supratherapeutic INR Assessment/Plan: -resolved -now on heparin gtt for VTE Code(s): R79.1 - ABNORMAL COAGULATION PROFILE (5) CAD (coronary artery disease) Assessment/Plan: -quiescent Code(s): I25.10 - ATHSCL HEART DISEASE OF [place] CORONARY ARTERY W/O ANG PCTRS (6) CHF (congestive heart failure) Assessment/Plan: -treating with HD Code(s): I50.9 - HEART FAILURE, UNSPECIFIED Qualifiers: Heart failure chronicity: acute on chronic (7) Hypothyroid Assessment/Plan: -continue synthroid Code(s): E03.9 - HYPOTHYROIDISM, UNSPECIFIED (8) SBP (secondary bacterial peritonitis) Assessment/Plan: -continue zosyn per ID -follow up fluid studies Code(s): K65.2 - SPONTANEOUS BACTERIAL PERITONITIS (9) Anxiety -continue buspar (10) Anemia -stable Problem List - Problems (1) Hypotension Code(s): I95.9 - HYPOTENSION, UNSPECIFIED (2) ESRD (end stage renal disease) Code(s): N18.6 - END STAGE RENAL DISEASE (3) Ascites Code(s): R18.8 - OTHER ASCITES Qualifiers: Ascites type: other type Qualified Code(s): R18.8 - Other ascites (4) Supratherapeutic INR Code(s): R79.1 - ABNORMAL COAGULATION PROFILE (5) CAD (coronary artery disease) Code(s): I25.10 - ATHSCL HEART DISEASE OF [place] CORONARY ARTERY W/O ANG PCTRS Qualifiers: Coronary Disease-Associated Artery/Lesion type: [place] artery [place] vs. transplanted heart: [place] heart Associated angina: without angina Qualified Code(s): I25.10 - Atherosclerotic heart disease of [place] coronary artery without angina pectoris (6) CHF (congestive heart failure) Code(s): I50.9 - HEART FAILURE, UNSPECIFIED Qualifiers: Heart failure type: unspecified Heart failure chronicity: acute on chronic Qualified Code(s): I50.9 - Heart failure, unspecified (7) Hypothyroid Code(s): E03.9 - HYPOTHYROIDISM, UNSPECIFIED Qualifiers: Hypothyroidism type: unspecified Qualified Code(s): E03.9 - Hypothyroidism , unspecified (8) SBP (spontaneous bacterial peritonitis) Code(s): K65.2 - SPONTANEOUS BACTERIAL PERITONITIS
[2018-06-20] MEDS ORDERED: ALBUMIN HUMAN 25% 100 ML VIAL IVPB ONE ×2 (14:55→17:30)
[2018-06-20] MEDS: VITAMIN B COMP W-C 1 EA TABLET PO SCH (15:05)
[2018-06-20] MEDS: FOLIC ACID 1 MG TABLET (FP) PO SCH (15:06)
[2018-06-20] MEDS: AMIODARONE HCL 200 MG TABLET (FP) PO SCH (15:06)
[2018-06-20] MEDS: CYANOCOBALAMIN (VITAMIN B-12) 100 MCG TABLET PO SCH (15:06)
[2018-06-20] MEDS: CITALOPRAM HYDROBROMIDE 20 MG TABLET (FP) PO SCH (15:06)
[2018-06-20 16:58] LABS: BODY FLUID MESOTHELIAL 3 %; BODY FLUID MONOCYTE 0 %
[2018-06-20] MEDS: MORPHINE SULFATE 2 MG/ML VIAL IVPUSH PRN (18:26)
[2018-06-20] MEDS ORDERED: SODIUM CHLORIDE 250 ML IV PRN (19:03)
[2018-06-20] MEDS ORDERED: EPOETIN ALFA 2,000 UNIT, EPOETIN ALFA 3,000 UNIT IVPUSH ONE (19:15)
[2018-06-20 19:30] LABS: HEMATOCRIT 29.7 % (35.4-49); HEMOGLOBIN 9.3 GM/dL (11.7-16.9); MCH 32.1 pg (25.7-33.7); MCHC 31.4 g/dl (32.0-35.9); MEAN CELL VOLUME 102.4 fl (80-96); MEAN PLT VOLUME 7.9 fl (7.5-11.1); PLATELET COUNT 99 K/MM3 (134-434); RDW 29.5 % (11.9-15.9); WHITE BLOOD COUNT 8.1 K/mm3 (4.0-10.0)
[2018-06-20 20:35] LABS: ALBUMIN 2.7 g/dl (3.4-5.0); ANION GAP 9 MMOL/L (8-16); BILIRUBIN,TOTAL 0.6 mg/dL (0.2-1); BLOOD UREA NITROGEN 21 mg/dL (7-18); CALCIUM 8.7 mg/dL (8.5-10.1); CHLORIDE 102 mmol/L (98-107); CO2 30 mmol/L (21-32); CREATININE 3.5 mg/dL (0.55-1.3); GLUCOSE,RANDOM 121 mg/dL (74-106); POTASSIUM 3.5 mmol/L (3.5-5.1); SGOT/AST 16 U/L (15-37); SGPT/ALT 18 U/L (13-61); SODIUM 140 mmol/L (136-145); TOT PROT 4.9 g/dl (6.4-8.2)
[2018-06-20 20:36] LABS: ALK PHOS 179 U/L (45-117)
[2018-06-20] MEDS: HEPARIN - 25,000 UNIT in SODIUM CHLORIDE 495 ML IV SCH (23:14)
[2018-06-20] MEDS: LIDOCAINE PATCH REMOVAL MC SCH (23:15)
[2018-06-21] MEDS ORDERED: DEXTROSE 5%-WATER - 50 ML IVPB ONE ×3 (01:33→17:24)
[2018-06-21] MEDS ORDERED: PIPERACILLIN/TAZOBACTAM 2.25 GM VIAL IVPB ONE ×3 (01:33→17:24)
[2018-06-21] MEDS: MORPHINE SULFATE 2 MG/ML VIAL IVPUSH PRN (01:42)
[2018-06-21] MEDS: PIPERACILLIN/TAZOB 2.25 GM 2.25 GM in DEXTROSE 5%-WATER - 50 ML IVPB SCH ×4 (01:42→18:21)
[2018-06-21] MEDS: BANATROL PLUS POWDER PACKET PO SCH ×3 (05:30→21:51)
[2018-06-21] MEDS: busPIRone HCL 10 MG TABLET (FP) PO SCH ×3 (06:10→21:52)
[2018-06-21] MEDS: LEVOTHYROXINE NA 125 MCG TABLET (FP) PO SCH (06:10)
[2018-06-21] MEDS: CALCIUM (OYSTER SHELL) 500 MG TABLET (FP) PO SCH ×3 (06:10→17:37)
[2018-06-21 08:18] LABS: HEMATOCRIT 31.3 % (35.4-49); MCH 32.5 pg (25.7-33.7); MCHC 31.9 g/dl (32.0-35.9); MEAN CELL VOLUME 101.7 fl (80-96); PLATELET COUNT 108 K/MM3 (134-434); RBC 3.07 M/mm3 (4.00-5.60); RDW 29.2 % (11.9-15.9); WHITE BLOOD COUNT 7.2 K/mm3 (4.0-10.0)
[2018-06-21 08:19] LABS: ALBUMIN 2.8 g/dl (3.4-5.0); ALK PHOS 180 U/L (45-117); ANION GAP 6 MMOL/L (8-16); BILIRUBIN,TOTAL 0.8 mg/dL (0.2-1); BLOOD UREA NITROGEN 13 mg/dL (7-18); CALCIUM 8.3 mg/dL (8.5-10.1); CHLORIDE 100 mmol/L (98-107); CO2 33 mmol/L (21-32); CREATININE 2.9 mg/dL (0.55-1.3); GLUCOSE,RANDOM 90 mg/dL (74-106); POTASSIUM 3.7 mmol/L (3.5-5.1); SGOT/AST 31 U/L (15-37); SGPT/ALT 21 U/L (13-61); SODIUM 139 mmol/L (136-145); TOT PROT 5.1 g/dl (6.4-8.2)
[2018-06-21] MEDS ORDERED: PT OWN MED DRAWER 7, Y5N ONE ×8 (09:56→21:48)
[2018-06-21] MEDS: AMIODARONE HCL 200 MG TABLET (FP) PO SCH (09:59)
[2018-06-21] MEDS: RANITIDINE HCL 150 MG TABLET (FP) PO SCH ×2 (09:59→21:51)
[2018-06-21] MEDS: LIDOCAINE 5% TOPICAL PATCH TP SCH (10:00)
[2018-06-21] MEDS: CITALOPRAM HYDROBROMIDE 20 MG TABLET (FP) PO SCH (10:00)
[2018-06-21] MEDS: VITAMIN B COMP W-C 1 EA TABLET PO SCH (10:00)
[2018-06-21] MEDS: FOLIC ACID 1 MG TABLET (FP) PO SCH (10:00)
[2018-06-21] MEDS: CYANOCOBALAMIN (VITAMIN B-12) 100 MCG TABLET PO SCH (10:01)
[2018-06-21] MEDS: MIDODRINE HCL 2.5 MG TABLET PO SCH ×3 (10:01→17:50)
[2018-06-21] MEDS: HEPARIN - 25,000 UNIT in SODIUM CHLORIDE 495 ML IV SCH ×2 (10:26→22:02)
--- NOTE | 2018-06-21 11:16 | PN ---
Physical Exam: SUBJECTIVE: Patient seen and examined by me at bedside. No acute events S/P Paracentesis yesterday with 6200cc removed and >160k WBC predominately neutrophilic Reports improved abdominal pain with no shortness of breath Otherwise, denies any fever, chills, nausea, vomiting, chest pain, palpitations , headaches OBJECTIVE: Vital Signs Period Temp Pulse Resp BP Sys/Emery Pulse Ox Last 24 Hr 97.2 F-98.0 F 55-73 18-20 83-130/44-69 96 GENERAL: The patient is awake, alert, frail looking and fully oriented, in no acute distress. EYES: Sclera anicteric, conjunctiva clear. No ptosis. ENT: Moist mucous membranes. LUNGS: CTA no wheezing or no accessory muscle use. HEART: Regular rate and rhythm, S1, S2 with (+) JOSIE ABDOMEN: Soft, nontender, nondistended, normoactive bowel sounds (+) vertical incisional scar C/D/I EXTREMITIES: No edema. (+) Stage I ulcer of left heel and second toe SKIN: Warm, dry, normal turgor, no rashes or lesions noted Laboratory Results 06/21/18 06:30 06/21/18 06:30 06/21/18 06:30 AST 31 ALT 21 Alkaline Phosphatase 180 H Total Protein 5.1 L Albumin 2.8 L 06/20/18 12:00 Fluid Source Peritoneal Fluid WBC 168,882 Fluid RBC 0 Fluid Neutrophils 93 Fluid Lymphocytes 4 Active Medications Generic Name Dose Route Start Last Admin Trade Name Freq PRN Reason Stop Dose Admin Acetaminophen 650 mg 06/10/18 00:02 06/19/18 21:47 Tylenol - PO 650 mg Q4H PRN Administration HEADACHE Amiodarone HCl 200 mg 06/10/18 10:00 06/21/18 09:59 Cordarone - PO 200 mg DAILY JULIAN Administration Buspirone HCl 10 mg 06/10/18 06:00 06/21/18 06:10 Buspar - PO 10 mg TID JULIAN Administration Calcium Carbonate 500 mg 06/10/18 07:00 06/21/18 06:10 Os-Merlin 500mg - PO 500 mg TIDAC JULIAN Administration Citalopram Hydrobromide 20 mg 06/10/18 10:00 06/21/18 10:00 Celexa - PO 20 mg DAILY JULIAN Administration Collagenase 1 applic 06/10/18 10:00 06/20/18 17:40 Santyl - TP 1 applic DAILY JULIAN Administration Protocol Cyanocobalamin 100 mcg 06/10/18 10:00 06/21/18 10:01 Vitamin B12 - PO 100 mcg DAILY JULIAN Administration Cyclobenzaprine HCl 2.5 mg 06/13/18 12:19 06/15/18 21:42 Cyclobenzaprine Hcl PO 2.5 mg Q12H PRN Administration MUSCLE SPASMS Folic Acid 1 mg 06/10/18 10:00 06/21/18 10:00 Folic Acid - PO 1 mg DAILY JULIAN Administration Heparin Sodium (Porcine) 1,000 unit 06/19/18 15:14 06/21/18 10:23 Heparin - IVPUSH 1,000 unit PRN PRN Administration Heparin Heparin Sodium (Porcine) 5,000 unit 06/19/18 15:14 06/19/18 22:10 Heparin - IVPUSH 5,000 unit PRN PRN Administration Heparin Piperacillin Sod/Tazobactam 50 mls @ 100 mls/hr 06/15/18 18:00 06/21/18 10:00 Sod 2.25 gm/ Dextrose IVPB 100 mls/hr Q8H-IV JULIAN Administration Sodium Chloride 250 mls @ 3,000 mls/hr 06/20/18 19:03 Normal Saline - IV 06/21/18 19:02 PRN PRN Hypotension during Dialysis Heparin Sodium (Porcine) 25, 500 mls @ 20 mls/hr 06/20/18 19:30 06/21/18 10: 26 000 unit/ Sodium Chloride IV 1,100 unit/hr TITR JULIAN 22 mls/hr Administration Protocol 1,000 UNIT/HR Levothyroxine Sodium 125 mcg 06/10/18 06:00 06/21/18 06:10 Synthroid - PO 125 mcg DAILY@0600 JULIAN Administration Lidocaine 1 patch 06/12/18 10:00 06/21/18 10:00 Lidoderm Patch - TP 1 patch DAILY JULIAN Administration Midodrine 5 mg 06/08/18 10:00 06/21/18 10:01 Proamatine - PO 5 mg TID-MID JULIAN Administration Miscellaneous 1 each 06/12/18 22:00 06/20/18 23:15 Lidoderm Patch Removal MC 1 each DAILY@2200 JULIAN Administration Morphine Sulfate 1 mg 06/16/18 16:29 06/21/18 01:42 Morphine Sulfate IVPUSH 1 mg Q4H PRN Administration PAIN LEVEL 6-10 Multivit/Ca Carb/B Cmplx/FA/Prenat 1 tablet 06/10/18 10:00 06/21/18 10:00 Nephro-Zane - PO 1 tablet DAILY JULIAN Administration Ondansetron HCl 4 mg 06/18/18 11:57 06/19/18 02:25 Zofran Injection IVPUSH 4 mg Q4H PRN Administration NAUSEA AND/OR VOMITING Ranitidine HCl 150 mg 06/12/18 10:30 06/21/18 09:59 Zantac - PO 150 mg BID JULIAN Administration ASSESSMENT/PLAN: Patient is a 67 year old male with a PMHx of CAD s/p CABG, Defibrillator ( [employer]), COPD (on 2-3L Home O2), ESRD (On HD // via Right Tunnel Cath), CHF presents from [facility]) with Chest pain. #Ascites -Repeat Paracentesis today with 6200 cc of fluids removed. Peritoneal WBC >168k predominately neutrophilic. -Continue IV Zosyn 2.25gm Q8H day#13 -Will need to transfer patient to tertiary center due to increasing WBC in the peritoneal fluid #Mesentric ischemia s/p Right Hemicolectomy -Abdominal pain improved after paracentesis (06/20/18). Awaiting results -Patient refused transfer to tertiary center but now is requesting it. Will try [facility] -Continue IV abx with Zosyn 2.25gm Q8H day#13 #Supratherapeutic INR- Resolved -Continue Heparin Drip for thrombus. -Continue to monitor #Back Pain -Lidocaine patch for pain -Flexeril 2.5mg BID PRN #Diarrhea -Improving -Possibly infectious vs mechanical. C.Diff negative. Possibly from recent colectomy -Continue to monitor #Filling defect SVC/Left brachiocephalic -Shown on CTA chest report from 05/23/2018 -UE duplex shows right IJ thrombus -Continue Heparin drip and then transition to Eliquis outpatient #Hypotension -Continue Midodrine -Patient with low BP but has improved -Continue to monitor #Chest pain -Likely due to anxiety. -Resolved #ESRD on HD -HD today (,,Tue) -Epogen for anemia -Will need follow up with Dr Woodard for fistula #CAD -Holding Coreg due to hypotension -Continue Amiodarone as patient has history of shocks from ICD #Acute on Chronic systolic CHF -Improved -No SOB today -Continue HD to remove fluid -On no ARB/DELANO or BB due to low BP #Hypothyroidism -Continue LT4 125 mcg, as per endo #Anxiety -Continue Buspar and Celexa #F/E/N -On no fluids -Electrolytes wnl. -Sodium controlled diet #Prophylaxis -Heparin drip for DVT. -No GI required #Disposition -Full code -Will need transfer to tertiary center Mindy Floyd [id number] Visit type - Emergency Visit Emergency Visit: Yes ED Registration Date: 05/31/18 Care time: The patient presented to the Emergency Department on the above date and was hospitalized for further evaluation of their emergent condition. - New Patient This patient is new to me today: No - Critical Care Critical Care patient: No
--- NOTE | 2018-06-21 11:45 | PN ---
Teaching Attending Note Name of Resident: Mindy Floyd ATTENDING PHYSICIAN STATEMENT I saw and evaluated the patient. I reviewed the resident's note and discussed the case with the resident. I agree with the resident's findings and plan as documented with exceptions below. SUBJECTIVE: Patient seen and examined, denies any back or abdominal pain. No fevers, chills , dyspnea or chest pain. OBJECTIVE: Vital Signs Period Temp Pulse Resp BP Sys/Emery Pulse Ox Last 24 Hr 97.2 F-98.0 F 55-73 18-20 83-130/44-69 96 Intake & Output 06/18/18 06/19/18 06/20/18 06/21/18 23:59 23:59 23:59 23:59 Intake Total 1086 400 818 440 Output Total 340 Balance 746 400 818 440 General: Sitting in bed in no acute distress neck: soft, supple, no JVD Chest: few basilar rales Abdomen:soft, midline surgical incision with no active discharge or erythema, NT throughout, positive bowel sounds Extremities: no edema Musculoskeletal: no spinal tenderness Home Medications Medication Instructions Recorded Amiodarone HCl 1 tab PO DAILY 03/17/18 Levothyroxine [Synthroid -] 1 tab PO DAILY 03/17/18 Pravastatin Sodium [Pravachol -] 1 tab PO DAILY 03/17/18 Acetaminophen [Tylenol] 650 mg PO DAILY PRN 05/31/18 Calcium Carbonate [Calcium] 500 mg PO AC 05/31/18 Citalopram Hydrobromide 20 mg PO DAILY 05/31/18 [Citalopram HBr] Cyanocobalamin [Vitamin B12 -] 100 mcg PO DAILY 05/31/18 Folic Acid - 1 mg PO DAILY 05/31/18 Melatonin/Pyridoxine HCl (B6) 1 each PO HS 05/31/18 [Melatonin Tr 10 mg Tablet] Midodrine HCl [Proamatine -] 5 mg PO TID 05/31/18 Vit B Comp No.3/Folic/C/Biotin 1 each PO DAILY 05/31/18 [Krystina-Zane Rx Tablet] Acetaminophen [Tylenol .Regular 650 mg PO Q4H PRN tablet 06/15/18 Strength -] Buspirone HCl [Buspar -] 10 mg PO TID tablet 06/15/18 Collagenase Clostridium Hist. 1 applic TP DAILY tube 06/15/18 [Santyl -] Cyclobenzaprine HCl 2.5 mg PO Q12H PRN tablet 06/15/18 Heparin - 1,000 unit IVPUSH PRN PRN vial 06/15/18 Heparin - 5,000 unit IVPUSH PRN PRN vial 06/15/18 Heparin - 25,000 unit IV TITR vial 06/15/18 Lidocaine 5% Patch [Lidoderm -] 1 patch TP DAILY patch 06/15/18 Lidocaine Patch Removal [Lidoderm 1 each MC DAILY@2200 each 06/15/18 Patch Removal] Piperacillin/Tazob 2.25 gm [Zosyn 2.25 gm IVPB Q8H-IV vial 06/15/18 -] Ranitidine [Zantac -] 150 mg PO BID tablet 06/15/18 Active Medications Acetaminophen (Tylenol -) 650 mg PO Q4H PRN PRN Reason: HEADACHE Last Admin: 06/19/18 21:47 Dose: 650 mg Amiodarone HCl (Cordarone -) 200 mg PO DAILY [facility] Last Admin: 06/21/18 09:59 Dose: 200 mg Buspirone HCl (Buspar -) 10 mg PO TID [facility] Last Admin: 06/21/18 06:10 Dose: 10 mg Calcium Carbonate (Os-Merlin 500mg -) 500 mg PO TIDAC [facility] Last Admin: 06/21/18 06:10 Dose: 500 mg Citalopram Hydrobromide (Celexa -) 20 mg PO DAILY [facility] Last Admin: 06/21/18 10:00 Dose: 20 mg Collagenase (Santyl -) 1 applic TP DAILY [facility]; Protocol Last Admin: 06/20/18 17:40 Dose: 1 applic Cyanocobalamin (Vitamin B12 -) 100 mcg PO DAILY [facility] Last Admin: 06/21/18 10:01 Dose: 100 mcg Cyclobenzaprine HCl (Cyclobenzaprine Hcl) 2.5 mg PO Q12H PRN PRN Reason: MUSCLE SPASMS Last Admin: 06/15/18 21:42 Dose: 2.5 mg Folic Acid (Folic Acid -) 1 mg PO DAILY [facility] Last Admin: 06/21/18 10:00 Dose: 1 mg Heparin Sodium (Porcine) (Heparin -) 1,000 unit IVPUSH PRN PRN PRN Reason: Heparin Last Admin: 06/21/18 10:23 Dose: 1,000 unit Heparin Sodium (Porcine) (Heparin -) 5,000 unit IVPUSH PRN PRN PRN Reason: Heparin Last Admin: 06/19/18 22:10 Dose: 5,000 unit Piperacillin Sod/Tazobactam (Sod 2.25 gm/ Dextrose) 50 mls @ 100 mls/hr IVPB Q8H-IV JULIAN Last Admin: 06/21/18 10:00 Dose: 100 mls/hr Sodium Chloride (Normal Saline -) 250 mls @ 3,000 mls/hr IV PRN PRN PRN Reason: Hypotension during Dialysis Stop: 06/21/18 19:02 Heparin Sodium (Porcine) 25, (000 unit/ Sodium Chloride) 500 mls @ 20 mls/hr IV TITR JULIAN; Protocol Last Admin: 06/21/18 10:26 Dose: 1,100 unit/hr, 22 mls/hr Levothyroxine Sodium (Synthroid -) 125 mcg PO DAILY@0600 [facility] Last Admin: 06/21/18 06:10 Dose: 125 mcg Lidocaine (Lidoderm Patch -) 1 patch TP DAILY [facility] Last Admin: 06/21/18 10:00 Dose: 1 patch Midodrine (Proamatine -) 5 mg PO TID-MID [facility] Last Admin: 06/21/18 10:01 Dose: 5 mg Miscellaneous (Lidoderm Patch Removal) 1 each MC DAILY@2200 [facility] Last Admin: 06/20/18 23:15 Dose: 1 each Morphine Sulfate (Morphine Sulfate) 1 mg IVPUSH Q4H PRN PRN Reason: PAIN LEVEL 6-10 Last Admin: 06/21/18 01:42 Dose: 1 mg Multivit/Ca Carb/B Cmplx/FA/Prenat (Nephro-Zane -) 1 tablet PO DAILY [facility] Last Admin: 06/21/18 10:00 Dose: 1 tablet Ondansetron HCl (Zofran Injection) 4 mg IVPUSH Q4H PRN PRN Reason: NAUSEA AND/OR VOMITING Last Admin: 06/19/18 02:25 Dose: 4 mg Ranitidine HCl (Zantac -) 150 mg PO BID [facility] Last Admin: 06/21/18 09:59 Dose: 150 mg Laboratory Results - last 24 hr 06/20/18 06/20/18 06/20/18 07:00 12:00 19:05 WBC RBC Hgb Hct MCV MCH MCHC RDW Plt Count MPV PTT (Actin FS) Sodium 140 Potassium 3.5 Chloride 102 Carbon Dioxide 30 Anion Gap 9 BUN 21 H Creatinine 3.5 H Creat Clearance w eGFR 17.51 Random Glucose 121 H Calcium 8.7 Total Bilirubin 0.7 0.6 Direct Bilirubin 0.4 H AST 22 16 ALT 25 18 Alkaline Phosphatase 211 H 179 H Total Protein 5.1 L 4.9 L Albumin 2.6 L 2.7 L Fluid Source Peritoneal Fluid WBC 168,882 Fluid RBC 0 Fluid Neutrophils 93 Fluid Lymphocytes 4 Pleural Monocytes 0 Pleural Mesothelial 3 Pleural Diff Comment 06/20/18 06/21/18 06/21/18 19:05 06:30 06:30 WBC 8.1 RBC 2.90 L Hgb 9.3 L Hct 29.7 L MCV 102.4 H MCH 32.1 MCHC 31.4 L RDW 29.5 H Plt Count 99 L MPV 7.9 PTT (Actin FS) 42.8 H Sodium 139 Potassium 3.7 Chloride 100 Carbon Dioxide 33 H Anion Gap 6 L BUN 13 Creatinine 2.9 H Creat Clearance w eGFR 21.75 Random Glucose 90 Calcium 8.3 L Total Bilirubin 0.8 Direct Bilirubin AST 31 ALT 21 Alkaline Phosphatase 180 H Total Protein 5.1 L Albumin 2.8 L Fluid Source Fluid WBC Fluid RBC Fluid Neutrophils Fluid Lymphocytes Pleural Monocytes Pleural Mesothelial Pleural Diff Comment 06/21/18 06:30 WBC 7.2 RBC 3.07 L Hgb 10.0 L Hct 31.3 L MCV 101.7 H MCH 32.5 MCHC 31.9 L RDW 29.2 H Plt Count 108 L MPV 8.0 PTT (Actin FS) Sodium Potassium Chloride Carbon Dioxide Anion Gap BUN Creatinine Creat Clearance w eGFR Random Glucose Calcium Total Bilirubin Direct Bilirubin AST ALT Alkaline Phosphatase Total Protein Albumin Fluid Source Fluid WBC Fluid RBC Fluid Neutrophils Fluid Lymphocytes Pleural Monocytes Pleural Mesothelial Pleural Diff Comment Microbiology 06/20/18 12:00 Peritoneal Fluid Gram Stain - Final 06/20/18 12:00 Peritoneal Fluid Body Fluid Culture - Preliminary NO AEROBIC GROWTH, 24 HRS 06/20/18 12:00 Peritoneal Fluid AFB Smear Concentration - Preliminary 06/20/18 12:00 Peritoneal Fluid Mycobacterial Culture - Preliminary 06/20/18 12:00 Peritoneal Fluid RODRIGUEZ Preparation - Preliminary 06/20/18 12:00 Peritoneal Fluid Fungal Culture - Preliminary 06/07/18 15:10 Paracentesis AFB Smear Concentration - Final 06/07/18 15:10 Paracentesis Mycobacterial Culture - Preliminary 06/07/18 15:10 Paracentesis Gram Stain - Final 06/07/18 15:10 Paracentesis Body Fluid Culture - Final NO GROWTH OF AEROBIC ORGANISMS AFTER 48 HOURS INCUBATION 06/07/18 15:10 Paracentesis Anaerobic Culture - Final NO ANAEROBES WERE ISOLATED 06/08/18 09:20 Stool Salmonella/Shigella Culture - Final NO GROWTH OF SALMONELLA OR SHIGELLA SPECIES OBTAINED 06/08/18 09:20 Stool Campylobacter Culture - Final NO GROWTH OF CAMPYLOBACTER SPECIES OBTAINED 06/08/18 09:20 Stool Yersinia Culture - Final NO GROWTH OF YERSINIA SPECIES OBTAINED 06/08/18 09:20 Stool Vibrio Culture - Final NO GROWTH OF VIBRIO SPECIES OBTAINED 06/08/18 09:20 Stool Escherichia coli 0157 Culture - Final NO GROWTH OF E COLI 0157 OBTAINED 06/08/18 01:31 Stool Gram Stain - Final 06/08/18 01:31 Stool Clostridium difficile Antigen (FLORINA) - Final 06/08/18 01:31 Stool Clostridium difficile Toxin Assay - Final 06/07/18 15:10 Paracentesis RODRIGUEZ Preparation - Preliminary 06/07/18 15:10 Paracentesis Fungal Culture - Preliminary 06/01/18 13:40 Blood - Peripheral Venous Blood Culture - Final NO GROWTH AFTER 5 DAYS INCUBATION 06/01/18 13:50 Blood - Peripheral Venous Blood Culture - Final NO GROWTH AFTER 5 DAYS INCUBATION ASSESSMENT AND PLAN: 67 yom with PMhx of CAD s/p CABG 2005, chronic systolic HF s/p ICD ([employer]), COPD on chronic O2 2-3L, ESRD on HD, hypotension on midodrine, HTN , HLD, admitted to [facility] for hip fracture s/p ORIF, course complicated by mesentric ischemia, s/p right hemicolectomy/jejunal/ileal resection, readmitted on 05/23/2018 with shortness of breath/nausea with HD, found with ascitis s/p paracentesis wiht 700 seropurulent fluid, reported cultures with Kleb Oxytoca, s /p ceftriaxone, d/dena on ?Cipro/flagyl x 7 days readmitted with chest pain/ dyspnea/anxiety during HD, found with ascitis, elevated INR . 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 SVC thrombus -CAD s/p CABG -ICD s/p reported h/o shocks on Amiodarone -COPD on 2-3 L home oxygen -Hypotension on Midodrine (off coreg/ACEi) -Hypothyroidism -Hypoalbuminemia -Anemia, suspect multifactorial s/p 1 unit PRBC 06/06 -Low back pain, musculoskeletal, resolved Plan: repeat paracentesis fluid studies noted, WBC higher. Follow up cultures. Zosyn per ID. Readdressed possible transfer to tertiary care center given rising WBC in peritoneal fluid and if needs additional intervention Follow up with surgery/GI. Patient agreable. Will contact [facility]. Heparin drip dc morpine. Lidocaine patch/flexeril prn. Cardiology input noted. Amiodarone/Midodrine Citalopram/buspirone GIPPX Raniditine Dispo pending discussion with [facility]/tertiary care center and surgery/GI/ID input. Plan discussed with patient in detail, all questions answered.
[2018-06-21] MEDS: CYCLOBENZAPRINE HCL 5 MG TABLET PO PRN ×2 (11:57→17:37)
--- NOTE | 2018-06-21 12:01 | PN ---
Progress Note (short form) - Note Progress Note: s: no chest pain, palps, dizzy, dyspnea Current Medications Acetaminophen (Tylenol -) 650 mg PO Q4H PRN PRN Reason: HEADACHE Last Admin: 06/19/18 21:47 Dose: 650 mg Amiodarone HCl (Cordarone -) 200 mg PO DAILY [facility] Last Admin: 06/21/18 09:59 Dose: 200 mg Buspirone HCl (Buspar -) 10 mg PO TID [facility] Last Admin: 06/21/18 06:10 Dose: 10 mg Calcium Carbonate (Os-Merlin 500mg -) 500 mg PO TIDAC [facility] Last Admin: 06/21/18 06:10 Dose: 500 mg Citalopram Hydrobromide (Celexa -) 20 mg PO DAILY [facility] Last Admin: 06/21/18 10:00 Dose: 20 mg Collagenase (Santyl -) 1 applic TP DAILY [facility]; Protocol Last Admin: 06/20/18 17:40 Dose: 1 applic Cyanocobalamin (Vitamin B12 -) 100 mcg PO DAILY [facility] Last Admin: 06/21/18 10:01 Dose: 100 mcg Cyclobenzaprine HCl (Cyclobenzaprine Hcl) 2.5 mg PO Q12H PRN PRN Reason: MUSCLE SPASMS Last Admin: 06/15/18 21:42 Dose: 2.5 mg Folic Acid (Folic Acid -) 1 mg PO DAILY [facility] Last Admin: 06/21/18 10:00 Dose: 1 mg Heparin Sodium (Porcine) (Heparin -) 1,000 unit IVPUSH PRN PRN PRN Reason: Heparin Last Admin: 06/21/18 10:23 Dose: 1,000 unit Heparin Sodium (Porcine) (Heparin -) 5,000 unit IVPUSH PRN PRN PRN Reason: Heparin Last Admin: 06/19/18 22:10 Dose: 5,000 unit Piperacillin Sod/Tazobactam (Sod 2.25 gm/ Dextrose) 50 mls @ 100 mls/hr IVPB Q8H-IV JULIAN Last Admin: 06/21/18 10:00 Dose: 100 mls/hr Sodium Chloride (Normal Saline -) 250 mls @ 3,000 mls/hr IV PRN PRN PRN Reason: Hypotension during Dialysis Stop: 06/21/18 19:02 Heparin Sodium (Porcine) 25, (000 unit/ Sodium Chloride) 500 mls @ 20 mls/hr IV TITR JULIAN; Protocol Last Admin: 06/21/18 10:26 Dose: 1,100 unit/hr, 22 mls/hr Levothyroxine Sodium (Synthroid -) 125 mcg PO DAILY@0600 [facility] Last Admin: 06/21/18 06:10 Dose: 125 mcg Lidocaine (Lidoderm Patch -) 1 patch TP DAILY [facility] Last Admin: 06/21/18 10:00 Dose: 1 patch Midodrine (Proamatine -) 5 mg PO TID-MID [facility] Last Admin: 06/21/18 10:01 Dose: 5 mg Miscellaneous (Lidoderm Patch Removal) 1 each MC DAILY@2200 [facility] Last Admin: 06/20/18 23:15 Dose: 1 each Multivit/Ca Carb/B Cmplx/FA/Prenat (Nephro-Zane -) 1 tablet PO DAILY [facility] Last Admin: 06/21/18 10:00 Dose: 1 tablet Ondansetron HCl (Zofran Injection) 4 mg IVPUSH Q4H PRN PRN Reason: NAUSEA AND/OR VOMITING Last Admin: 06/19/18 02:25 Dose: 4 mg Ranitidine HCl (Zantac -) 150 mg PO BID [facility] Last Admin: 06/21/18 09:59 Dose: 150 mg - Objective Vital Signs Period Temp Pulse Resp BP Sys/Emery Pulse Ox Last 24 Hr 97.2 F-98.0 F 55-73 18-20 83-130/44-69 96 Constitutional: Yes: Well Nourished, No Distress, Calm Cardiovascular: Yes: Regular Rate and Rhythm, S1, S2. No: JVD, Gallop, Murmur Respiratory: Yes: Regular, CTA Bilaterally. No: Accessory Muscle Use, Rales, Wheezes Extremities: No: Cold Edema: No Neurological: Yes: Alert, Oriented Psychiatric: No: Agitated Assessment/Plan Echo 05/2018 nl LV size, mildly reduced function EF 45-50%, mild global hypokinesis of LV, nl RV, ppm lead in RV and RA, tr TR EKG: sinus, prolonged QTC, old septal infarct ascites: - etiology unclear, per GI - s/p paracentesis, 168 wbcs noted - possible transfer to tertiary center acute on chronic systolic HF: - mildly reduced EF on echo - appeared volume up as above on admit with SOB - sx's resolved with HD--volume management per renal - appears euvolemic at present time, apart from ascites which is being managed by GI - not on DELANO/BB due to low BP - pt advised to see us in f/u to maintain general cardio care in this area, as he is currently not being closely followed (for chf and cad) Prolonged QTc - avoid QT prolonging agents - maintain K >4, Mg >2 s/p ICD ([employer]) - outpatient follow up, Dr. Stover - recent device checks unremarkable per patient - cont amiodarone hypotension - continue midodrine - sbp remains 90s at times (>> 80s), but stable - same plan ESRD on HD - per renal CAD, s/p CABG - cont statin - holding aspirin due to elevated INR and anemia mesenteric ischemia - recent dx, s/p surgery during recent admission for hip fx anemia - manage per primary ascites: -GI, ID, surgery following, on abx. manage per primary Right IJ dvt: -plans per vascular, on hep gtt
--- NOTE | 2018-06-21 12:15 | PN ---
Progress Note (short form) - Note Progress Note: Called by nursing staff for placement of peripheral IV. Left 22 gauge IV inserted in the upper arm. Blood aspirated well and flushed with 20 cc NS. Line secured in place with tegaderm.
--- NOTE | 2018-06-21 13:20 | PN ---
Progress Note, Physician History of Present Illness: Pt seen and examined at bedside. He is awake and alert. He tolerated HD last night. - Current Medication List Current Medications: Active Medications Acetaminophen (Tylenol -) 650 mg PO Q4H PRN PRN Reason: HEADACHE Last Admin: 06/19/18 21:47 Dose: 650 mg Amiodarone HCl (Cordarone -) 200 mg PO DAILY [facility] Last Admin: 06/21/18 09:59 Dose: 200 mg Buspirone HCl (Buspar -) 10 mg PO TID [facility] Last Admin: 06/21/18 06:10 Dose: 10 mg Calcium Carbonate (Os-Merlin 500mg -) 500 mg PO TIDAC [facility] Last Admin: 06/21/18 12:00 Dose: 500 mg Citalopram Hydrobromide (Celexa -) 20 mg PO DAILY [facility] Last Admin: 06/21/18 10:00 Dose: 20 mg Collagenase (Santyl -) 1 applic TP DAILY [facility]; Protocol Last Admin: 06/20/18 17:40 Dose: 1 applic Cyanocobalamin (Vitamin B12 -) 100 mcg PO DAILY [facility] Last Admin: 06/21/18 10:01 Dose: 100 mcg Cyclobenzaprine HCl (Cyclobenzaprine Hcl) 2.5 mg PO Q12H PRN PRN Reason: MUSCLE SPASMS Last Admin: 06/21/18 11:57 Dose: 2.5 mg Folic Acid (Folic Acid -) 1 mg PO DAILY [facility] Last Admin: 06/21/18 10:00 Dose: 1 mg Heparin Sodium (Porcine) (Heparin -) 1,000 unit IVPUSH PRN PRN PRN Reason: Heparin Last Admin: 06/21/18 10:23 Dose: 1,000 unit Heparin Sodium (Porcine) (Heparin -) 5,000 unit IVPUSH PRN PRN PRN Reason: Heparin Last Admin: 06/19/18 22:10 Dose: 5,000 unit Piperacillin Sod/Tazobactam (Sod 2.25 gm/ Dextrose) 50 mls @ 100 mls/hr IVPB Q8H-IV [facility] Last Admin: 06/21/18 10:00 Dose: 100 mls/hr Sodium Chloride (Normal Saline -) 250 mls @ 3,000 mls/hr IV PRN PRN PRN Reason: Hypotension during Dialysis Stop: 06/21/18 19:02 Heparin Sodium (Porcine) 25, (000 unit/ Sodium Chloride) 500 mls @ 20 mls/hr IV TITR [facility]; Protocol Last Admin: 06/21/18 10:26 Dose: 1,100 unit/hr, 22 mls/hr Levothyroxine Sodium (Synthroid -) 125 mcg PO DAILY@0600 [facility] Last Admin: 06/21/18 06:10 Dose: 125 mcg Lidocaine (Lidoderm Patch -) 1 patch TP DAILY [facility] Last Admin: 06/21/18 10:00 Dose: 1 patch Midodrine (Proamatine -) 5 mg PO TID-MID [facility] Last Admin: 06/21/18 10:01 Dose: 5 mg Miscellaneous (Lidoderm Patch Removal) 1 each MC DAILY@2200 [facility] Last Admin: 06/20/18 23:15 Dose: 1 each Multivit/Ca Carb/B Cmplx/FA/Prenat (Nephro-Zane -) 1 tablet PO DAILY [facility] Last Admin: 06/21/18 10:00 Dose: 1 tablet Ondansetron HCl (Zofran Injection) 4 mg IVPUSH Q4H PRN PRN Reason: NAUSEA AND/OR VOMITING Last Admin: 06/19/18 02:25 Dose: 4 mg Ranitidine HCl (Zantac -) 150 mg PO BID [facility] Last Admin: 06/21/18 09:59 Dose: 150 mg - Objective Vital Signs: Vital Signs Temperature 97.7 F 06/21/18 11:21 Pulse Rate 61 06/21/18 11:21 Respiratory Rate 20 06/21/18 09:51 Blood Pressure 129/63 06/21/18 11:21 O2 Sat by Pulse Oximetry (%) 96 06/20/18 21:00 Constitutional: Yes: Calm Eyes: Yes: Conjunctiva Clear HENT: Yes: Atraumatic Neck: Yes: Supple Cardiovascular: Yes: S1, S2 Respiratory: Yes: On Nasal O2 Gastrointestinal: Yes: Soft, Other (ascited improved) Genitourinary: Yes: WNL Musculoskeletal: Yes: Muscle Weakness Edema: No Neurological: Yes: Oriented Psychiatric: Yes: Oriented Labs: CBC, BMP 06/21/18 06:30 06/21/18 06:30 INR, PTT INR 1.23 (0.83-1.09) H 06/20/18 07:00 Problem List - Problems (1) ESRD (end stage renal disease) Code(s): N18.6 - END STAGE RENAL DISEASE Assessment/Plan Current Medications Generic Name Dose Route Start Last Admin Trade Name Lois PRN Reason Stop Dose Admin Acetaminophen 650 mg 06/10/18 00:02 06/19/18 21:47 Tylenol - PO 650 mg Q4H PRN Administration HEADACHE Amiodarone HCl 200 mg 06/10/18 10:00 06/21/18 09:59 Cordarone - PO 200 mg DAILY [facility] Administration Buspirone HCl 10 mg 06/10/18 06:00 06/21/18 06:10 Buspar - PO 10 mg TID [facility] Administration Calcium Carbonate 500 mg 06/10/18 07:00 06/21/18 12:00 Os-Merlin 500mg - PO 500 mg TIDAC [facility] Administration Citalopram Hydrobromide 20 mg 06/10/18 10:00 06/21/18 10:00 Celexa - PO 20 mg DAILY [facility] Administration Collagenase 1 applic 06/10/18 10:00 06/20/18 17:40 Santyl - TP 1 applic DAILY [facility] Administration Protocol Cyanocobalamin 100 mcg 06/10/18 10:00 06/21/18 10:01 Vitamin B12 - PO 100 mcg DAILY [facility] Administration Cyclobenzaprine HCl 2.5 mg 06/13/18 12:19 06/21/18 11:57 Cyclobenzaprine Hcl PO 2.5 mg Q12H PRN Administration MUSCLE SPASMS Folic Acid 1 mg 06/10/18 10:00 06/21/18 10:00 Folic Acid - PO 1 mg DAILY [facility] Administration Heparin Sodium (Porcine) 1,000 unit 06/19/18 15:14 06/21/18 10:23 Heparin - IVPUSH 1,000 unit PRN PRN Administration Heparin Heparin Sodium (Porcine) 5,000 unit 06/19/18 15:14 06/19/18 22:10 Heparin - IVPUSH 5,000 unit PRN PRN Administration Heparin Piperacillin Sod/Tazobactam 50 mls @ 100 mls/hr 06/15/18 18:00 06/21/18 10:00 Sod 2.25 gm/ Dextrose IVPB 100 mls/hr Q8H-IV [facility] Administration Sodium Chloride 250 mls @ 3,000 mls/hr 06/20/18 19:03 Normal Saline - IV 06/21/18 19:02 PRN PRN Hypotension during Dialysis Heparin Sodium (Porcine) 25, 500 mls @ 20 mls/hr 06/20/18 19:30 06/21/18 10: 26 000 unit/ Sodium Chloride IV 1,100 unit/hr TITR [facility] 22 mls/hr Administration Protocol 1,000 UNIT/HR Levothyroxine Sodium 125 mcg 06/10/18 06:00 06/21/18 06:10 Synthroid - PO 125 mcg DAILY@0600 [facility] Administration Lidocaine 1 patch 06/12/18 10:00 06/21/18 10:00 Lidoderm Patch - TP 1 patch DAILY [facility] Administration Midodrine 5 mg 06/08/18 10:00 06/21/18 10:01 Proamatine - PO 5 mg TID-MID [facility] Administration Miscellaneous 1 each 06/12/18 22:00 06/20/18 23:15 Lidoderm Patch Removal MC 1 each DAILY@2200 [facility] Administration Multivit/Ca Carb/B Cmplx/FA/Prenat 1 tablet 06/10/18 10:00 06/21/18 10:00 Nephro-Zane - PO 1 tablet DAILY [facility] Administration Ondansetron HCl 4 mg 06/18/18 11:57 06/19/18 02:25 Zofran Injection IVPUSH 4 mg Q4H PRN Administration NAUSEA AND/OR VOMITING Ranitidine HCl 150 mg 06/12/18 10:30 06/21/18 09:59 Zantac - PO 150 mg BID [facility] Administration Impression 1. ESRD 2. CAD 3. CABG 4. COPD 5. CHF 6. SBP 7. DVT 8. hx mesinteric ischemia 9. hypothyroidism 10. gout 11. hld 12. pleural effusion 13. anemia 14. abd pain 15. ascites Plan - will arrange for HD tomorrow - volume status is stable - did not UF volume on HD yesterday as he had about 6 liters removed in paracentesis - will need fistula once medically stable - will follow Dr Jones
--- NOTE | 2018-06-21 14:03 | PN ---
Progress Note, Physician History of Present Illness: patient was tapped wbc has increased a lot - Current Medication List Current Medications: Active Medications Acetaminophen (Tylenol -) 650 mg PO Q4H PRN PRN Reason: HEADACHE Last Admin: 06/19/18 21:47 Dose: 650 mg Amiodarone HCl (Cordarone -) 200 mg PO DAILY [facility] Last Admin: 06/21/18 09:59 Dose: 200 mg Buspirone HCl (Buspar -) 10 mg PO TID [facility] Last Admin: 06/21/18 06:10 Dose: 10 mg Calcium Carbonate (Os-Merlin 500mg -) 500 mg PO TIDAC [facility] Last Admin: 06/21/18 12:00 Dose: 500 mg Citalopram Hydrobromide (Celexa -) 20 mg PO DAILY [facility] Last Admin: 06/21/18 10:00 Dose: 20 mg Collagenase (Santyl -) 1 applic TP DAILY [facility]; Protocol Last Admin: 06/20/18 17:40 Dose: 1 applic Cyanocobalamin (Vitamin B12 -) 100 mcg PO DAILY [facility] Last Admin: 06/21/18 10:01 Dose: 100 mcg Cyclobenzaprine HCl (Cyclobenzaprine Hcl) 2.5 mg PO Q12H PRN PRN Reason: MUSCLE SPASMS Last Admin: 06/21/18 11:57 Dose: 2.5 mg Epoetin Josemanuel (Epogen -) 10,000 unit IVPUSH ONCE ONE Stop: 06/22/18 13:21 Folic Acid (Folic Acid -) 1 mg PO DAILY [facility] Last Admin: 06/21/18 10:00 Dose: 1 mg Heparin Sodium (Porcine) (Heparin -) 1,000 unit IVPUSH PRN PRN PRN Reason: Heparin Last Admin: 06/21/18 10:23 Dose: 1,000 unit Heparin Sodium (Porcine) (Heparin -) 5,000 unit IVPUSH PRN PRN PRN Reason: Heparin Last Admin: 06/19/18 22:10 Dose: 5,000 unit Piperacillin Sod/Tazobactam (Sod 2.25 gm/ Dextrose) 50 mls @ 100 mls/hr IVPB Q8H-IV [facility] Last Admin: 06/21/18 10:00 Dose: 100 mls/hr Sodium Chloride (Normal Saline -) 250 mls @ 3,000 mls/hr IV PRN PRN PRN Reason: Hypotension during Dialysis Stop: 06/21/18 19:02 Heparin Sodium (Porcine) 25, (000 unit/ Sodium Chloride) 500 mls @ 20 mls/hr IV TITR [facility]; Protocol Last Admin: 06/21/18 10:26 Dose: 1,100 unit/hr, 22 mls/hr Sodium Chloride (Normal Saline -) 250 mls @ 3,000 mls/hr IV PRN PRN PRN Reason: Hypotension during Dialysis Stop: 06/22/18 13:20 Levothyroxine Sodium (Synthroid -) 125 mcg PO DAILY@0600 [facility] Last Admin: 06/21/18 06:10 Dose: 125 mcg Lidocaine (Lidoderm Patch -) 1 patch TP DAILY [facility] Last Admin: 06/21/18 10:00 Dose: 1 patch Midodrine (Proamatine -) 5 mg PO TID-MID [facility] Last Admin: 06/21/18 10:01 Dose: 5 mg Miscellaneous (Lidoderm Patch Removal) 1 each MC DAILY@2200 [facility] Last Admin: 06/20/18 23:15 Dose: 1 each Multivit/Ca Carb/B Cmplx/FA/Prenat (Nephro-Zane -) 1 tablet PO DAILY [facility] Last Admin: 06/21/18 10:00 Dose: 1 tablet Ondansetron HCl (Zofran Injection) 4 mg IVPUSH Q4H PRN PRN Reason: NAUSEA AND/OR VOMITING Last Admin: 06/19/18 02:25 Dose: 4 mg Ranitidine HCl (Zantac -) 150 mg PO BID [facility] Last Admin: 06/21/18 09:59 Dose: 150 mg - Objective Vital Signs: Vital Signs Temperature 97.7 F 06/21/18 11:21 Pulse Rate 61 06/21/18 11:21 Respiratory Rate 20 06/21/18 09:51 Blood Pressure 129/63 06/21/18 11:21 O2 Sat by Pulse Oximetry (%) 96 06/20/18 21:00 Constitutional: Yes: No Distress, Calm Cardiovascular: Yes: S1, S2 Respiratory: Yes: Regular, CTA Bilaterally Gastrointestinal: Yes: Normal Bowel Sounds, Soft Musculoskeletal: Yes: WNL Extremities: Yes: Other Neurological: Yes: Alert, Oriented Psychiatric: Yes: Alert, Oriented Labs: CBC, BMP 06/21/18 06:30 06/21/18 06:30 INR, PTT INR 1.23 (0.83-1.09) H 06/20/18 07:00 Assessment/Plan ASSESSMENT AND PLAN: (1) Hypotension Code(s): I95.9 - HYPOTENSION, UNSPECIFIED (2) ESRD (end stage renal disease) Code(s): N18.6 - END STAGE RENAL DISEASE (3) Ascites Code(s): R18.8 - OTHER ASCITES (4) Supratherapeutic INR Code(s): R79.1 - ABNORMAL COAGULATION PROFILE (5) CAD (coronary artery disease) Code(s): I25.10 - ATHSCL HEART DISEASE OF [place] CORONARY ARTERY W/O ANG PCTRS (6) CHF (congestive heart failure) Code(s): I50.9 - HEART FAILURE, UNSPECIFIED Qualifiers: Heart failure chronicity: acute on chronic (7) Hypothyroid Code(s): E03.9 - HYPOTHYROIDISM, UNSPECIFIED (8) SBP (secondary bacterial peritonitis) Code(s): K65.2 - SPONTANEOUS BACTERIAL PERITONITIS (9) Anxiety -consult psychiatry 10 b/l heel ulcer plan continue abx tapped wbc noted patient needs to be txed to tertiary care
--- NOTE | 2018-06-21 16:16 | PATH ---
Cytology Non-Gynecological Report Patient Name: LARY RUBIN Med. Rec. #: [id number] /Age/Gender: 1950 (Age: 67) / M Account: [id number] Location: [address] [place] [address] Taken: 06/20/2018 Received: 06/20/2018 Reported: 06/21/2018 Physicians: Arnold Jacobs M.D. Specimen(s) Received A: PERITONEAL FLUID B: PERITONEAL FLUID Clinical History Ascites Final Diagnosis A & B. ABDOMINAL FLUID, RLQ, PARACENTESIS: SATISFACTORY FOR EVALUATION. NO MALIGNANT CELLS IDENTIFIED. ACUTE INFLAMMATORY EXUDATE COMPRISED OF NUMEROUS NEUTROPHILS, SCATTERED MACROPHAGES, AND RARE LYMPHOCYTES PRESENT. Electronically Signed Bianca Dimas M.D. Gross Description A. Approximately 50 cc of yellow fluid received fixed in 50% alcohol. One cytofunnel prepared and Pap stained. One cellblock prepared. B. Approximately 6200 cc of yellow fluid received fresh. One cytofunnel prepared and Pap stained. One cellblock prepared.
--- NOTE | 2018-06-21 16:32 | PN ---
Progress Note, Physician Chief Complaint: Ascites History of Present Illness: Pt seen/examined at bedside, feeling better today s/p paracentesis yesterday ~ 6L removed. Denies abdominal pain, n/v, fever/chills. Moving bowels. No complaints currently. - Current Medication List Current Medications: Active Medications Acetaminophen (Tylenol -) 650 mg PO Q4H PRN PRN Reason: HEADACHE Last Admin: 06/19/18 21:47 Dose: 650 mg Amiodarone HCl (Cordarone -) 200 mg PO DAILY [facility] Last Admin: 06/21/18 09:59 Dose: 200 mg Buspirone HCl (Buspar -) 10 mg PO TID [facility] Last Admin: 06/21/18 14:39 Dose: 10 mg Calcium Carbonate (Os-Merlin 500mg -) 500 mg PO TIDAC [facility] Last Admin: 06/21/18 12:00 Dose: 500 mg Citalopram Hydrobromide (Celexa -) 20 mg PO DAILY [facility] Last Admin: 06/21/18 10:00 Dose: 20 mg Collagenase (Santyl -) 1 applic TP DAILY [facility]; Protocol Last Admin: 06/20/18 17:40 Dose: 1 applic Cyanocobalamin (Vitamin B12 -) 100 mcg PO DAILY [facility] Last Admin: 06/21/18 10:01 Dose: 100 mcg Cyclobenzaprine HCl (Cyclobenzaprine Hcl) 2.5 mg PO Q12H PRN PRN Reason: MUSCLE SPASMS Last Admin: 06/21/18 11:57 Dose: 2.5 mg Epoetin Josemanuel (Epogen -) 10,000 unit IVPUSH ONCE ONE Stop: 06/22/18 13:21 Folic Acid (Folic Acid -) 1 mg PO DAILY [facility] Last Admin: 06/21/18 10:00 Dose: 1 mg Heparin Sodium (Porcine) (Heparin -) 1,000 unit IVPUSH PRN PRN PRN Reason: Heparin Last Admin: 06/21/18 10:23 Dose: 1,000 unit Heparin Sodium (Porcine) (Heparin -) 5,000 unit IVPUSH PRN PRN PRN Reason: Heparin Last Admin: 06/19/18 22:10 Dose: 5,000 unit Piperacillin Sod/Tazobactam (Sod 2.25 gm/ Dextrose) 50 mls @ 100 mls/hr IVPB Q8H-IV [facility] Last Admin: 06/21/18 10:00 Dose: 100 mls/hr Sodium Chloride (Normal Saline -) 250 mls @ 3,000 mls/hr IV PRN PRN PRN Reason: Hypotension during Dialysis Stop: 06/21/18 19:02 Heparin Sodium (Porcine) 25, (000 unit/ Sodium Chloride) 500 mls @ 20 mls/hr IV TITR [facility]; Protocol Last Admin: 06/21/18 10:26 Dose: 1,100 unit/hr, 22 mls/hr Sodium Chloride (Normal Saline -) 250 mls @ 3,000 mls/hr IV PRN PRN PRN Reason: Hypotension during Dialysis Stop: 06/22/18 13:20 Levothyroxine Sodium (Synthroid -) 125 mcg PO DAILY@0600 [facility] Last Admin: 06/21/18 06:10 Dose: 125 mcg Lidocaine (Lidoderm Patch -) 1 patch TP DAILY [facility] Last Admin: 06/21/18 10:00 Dose: 1 patch Midodrine (Proamatine -) 5 mg PO TID-MID [facility] Last Admin: 06/21/18 14:39 Dose: 5 mg Miscellaneous (Lidoderm Patch Removal) 1 each MC DAILY@2200 [facility] Last Admin: 06/20/18 23:15 Dose: 1 each Multivit/Ca Carb/B Cmplx/FA/Prenat (Nephro-Zane -) 1 tablet PO DAILY [facility] Last Admin: 06/21/18 10:00 Dose: 1 tablet Ondansetron HCl (Zofran Injection) 4 mg IVPUSH Q4H PRN PRN Reason: NAUSEA AND/OR VOMITING Last Admin: 06/19/18 02:25 Dose: 4 mg Ranitidine HCl (Zantac -) 150 mg PO BID [facility] Last Admin: 06/21/18 09:59 Dose: 150 mg - Objective Vital Signs: Vital Signs Temperature 97.3 F L 06/21/18 15:02 Pulse Rate 71 06/21/18 15:02 Respiratory Rate 20 06/21/18 15:02 Blood Pressure 121/59 L 06/21/18 15:02 O2 Sat by Pulse Oximetry (%) 96 06/20/18 21:00 Constitutional: Yes: Well Nourished, No Distress, Calm Cardiovascular: Yes: WNL, Regular Rate and Rhythm Respiratory: Yes: WNL, Regular, CTA Bilaterally Gastrointestinal: Yes: WNL, Normal Bowel Sounds, Soft, Other (Abd soft, nt, nd ( s/p paracentesis yesterday)) Labs: CBC, BMP 06/21/18 06:30 06/21/18 06:30 INR, PTT INR 1.23 (0.83-1.09) H 06/20/18 07:00 Problem List - Problems (1) Ascites Assessment/Plan: 67 yo male h/o CAD s/p CABG (2005), CHF s/p ICD, COPD on home O2, ESRD on HD, recently admitted to [facility] for hip fracture s/p ORIF, with course complicated by mesenteric ischemia, s/p right hemicolectomy presenting with chest pain and sob with ascites of unclear exact etiology, no known h/o liver disease. LV paracenetsis performed yesterday (~6L) with fluid analysis revealing WCC >160K, with marked neutrophilia overall concerning for secondary peritonitis though exact etiology remains unclear. SAAG <1.1, not suggestive of portal htn etiology. Cultures pending. Pt appears well. -Await remainder of fluid studies including total protein, glucose, LDH and cultures (spoke with lab) -Antibiotics per ID -Surgery on board -Pending possible transfer to [facility] Discussed with medicine attending Code(s): R18.8 - OTHER ASCITES Qualifiers: Ascites type: other type Qualified Code(s): R18.8 - Other ascites
--- NOTE | 2018-06-21 17:35 | DS ---
Physical Exam: SUBJECTIVE: Patient seen and examined by me at bedside. No acute events S/P Paracentesis yesterday with 6200cc removed and >160k WBC predominately neutrophilic Reports improved abdominal pain with no shortness of breath. Otherwise, denies any fever, chills, nausea, vomiting, chest pain, palpitations , headaches OBJECTIVE: Vital Signs Period Temp Pulse Resp BP Sys/Emery Pulse Ox Last 24 Hr 97.3 F-98.0 F 55-72 18-20 83-130/44-69 96 PHYSICAL EXAM GENERAL: The patient is awake, alert, frail looking and fully oriented, in no acute distress. EYES: Sclera anicteric, conjunctiva clear. No ptosis. ENT: Moist mucous membranes. LUNGS: CTA no wheezing or no accessory muscle use. HEART: Regular rate and rhythm, S1, S2 with (+) JOSIE ABDOMEN: Soft, nontender, nondistended, normoactive bowel sounds (+) vertical incisional scar C/D/I EXTREMITIES: No edema. (+) Stage I ulcer of left heel and second toe SKIN: Warm, dry, normal turgor, no rashes or lesions noted Laboratory Results 06/21/18 06:30 06/21/18 06:30 06/21/18 06:30 Total Bilirubin 0.8 AST 31 ALT 21 Alkaline Phosphatase 180 H Total Protein 5.1 L Albumin 2.8 L 06/20/18 06/20/18 12:00 12:00 Fluid Source Peritoneal Fluid WBC 168,882 Fluid Neutrophils 93 Fluid Lymphocytes 4 Fluid Glucose 17 Fluid Albumin 2.0 Fluid Amylase 40 Fluid Triglycerides 158 Microbiology 06/20/18 12:00 Peritoneal Fluid Gram Stain - Final 06/20/18 12:00 Peritoneal Fluid Body Fluid Culture - Preliminary NO AEROBIC GROWTH, 24 HRS 06/20/18 12:00 Peritoneal Fluid AFB Smear Concentration - Preliminary 06/20/18 12:00 Peritoneal Fluid Mycobacterial Culture - Preliminary 06/20/18 12:00 Peritoneal Fluid RODRIGUEZ Preparation - Preliminary 06/20/18 12:00 Peritoneal Fluid Fungal Culture - Preliminary 06/07/18 15:10 Paracentesis AFB Smear Concentration - Final 06/07/18 15:10 Paracentesis Mycobacterial Culture - Preliminary 06/07/18 15:10 Paracentesis Gram Stain - Final 06/07/18 15:10 Paracentesis Body Fluid Culture - Final NO GROWTH OF AEROBIC ORGANISMS AFTER 48 HOURS INCUBATION 06/07/18 15:10 Paracentesis Anaerobic Culture - Final NO ANAEROBES WERE ISOLATED 06/08/18 09:20 Stool Salmonella/Shigella Culture - Final NO GROWTH OF SALMONELLA OR SHIGELLA SPECIES OBTAINED 06/08/18 09:20 Stool Campylobacter Culture - Final NO GROWTH OF CAMPYLOBACTER SPECIES OBTAINED 06/08/18 09:20 Stool Yersinia Culture - Final NO GROWTH OF YERSINIA SPECIES OBTAINED 06/08/18 09:20 Stool Vibrio Culture - Final NO GROWTH OF VIBRIO SPECIES OBTAINED 06/08/18 09:20 Stool Escherichia coli 0157 Culture - Final NO GROWTH OF E COLI 0157 OBTAINED 06/08/18 01:31 Stool Gram Stain - Final 06/08/18 01:31 Stool Clostridium difficile Antigen (FLORINA) - Final 06/08/18 01:31 Stool Clostridium difficile Toxin Assay - Final 06/07/18 15:10 Paracentesis RODRIGUEZ Preparation - Preliminary 06/07/18 15:10 Paracentesis Fungal Culture - Preliminary 06/01/18 13:40 Blood - Peripheral Venous Blood Culture - Final NO GROWTH AFTER 5 DAYS INCUBATION 06/01/18 13:50 Blood - Peripheral Venous Blood Culture - Final NO GROWTH AFTER 5 DAYS INCUBATION HOSPITAL COURSE: Patient is a 67 y/o Male with PMHx of CAD s/p CABG, Defibrillator ([employer]), COPD (on 2-3L Home O2), ESRD (On HD // via Right Tunnel Cath) , systolic CHF who presented from [facility] for chest pain and shortness of breath. Said it was an anxiety component. Cardiac work up negative for ACS but echo revealed mildly reduced function EF 45-50%, mild global hypokinesis of LV, nl RV, ppm lead in RV and RA, tr TR but was not in acute CHF exacerbation. EKG: sinus, prolonged QTC (544), old septal infarct Patient was found to have a distended abdomen with an incisional scar. Looked through his surgical record. In Summary of prior hospitalization at [facility]: 04/26/2018 with R-intertrochanteric hip fx s/p ORIF complicated by mesenteric ischemia. He had an ex-lap with SBP (~55cm jejunum with extended R- hemicollectomy and 19cm ileum resected). He was discharged to [facility] 05/08/2018 on NOAC. He syncopized on 05/12 and had his AICD interrogated which had no documented significant issues. At that visit he was noted to be anemic and was transfused 2 PRBC at HD. Discharged back to rehab on 05/17. On 05/23/18 to 05/29/18 he was admitted for a third time to [facility] due to SOB/nausea at HD and was treated for SOB 2/2 fluid overload and SBP. That hospitalization he is documented as having a lactic acidosis. Echo done which revealed moderate global hypokinesis. He had imaging done showing free intraperitoneal fluid which grew out Klebsiella oxytoca and he was discharged on PO cipro/flagyl ( total of 14 days abx recommended). He had repeated bouts of hypotension documented; his antihypertensives were DCd and he was started on midodrine 5 TID prior to being sent back to [place] on 05/29 Patient was found to have abdominal pain, back pain with abdominal distention. U/S and CT revealed Ascites with Paracentesis done and revealing WBC 69k, predominately neutrophils, exudative picture, concerning for peritonitis. Started him on Zosyn, renally dosed. Patient did not have a septic picture and was clinically stable. However, in the last week, patient complains of worsening back pain, stomach pain and had episodes of vomiting. However, no leukocytosis or fevers. reviewed op notes by Surgeon and called surgeon from [facility] and spoke with Dr. Deirdre Soliman pt had damage control laparotomy 04/28 with resection of portion of jejunum and right colon and transverse colon and all of omentum, with surgicel and packing in upper quadrants and abdominal wound VAC. 04/30 was returned to OR for washout and anastomoses - additional length of terminal ileum was taken to facilitate tension free anastomosis with left colon/splenic flexure, and jejunojejunal anastomosis performed as well Symptoms and clinical presentation here quite similar to that here on 05/31 - without clinical picture of peritonitis He is only 6 weeks out from above operations, and surgery now would be difficult with risks including significant adhesions, bowel injury, possible need for ostomy and potential for wound complications, in addition to his underlying comorbidities CT abdomen repeated (06/15/17) revealed large volume ascites with a small amount of air identified in the left upper quadrant. Underlying infections to be excluded. Called [facility] and patient was accepted for transfer for further evaluation by Surgical team, however, patient declined at the time. Patient continued to have abdominal pain and shortness of breath. Abdominal pain worsened with distention and it was decided to do a repeat Paracentesis. However, patient was found to be hypotensive due to vomiting while on Midodrine and was too unstable for repeat Paracenetesis. Patients nausea and vomiting improved and patient tolerated Midodrine with improved BP. Patient then had repeat Paracentesis (06/20/18) and revealed Peritoneal WBC >168k predominately Neutrophilic. Called [facility] again for transfer and patient was accepted by Attending, Dr. Bhardwaj. Patient gave consent and will be transferred to [facility] for further monitoring and management. Family at bedside and are aware. Date of Admission:05/31/18 Date of Discharge: 06/21/18 Minutes to complete discharge: 45 Discharge Summary Reason For Visit: CHEST PAIN Current Active Problems Abdominal pain (Acute) Ascites (Acute) CAD (coronary artery disease) (Acute) CHF (congestive heart failure) (Acute) Chest pain (Acute) ESRD (end stage renal disease) (Acute) Hypotension (Acute) Hypothyroid (Acute) Ischemic colitis (Acute) S/P partial colectomy (Acute) S/P small bowel resection (Acute) SBP (spontaneous bacterial peritonitis) (Acute) Supratherapeutic INR (Acute) Condition: Stable - Instructions Diet, Activity, Other Instructions: -You were seen here for chest pain and shortness of breath. You were started on anti anxiety medication with relief of symptoms. However, your abdomen was distended and CT revealed a collection of fluid in the abdomen. When fluid was collected it was found to be infected and therefore started you on antibiotics. You might need to have another abdominal procedure to further evaluate. -You will be transferred to [facility] for tertiary care. You were accepted by the surgical team there who will further evaluate you. -We will resume all medications you are currently on at the hospital. Referrals: Flakito Cintron MD [Primary Care Provider] - Disposition: TRANSFER ACUTE CARE/OTHER HOSP - Home Medications Comprehensive Discharge Medication List: Ambulatory Orders Amiodarone HCl 1 tab PO DAILY 03/17/18 Levothyroxine [Synthroid -] 1 tab PO DAILY 03/17/18 Pravastatin Sodium [Pravachol -] 1 tab PO DAILY 03/17/18 Acetaminophen [Tylenol] 650 mg PO DAILY PRN 05/31/18 Calcium Carbonate [Calcium] 500 mg PO AC 05/31/18 Citalopram Hydrobromide [Citalopram HBr] 20 mg PO DAILY 05/31/18 Cyanocobalamin [Vitamin B12 -] 100 mcg PO DAILY 05/31/18 Folic Acid - 1 mg PO DAILY 05/31/18 Melatonin/Pyridoxine HCl (B6) [Melatonin Tr 10 mg Tablet] 1 each PO HS 05/31/18 Midodrine HCl [Proamatine -] 5 mg PO TID 05/31/18 Vit B Comp No.3/Folic/C/Biotin [Krystina-Zane Rx Tablet] 1 each PO DAILY 05/31/18 Acetaminophen [Tylenol .Regular Strength -] 650 mg PO Q4H PRN tablet 06/15/18 Buspirone HCl [Buspar -] 10 mg PO TID tablet 06/15/18 Collagenase Clostridium Hist. [Santyl -] 1 applic TP DAILY tube 06/15/18 Cyclobenzaprine HCl 2.5 mg PO Q12H PRN tablet 06/15/18 Lidocaine 5% Patch [Lidoderm -] 1 patch TP DAILY patch 06/15/18 Lidocaine Patch Removal [Lidoderm Patch Removal] 1 each MC DAILY@2200 each Piperacillin/Tazob 2.25 gm [Zosyn -] 2.25 gm IVPB Q8H-IV vial 06/15/18 Ranitidine [Zantac -] 150 mg PO BID tablet 06/15/18 Heparin - 1,000 unit IVPUSH PRN PRN vial 06/21/18 Heparin - 5,000 unit IVPUSH PRN PRN vial 06/21/18 Heparin - 25,000 unit IV TITR vial 06/21/18 This patient is new to me today: No Emergency Visit: Yes ED Registration Date: 05/31/18 Care time: The patient presented to the Emergency Department on the above date and was hospitalized for further evaluation of their emergent condition. Critical Care patient: No - Discharge Referral Referred to [facility] No
[2018-06-21] MEDS: COLLAGENASE CLOSTRIDIUM HIST. 30 GRAMS TUBE TP SCH (17:42)
[2018-06-21] MEDS ORDERED: ACETAMINOPHEN 500 MG TABLET (FP) PO ONE (19:12)
[2018-06-21] MEDS ORDERED: ACETAMINOPHEN 1000 MG/100 ML VIAL (NON FORMULARY) IVPB ONE (21:45)
[2018-06-21] MEDS: LIDOCAINE PATCH REMOVAL MC SCH (23:30)
[2018-06-22] MEDS ORDERED: PIPERACILLIN/TAZOBACTAM 2.25 GM VIAL IVPB ONE ×3 (00:44→18:45)
[2018-06-22] MEDS ORDERED: DEXTROSE 5%-WATER - 50 ML IVPB ONE ×3 (00:45→18:45)
[2018-06-22] MEDS: PIPERACILLIN/TAZOB 2.25 GM 2.25 GM in DEXTROSE 5%-WATER - 50 ML IVPB SCH ×3 (02:15→18:47)
[2018-06-22] MEDS: BANATROL PLUS POWDER PACKET PO SCH ×3 (06:49→21:10)
[2018-06-22] MEDS: CALCIUM (OYSTER SHELL) 500 MG TABLET (FP) PO SCH ×3 (06:51→17:01)
[2018-06-22] MEDS: busPIRone HCL 10 MG TABLET (FP) PO SCH ×3 (06:51→21:12)
[2018-06-22] MEDS: LEVOTHYROXINE NA 125 MCG TABLET (FP) PO SCH (06:51)
[2018-06-22 08:16] LABS: ALBUMIN 2.2 g/dl (3.4-5.0); ALK PHOS 222 U/L (45-117); ANION GAP 9 MMOL/L (8-16); BILIRUBIN,TOTAL 0.7 mg/dL (0.2-1); BLOOD UREA NITROGEN 22 mg/dL (7-18); CALCIUM 8.4 mg/dL (8.5-10.1); CHLORIDE 101 mmol/L (98-107); CO2 30 mmol/L (21-32); CREATININE 3.6 mg/dL (0.55-1.3); GLUCOSE,RANDOM 69 mg/dL (74-106); MAGNESIUM 1.9 mg/dL (1.8-2.4); PHOSPHOROUS 1.5 mg/dL (2.5-4.9); POTASSIUM 4.2 mmol/L (3.5-5.1); SGOT/AST 20 U/L (15-37); SGPT/ALT 18 U/L (13-61); SODIUM 140 mmol/L (136-145); TOT PROT 4.4 g/dl (6.4-8.2)
[2018-06-22] MEDS ORDERED: PT OWN MED DRAWER 7, Y5N ONE ×2 (09:02→18:47)
[2018-06-22] MEDS: LIDOCAINE 5% TOPICAL PATCH TP SCH (09:31)
[2018-06-22] MEDS: MIDODRINE HCL 2.5 MG TABLET PO SCH ×3 (09:31→18:48)
[2018-06-22] MEDS: RANITIDINE HCL 150 MG TABLET (FP) PO SCH ×2 (09:41→21:12)
[2018-06-22] MEDS: CYCLOBENZAPRINE HCL 5 MG TABLET PO PRN (09:42)
--- NOTE | 2018-06-22 10:44 | PN ---
Progress Note (short form) - Note Progress Note: s: no cp sob palps dizzy o: Vital Signs Period Temp Pulse Resp BP Sys/Emery Pulse Ox Last 24 Hr 97.3 F-98.4 F 57-71 20-20 121-142/54-63 96 Constitutional: Yes: Well Nourished, No Distress, Calm Eyes: Yes: Conjunctiva Clear HENT: Yes: Atraumatic, Normocephalic Neck: Yes: Supple, Trachea Midline Respiratory: Yes: cta bl nl eff Gastrointestinal: Yes: Normal Bowel Sounds, Soft Cardiovascular: Yes: Regular Rate and Rhythm JVD: No Carotid Bruit: No PMI: Non-Displaced Heart Sounds: Yes: S1, S2 Musculoskeletal: No: Back Pain Extremities: No: Cold Edema: trace Peripheral Pulses: 2+ Left Doralis Pedis, 2+ Right Dorsalis Pedis Integumentary: No: Jaundice Neurological: Yes: Alert, Oriented Current Medications Generic Name Dose Route Start Last Admin Trade Name Freq PRN Reason Stop Dose Admin Acetaminophen 650 mg 06/10/18 00:02 06/19/18 21:47 Tylenol - PO 650 mg Q4H PRN Administration HEADACHE Amiodarone HCl 200 mg 06/10/18 10:00 06/21/18 09:59 Cordarone - PO 200 mg DAILY JULIAN Administration Buspirone HCl 10 mg 06/10/18 06:00 06/22/18 06:51 Buspar - PO 10 mg TID JULIAN Administration Calcium Carbonate 500 mg 06/10/18 07:00 06/22/18 06:51 Os-Merlin 500mg - PO 500 mg TIDAC JULIAN Administration Citalopram Hydrobromide 20 mg 06/10/18 10:00 06/21/18 10:00 Celexa - PO 20 mg DAILY JULIAN Administration Collagenase 1 applic 06/10/18 10:00 06/21/18 17:42 Santyl - TP 1 applic DAILY JULIAN Administration Protocol Cyanocobalamin 100 mcg 06/10/18 10:00 06/21/18 10:01 Vitamin B12 - PO 100 mcg DAILY JULIAN Administration Cyclobenzaprine HCl 2.5 mg 06/13/18 12:19 06/22/18 09:42 Cyclobenzaprine Hcl PO 2.5 mg Q12H PRN Administration MUSCLE SPASMS Epoetin Josemanuel 10,000 unit 06/22/18 13:20 Epogen - IVPUSH 06/22/18 13:21 ONCE ONE Folic Acid 1 mg 06/10/18 10:00 06/21/18 10:00 Folic Acid - PO 1 mg DAILY JULIAN Administration Heparin Sodium (Porcine) 1,000 unit 06/19/18 15:14 06/21/18 10:23 Heparin - IVPUSH 1,000 unit PRN PRN Administration Heparin Heparin Sodium (Porcine) 5,000 unit 06/19/18 15:14 06/19/18 22:10 Heparin - IVPUSH 5,000 unit PRN PRN Administration Heparin Piperacillin Sod/Tazobactam 50 mls @ 100 mls/hr 06/15/18 18:00 06/22/18 09:44 Sod 2.25 gm/ Dextrose IVPB 100 mls/hr Q8H-IV JULIAN Administration Heparin Sodium (Porcine) 25, 500 mls @ 20 mls/hr 06/20/18 19:30 06/22/18 08: 15 000 unit/ Sodium Chloride IV 1,100 unit/hr TITR JULIAN 22 mls/hr Titration Protocol 1,000 UNIT/HR Sodium Chloride 250 mls @ 3,000 mls/hr 06/21/18 13:20 Normal Saline - IV 06/22/18 13:20 PRN PRN Hypotension during Dialysis Levothyroxine Sodium 125 mcg 06/10/18 06:00 06/22/18 06:51 Synthroid - PO 125 mcg DAILY@0600 JULIAN Administration Lidocaine 1 patch 06/12/18 10:00 06/22/18 09:31 Lidoderm Patch - TP 1 patch DAILY JULIAN Administration Midodrine 5 mg 06/08/18 10:00 06/22/18 09:31 Proamatine - PO 5 mg TID-MID JULIAN Administration Miscellaneous 1 each 06/12/18 22:00 06/21/18 23:30 Lidoderm Patch Removal MC 1 each DAILY@2200 JULIAN Administration Multivit/Ca Carb/B Cmplx/FA/Prenat 1 tablet 06/10/18 10:00 06/21/18 10:00 Nephro-Zane - PO 1 tablet DAILY JULIAN Administration Ondansetron HCl 4 mg 06/18/18 11:57 06/19/18 02:25 Zofran Injection IVPUSH 4 mg Q4H PRN Administration NAUSEA AND/OR VOMITING Ranitidine HCl 150 mg 06/12/18 10:30 06/22/18 09:41 Zantac - PO 150 mg BID JULIAN Administration CBC, BMP 06/21/18 06:30 06/22/18 06:40 Assessment/Plan echo 05/2018 nl LV size, mildly reduced function EF 45-50%, mild global hypokinesis of LV, nl RV, ppm lead in RV and RA, tr TR EKG: sinus, prolonged QTC, old septal infarct ascites: - etiology unclear, per GI - s/p paracentesis, 168 wbcs noted - awaiting transfer to [facility] acute on chronic systolic HF: - mildly reduced EF on echo - appeared volume up as above on admit with SOB - sx's resolved with HD--volume management per renal - appears euvolemic at present time, apart from ascites which is being managed by GI - not on DELANO/BB due to low BP - pt advised to see us in f/u to maintain general cardio care in this area, as he is currently not being closely followed (for chf and cad) Prolonged QTc - avoid QT prolonging agents - maintain K >4, Mg >2 s/p ICD ([employer]) - outpatient follow up, Dr. Stover - recent device checks unremarkable per patient - cont amiodarone hypotension - continue midodrine - sbp remains 90s at times (>> 80s), but stable - same plan ESRD on HD - per renal CAD, s/p CABG - cont statin - holding aspirin due to elevated INR and anemia mesenteric ischemia - recent dx, s/p surgery during recent admission for hip fx anemia - manage per primary ascites: -GI, ID, surgery following, on abx. manage per primary Right IJ dvt: -plans per vascular, on hep gtt
[2018-06-22 11:06] LABS: MCH 32.3 pg (25.7-33.7); MCHC 32.1 g/dl (32.0-35.9); MEAN CELL VOLUME 100.8 fl (80-96); MEAN PLT VOLUME 7.5 fl (7.5-11.1); PLATELET COUNT 103 K/MM3 (134-434); RBC 3.08 M/mm3 (4.00-5.60); WHITE BLOOD COUNT 7.3 K/mm3 (4.0-10.0)
[2018-06-22] MEDS: ALBUMIN HUMAN 25% 12.5 GM/50 ML VIAL IVPB PRN ×2 (11:15→12:15)
--- NOTE | 2018-06-22 11:16 | PN ---
Teaching Attending Note Name of Resident: Mindy Floyd ATTENDING PHYSICIAN STATEMENT I saw and evaluated the patient. I reviewed the resident's note and discussed the case with the resident. I agree with the resident's findings and plan as documented with exceptions below. SUBJECTIVE: Patient seen and examined. abdominal pain last night, denies currently, no new fevers/chills or back pain. OBJECTIVE: Vital Signs Period Temp Pulse Resp BP Sys/Emery Pulse Ox Last 24 Hr 97.3 F-98.4 F 57-71 20-20 121-142/54-63 96 Intake & Output 06/19/18 06/20/18 06/21/18 06/22/18 23:59 23:59 23:59 23:59 Intake Total 591 853 2774 Balance 545 621 6105 General: sitting in bed in no acute distress Chest: few basilar rales Abdomen;Soft, unchanged distension, midline wound with no new concerns, NT currently, positive bowel sounds Extremities: no edema Home Medications Medication Instructions Recorded Amiodarone HCl 1 tab PO DAILY 03/17/18 Levothyroxine [Synthroid -] 1 tab PO DAILY 03/17/18 Pravastatin Sodium [Pravachol -] 1 tab PO DAILY 03/17/18 Acetaminophen [Tylenol] 650 mg PO DAILY PRN 05/31/18 Calcium Carbonate [Calcium] 500 mg PO AC 05/31/18 Citalopram Hydrobromide 20 mg PO DAILY 05/31/18 [Citalopram HBr] Cyanocobalamin [Vitamin B12 -] 100 mcg PO DAILY 05/31/18 Folic Acid - 1 mg PO DAILY 05/31/18 Melatonin/Pyridoxine HCl (B6) 1 each PO HS 05/31/18 [Melatonin Tr 10 mg Tablet] Midodrine HCl [Proamatine -] 5 mg PO TID 05/31/18 Vit B Comp No.3/Folic/C/Biotin 1 each PO DAILY 05/31/18 [Krystina-Zane Rx Tablet] Acetaminophen [Tylenol .Regular 650 mg PO Q4H PRN tablet 06/15/18 Strength -] Buspirone HCl [Buspar -] 10 mg PO TID tablet 06/15/18 Collagenase Clostridium Hist. 1 applic TP DAILY tube 06/15/18 [Santyl -] Cyclobenzaprine HCl 2.5 mg PO Q12H PRN tablet 06/15/18 Lidocaine 5% Patch [Lidoderm -] 1 patch TP DAILY patch 06/15/18 Lidocaine Patch Removal [Lidoderm 1 each MC DAILY@2200 each 06/15/18 Patch Removal] Piperacillin/Tazob 2.25 gm [Zosyn 2.25 gm IVPB Q8H-IV vial 06/15/18 -] Ranitidine [Zantac -] 150 mg PO BID tablet 06/15/18 Heparin - 1,000 unit IVPUSH PRN PRN vial 06/21/18 Heparin - 5,000 unit IVPUSH PRN PRN vial 06/21/18 Heparin - 25,000 unit IV TITR vial 06/21/18 Active Medications Acetaminophen (Tylenol -) 650 mg PO Q4H PRN PRN Reason: HEADACHE Last Admin: 06/19/18 21:47 Dose: 650 mg Amiodarone HCl (Cordarone -) 200 mg PO DAILY [facility] Last Admin: 06/21/18 09:59 Dose: 200 mg Buspirone HCl (Buspar -) 10 mg PO TID [facility] Last Admin: 06/22/18 06:51 Dose: 10 mg Calcium Carbonate (Os-Merlin 500mg -) 500 mg PO TIDAC [facility] Last Admin: 06/22/18 06:51 Dose: 500 mg Citalopram Hydrobromide (Celexa -) 20 mg PO DAILY [facility] Last Admin: 06/21/18 10:00 Dose: 20 mg Collagenase (Santyl -) 1 applic TP DAILY [facility]; Protocol Last Admin: 06/21/18 17:42 Dose: 1 applic Cyanocobalamin (Vitamin B12 -) 100 mcg PO DAILY [facility] Last Admin: 06/21/18 10:01 Dose: 100 mcg Cyclobenzaprine HCl (Cyclobenzaprine Hcl) 2.5 mg PO Q12H PRN PRN Reason: MUSCLE SPASMS Last Admin: 06/22/18 09:42 Dose: 2.5 mg Epoetin Josemanuel (Epogen -) 10,000 unit IVPUSH ONCE ONE Stop: 06/22/18 13:21 Folic Acid (Folic Acid -) 1 mg PO DAILY [facility] Last Admin: 06/21/18 10:00 Dose: 1 mg Heparin Sodium (Porcine) (Heparin -) 1,000 unit IVPUSH PRN PRN PRN Reason: Heparin Last Admin: 06/21/18 10:23 Dose: 1,000 unit Heparin Sodium (Porcine) (Heparin -) 5,000 unit IVPUSH PRN PRN PRN Reason: Heparin Last Admin: 06/19/18 22:10 Dose: 5,000 unit Piperacillin Sod/Tazobactam (Sod 2.25 gm/ Dextrose) 50 mls @ 100 mls/hr IVPB Q8H-IV [facility] Last Admin: 06/22/18 09:44 Dose: 100 mls/hr Heparin Sodium (Porcine) 25, (000 unit/ Sodium Chloride) 500 mls @ 20 mls/hr IV TITR [facility]; Protocol Last Titration: 06/22/18 08:15 Dose: 1,100 unit/hr, 22 mls/hr Sodium Chloride (Normal Saline -) 250 mls @ 3,000 mls/hr IV PRN PRN PRN Reason: Hypotension during Dialysis Stop: 06/22/18 13:20 Levothyroxine Sodium (Synthroid -) 125 mcg PO DAILY@0600 [facility] Last Admin: 06/22/18 06:51 Dose: 125 mcg Lidocaine (Lidoderm Patch -) 1 patch TP DAILY [facility] Last Admin: 06/22/18 09:31 Dose: 1 patch Midodrine (Proamatine -) 5 mg PO TID-MID [facility] Last Admin: 06/22/18 09:31 Dose: 5 mg Miscellaneous (Lidoderm Patch Removal) 1 each MC DAILY@2200 [facility] Last Admin: 06/21/18 23:30 Dose: 1 each Multivit/Ca Carb/B Cmplx/FA/Prenat (Nephro-Zane -) 1 tablet PO DAILY [facility] Last Admin: 06/21/18 10:00 Dose: 1 tablet Ondansetron HCl (Zofran Injection) 4 mg IVPUSH Q4H PRN PRN Reason: NAUSEA AND/OR VOMITING Last Admin: 06/19/18 02:25 Dose: 4 mg Ranitidine HCl (Zantac -) 150 mg PO BID [facility] Last Admin: 06/22/18 09:41 Dose: 150 mg Laboratory Results - last 24 hr 06/20/18 06/20/18 06/21/18 12:00 12:00 17:00 PTT (Actin FS) 56.8 H Sodium Potassium Chloride Carbon Dioxide Anion Gap BUN Creatinine Creat Clearance w eGFR Random Glucose Calcium Phosphorus Magnesium Total Bilirubin AST ALT Alkaline Phosphatase Total Protein Albumin Fluid Glucose 17 Fluid Albumin 2.0 Body Fluid LDH Source 9668 Fluid Amylase 40 Fluid Triglycerides 158 CSF Total Protein No Result Required. 06/22/18 06/22/18 06:40 06:40 PTT (Actin FS) 63.6 H Sodium 140 Potassium 4.2 Chloride 101 Carbon Dioxide 30 Anion Gap 9 BUN 22 H Creatinine 3.6 H Creat Clearance w eGFR 16.95 Random Glucose 69 L Calcium 8.4 L Phosphorus 1.5 L Magnesium 1.9 Total Bilirubin 0.7 AST 20 ALT 18 Alkaline Phosphatase 222 H Total Protein 4.4 L Albumin 2.2 L Fluid Glucose Fluid Albumin Body Fluid LDH Source Fluid Amylase Fluid Triglycerides CSF Total Protein Microbiology 06/20/18 12:00 Peritoneal Fluid Gram Stain - Final 06/20/18 12:00 Peritoneal Fluid Body Fluid Culture - Final NO GROWTH OF AEROBIC ORGANISMS AFTER 48 HOURS INCUBATION 06/20/18 12:00 Peritoneal Fluid Anaerobic Culture - Final NO ANAEROBES WERE ISOLATED 06/20/18 12:00 Peritoneal Fluid AFB Smear Concentration - Preliminary 06/20/18 12:00 Peritoneal Fluid Mycobacterial Culture - Preliminary 06/20/18 12:00 Peritoneal Fluid RODRIGUEZ Preparation - Preliminary 06/20/18 12:00 Peritoneal Fluid Fungal Culture - Preliminary 06/07/18 15:10 Paracentesis AFB Smear Concentration - Final 06/07/18 15:10 Paracentesis Mycobacterial Culture - Preliminary 06/07/18 15:10 Paracentesis Gram Stain - Final 06/07/18 15:10 Paracentesis Body Fluid Culture - Final NO GROWTH OF AEROBIC ORGANISMS AFTER 48 HOURS INCUBATION 06/07/18 15:10 Paracentesis Anaerobic Culture - Final NO ANAEROBES WERE ISOLATED 06/08/18 09:20 Stool Salmonella/Shigella Culture - Final NO GROWTH OF SALMONELLA OR SHIGELLA SPECIES OBTAINED 06/08/18 09:20 Stool Campylobacter Culture - Final NO GROWTH OF CAMPYLOBACTER SPECIES OBTAINED 06/08/18 09:20 Stool Yersinia Culture - Final NO GROWTH OF YERSINIA SPECIES OBTAINED 06/08/18 09:20 Stool Vibrio Culture - Final NO GROWTH OF VIBRIO SPECIES OBTAINED 06/08/18 09:20 Stool Escherichia coli 0157 Culture - Final NO GROWTH OF E COLI 0157 OBTAINED 06/08/18 01:31 Stool Gram Stain - Final 06/08/18 01:31 Stool Clostridium difficile Antigen (FLORINA) - Final 01/17/19 01:31 Stool Clostridium difficile Toxin Assay - Final 06/07/18 15:10 Paracentesis RODRIGUEZ Preparation - Preliminary 06/07/18 15:10 Paracentesis Fungal Culture - Preliminary 06/01/18 13:40 Blood - Peripheral Venous Blood Culture - Final NO GROWTH AFTER 5 DAYS INCUBATION 06/01/18 13:50 Blood - Peripheral Venous Blood Culture - Final NO GROWTH AFTER 5 DAYS INCUBATION ASSESSMENT AND PLAN: 67 yom with PMhx of CAD s/p CABG 2005, chronic systolic HF s/p ICD ([employer]), COPD on chronic O2 2-3L, ESRD on HD, hypotension on midodrine, HTN , HLD, admitted to [facility] for hip fracture s/p ORIF, course complicated by mesentric ischemia, s/p right hemicolectomy/jejunal/ileal resection, readmitted on 05/23/2018 with shortness of breath/nausea with HD, found with ascitis s/p paracentesis wiht 700 seropurulent fluid, reported cultures with Kleb Oxytoca, s /p ceftriaxone, d/dena on ?Cipro/flagyl x 7 days readmitted with chest pain/ dyspnea/anxiety during HD, found with ascitis, elevated INR . 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 SVC thrombus -CAD s/p CABG -ICD s/p reported h/o shocks on Amiodarone -COPD on 2-3 L home oxygen -Hypotension on Midodrine (off coreg/ACEi) -Hypothyroidism -Hypoalbuminemia -Anemia, suspect multifactorial s/p 1 unit PRBC 06/06 -Low back pain, musculoskeletal, resolved Plan: repeat paracentesis fluid studies noted, WBC higher. Follow up cultures. Zosyn per ID. Discussed with Dr. Crum and Dr. Kraus Patient and daughter agreable to transfer to tertiary care center. Patient accepted at [facility], awaiting bed. Heparin drip Lidocaine patch/flexeril prn. Cardiology input noted. Amiodarone/Midodrine Citalopram/buspirone GIPPX Raniditine Dispo to [facility] awaiting bed Plan discussed with patient in detail, all questions answered.
[2018-06-22] MEDS ORDERED: SODIUM CHLORIDE 250 ML IV PRN (11:41)
[2018-06-22 12:04] LABS: ANION GAP 11 MMOL/L (8-16); BLOOD UREA NITROGEN 23 mg/dL (7-18); CALCIUM 8.4 mg/dL (8.5-10.1); CHLORIDE 102 mmol/L (98-107); CO2 28 mmol/L (21-32); CREATININE 3.7 mg/dL (0.55-1.3); GLUCOSE,RANDOM 87 mg/dL (74-106); POTASSIUM 3.8 mmol/L (3.5-5.1); SODIUM 140 mmol/L (136-145)
[2018-06-22] MEDS ORDERED: EPOETIN ALFA 10,000 UNIT/1 ML VIAL IVPUSH ONE (12:30)
--- NOTE | 2018-06-22 13:17 | PN ---
Progress Note, Physician History of Present Illness: stable awaiting transfer no complaints - Current Medication List Current Medications: Active Medications Acetaminophen (Tylenol -) 650 mg PO Q4H PRN PRN Reason: HEADACHE Last Admin: 06/19/18 21:47 Dose: 650 mg Albumin Human (Albumin Human 25%) 12.5 gm IVPB Q30M PRN PRN Reason: LOW BLOOD PRSSUR Last Admin: 06/22/18 12:15 Dose: 12.5 gm Amiodarone HCl (Cordarone -) 200 mg PO DAILY [facility] Last Admin: 06/21/18 09:59 Dose: 200 mg Buspirone HCl (Buspar -) 10 mg PO TID [facility] Last Admin: 06/22/18 06:51 Dose: 10 mg Calcium Carbonate (Os-Merlin 500mg -) 500 mg PO TIDAC [facility] Last Admin: 06/22/18 06:51 Dose: 500 mg Citalopram Hydrobromide (Celexa -) 20 mg PO DAILY [facility] Last Admin: 06/21/18 10:00 Dose: 20 mg Collagenase (Santyl -) 1 applic TP DAILY [facility]; Protocol Last Admin: 06/21/18 17:42 Dose: 1 applic Cyanocobalamin (Vitamin B12 -) 100 mcg PO DAILY [facility] Last Admin: 06/21/18 10:01 Dose: 100 mcg Cyclobenzaprine HCl (Cyclobenzaprine Hcl) 2.5 mg PO Q12H PRN PRN Reason: MUSCLE SPASMS Last Admin: 06/22/18 09:42 Dose: 2.5 mg Folic Acid (Folic Acid -) 1 mg PO DAILY [facility] Last Admin: 06/21/18 10:00 Dose: 1 mg Heparin Sodium (Porcine) (Heparin -) 1,000 unit IVPUSH PRN PRN PRN Reason: Heparin Last Admin: 06/21/18 10:23 Dose: 1,000 unit Heparin Sodium (Porcine) (Heparin -) 5,000 unit IVPUSH PRN PRN PRN Reason: Heparin Last Admin: 06/19/18 22:10 Dose: 5,000 unit Piperacillin Sod/Tazobactam (Sod 2.25 gm/ Dextrose) 50 mls @ 100 mls/hr IVPB Q8H-IV [facility] Last Admin: 06/22/18 09:44 Dose: 100 mls/hr Heparin Sodium (Porcine) 25, (000 unit/ Sodium Chloride) 500 mls @ 20 mls/hr IV TITR [facility]; Protocol Last Titration: 06/22/18 08:15 Dose: 1,100 unit/hr, 22 mls/hr Levothyroxine Sodium (Synthroid -) 125 mcg PO DAILY@0600 [facility] Last Admin: 06/22/18 06:51 Dose: 125 mcg Lidocaine (Lidoderm Patch -) 1 patch TP DAILY [facility] Last Admin: 06/22/18 09:31 Dose: 1 patch Midodrine (Proamatine -) 5 mg PO TID-MID [facility] Last Admin: 06/22/18 09:31 Dose: 5 mg Miscellaneous (Lidoderm Patch Removal) 1 each MC DAILY@2200 [facility] Last Admin: 06/21/18 23:30 Dose: 1 each Multivit/Ca Carb/B Cmplx/FA/Prenat (Nephro-Zane -) 1 tablet PO DAILY [facility] Last Admin: 06/21/18 10:00 Dose: 1 tablet Ondansetron HCl (Zofran Injection) 4 mg IVPUSH Q4H PRN PRN Reason: NAUSEA AND/OR VOMITING Last Admin: 06/19/18 02:25 Dose: 4 mg Ranitidine HCl (Zantac -) 150 mg PO BID [facility] Last Admin: 06/22/18 09:41 Dose: 150 mg - Objective Vital Signs: Vital Signs Temperature 96 F L 06/22/18 10:35 Pulse Rate 55 L 06/22/18 12:40 Respiratory Rate 18 06/22/18 12:40 Blood Pressure 105/52 L 06/22/18 12:40 O2 Sat by Pulse Oximetry (%) 97 06/22/18 09:00 Constitutional: Yes: No Distress, Calm Cardiovascular: Yes: S1, S2 Respiratory: Yes: Regular, CTA Bilaterally Gastrointestinal: Yes: Soft, Ascites, Distention Musculoskeletal: Yes: WNL Extremities: Yes: WNL Neurological: Yes: Alert, Oriented Psychiatric: Yes: Alert, Oriented Labs: CBC, BMP 06/22/18 10:40 06/22/18 10:40 INR, PTT INR 1.23 (0.83-1.09) H 06/20/18 07:00 Assessment/Plan ASSESSMENT AND PLAN: (1) Hypotension Code(s): I95.9 - HYPOTENSION, UNSPECIFIED (2) ESRD (end stage renal disease) Code(s): N18.6 - END STAGE RENAL DISEASE (3) Ascites Code(s): R18.8 - OTHER ASCITES (4) Supratherapeutic INR Code(s): R79.1 - ABNORMAL COAGULATION PROFILE (5) CAD (coronary artery disease) Code(s): I25.10 - ATHSCL HEART DISEASE OF [place] CORONARY ARTERY W/O ANG PCTRS (6) CHF (congestive heart failure) Code(s): I50.9 - HEART FAILURE, UNSPECIFIED Qualifiers: Heart failure chronicity: acute on chronic (7) Hypothyroid Code(s): E03.9 - HYPOTHYROIDISM, UNSPECIFIED (8) SBP (secondary bacterial peritonitis) Code(s): K65.2 - SPONTANEOUS BACTERIAL PERITONITIS (9) Anxiety -consult psychiatry 10 b/l heel ulcer plan continue abx awaiting transfer rest as per the team close watch
[2018-06-22] MEDS: CITALOPRAM HYDROBROMIDE 20 MG TABLET (FP) PO SCH (14:46)
[2018-06-22] MEDS: AMIODARONE HCL 200 MG TABLET (FP) PO SCH (14:46)
[2018-06-22] MEDS: VITAMIN B COMP W-C 1 EA TABLET PO SCH (14:46)
[2018-06-22] MEDS: FOLIC ACID 1 MG TABLET (FP) PO SCH (14:46)
[2018-06-22] MEDS: CYANOCOBALAMIN (VITAMIN B-12) 100 MCG TABLET PO SCH (14:48)
--- NOTE | 2018-06-22 15:04 | PN ---
Progress Note, Physician History of Present Illness: Pt seen and examined at bedside. He tolerated HD. He denies shortness of breath. - Current Medication List Current Medications: Active Medications Acetaminophen (Tylenol -) 650 mg PO Q4H PRN PRN Reason: HEADACHE Last Admin: 06/19/18 21:47 Dose: 650 mg Albumin Human (Albumin Human 25%) 12.5 gm IVPB Q30M PRN PRN Reason: LOW BLOOD PRSSUR Last Admin: 06/22/18 12:15 Dose: 12.5 gm Amiodarone HCl (Cordarone -) 200 mg PO DAILY [facility] Last Admin: 06/22/18 14:46 Dose: 200 mg Buspirone HCl (Buspar -) 10 mg PO TID [facility] Last Admin: 06/22/18 14:47 Dose: 10 mg Calcium Carbonate (Os-Merlin 500mg -) 500 mg PO TIDAC [facility] Last Admin: 06/22/18 14:46 Dose: 500 mg Citalopram Hydrobromide (Celexa -) 20 mg PO DAILY [facility] Last Admin: 06/22/18 14:46 Dose: 20 mg Collagenase (Santyl -) 1 applic TP DAILY [facility]; Protocol Last Admin: 06/21/18 17:42 Dose: 1 applic Cyanocobalamin (Vitamin B12 -) 100 mcg PO DAILY [facility] Last Admin: 06/22/18 14:48 Dose: 100 mcg Cyclobenzaprine HCl (Cyclobenzaprine Hcl) 2.5 mg PO Q12H PRN PRN Reason: MUSCLE SPASMS Last Admin: 06/22/18 09:42 Dose: 2.5 mg Folic Acid (Folic Acid -) 1 mg PO DAILY [facility] Last Admin: 06/22/18 14:46 Dose: 1 mg Heparin Sodium (Porcine) (Heparin -) 1,000 unit IVPUSH PRN PRN PRN Reason: Heparin Last Admin: 06/21/18 10:23 Dose: 1,000 unit Heparin Sodium (Porcine) (Heparin -) 5,000 unit IVPUSH PRN PRN PRN Reason: Heparin Last Admin: 06/19/18 22:10 Dose: 5,000 unit Piperacillin Sod/Tazobactam (Sod 2.25 gm/ Dextrose) 50 mls @ 100 mls/hr IVPB Q8H-IV [facility] Last Admin: 06/22/18 09:44 Dose: 100 mls/hr Heparin Sodium (Porcine) 25, (000 unit/ Sodium Chloride) 500 mls @ 20 mls/hr IV TITR [facility]; Protocol Last Titration: 06/22/18 08:15 Dose: 1,100 unit/hr, 22 mls/hr Levothyroxine Sodium (Synthroid -) 125 mcg PO DAILY@0600 [facility] Last Admin: 06/22/18 06:51 Dose: 125 mcg Lidocaine (Lidoderm Patch -) 1 patch TP DAILY [facility] Last Admin: 06/22/18 09:31 Dose: 1 patch Midodrine (Proamatine -) 5 mg PO TID-MID [facility] Last Admin: 06/22/18 14:47 Dose: 5 mg Miscellaneous (Lidoderm Patch Removal) 1 each MC DAILY@2200 [facility] Last Admin: 06/21/18 23:30 Dose: 1 each Multivit/Ca Carb/B Cmplx/FA/Prenat (Nephro-Zane -) 1 tablet PO DAILY [facility] Last Admin: 06/22/18 14:46 Dose: 1 tablet Ondansetron HCl (Zofran Injection) 4 mg IVPUSH Q4H PRN PRN Reason: NAUSEA AND/OR VOMITING Last Admin: 06/19/18 02:25 Dose: 4 mg Ranitidine HCl (Zantac -) 150 mg PO BID [facility] Last Admin: 06/22/18 09:41 Dose: 150 mg - Objective Vital Signs: Vital Signs Temperature 96 F L 06/22/18 10:35 Pulse Rate 69 06/22/18 13:10 Respiratory Rate 18 06/22/18 13:10 Blood Pressure 103/54 L 06/22/18 13:10 O2 Sat by Pulse Oximetry (%) 97 06/22/18 09:00 Constitutional: Yes: Calm Eyes: Yes: Conjunctiva Clear HENT: Yes: Atraumatic Cardiovascular: Yes: S1, S2 Respiratory: Yes: CTA Bilaterally, On Nasal O2 Gastrointestinal: Yes: Soft Genitourinary: Yes: WNL Musculoskeletal: Yes: WNL Edema: No Neurological: Yes: Oriented Psychiatric: Yes: Oriented Labs: CBC, BMP 06/22/18 10:40 06/22/18 10:40 INR, PTT INR 1.23 (0.83-1.09) H 06/20/18 07:00 Problem List - Problems (1) ESRD (end stage renal disease) Code(s): N18.6 - END STAGE RENAL DISEASE Assessment/Plan Current Medications Generic Name Dose Route Start Last Admin Trade Name Freq PRN Reason Stop Dose Admin Acetaminophen 650 mg 06/10/18 00:02 06/19/18 21:47 Tylenol - PO 650 mg Q4H PRN Administration HEADACHE Albumin Human 12.5 gm 06/22/18 11:44 06/22/18 12:15 Albumin Human 25% IVPB 12.5 gm Q30M PRN Administration LOW BLOOD PRSSUR Amiodarone HCl 200 mg 06/10/18 10:00 06/22/18 14:46 Cordarone - PO 200 mg DAILY [facility] Administration Buspirone HCl 10 mg 06/10/18 06:00 06/22/18 14:47 Buspar - PO 10 mg TID [facility] Administration Calcium Carbonate 500 mg 06/10/18 07:00 06/22/18 14:46 Os-Merlin 500mg - PO 500 mg TIDAC [facility] Administration Citalopram Hydrobromide 20 mg 06/10/18 10:00 06/22/18 14:46 Celexa - PO 20 mg DAILY [facility] Administration Collagenase 1 applic 06/10/18 10:00 06/21/18 17:42 Santyl - TP 1 applic DAILY [facility] Administration Protocol Cyanocobalamin 100 mcg 06/10/18 10:00 06/22/18 14:48 Vitamin B12 - PO 100 mcg DAILY [facility] Administration Cyclobenzaprine HCl 2.5 mg 06/13/18 12:19 06/22/18 09:42 Cyclobenzaprine Hcl PO 2.5 mg Q12H PRN Administration MUSCLE SPASMS Folic Acid 1 mg 06/10/18 10:00 06/22/18 14:46 Folic Acid - PO 1 mg DAILY [facility] Administration Heparin Sodium (Porcine) 1,000 unit 06/19/18 15:14 06/21/18 10:23 Heparin - IVPUSH 1,000 unit PRN PRN Administration Heparin Heparin Sodium (Porcine) 5,000 unit 06/19/18 15:14 06/19/18 22:10 Heparin - IVPUSH 5,000 unit PRN PRN Administration Heparin Piperacillin Sod/Tazobactam 50 mls @ 100 mls/hr 06/15/18 18:00 06/22/18 09:44 Sod 2.25 gm/ Dextrose IVPB 100 mls/hr Q8H-IV JULIAN Administration Heparin Sodium (Porcine) 25, 500 mls @ 20 mls/hr 06/20/18 19:30 06/22/18 08: 15 000 unit/ Sodium Chloride IV 1,100 unit/hr TITR [facility]UL[facility] 22 mls/hr Titration Protocol 1,000 UNIT/HR Levothyroxine Sodium 125 mcg 06/10/18 06:00 06/22/18 06:51 Synthroid - PO 125 mcg DAILY@0600 [facility] Administration Lidocaine 1 patch 06/12/18 10:00 06/22/18 09:31 Lidoderm Patch - TP 1 patch DAILY [facility] Administration Midodrine 5 mg 06/08/18 10:00 06/22/18 14:47 Proamatine - PO 5 mg TID-MID [facility] Administration Miscellaneous 1 each 06/12/18 22:00 06/21/18 23:30 Lidoderm Patch Removal MC 1 each DAILY@2200 [facility] Administration Multivit/Ca Carb/B Cmplx/FA/Prenat 1 tablet 06/10/18 10:00 06/22/18 14:46 Nephro-Zane - PO 1 tablet DAILY [facility] Administration Ondansetron HCl 4 mg 06/18/18 11:57 06/19/18 02:25 Zofran Injection IVPUSH 4 mg Q4H PRN Administration NAUSEA AND/OR VOMITING Ranitidine HCl 150 mg 06/12/18 10:30 06/22/18 09:41 Zantac - PO 150 mg BID [facility] Administration Impression 1. ESRD 2. CAD 3. CABG 4. COPD 5. CHF 6. SBP 7. DVT 8. hx mesinteric ischemia 9. hypothyroidism 10. gout 11. hld 12. pleural effusion 13. anemia 14. abd pain 15. ascites Plan - pt tolerated HD today - volume status is stable - renal diet - pt is being transferred to tertiary care center - discussed with family - will need fistula once medically stable - will follow Dr Jones
--- NOTE | 2018-06-22 17:40 | PN ---
GI Progress Note Subjective: No acute events Sitting up in bed. Denies abdominal pain Tolerated PO today - Objective Vital Signs: Vital Signs Temperature 97.6 F 06/22/18 15:11 Pulse Rate 81 06/22/18 15:11 Respiratory Rate 17 06/22/18 15:11 Blood Pressure 97/67 06/22/18 15:11 O2 Sat by Pulse Oximetry (%) 97 06/22/18 09:00 Constitutional: Calm Eyes: No: Sclera Icterus Cardiovascular: Yes: Regular Rate and Rhythm Respiratory: Yes: Diminished (at bases bilaterally) Gastrointestinal Inspection: Yes: Distention (softly protuberant) ...Auscultate: Yes: Normoactive Bowel Sounds ...Palpate: No: Tenderness Edema: No (No LE edema) Neurological: Yes: Alert Labs: CBC, BMP 06/22/18 10:40 06/22/18 10:40 INR, PTT INR 1.23 (0.83-1.09) H 06/20/18 07:00 Problem List - Problems (1) Ascites Assessment/Plan: 168K in peritoneal fluid despite continued IV Abx therapy. Hard to interpret peritoneal fluid data. My thought is he had preexisting liver disease ( macrocytosis noted on CBC as well) that decompensated after his recent surgeries. The fluid then became infected from possible bowel leak. Concern is that WBC continues to rise in the fluid itself despite IV Abx. No clear end goal to abx therapy at this time. Agree with transfer to tertiary care center given potential need for surgical exploration. Code(s): R18.8 - OTHER ASCITES Qualifiers: Ascites type: other type Qualified Code(s): R18.8 - Other ascites
[2018-06-22] MEDS ORDERED: ACETAMINOPHEN 1000 MG/100 ML VIAL (NON FORMULARY) IVPB ONE (20:15)
[2018-06-22] MEDS: HEPARIN - 25,000 UNIT in SODIUM CHLORIDE 495 ML IV SCH (20:47)
[2018-06-22] MEDS: LIDOCAINE PATCH REMOVAL MC SCH (21:12)
[2018-06-22] MEDS: COLLAGENASE CLOSTRIDIUM HIST. 30 GRAMS TUBE TP SCH ×2 (21:12→23:38)
[2018-06-23] MEDS ORDERED: PIPERACILLIN/TAZOBACTAM 2.25 GM VIAL IVPB ONE ×3 (01:13→18:17)
[2018-06-23] MEDS ORDERED: DEXTROSE 5%-WATER - 50 ML IVPB ONE ×3 (01:14→18:17)
[2018-06-23] MEDS: PIPERACILLIN/TAZOB 2.25 GM 2.25 GM in DEXTROSE 5%-WATER - 50 ML IVPB SCH ×3 (01:51→18:19)
[2018-06-23] MEDS: CYCLOBENZAPRINE HCL 5 MG TABLET PO PRN ×2 (01:54→10:06)
[2018-06-23] MEDS: BANATROL PLUS POWDER PACKET PO SCH ×3 (05:56→21:05)
[2018-06-23] MEDS: LEVOTHYROXINE NA 125 MCG TABLET (FP) PO SCH (06:24)
[2018-06-23] MEDS: busPIRone HCL 10 MG TABLET (FP) PO SCH ×3 (06:24→21:11)
[2018-06-23] MEDS: CALCIUM (OYSTER SHELL) 500 MG TABLET (FP) PO SCH ×3 (06:25→18:19)
[2018-06-23 07:51] LABS: HEMATOCRIT 32.8 % (35.4-49); HEMOGLOBIN 10.4 GM/dL (11.7-16.9); MCH 32.1 pg (25.7-33.7); MCHC 31.6 g/dl (32.0-35.9); MEAN CELL VOLUME 101.6 fl (80-96); MEAN PLT VOLUME 7.7 fl (7.5-11.1); PLATELET COUNT 96 K/MM3 (134-434); RBC 3.23 M/mm3 (4.00-5.60); RDW 28.2 % (11.9-15.9); WHITE BLOOD COUNT 7.7 K/mm3 (4.0-10.0)
[2018-06-23 08:12] LABS: ANION GAP 8 MMOL/L (8-16); BLOOD UREA NITROGEN 15 mg/dL (7-18); CALCIUM 8.1 mg/dL (8.5-10.1); CHLORIDE 100 mmol/L (98-107); CO2 30 mmol/L (21-32); CREATININE 2.8 mg/dL (0.55-1.3); GLUCOSE,RANDOM 76 mg/dL (74-106); POTASSIUM 3.6 mmol/L (3.5-5.1); SODIUM 138 mmol/L (136-145)
[2018-06-23] MEDS ORDERED: PT OWN MED DRAWER 7, Y5N ONE (09:52)
[2018-06-23] MEDS: RANITIDINE HCL 150 MG TABLET (FP) PO SCH ×2 (09:57→21:11)
[2018-06-23] MEDS: FOLIC ACID 1 MG TABLET (FP) PO SCH (09:57)
[2018-06-23] MEDS: LIDOCAINE 5% TOPICAL PATCH TP SCH (09:58)
[2018-06-23] MEDS: MIDODRINE HCL 2.5 MG TABLET PO SCH ×4 (09:58→20:14)
[2018-06-23] MEDS: CITALOPRAM HYDROBROMIDE 20 MG TABLET (FP) PO SCH (09:58)
[2018-06-23] MEDS: AMIODARONE HCL 200 MG TABLET (FP) PO SCH (09:58)
[2018-06-23] MEDS: VITAMIN B COMP W-C 1 EA TABLET PO SCH (09:58)
[2018-06-23] MEDS: CYANOCOBALAMIN (VITAMIN B-12) 100 MCG TABLET PO SCH (10:06)
[2018-06-23] MEDS: ACETAMINOPHEN 325 MG TABLET (FP) PO PRN (10:11)
[2018-06-23] MEDS: HEPARIN - 25,000 UNIT in SODIUM CHLORIDE 495 ML IV SCH ×2 (11:19→21:30)
--- NOTE | 2018-06-23 12:34 | PN ---
Teaching Attending Note Name of Resident: Mindy Floyd ATTENDING PHYSICIAN STATEMENT I saw and evaluated the patient. I reviewed the resident's note and discussed the case with the resident. I agree with the resident's findings and plan as documented with exceptions below. SUBJECTIVE: Patient seen and examined. No new abdominal or back pain, tolerating diet well. OBJECTIVE: Vital Signs Period Temp Pulse Resp BP Sys/Emery Pulse Ox Last 24 Hr 97 F-98.0 F 55-81 17-20 97-142/47-82 97 Intake & Output 06/20/18 06/21/18 06/22/18 06/23/18 23:59 23:59 23:59 23:59 Intake Total 818 1597 380 Balance 818 1597 380 Weight 168 lb General: sitting in bed in no acute distress Chest: few basilar rales Abdomen:Soft, unchanged abdominal distension, healed midline surgical scar, non tender throughout, no voluntary or involuntary guarding or rigidity, positive bowel sounds Extremities: no edema Active Medications Acetaminophen (Tylenol -) 650 mg PO Q4H PRN PRN Reason: HEADACHE Last Admin: 06/23/18 10:11 Dose: 650 mg Albumin Human (Albumin Human 25%) 12.5 gm IVPB Q30M PRN PRN Reason: LOW BLOOD PRSSUR Last Admin: 06/22/18 12:15 Dose: 12.5 gm Amiodarone HCl (Cordarone -) 200 mg PO DAILY [facility] Last Admin: 06/23/18 09:58 Dose: 200 mg Buspirone HCl (Buspar -) 10 mg PO TID [facility] Last Admin: 06/23/18 06:24 Dose: 10 mg Calcium Carbonate (Os-Merlin 500mg -) 500 mg PO TIDAC [facility] Last Admin: 06/23/18 12:14 Dose: 500 mg Citalopram Hydrobromide (Celexa -) 20 mg PO DAILY [facility] Last Admin: 06/23/18 09:58 Dose: 20 mg Collagenase (Santyl -) 1 applic TP DAILY [facility]; Protocol Last Admin: 06/22/18 21:12 Dose: 1 applic Cyanocobalamin (Vitamin B12 -) 100 mcg PO DAILY [facility] Last Admin: 06/23/18 10:06 Dose: 100 mcg Cyclobenzaprine HCl (Cyclobenzaprine Hcl) 2.5 mg PO Q12H PRN PRN Reason: MUSCLE SPASMS Last Admin: 06/23/18 10:06 Dose: 2.5 mg Folic Acid (Folic Acid -) 1 mg PO DAILY [facility] Last Admin: 06/23/18 09:57 Dose: 1 mg Heparin Sodium (Porcine) (Heparin -) 1,000 unit IVPUSH PRN PRN PRN Reason: Heparin Last Admin: 06/21/18 10:23 Dose: 1,000 unit Heparin Sodium (Porcine) (Heparin -) 5,000 unit IVPUSH PRN PRN PRN Reason: Heparin Last Admin: 06/19/18 22:10 Dose: 5,000 unit Piperacillin Sod/Tazobactam (Sod 2.25 gm/ Dextrose) 50 mls @ 100 mls/hr IVPB Q8H-IV [facility] Last Admin: 06/23/18 10:07 Dose: 100 mls/hr Heparin Sodium (Porcine) 25, (000 unit/ Sodium Chloride) 500 mls @ 20 mls/hr IV TITR [facility]; Protocol Last Admin: 06/23/18 11:19 Dose: 950 unit/hr, 19 mls/hr Levothyroxine Sodium (Synthroid -) 125 mcg PO DAILY@0600 [facility] Last Admin: 06/23/18 06:24 Dose: 125 mcg Lidocaine (Lidoderm Patch -) 1 patch TP DAILY [facility] Last Admin: 06/23/18 09:58 Dose: 1 patch Midodrine (Proamatine -) 5 mg PO TID-MID [facility] Last Admin: 06/23/18 09:58 Dose: 5 mg Miscellaneous (Lidoderm Patch Removal) 1 each MC DAILY@2200 [facility] Last Admin: 06/22/18 21:12 Dose: 1 each Multivit/Ca Carb/B Cmplx/FA/Prenat (Nephro-Zane -) 1 tablet PO DAILY [facility] Last Admin: 06/23/18 09:58 Dose: 1 tablet Ondansetron HCl (Zofran Injection) 4 mg IVPUSH Q4H PRN PRN Reason: NAUSEA AND/OR VOMITING Last Admin: 06/19/18 02:25 Dose: 4 mg Ranitidine HCl (Zantac -) 150 mg PO BID [facility] Last Admin: 06/23/18 09:57 Dose: 150 mg Laboratory Results - last 24 hr 06/23/18 06/23/18 06/23/18 06:00 06:00 06:00 WBC 7.7 RBC 3.23 L Hgb 10.4 L Hct 32.8 L MCV 101.6 H MCH 32.1 MCHC 31.6 L RDW 28.2 H Plt Count 96 L MPV 7.7 PTT (Actin FS) 103.7 H Sodium 138 Potassium 3.6 Chloride 100 Carbon Dioxide 30 Anion Gap 8 BUN 15 Creatinine 2.8 H Creat Clearance w eGFR 22.65 Random Glucose 76 Calcium 8.1 L Microbiology 06/20/18 12:00 Peritoneal Fluid AFB Smear Concentration - Final 06/20/18 12:00 Peritoneal Fluid Mycobacterial Culture - Preliminary 06/20/18 12:00 Peritoneal Fluid Gram Stain - Final 06/20/18 12:00 Peritoneal Fluid Body Fluid Culture - Final NO GROWTH OF AEROBIC ORGANISMS AFTER 48 HOURS INCUBATION 06/20/18 12:00 Peritoneal Fluid Anaerobic Culture - Final NO ANAEROBES WERE ISOLATED 06/20/18 12:00 Peritoneal Fluid RODRIGUEZ Preparation - Preliminary 06/20/18 12:00 Peritoneal Fluid Fungal Culture - Preliminary 06/07/18 15:10 Paracentesis AFB Smear Concentration - Final 06/07/18 15:10 Paracentesis Mycobacterial Culture - Preliminary 06/07/18 15:10 Paracentesis Gram Stain - Final 06/07/18 15:10 Paracentesis Body Fluid Culture - Final NO GROWTH OF AEROBIC ORGANISMS AFTER 48 HOURS INCUBATION 06/07/18 15:10 Paracentesis Anaerobic Culture - Final NO ANAEROBES WERE ISOLATED 06/08/18 09:20 Stool Salmonella/Shigella Culture - Final NO GROWTH OF SALMONELLA OR SHIGELLA SPECIES OBTAINED 06/08/18 09:20 Stool Campylobacter Culture - Final NO GROWTH OF CAMPYLOBACTER SPECIES OBTAINED 06/08/18 09:20 Stool Yersinia Culture - Final NO GROWTH OF YERSINIA SPECIES OBTAINED 06/08/18 09:20 Stool Vibrio Culture - Final NO GROWTH OF VIBRIO SPECIES OBTAINED 06/08/18 09:20 Stool Escherichia coli 0157 Culture - Final NO GROWTH OF E COLI 0157 OBTAINED 06/08/18 01:31 Stool Gram Stain - Final 06/08/18 01:31 Stool Clostridium difficile Antigen (FLORINA) - Final 06/08/18 01:31 Stool Clostridium difficile Toxin Assay - Final 06/07/18 15:10 Paracentesis RODRIGUEZ Preparation - Preliminary 06/07/18 15:10 Paracentesis Fungal Culture - Preliminary 06/01/18 13:40 Blood - Peripheral Venous Blood Culture - Final NO GROWTH AFTER 5 DAYS INCUBATION 06/01/18 13:50 Blood - Peripheral Venous Blood Culture - Final NO GROWTH AFTER 5 DAYS INCUBATION ASSESSMENT AND PLAN: 67 yom with PMhx of CAD s/p CABG 2005, chronic systolic HF s/p ICD ([employer]), COPD on chronic O2 2-3L, ESRD on HD, hypotension on midodrine, HTN , HLD, admitted to [facility] for hip fracture s/p ORIF, course complicated by mesentric ischemia, s/p right hemicolectomy/jejunal/ileal resection, readmitted on 05/23/2018 with shortness of breath/nausea with HD, found with ascitis s/p paracentesis wiht 700 seropurulent fluid, reported cultures with Kleb Oxytoca, s /p ceftriaxone, d/dena on ?Cipro/flagyl x 7 days readmitted with chest pain/ dyspnea/anxiety during HD, found with ascitis, elevated INR . 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 SVC thrombus -CAD s/p CABG -ICD s/p reported h/o shocks on Amiodarone -COPD on 2-3 L home oxygen -Hypotension on Midodrine (off coreg/ACEi) -Hypothyroidism -Hypoalbuminemia -Anemia, suspect multifactorial s/p 1 unit PRBC 06/06 -Low back pain, musculoskeletal, resolved Plan: repeat paracentesis fluid studies noted, WBC higher. Cultures neg so far. Zosyn per ID. Discussed with Dr. Crum and Dr. Kraus Patient and daughter agreable to transfer to [facility]. Patient accepted at [facility], awaiting bed. Heparin drip Lidocaine patch/flexeril prn. Cardiology input noted. Amiodarone/Midodrine Citalopram/buspirone GIPPX Raniditine Dispo to [facility] awaiting bed Plan discussed with patient and nursing in detail, all questions answered.
--- NOTE | 2018-06-23 12:34 | PN ---
Progress Note (short form) - Note Progress Note: s: no cp sob palps dizzy o: Vital Signs Period Temp Pulse Resp BP Sys/Emery Pulse Ox Last 24 Hr 97 F-98.0 F 55-81 17-20 97-142/47-82 97 Constitutional: Yes: Well Nourished, No Distress, Calm Eyes: Yes: Conjunctiva Clear HENT: Yes: Atraumatic, Normocephalic Neck: Yes: Supple, Trachea Midline Respiratory: Yes: cta bl nl eff Gastrointestinal: Yes: Normal Bowel Sounds, Soft Cardiovascular: Yes: Regular Rate and Rhythm JVD: No Carotid Bruit: No PMI: Non-Displaced Heart Sounds: Yes: S1, S2 Musculoskeletal: No: Back Pain Extremities: No: Cold Edema: trace Peripheral Pulses: 2+ Left Doralis Pedis, 2+ Right Dorsalis Pedis Integumentary: No: Jaundice Neurological: Yes: Alert, Oriented Current Medications Generic Name Dose Route Start Last Admin Trade Name Freq PRN Reason Stop Dose Admin Acetaminophen 650 mg 06/10/18 00:02 06/23/18 10:11 Tylenol - PO 650 mg Q4H PRN Administration HEADACHE Albumin Human 12.5 gm 06/22/18 11:44 06/22/18 12:15 Albumin Human 25% IVPB 12.5 gm Q30M PRN Administration LOW BLOOD PRSSUR Amiodarone HCl 200 mg 06/10/18 10:00 06/23/18 09:58 Cordarone - PO 200 mg DAILY [facility] Administration Buspirone HCl 10 mg 06/10/18 06:00 06/23/18 06:24 Buspar - PO 10 mg TID [facility] Administration Calcium Carbonate 500 mg 06/10/18 07:00 06/23/18 12:14 Os-Merlin 500mg - PO 500 mg TIDAC [facility] Administration Citalopram Hydrobromide 20 mg 06/10/18 10:00 06/23/18 09:58 Celexa - PO 20 mg DAILY [facility] Administration Collagenase 1 applic 06/10/18 10:00 06/22/18 21:12 Santyl - TP 1 applic DAILY [facility] Administration Protocol Cyanocobalamin 100 mcg 06/10/18 10:00 06/23/18 10:06 Vitamin B12 - PO 100 mcg DAILY [facility] Administration Cyclobenzaprine HCl 2.5 mg 06/13/18 12:19 06/23/18 10:06 Cyclobenzaprine Hcl PO 2.5 mg Q12H PRN Administration MUSCLE SPASMS Folic Acid 1 mg 06/10/18 10:00 06/23/18 09:57 Folic Acid - PO 1 mg DAILY [facility] Administration Heparin Sodium (Porcine) 1,000 unit 06/19/18 15:14 06/21/18 10:23 Heparin - IVPUSH 1,000 unit PRN PRN Administration Heparin Heparin Sodium (Porcine) 5,000 unit 06/19/18 15:14 06/19/18 22:10 Heparin - IVPUSH 5,000 unit PRN PRN Administration Heparin Piperacillin Sod/Tazobactam 50 mls @ 100 mls/hr 06/15/18 18:00 06/23/18 10:07 Sod 2.25 gm/ Dextrose IVPB 100 mls/hr Q8H-IV [facility] Administration Heparin Sodium (Porcine) 25, 500 mls @ 20 mls/hr 06/20/18 19:30 06/23/18 11: 19 000 unit/ Sodium Chloride IV 950 unit/hr TITR [facility] 19 mls/hr Administration Protocol 1,000 UNIT/HR Levothyroxine Sodium 125 mcg 06/10/18 06:00 06/23/18 06:24 Synthroid - PO 125 mcg DAILY@0600 [facility] Administration Lidocaine 1 patch 06/12/18 10:00 06/23/18 09:58 Lidoderm Patch - TP 1 patch DAILY [facility] Administration Midodrine 5 mg 06/08/18 10:00 06/23/18 09:58 Proamatine - PO 5 mg TID-MID [facility] Administration Miscellaneous 1 each 06/12/18 22:00 06/22/18 21:12 Lidoderm Patch Removal MC 1 each DAILY@2200 [facility] Administration Multivit/Ca Carb/B Cmplx/FA/Prenat 1 tablet 06/10/18 10:00 06/23/18 09:58 Nephro-Zane - PO 1 tablet DAILY [facility] Administration Ondansetron HCl 4 mg 06/18/18 11:57 06/19/18 02:25 Zofran Injection IVPUSH 4 mg Q4H PRN Administration NAUSEA AND/OR VOMITING Ranitidine HCl 150 mg 06/12/18 10:30 06/23/18 09:57 Zantac - PO 150 mg BID [facility] Administration CBC, BMP 06/23/18 06:00 06/23/18 06:00 Assessment/Plan echo 05/2018 nl LV size, mildly reduced function EF 45-50%, mild global hypokinesis of LV, nl RV, ppm lead in RV and RA, tr TR EKG: sinus, prolonged QTC, old septal infarct ascites: - etiology unclear, per GI - s/p paracentesis, 168 wbcs noted - awaiting transfer to [facility] acute on chronic systolic HF: - mildly reduced EF on echo - appeared volume up as above on admit with SOB - sx's resolved with HD--volume management per renal - appears euvolemic at present time, apart from ascites which is being managed by GI - not on DELANO/BB due to low BP - pt advised to see us in f/u to maintain general cardio care in this area, as he is currently not being closely followed (for chf and cad) Prolonged QTc - avoid QT prolonging agents - maintain K >4, Mg >2 s/p ICD ([employer]) - outpatient follow up, Dr. Stover - recent device checks unremarkable per patient - cont amiodarone hypotension - continue midodrine - sbp remains 90s at times (>> 80s), but stable - same plan ESRD on HD - per renal CAD, s/p CABG - cont statin - holding aspirin due to elevated INR and anemia mesenteric ischemia - recent dx, s/p surgery during recent admission for hip fx anemia - manage per primary ascites: -GI, ID, surgery following, on abx. manage per primary Right IJ dvt: -plans per vascular, on hep gtt
[2018-06-23] MEDS: ONDANSETRON 4 MG/2 ML VIAL IVPUSH PRN ×2 (13:09→18:35)
--- NOTE | 2018-06-23 13:36 | PN ---
Progress Note, Physician - Current Medication List Current Medications: Active Medications Acetaminophen (Tylenol -) 650 mg PO Q4H PRN PRN Reason: HEADACHE Last Admin: 06/23/18 10:11 Dose: 650 mg Albumin Human (Albumin Human 25%) 12.5 gm IVPB Q30M PRN PRN Reason: LOW BLOOD PRSSUR Last Admin: 06/22/18 12:15 Dose: 12.5 gm Amiodarone HCl (Cordarone -) 200 mg PO DAILY [facility] Last Admin: 06/23/18 09:58 Dose: 200 mg Buspirone HCl (Buspar -) 10 mg PO TID [facility] Last Admin: 06/23/18 06:24 Dose: 10 mg Calcium Carbonate (Os-Merlin 500mg -) 500 mg PO TIDAC [facility] Last Admin: 06/23/18 12:14 Dose: 500 mg Citalopram Hydrobromide (Celexa -) 20 mg PO DAILY [facility] Last Admin: 06/23/18 09:58 Dose: 20 mg Collagenase (Santyl -) 1 applic TP DAILY [facility]; Protocol Last Admin: 06/22/18 21:12 Dose: 1 applic Cyanocobalamin (Vitamin B12 -) 100 mcg PO DAILY [facility] Last Admin: 06/23/18 10:06 Dose: 100 mcg Cyclobenzaprine HCl (Cyclobenzaprine Hcl) 2.5 mg PO Q12H PRN PRN Reason: MUSCLE SPASMS Last Admin: 06/23/18 10:06 Dose: 2.5 mg Folic Acid (Folic Acid -) 1 mg PO DAILY [facility] Last Admin: 06/23/18 09:57 Dose: 1 mg Heparin Sodium (Porcine) (Heparin -) 1,000 unit IVPUSH PRN PRN PRN Reason: Heparin Last Admin: 06/21/18 10:23 Dose: 1,000 unit Heparin Sodium (Porcine) (Heparin -) 5,000 unit IVPUSH PRN PRN PRN Reason: Heparin Last Admin: 06/19/18 22:10 Dose: 5,000 unit Piperacillin Sod/Tazobactam (Sod 2.25 gm/ Dextrose) 50 mls @ 100 mls/hr IVPB Q8H-IV [facility] Last Admin: 06/23/18 10:07 Dose: 100 mls/hr Heparin Sodium (Porcine) 25, (000 unit/ Sodium Chloride) 500 mls @ 20 mls/hr IV TITR [facility]; Protocol Last Admin: 06/23/18 11:19 Dose: 950 unit/hr, 19 mls/hr Levothyroxine Sodium (Synthroid -) 125 mcg PO DAILY@0600 [facility] Last Admin: 06/23/18 06:24 Dose: 125 mcg Lidocaine (Lidoderm Patch -) 1 patch TP DAILY [facility] Last Admin: 06/23/18 09:58 Dose: 1 patch Midodrine (Proamatine -) 5 mg PO TID-MID [facility] Last Admin: 06/23/18 09:58 Dose: 5 mg Miscellaneous (Lidoderm Patch Removal) 1 each MC DAILY@2200 [facility] Last Admin: 06/22/18 21:12 Dose: 1 each Multivit/Ca Carb/B Cmplx/FA/Prenat (Nephro-Zane -) 1 tablet PO DAILY [facility] Last Admin: 06/23/18 09:58 Dose: 1 tablet Ondansetron HCl (Zofran Injection) 4 mg IVPUSH Q4H PRN PRN Reason: NAUSEA AND/OR VOMITING Last Admin: 06/23/18 13:09 Dose: 4 mg Ranitidine HCl (Zantac -) 150 mg PO BID [facility] Last Admin: 06/23/18 09:57 Dose: 150 mg - Objective Vital Signs: Vital Signs Temperature 98 F 06/23/18 09:48 Pulse Rate 79 06/23/18 09:48 Respiratory Rate 20 06/23/18 09:48 Blood Pressure 104/50 L 06/23/18 09:48 O2 Sat by Pulse Oximetry (%) 97 06/22/18 21:00 Labs: CBC, BMP 06/23/18 06:00 06/23/18 06:00 INR, PTT INR 1.23 (0.83-1.09) H 06/20/18 07:00
--- NOTE | 2018-06-23 15:04 | PN ---
Physical Exam: SUBJECTIVE: Patient seen and examined by me at bedside. No acute events overnight Awaiting bed at [facility] Otherwise, denies any fever, chills, nausea, vomiting, chest pain, palpitations , headaches OBJECTIVE: Vital Signs Period Temp Pulse Resp BP Sys/Emery Pulse Ox Last 24 Hr 97.6 F-98.0 F 68-81 17-20 97-127/47-82 97 GENERAL: The patient is awake, alert, frail looking and fully oriented, in no acute distress. EYES: Sclera anicteric, conjunctiva clear. No ptosis. ENT: Moist mucous membranes. LUNGS: CTA no wheezing or no accessory muscle use. HEART: Regular rate and rhythm, S1, S2 with (+) JOSIE ABDOMEN: Soft, nontender, nondistended, normoactive bowel sounds (+) vertical incisional scar C/D/I EXTREMITIES: No edema. (+) Stage I ulcer of left heel and second toe SKIN: Warm, dry, normal turgor, no rashes or lesions noted Laboratory Results 06/23/18 06:00 06/23/18 06:00 Active Medications Generic Name Dose Route Start Last Admin Trade Name Freq PRN Reason Stop Dose Admin Acetaminophen 650 mg 06/10/18 00:02 06/23/18 10:11 Tylenol - PO 650 mg Q4H PRN Administration HEADACHE Albumin Human 12.5 gm 06/22/18 11:44 06/22/18 12:15 Albumin Human 25% IVPB 12.5 gm Q30M PRN Administration LOW BLOOD PRSSUR Amiodarone HCl 200 mg 06/10/18 10:00 06/23/18 09:58 Cordarone - PO 200 mg DAILY [facility] Administration Buspirone HCl 10 mg 06/10/18 06:00 06/23/18 14:50 Buspar - PO 10 mg TID [facility] Administration Calcium Carbonate 500 mg 06/10/18 07:00 06/23/18 12:14 Os-Merlin 500mg - PO 500 mg TIDAC JULIAN Administration Citalopram Hydrobromide 20 mg 06/10/18 10:00 06/23/18 09:58 Celexa - PO 20 mg DAILY [facility] Administration Collagenase 1 applic 06/10/18 10:00 06/22/18 21:12 Santyl - TP 1 applic DAILY [facility] Administration Protocol Cyanocobalamin 100 mcg 06/10/18 10:00 06/23/18 10:06 Vitamin B12 - PO 100 mcg DAILY [facility] Administration Cyclobenzaprine HCl 2.5 mg 06/13/18 12:19 06/23/18 10:06 Cyclobenzaprine Hcl PO 2.5 mg Q12H PRN Administration MUSCLE SPASMS Folic Acid 1 mg 06/10/18 10:00 06/23/18 09:57 Folic Acid - PO 1 mg DAILY [facility] Administration Heparin Sodium (Porcine) 1,000 unit 06/19/18 15:14 06/21/18 10:23 Heparin - IVPUSH 1,000 unit PRN PRN Administration Heparin Heparin Sodium (Porcine) 5,000 unit 06/19/18 15:14 06/19/18 22:10 Heparin - IVPUSH 5,000 unit PRN PRN Administration Heparin Piperacillin Sod/Tazobactam 50 mls @ 100 mls/hr 06/15/18 18:00 06/23/18 10:07 Sod 2.25 gm/ Dextrose IVPB 100 mls/hr Q8H-IV JULIAN Administration Heparin Sodium (Porcine) 25, 500 mls @ 20 mls/hr 06/20/18 19:30 06/23/18 11: 19 000 unit/ Sodium Chloride IV 950 unit/hr TITR JULIAN 19 mls/hr Administration Protocol 1,000 UNIT/HR Levothyroxine Sodium 125 mcg 06/10/18 06:00 06/23/18 06:24 Synthroid - PO 125 mcg DAILY@0600 [facility] Administration Lidocaine 1 patch 06/12/18 10:00 06/23/18 09:58 Lidoderm Patch - TP 1 patch DAILY [facility] Administration Midodrine 5 mg 06/08/18 10:00 06/23/18 14:50 Proamatine - PO 5 mg TID-MID JULIAN Administration Miscellaneous 1 each 06/12/18 22:00 06/22/18 21:12 Lidoderm Patch Removal MC 1 each DAILY@2200 [facility] Administration Multivit/Ca Carb/B Cmplx/FA/Prenat 1 tablet 06/10/18 10:00 06/23/18 09:58 Nephro-Zane - PO 1 tablet DAILY [facility] Administration Ondansetron HCl 4 mg 06/18/18 11:57 06/23/18 13:09 Zofran Injection IVPUSH 4 mg Q4H PRN Administration NAUSEA AND/OR VOMITING Ranitidine HCl 150 mg 06/12/18 10:30 06/23/18 09:57 Zantac - PO 150 mg BID JULIAN Administration ASSESSMENT/PLAN: Patient is a 67 year old male with a PMHx of CAD s/p CABG, Defibrillator ( [employer]), COPD (on 2-3L Home O2), ESRD (On HD // via Right Tunnel Cath), CHF presents from [facility]) with Chest pain. #Ascites -Repeat Paracentesis today with 6200 cc of fluids removed. Peritoneal WBC >168k predominately neutrophilic. -Continue IV Zosyn 2.25gm Q8H day#15 -Accepted to [facility] surgical team. Awaiting bed availability #Mesentric ischemia s/p Right Hemicolectomy -Abdominal pain improved after paracentesis (06/20/18). -Accepted to [facility] surgical team. Awaiting bed availability -Continue IV abx with Zosyn 2.25gm Q8H day#15 #Supratherapeutic INR- Resolved -Continue Heparin Drip for thrombus. -Continue to monitor #Back Pain -Lidocaine patch for pain -Flexeril 2.5mg BID PRN #Diarrhea -Improving -Possibly infectious vs mechanical. C.Diff negative. Possibly from recent colectomy -Continue to monitor #Filling defect SVC/Left brachiocephalic -Shown on CTA chest report from 05/23/2018 -UE duplex shows right IJ thrombus -Continue Heparin drip and then transition to Eliquis outpatient #Hypotension -Continue Midodrine -Patient with low BP but has improved -Continue to monitor #Chest pain -Likely due to anxiety. -Resolved #ESRD on HD -HD (,,Tue) -Epogen for anemia -Will need follow up with Dr Woodard for fistula #CAD -Holding Coreg due to hypotension -Continue Amiodarone as patient has history of shocks from ICD #Acute on Chronic systolic CHF -Improved -No SOB today -Continue HD to remove fluid -On no ARB/DELANO or BB due to low BP #Hypothyroidism -Continue LT4 125 mcg, as per endo #Anxiety -Continue Buspar and Celexa #F/E/N -On no fluids -Electrolytes wnl. -Sodium controlled diet #Prophylaxis -Heparin drip for DVT. -No GI required #Disposition -Full code -Waiting for transfer to [facility] when bed available Mindy Floyd [id number] Visit type - Emergency Visit Emergency Visit: Yes ED Registration Date: 05/31/18 Care time: The patient presented to the Emergency Department on the above date and was hospitalized for further evaluation of their emergent condition. - New Patient This patient is new to me today: No - Critical Care Critical Care patient: No
[2018-06-23] MEDS ORDERED: SODIUM CHLORIDE 250 ML IV PRN (15:05)
[2018-06-23] MEDS ORDERED: PANTOPRAZOLE 20 MG TABLET (FP) PO ONE (15:05)
[2018-06-23] MEDS ORDERED: MAG HYDROX/AL HYDROX/SIMETH 30 ML UNIT-DOSE CUP PO ONE (15:05)
--- NOTE | 2018-06-23 15:05 | PN ---
Progress Note, Physician Chief Complaint: Pt seen and examined at bedside. He is awake and alert. He denies shortness of breath. - Current Medication List Current Medications: Active Medications Acetaminophen (Tylenol -) 650 mg PO Q4H PRN PRN Reason: HEADACHE Last Admin: 06/23/18 10:11 Dose: 650 mg Albumin Human (Albumin Human 25%) 12.5 gm IVPB Q30M PRN PRN Reason: LOW BLOOD PRSSUR Last Admin: 06/22/18 12:15 Dose: 12.5 gm Amiodarone HCl (Cordarone -) 200 mg PO DAILY [facility] Last Admin: 06/23/18 09:58 Dose: 200 mg Buspirone HCl (Buspar -) 10 mg PO TID [facility] Last Admin: 06/23/18 14:50 Dose: 10 mg Calcium Carbonate (Os-Merlin 500mg -) 500 mg PO TIDAC [facility] Last Admin: 06/23/18 12:14 Dose: 500 mg Citalopram Hydrobromide (Celexa -) 20 mg PO DAILY [facility] Last Admin: 06/23/18 09:58 Dose: 20 mg Collagenase (Santyl -) 1 applic TP DAILY [facility]; Protocol Last Admin: 06/22/18 21:12 Dose: 1 applic Cyanocobalamin (Vitamin B12 -) 100 mcg PO DAILY [facility] Last Admin: 06/23/18 10:06 Dose: 100 mcg Cyclobenzaprine HCl (Cyclobenzaprine Hcl) 2.5 mg PO Q12H PRN PRN Reason: MUSCLE SPASMS Last Admin: 06/23/18 10:06 Dose: 2.5 mg Folic Acid (Folic Acid -) 1 mg PO DAILY [facility] Last Admin: 06/23/18 09:57 Dose: 1 mg Heparin Sodium (Porcine) (Heparin -) 1,000 unit IVPUSH PRN PRN PRN Reason: Heparin Last Admin: 06/21/18 10:23 Dose: 1,000 unit Heparin Sodium (Porcine) (Heparin -) 5,000 unit IVPUSH PRN PRN PRN Reason: Heparin Last Admin: 06/19/18 22:10 Dose: 5,000 unit Piperacillin Sod/Tazobactam (Sod 2.25 gm/ Dextrose) 50 mls @ 100 mls/hr IVPB Q8H-IV JULIAN Last Admin: 06/23/18 10:07 Dose: 100 mls/hr Heparin Sodium (Porcine) 25, (000 unit/ Sodium Chloride) 500 mls @ 20 mls/hr IV TITR [facility]; Protocol Last Admin: 06/23/18 11:19 Dose: 950 unit/hr, 19 mls/hr Levothyroxine Sodium (Synthroid -) 125 mcg PO DAILY@0600 [facility] Last Admin: 06/23/18 06:24 Dose: 125 mcg Lidocaine (Lidoderm Patch -) 1 patch TP DAILY [facility] Last Admin: 06/23/18 09:58 Dose: 1 patch Midodrine (Proamatine -) 5 mg PO TID-MID [facility] Last Admin: 06/23/18 14:50 Dose: 5 mg Miscellaneous (Lidoderm Patch Removal) 1 each MC DAILY@2200 [facility] Last Admin: 06/22/18 21:12 Dose: 1 each Multivit/Ca Carb/B Cmplx/FA/Prenat (Nephro-Zane -) 1 tablet PO DAILY [facility] Last Admin: 06/23/18 09:58 Dose: 1 tablet Ondansetron HCl (Zofran Injection) 4 mg IVPUSH Q4H PRN PRN Reason: NAUSEA AND/OR VOMITING Last Admin: 06/23/18 13:09 Dose: 4 mg Ranitidine HCl (Zantac -) 150 mg PO BID [facility] Last Admin: 06/23/18 09:57 Dose: 150 mg - Objective Vital Signs: Vital Signs Temperature 98 F 06/23/18 09:48 Pulse Rate 79 06/23/18 09:48 Respiratory Rate 20 06/23/18 09:48 Blood Pressure 104/50 L 06/23/18 09:48 O2 Sat by Pulse Oximetry (%) 97 06/22/18 21:00 Constitutional: Yes: Calm Eyes: Yes: Conjunctiva Clear HENT: Yes: Atraumatic Neck: Yes: Supple Cardiovascular: Yes: S1, S2 Respiratory: Yes: On Nasal O2 Gastrointestinal: Yes: Soft Genitourinary: Yes: WNL Musculoskeletal: Yes: WNL Edema: No Neurological: Yes: Oriented Psychiatric: Yes: Oriented Labs: CBC, BMP 06/23/18 06:00 06/23/18 06:00 INR, PTT INR 1.23 (0.83-1.09) H 06/20/18 07:00 Problem List - Problems (1) ESRD (end stage renal disease) Code(s): N18.6 - END STAGE RENAL DISEASE Assessment/Plan Current Medications Generic Name Dose Route Start Last Admin Trade Name Freq PRN Reason Stop Dose Admin Acetaminophen 650 mg 06/10/18 00:02 06/23/18 10:11 Tylenol - PO 650 mg Q4H PRN Administration HEADACHE Albumin Human 12.5 gm 06/22/18 11:44 06/22/18 12:15 Albumin Human 25% IVPB 12.5 gm Q30M PRN Administration LOW BLOOD PRSSUR Amiodarone HCl 200 mg 06/10/18 10:00 06/23/18 09:58 Cordarone - PO 200 mg DAILY JULIAN Administration Buspirone HCl 10 mg 06/10/18 06:00 06/23/18 14:50 Buspar - PO 10 mg TID JULIAN Administration Calcium Carbonate 500 mg 06/10/18 07:00 06/23/18 12:14 Os-Merlin 500mg - PO 500 mg TIDAC JULIAN Administration Citalopram Hydrobromide 20 mg 06/10/18 10:00 06/23/18 09:58 Celexa - PO 20 mg DAILY JULIAN Administration Collagenase 1 applic 06/10/18 10:00 06/22/18 21:12 Santyl - TP 1 applic DAILY JULIAN Administration Protocol Cyanocobalamin 100 mcg 06/10/18 10:00 06/23/18 10:06 Vitamin B12 - PO 100 mcg DAILY JULIAN Administration Cyclobenzaprine HCl 2.5 mg 06/13/18 12:19 06/23/18 10:06 Cyclobenzaprine Hcl PO 2.5 mg Q12H PRN Administration MUSCLE SPASMS Folic Acid 1 mg 06/10/18 10:00 06/23/18 09:57 Folic Acid - PO 1 mg DAILY JULIAN Administration Heparin Sodium (Porcine) 1,000 unit 06/19/18 15:14 06/21/18 10:23 Heparin - IVPUSH 1,000 unit PRN PRN Administration Heparin Heparin Sodium (Porcine) 5,000 unit 06/19/18 15:14 06/19/18 22:10 Heparin - IVPUSH 5,000 unit PRN PRN Administration Heparin Piperacillin Sod/Tazobactam 50 mls @ 100 mls/hr 06/15/18 18:00 06/23/18 10:07 Sod 2.25 gm/ Dextrose IVPB 100 mls/hr Q8H-IV JULIAN Administration Heparin Sodium (Porcine) 25, 500 mls @ 20 mls/hr 06/20/18 19:30 06/23/18 11: 19 000 unit/ Sodium Chloride IV 950 unit/hr TITR JULIAN 19 mls/hr Administration Protocol 1,000 UNIT/HR Levothyroxine Sodium 125 mcg 06/10/18 06:00 06/23/18 06:24 Synthroid - PO 125 mcg DAILY@0600 JULIAN Administration Lidocaine 1 patch 06/12/18 10:00 06/23/18 09:58 Lidoderm Patch - TP 1 patch DAILY JULIAN Administration Midodrine 5 mg 06/08/18 10:00 06/23/18 14:50 Proamatine - PO 5 mg TID-MID JULIAN Administration Miscellaneous 1 each 06/12/18 22:00 06/22/18 21:12 Lidoderm Patch Removal MC 1 each DAILY@2200 JULIAN Administration Multivit/Ca Carb/B Cmplx/FA/Prenat 1 tablet 06/10/18 10:00 06/23/18 09:58 Nephro-Zane - PO 1 tablet DAILY JULIAN Administration Ondansetron HCl 4 mg 06/18/18 11:57 06/23/18 13:09 Zofran Injection IVPUSH 4 mg Q4H PRN Administration NAUSEA AND/OR VOMITING Ranitidine HCl 150 mg 06/12/18 10:30 06/23/18 09:57 Zantac - PO 150 mg BID JULIAN Administration Impression 1. ESRD 2. CAD 3. CABG 4. COPD 5. CHF 6. SBP 7. DVT 8. hx mesinteric ischemia 9. hypothyroidism 10. gout 11. hld 12. pleural effusion 13. anemia 14. abd pain 15. ascites Plan - HD tomorrow - pending transfer to [facility] - renal diet - discussed with family - will need fistula once medically stable - will follow Dr Jones
[2018-06-23] MEDS ORDERED: SUCRALFATE 1 GM TABLET (FP) PO ONE (18:23)
[2018-06-23] MEDS ORDERED: ACETAMINOPHEN 1000 MG/100 ML VIAL (NON FORMULARY) IVPB ONE (19:31)
[2018-06-23] MEDS: COLLAGENASE CLOSTRIDIUM HIST. 30 GRAMS TUBE TP SCH (22:37)
[2018-06-23] MEDS: LIDOCAINE PATCH REMOVAL MC SCH (23:54)
[2018-06-24] MEDS ORDERED: PIPERACILLIN/TAZOBACTAM 2.25 GM VIAL IVPB ONE (01:17)
[2018-06-24] MEDS ORDERED: DEXTROSE 5%-WATER - 50 ML IVPB ONE (01:17)
[2018-06-24] MEDS: PIPERACILLIN/TAZOB 2.25 GM 2.25 GM in DEXTROSE 5%-WATER - 50 ML IVPB SCH (01:54)
[2018-06-24] MEDS: BANATROL PLUS POWDER PACKET PO SCH (05:31)
[2018-06-24] MEDS: LEVOTHYROXINE NA 125 MCG TABLET (FP) PO SCH (05:32)
[2018-06-24] MEDS: busPIRone HCL 10 MG TABLET (FP) PO SCH (05:32)
[2018-06-24 06:03] VITALS: BP 120/63; PULSE 67; TEMP 97.5
[2018-06-24] MEDS: CALCIUM (OYSTER SHELL) 500 MG TABLET (FP) PO SCH (06:36)
[2018-06-24] MEDS ORDERED: EPOETIN ALFA 2,000 UNIT/1 ML VIAL IVPUSH ONE (15:05)
[2018-06-24] MEDS ORDERED: ALBUMIN HUMAN 25% 12.5 GM/50 ML VIAL IVPB SCH (15:15)
== END 2018-06-24 07:30 | disposition short-term general hospital (02) | DRG 393 ==
LOC: JER 15:54 → JERBED 22:39 → J4W 06-01 15:43 → J5S 06-09 21:26
PROVIDERS: ADMIT Internal Medicine; ATTEND Hospitalist
PROC: 30233N1 Transfusion of Nonautologous Red Blood Cells into Peripheral Vein, Percutaneous Approach (ICD-10-PCS; 2018-06-06)
PROC: 0W9G3ZX Drainage of Peritoneal Cavity, Percutaneous Approach, Diagnostic (ICD-10-PCS; 2018-06-07)
PROC: 0W9G3ZX Drainage of Peritoneal Cavity, Percutaneous Approach, Diagnostic (ICD-10-PCS; principal; 2018-06-20)
DX: K55.059 Acute (reversible) ischemia of intestine, part and extent unspecified (principal); K65.2 Spontaneous bacterial peritonitis; N18.6 End stage renal disease; I50.23 Acute on chronic systolic (congestive) heart failure; R18.8 Other ascites; I82.C11 Acute embolism and thrombosis of right internal jugular vein; I13.2 Hypertensive heart and chronic kidney disease with heart failure and with stage 5 chronic kidney disease, or end stage renal disease; I25.10 Atherosclerotic heart disease of native coronary artery without angina pectoris; J44.9 Chronic obstructive pulmonary disease, unspecified; I95.9 Hypotension, unspecified; I10 Essential (primary) hypertension; R79.1 Abnormal coagulation profile; R19.7 Diarrhea, unspecified; R07.9 Chest pain, unspecified; E03.9 Hypothyroidism, unspecified; D64.9 Anemia, unspecified; E88.09 Other disorders of plasma-protein metabolism, not elsewhere classified; Z95.1 Presence of aortocoronary bypass graft; E78.5 Hyperlipidemia, unspecified; D72.829 Elevated white blood cell count, unspecified; F41.8 Other specified anxiety disorders; G47.00 Insomnia, unspecified
CPT/HCPCS: 36415; 36430; 36511; 71045-TC-FY; 71275-TC; 74177-TC; 74178-TC; 76705-TC; 76942-TC; 80048; 80053; 80074; 80076; 82042; 82150; 82272; 82550; 82565; 82945; 82962; 83605; 83615; 83735; 83880; 83986; 84100; 84134; 84157; 84439; 84443; 84478; 84480; 84484; 84520; 85025; 85027; 85610; 85730; 86140; 86705; 86850; 86900; 86901; 86922; 87040; 87045; 87046; 87070; 87075; 87102; 87116; 87177; 87205; 87206; 87209; 87210; 87324; 87389; 87449; 87804; 88108; 88305-TC; 93005; 93010; 93306-TC; 93970-TC; 94010; 94660; 94761; 97116-GP; 97162-GP; 99284-25; J0131; J0885; J1644; P9038; P9047; P9058